=== PATIENT | male | born 1960 | race African-American/Black ===

== ENCOUNTER 2019-06-07 23:55 | Emergency (ER) | payer OTHER, SELFPAY ==
--- NOTE | ~2019-06-07 | XR_ITS ---
EXAMINATION: XR chest 2V DATE: 06/08/2019 00:38 INDICATION: Shortness of breath. Cough. TECHNIQUE: Frontal and lateral views of the chest were obtained. COMPARISON: None. FINDINGS: The chest demonstrates clear lungs without pneumonia, pleural effusion, or pneumothorax. Th ere is prominent extrapleural fat bilaterally. The heart size is normal. Median sternotomy wires and mediastinal surgical clips are seen, likely from prior coronary artery bypass grafting. IMPRESSION: 1. No acute cardiopulmonary disease. Reviewed, dictated and finalized at location A. O SURVEYOR
[2019-06-07 23:59] VITALS: BP 186/84; PULSE 96; RESP 24; TEMP 37.1; O2SAT 97
--- NOTE | 2019-06-08 00:08 | ECG_ITS ---
Measurements Intervals [place] Rate: 94 P: 62 PA: 172 QRS: 48 QRSD: 162 T: 52 QT: 404 QTc: 505 Interpretive Statements SINUS RHYTHM LEFT BUNDLE BRANCH BLOCK BASELINE WANDER- V6 ABNORMAL ECG Electronically Signed On 06-08-2019 6:48:20 MICA MINER by Coleman Escalante D.O.
[2019-06-08 00:36] LABS: Basophils Absolute Auto 0.1 K/mm3 (0.0-0.1); Basophils Percent Auto 0.8 % (0.2-1.2); Eosinophils Absolute Auto 0.3 K/mm3 (0-0.3); Eosinophils Percent Auto 3.4 % (0-4.4); Hematocrit 38.8 % (42.0-52.0); Hemoglobin 12.1 g/dL (14.0-18.0); Immature Granulocyte Absolute 0.02 K/mm3 (0.00-0.031); Immature Granulocyte Percent A 0.3 % (0-0.5); Lymphocytes Percent Auto 21.4 % (18.3-44.2); Mean Corpuscular HGB Conc 31.2 g/dl (32-36); Mean Corpuscular Volume 80.2 fl (80-100); Mean Platelet Volume 11.3 fl (7.4-10.4); Monocytes Absolute Auto 0.8 K/mm3 (0.1-0.6); Monocytes Percent Auto 10.1 % (2.6-8.5); Neutrophils Absolute Auto 5.1 K/mm3 (1.3-6.7); Platelet Count Result 157 k/mm3 (150-375); Red Blood Count 4.84 M/mm3 (4.6-6.20); Red Cell Distribution Width 15.3 % (11.5-14.5); White Blood Count 7.9 K/mm3 (4.5-10.0)
--- NOTE | 2019-06-08 00:47 | ED.URI ---
HPI - URI/Sore Throat General Chief Complaint: Shortness of Breath/Dyspnea Stated Complaint: CP Time Seen by Provider: 06/08/19 00:37 Source: patient and RN notes reviewed Mode of arrival: EMS Limitations: no limitations History of Present Illness HPI Narrative: Pt is a 58 y/o male who presents to the ED via EMS with c/o prouctive cough and midsternal chest pain starting 3-4 days ago. He notes that his pain radiates into his upper back, and reports that he only has chest pain when he is coughing. He denies jaw pain, shoulder pain, but reports his ribs feel tight when he coughs. He deneis feeling sweaty and no nausea. No syncope or feeling like he might pass out. Pt also reports mild SOB starting this evening, and reports mild sore throat. He currently denies any vomiting, abdominal pain, diarrhea, or back pain. MD elicited complaint: cough and other (Chest Pain) Onset (ago): day(s) (3-4) Associated symptoms: diaphoresis, sore throat and shortness of breath Related Data Allergies Allergy/AdvReac Type Severity Reaction Status Date / Time No Known Allergies Allergy Verified 06/08/19 00:07 Review of Systems Review of Systems: Narrative: CONSTITUTIONAL: Denies fever or chills. Reports sweats. ENT: Reports congestion, rhinorrhea, denies otalgia. Reports sore throat. CARDIOVASCULAR: Reports chest pain with coughing. Denies palpitations or edema. RESPIRATORY: Reports cough and dyspnea. GASTROINTESTINAL: Denies abdominal pain, nausea, vomiting, or diarrhea. MUSCULOSKELETAL: Denies joint pain, or myalgia. All systems reviewed & are unremarkable except as noted in HPI and below PMFSH Past Medical History Medical History Diabetes Surgical History Surgical History Surgical history unknown Social History Social History Smoking status: Unknown if ever smoked Exam Narrative: Exam Narrative: GENERAL: Well-appearing, well-nourished, and in no acute distress. HEAD: Normocephalic, atraumatic. EYES: PERRLA and EOMI. ENT: Nares clear, no rhinorrhea or epistaxis. Mucous membranes moist. Oropharynx clear without erythema or exudate. NECK: Supple. CHEST: No respiratory distress. Mild expiratory wheezing bilateral bases. Coarse breath sounds on rt lung base. No chest wall tenderness. HEART: Regular rate and rhythm. No murmur heard. Normal peripheral pulses. ABDOMEN: Soft, nontender, nondistended, normal active bowel sounds. EXTREMITIES: Normal range of motion. No edema. No calf tenderness. SKIN: Warm, dry, no rash. NEURO: No focal deficits. Alert and oriented. Course Course Emergency Course: Patient presents this facility for evaluation of productive cough. ABCs are intact and vital signs are notable for hypertension at the time of initial assessment. Patient is mildly tachypneic. No hypoxemia. No respiratory distress. Patient with EKG with left bundle branch block, reports he has had chest pain stable for 4 days. I doubt this is an acute finding. No prior visits to this ED as pt reports going to [facility] in the past. Reports more pain only with coughing. Chest x-ray is concerning for right lobe opacity, no leukocytosis. Gave patient a DuoNeb and steroids which did improve him symptoms. Given pain is mostly with coughing, reproducible chest wall tenderness, I feel in the presence of a normal troponin, and symptoms present over 4 days without relief, related to coughing, this is not likely to be ACS. No migratory pain. No ripping or tearing sensation to the back that would be suggestive of aortic pathology. Patient will be treated with antibiotics, steroid for bronchitis type symptoms. No previous records on this patient, he states he has history of chronic kidney disease. Advised follow-up with his primary care provider regarding his kidney function. NO recurrent chest pain or dyspnea
[2019-06-08 00:49] LABS: Blood Urea Nitrogen 24 mg/dL (9-20); Calcium 9.1 mg/dL (8.4-10.2); Carbon Dioxide 19 mmol/L (22-30); Chloride 105 mmol/L (98-107); Estimated Glomerular Filt Rate 51; Glucose 205 mg/dL (75-110); Sodium 143 mmol/L (137-145)
[2019-06-08] MEDS: IPRATROPIUM BR 0.02% INH SOLN 0.5 MG/2.5 ML VIAL INHALATION (01:19)
[2019-06-08] MEDS: ALBUTEROL SULFATE NEB 2.5 MG/0.5 ML INH 5 MG INHALATION (01:19)
[2019-06-08 01:22] VITALS: PULSE 90; RESP 22
[2019-06-08 01:25] LABS: INR 1.1; Prothrombin Time 13.9 Seconds (11.1-14.7)
[2019-06-08 01:26] LABS: Partial Thromboplastin Time 30.4 SECONDS (22.3-36.8)
[2019-06-08 01:27] VITALS: PULSE 94; RESP 24
[2019-06-08 01:30] LABS: Troponin I < 0.012 ng/mL (0.000-0.034)
[2019-06-08] MEDS: ACETAMINOPHEN 500 MG TABLET 1000 MG PO (01:34)
[2019-06-08] MEDS: methylPREDNISolone SOD SUCC 125 MG VIAL IV PUSH (01:34)
[2019-06-08] MEDS: SODIUM CHLORIDE 0.9% IV 500 ML 999 ML IV CONT (01:34)
[2019-06-08 02:25] VITALS: BP 155/77; PULSE 94; RESP 19; O2SAT 96
[2019-06-08 02:39] VITALS: BP 160/75; PULSE 90; RESP 20; O2SAT 97
== END 2019-06-08 02:42 | disposition home or self-care (01) ==
PROVIDERS: Emergency Provider Emergency Medicine
DX: J40 Bronchitis, not specified as acute or chronic (principal); E11.9 Type 2 diabetes mellitus without complications
CPT/HCPCS: 36415; 71046; 80048; 84484; 85025; 85610; 85730; 87804; 93005; 94640; 96374; 99284; A9270; J2930; J7040

== ENCOUNTER 2022-10-06 10:38 | Emergency (ER) | payer OTHER, SELFPAY ==
[2022-10-06 11:41] VITALS: BP 154/86; PULSE 97; RESP 18; TEMP 37.2; O2SAT 96
[2022-10-06 11:55] LABS: Appearance Urine Cloudy (Clear); Bacteria Urine 4+ /hpf; Bilirubin Urine Negative (Negative); Blood Urine Negative (Negative); Color Urine Yellow (Yellow); Glucose Urine UA 3+ mg/dL (Negative); Ketones Urine Negative (Negative); Leukocyte Esterase Ur 2+ LEU/UL (Negative); Nitrate Urine Negative (Negative); Non Pathogenic Casts 0-2; Protein Urine 1+ mg/dL (Negative); RBC Urine 0-2 /hpf (0-2); Squamous Epithelial Cell Urine None seen /hpf (Few); WBC Urine >100 /hpf; pH Urine 5.5 (5.0-9.0)
[2022-10-06 12:01] LABS: Add Urine Microscopic? YES
--- NOTE | 2022-10-06 12:24 | ED.MALEGU ---
HPI - Male Genitourinary General Chief complaint: Urogenital-Male Stated complaint: genitourinary Time Seen by Provider: 10/06/22 12:03 Source: patient and RN notes reviewed Mode of arrival: ambulatory Limitations: no limitations History of Present Illness HPI Narrative: This is a 61 year old male with history of hypertension, DM, asthma who presents for evaluation of dysuria for 3 weeks. Patient states that for 3 weeks he has been having increased urinary frequency, hesitancy, and intermittent dysuria. He states he feels like he also feels like he needs to have bowel movement after urinating. He reports constipation with out rectal bleeding. He denies fever, chills, nausea, vomiting, back pain, or abdominal pain. He states he took flomax 2 years ago after diagnosis of kidney stone but he does not take anything now . He has not follow up with a urologist in 2 years. He denies history of enlarged prostate. Related Data Allergies Allergy/AdvReac Type Severity Reaction Status Date / Time No Known Allergies Allergy Verified 06/08/19 00:07 Review of Systems Constitutional: Constitutional: Denies weakness Cardiovascular: Cardiovascular: Denies syncope, Denies rapid heart rate, Denies irregular heart rhythm, Denies leg edema and Denies dyspnea Respiratory: Respiratory: Denies chest congestion, Denies hemoptysis, Denies excessive phlegm production and Denies dyspnea Gastrointestinal: Gastrointestinal: Denies abdominal pain, Denies hematochezia, Denies diarrhea and Denies vomiting Genitourinary: Genitourinary: Denies hematuria, Denies genital lesions, Reports dysuria, Denies penile discharge, Denies testicular pain and Reports urinary frequency Musculoskeletal: Musculoskeletal: Denies joint swelling, Denies loss of height and Denies muscle weakness Neurologic: Denies syncope, Denies focal weakness and Denies weakness PMFSH Past Medical History Medical History (Updated 10/06/22 @ 12:31 by Zamzam Balderas MD) Asthma Diabetes Hypertension Surgical History Surgical History (Updated 10/06/22 @ 12:28 by Zamzam Balderas MD) H/O lithotripsy Surgical history unknown Social History Social History Smoking status: Unknown if ever smoked Exam Narrative: GENERAL: Well-appearing, well-nourished, and in no acute distress. HEAD: Normocephalic, atraumatic EYES: PERRLA and EOMI, conjunctiva clear without discharge THROAT:Mucous membranes moist, Oropharynx normal without erythema, exudate, peritonsillar swelling or fluctuance NECK: Supple, without lymphadenopathy or mass RESPIRATORY: No respiratory distress, Airway patent, Respirations non-labored, Clear to auscultation without rales, rhonchi or wheeze HEART: Regular rate and rhythm. No murmur heard. Normal peripheral pulses. ABDOMEN: Soft, nontender, nondistended, normal active bowel sounds. No masses. No rebound or guarding, No organomegaly. EXTREMITIES: No edema, normal strength with full range of motion. SKIN: Warm, dry, normal color without rash NEURO: Alert and oriented x3. CN 2-12 grossly intact. No focal deficits. PSYCH: Normal mood and affect. Course Reevaluation(s) Reevaluation #1: I discussed with patient that urinalysis shows UTI. He states he was able to urinate after nurse measured 300 on bladder scan. I discussed option of hawley catheter placement vs discharge home with antibiotics and flomax. I discussed with patient I think this medication with reduce inflammation in prostate and help him to urinate better. He wants to hold off on hawley catheter for now. I discussed he will need follow up with urologist. He appointment this week with new PCP. Date: 10/06/22 Time: 12:28 Vital Signs Vital signs: Vital Signs Temperature 98.9 F 10/06/22 11:41 Pulse Rate 97 10/06/22 11:41 Respiratory Rate 18 10/06/22 11:41 Blood Pressure 154/86 H 10/06/22 11:41 Pulse Oximetry 96 10/06/22 11:41 Ox
[2022-10-06 12:53] VITALS: BP 142/80; PULSE 88; RESP 16; O2SAT 98
== END 2022-10-06 12:54 | disposition home or self-care (01) ==
PROVIDERS: Preventive Medicine Aerospace Medicine; Emergency Provider General Practice
DX: N41.0 Acute prostatitis (principal); E11.9 Type 2 diabetes mellitus without complications; I10 Essential (primary) hypertension; J45.909 Unspecified asthma, uncomplicated
CPT/HCPCS: 81001; 87077; 87086; 87088; 87186; 99283

== ENCOUNTER 2023-03-16 12:01 | Emergency (ER) | payer OTHER, SELFPAY ==
--- NOTE | ~2023-03-16 | XR_ITS ---
XR foot RT min 3V 03/16/2023 14:03 Indication: Right foot pain and swelling Procedure: 4 views right foot Comparison: No prior studies for comparison. Findings: Lisfranc joint intact. No fracture or traumatic malalignment. There are degenerative calcan eal enthesophytes. No foreign bodies. Mild diffuse soft tissue swelling. Impression: 1: No acute fracture. Reviewed, dictated and finalized at location A. S AND LEASING AGENT Impression: 1: No acute fracture.
[2023-03-16 12:13] VITALS: BP 173/77; PULSE 77; RESP 16; TEMP 36.7; O2SAT 97
--- NOTE | 2023-03-16 13:58 | ED.EXTPRO ---
HPI - Extremity Problem General Chief complaint: Extremity Problem,Nontraumatic Stated complaint: R foot pain Time Seen by Provider: 03/16/23 13:32 Source: patient, RN notes reviewed and old records reviewed Mode of arrival: wheelchair Limitations: no limitations History of Present Illness HPI Narrative: This is a 62 year old male with history of DM, CHF who presents for evaluation for right foot pain. Patient developed right foot pain yesterday. He reports pain is located dorsal and lateral foot. He reports bilateral foot swelling that is chronic. He denies any injury. He has not taken any medication for pain. Related Data Home Medications Medication Instructions Recorded Confirmed allopurinol 300 mg tablet 300 mg PO DAILY 11/06/22 atorvastatin 80 mg tablet 80 mg PO DAILY 11/06/22 carvedilol 12.5 mg tablet 12.5 mg PO Q12H 11/06/22 famotidine 20 mg tablet 20 mg PO DAILY 11/06/22 liraglutide 0.6 mg/0.1 mL (18 mg/3 0.6 mg subcut DAILY 11/06/22 mL) subcutaneous pen injector (SureWaves 3-José Manuel) mometasone-formoterol HFA 200 2 puff inhalation BID 11/06/22 mcg-5 mcg/actuation aerosol inhaler (Dulera) montelukast 10 mg tablet 10 mg PO DAILY 11/06/22 omeprazole 10 mg capsule,delayed 10 mg PO DAILY 11/06/22 release spironolactone 25 mg tablet 25 mg PO DAILY 11/06/22 tiotropium bromide 2.5 2 puff inhalation DAILY 11/06/22 mcg/actuation mist for inhalation (Spiriva Respimat) valsartan 160 mg tablet 160 mg PO BID 11/06/22 Allergies Allergy/AdvReac Type Severity Reaction Status Date / Time No Known Allergies Allergy Verified 03/16/23 12:01 [facility] Past Medical History Medical History (Updated 03/16/23 @ 15:17 by Zamzam Balderas MD) Asthma Benign prostatic disease Congestive heart failure COPD (chronic obstructive pulmonary disease) Diabetes GERD (gastroesophageal reflux disease) Hyperlipidemia Hypertension Obstructive sleep apnea Surgical History Surgical History H/O lithotripsy History of coronary artery bypass graft Surgical history unknown Family History Family History (Updated 11/06/22 @ 14:42 by Meghan Block MA) Father Hypertension Heart disease Social History Social History Smoking status: Unknown if ever smoked Alcohol intake: never Substance use: never Substance use type: does not use Lack of Transportation: No Lack of Food: Never True Current Housing: I Have Housing Concerned About Future Housing: No Difficulty Paying Gas/Electric Bills: No Difficulty Paying for Meds: No Currently Unemployed: YES Education: High School Diploma/GED Living arrangements: with family Occupation/Education: unemployed Gender identity (if verbalized by the patient): Male Sexual Orientation (if Verbalized by the Patient): Straight or Heterosexual Spiritual care concerns: No Exam Const: General: no acute distress and alert Nutritional Appearance: obese Orientation/consciousness: patient oriented x3 HENMT: Head: normal to inspection Chest: Chest palpation & inspection: normal inspection of the chest Resp: Effort & Inspection: normal respiratory effort Neuro: General: patient oriented x3, moves all extremities and CN's II-XI intact bilaterally Extrem: General: edema (bilateral pedal edema) Other: chronic venous stasis left lower extremity posterior; no deformity or erythema to foot, no tenderness Psych: Mental Status: mental status grossly normal Affect: normal affect Attitude: cooperative Course Reevaluation(s) Reevaluation #1: I Discussed xray and labs with patient. He is complaining of itching to left lower extremity caused by his stasis dermatitis. I discussed compression of his lower extremities. Date: 03/16/23 Time: 15:15 Vital Signs Vital signs: Vital Signs Temperature 98.0 F 03/16/23 12:13 Pulse Ra
[2023-03-16] MEDS: ACETAMINOPHEN 500 MG TABLET 1000 MG PO (14:24)
[2023-03-16] MEDS: INDOMETHACIN 25 MG CAPSULE PO (14:25)
[2023-03-16 14:29] LABS: Basophils Percent Auto 0.4 % (0.2-1.2); Eosinophils Absolute Auto 0.2 K/mm3 (0-0.3); Eosinophils Percent Auto 3.5 % (0-4.4); Hematocrit 38.2 % (42.0-52.0); Immature Granulocyte Absolute 0.03 K/mm3 (0.00-0.031); Immature Granulocyte Percent A 0.4 % (0-0.5); Lymphocytes Absolute Auto 1.29 K/mm3 (0.9-3.2); Mean Corpuscular HGB Conc 31.4 g/dl (32-36); Mean Corpuscular Hemoglobin 26.1 pg (26-34); Mean Corpuscular Volume 83.2 fl (80-100); Monocytes Absolute Auto 0.6 K/mm3 (0.1-0.6); Monocytes Percent Auto 8.4 % (2.6-8.5); Neutrophils Absolute Auto 4.6 K/mm3 (1.3-6.7); Neutrophils Percent Auto 68.3 % (45.5-73.1); Platelet Count Result 147 k/mm3 (150-375); Red Blood Count 4.59 M/mm3 (4.6-6.20); Red Cell Distribution Width 15.6 % (11.5-14.5); White Blood Count 6.8 K/mm3 (4.5-10.0)
[2023-03-16 14:39] LABS: Anion Gap 10 mmol/L (8-16); Blood Urea Nitrogen 12 mg/dL (9-20); Calcium 8.7 mg/dL (8.4-10.2); Carbon Dioxide 21 mmol/L (22-30); Chloride 110 mmol/L (98-107); Estimated CRCL calculation 73 ml/min; Estimated Glomerular Filt Rate > 60; Glucose 194 mg/dL (65-110); Potassium 3.2 mmol/L (3.4-5.0); Sodium 141 mmol/L (137-145); Uric Acid 6.9 mg/dL (3.5-8.5)
== END 2023-03-16 15:30 | disposition home or self-care (01) ==
PROVIDERS: Emergency Provider General Practice
DX: M79.671 Pain in right foot (principal); I87.2 Venous insufficiency (chronic) (peripheral); E11.9 Type 2 diabetes mellitus without complications; I50.9 Heart failure, unspecified; I11.0 Hypertensive heart disease with heart failure; J44.9 Chronic obstructive pulmonary disease, unspecified; E78.5 Hyperlipidemia, unspecified; N40.0 Benign prostatic hyperplasia without lower urinary tract symptoms; K21.9 Gastro-esophageal reflux disease without esophagitis; G47.33 Obstructive sleep apnea (adult) (pediatric); Z95.1 Presence of aortocoronary bypass graft; Z79.85 Long-term (current) use of injectable non-insulin antidiabetic drugs; Z79.4 Long term (current) use of insulin
CPT/HCPCS: 36415; 73630; 80048; 84550; 85025; 99283; A9270

== ENCOUNTER 2023-05-31 14:36 | Emergency (ER) | payer OTHER, SELFPAY ==
--- NOTE | ~2023-05-31 | CT_ITS ---
EXAMINATION: CTA chest PE protocol DATE: 05/31/2023 22:49 INDICATION: dyspnea, elevated D-dimer TECHNIQUE: Computed tomography angiography (CTA) of the chest was performed with 100 mL Omnipaque-350 intravenous contrast timed to evaluate the pulmonary arteries. Coronal maximum intensity projection 3D-reconstructions were created by the technologist. The dose-length product (DLP) was 2194.68 mGy-cm . Automated exposure control and iterative reconstruction technique were employed. COMPARISON: X-ray chest, same date. FINDINGS: Lung parenchyma and airways: Mild septal thickening. Dependent atelectasis. Pleura: Small bilateral pleural fluid collections. Thoracic inlet, axillae and chest wall: Intact sternotomy wires. Bilateral symmetric gynecomastia Thoracic aorta: Mild arch calcification. Mediastinum: Normal. Heart and pericardium: Cardiomegaly. Coronary artery calcifications: Mild. Upper abdomen: Splenic cysts/hemangiomas. Bones: No acute osseous finding. Pulmonary arteries: Study quality: Borderline pulmonary arterial enhancement, even after repeated harris ging attempts. No pulmonary emboli detected. IMPRESSION: No CT evidence of acute pulmonary embolus in the remaining pulmonary arteries. Cardiomegaly with mild interstitial pulmonary edema. Small bilateral pleural effusions. Reviewed, dictated and finalized at location K. CUTTING MACHINE OPERATOR IMPRESSION: No CT evidence of acute pulmonary embolus in the remaining pulmonary arteries. Cardiomegaly with mild interstitial pulmonary edema. Small bilateral pleural ef fusions.
--- NOTE | ~2023-05-31 | XR_ITS ---
EXAMINATION: XR chest 2V Exam Date/Time: 05/31/2023 15:00 PARTS CATALOGER HISTORY: Cough, SOB FOR 2 MONTHS Comparison: 06/08/2019. RESULT: Lines, tubes, and devices: Intact sternotomy wires. Lungs and pleura: Streaky perihilar opacities. Septal thickening. Mild bilateral costophrenic angle blunting. Cardiomediastinal silhouette: Stable. Other: No acute osseous or upper abdominal finding. IMPRESSION: Mild pulmonary edema. Small bilateral pleural effusions. Reviewed, dictated and finalized at location K. S CATALOGER
[2023-05-31 14:57] VITALS: BP 195/90; PULSE 86; RESP 18; TEMP 37; O2SAT 95
--- NOTE | 2023-05-31 19:05 | ECG_ITS ---
Measurements Intervals [place] Rate: 76 P: 76 [place]: 161 QRS: 97 QRSD: 153 T: 18 QT: 445 QTc: 500 Interpretive Statements SINUS RHYTHM WITH OCCASIONAL SUPRAVENTRICULAR PREMATURE COMPLEXES LEFT BUNDLE BRANCH BLOCK ABNORMAL ECG COMPARED TO ECG 06/08/2019 00:00:42 INTRAVENTRICULAR CONDUCTION DELAY NOW PRESENT Electronically Signed On 05-31-2023 19:24:52 DISTRICT MANAGER POSTAL SERVICE by Dante Rust M.D.
--- NOTE | 2023-05-31 19:27 | ED_ITS ---
Pulse Oximetry 95 05/31/23 14:57 Oxygen Delivery Room Air 05/31/23 14:57 Temperature 98.9 F 05/31/23 19:51 Pulse Rate 83 05/31/23 20:05 Respiratory Rate 20 05/31/23 20:05 Blood Pressure 175/99 H 05/31/23 19:51 Pulse Oximetry 100 05/31/23 19:54 Oxygen Delivery Room Air 05/31/23 19:54 MDM - URI/Sore Throat MDM Narrative Medical decision making narrative: Patient presents with the above complaint. Initial vitals are remarkable for hypertension. Physical examination as noted above. Plan discussed: Laboratory analysis, EKG, chest x-ray, furosemide 40 mg IV push, DuoNeb breathing treatment, 120 mg IV push methyl prednisolone, azithromycin p.o. 500 mg. Patient was reassessed at the bedside. No changes in physical exam. Patient is in no acute distress. The patient has remained stable throughout the entire ED visit. Counseled patient regarding diagnostic results and potential diagnosis. Anticipatory guidance provided. Patient instructed to follow up with PCP within 2 days. Patient counseled on: false reassurance from an emergency department evaluation; no current evidence of a medical emergency; return immediately for any new, recurrent, worsening, concerning, or refractory symptoms. Patient prescribed azithromycin. Prescription sent to preferred pharmacy. Medications discussed with patient. Additional verbal and printed discharge instructions were given and discussed with the patient. Patient verbally acknowledges understanding of condition and discharge instructions. All questions were answered to the patient's satisfaction. Patient is in agreement with the plan of care. The patient is stable for discharge and was discharged without incident. Differential Diagnosis Differential diagnosis: Likely upper respiratory infection, viral infection, bronchitis, influenza and other (ACS, pneumonia, pulmonary embolism, asthma exacerbation, heart failure exacerbation.) Medical Records Attestation: I reviewed the patient's medical records. Lab Data Attestation: I reviewed the patient's lab results. Lab results narrative: CBC reveals a hemoglobin of 12.7 and otherwise grossly within normal limits. Coags are grossly within normal limits. D-dimer 0.84. VBG with a pH is 7.499 and a pCO2 of 28.2 and a bicarb of 21.4. Lactic acid is 1.0. Rapid COV ID/influenza/RSV PCR testing is negative. Procalcitonin 0.1. Comprehensive metabolic panel reveals a chloride of 110, glucose 172, otherwise grossly within normal limits. CRP is less than 0.5. Troponin is 0.040. Magnesium 2.0. Repeat troponin is down trending 0.038. 05/31/23 19:38 05/31/23 21:24 Labs: Lab Results 05/31/23 05/31/23 05/31/23 Range/Units 19:38 19:44 21:24 WBC 5.7 (4.5-10.0) K/mm3 RBC 5.01 (4.6-6.20) M/mm3 Hgb 12.7 L (14.0-18.0) g/dL Hct 41.2 L (42.0-52.0) % MCV 82.2 (80-100) fl MCH 25.3 L (26-34) pg MCHC 30.8 L (32-36) g/dl RDW 14.8 H (11.5-14.5) % Plt Count 164 (150-375) k/mm3 MPV 12.5 H (7.4-10.4) fl Immature Gran % (Auto) 0.5 (0-0.5) % Neut % (Auto) 63.0 (45.5-73.1) % Lymph % (Auto) 24.7 (18.3-44.2) % [place] % (Auto) 7.6 (2.6-8.5) % Eos % (Auto) 3.7 (0-4.4) % Baso
--- NOTE | 2023-05-31 19:27 | ED.URI ---
HPI - URI/Sore Throat General Chief Complaint: Upper Respiratory Infection Stated Complaint: uri/fever Time Seen by Provider: 05/31/23 19:05 Source: patient Limitations: no limitations History of Present Illness HPI Narrative: Patient is a 62-year-old male presents to the emergency department complaining of a cough and difficulty breathing for the past couple months and has not gotten markedly worse rather has not gone away prompting to come get further evaluation. Patient states that his cough is productive of green tinged sputum, has not seen anyone about this and is the taking Robitussin for it in addition to his breathing treatments for his asthma at home. Patient denies smoking. Patient admits to recent steroid use approximately 1 month ago. Patient is as breathing treatments seem to be helping a little bit of times. Patient admits to history of open heart surgery and has a history of heart failure for which he has been taking his diuretics as prescribed and seeing a heart doctor regularly and notes that his leg swelling is fairly stable and not worsening. Patient denies history of blood clots. Patient denies unilateral lower extremity swelling. Patient denies chest pain, fever, recent injuries, recent illness, sore throat, abdominal pain, nausea, vomiting, diarrhea, melena, hematochezia, numbness, weakness. Patient denies orthopnea. Related Data Home Medications Medication Instructions Recorded Confirmed allopurinol 300 mg tablet 300 mg PO DAILY 11/06/22 atorvastatin 80 mg tablet 80 mg PO DAILY 11/06/22 carvedilol 12.5 mg tablet 12.5 mg PO Q12H 11/06/22 famotidine 20 mg tablet 20 mg PO DAILY 11/06/22 liraglutide 0.6 mg/0.1 mL (18 mg/3 0.6 mg subcut DAILY 11/06/22 mL) subcutaneous pen injector (Victoza 3-José Manuel) mometasone-formoterol HFA 200 2 puff inhalation BID 11/06/22 mcg-5 mcg/actuation aerosol inhaler (Dulera) montelukast 10 mg tablet 10 mg PO DAILY 11/06/22 omeprazole 10 mg capsule,delayed 10 mg PO DAILY 11/06/22 release spironolactone 25 mg tablet 25 mg PO DAILY 11/06/22 tiotropium bromide 2.5 2 puff inhalation DAILY 11/06/22 mcg/actuation mist for inhalation (Spiriva Respimat) valsartan 160 mg tablet 160 mg PO BID 11/06/22 Allergies Allergy/AdvReac Type Severity Reaction Status Date / Time No Known Allergies Allergy Verified 05/31/23 15:00 Review of Systems Review of Systems: A 10 system review of systems was completed on the patient and is negative except for what is stated in the HPI. Nursing and ancillary documentation was reviewed. [facility] Past Medical History Medical History (Updated 05/31/23 @ 23:45 by Quincy Patel DO) Asthma Benign prostatic disease Congestive heart failure COPD (chronic obstructive pulmonary disease) Diabetes GERD (gastroesophageal reflux disease) Hyperlipidemia Hypertension Obstructive sleep apnea Surgical History Surgical History H/O lithotripsy History of coronary artery bypass graft Surgical history unknown Family History Family History (Updated 11/06/22 @ 14:42 by Meghan Block MA) Father Hypertension Heart disease Social History Social History Smoking status: Unknown if ever smoked Alcohol intake: never Substance use: never Substance use type: does not use Lack of Transportation: No Lack of Food: Never True Current Housing: I Have Housing Concerned About Future Housing: No Difficulty Paying Gas/Electric Bills: No Difficulty Paying for Meds: No Currently Unemployed: YES Education: High School Diploma/GED Living arrangements: with family Occupation/Education: unemployed Gender identity (if verbalized by the patient): Male Sexual Orientation (if Verbalized by the Patient): Straight or Heterosexual Spiritual care concerns: No Comments At time of signature, I have reviewe
[2023-05-31] MEDS: IPRATROPIUM 0.5 MG/ALBUTEROL SULFATE 2.5 MG AMPUL.NEB 3 ML INHALATION (19:41)
[2023-05-31 19:43] VITALS: PULSE 75; RESP 18
[2023-05-31] MEDS: FUROSEMIDE INJ 40 MG/4 ML VIAL IV PUSH (19:45)
[2023-05-31] MEDS: methylPREDNISolone SOD SUCC 40 MG VIAL 120 MG IV PUSH (19:46)
[2023-05-31] MEDS: AZITHROMYCIN 250 MG TABLET 500 MG PO (19:46)
[2023-05-31 19:51] VITALS: BP 175/99; PULSE 72; RESP 16; TEMP 37.2; O2SAT 100
[2023-05-31 19:54] VITALS: O2SAT 100
[2023-05-31 19:57] LABS: Basophils Percent Auto 0.5 % (0.2-1.2); Eosinophils Absolute Auto 0.2 K/mm3 (0-0.3); Eosinophils Percent Auto 3.7 % (0-4.4); Hematocrit 41.2 % (42.0-52.0); Hemoglobin 12.7 g/dL (14.0-18.0); Immature Granulocyte Absolute 0.03 K/mm3 (0.00-0.031); Immature Granulocyte Percent A 0.5 % (0-0.5); Lymphocytes Percent Auto 24.7 % (18.3-44.2); Mean Corpuscular HGB Conc 30.8 g/dl (32-36); Mean Corpuscular Hemoglobin 25.3 pg (26-34); Mean Corpuscular Volume 82.2 fl (80-100); Mean Platelet Volume 12.5 fl (7.4-10.4); Monocytes Absolute Auto 0.4 K/mm3 (0.1-0.6); Monocytes Percent Auto 7.6 % (2.6-8.5); Neutrophils Absolute Auto 3.6 K/mm3 (1.3-6.7); Platelet Count Result 164 k/mm3 (150-375); Red Blood Count 5.01 M/mm3 (4.6-6.20); Red Cell Distribution Width 14.8 % (11.5-14.5); White Blood Count 5.7 K/mm3 (4.5-10.0)
[2023-05-31 19:59] LABS: Fractional Inspired Oxygen 21 %; HCO3 VBG 21.4 mEq/l (24.0-30.0); PO2 VBG 77.9 mmHg (35.0-45.0)
[2023-05-31 20:00] LABS: pH VBG 7.499 (7.300-7.400)
[2023-05-31 20:01] LABS: Device ROOM AIR; PCO2 VBG 28.2 mmHg (42.0-48.0)
[2023-05-31 20:05] VITALS: PULSE 83; RESP 20
[2023-05-31 20:11] LABS: INR 1.1; Partial Thromboplastin Time 30.8 SECONDS (22.3-36.8); Prothrombin Time 14.4 Seconds (11.1-14.7)
[2023-05-31 20:23] LABS: D Dimer 0.84 ug/mL (<0.48)
[2023-05-31 20:31] LABS: Procalcitonin 0.1 ng/mL
[2023-05-31 20:33] LABS: Influenza A QL RT-PCR Negative (Negative); Influenza B QL RT-PCR Negative (Negative); RSV RNA, RT-PCR Negative (Negative); SARS-CoV-2 RNA PCR Negative (Negative)
[2023-05-31 21:57] LABS: Alanine Aminotransferase 23 U/L (6-50); Albumin Level 4.1 g/dL (3.5-5.1); Alkaline Phosphatase 87 U/L (38-126); Anion Gap 9 mmol/L (8-16); Aspartate Amino Transferase 22 U/L (17-59); Bilirubin,Total 0.7 mg/dL (0.2-1.3); Blood Urea Nitrogen 14 mg/dL (9-20); CRP < 0.5 mg/dL (<1.0); Calcium 9.4 mg/dL (8.4-10.2); Carbon Dioxide 23 mmol/L (22-30); Chloride 110 mmol/L (98-107); Estimated CRCL calculation 67 ml/min; Estimated Glomerular Filt Rate > 60; Glucose 172 mg/dL (65-110); Potassium 3.5 mmol/L (3.4-5.0); Sodium 142 mmol/L (137-145)
--- NOTE | 2023-05-31 22:08 | ECG_ITS ---
Measurements Intervals [place] Rate: 76 P: 71 [place]: 153 QRS: 89 QRSD: 165 T: -55 QT: 449 QTc: 506 Interpretive Statements SINUS RHYTHM WITH SINUS ARRHYTHMIA LEFT BUNDLE BRANCH BLOCK ABNORMAL ECG COMPARED TO ECG 05/31/2023 19:20:13 NO DIFFERENCE Electronically Signed On 06-01-2023 8:07:47 GATE SHEAR OPERATOR by Dante Rust M.D.
[2023-05-31 23:00] LABS: Troponin I 0.038 ng/mL (0.000-0.034)
[2023-06-01 00:20] VITALS: BP 185/85; PULSE 78; RESP 18; O2SAT 98
== END 2023-06-01 02:58 | disposition home or self-care (01) ==
PROVIDERS: Emergency Provider Student in an Organized Health Care Education/Training Program; PCP Family Medicine
DX: I50.9 Heart failure, unspecified (principal); R06.00 Dyspnea, unspecified; R05.9 Cough, unspecified; Z20.822 Contact with and (suspected) exposure to COVID-19; J44.9 Chronic obstructive pulmonary disease, unspecified; I11.0 Hypertensive heart disease with heart failure; E11.9 Type 2 diabetes mellitus without complications; E78.5 Hyperlipidemia, unspecified; N40.0 Benign prostatic hyperplasia without lower urinary tract symptoms; K21.9 Gastro-esophageal reflux disease without esophagitis; G47.33 Obstructive sleep apnea (adult) (pediatric); Z95.1 Presence of aortocoronary bypass graft; Z79.85 Long-term (current) use of injectable non-insulin antidiabetic drugs; Z79.4 Long term (current) use of insulin; I44.7 Left bundle-branch block, unspecified; I49.1 Atrial premature depolarization; I51.7 Cardiomegaly
CPT/HCPCS: 36415; 71046; 71275; 80053; 82803; 83605; 83735; 84145; 84484; 85025; 85380; 85610; 85730; 86140; 87637; 93005; 94640; 96374; 96375; 99284; A9270; J1940; J2920; Q9967

== ENCOUNTER 2024-04-12 15:24 | Inpatient (IN) | payer OTHER, MEDICAID, SELFPAY ==
[2024-04-12] VITALS (14 sets, daily range): BP systolic 149–171; BP diastolic 56–118; PULSE 76–91; RESP 16–26; TEMP 36.6–36.7; O2SAT 94–99; BMI 42.0
--- NOTE | ~2024-04-12 | US_ITS ---
Limited Abdominal Sonogram: Real-time sonographic imaging of the abdomen was performed. Clinical History: Splenic abnormality on CT COMPARISON: CT scan dated 04/12/2024 Findings: The liver appears echogenic, with no evidence of mass lesion or bile duct dilatation. Main portal vein demonstrates normal direction of flow. The gallbladder is well distended, and appears no rmal with no evidence of gallstone or wall thickening. The common bile duct measures 3 mm. The visua lized pancreas, aorta, and IVC are unremarkable. Spleen measures 15.3 x 10.5 x 12.2 cm in size. There is a hypoechoic solid splenic mass measuring 10. 4 x 9.4 x 9.9 cm, with possible small central cystic component. Impression: Diffuse fatty infiltration of liver. 10.4 x 9.4 x 9.9 cm predominantly echogenic, solid splenic mass. This could reflect large splenic hem angioma. Further evaluation with pre and postcontrast MRI should be considered. Reviewed, dictated and finalized at [facility]. ARCHITECT Impression: Diffuse fatty infiltration of liver. 10.4 x 9.4 x 9.9 cm predominantly echogenic, solid splenic mass. This could ref lect large splenic hemangioma. Further evaluation with pre and postcontrast MRI should be considered.
--- NOTE | ~2024-04-12 | CT_ITS ---
CTA chest PE protocol Ordering provider: Lenin Martinez MD History: 63 years Male with . sob, elevated ddimer . Comparison: May 31, 2023 Technique: CT angiogram chest was performed following timed intravenous injection of contrast. Thin s lice axial images and reformatted coronal images were obtained. Three dimensional reformatted images of the chest were also obtained using a [employer] workstation. . Automated exposure control and iterati ve reconstruction technique were employed. The dose-length product was 997.71 mGy-cm. 100 mL Omnipaqu e 350 was given IV. Findings: PULMONARY ARTERIES: No pulmonary embolus. VISUALIZED THORACIC INLET: Prominent left thyroid with possible nodule. Ultrasound evaluation advised . MEDIASTINUM: Aorta/coronary arteries: Mild atheromatous disease. Heart/other: The heart is not enlarged. Lymph nodes: No mediastinal or hilar adenopathy. Postoperative changes in the mediastinum. LUNGS: No pulmonary nodules or masses. No pneumothorax. Bilateral pleural effusion larger on the right side is seen with adjacent atelectasis versus pneumonia.. VISUALIZED UPPER ABDOMEN: Bulge in the spleen is seen which may indicate a mass with small hypodensit ies. Ultrasound evaluation advised. Otherwise, the visualized upper abdomen is normal. MUSCULOSKELETAL: Soft tissues: The superficial soft tissues are normal. Bones: Age appropriate degenerative changes of the spine. IMPRESSION: 1. No pulmonary embolism. 2. Bilateral moderate pleural effusion with adjacent atelectasis versus pneumonia. 3. Large bulge seen in the spleen unchanged from previous examination. Further evaluation advised to exclude a mass. Abscess or hematoma is less likely although cannot be excluded. Reviewed, dictated and finalized at location [facility]. [facility] [employer] IMPRESSION: 1. No pulmonary embolism. 2. Bilateral moderate pleural effusion with adjacent atelectasis versus pneumo adriana. 3. Large bulge seen in the spleen unchanged from previous examination. Further evaluation advised to exclude a mass. Abscess or hematoma is less likely altho ugh cannot be excluded.
--- NOTE | ~2024-04-12 | XR_ITS ---
EXAMINATION: XR chest 1V portable DATE: 04/12/2024 16:59 INDICATION: Shortness of breath. TECHNIQUE: A single frontal view of the chest was obtained. COMPARISON: Chest 2 views 05/31/2023, chest CT 05/31/2023 FINDINGS: There are small pleural effusions. There are mild bilateral perihilar airspace opacities, c onsistent with mild pulmonary edema. No pneumothorax. Cardiomegaly is noted. Median sternotomy wires are noted. IMPRESSION: 1. Mild pulmonary edema. 2. Small pleural effusions. 3. Cardiomegaly. Reviewed, dictated and finalized at location A. [facility] [employer]
--- NOTE | 2024-04-12 15:36 | ED_ITS ---
HPI - SOB/Dyspnea General Chief Complaint: Shortness of Breath/Dyspnea <Roxy Bloom PA-C - Last Filed: 04/12/24 16:23> Stated Complaint: shortmess of breath cough <Roxy Bloom PA-C - Last Filed: 04/12/24 16:23> Time Seen by Provider: 04/12/24 15:36 <PUMA Gomes Last Filed: 04/12/24 16:23> Focused HPI: Patient is a 63-year-old male, with past medical history of asthma, who presents the ED with report of shortness of breath. Reports he has been feeling increasingly short of breath over the past few weeks, progressively worsening to the point having trouble walking to/from the bathroom, speaking full sentences. Also reports having recent cough, congestion, intermittent swelling in BLE. Denies fevers. Denies CP. GENERAL: Well-appearing. morbidly obese with BMI of 40.9, and in no acute distress. HEAD: Normocephalic, atraumatic. CHEST: Decreased air movement throughout, occ exp wheezing. Some accessory muscle use, tachypneic HEART: Regular rate and rhythm.? MSK: 1+ pitting edema BLE NEURO: ?Alert and oriented x3. Patient screened in triage and initial orders placed.? ?Additional care and disposition to be based upon?diagnostic testing and treatment. 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 Denies any fever or chills. Patient states that he goes to [facility] for his care. Has not seen inclusion intern in the recent past. No previous history of CAD. Never had stress test Upon chart review patient was admitted in the hospital in May of this year with CHF <Lenin Martinez MD - Last Filed: 04/12/24 18:41> MD elicited complaint: shortness of breath and cough <Lenin Martinez MD - Last Filed: 04/12/24 18:41> Pertinent past history: asthma <Lenin Martinez MD - Last Filed: 04/12/24 18:41> Onset (ago): month(s) (3) <Lenin Martinez MD - Last Filed: 04/12/24 18:41> Timing: constant <Lenin Martinez MD - Last Filed: 04/12/24 18:41> Severity: moderate <Lenin Martinez MD - Last Filed: 04/12/24 18:41> Exacerbating factors: nothing <Lenin Martinez MD - Last Filed: 04/12/24 18:41> Relieving factors: nothing <Lenin Martinez MD - Last Filed: 04/12/24 18:41> Known history of: asthma <Leinn Martinez MD - Last Filed: 04/12/24 18:41> Associated symptoms: denies other symptoms <Lenin Martinez MD - Last Filed: 04/12/24 18:41> Treatment prior to arrival: none <Lenin Martinez MD - Last Filed: 04/12/24 18:41> Related Data Home Medications: Home Medications ?Medication ?Instructions ?Recorded ?Confirmed ?Last Taken ?Type allopurinol 300 mg tablet 300 mg PO DAILY 11/06/22 Unknown History atorvastatin 80 mg tablet 80 mg PO DAILY 11/06/22 Unknown History carvedilol 12.5 mg tablet 12.5 mg PO Q12H 11/06/22 Unknown History famotidine 20 mg tablet 20 mg PO DAILY 11/06/22 Unknown History liraglutide 0.6 mg/0.1 mL (18 mg/3 0.6 mg subcut DAILY 11/06/22 Unknown History mL) subcutaneous pen injector ([employer] 3-José Manuel) mometasone-formoterol HFA 200 2 puff inhalation BID 11/06/22 Unknown History mcg-5 mcg/actuation aerosol inhaler (Dulera) montelukast 10 mg tablet 10 mg PO DAILY 11/06/22 Unknown History omeprazole 10 mg capsule,delayed 10 mg PO DAILY 11/06/22 Unknown History release spironolactone 25 mg tablet 25 mg PO DAILY 11/06/22 Unknown History tiotropium bromide 2.5 2 puff inhalation DAILY 11/06/22 Unknown History mcg/actuation mist for inhalation (Spiriva Respimat) valsartan 160 mg tablet 160 mg PO BID 11/06/22 Unknown History <Roxy Bloom PA-C - Last Filed: 04/12/24 16:23> Allergies/Adverse Reactions: Allergies Allergy/AdvReac Type Severity Reaction Status Date / Time No Known Allergies Allergy Verified 04/12/24 16:36 <Roxy Bloom PA-C - Last Filed: 04/12/24 16:23> Review of Systems 2 Review of Systems: All systems reviewed & are unremarkable except as noted in HPI and below <Lenin Martinez MD - Last Filed: 04/12/24 18:41> Constitutional: Constitutional: Reports no additional constitutional complaints <Lenin Martinez MD - Last Filed: 04/12/24 18:41> Eyes: Eyes: Reports no additional eye complaints <Lenin Martinez MD - Last Filed: 04/12/24 18:41> ENT: Reports system reviewed and no additional complaints, except as documented <Lenin Martinez MD - Last Filed: 04/12/24 18:41> Cardiovascular: Cardiovascular: Reports no additional cardiovascular complaints <Lenin Martinez MD - Last Filed: 04/12/24 18:41> Respiratory: Respiratory: Reports as per HPI <Lenin Martinez MD - Last Filed: 04/12/24 18:41> Gastrointestinal: Gastrointestinal: Reports no additional gastrointestinal complaints <Lenin Martinez MD - Last Filed: 04/12/24 18:41> Musculoskeletal: Musculoskeletal: Reports no additional musculoskeletal complaints <Lenin Martinez MD - Last Filed: 04/12/24 18:41> Neurologic: Reports system reviewed and no additional complaints, except as documented <Lenin Martinez MD - Last Filed: 04/12/24 18:41> [facility] Past Medical History Medical History: Medical History Obstructive sleep apnea Benign prostatic disease GERD (gastroesophageal reflux disease) Congestive heart failure Hyperlipidemia COPD (chronic obstructive pulmonary disease) Asthma Hypertension Diabetes <Roxy Bloom PA-C - Last Filed: 04/12/24 16:23> Surgical History Surgical History: Surgical History History of coronary artery bypass graft H/O lithotripsy Surgical history unknown <Roxy Bloom PA-C - Last Filed: 04/12/24 16:23> Family History Family History: Family History Father Hypertension Heart disease <Roxy Bloom PA-C - Last Filed: 04/12/24 16:23> Social History Social History: Social History Smoking status: Unknown if ever smoked Alcohol intake: never Substance use: never Substance use type: does not use Lack of Transportation: No Lack of Food: Never True Current Housing: I Have Housing Concerned About Future Housing: No Difficulty Paying Gas/Electric Bills: No Difficulty Paying for Meds: No Currently Unemployed: YES Education: High School Diploma/GED Living arrangements: with family Occupation/Education: unemployed Gender identity (if verbalized by the patient): Male Sexual Orientation (if Verbalized by the Patient): Straight or Heterosexual Spiritual care concerns: No <Roxy Bloom PA-C - Last Filed: 04/12/24 16:23> Exam 2 Narrative: GENERAL: Well-appearing, morbidly obese, and in no acute distress. Coughing frequently HEAD: Normocephalic, atraumatic. EYES: PERRLA and EOMI.. NECK: Supple. CHEST: Mild wheeze . No respiratory distress. HEART: Regular rate and rhythm. No murmur heard. Normal peripheral pulses. ABDOMEN: Soft, nontender, nondistended, normal active bowel sounds. EXTREMITIES: Normal range of motion. has 2+ edema. SKIN: Warm, dry, no rash. NEURO: No focal deficits. Alert and oriented x3. PSYCH: Normal mood and affect. <Lenin Martinez MD - Last Filed: 04/12/24 18:41> Course Course Emergency Course: Patient upon arrival had a EKG had showed left bundle-branch block with minor ST elevation , did consult Cardiology Dr. Thakkar was here to see the patient he does not think this is STEMI. Patient did receive nebulizer treatment which helped the cough. IV Lasix was given. did inform the pt and his about his lab and chest xray finding agreed with admission. <Lenin Martinez MD - Last Filed: 04/12/24 18:41> Patient upon arrival had a EKG had showed left bundle-branch block with minor ST elevation , did consult Cardiology Dr. Thakkar was here to see the patient he does not think this is STEMI. Patient did receive nebulizer treatment which helped the cough. IV Lasix was given. did inform the pt and his about his lab and chest xray finding agreed with admission. RICHARD: patient signed out pending CTA. Negative for PE. patient admitted. < Jose Alberto Tijerina MD - Last Filed: 04/12/24 18:57> Vital Signs Vital signs: Vital Signs Temperature 97.8 F 04/12/24 15:29 Pulse Rate 88 04/12/24 15:29 Respiratory Rate 26 H 04/12/24 15:29 Blood Pressure 164/118 H 04/12/24 15:29 Pulse Oximetry 95 04/12/24 15:29 Oxygen Delivery Room Air 04/12/24 15:29 Temperature 97.8 F 04/12/24 15:29 Pulse Rate 87 04/12/24 18:51 Respiratory Rate 24 H 04/12/24 18:51 Blood Pressure 162/81 H 04/12/24 18:51 Pulse Oximetry 94 04/12/24 18:51 Oxygen Delivery Room Air 04/12/24 16:57 Fraction of Inspired Oxygen 21 04/12/24 16:57 <Roxy Bloom PA-C - Last Filed: 04/12/24 16:23> Vital Signs Temperature 97.8 F 04/12/24 15:29 Pulse Rate 88 04/12/24 15:29 Respiratory Rate 26 H 04/12/24 15:29 Blood Pressure 164/118 H 04/12/24 15:29 Pulse Oximetry 95 04/12/24 15:29 Oxygen Delivery Room Air 04/12/24 15:29 Temperature 97.8 F 04/12/24 15:29 Pulse Rate 87 04/12/24 18:51 Respiratory Rate 24 H 04/12/24 18:51 Blood Pressure 162/81 H 04/12/24 18:51 Pulse Oximetry 94 04/12/24 18:51 Oxygen Delivery Room Air 04/12/24 16:57 Fraction of Inspired Oxygen 21 04/12/24 16:57 <Lenin Martinez MD - Last Filed: 04/12/24 18:41> Vital Signs Temperature 97.8 F 04/12/24 15:29 Pulse Rate 88 04/12/24 15:29 Respiratory Rate 26 H 04/12/24 15:29 Blood Pressure 164/118 H 04/12/24 15:29 Pulse Oximetry 95 04/12/24 15:29 Oxygen Delivery Room Air 04/12/24 15:29 Temperature 97.8 F 04/12/24 15:29 Pulse Rate 87 04/12/24 18:51 Respiratory Rate 24 H 04/12/24 18:51 Blood Pressure 162/81 H 04/12/24 18:51 Pulse Oximetry 94 04/12/24 18:51 Oxygen Delivery Room Air 04/12/24 16:57 Fraction of Inspired Oxygen 21 04/12/24 16:57 <Jose Alberto Tijerina MD - Last Filed: 04/12/24 18:57> MDM - SOB/Dyspnea MDM Narrative Medical decision making narrative: MSE by CHILANGO in triage. <Roxy Bloom PA-C - Last Filed: 04/12/24 16:23> Differential Diagnosis Differential diagnosis: Likely acute exacerbation of chronic obstructive airways disease, congestive heart failure and asthma with exacerbation <Lenin Martinez MD - Last Filed: 04/12/24 18:41> Medical Records Attestation: I reviewed the patient's medical records. <Lenin Martinez MD - Last Filed: 04/12/24 18:41> Lab Data Attestation: I reviewed the patient's lab results. <Lenin Martinez MD - Last Filed: 04/12/24 18:41> Result diagrams: 04/12/24 15:36 04/12/24 15:36 <Roxy Bloom PA-C - Last Filed: 04/12/24 16:23> Labs: Lab Results 04/12/24 04/12/24 04/12/24 Range/Units 15:36 15:37 15:38 WBC 5.7 (4.5-10.0) K/mm3 RBC 5.02 (4.6-6.20) M/mm3 Hgb 13.1 L (14.0-18.0) g/dL Hct 41.1 L (42.0-52.0) % MCV 81.9 (80-100) fl MCH 26.1 (26-34) pg MCHC 31.9 L (32-36) g/dl RDW 15.8 H (11.5-14.5) % Plt Count 193 (150-375) k/mm3 MPV 11.8 H (7.4-10.4) fl Immature Gran % (Auto) 0.3 (0-0.5) % Neut % (Auto) 69.9 (45.5-73.1) % Lymph % (Auto) 17.8 L (18.3-44.2) % [place] % (Auto) 7.1 (2.6-8.5) % Eos % (Auto) 4.4 (0-4.4) % Baso % (Auto) 0.5 (0.2-1.2) % Lymph # (Auto) 1.02 (0.9-3.2) K/mm3 [place] # (Auto) 0.4 (0.1-0.6) K/mm3 Eos # (Auto) 0.3 (0-0.3) K/mm3 Baso # (Auto) 0.0 (0.0-0.1) K/mm3 Abs Immat Gran (auto) 0.02 (0.00-0.031) K/mm3 Absolute Neuts (auto) 4.0 (1.3-6.7) K/mm3 Absolute Nucleated RBC 0.000 (0.0-0.012) K/mm3 Nucleated RBC % 0.0 (0.0-0.2) % PT 13.9 (11.1-14.7) Seconds INR 1.0 APTT 28.3 (22.3-36.8) Seconds D-Dimer 1.31 H (<0.48) ug/mL Sodium 140 (137-145) mmol/L Potassium 3.4 (3.4-5.0) mmol/L Chloride 108 H (98-107) mmol/L Carbon Dioxide 26 (22-30) mmol/L Anion Gap 6 (4-12) mmol/L BUN 12 (9-20) mg/dL Creatinine 1.30 (0.7-1.3) mg/dL Estim Creat Clear Calc 67 ml/min Estimated GFR > 60 (59 - ) Glucose 163 H (65-110) mg/dL Calcium 8.6 (8.4-10.2) mg/dL Magnesium 1.7 (1.6-2.3) mg/dL Total Bilirubin 0.8 (0.2-1.3) mg/dL AST 25 (17-59) U/L ALT 24 (6-50) U/L Alkaline Phosphatase 96 (38-126) U/L Troponin I 0.049 H* (0.000-0.034) ng/mL NT-Pro-B Natriuret Pep 2660 H (19.9-100) pg/mL Total Protein 7.0 (6.3-8.2) g/dL Albumin 3.8 (3.5-5.1) g/dL Influenza A (RT-PCR) Negative (Negative) Influenza B (RT-PCR) Negative (Negative) RSV (RT-PCR) Negative (Negative) SARS-CoV-2 RNA (RT-PCR) Negative (Negative) 04/12/24 Range/Units 16:32 WBC (4.5-10.0) K/mm3 RBC (4.6-6.20) M/mm3 Hgb (14.0-18.0) g/dL Hct (42.0-52.0) % MCV (80-100) fl MCH (26-34) pg MCHC (32-36) g/dl RDW (11.5-14.5) % Plt Count (150-375) k/mm3 MPV (7.4-10.4) fl Immature Gran % (Auto) (0-0.5) % Neut % (Auto) (45.5-73.1) % Lymph % (Auto) (18.3-44.2) % [place] % (Auto) (2.6-8.5) % Eos % (Auto) (0-4.4) % Baso % (Auto) (0.2-1.2) % Lymph # (Auto) (0.9-3.2) K/mm3 [place] # (Auto) (0.1-0.6) K/mm3 Eos # (Auto) (0-0.3) K/mm3 Baso # (Auto) (0.0-0.1) K/mm3 Abs Immat Gran (auto) (0.00-0.031) K/mm3 Absolute Neuts (auto) (1.3-6.7) K/mm3 Absolute Nucleated RBC (0.0-0.012) K/mm3 Nucleated RBC % (0.0-0.2) % PT (11.1-14.7) Seconds INR APTT (22.3-36.8) Seconds D-Dimer (<0.48) ug/mL Sodium (137-145) mmol/L Potassium (3.4-5.0) mmol/L Chloride (98-107) mmol/L Carbon Dioxide (22-30) mmol/L Anion Gap (4-12) mmol/L BUN (9-20) mg/dL Creatinine (0.7-1.3) mg/dL Estim Creat Clear Calc ml/min Estimated GFR (59 - ) Glucose (65-110) mg/dL Calcium (8.4-10.2) mg/dL Magnesium (1.6-2.3) mg/dL Total Bilirubin (0.2-1.3) mg/dL AST (17-59) U/L ALT (6-50) U/L Alkaline Phosphatase (38-126) U/L Troponin I (0.000-0.034) ng/mL NT-Pro-B Natriuret Pep 2720 H (19.9-100) pg/mL Total Protein (6.3-8.2) g/dL Albumin (3.5-5.1) g/dL Influenza A (RT-PCR) (Negative) Influenza B (RT-PCR) (Negative) RSV (RT-PCR) (Negative) SARS-CoV-2 RNA (RT-PCR) (Negative) <Roxy Bloom PA-C - Last Filed: 04/12/24 16:23> Lab Results 04/12/24 04/12/24 04/12/24 Range/Units 15:36 15:37 15:38 WBC 5.7 (4.5-10.0) K/mm3 RBC 5.02 (4.6-6.20) M/mm3 Hgb 13.1 L (14.0-18.0) g/dL Hct 41.1 L (42.0-52.0) % MCV 81.9 (80-100) fl MCH 26.1 (26-34) pg MCHC 31.9 L (32-36) g/dl RDW 15.8 H (11.5-14.5) % Plt Count 193 (150-375) k/mm3 MPV 11.8 H (7.4-10.4) fl Immature Gran % (Auto) 0.3 (0-0.5) % Neut % (Auto) 69.9 (45.5-73.1) % Lymph % (Auto) 17.8 L (18.3-44.2) % [place] % (Auto) 7.1 (2.6-8.5) % Eos % (Auto) 4.4 (0-4.4) % Baso % (Auto) 0.5 (0.2-1.2) % Lymph # (Auto) 1.02 (0.9-3.2) K/mm3 [place] # (Auto) 0.4 (0.1-0.6) K/mm3 Eos # (Auto) 0.3 (0-0.3) K/mm3 Baso # (Auto) 0.0 (0.0-0.1) K/mm3 Abs Immat Gran (auto) 0.02 (0.00-0.031) K/mm3 Absolute Neuts (auto) 4.0 (1.3-6.7) K/mm3 Absolute Nucleated RBC 0.000 (0.0-0.012) K/mm3 Nucleated RBC % 0.0 (0.0-0.2) % PT 13.9 (11.1-14.7) Seconds INR 1.0 APTT 28.3 (22.3-36.8) Seconds D-Dimer 1.31 H (<0.48) ug/mL Sodium 140 (137-145) mmol/L Potassium 3.4 (3.4-5.0) mmol/L Chloride 108 H (98-107) mmol/L Carbon Dioxide 26 (22-30) mmol/L Anion Gap 6 (4-12) mmol/L BUN 12 (9-20) mg/dL Creatinine 1.30 (0.7-1.3) mg/dL Estim Creat Clear Calc 67 ml/min Estimated GFR > 60 (59 - ) Glucose 163 H (65-110) mg/dL Calcium 8.6 (8.4-10.2) mg/dL Magnesium 1.7 (1.6-2.3) mg/dL Total Bilirubin 0.8 (0.2-1.3) mg/dL AST 25 (17-59) U/L ALT 24 (6-50) U/L Alkaline Phosphatase 96 (38-126) U/L Troponin I 0.049 H* (0.000-0.034) ng/mL NT-Pro-B Natriuret Pep 2660 H (19.9-100) pg/mL Total Protein 7.0 (6.3-8.2) g/dL Albumin 3.8 (3.5-5.1) g/dL Influenza A (RT-PCR) Negative (Negative) Influenza B (RT-PCR) Negative (Negative) RSV (RT-PCR) Negative (Negative) SARS-CoV-2 RNA (RT-PCR) Negative (Negative) 04/12/24 Range/Units 16:32 WBC (4.5-10.0) K/mm3 RBC (4.6-6.20) M/mm3 Hgb (14.0-18.0) g/dL Hct (42.0-52.0) % MCV (80-100) fl MCH (26-34) pg MCHC (32-36) g/dl RDW (11.5-14.5) % Plt Count (150-375) k/mm3 MPV (7.4-10.4) fl Immature Gran % (Auto) (0-0.5) % Neut % (Auto) (45.5-73.1) % Lymph % (Auto) (18.3-44.2) % [place] % (Auto) (2.6-8.5) % Eos % (Auto) (0-4.4) % Baso % (Auto) (0.2-1.2) % Lymph # (Auto) (0.9-3.2) K/mm3 [place] # (Auto) (0.1-0.6) K/mm3 Eos # (Auto) (0-0.3) K/mm3 Baso # (Auto) (0.0-0.1) K/mm3 Abs Immat Gran (auto) (0.00-0.031) K/mm3 Absolute Neuts (auto) (1.3-6.7) K/mm3 Absolute Nucleated RBC (0.0-0.012) K/mm3 Nucleated RBC % (0.0-0.2) % PT (11.1-14.7) Seconds INR APTT (22.3-36.8) Seconds D-Dimer (<0.48) ug/mL Sodium (137-145) mmol/L Potassium (3.4-5.0) mmol/L Chloride (98-107) mmol/L Carbon Dioxide (22-30) mmol/L Anion Gap (4-12) mmol/L BUN (9-20) mg/dL Creatinine (0.7-1.3) mg/dL Estim Creat Clear Calc ml/min Estimated GFR (59 - ) Glucose (65-110) mg/dL Calcium (8.4-10.2) mg/dL Magnesium (1.6-2.3) mg/dL Total Bilirubin (0.2-1.3) mg/dL AST (17-59) U/L ALT (6-50) U/L Alkaline Phosphatase (38-126) U/L Troponin I (0.000-0.034) ng/mL NT-Pro-B Natriuret Pep 2720 H (19.9-100) pg/mL Total Protein (6.3-8.2) g/dL Albumin (3.5-5.1) g/dL Influenza A (RT-PCR) (Negative) Influenza B (RT-PCR) (Negative) RSV (RT-PCR) (Negative) SARS-CoV-2 RNA (RT-PCR) (Negative) <Lenin Martinez MD - Last Filed: 04/12/24 18:41> Lab Results 04/12/24 04/12/24 04/12/24 Range/Units 15:36 15:37 15:38 WBC 5.7 (4.5-10.0) K/mm3 RBC 5.02 (4.6-6.20) M/mm3 Hgb 13.1 L (14.0-18.0) g/dL Hct 41.1 L (42.0-52.0) % MCV 81.9 (80-100) fl MCH 26.1 (26-34) pg MCHC 31.9 L (32-36) g/dl RDW 15.8 H (11.5-14.5) % Plt Count 193 (150-375) k/mm3 MPV 11.8 H (7.4-10.4) fl Immature Gran % (Auto) 0.3 (0-0.5) % Neut % (Auto) 69.9 (45.5-73.1) % Lymph % (Auto) 17.8 L (18.3-44.2) % [place] % (Auto) 7.1 (2.6-8.5) % Eos % (Auto) 4.4 (0-4.4) % Baso % (Auto) 0.5 (0.2-1.2) % Lymph # (Auto) 1.02 (0.9-3.2) K/mm3 [place] # (Auto) 0.4 (0.1-0.6) K/mm3 Eos # (Auto) 0.3 (0-0.3) K/mm3 Baso # (Auto) 0.0 (0.0-0.1) K/mm3 Abs Immat Gran (auto) 0.02 (0.00-0.031) K/mm3 Absolute Neuts (auto) 4.0 (1.3-6.7) K/mm3 Absolute Nucleated RBC 0.000 (0.0-0.012) K/mm3 Nucleated RBC % 0.0 (0.0-0.2) % PT 13.9 (11.1-14.7) Seconds INR 1.0 APTT 28.3 (22.3-36.8) Seconds D-Dimer 1.31 H (<0.48) ug/mL Sodium 140 (137-145) mmol/L Potassium 3.4 (3.4-5.0) mmol/L Chloride 108 H (98-107) mmol/L Carbon Dioxide 26 (22-30) mmol/L Anion Gap 6 (4-12) mmol/L BUN 12 (9-20) mg/dL Creatinine 1.30 (0.7-1.3) mg/dL Estim Creat Clear Calc 67 ml/min Estimated GFR > 60 (59 - ) Glucose 163 H (65-110) mg/dL Calcium 8.6 (8.4-10.2) mg/dL Magnesium 1.7 (1.6-2.3) mg/dL Total Bilirubin 0.8 (0.2-1.3) mg/dL AST 25 (17-59) U/L ALT 24 (6-50) U/L Alkaline Phosphatase 96 (38-126) U/L Troponin I 0.049 H* (0.000-0.034) ng/mL NT-Pro-B Natriuret Pep 2660 H (19.9-100) pg/mL Total Protein 7.0 (6.3-8.2) g/dL Albumin 3.8 (3.5-5.1) g/dL Influenza A (RT-PCR) Negative (Negative) Influenza B (RT-PCR) Negative (Negative) RSV (RT-PCR) Negative (Negative) SARS-CoV-2 RNA (RT-PCR) Negative (Negative) 04/12/24 Range/Units 16:32 WBC (4.5-10.0) K/mm3 RBC (4.6-6.20) M/mm3 Hgb (14.0-18.0) g/dL Hct (42.0-52.0) % MCV (80-100) fl MCH (26-34) pg MCHC (32-36) g/dl RDW (11.5-14.5) % Plt Count (150-375) k/mm3 MPV (7.4-10.4) fl Immature Gran % (Auto) (0-0.5) % Neut % (Auto) (45.5-73.1) % Lymph % (Auto) (18.3-44.2) % [place] % (Auto) (2.6-8.5) % Eos % (Auto) (0-4.4) % Baso % (Auto) (0.2-1.2) % Lymph # (Auto) (0.9-3.2) K/mm3 [place] # (Auto) (0.1-0.6) K/mm3 Eos # (Auto) (0-0.3) K/mm3 Baso # (Auto) (0.0-0.1) K/mm3 Abs Immat Gran (auto) (0.00-0.031) K/mm3 Absolute Neuts (auto) (1.3-6.7) K/mm3 Absolute Nucleated RBC (0.0-0.012) K/mm3 Nucleated RBC % (0.0-0.2) % PT (11.1-14.7) Seconds INR APTT (22.3-36.8) Seconds D-Dimer (<0.48) ug/mL Sodium (137-145) mmol/L Potassium (3.4-5.0) mmol/L Chloride (98-107) mmol/L Carbon Dioxide (22-30) mmol/L Anion Gap (4-12) mmol/L BUN (9-20) mg/dL Creatinine (0.7-1.3) mg/dL Estim Creat Clear Calc ml/min Estimated GFR (59 - ) Glucose (65-110) mg/dL Calcium (8.4-10.2) mg/dL Magnesium (1.6-2.3) mg/dL Total Bilirubin (0.2-1.3) mg/dL AST (17-59) U/L ALT (6-50) U/L Alkaline Phosphatase (38-126) U/L Troponin I (0.000-0.034) ng/mL NT-Pro-B Natriuret Pep 2720 H (19.9-100) pg/mL Total Protein (6.3-8.2) g/dL Albumin (3.5-5.1) g/dL Influenza A (RT-PCR) (Negative) Influenza B (RT-PCR) (Negative) RSV (RT-PCR) (Negative) SARS-CoV-2 RNA (RT-PCR) (Negative) <Jose Alberto Tijerina MD - Last Filed: 04/12/24 18:57> Discharge Plan Discharge Clinical Impression: Acute exacerbation of chronic bronchitis Congestive heart failure Qualifiers: Heart failure type: unspecified Heart failure chronicity: acute on chronic Q ualified Code(s): I50.9 - Heart failure, unspecified <Roxy Bloom PA-C - Last Filed: 04/12/24 16:23> Patient Disposition: Still a Patient <PUMA Gomes Last Filed: 04/12/24 16:23> Condition: Stable <Roxy Bloom PA-C - Last Filed: 04/12/24 16:23> Patient Language: Ukrainian <Roxy Bloom PA-C - Last Filed: 04/12/24 16:23> Prescriptions: No Action Dulera 200-5 mcg/actuation HFA aerosol inhaler 2 puff inhalation BID Spiriva Respimat 2.5 mcg/actuation mist 2 puff inhalation DAILY omeprazole 10 mg capsule,delayed release(DR/EC) 10 mg PO DAILY carvedilol 12.5 mg tablet 12.5 mg PO Q12H Rx Instructions: must administer with a meal/food spironolactone 25 mg tablet 25 mg PO DAILY valsartan 160 mg tablet 160 mg PO BID atorvastatin 80 mg tablet 80 mg PO DAILY Patient Comments: 1/2 tablet daily Victoza 3-José Manuel 0.6 mg/0.1 mL (18 mg/3 mL) pen injector 0.6 mg subcut DAILY famotidine 20 mg tablet 20 mg PO DAILY montelukast 10 mg tablet 10 mg PO DAILY allopurinol 300 mg tablet 300 mg PO DAILY insulin aspart U-100 [Novolog FlexPen U-100 Insulin] 100 unit/mL (3 mL) insulin pen 16 unit subcut TID Qty: 15 0RF insulin glargine 100 unit/mL (3 mL) insulin pen 50 unit subcut DAILY Qty: 15 0RF torsemide 20 mg tablet 20 mg PO .twice daily Qty: 60 0RF albuterol sulfate 2.5 mg /3 mL (0.083 %) solution for nebulization 2.5 mg inhalation Q6H Qty: 90 0RF tamsulosin [Flomax] 0.4 mg capsule 0.4 mg PO HS Qty: 30 0RF indomethacin 50 mg capsule 50 mg PO TID PRN (Reason: pain) Qty: 14 0RF Rx Instructions: administer with food or milk hydrocortisone 2.5 % cream 1 applic topical TID PRN (Reason: itching) Qty: 30 0RF azithromycin 250 mg tablet 250 mg PO DAILY 4 Days Qty: 4 0RF Rx Instructions: start on day 2 of therapy albuterol sulfate 90 mcg/actuation aero powdr breath act w/sensor 1 inh INHALATION Q4-6H PRN (Reason: shortness of breath or wheezing) Qty: 1 0RF <Roxy Bloom PA-C - Last Filed: 04/12/24 16:23> Follow-up/Referrals: Johny,Karri Wheeler MD [Primary Care Provider] - <Roxy Bloom PA-C - Last Filed: 04/12/24 16:23> Time of Disposition: 18:41 <Roxy Bloom PA-C - Last Filed: 04/12/24 16:23> 18:41 <Lenin Martinez MD - Last Filed: 04/12/24 18:41> 18:41 <Jose Alberto Tijerina MD - Last Filed: 04/12/24 18:57>
--- NOTE | 2024-04-12 15:36 | ECG_ITS ---
Test Date: 2024-04-12 16:07:11 Measurements Intervals [place] Rate: 84 P: 43 CA: 154 QRS: 89 QRSD: 157 T: 240 QT: 444 QTc: 526 Interpretive Statements SINUS RHYTHM INTRAVENTRICULAR CONDUCTION DELAY [130+ ms QRS DURATION] No previous ECG available for comparison Electronically Signed On 04-12-2024 17:56:34 [employer] TECHNICIAN by Terrie Eisenberg M.D.
[2024-04-12] MEDS: methylPREDNISolone SOD SUCC 125 MG VIAL IV PUSH (16:14)
[2024-04-12 16:30] LABS: Basophils Percent Auto 0.5 % (0.2-1.2); Eosinophils Absolute Auto 0.3 K/mm3 (0-0.3); Eosinophils Percent Auto 4.4 % (0-4.4); Hematocrit 41.1 % (42.0-52.0); Hemoglobin 13.1 g/dL (14.0-18.0); Immature Granulocyte Absolute 0.02 K/mm3 (0.00-0.031); Immature Granulocyte Percent A 0.3 % (0-0.5); Lymphocytes Absolute Auto 1.02 K/mm3 (0.9-3.2); Lymphocytes Percent Auto 17.8 % (18.3-44.2); Mean Corpuscular HGB Conc 31.9 g/dl (32-36); Mean Corpuscular Hemoglobin 26.1 pg (26-34); Mean Corpuscular Volume 81.9 fl (80-100); Mean Platelet Volume 11.8 fl (7.4-10.4); Monocytes Absolute Auto 0.4 K/mm3 (0.1-0.6); Monocytes Percent Auto 7.1 % (2.6-8.5); Neutrophils Percent Auto 69.9 % (45.5-73.1); Platelet Count Result 193 k/mm3 (150-375); Red Blood Count 5.02 M/mm3 (4.6-6.20); Red Cell Distribution Width 15.8 % (11.5-14.5); White Blood Count 5.7 K/mm3 (4.5-10.0)
[2024-04-12 16:44] LABS: Prothrombin Time 13.9 Seconds (11.1-14.7)
[2024-04-12 16:45] LABS: Partial Thromboplastin Time 28.3 Seconds (22.3-36.8)
[2024-04-12 16:56] LABS: Troponin I 0.049 ng/mL (0.000-0.034)
[2024-04-12 16:57] LABS: NT Pro B Type Natriuretic Pept 2720 pg/mL (19.9-100)
[2024-04-12] MEDS: IPRATROPIUM 0.5 MG/ALBUTEROL SULFATE 2.5 MG AMPUL.NEB 3 ML INHALATION ×2 (16:57→21:05)
[2024-04-12] MEDS: FUROSEMIDE INJ 40 MG/4 ML VIAL IV PUSH ×2 (17:02→21:54)
[2024-04-12 17:10] LABS: Influenza A QL RT-PCR Negative (Negative); Influenza B QL RT-PCR Negative (Negative); RSV RNA, RT-PCR Negative (Negative); SARS-CoV-2 RNA PCR Negative (Negative)
[2024-04-12 17:16] LABS: D Dimer 1.31 ug/mL (<0.48)
[2024-04-12 17:58] LABS: Alanine Aminotransferase 24 U/L (6-50); Albumin Level 3.8 g/dL (3.5-5.1); Alkaline Phosphatase 96 U/L (38-126); Anion Gap 6 mmol/L (4-12); Aspartate Amino Transferase 25 U/L (17-59); Bilirubin,Total 0.8 mg/dL (0.2-1.3); Blood Urea Nitrogen 12 mg/dL (9-20); Calcium 8.6 mg/dL (8.4-10.2); Carbon Dioxide 26 mmol/L (22-30); Chloride 108 mmol/L (98-107); Estimated CRCL calculation 67 ml/min; Estimated Glomerular Filt Rate > 60; Glucose 163 mg/dL (65-110); Magnesium 1.7 mg/dL (1.6-2.3); Potassium 3.4 mmol/L (3.4-5.0); Sodium 140 mmol/L (137-145)
[2024-04-12 18:06] LABS: NT Pro B Type Natriuretic Pept 2660 pg/mL (19.9-100)
--- NOTE | 2024-04-12 18:50 | ECG_ITS ---
Test Date: 2024-04-12 18:58:18 Measurements Intervals [place] Rate: 83 P: 50 RI: 148 QRS: 70 QRSD: 166 T: 171 QT: 461 QTc: 542 Interpretive Statements SINUS RHYTHM LEFT BUNDLE BRANCH BLOCK Compared to ECG 04/12/2024 16:07:11 No significant changes Electronically Signed On 04-13-2024 22:55:17 [employer] TEACHER by Terrie Eisenberg M.D.
[2024-04-12 19:08] LABS: Glucose Point of Care 182 mg/dl (65-105)
--- NOTE | 2024-04-12 19:17 | PC.NURSE ---
Report given to Manny VELASCO, all questions answered
--- NOTE | 2024-04-12 19:30 | P.HP_ITS ---
H&P: HPI History of Present Illness Date/Time: 04/12/24 19:30 Chief Complaint: Shortness of breath. Narrative: This is a 63-year-old male with asthma, coronary artery disease hypertension, hyperlipidemia, insulin dependent diabetes, and benign prostatic hyperplasia who presented to the emergency department via private vehicle with complaints of shortness of breath. The patient provides the following history. He has felt more short of breath with exertion over the last several months however has not yet sought treatment as he has been caring for his at home. It is now to the point where he is short of breath at rest and nebulizers and rescue inhalers are not providing him with longstanding benefit. He also endorses lower extremity edema. He denies fever, chills, sweats, productive cough, chest pain, pleuritic pain, orthopnea, paroxysmal nocturnal dyspnea, nausea, vomiting, and diarrhea. Of note he is currently on azithromycin for a dental infection. In the ED: In triage he appeared tachypneic with an SpO2 of 95% on air. He was afebrile with stable blood pressures. Labs were significant for a WBC count of 5.7, hemoglobin 13.1, D-dimer 1.31, glucose 163, proBNP 2720, troponin 0.049. Chest CTA showed moderate bilateral pleural effusion with adjacent atelectasis versus pneumonia and was negative for pulmonary embolism. A ?large bulge? was seen in the spleen which may indicate a mass with small hypodensities though it appeared stable compared to prior imaging. He received a DuoNeb, methylprednisolone 125 mg IV, and furosemide 40 mg IV and he is being admitted in this setting for further treatment and evaluation. Review of Systems Review of Systems: 12 systems were reviewed and are negativ e except for as per HPI. [facility] Past Medical History Medical History (Updated 04/13/24 @ 05:46 by Leah Cutler PA-C) History of repair of congenital anomaly of heart Type 2 diabetes mellitus Coronary artery disease Gastroesophageal reflux disease Obstructive sleep apnea Benign prostatic disease Congestive heart failure Hyperlipidemia Asthma Hypertension Surgical History Surgical History (Updated 04/13/24 @ 05:46 by Leah Cutler PA-C) History of lithotripsy Family History Family History Father Hypertension Heart disease Social History Social History (Updated 04/12/24 @ 19:33 by Leah Cutler PA-C) Social History: Surrogate medical decision maker: Charlotte Sharifr, spouse. Code status: Full code. Smoking status: Never smoker Alcohol intake: never Substance use: never Substance use type: does not use Do You Feel Safe in your Home?: Yes Lack of Transportation: No Lack of Food: Never True Current Housing: I Do Not Have Housing Concerned About Future Housing: No Difficulty Paying Gas/Electric Bills: No Difficulty Paying for Meds: No Currently Unemployed: No Education: High School Diploma/GED Difficulty w/ Childcare or Family Care: No Living arrangements: with family Occupation/Education: unemployed Spiritual care concerns: No Meds Home Medications and Allergies Home Medications ?Medication ?Instructions ?Recorded ?Confirmed ?Type albuterol sulfate 90 mcg/actuation 1 inh inhalation Q4-6H PRN 06/08/19 04/12/24 Rx breath activated powder shortness of breath or wheezing #1 inhaler,sensor ea tamsulosin 0.4 mg capsule (Flomax) 0.4 mg PO HS #30 caps 10/06/22 04/12/24 Rx albuterol sulfate 2.5 mg/3 mL 2.5 mg (3 mL) inhalation Q6H #90 mL 11/06/22 04/12/24 Rx (0.083 %) solution for nebulization allopurinol 300 mg tablet 300 mg PO DAILY 11/06/22 04/12/24 History atorvastatin 80 mg tablet 80 mg PO DAILY 11/06/22 04/12/24 History carvedilol 12.5 mg tablet 12.5 mg PO Q12H 11/06/22 04/12/24 History famotidine 20 mg tablet 20 mg PO DAILY 11/06/22 04/12/24 History insulin aspart U-100 100 unit/mL 16 unit (0.16 mL) subcut TID #15 mL 11/06/22 04/12/24 Rx (3 mL) subcutaneous pen (Novolog FlexPen U-100 Insulin aspart) insulin glargine 100 unit/mL (3 50 unit (0.5 mL) subcut DAILY #15 11/06/22 04/12/24 Rx mL) subcutaneous pen mL liraglutide 0.6 mg/0.1 mL (18 mg/3 0.6 mg subcut DAILY 11/06/22 04/12/24 History mL) subcutaneous pen injector (Victoza 3-José Manuel) mometasone-formoterol HFA 200 2 puff inhalation BID 11/06/22 04/12/24 History mcg-5 mcg/actuation aerosol inhaler (Dulera) montelukast 10 mg tablet 10 mg PO DAILY 11/06/22 04/12/24 History omeprazole 10 mg capsule,delayed 10 mg PO DAILY 11/06/22 04/12/24 History release spironolactone 25 mg tablet 25 mg PO DAILY 11/06/22 04/12/24 History tiotropium bromide 2.5 2 puff inhalation DAILY 11/06/22 04/12/24 History mcg/actuation mist for inhalation (Spiriva Respimat) torsemide 20 mg tablet 20 mg PO .twice daily #60 tabs 11/06/22 04/12/24 Rx valsartan 160 mg tablet 160 mg PO BID 11/06/22 04/12/24 History hydrocortisone 2.5 % topical cream 1 applic topical TID PRN itching 03/16/23 04/12/24 Rx #30 grams azithromycin 250 mg tablet 250 mg PO DAILY 4 days #4 tabs 05/31/23 04/12/24 Rx Allergies Allergy/AdvReac Type Severity Reaction Status Date / Time No Known Allergies Allergy Verified 04/12/24 16:36 Vital Signs Vital Signs - 24 hr 04/12/24 15:29 04/12/24 16:28 04/12/24 16:28 Temperature 97.8 F Pulse Rate 88 86 Respiratory Rate 26 H Blood Pressure 164/118 H Pulse Oximetry 95 95 Oxygen Delivery Room Air Room Air Fraction of Inspired Oxygen 04/12/24 16:28 04/12/24 16:57 04/12/24 16:57 Temperature Pulse Rate 83 77 Respiratory Rate 23 H 24 H Blood Pressure 171/87 H Pulse Oximetry 95 97 Oxygen Delivery Room Air Fraction of Inspired Oxygen 21 04/12/24 17:03 04/12/24 17:15 04/12/24 18:00 Temperature Pulse Rate 85 76 77 Respiratory Rate 22 H 23 H 24 H Blood Pressure 151/82 H 150/79 H Pulse Oximetry 95 94 Oxygen Delivery Fraction of Inspired Oxygen 04/12/24 18:51 04/12/24 19:03 04/12/24 19:04 Temperature Pulse Rate 87 85 Respiratory Rate 24 H 24 H Blood Pressure 162/81 H 164/84 H Pulse Oximetry 94 97 99 Oxygen Delivery Room Air Fraction of Inspired Oxygen Exam Narrative: General: Well-developed, nontoxic-appearing male in the semi-Alexandre position in bed in no distress. Weight: 124.1 kg. BMI: 41.6. HEENT: PERRL, EOMI. Sclera anicteric. Oral mucosa moist. Crowded oropharynx. Neck: Supple. Exam limited due to neck circumference. Respiratory: Respirations are nonlabored and he is speaking in full sentences. Lung sounds are diminished at the bases with scattered crackles. Occasional expiratory wheezes. Cardiovascular: Regular rate and rhythm with S1-S2. Gastrointestinal: Abdomen is soft, obese, nontender, and nondistended with positive bowel sounds. Skin: Warm and dry. No rash or lesions on limited exam. Extremities: No cyanosis or clubbing. Bilateral lower extremity pitting edema. No palpable knots or cords. Neurological: Alert. Cranial nerves 2-12 are grossly intact. No gross focal deficits to casual conversation. Psychiatric: Pleasant and cooperative with normal mood and affect. Judgment and insight intact. H&P: Results Labs Labs: Short CBC 04/12/24 Range/Units 15:36 WBC 5.7 (4.5-10.0) K/mm3 Hgb 13.1 L (14.0-18.0) g/dL Hct 41.1 L (42.0-52.0) % Plt Count 193 (150-375) k/mm3 BMP 04/12/24 15:36 Sodium 140 Potassium 3.4 Chloride 108 H Carbon Dioxide 26 BUN 12 Creatinine 1.30 Glucose 163 H Calcium 8.6 Cardiac Enzymes 04/12/24 Range/Units 15:37 Troponin I 0.049 H* (0.000-0.034) ng/mL Liver Function 04/12/24 Range/Units 15:36 Total Bilirubin 0.8 (0.2-1.3) mg/dL AST 25 (17-59) U/L ALT 24 (6-50) U/L Alkaline Phosphatase 96 (38-126) U/L Albumin 3.8 (3.5-5.1) g/dL Impressions Chest X-Ray 04/12/24 16:59 IMPRESSION: 1. Mild pulmonary edema. 2. Small pleural effusions. 3. Cardiomegaly. Chest CTA 04/12/24 18:40 IMPRESSION: 1. No pulmonary embolism. 2. Bilateral moderate pleural effusion with adjacent atelectasis versus pneumonia. 3. Large bulge seen in the spleen unchanged from previous examination. Further evaluation advised to exclude a mass. Abscess or hematoma is less likely although cannot be excluded. Assessment and Plan Assessment and plan (1) CHF exacerbation: Code(s): I50.9 - Heart failure, unspecified Status: Acute (2) Asthma: Code(s): J45.909 - Unspecified asthma, uncomplicated Status: Acute (3) Coronary artery disease: Code(s): I25.10 - Atherosclerotic heart disease of [place] coronary artery without angina pectoris Status: Acute (4) Hypertension: Code(s): I10 - Essential (primary) hypertension Status: Acute (5) Splenic cyst: Code(s): D73.4 - Cyst of spleen Status: Acute (6) Type 2 diabetes mellitus: Code(s): E11.9 - Type 2 diabetes mellitus without complications Status: Acute Plan The patient presented to the emergency department for evaluation of shortness of breath as detailed in HPI. Labs, imaging, EKG, and all reports were personally reviewed. Symptoms have been ongoing for couple of months but worse most recently. CT scan shows bilateral pleural effusions which are likely the cause of a shortness of breath in addition to asthma. He will be diuresed with close monitoring of volume status, renal function, and electrolytes. I am not certain diuresis will completely take care of the problem and he may need thoracentesis depending on his course. He is wheezing as well and we will continue with scheduled bronchodilators and steroids as well. No indication for antibiotics at this time. Troponin is mildly elevated and will be trended. He does have a history of coronary artery disease but is not complaining of any chest pain whatsoever. Monitor on telemetry. Echocardiogram ordered. Initiate sliding scale insulin, Accu-Cheks, and hypoglycemic protocol. Check hemoglobin A1c. Ultrasound ordered to evaluate ?large bulge? seen in the spleen, previously thought to be related to cysts. His home medications will be reviewed and resumed as appropriate. Findings and treatment plan were discussed with the patient. Questions were solicited and answered to satisfaction. The patient's medical management will be taken over by the hospitalist team in a.m. Quality VTE Prophylaxis VTE prophylaxis: pharmacologic ordered Hospitalist MIPS Advance Care Plan I have confirmed that the patient's Advanced Care Plan is present, code status is documented, or surrogate decision maker is listed in patient medical record.: Yes Medication Reconciliation I have utilized all available resources to obtain, update and review the patients current medications (includes all prescriptions, OTC, herbals, cannabis, and nutritional supplements).: Yes
[2024-04-12 19:45] LABS: Troponin I 0.044 ng/mL (0.000-0.034)
[2024-04-12] MEDS: IPRATROPIUM BR 0.02% INH SOLN 0.5 MG/2.5 ML VIAL INHALATION (21:06)
[2024-04-12] MEDS: INSULIN ASPART (*BKC) 100 UNITS/ML SUB-Q (21:57)
[2024-04-12 21:58] LABS: Glucose Point of Care 223 mg/dl (65-105)
--- NOTE | 2024-04-12 22:33 | ADMGEN ---
This patient, Desmond Mcclelland, was admitted to 2 Medical Room 240-01. Patient/family oriented to hospital policies and general routines including ID bracelet, bed and alarms, visiting hours, pain management, procedures, bathroom and other care routines, personal items, smoking policy, room service/diet, and visiting hours. Information on how to activate the Rapid Response Team has been discussed. Patient/Family are encouraged to report perceived risks to care and to ask questions if they do not understand what they are told or what they should do.
[2024-04-12 22:44] LABS: Glucose Point of Care 246 mg/dl (65-105)
[2024-04-13] VITALS (23 sets, daily range): BP systolic 142–165; BP diastolic 62–98; PULSE 77–99; RESP 18–25; TEMP 36.4–36.7; O2SAT 92–98
[2024-04-13 00:40] LABS: Glucose Point of Care 306 mg/dl (65-105)
[2024-04-13 01:08] LABS: Hemoglobin A1C 7.6 % (<5.7)
[2024-04-13] MEDS: IPRATROPIUM 0.5 MG/ALBUTEROL SULFATE 2.5 MG AMPUL.NEB 3 ML INHALATION ×2 (01:30→07:39)
[2024-04-13] MEDS: IPRATROPIUM BR 0.02% INH SOLN 0.5 MG/2.5 ML VIAL INHALATION ×3 (01:31→21:51)
[2024-04-13 04:40] LABS: Glucose Point of Care 311 mg/dl (65-105)
[2024-04-13 04:40] LABS: Glucose Point of Care 339 mg/dl (65-105)
[2024-04-13 06:26] LABS: Hematocrit 41.2 % (42.0-52.0); Mean Corpuscular HGB Conc 31.6 g/dl (32-36); Mean Corpuscular Hemoglobin 25.7 pg (26-34); Mean Corpuscular Volume 81.6 fl (80-100); Mean Platelet Volume 12.3 fl (7.4-10.4); Platelet Count Result 196 k/mm3 (150-375); Red Blood Count 5.05 M/mm3 (4.6-6.20); Red Cell Distribution Width 15.6 % (11.5-14.5); White Blood Count 7.4 K/mm3 (4.5-10.0)
[2024-04-13 06:39] LABS: Anion Gap 8 mmol/L (4-12); Blood Urea Nitrogen 17 mg/dL (9-20); Calcium 8.7 mg/dL (8.4-10.2); Carbon Dioxide 26 mmol/L (22-30); Chloride 102 mmol/L (98-107); Estimated CRCL calculation 68 ml/min; Estimated Glomerular Filt Rate > 60; Glucose 273 mg/dL (65-110); Magnesium 1.7 mg/dL (1.6-2.3); Potassium 3.3 mmol/L (3.4-5.0); Sodium 136 mmol/L (137-145)
[2024-04-13 07:09] LABS: Thyroid Stimulating Hormone Reflex 0.708 uIU/mL (0.465-4.68)
[2024-04-13] MEDS: FLUTICASONE/SALMETEROL 230-21 MCG INHALER 1 PUFF 2 PUFF INHALATION ×2 (07:45→21:52)
--- NOTE | 2024-04-13 07:51 | P.PNIM_ITS ---
Progress Note: A&P Assessment and Plan (1) CHF exacerbation: Code(s): I50.9 - Heart failure, unspecified Status: Acute (2) Asthma: Code(s): J45.909 - Unspecified asthma, uncomplicated Status: Acute (3) Coronary artery disease: Code(s): I25.10 - Atherosclerotic heart disease of [place] coronary artery without angina pectoris Status: Acute (4) Hypertension: Code(s): I10 - Essential (primary) hypertension Status: Acute (5) Splenic cyst: Code(s): D73.4 - Cyst of spleen Status: Acute (6) Type 2 diabetes mellitus: Code(s): E11.9 - Type 2 diabetes mellitus without complications Status: Acute Plan The patient presented to the emergency department for evaluation of shortness of breath and wheezing Labs, imaging, EKG, and all reports were reviewed. Symptoms have been ongoing for couple of months but worse most recently. CT scan shows bilateral pleural effusions which are likely the cause of a shortness of breath in addition to asthma. - He will be diuresed with close monitoring of volume status, renal function, and electrolytes. He may need thoracentesis depending on his course. he has scheduled bronchodilators and steroids as well. No indication for antibiotics at this time. Troponin is mildly elevated and will be trended. He does have a history of coronary artery disease but is not complaining of any chest pain. Monitor on telemetry. Echocardiogram ordered. Initiate sliding scale insulin, Accu-Cheks, and hypoglycemic protocol. Check hemoglobin A1c. Ultrasound ordered to evaluate ?large bulge? seen in the spleen, previously thought to be related to cysts. Time Spent With Patient Time with patient: Greater than 35 minutes Subjective Date/time seen: 04/13/24 07:51 Interval history: This is a 63-year-old male with asthma, coronary artery disease hypertension, hyperlipidemia, insulin dependent diabetes, and benign prostatic hyperplasia who presented to the emergency department via private vehicle with complaints of shortness of breath. The patient provides the following history. He has felt mor e short of breath with exertion over the last several months however has not yet sought treatment as he has been caring for his at home. It is now to the point where he is short of breath at rest and nebulizers and rescue inhalers are not providing him with longstanding benefit. He also endorses lower extremity edema. He denies fever, chills, sweats, productive cough, chest pain, pleuritic pain, orthopnea, paroxysmal nocturnal dyspnea, nausea, vomiting, and diarrhea. Of note he is currently on azithromycin for a dental infection. In the ED: In triage he appeared tachypneic with an SpO2 of 95% on air. He was afebrile with stable blood pressures. Labs were significant for a WBC count of 5.7, hemoglobin 13.1, D-dimer 1.31, glucose 163, proBNP 2720, troponin 0.049. Chest CTA showed moderate bilateral pleural effusion with adjacent atelectasis versus pneumonia and was negative for pulmonary embolism. A ?large bulge? was seen in the spleen which may indicate a mass with small hypodensities though it appeared stable compared to prior imaging. He received a DuoNeb, methylprednisolone 125 mg IV, and furosemide 40 mg IV and he is being admitted in this setting for further treatment and evaluation. Pt is seen and examined this am. he is on prednisone , duonebs, card consulted. Review of Systems Review of Systems: 12 systems were reviewed and are negativ e except for as per HPI. Exam Narrative: General: Well-developed, nontoxic-appearing male in the semi-Alexandre position in bed in no distress. Weight: 124.1 kg. BMI: 41.6. HEENT: PERRL, EOMI. Sclera anicteric. Oral mucosa moist. Crowded oropharynx. Neck: Supple. Exam limited due to neck circumference. Respiratory: Respirations are nonlabored and he is speaking in full sentences. Lung sounds are diminished at the bases with scattered crackles. Occasional expiratory wheezes. Cardiovascular: Regular rate and rhythm with S1-S2. Gastrointestinal: Abdomen is soft, obese, nontender, and nondistended with positive bowel sounds. Skin: Warm and dry. No rash or lesions on limited exam. Extremities: No cyanosis or clubbing. Bilateral lower extremity pitting edema. No palpable knots or cords. Neurological: Alert. Cranial nerves 2-12 are grossly intact. No gross focal deficits to casual conversation. Psychiatric: Pleasant and cooperative with normal mood and affect. Judgment and insight intact. Objective Data Vital Signs Vital Signs: Vital Signs - 24 hr 04/12/24 15:29 04/12/24 16:28 04/12/24 16:28 Temperature 97.8 F Pulse Rate 88 86 Respiratory Rate 26 H Blood Pressure 164/118 H Pulse Oximetry 95 95 Oxygen Delivery Room Air Room Air Fraction of Inspired Oxygen 04/12/24 16:28 04/12/24 16:57 04/12/24 16:57 Temperature Pulse Rate 83 77 Respiratory Rate 23 H 24 H Blood Pressure 171/87 H Pulse Oximetry 95 97 Oxygen Delivery Room Air Fraction of Inspired Oxygen 21 04/12/24 17:03 04/12/24 17:15 04/12/24 18:00 Temperature Pulse Rate 85 76 77 Respiratory Rate 22 H 23 H 24 H Blood Pressure 151/82 H 150/79 H Pulse Oximetry 95 94 Oxygen Delivery Fraction of Inspired Oxygen 04/12/24 18:51 04/12/24 19:03 04/12/24 19:04 Temperature Pulse Rate 87 85 Respiratory Rate 24 H 24 H Blood Pressure 162/81 H 164/84 H Pulse Oximetry 94 97 99 Oxygen Delivery Room Air Fraction of Inspired Oxygen 04/12/24 20:00 04/12/24 21:09 04/12/24 21:18 Temperature 98 F Pulse Rate 91 84 80 Respiratory Rate 20 24 H 22 H Blood Pressure 149/56 H Pulse Oximetry 96 Oxygen Delivery Fraction of Inspired Oxygen 04/12/24 22:00 04/12/24 22:08 04/12/24 23:32 Temperature 98.0 F Pulse Rate 91 84 Respiratory Rate 20 16 Blood Pressure 149/56 H 170/86 H Pulse Oximetry 96 98 Oxygen Delivery Room Air Fraction of Inspired Oxygen 04/13/24 00:00 04/13/24 00:00 04/13/24 01:32 Temperature 97.7 F Pulse Rate 97 96 80 Respiratory Rate 20 20 Blood Pressure 160/80 H Pulse Oximetry 94 Oxygen Delivery Fraction of Inspired Oxygen 04/13/24 01:42 04/13/24 02:01 04/13/24 03:27 Temperature 97.7 F Pulse Rate 84 90 84 Respiratory Rate 20 25 H 20 Blood Pressure 165/62 H Pulse Oximetry 93 92 Oxygen Delivery Autopap Fraction of Inspired Oxygen 04/13/24 03:31 04/13/24 04:00 04/13/24 07:40 Temperature 97.7 F Pulse Rate 84 87 Respiratory Rate 20 Blood Pressure 165/62 H Pulse Oximetry 92 95 Oxygen Delivery Room Air Fraction of Inspired Oxygen 04/13/24 07:40 Temperature Pulse Rate 85 Respiratory Rate 20 Blood Pressure Pulse Oximetry Oxygen Delivery Fraction of Inspired Oxygen Intake/Output Intake/Output: Intake & Output 04/10/24 04/11/24 04/12/24 04/13/24 23:59 23:59 23:59 23:59 Intake Total 980 Output Total 480 Balance -480 980 Meds/Results Medications: Active Medications Generic Name Dose Route Start Last Admin Trade Name Freq PRN Reason Stop Dose Admin Acetaminophen 650 mg 04/12/24 18:42 Acetaminophen 325 Mg Tablet PO Q4H PRN Mild Pain (1-3) or Fever Albuterol 1 puff 04/13/24 00:16 Albuterol Sulfate (*Sp) Aerosol 1 Puff INHALATION Q4-6H PRN shortness of breath or wheezin Albuterol/Ipratropium 3 ml 04/12/24 20:00 04/13/24 07:39 Ipratropium 0.5 Mg/Albuterol Sulfate 2.5 Mg Ampul.Neb 3 Ml INHALATION 3 ml Q6HRT ARIAN Administration Allopurinol 300 mg 04/13/24 09:00 Allopurinol 300 Mg Tablet PO DAILY [facility] Atorvastatin Calcium 80 mg 04/13/24 09:00 Atorvastatin 40 Mg Tablet PO DAILY [facility] Azithromycin 250 mg 04/13/24 09:00 Azithromycin 250 Mg Tablet PO DAILY [facility] Carvedilol 12.5 mg 04/13/24 09:00 Carvedilol 12.5 Mg Tablet PO Q12HR [facility] Dextrose 12.5 gm 04/12/24 18:42 Dextrose 50% 25 Gm/50 Ml Syringe IV PUSH PRN PRN Hypoglycemia Protocol Dextrose 12.5 gm 04/12/24 20:42 Dextrose 50% 25 Gm/50 Ml Syringe IV PUSH PRN PRN Hypoglycemia Protocol Enoxaparin Sodium 40 mg 04/13/24 09:00 Enoxaparin 40 Mg/0.4 Ml Syringe SUB-Q DAILY [facility] Famotidine 20 mg 04/13/24 09:00 Famotidine 20 Mg Tablet PO DAILY [facility] Furosemide 40 mg 04/12/24 21:00 04/12/24 21:54 Furosemide Inj 40 Mg/4 Ml Vial IV PUSH 40 mg Q12HR ARIAN Administration Glucagon 1 mg 04/12/24 18:42 Glucagon For Inj 1 Mg Vial IM PRN PRN Hypoglycemia Protocol Glucagon 1 mg 04/12/24 20:42 Glucagon For Inj 1 Mg Vial IM PRN PRN Hypoglycemia Protocol Glucose 15 gm 04/12/24 18:42 Glucose Oral Gel 15 Gm Of Glucse In 37.5 Gm Tube PO PRN PRN Hypoglycemia Protocol Glucose 15 gm 04/12/24 20:42 Glucose Oral Gel 15 Gm Of Glucse In 37.5 Gm Tube PO PRN PRN Hypoglycemia Protocol Hydrocortisone 1 applic 04/12/24 23:28 Hydrocortisone 2.5% Cream 30 Gm Tube TOPICAL TID PRN itching Dextrose 1,000 mls @ 100 mls/hr 04/12/24 20:42 Dextrose 5% 1,000 Ml IVPB PRN PRN Hypoglycemia Protocol Insulin Aspart 3 - 6 units 04/13/24 08:00 Insulin Aspart (*Bkc) 100 Units/Ml SUB-Q TIDWM ARIAN Protocol Insulin Aspart 1 - 3 units 04/12/24 21:00 04/12/24 21:57 Insulin Aspart (*Bkc) 100 Units/Ml SUB-Q 1 units HS ARIAN Administration Protocol Insulin Aspart 16 units 04/13/24 09:00 Insulin Aspart (*Bkc) 100 Units/Ml SUB-Q TID [facility]AN Insulin Glargine 40 units 04/13/24 09:00 Insulin Glargine (*Bkc) 100 Units/Ml SUB-Q DAILY [facility] Ipratropium [place] 0.5 mg 04/12/24 20:00 04/13/24 07:42 Ipratropium Br 0.02% Inh Soln 0.5 Mg/2.5 Ml Vial INHALATION Not Given Q6HRT ARIAN Miscellaneous Information 0 each 04/13/24 00:01 Azithromycin Please Clarify Pt Still Taking External Med Record Show Filled ?? XX 05/13/24 00:00 CLARIFY ARIAN Montelukast Sodium 10 mg 04/13/24 09:00 Montelukast Sodium 10 Mg Tablet PO DAILY [facility] Ondansetron HCl 4 mg 04/12/24 18:42 Ondansetron Inj 4 Mg/2 Ml Vial IV PUSH Q4H PRN Nausea Pantoprazole Sodium 20 mg 04/13/24 09:00 Pantoprazole Sod Sesquihydrate 20 Mg Tab PO DAILY [facility] Perflutren Lipid Microsphere 0 ml 04/12/24 20:41 Perflutren Lipid Microspheres 1.5 Ml Vial Diluted To 10 Ml Total Volume IV PUSH 04/15/24 20:41 ONCE PRN adequate visualization Protocol Prednisone 40 mg 04/13/24 08:00 Prednisone 20 Mg Tablet PO 04/17/24 07:59 DAILY@0800 [facility] Fluticasone/Salmeterol 2 puff 04/13/24 08:00 04/13/24 07:45 Fluticasone/Salmeterol 230-21 Mcg Inhaler 1 Puff INHALATION 2 puff Q12HRT [facility] Administration Spironolactone 25 mg 04/13/24 09:00 Spironolactone 25 Mg Tablet PO DAILY [facility] Tamsulosin HCl 0.4 mg 04/13/24 21:00 Tamsulosin Hcl 0.4 Mg Capsule PO HS [facility] Valsartan 160 mg 04/13/24 09:00 Valsartan 160 Mg Tablet PO BID [facility] Radiology Results: ITS Impressions Chest X-Ray 04/12/24 16:59 IMPRESSION: 1. Mild pulmonary edema. 2. Small pleural effusions. 3. Cardiomegaly. Chest CTA 04/12/24 18:40 IMPRESSION: 1. No pulmonary embolism. 2. Bilateral moderate pleural effusion with adjacent atelectasis versus pne umonia. 3. Large bulge seen in the spleen unchanged from previous examination. Further evaluation advised to exclude a mass. Abscess or hematoma is less likely although cannot be excluded. Labs Labs: Laboratory Results - last 24 hr 04/12/24 04/12/24 04/12/24 15:36 15:37 15:38 WBC 5.7 RBC 5.02 Hgb 13.1 L Hct 41.1 L MCV 81.9 MCH 26.1 MCHC 31.9 L RDW 15.8 H Plt Count 193 MPV 11.8 H Immature Gran % (Auto) 0.3 Neut % (Auto) 69.9 Lymph % (Auto) 17.8 L [place] % (Auto) 7.1 Eos % (Auto) 4.4 Baso % (Auto) 0.5 Lymph # (Auto) 1.02 [place] # (Auto) 0.4 Eos # (Auto) 0.3 Baso # (Auto) 0.0 Abs Immat Gran (auto) 0.02 Absolute Neuts (auto) 4.0 Absolute Nucleated RBC 0.000 Nucleated RBC % 0.0 PT 13.9 INR 1.0 APTT 28.3 D-Dimer 1.31 H Sodium 140 Potassium 3.4 Chloride 108 H Carbon Dioxide 26 Anion Gap 6 BUN 12 Creatinine 1.30 Estim Creat Clear Calc 67 Estimated GFR > 60 Glucose 163 H POC Capillary Glucose Hemoglobin A1c 7.6 H Calcium 8.6 Magnesium 1.7 Total Bilirubin 0.8 AST 25 ALT 24 Alkaline Phosphatase 96 Troponin I 0.049 H* NT-Pro-B Natriuret Pep 2660 H Total Protein 7.0 Albumin 3.8 TSH (Reflex) Influenza A (RT-PCR) Negative Influenza B (RT-PCR) Negative RSV (RT-PCR) Negative SARS-CoV-2 RNA (RT-PCR) Negative 04/12/24 04/12/24 04/12/24 16:32 19:02 21:56 WBC RBC Hgb Hct MCV MCH MCHC RDW Plt Count MPV Immature Gran % (Auto) Neut % (Auto) Lymph % (Auto) [place] % (Auto) Eos % (Auto) Baso % (Auto) Lymph # (Auto) [place] # (Auto) Eos # (Auto) Baso # (Auto) Abs Immat Gran (auto) Absolute Neuts (auto) Absolute Nucleated RBC Nucleated RBC % PT INR APTT D-Dimer Sodium Potassium Chloride Carbon Dioxide Anion Gap BUN Creatinine Estim Creat Clear Calc Estimated GFR Glucose POC Capillary Glucose 182 H 223 H Hemoglobin A1c Calcium Magnesium Total Bilirubin AST ALT Alkaline Phosphatase Troponin I 0.044 H* NT-Pro-B Natriuret Pep 2720 H Total Protein Albumin TSH (Reflex) Influenza A (RT-PCR) Influenza B (RT-PCR) RSV (RT-PCR) SARS-CoV-2 RNA (RT-PCR) 04/12/24 04/13/24 04/13/24 22:36 00:08 03:34 WBC RBC Hgb Hct MCV MCH MCHC RDW Plt Count MPV Immature Gran % (Auto) Neut % (Auto) Lymph % (Auto) [place] % (Auto) Eos % (Auto) Baso % (Auto) Lymph # (Auto) [place] # (Auto) Eos # (Auto) Baso # (Auto) Abs Immat Gran (auto) Absolute Neuts (auto) Absolute Nucleated RBC Nucleated RBC % PT INR APTT D-Dimer Sodium Potassium Chloride Carbon Dioxide Anion Gap BUN Creatinine Estim Creat Clear Calc Estimated GFR Glucose POC Capillary Glucose 246 H 306 H 311 H Hemoglobin A1c Calcium Magnesium Total Bilirubin AST ALT Alkaline Phosphatase Troponin I NT-Pro-B Natriuret Pep Total Protein Albumin TSH (Reflex) Influenza A (RT-PCR) Influenza B (RT-PCR) RSV (RT-PCR) SARS-CoV-2 RNA (RT-PCR) 04/13/24 04/13/24 03:35 05:54 WBC 7.4 RBC 5.05 Hgb 13.0 L Hct 41.2 L MCV 81.6 MCH 25.7 L MCHC 31.6 L RDW 15.6 H Plt Count 196 MPV 12.3 H Immature Gran % (Auto) Neut % (Auto) Lymph % (Auto) [place] % (Auto) Eos % (Auto) Baso % (Auto) Lymph # (Auto) [place] # (Auto) Eos # (Auto) Baso # (Auto) Abs Immat Gran (auto) Absolute Neuts (auto) Absolute Nucleated RBC Nucleated RBC % PT INR APTT D-Dimer Sodium 136 L Potassium 3.3 L Chloride 102 Carbon Dioxide 26 Anion Gap 8 BUN 17 Creatinine 1.30 Estim Creat Clear Calc 68 Estimated GFR > 60 Glucose 273 H POC Capillary Glucose 339 H Hemoglobin A1c Calcium 8.7 Magnesium 1.7 Total Bilirubin AST ALT Alkaline Phosphatase Troponin I NT-Pro-B Natriuret Pep Total Protein Albumin TSH (Reflex) 0.708 Influenza A (RT-PCR) Influenza B (RT-PCR) RSV (RT-PCR) SARS-CoV-2 RNA (RT-PCR) Quality VTE Prophylaxis VTE prophylaxis: pharmacologic ordered
[2024-04-13 08:36] LABS: Glucose Point of Care 244 mg/dl (65-105)
[2024-04-13] MEDS: PANTOPRAZOLE SOD SESQUIHYDRATE 20 MG TAB PO (08:43)
[2024-04-13] MEDS: predniSONE 20 MG TABLET 40 MG PO (08:43)
[2024-04-13] MEDS: allopurinoL 300 MG TABLET PO (08:43)
[2024-04-13] MEDS: ATORVASTATIN 40 MG TABLET 80 MG PO (08:43)
[2024-04-13] MEDS: VALSARTAN 160 MG TABLET PO ×2 (08:43→17:10)
[2024-04-13] MEDS: MONTELUKAST SODIUM 10 MG TABLET PO (08:43)
[2024-04-13] MEDS: FAMOTIDINE 20 MG TABLET PO (08:44)
[2024-04-13] MEDS: carvediloL 12.5 MG TABLET PO ×2 (08:44→20:07)
[2024-04-13] MEDS: SPIRONOLACTONE 25 MG TABLET PO (08:45)
[2024-04-13] MEDS: INSULIN GLARGINE (*BKC) 100 UNITS/ML 40 UNITS SUB-Q (08:46)
[2024-04-13] MEDS: INSULIN ASPART (*BKC) 100 UNITS/ML 16 UNITS SUB-Q ×3 (08:47→17:09)
[2024-04-13] MEDS: INSULIN ASPART (*BKC) 100 UNITS/ML SUB-Q (08:47)
[2024-04-13] MEDS: ENOXAPARIN 40 MG/0.4 ML SYRINGE SUB-Q (08:49)
[2024-04-13] MEDS: POTASSIUM CHLORIDE 20 MEQ PACKET (FOR LIQUID) 40 MEQ PO (08:59)
[2024-04-13] MEDS: FUROSEMIDE INJ 40 MG/4 ML VIAL IV PUSH ×3 (09:00→20:07)
[2024-04-13] MEDS: metOLazone 5 MG TABLET PO (11:30)
[2024-04-13] MEDS: AZITHROMYCIN 250 MG TABLET PO (11:31)
[2024-04-13 12:32] LABS: Glucose Point of Care 186 mg/dl (65-105)
--- NOTE | 2024-04-13 12:51 | PM.CNCAR ---
History of Present Illness History of Present Illness Consult date/time: 04/13/24 12:51 Reason For Visit: chf Narrative: in error Review of Systems Review of Systems: 12 systems were reviewed and are negative except for as per HPI. [facility] Past Medical History Medical History (Updated 04/13/24 @ 05:46 by Leah Cutler PA-C) History of repair of congenital anomaly of heart Type 2 diabetes mellitus Coronary artery disease Gastroesophageal reflux disease Obstructive sleep apnea Benign prostatic disease Congestive heart failure Hyperlipidemia Asthma Hypertension Surgical History Surgical History (Updated 04/13/24 @ 05:46 by Leah Cutler PA-C) History of lithotripsy Family History Family History Father Hypertension Heart disease Social History Social History (Updated 04/12/24 @ 19:33 by Leah Cutler PA-C) Social History: Surrogate medical decision maker: Charlotte Mcclelland, spouse. Code status: Full code. Smoking status: Never smoker Alcohol intake: never Substance use: never Substance use type: does not use Do You Feel Safe in your Home?: Yes Lack of Transportation: No Lack of Food: Never True Current Housing: I Do Not Have Housing Concerned About Future Housing: No Difficulty Paying Gas/Electric Bills: No Difficulty Paying for Meds: No Currently Unemployed: No Education: High School Diploma/GED Difficulty w/ Childcare or Family Care: No Living arrangements: with family Occupation/Education: unemployed Spiritual care concerns: No Meds Home Medications and Allergies Home Medications ?Medication ?Instructions ?Recorded ?Confirmed ?Type albuterol sulfate 90 mcg/actuation 1 inh inhalation Q4-6H PRN 06/08/19 04/12/24 Rx breath activated powder shortness of breath or wheezing #1 inhaler,sensor ea tamsulosin 0.4 mg capsule (Flomax) 0.4 mg PO HS #30 caps 10/06/22 04/12/24 Rx albuterol sulfate 2.5 mg/3 mL 2.5 mg (3 mL) inhalation Q6H #90 mL 11/06/22 04/12/24 Rx (0.083 %) solution for nebulization allopurinol 300 mg tablet 300 mg PO DAILY 11/06/22 04/12/24 History atorvastatin 80 mg tablet 80 mg PO DAILY 11/06/22 04/12/24 History carvedilol 12.5 mg tablet 12.5 mg PO Q12H 11/06/22 04/12/24 History famotidine 20 mg tablet 20 mg PO DAILY 11/06/22 04/12/24 History insulin aspart U-100 100 unit/mL 16 unit (0.16 mL) subcut TID #15 mL 11/06/22 04/12/24 Rx (3 mL) subcutaneous pen (Novolog FlexPen U-100 Insulin aspart) insulin glargine 100 unit/mL (3 50 unit (0.5 mL) subcut DAILY #15 11/06/22 04/12/24 Rx mL) subcutaneous pen mL liraglutide 0.6 mg/0.1 mL (18 mg/3 0.6 mg subcut DAILY 11/06/22 04/12/24 History mL) subcutaneous pen injector ([employer] 3-José Manuel) mometasone-formoterol HFA 200 2 puff inhalation BID 11/06/22 04/12/24 History mcg-5 mcg/actuation aerosol inhaler (Dulera) montelukast 10 mg tablet 10 mg PO DAILY 11/06/22 04/12/24 History omeprazole 10 mg capsule,delayed 10 mg PO DAILY 11/06/22 04/12/24 History release spironolactone 25 mg tablet 25 mg PO DAILY 11/06/22 04/12/24 History tiotropium bromide 2.5 2 puff inhalation DAILY 11/06/22 04/12/24 History mcg/actuation mist for inhalation (Spiriva Respimat) torsemide 20 mg tablet 20 mg PO .twice daily #60 tabs 11/06/22 04/12/24 Rx valsartan 160 mg tablet 160 mg PO BID 11/06/22 04/12/24 History hydrocortisone 2.5 % topical cream 1 applic topical TID PRN itching 03/16/23 04/12/24 Rx #30 grams azithromycin 250 mg tablet 250 mg PO DAILY 4 days #4 tabs 05/31/23 04/12/24 Rx Allergies Allergy/AdvReac Type Severity Reaction Status Date / Time No Known Allergies Allergy Verified 04/12/24 16:36 Vital Signs Vital Signs - 24 hr 04/12/24 15:29 04/12/24 16:28 04/12/24 16:28 Temperature 36.6 C Pulse Rate 88 86 Respiratory Rate 26 H Blood Pressure 164/118 H Pulse Oximetry 95 95 Oxygen Delivery Room Air Room Air Fraction of Inspired Oxygen 04/12/24 16:28 04/12/24 16:57 04/12/24 16:57 Temperature Pulse Rate 83 77 Respiratory Rate 23 H 24 H Blood Pressure 171/87 H Pulse Oximetry 95 97 Oxygen Delivery Room Air Fraction of Inspired Oxygen 21 04/12/24 17:03 04/12/24 17:15 04/12/24 18:00 Temperature Pulse Rate 85 76 77 Respiratory Rate 22 H 23 H 24 H Blood Pressure 151/82 H 150/79 H Pulse Oximetry 95 94 Oxygen Delivery Fraction of Inspired Oxygen 04/12/24 18:51 04/12/24 19:03 04/12/24 19:04 Temperature Pulse Rate 87 85 Respiratory Rate 24 H 24 H Blood Pressure 162/81 H 164/84 H Pulse Oximetry 94 97 99 Oxygen Delivery Room Air Fraction of Inspired Oxygen 04/12/24 20:00 04/12/24 21:09 04/12/24 21:18 Temperature 36.6 C Pulse Rate 91 84 80 Respiratory Rate 20 24 H 22 H Blood Pressure 149/56 H Pulse Oximetry 96 Oxygen Delivery Fraction of Inspired Oxygen 04/12/24 22:00 04/12/24 22:08 04/12/24 23:32 Temperature 36.7 C Pulse Rate 91 84 Respiratory Rate 20 16 Blood Pressure 149/56 H 170/86 H Pulse Oximetry 96 98 Oxygen Delivery Room Air Fraction of Inspired Oxygen 04/13/24 00:00 04/13/24 00:00 04/13/24 01:32 Temperature 36.5 C Pulse Rate 97 96 80 Respiratory Rate 20 20 Blood Pressure 160/80 H Pulse Oximetry 94 Oxygen Delivery Fraction of Inspired Oxygen 04/13/24 01:42 04/13/24 02:01 04/13/24 03:27 Temperature 36.5 C Pulse Rate 84 90 84 Respiratory Rate 20 25 H 20 Blood Pressure 165/62 H Pulse Oximetry 93 92 Oxygen Delivery Autopap Fraction of Inspired Oxygen 04/13/24 03:31 04/13/24 04:00 04/13/24 07:40 Temperature 36.5 C Pulse Rate 84 87 Respiratory Rate 20 Blood Pressure 165/62 H Pulse Oximetry 92 95 Oxygen Delivery Room Air Fraction of Inspired Oxygen 04/13/24 07:40 04/13/24 07:46 04/13/24 08:00 Temperature Pulse Rate 85 85 88 Respiratory Rate 20 20 Blood Pressure Pulse Oximetry Oxygen Delivery Fraction of Inspired Oxygen 04/13/24 09:46 04/13/24 12:00 Temperature 36.7 C Pulse Rate 87 83 Respiratory Rate 18 Blood Pressure 152/67 H Pulse Oximetry 98 Oxygen Delivery Fraction of Inspired Oxygen Results Labs and Meds 04/14/24 09:29 04/14/24 09:29 Lab results: Cardiac Enzymes 04/12/24 04/12/24 04/12/24 Range/Units 15:36 15:37 19:02 AST 25 (17-59) U/L Troponin I 0.049 H* 0.044 H* (0.000-0.034) ng/mL Coagulation 04/12/24 Range/Units 15:36 PT 13.9 (11.1-14.7) Seconds APTT 28.3 (22.3-36.8) Seconds CBC 04/12/24 04/13/24 Range/Units 15:36 05:54 WBC 5.7 7.4 (4.5-10.0) K/mm3 RBC 5.02 5.05 (4.6-6.20) M/mm3 Hgb 13.1 L 13.0 L (14.0-18.0) g/dL Hct 41.1 L 41.2 L (42.0-52.0) % Plt Count 193 196 (150-375) k/mm3 Lymph # (Auto) 1.02 (0.9-3.2) K/mm3 [place] # (Auto) 0.4 (0.1-0.6) K/mm3 Eos # (Auto) 0.3 (0-0.3) K/mm3 Baso # (Auto) 0.0 (0.0-0.1) K/mm3 Comprehensive Metabolic Panel 04/12/24 04/13/24 Range/Units 15:36 05:54 Sodium 140 136 L (137-145) mmol/L Potassium 3.4 3.3 L (3.4-5.0) mmol/L Chloride 108 H 102 (98-107) mmol/L Carbon Dioxide 26 26 (22-30) mmol/L BUN 12 17 (9-20) mg/dL Creatinine 1.30 1.30 (0.7-1.3) mg/dL Glucose 163 H 273 H (65-110) mg/dL Calcium 8.6 8.7 (8.4-10.2) mg/dL AST 25 (17-59) U/L ALT 24 (6-50) U/L Alkaline Phosphatase 96 (38-126) U/L Total Protein 7.0 (6.3-8.2) g/dL Albumin 3.8 (3.5-5.1) g/dL Intake and Output 04/12/24 04/13/24 04/13/24 23:59 07:59 15:59 Intake Total 980 940 Output Total 480 250 Balance -480 980 690 Intake: Oral 980 940 Output: Urine 480 250 Other: # Unmeasured Voids 4 # Incontinent Voids 4 Patient Weight 04/13/24 23:59 Weight 124.1 kg
[2024-04-13] MEDS: ASPIRIN 81 MG ENTERIC TABLET PO (13:44)
[2024-04-13 17:05] LABS: Glucose Point of Care 196 mg/dl (65-105)
[2024-04-13] MEDS: TAMSULOSIN HCL 0.4 MG CAPSULE PO (20:07)
--- NOTE | 2024-04-13 20:41 | ECHO_ITS ---
Patient Info Name: Desmond Mcclelland Age: 63 years : 1960 Gender: Male Ht: 68 in Wt: 273 lbs BSA: 2.50 m2 HR: 84 bpm BP: 165 / 62 mmHg Technical Quality: Good Exam Date: 04/13/2024 2:51 PM Exam Location: Echo Lab Patient Status: Inpatient Admit Date: 04/13/2024 Staff Ordering Physician: Leah Cutler PA-C [employer] Artist: Candelaria Calero RDCS Attending Provider: Maximo Nieves MD Referring Physician: Omayra STAFFORD; Exam Type: CA echo doppler color flow Study Info Complete two-dimensional, color flow and Doppler transthoracic echocardiogram is performed. Summary 1. Complete two-dimensional, color flow and Doppler transthoracic echocardiogram is performed. 2. Left ventricular chamber dimension is enlarged. 3. Left ventricular systolic function is severely reduced, estimated at 25-30%. 4. There is no increased left ventricular wall thickness. 5. Left ventricular wall motion shows global hypokinesis. 6. The left ventricular diastolic function is grade III diastolic dysfunction. 7. Right ventricular chamber dimension is enlarged. 8. Right ventricular systolic function is reduced. 9. Left atrial chamber dimension is enlarged. 10. There is no aortic valve stenosis. 11. Dilated inferior vena cava with <50% collapse upon inspiration consistent with elevated right atrial pressure, 15 mmHg. 12. There is mild tricuspid valve regurgitation. 13. Mild pulmonary hypertension, estimated pulmonary arterial systolic pressure is 65 mmHg. Left Ventricle Left ventricular chamber dimension is enlarged. Left ventricular systolic function is severely reduced, estimated at 25-30%. There is no increased left ventricular wall thickness. Left ventricular wall motion shows global hypokinesis. The left ventricular diastolic function is grade III diastolic dysfunction. Right Ventricle Right ventricular chamber dimension is enlarged. Right ventricular systolic function is reduced. Left Atria Left atrial chamber dimension is enlarged. Right Atria Right atrial chamber dimension is enlarged. Aortic Valve The aortic valve is trileaflet. There is mild aortic valve sclerosis. There is no aortic valve stenosis. There is no aortic valve regurgitation. Pulmonic Valve The pulmonic valve is normal. There is mild pulmonic regurgitation. Mitral Valve The mitral valve has normal leaflets. There is no mitral valve stenosis. There is trace mitral valve regurgitation. Tricuspid Valve The tricuspid valve leaflets are normal. There is mild tricuspid valve regurgitation. Mild pulmonary hypertension, estimated pulmonary arterial systolic pressure is 65 mmHg. Pericardium/Pleural The pericardium appears epicardial fat pad. There is no pericardial effusion. Inferior Vena Cava Dilated inferior vena cava with <50% collapse upon inspiration consistent with elevated right atrial pressure, 15 mmHg. Aorta The aortic root size at the sinus of Valsalva is normal. The prox ascending aorta size is normal. Left Ventricular Outflow Tract Name Value Normal LVOT 2D LVOT Diameter 1.9 cm LVOT Doppler LVOT Peak Gradient 3 mmHg LVOT Mean Gradient 2 mmHg LVOT VTI 14 cm LVOT VTI/AV VTI Ratio 0.8 LVOT Stroke Volume 42 ml LVOT CO 3.6 l/min LVOT CI 1.5 l/min/m2 Pulmonic Valve Name Value Normal PV Doppler PV Peak Gradient 3 mmHg PV Regurgitation Doppler [place] Peak End Diastolic Velocity 138 cm/s Mitral Valve Name Value Normal MV Doppler MV Peak Gradient 4 mmHg MV Mean Gradient 1 mmHg MV Decel [place] 1,272 cm/s2 MV PHT 28 ms MV Area (PHT) 7.8 cm2 4.0-5.0 MV Area (Cont Eq VTI) 2.8 cm2 MV Diastolic Function MV E Peak Velocity 123 cm/s MV A Peak Velocity 31 cm/s MV E/A 3.9 MV Decel Time 97 ms MV Annular TDI MV E/e' (Septal) 24.1 <=8.0 MV E/e' (Lateral) 14.8 <=8.0 MV E/e' (Average) 19.4 Tricuspid Valve Name Value Normal TV Regurgitation Doppler TR Peak Velocity 353 cm/s TR Peak Gradient 50 mmHg Estimated PAP/RSVP RA Pressure 15 mmHg <=5 PA Systolic Pressure 65 mmHg <36 RV Systolic Pressure 65 mmHg <36 Aortic Valve Name Value Normal AV Doppler AV Peak Velocity 105 cm/s AV Peak Gradient 4 mmHg AV Mean Gradient 2 mmHg AV VTI 18 cm AV Area (Cont Eq VTI) 2.4 cm2 >=3.0 AV Area (Cont Eq Benitez) 2.6 cm2 AV Regurgitation 2D LVOT Area 3.0 cm2 Ventricles Name Value Normal LV Dimensions 2D/MM IVS Diastolic Thickness (2D) 0.9 cm 0.6-1.0 LVID Diastole (2D) 6.4 cm 4.2-5.8 LVIW Diastolic Thickness (2D) 1.0 cm 0.6-1.0 LVID Systole (2D) 5.7 cm 2.5-4.0 LVOT Diameter 1.9 cm LV Mass (2D Cubed) 257.73 g 88.00-224.00 LV Mass Index (2D Cubed) 103 g/m2 49-115 Relative Wall Thickness (2D) 0.31 LV Fractional Shortening/Ejection Fraction 2D/MM LV Fractional Shortening (2D) 12 % 25-43 LV EF (2D Teicholz) 26 % 52-72 LV Diastolic Volume (4C MOD) 191 ml LV EF (4C MOD) 13 % LV Diastolic Length (4C) 9.9 cm LV Systolic Length (4C) 9.1 cm LV Stroke Volume (4C MOD) 24 ml Atria Name Value Normal LA Dimensions LA Volume (4C A-L) 97 ml RA Dimensions RA Area (4C) 20.0 cm2 <=18.0 Report Signatures
[2024-04-13 21:54] LABS: Troponin I 0.049 ng/mL (0.000-0.034)
[2024-04-14] VITALS (24 sets, daily range): BP systolic 110–144; BP diastolic 58–90; PULSE 66–85; RESP 18–22; TEMP 36–36.9; O2SAT 93–100
[2024-04-14] MEDS: IPRATROPIUM BR 0.02% INH SOLN 0.5 MG/2.5 ML VIAL INHALATION ×4 (02:08→21:06)
[2024-04-14 02:53] LABS: Glucose Point of Care 190 mg/dl (65-105)
[2024-04-14] MEDS: FLUTICASONE/SALMETEROL 230-21 MCG INHALER 1 PUFF 2 PUFF INHALATION ×2 (07:32→21:06)
[2024-04-14 07:37] LABS: Glucose Point of Care 112 mg/dl (65-105)
--- NOTE | 2024-04-14 08:28 | PM.IMPN ---
Progress Note: A&P Assessment and Plan (1) CHF exacerbation: Code(s): I50.9 - Heart failure, unspecified Status: Acute Assessment and Plan: The patient presented to the emergency department for evaluation of shortness of breath and wheezing Labs, imaging, EKG, and all reports were reviewed. Symptoms have been ongoing for couple of months but worse most recently. CT scan shows bilateral pleural effusions which are likely the cause of a shortness of breath in addition to asthma. cardiology consulted, notes reviewed: He has a history of open heart surgery, details of which are not known. he denies any CABG done during that time - It is my clinical impression that he has decompensated HF and the troponin elevation is secondary to type 2 NE - No need for heparin infusion - Echo to assess LV systolic function and wall motion - Will continue to diureses him; one dose of 5 mg Metolazone today, continue IV diuresis - Monitor and optimize anti-hypertensives - Start ASA 81; continue statin, and BB Troponin is mildly elevated and will be trended. He does have a history of coronary artery disease but is not complaining of any chest pain. Monitor on telemetry. Echocardiogram ordered. - will decrease lasix to daily from BID as kidney function worsen (2) Asthma: Code(s): J45.909 - Unspecified asthma, uncomplicated Status: Acute Assessment and Plan: He may need thoracentesis depending on his course. he has scheduled bronchodilators and steroids as well. No indication for antibiotics at this time. continue to monitor resp status (3) Coronary artery disease: Code(s): I25.10 - Atherosclerotic heart disease of tejon coronary artery without angina pectoris Status: Acute (4) Hypertension: Code(s): I10 - Essential (primary) hypertension Status: Acute (5) Splenic cyst: Code(s): D73.4 - Cyst of spleen Status: Acute Assessment and Plan: Ultrasound ordered to evaluate ?large bulge? seen in the spleen, previously thought to be related to cysts. ultrasound: Diffuse fatty infiltration of liver. 10.4 x 9.4 x 9.9 cm predominantly echogenic, solid splenic mass. This could reflect large splenic hemangioma. Further evaluation with pre and postcontrast MRI should be considered. (6) Type 2 diabetes mellitus: Code(s): E11.9 - Type 2 diabetes mellitus without complications Status: Acute Assessment and Plan: Initiate sliding scale insulin, Accu-Cheks, and hypoglycemic protocol. Time Spent With Patient Time with patient: Greater than 35 minutes Subjective Date/time seen: 04/14/24 08:28 Interval history: This is a 63-year-old male with asthma, coronary artery disease hypertension, hyperlipidemia, insulin dependent diabetes, and benign prostatic hyperplasia who presented to the emergency department via private vehicle with complaints of shortness of breath. The patient provides the following history. He has felt more short of breath with exertion over the last several months however has not yet sought treatment as he has been caring for his at home. It is now to the point where he is short of breath at rest and nebulizers and rescue inhalers are not providing him with longstanding benefit. He also endorses lower extremity edema. He denies fever, chills, sweats, productive cough, chest pain, pleuritic pain, orthopnea, paroxysmal nocturnal dyspnea, nausea, vomiting, and diarrhea. Of note he is currently on azithromycin for a dental infection. In the ED: In triage he appeared tachypneic with an SpO2 of 95% on air. He was afebrile with stable blood pressures. Labs were significant for a WBC count of 5.7, hemoglobin 13.1, D-dimer 1.31, glucose 163, proBNP 2720, troponin 0.049. Chest CTA showed moderate bilateral pleural effusion with adjacent atelectasis versus pneumonia and was negative for pulmonary embolism. A ?large bulge? was seen in the spleen which may indicate a mass with small hypodensities though it appeared stable compared to prior imaging. He received a DuoNeb, methylprednisolone 125 mg IV, and furosemide 40 mg IV and he is being admitted in this setting for further treatment and evaluation. 04/14- Pt is seen and examined. vs reviewed. Trop still elevated. no chest pain. cardiology saw him yesterday. K low- will order replacement Review of Systems Review of Systems: 12 systems were reviewed and are negative except for as per HPI. Exam Narrative: General: Well-developed, nontoxic-appearing male in the semi-Alexandre position in bed in no distress. Weight: 124.1 kg. BMI: 41.6. HEENT: PERRL, EOMI. Sclera anicteric. Oral mucosa moist. Crowded oropharynx. Neck: Supple. Exam limited due to neck circumference. Respiratory: Respirations are nonlabored and he is speaking in full sentences. Lung sounds are diminished at the bases with scattered crackles. Occasional expiratory wheezes. Cardiovascular: Regular rate and rhythm with S1-S2. Gastrointestinal: Abdomen is soft, obese, nontender, and nondistended with positive bowel sounds. Skin: Warm and dry. No rash or lesions on limited exam. Extremities: No cyanosis or clubbing. Bilateral lower extremity pitting edema. No palpable knots or cords. Neurological: Alert. Cranial nerves 2-12 are grossly intact. No gross focal deficits to casual conversation. Psychiatric: Pleasant and cooperative with normal mood and affect. Judgment and insight intact. Objective Data Vital Signs Vital Signs: Vital Signs - 24 hr 04/13/24 09:46 04/13/24 12:00 04/13/24 14:30 Temperature 98.1 F Pulse Rate 87 83 77 Respiratory Rate 18 20 Blood Pressure 152/67 H Pulse Oximetry 98 95 Oxygen Delivery Room Air Fraction of Inspired Oxygen 04/13/24 14:30 04/13/24 14:40 04/13/24 15:45 Temperature 97.6 F Pulse Rate 77 86 87 Respiratory Rate 20 20 18 Blood Pressure 144/85 H Pulse Oximetry 98 Oxygen Delivery Fraction of Inspired Oxygen 04/13/24 16:00 04/13/24 20:00 04/13/24 20:00 Temperature 97.7 F Pulse Rate 80 79 Respiratory Rate 20 Blood Pressure 142/98 H Pulse Oximetry 95 Oxygen Delivery Room Air Fraction of Inspired Oxygen 04/13/24 20:00 04/13/24 20:07 04/13/24 21:23 Temperature 97.7 F Pulse Rate 99 85 79 Respiratory Rate 20 Blood Pressure 142/98 H Pulse Oximetry 95 Oxygen Delivery Fraction of Inspired Oxygen 04/13/24 21:40 04/13/24 21:50 04/13/24 22:01 Temperature Pulse Rate 85 86 Respiratory Rate 20 20 Blood Pressure Pulse Oximetry 95 Oxygen Delivery Fraction of Inspired Oxygen 04/13/24 22:22 04/14/24 00:00 04/14/24 00:00 Temperature 97.7 F Pulse Rate 77 74 74 Respiratory Rate 22 H 20 Blood Pressure 137/84 Pulse Oximetry 96 100 Oxygen Delivery Autopap Fraction of Inspired Oxygen 04/14/24 02:09 04/14/24 02:21 04/14/24 03:23 Temperature 97.7 F Pulse Rate 75 70 79 Respiratory Rate 20 20 20 Blood Pressure 140/90 Pulse Oximetry 93 Oxygen Delivery Fraction of Inspired Oxygen 04/14/24 03:26 04/14/24 04:00 04/14/24 07:30 Temperature 97.7 F Pulse Rate 79 76 Respiratory Rate 20 Blood Pressure 140/90 Pulse Oximetry 93 94 Oxygen Delivery Room Air Fraction of Inspired Oxygen 21 04/14/24 07:30 04/14/24 07:41 Temperature Pulse Rate 83 85 Respiratory Rate 20 20 Blood Pressure Pulse Oximetry Oxygen Delivery Fraction of Inspired Oxygen Intake/Output Intake/Output: Intake & Output 04/11/24 04/12/24 04/13/24 04/14/24 23:59 23:59 23:59 23:59 Intake Total 3050 390 Output Total 480 1325 400 Balance -480 1725 -10 Meds/Results Medications: Active Medications Generic Name Dose Route Start Last Admin Trade Name Freq PRN Reason Stop Dose Admin Acetaminophen 650 mg 04/12/24 18:42 Acetaminophen 325 Mg Tablet PO Q4H PRN Mild Pain (1-3) or Fever Albuterol 1 puff 04/13/24 00:16 Albuterol Sulfate (*Sp) Aerosol 1 Puff INHALATION Q4-6H PRN shortness of breath or wheezin Albuterol/Ipratropium 3 ml 04/13/24 12:39 Ipratropium 0.5 Mg/Albuterol Sulfate 2.5 Mg Ampul.Neb 3 Ml NEBULIZE Q6HRT PRN Shortness Of Breath Or Wheezing Allopurinol 300 mg 04/13/24 09:00 04/13/24 08:43 Allopurinol 300 Mg Tablet PO 300 mg DAILY ARIAN Administration Aspirin 81 mg 04/13/24 13:25 04/13/24 13:44 Aspirin 81 Mg Enteric Tablet PO 81 mg QAM ARIAN Administration Atorvastatin Calcium 80 mg 04/13/24 09:00 04/13/24 08:43 Atorvastatin 40 Mg Tablet PO 80 mg DAILY ARIAN Administration Azithromycin 250 mg 04/13/24 09:00 04/13/24 11:31 Azithromycin 250 Mg Tablet PO 04/15/24 09:01 250 mg DAILY ARIAN Administration Carvedilol 12.5 mg 04/13/24 09:00 04/13/24 20:07 Carvedilol 12.5 Mg Tablet PO 12.5 mg Q12HR ARIAN Administration Dextrose 12.5 gm 04/12/24 18:42 Dextrose 50% 25 Gm/50 Ml Syringe IV PUSH PRN PRN Hypoglycemia Protocol Dextrose 12.5 gm 04/12/24 20:42 Dextrose 50% 25 Gm/50 Ml Syringe IV PUSH PRN PRN Hypoglycemia Protocol Enoxaparin Sodium 40 mg 04/13/24 09:00 04/13/24 08:49 Enoxaparin 40 Mg/0.4 Ml Syringe SUB-Q 40 mg DAILY ARIAN Administration Famotidine 20 mg 04/13/24 09:00 04/13/24 08:44 Famotidine 20 Mg Tablet PO 20 mg DAILY ARIAN Administration Furosemide 40 mg 04/12/24 21:00 04/13/24 20:07 Furosemide Inj 40 Mg/4 Ml Vial IV PUSH 40 mg Q12HR ARIAN Administration Glucagon 1 mg 04/12/24 18:42 Glucagon For Inj 1 Mg Vial IM PRN PRN Hypoglycemia Protocol Glucagon 1 mg 04/12/24 20:42 Glucagon For Inj 1 Mg Vial IM PRN PRN Hypoglycemia Protocol Glucose 15 gm 04/12/24 18:42 Glucose Oral Gel 15 Gm Of Glucse In 37.5 Gm Tube PO PRN PRN Hypoglycemia Protocol Glucose 15 gm 04/12/24 20:42 Glucose Oral Gel 15 Gm Of Glucse In 37.5 Gm Tube PO PRN PRN Hypoglycemia Protocol Hydrocortisone 1 applic 04/12/24 23:28 Hydrocortisone 2.5% Cream 30 Gm Tube TOPICAL TID PRN itching Dextrose 1,000 mls @ 100 mls/hr 04/12/24 20:42 Dextrose 5% 1,000 Ml IVPB PRN PRN Hypoglycemia Protocol Insulin Aspart 3 - 6 units 04/13/24 08:00 04/14/24 08:04 Insulin Aspart (*Bkc) 100 Units/Ml SUB-Q Not Given [facility] Protocol Insulin Aspart 1 - 3 units 04/12/24 21:00 04/13/24 22:39 Insulin Aspart (*Bkc) 100 Units/Ml SUB-Q Not Given HS ARIAN Protocol Insulin Aspart 16 units 04/13/24 09:00 04/14/24 08:07 Insulin Aspart (*Bkc) 100 Units/Ml SUB-Q Not Given TID ARIAN Insulin Glargine 40 units 04/13/24 09:00 04/13/24 08:46 Insulin Glargine (*Bkc) 100 Units/Ml SUB-Q 40 units DAILY ARIAN Administration Ipratropium [place] 0.5 mg 04/12/24 20:00 04/14/24 07:30 Ipratropium Br 0.02% Inh Soln 0.5 Mg/2.5 Ml Vial INHALATION 0.5 mg Q6HRT ARIAN Administration Montelukast Sodium 10 mg 04/13/24 09:00 04/13/24 08:43 Montelukast Sodium 10 Mg Tablet PO 10 mg DAILY ARIAN Administration Ondansetron HCl 4 mg 04/12/24 18:42 Ondansetron Inj 4 Mg/2 Ml Vial IV PUSH Q4H PRN Nausea Pantoprazole Sodium 20 mg 04/13/24 09:00 04/13/24 08:43 Pantoprazole Sod Sesquihydrate 20 Mg Tab PO 20 mg DAILY ARIAN Administration Perflutren Lipid Microsphere 0 ml 04/12/24 20:41 Perflutren Lipid Microspheres 1.5 Ml Vial Diluted To 10 Ml Total Volume IV PUSH 04/15/24 20:41 ONCE PRN adequate visualization Protocol Polyethylene Glycol 17 gm 04/13/24 13:38 Polyethylene Glycol 3350 17 Gm Powd.Pack PO QAM PRN Constipation Potassium Chloride 40 meq 04/13/24 09:00 04/13/24 08:59 Potassium Chloride 20 Meq Packet (For Liquid) PO 04/16/24 09:00 40 meq DAILY ARIAN Administration Prednisone 40 mg 04/13/24 08:00 04/13/24 08:43 Prednisone 20 Mg Tablet PO 04/17/24 07:59 40 mg DAILY@0800 ARIAN Administration Fluticasone/Salmeterol 2 puff 04/13/24 08:00 04/14/24 07:32 Fluticasone/Salmeterol 230-21 Mcg Inhaler 1 Puff INHALATION 2 puff Q12HRT ARIAN Administration Spironolactone 25 mg 04/13/24 09:00 04/13/24 08:45 Spironolactone 25 Mg Tablet PO 25 mg DAILY ARIAN Administration Tamsulosin HCl 0.4 mg 04/13/24 21:00 04/13/24 20:07 Tamsulosin Hcl 0.4 Mg Capsule PO 0.4 mg HS ARIAN Administration Valsartan 160 mg 04/13/24 09:00 04/13/24 17:10 Valsartan 160 Mg Tablet PO 160 mg BID ARIAN Administration Radiology Results: ITS Impressions Chest X-Ray 04/12/24 16:59 IMPRESSION: 1. Mild pulmonary edema. 2. Small pleural effusions. 3. Cardiomegaly. Chest CTA 04/12/24 18:40 IMPRESSION: 1. No pulmonary embolism. 2. Bilateral moderate pleural effusion with adjacent atelectasis versus pneumonia. 3. Large bulge seen in the spleen unchanged from previous examination. Further evaluation advised to exclude a mass. Abscess or hematoma is less likely although cannot be excluded. Abdomen Ultrasound 04/13/24 08:08 Impression: Diffuse fatty infiltration of liver. 10.4 x 9.4 x 9.9 cm predominantly echogenic, solid splenic mass. This could reflect large splenic hemangioma. Further evaluation with pre and postcontrast MRI should be considered. Labs Labs: Laboratory Results - last 24 hr 04/13/24 04/13/24 04/13/24 08:33 12:29 17:00 POC Capillary Glucose 244 H 186 H 196 H Troponin I 04/13/24 04/13/24 04/14/24 21:19 21:23 07:35 POC Capillary Glucose 190 H 112 H Troponin I 0.049 H* Quality VTE Prophylaxis VTE prophylaxis: pharmacologic ordered
[2024-04-14] MEDS: allopurinoL 300 MG TABLET PO (08:55)
[2024-04-14] MEDS: ASPIRIN 81 MG ENTERIC TABLET PO (08:55)
[2024-04-14] MEDS: ATORVASTATIN 40 MG TABLET 80 MG PO (08:56)
[2024-04-14] MEDS: AZITHROMYCIN 250 MG TABLET PO (08:56)
[2024-04-14] MEDS: carvediloL 12.5 MG TABLET PO ×2 (08:57→10:02)
[2024-04-14] MEDS: FAMOTIDINE 20 MG TABLET PO (08:57)
[2024-04-14] MEDS: MONTELUKAST SODIUM 10 MG TABLET PO (08:58)
[2024-04-14] MEDS: PANTOPRAZOLE SOD SESQUIHYDRATE 20 MG TAB PO (08:58)
[2024-04-14] MEDS: predniSONE 20 MG TABLET 40 MG PO (08:59)
[2024-04-14] MEDS: SPIRONOLACTONE 25 MG TABLET PO (08:59)
[2024-04-14] MEDS: VALSARTAN 160 MG TABLET PO ×2 (08:59→17:10)
[2024-04-14] MEDS: POTASSIUM CHLORIDE 20 MEQ PACKET (FOR LIQUID) 40 MEQ PO (09:00)
[2024-04-14] MEDS: ENOXAPARIN 40 MG/0.4 ML SYRINGE SUB-Q (09:00)
[2024-04-14] MEDS: FUROSEMIDE INJ 40 MG/4 ML VIAL IV PUSH (09:00)
[2024-04-14] MEDS: INSULIN GLARGINE (*BKC) 100 UNITS/ML 40 UNITS SUB-Q (09:01)
[2024-04-14 09:56] LABS: Hemoglobin 12.9 g/dL (14.0-18.0); Mean Corpuscular HGB Conc 32.3 g/dl (32-36); Mean Corpuscular Volume 80.6 fl (80-100); Mean Platelet Volume 11.6 fl (7.4-10.4); Platelet Count Result 180 k/mm3 (150-375); Red Blood Count 4.96 M/mm3 (4.6-6.20); Red Cell Distribution Width 15.8 % (11.5-14.5); White Blood Count 8.2 K/mm3 (4.5-10.0)
[2024-04-14 10:17] LABS: Anion Gap 4 mmol/L (4-12); Blood Urea Nitrogen 24 mg/dL (9-20); Carbon Dioxide 30 mmol/L (22-30); Chloride 102 mmol/L (98-107); Potassium 3.1 mmol/L (3.4-5.0); Sodium 136 mmol/L (137-145)
[2024-04-14 10:18] LABS: Calcium 9.3 mg/dL (8.4-10.2); Estimated CRCL calculation 57 ml/min; Estimated Glomerular Filt Rate 53; Glucose 148 mg/dL (65-110)
[2024-04-14] MEDS: KCL 20 MEQ/SW 100 ML 100 ML 50 MEQ IVPB (11:22)
[2024-04-14 11:43] LABS: Glucose Point of Care 185 mg/dl (65-105)
[2024-04-14] MEDS: INSULIN ASPART (*BKC) 100 UNITS/ML 16 UNITS SUB-Q ×2 (12:55→17:11)
[2024-04-14] MEDS: POTASSIUM CHLORIDE 20 MEQ ER TABLET 40 MEQ PO (12:55)
--- NOTE | 2024-04-14 14:54 | PM.PNCARD ---
Progress Note: A&P Assessment and Plan (1) CHF exacerbation: Code(s): I50.9 - Heart failure, unspecified Status: Acute Assessment and Plan: 1. Acute on chronic CHF NYHA II-III, stage C EF 25-30% Etiology not known 2. History of open heart surgery 3. Type 2 IA 4. Hypertension 5. Hyperlipidemia -his received metolazone yesterday had a good urine output, however his intake is high. Total input should be around 0017-0951 mL -continue IV diuresis -continue aspirin, statin -up titrate his beta-bee -continue spironolactone and valsartan -will need cardiac catheterization to assess his coronary anatomy (2) Asthma: Code(s): J45.909 - Unspecified asthma, uncomplicated Status: Acute Assessment and Plan: He may need thoracentesis depending on his course. he has scheduled bronchodilators and steroids as well. No indication for antibiotics at this time. continue to monitor resp status (3) Coronary artery disease: Code(s): I25.10 - Atherosclerotic heart disease of [place] coronary artery without angina pectoris Status: Acute (4) Hypertension: Code(s): I10 - Essential (primary) hypertension Status: Acute (5) Splenic cyst: Code(s): D73.4 - Cyst of spleen Status: Acute Assessment and Plan: Ultrasound ordered to evaluate ?large bulge? seen in the spleen, previously thought to be related to cysts. ultrasound: Diffuse fatty infiltration of liver. 10.4 x 9.4 x 9.9 cm predominantly echogenic, solid splenic mass. This could reflect large splenic hemangioma. Further evaluation with pre and postcontrast MRI should be considered. (6) Type 2 diabetes mellitus: Code(s): E11.9 - Type 2 diabetes mellitus without complications Status: Acute Assessment and Plan: Initiate sliding scale insulin, Accu-Cheks, and hypoglycemic protocol. Subjective Date/time seen: 04/14/24 14:54 Interval history: This is a 63-year-old male with asthma, coronary artery disease hypertension, hyperlipidemia, insulin dependent diabetes, and benign prostatic hyperplasia who presented to the emergency department via private vehicle with complaints of worsening dyspnea. He came in today on the insistence of his . Denies any chest pain. Does endorse lower extremity swelling. Denies any orthopnea, PND Had an open heart surgery in 2000 no bypass grafting done at that time. ED called STEMI based on his EKG review of his EKG it was suggestive of a left bundle branch block. Troponin has been flat He has been diuresing well TTE done shows EF 25-30%, PASP 65 mm Hg Review of Systems Review of Systems: 12 systems were reviewed and are negative except for as per HPI. All systems reviewed & are unremarkable except as noted in HPI and below Constitutional: Constitutional: Reports no additional constitutional complaints Eyes: Eyes: Reports no additional eye complaints ENT: Reports system reviewed and no additional complaints, except as documented Cardiovascular: Cardiovascular: Reports no additional cardiovascular complaints Respiratory: Respiratory: Reports as per HPI Gastrointestinal: Gastrointestinal: Reports no additional gastrointestinal complaints Musculoskeletal: Musculoskeletal: Reports no additional musculoskeletal complaints Neurologic: Reports system reviewed and no additional complaints, except as documented Exam Narrative: General: Well-developed, nontoxic-appearing male in the semi-Alexandre position in bed in no distress. Weight: 124.1 kg. BMI: 41.6. HEENT: PERRL, EOMI. Sclera anicteric. Oral mucosa moist. Crowded oropharynx. Neck: Supple. Exam limited due to neck circumference. Respiratory: Respirations are nonlabored and he is speaking in full sentences. Lung sounds are diminished at the bases with scattered crackles. Occasional expiratory wheezes. Cardiovascular: Regular rate and rhythm with S1-S2. Gastrointestinal: Abdomen is soft, obese, nontender, and nondistended with positive bowel sounds. Skin: Warm and dry. No rash or lesions on limited exam. Extremities: No cyanosis or clubbing. Bilateral lower extremity pitting edema. No palpable knots or cords. Neurological: Alert. Cranial nerves 2-12 are grossly intact. No gross focal deficits to casual conversation. Psychiatric: Pleasant and cooperative with normal mood and affect. Judgment and insight intact. Objective Data Vital Signs Vital Signs: Vital Signs - 24 hr 04/13/24 15:45 04/13/24 16:00 04/13/24 20:00 Temperature 36.4 C Pulse Rate 87 80 Respiratory Rate 18 Blood Pressure 144/85 H Pulse Oximetry 98 Oxygen Delivery Room Air Fraction of Inspired Oxygen 04/13/24 20:00 04/13/24 20:00 04/13/24 20:07 Temperature 36.5 C Pulse Rate 79 99 85 Respiratory Rate 20 Blood Pressure 142/98 H Pulse Oximetry 95 Oxygen Delivery Fraction of Inspired Oxygen 04/13/24 21:23 04/13/24 21:40 04/13/24 21:50 Temperature 36.5 C Pulse Rate 79 85 86 Respiratory Rate 20 20 20 Blood Pressure 142/98 H Pulse Oximetry 95 Oxygen Delivery Fraction of Inspired Oxygen 04/13/24 22:01 04/13/24 22:22 04/14/24 00:00 Temperature 36.5 C Pulse Rate 77 74 Respiratory Rate 22 H 20 Blood Pressure 137/84 Pulse Oximetry 95 96 100 Oxygen Delivery Autopap Fraction of Inspired Oxygen 04/14/24 00:00 04/14/24 02:09 04/14/24 02:21 Temperature Pulse Rate 74 75 70 Respiratory Rate 20 20 Blood Pressure Pulse Oximetry Oxygen Delivery Fraction of Inspired Oxygen 04/14/24 03:23 04/14/24 03:26 04/14/24 04:00 Temperature 36.5 C 36.5 C Pulse Rate 79 79 76 Respiratory Rate 20 20 Blood Pressure 140/90 140/90 Pulse Oximetry 93 93 Oxygen Delivery Fraction of Inspired Oxygen 04/14/24 07:30 04/14/24 07:30 04/14/24 07:41 Temperature Pulse Rate 83 85 Respiratory Rate 20 20 Blood Pressure Pulse Oximetry 94 Oxygen Delivery Room Air Fraction of Inspired Oxygen 21 04/14/24 08:00 04/14/24 08:00 04/14/24 08:57 Temperature 36.2 C L Pulse Rate 84 83 Respiratory Rate 18 Blood Pressure 144/61 H Pulse Oximetry 97 Oxygen Delivery Room Air Fraction of Inspired Oxygen 04/14/24 10:02 04/14/24 12:00 04/14/24 13:28 Temperature 36.0 C L Pulse Rate 83 71 73 Respiratory Rate 18 18 Blood Pressure 110/58 L Pulse Oximetry 98 94 Oxygen Delivery Autopap Fraction of Inspired Oxygen 04/14/24 13:28 04/14/24 13:28 04/14/24 13:40 Temperature Pulse Rate 73 76 Respiratory Rate 18 18 Blood Pressure Pulse Oximetry 94 Oxygen Delivery CPAP Fraction of Inspired Oxygen 21 Intake/Output Intake/Output: Intake & Output 04/11/24 04/12/24 04/13/24 04/14/24 23:59 23:59 23:59 23:59 Intake Total 3050 870 Output Total 480 1325 1200 Balance -480 1725 -330 Meds/Results Medications: Active Medications Generic Name Dose Route Start Last Admin Trade Name Freq PRN Reason Stop Dose Admin Acetaminophen 650 mg 04/12/24 18:42 Acetaminophen 325 Mg Tablet PO Q4H PRN Mild Pain (1-3) or Fever Albuterol 1 puff 04/13/24 00:16 Albuterol Sulfate (*Sp) Aerosol 1 Puff INHALATION Q4-6H PRN shortness of breath or wheezin Albuterol/Ipratropium 3 ml 04/13/24 12:39 Ipratropium 0.5 Mg/Albuterol Sulfate 2.5 Mg Ampul.Neb 3 Ml NEBULIZE Q6HRT PRN Shortness Of Breath Or Wheezing Allopurinol 300 mg 04/13/24 09:00 04/14/24 08:55 Allopurinol 300 Mg Tablet PO 300 mg DAILY ARIAN Administration Aspirin 81 mg 04/13/24 13:25 04/14/24 08:55 Aspirin 81 Mg Enteric Tablet PO 81 mg QAM ARIAN Administration Atorvastatin Calcium 80 mg 04/13/24 09:00 04/14/24 08:56 Atorvastatin 40 Mg Tablet PO 80 mg DAILY ARIAN Administration Azithromycin 250 mg 04/13/24 09:00 04/14/24 08:56 Azithromycin 250 Mg Tablet PO 04/15/24 09:01 250 mg DAILY ARIAN Administration Carvedilol 25 mg 04/14/24 21:00 Carvedilol 25 Mg Tablet PO Q12HR ARIAN Dextrose 12.5 gm 04/12/24 18:42 Dextrose 50% 25 Gm/50 Ml Syringe IV PUSH PRN PRN Hypoglycemia Protocol Dextrose 12.5 gm 04/12/24 20:42 Dextrose 50% 25 Gm/50 Ml Syringe IV PUSH PRN PRN Hypoglycemia Protocol Enoxaparin Sodium 40 mg 04/13/24 09:00 04/14/24 09:00 Enoxaparin 40 Mg/0.4 Ml Syringe SUB-Q 40 mg DAILY ARIAN Administration Famotidine 20 mg 04/13/24 09:00 04/14/24 08:57 Famotidine 20 Mg Tablet PO 20 mg DAILY ARIAN Administration Furosemide 40 mg 04/15/24 09:00 Furosemide Inj 40 Mg/4 Ml Vial IV PUSH DAILY ARIAN Glucagon 1 mg 04/12/24 18:42 Glucagon For Inj 1 Mg Vial IM PRN PRN Hypoglycemia Protocol Glucagon 1 mg 04/12/24 20:42 Glucagon For Inj 1 Mg Vial IM PRN PRN Hypoglycemia Protocol Glucose 15 gm 04/12/24 18:42 Glucose Oral Gel 15 Gm Of Glucse In 37.5 Gm Tube PO PRN PRN Hypoglycemia Protocol Glucose 15 gm 04/12/24 20:42 Glucose Oral Gel 15 Gm Of Glucse In 37.5 Gm Tube PO PRN PRN Hypoglycemia Protocol Hydrocortisone 1 applic 04/12/24 23:28 Hydrocortisone 2.5% Cream 30 Gm Tube TOPICAL TID PRN itching Dextrose 1,000 mls @ 100 mls/hr 04/12/24 20:42 Dextrose 5% 1,000 Ml IVPB PRN PRN Hypoglycemia Protocol Insulin Aspart 3 - 6 units 04/13/24 08:00 04/14/24 12:54 Insulin Aspart (*Bkc) 100 Units/Ml SUB-Q Not Given TIDWM ARIAN Protocol Insulin Aspart 1 - 3 units 04/12/24 21:00 04/13/24 22:39 Insulin Aspart (*Bkc) 100 Units/Ml SUB-Q Not Given HS ARIAN Protocol Insulin Aspart 16 units 04/13/24 09:00 04/14/24 12:55 Insulin Aspart (*Bkc) 100 Units/Ml SUB-Q 16 units TID ARIAN Administration Insulin Glargine 40 units 04/13/24 09:00 04/14/24 09:01 Insulin Glargine (*Bkc) 100 Units/Ml SUB-Q 40 units DAILY ARIAN Administration Ipratropium [place] 0.5 mg 04/12/24 20:00 04/14/24 13:28 Ipratropium Br 0.02% Inh Soln 0.5 Mg/2.5 Ml Vial INHALATION 0.5 mg Q6HRT ARIAN Administration Montelukast Sodium 10 mg 04/13/24 09:00 04/14/24 08:58 Montelukast Sodium 10 Mg Tablet PO 10 mg DAILY ARIAN Administration Ondansetron HCl 4 mg 04/12/24 18:42 Ondansetron Inj 4 Mg/2 Ml Vial IV PUSH Q4H PRN Nausea Pantoprazole Sodium 20 mg 04/13/24 09:00 04/14/24 08:58 Pantoprazole Sod Sesquihydrate 20 Mg Tab PO 20 mg DAILY ARIAN Administration Perflutren Lipid Microsphere 0 ml 04/12/24 20:41 Perflutren Lipid Microspheres 1.5 Ml Vial Diluted To 10 Ml Total Volume IV PUSH 04/15/24 20:41 ONCE PRN adequate visualization Protocol Polyethylene Glycol 17 gm 04/13/24 13:38 Polyethylene Glycol 3350 17 Gm Powd.Pack PO QAM PRN Constipation Potassium Chloride 40 meq 04/13/24 09:00 04/14/24 09:00 Potassium Chloride 20 Meq Packet (For Liquid) PO 04/16/24 09:00 40 meq DAILY ARIAN Administration Prednisone 40 mg 04/13/24 08:00 04/14/24 08:59 Prednisone 20 Mg Tablet PO 04/17/24 07:59 40 mg DAILY@0800 ARIAN Administration Fluticasone/Salmeterol 2 puff 04/13/24 08:00 04/14/24 07:32 Fluticasone/Salmeterol 230-21 Mcg Inhaler 1 Puff INHALATION 2 puff Q12HRT ARIAN Administration Spironolactone 25 mg 04/13/24 09:00 04/14/24 08:59 Spironolactone 25 Mg Tablet PO 25 mg DAILY ARIAN Administration Tamsulosin HCl 0.4 mg 04/13/24 21:00 04/13/24 20:07 Tamsulosin Hcl 0.4 Mg Capsule PO 0.4 mg HS ARIAN Administration Valsartan 160 mg 04/13/24 09:00 04/14/24 08:59 Valsartan 160 Mg Tablet PO 160 mg BID ARIAN Administration Radiology Results: ITS Impressions Chest X-Ray 04/12/24 16:59 IMPRESSION: 1. Mild pulmonary edema. 2. Small pleural effusions. 3. Cardiomegaly. Chest CTA 04/12/24 18:40 IMPRESSION: 1. No pulmonary embolism. 2. Bilateral moderate pleural effusion with adjacent atelectasis versus pneumonia. 3. Large bulge seen in the spleen unchanged from previous examination. Further evaluation advised to exclude a mass. Abscess or hematoma is less likely although cannot be excluded. Abdomen Ultrasound 04/13/24 08:08 Impression: Diffuse fatty infiltration of liver. 10.4 x 9.4 x 9.9 cm predominantly echogenic, solid splenic mass. This could reflect large splenic hemangioma. Further evaluation with pre and postcontrast MRI should be considered. Labs Labs: Laboratory Results - last 24 hr 04/13/24 04/13/24 04/13/24 17:00 21:19 21:23 WBC RBC Hgb Hct MCV MCH MCHC RDW Plt Count MPV Sodium Potassium Chloride Carbon Dioxide Anion Gap BUN Creatinine Estim Creat Clear Calc Estimated GFR Glucose POC Capillary Glucose 196 H 190 H Calcium Troponin I 0.049 H* 04/14/24 04/14/24 04/14/24 07:35 09:29 11:26 WBC 8.2 RBC 4.96 Hgb 12.9 L Hct 40.0 L MCV 80.6 MCH 26.0 MCHC 32.3 RDW 15.8 H Plt Count 180 MPV 11.6 H Sodium 136 L Potassium 3.1 L Chloride 102 Carbon Dioxide 30 Anion Gap 4 BUN 24 H Creatinine 1.60 H Estim Creat Clear Calc 57 Estimated GFR 53 L Glucose 148 H POC Capillary Glucose 112 H 185 H Calcium 9.3 Troponin I
[2024-04-14 16:31] LABS: Glucose Point of Care 254 mg/dl (65-105)
[2024-04-14] MEDS: INSULIN ASPART (*BKC) 100 UNITS/ML SUB-Q (17:11)
[2024-04-14] MEDS: carvediloL 25 MG TABLET PO (20:24)
[2024-04-14] MEDS: TAMSULOSIN HCL 0.4 MG CAPSULE PO (20:25)
[2024-04-14 20:32] LABS: Glucose Point of Care 196 mg/dl (65-105)
[2024-04-15] VITALS (33 sets, daily range): BP systolic 116–160; BP diastolic 52–104; PULSE 52–80; RESP 15–20; TEMP 35.9–36.8; O2SAT 94–99
[2024-04-15] MEDS: IPRATROPIUM BR 0.02% INH SOLN 0.5 MG/2.5 ML VIAL INHALATION ×2 (02:46→22:31)
[2024-04-15 05:23] LABS: Hematocrit 38.9 % (42.0-52.0); Hemoglobin 12.4 g/dL (14.0-18.0); Mean Corpuscular HGB Conc 31.9 g/dl (32-36); Mean Corpuscular Hemoglobin 25.9 pg (26-34); Mean Corpuscular Volume 81.2 fl (80-100); Mean Platelet Volume 12.2 fl (7.4-10.4); Platelet Count Result 197 k/mm3 (150-375); Red Blood Count 4.79 M/mm3 (4.6-6.20); Red Cell Distribution Width 15.5 % (11.5-14.5); White Blood Count 10.1 K/mm3 (4.5-10.0)
[2024-04-15 05:26] LABS: Anion Gap 3 mmol/L (4-12); Blood Urea Nitrogen 28 mg/dL (9-20); Calcium 9.4 mg/dL (8.4-10.2); Carbon Dioxide 29 mmol/L (22-30); Chloride 104 mmol/L (98-107); Estimated CRCL calculation 56 ml/min; Estimated Glomerular Filt Rate 53; Glucose 91 mg/dL (65-110); Potassium 3.8 mmol/L (3.4-5.0); Sodium 136 mmol/L (137-145)
[2024-04-15 08:01] LABS: Glucose Point of Care 103 mg/dl (65-105)
--- NOTE | 2024-04-15 08:34 | PM.IMPN ---
Progress Note: A&P Assessment and Plan (1) CHF exacerbation: Code(s): I50.9 - Heart failure, unspecified Status: Acute Assessment and Plan: The patient presented to the emergency department for evaluation of shortness of breath and wheezing Labs, imaging, EKG, and all reports were reviewed. Symptoms have been ongoing for couple of months but worse most recently. CT scan shows bilateral pleural effusions which are likely the cause of a shortness of breath in addition to asthma. cardiology consulted, notes reviewed: He has a history of open heart surgery, details of which are not known. he denies any CABG done during that time - It is my clinical impression that he has decompensated HF and the troponin elevation is secondary to type 2 MA - No need for heparin infusion - Echo to assess LV systolic function and wall motion - Will continue to diureses him; one dose of 5 mg Metolazone today, continue IV diuresis - Monitor and optimize anti-hypertensives - Start ASA 81; continue statin, and BB Troponin is mildly elevated and will be trended. He does have a history of coronary artery disease but is not complaining of any chest pain. Monitor on telemetry. Echocardiogram ordered. - will decrease lasix to daily from BID as kidney function worsen 1/2- cardiology following. TTE done shows EF 25-30%, PASP 65 mm Hg. he is agreeable for [facility] today (2) Asthma: Code(s): J45.909 - Unspecified asthma, uncomplicated Status: Acute Assessment and Plan: He may need thoracentesis depending on his course. he has scheduled bronchodilators and steroids as well. No indication for antibiotics at this time. continue to monitor resp status (3) Coronary artery disease: Code(s): I25.10 - Atherosclerotic heart disease of [place] coronary artery without angina pectoris Status: Acute (4) Hypertension: Code(s): I10 - Essential (primary) hypertension Status: Acute (5) Splenic cyst: Code(s): D73.4 - Cyst of spleen Status: Acute Assessment and Plan: Ultrasound ordered to evaluate ?large bulge? seen in the spleen, previously thought to be related to cysts. ultrasound: Diffuse fatty infiltration of liver. 10.4 x 9.4 x 9.9 cm predominantly echogenic, solid splenic mass. This could reflect large splenic hemangioma. Further evaluation with pre and postcontrast MRI should be considered. (6) Type 2 diabetes mellitus: Code(s): E11.9 - Type 2 diabetes mellitus without complications Status: Acute Assessment and Plan: Initiate sliding scale insulin, Accu-Cheks, and hypoglycemic protocol. Time Spent With Patient Time with patient: 25 - 35 minutes Subjective Date/time seen: 04/15/24 08:34 Interval history: This is a 63-year-old male with asthma, coronary artery disease hypertension, hyperlipidemia, insulin dependent diabetes, and benign prostatic hyperplasia who presented to the emergency department via private vehicle with complaints of worsening dyspnea. Had an open heart surgery in 2000 no bypass grafting done at that time. ED called STEMI based on his EKG review of his EKG it was suggestive of a left bundle branch block. Troponin has been flat He has been diuresing well TTE done shows EF 25-30%, PASP 65 mm Hg. He was reluctant at first but now agreeable for left hear cath procedure. Had been NPO since midnight. Review of Systems Review of Systems: 12 systems were reviewed and are negative except for as per HPI. Exam Narrative: General: Well-developed, nontoxic-appearing male in the semi-Alexandre position in bed in no distress. Weight: 124.1 kg. BMI: 41.6. HEENT: PERRL, EOMI. Sclera anicteric. Oral mucosa moist. Crowded oropharynx. Neck: Supple. Exam limited due to neck circumference. Respiratory: Respirations are nonlabored and he is speaking in full sentences. Lung sounds are diminished at the bases with scattered crackles. Occasional expiratory wheezes. Cardiovascular: Regular rate and rhythm with S1-S2. Gastrointestinal: Abdomen is soft, obese, nontender, and nondistended with positive bowel sounds. Skin: Warm and dry. No rash or lesions on limited exam. Extremities: No cyanosis or clubbing. Bilateral lower extremity pitting edema. No palpable knots or cords. Neurological: Alert. Cranial nerves 2-12 are grossly intact. No gross focal deficits to casual conversation. Psychiatric: Pleasant and cooperative with normal mood and affect. Judgment and insight intact. Objective Data Vital Signs Vital Signs: Vital Signs - 24 hr 04/14/24 08:57 04/14/24 10:02 04/14/24 12:00 Temperature 96.8 F L Pulse Rate 83 83 71 Respiratory Rate 18 Blood Pressure 110/58 L Pulse Oximetry 98 Oxygen Delivery Fraction of Inspired Oxygen 04/14/24 12:00 04/14/24 13:28 04/14/24 13:28 Temperature Pulse Rate 75 73 Respiratory Rate 18 Blood Pressure Pulse Oximetry 94 94 Oxygen Delivery Autopap CPAP Fraction of Inspired Oxygen 21 04/14/24 13:28 04/14/24 13:40 04/14/24 14:00 Temperature 97.0 F L Pulse Rate 73 76 70 Respiratory Rate 18 18 18 Blood Pressure 140/83 Pulse Oximetry 99 Oxygen Delivery Fraction of Inspired Oxygen 04/14/24 16:00 04/14/24 16:00 04/14/24 19:31 Temperature 97.0 F L 97.7 F Pulse Rate 70 71 68 Respiratory Rate 18 22 H Blood Pressure 140/83 140/79 Pulse Oximetry 99 96 Oxygen Delivery Fraction of Inspired Oxygen 04/14/24 19:45 04/14/24 20:00 04/14/24 20:00 Temperature 97.7 F Pulse Rate 68 71 Respiratory Rate 22 H Blood Pressure 140/79 Pulse Oximetry 96 Oxygen Delivery Room Air Fraction of Inspired Oxygen 04/14/24 20:24 04/14/24 21:10 04/14/24 21:19 Temperature Pulse Rate 71 79 82 Respiratory Rate 18 18 Blood Pressure Pulse Oximetry Oxygen Delivery Fraction of Inspired Oxygen 04/14/24 23:38 04/14/24 23:40 04/15/24 00:00 Temperature 98.4 F Pulse Rate 66 80 80 Respiratory Rate 20 19 Blood Pressure 131/76 Pulse Oximetry 95 94 Oxygen Delivery Autopap Fraction of Inspired Oxygen 04/15/24 02:46 04/15/24 02:46 04/15/24 02:53 Temperature Pulse Rate 74 75 76 Respiratory Rate 15 17 17 Blood Pressure Pulse Oximetry 95 Oxygen Delivery Autopap Fraction of Inspired Oxygen 04/15/24 03:35 04/15/24 03:38 04/15/24 04:00 Temperature 97.8 F 97.8 F Pulse Rate 73 73 64 Respiratory Rate 20 20 Blood Pressure 137/80 137/80 Pulse Oximetry 97 97 Oxygen Delivery Fraction of Inspired Oxygen 04/15/24 08:00 Temperature 96.6 F L Pulse Rate 52 L Respiratory Rate 16 Blood Pressure 160/80 H Pulse Oximetry 96 Oxygen Delivery Fraction of Inspired Oxygen Intake/Output Intake/Output: Intake & Output 04/12/24 04/13/24 04/14/2402/25 23:59 23:59 23:59 23:59 Intake Total 3050 1510 0 Output Total 480 1325 1600 Balance -480 1725 -90 0 Meds/Results Medications: Active Medications Generic Name Dose Route Start Last Admin Trade Name Freq PRN Reason Stop Dose Admin Acetaminophen 650 mg 04/12/24 18:42 Acetaminophen 325 Mg Tablet PO Q4H PRN Mild Pain (1-3) or Fever Albuterol 1 puff 04/13/24 00:16 Albuterol Sulfate (*Sp) Aerosol 1 Puff INHALATION Q4-6H PRN shortness of breath or wheezin Albuterol/Ipratropium 3 ml 04/13/24 12:39 Ipratropium 0.5 Mg/Albuterol Sulfate 2.5 Mg Ampul.Neb 3 Ml NEBULIZE Q6HRT PRN Shortness Of Breath Or Wheezing Allopurinol 300 mg 04/13/24 09:00 04/14/24 08:55 Allopurinol 300 Mg Tablet PO 300 mg DAILY ARIAN Administration Aspirin 81 mg 04/13/24 13:25 04/14/24 08:55 Aspirin 81 Mg Enteric Tablet PO 81 mg QAM ARIAN Administration Atorvastatin Calcium 80 mg 04/13/24 09:00 04/14/24 08:56 Atorvastatin 40 Mg Tablet PO 80 mg DAILY ARIAN Administration Azithromycin 250 mg 04/13/24 09:00 04/14/24 08:56 Azithromycin 250 Mg Tablet PO 04/15/24 09:01 250 mg DAILY ARIAN Administration Carvedilol 25 mg 04/14/24 21:00 04/14/24 20:24 Carvedilol 25 Mg Tablet PO 25 mg Q12HR ARIAN Administration Dextrose 12.5 gm 04/12/24 18:42 Dextrose 50% 25 Gm/50 Ml Syringe IV PUSH PRN PRN Hypoglycemia Protocol Dextrose 12.5 gm 04/12/24 20:42 Dextrose 50% 25 Gm/50 Ml Syringe IV PUSH PRN PRN Hypoglycemia Protocol Enoxaparin Sodium 40 mg 04/13/24 09:00 04/14/24 09:00 Enoxaparin 40 Mg/0.4 Ml Syringe SUB-Q 40 mg DAILY ARIAN Administration Famotidine 20 mg 04/13/24 09:00 04/14/24 08:57 Famotidine 20 Mg Tablet PO 20 mg DAILY ARIAN Administration Furosemide 40 mg 04/15/24 09:00 Furosemide Inj 40 Mg/4 Ml Vial IV PUSH DAILY ARIAN Glucagon 1 mg 04/12/24 18:42 Glucagon For Inj 1 Mg Vial IM PRN PRN Hypoglycemia Protocol Glucagon 1 mg 04/12/24 20:42 Glucagon For Inj 1 Mg Vial IM PRN PRN Hypoglycemia Protocol Glucose 15 gm 04/12/24 18:42 Glucose Oral Gel 15 Gm Of Glucse In 37.5 Gm Tube PO PRN PRN Hypoglycemia Protocol Glucose 15 gm 04/12/24 20:42 Glucose Oral Gel 15 Gm Of Glucse In 37.5 Gm Tube PO PRN PRN Hypoglycemia Protocol Hydrocortisone 1 applic 04/12/24 23:28 Hydrocortisone 2.5% Cream 30 Gm Tube TOPICAL TID PRN itching Dextrose 1,000 mls @ 100 mls/hr 04/12/24 20:42 Dextrose 5% 1,000 Ml IVPB PRN PRN Hypoglycemia Protocol Insulin Aspart 3 - 6 units 04/13/24 08:00 04/15/24 08:33 Insulin Aspart (*Bkc) 100 Units/Ml SUB-Q Not Given TIDWM [facility] Protocol Insulin Aspart 1 - 3 units 04/12/24 21:00 04/14/24 20:25 Insulin Aspart (*Bkc) 100 Units/Ml SUB-Q Not Given HS [facility] Protocol Insulin Aspart 16 units 04/13/24 09:00 04/15/24 08:34 Insulin Aspart (*Bkc) 100 Units/Ml SUB-Q Not Given TID ARIAN Insulin Glargine 40 units 04/13/24 09:00 04/14/24 09:01 Insulin Glargine (*Bkc) 100 Units/Ml SUB-Q 40 units DAILY [facility] Administration Ipratropium [place] 0.5 mg 04/12/24 20:00 04/15/24 02:46 Ipratropium Br 0.02% Inh Soln 0.5 Mg/2.5 Ml Vial INHALATION 0.5 mg Q6HRT ARIAN Administration Montelukast Sodium 10 mg 04/13/24 09:00 04/14/24 08:58 Montelukast Sodium 10 Mg Tablet PO 10 mg DAILY ARIAN Administration Ondansetron HCl 4 mg 04/12/24 18:42 Ondansetron Inj 4 Mg/2 Ml Vial IV PUSH Q4H PRN Nausea Pantoprazole Sodium 20 mg 04/13/24 09:00 04/14/24 08:58 Pantoprazole Sod Sesquihydrate 20 Mg Tab PO 20 mg DAILY ARIAN Administration Perflutren Lipid Microsphere 0 ml 04/12/24 20:41 Perflutren Lipid Microspheres 1.5 Ml Vial Diluted To 10 Ml Total Volume IV PUSH 04/15/24 20:41 ONCE PRN adequate visualization Protocol Polyethylene Glycol 17 gm 04/13/24 13:38 Polyethylene Glycol 3350 17 Gm Powd.Pack PO QAM PRN Constipation Potassium Chloride 40 meq 04/13/24 09:00 04/14/24 09:00 Potassium Chloride 20 Meq Packet (For Liquid) PO 04/16/24 09:00 40 meq DAILY ARIAN Administration Prednisone 40 mg 04/13/24 08:00 04/14/24 08:59 Prednisone 20 Mg Tablet PO 04/17/24 07:59 40 mg DAILY@0800 ARIAN Administration Fluticasone/Salmeterol 2 puff 04/13/24 08:00 04/14/24 21:06 Fluticasone/Salmeterol 230-21 Mcg Inhaler 1 Puff INHALATION 2 puff Q12HRT ARIAN Administration Spironolactone 25 mg 04/13/24 09:00 04/14/24 08:59 Spironolactone 25 Mg Tablet PO 25 mg DAILY ARIAN Administration Tamsulosin HCl 0.4 mg 04/13/24 21:00 04/14/24 20:25 Tamsulosin Hcl 0.4 Mg Capsule PO 0.4 mg HS ARIAN Administration Valsartan 160 mg 04/13/24 09:00 04/14/24 17:10 Valsartan 160 Mg Tablet PO 160 mg BID ARIAN Administration Radiology Results: ITS Impressions Chest X-Ray 04/12/24 16:59 IMPRESSION: 1. Mild pulmonary edema. 2. Small pleural effusions. 3. Cardiomegaly. Chest CTA 04/12/24 18:40 IMPRESSION: 1. No pulmonary embolism. 2. Bilateral moderate pleural effusion with adjacent atelectasis versus pneumonia. 3. Large bulge seen in the spleen unchanged from previous examination. Further evaluation advised to exclude a mass. Abscess or hematoma is less likely although cannot be excluded. Abdomen Ultrasound 04/13/24 08:08 Impression: Diffuse fatty infiltration of liver. 10.4 x 9.4 x 9.9 cm predominantly echogenic, solid splenic mass. This could reflect large splenic hemangioma. Further evaluation with pre and postcontrast MRI should be considered. Labs Labs: Laboratory Results - last 24 hr 04/14/24 04/14/24 04/14/24 09:29 11:26 16:29 WBC 8.2 RBC 4.96 Hgb 12.9 L Hct 40.0 L MCV 80.6 MCH 26.0 MCHC 32.3 RDW 15.8 H Plt Count 180 MPV 11.6 H Sodium 136 L Potassium 3.1 L Chloride 102 Carbon Dioxide 30 Anion Gap 4 BUN 24 H Creatinine 1.60 H Estim Creat Clear Calc 57 Estimated GFR 53 L Glucose 148 H POC Capillary Glucose 185 H 254 H Calcium 9.3 04/14/24 04/15/24 04/15/24 19:40 05:02 07:57 WBC 10.1 H RBC 4.79 Hgb 12.4 L Hct 38.9 L MCV 81.2 MCH 25.9 L MCHC 31.9 L RDW 15.5 H Plt Count 197 MPV 12.2 H Sodium 136 L Potassium 3.8 Chloride 104 Carbon Dioxide 29 Anion Gap 3 L BUN 28 H Creatinine 1.60 H Estim Creat Clear Calc 56 Estimated GFR 53 L Glucose 91 POC Capillary Glucose 196 H 103 Calcium 9.4 Quality VTE Prophylaxis VTE prophylaxis: pharmacologic ordered
[2024-04-15] MEDS: predniSONE 20 MG TABLET 40 MG PO (09:09)
[2024-04-15] MEDS: allopurinoL 300 MG TABLET PO (09:10)
[2024-04-15] MEDS: ATORVASTATIN 40 MG TABLET 80 MG PO (09:11)
[2024-04-15] MEDS: carvediloL 25 MG TABLET PO ×2 (09:11→20:36)
[2024-04-15] MEDS: AZITHROMYCIN 250 MG TABLET PO (09:11)
[2024-04-15] MEDS: FAMOTIDINE 20 MG TABLET PO (09:12)
[2024-04-15] MEDS: PANTOPRAZOLE SOD SESQUIHYDRATE 20 MG TAB PO (09:12)
[2024-04-15] MEDS: MONTELUKAST SODIUM 10 MG TABLET PO (09:12)
[2024-04-15] MEDS: VALSARTAN 160 MG TABLET PO ×2 (09:13→17:08)
[2024-04-15 11:42] LABS: Glucose Point of Care 104 mg/dl (65-105)
--- NOTE | 2024-04-15 12:08 | P.SEDATION_ITS ---
Moderate Sedation Note-Pt Data Patient Data Diagnosis: Cardiomyopathy Acute systolic heart failure Hypertension Procedure to be performed/Plan: Left heart catheterization Coronary angiography Allergies Allergy/AdvReac Type Severity Reaction Status Date / Time No Known Allergies Allergy Verified 04/12/24 16:36 Home Medications ?Medication ?Instructions ?Recorded ?Confirmed ?Type albuterol sulfate 90 mcg/actuation 1 inh inhalation Q4-6H PRN 06/08/19 04/12/24 Rx breath activated powder shortness of breath or wheezing #1 inhaler,sensor ea tamsulosin 0.4 mg capsule (Flomax) 0.4 mg PO HS #30 caps 10/06/22 04/12/24 Rx albuterol sulfate 2.5 mg/3 mL 2.5 mg (3 mL) inhalation Q6H #90 mL 11/06/22 04/12/24 Rx (0.083 %) solution for nebulization allopurinol 300 mg tablet 300 mg PO DAILY 11/06/22 04/12/24 History atorvastatin 80 mg tablet 80 mg PO DAILY 11/06/22 04/12/24 History carvedilol 12.5 mg tablet 12.5 mg PO Q12H 11/06/22 04/12/24 History famotidine 20 mg tablet 20 mg PO DAILY 11/06/22 04/12/24 History insulin aspart U-100 100 unit/mL 16 unit (0.16 mL) subcut TID #15 mL 11/06/22 04/12/24 Rx (3 mL) subcutaneous pen (Novolog FlexPen U-100 Insulin aspart) insulin glargine 100 unit/mL (3 50 unit (0.5 mL) subcut DAILY #15 11/06/22 04/12/24 Rx mL) subcutaneous pen mL liraglutide 0.6 mg/0.1 mL (18 mg/3 0.6 mg subcut DAILY 11/06/22 04/12/24 History mL) subcutaneous pen injector (Victoza 3-José Manuel) mometasone-formoterol HFA 200 2 puff inhalation BID 11/06/22 04/12/24 History mcg-5 mcg/actuation aerosol inhaler (Dulera) montelukast 10 mg tablet 10 mg PO DAILY 11/06/22 04/12/24 History omeprazole 10 mg capsule,delayed 10 mg PO DAILY 11/06/22 04/12/24 History release spironolactone 25 mg tablet 25 mg PO DAILY 11/06/22 04/12/24 History tiotropium bromide 2.5 2 puff inhalation DAILY 11/06/22 04/12/24 History mcg/actuation mist for inhalation (Spiriva Respimat) torsemide 20 mg tablet 20 mg PO .twice daily #60 tabs 11/06/22 04/12/24 Rx valsartan 160 mg tablet 160 mg PO BID 11/06/22 04/12/24 History hydrocortisone 2.5 % topical cream 1 applic topical TID PRN itching 03/16/23 04/12/24 Rx #30 grams azithromycin 250 mg tablet 250 mg PO DAILY 4 days #4 tabs 05/31/23 04/12/24 Rx Current Medications: Active Medications Acetaminophen (Acetaminophen 325 Mg Tablet) 650 mg PO Q4H PRN PRN Reason: Mild Pain (1-3) or Fever Albuterol (Albuterol Sulfate (*Sp) Aerosol 1 Puff) 1 puff INHALATION Q4-6H PRN PRN Reason: shortness of breath or wheezin Albuterol/Ipratropium (Ipratropium 0.5 Mg/Albuterol Sulfate 2.5 Mg Ampul.Neb 3 Ml) 3 ml NEBULIZE Q6HRT PRN PRN Reason: Shortness Of Breath Or Wheezing Allopurinol (Allopurinol 300 Mg Tablet) 300 mg PO DAILY [facility] Last Admin: 04/15/24 09:10 Dose: 300 mg Aspirin (Aspirin 81 Mg Enteric Tablet) 81 mg PO QAM [facility] Last Admin: 04/14/24 08:55 Dose: 81 mg Atorvastatin Calcium (Atorvastatin 40 Mg Tablet) 80 mg PO DAILY [facility] Last Admin: 04/15/24 09:11 Dose: 80 mg Carvedilol (Carvedilol 25 Mg Tablet) 25 mg PO Q12HR [facility] Last Admin: 04/15/24 09:11 Dose: 25 mg Dextrose (Dextrose 50% 25 Gm/50 Ml Syringe) 12.5 gm IV PUSH PRN PRN; Protocol PRN Reason: Hypoglycemia Dextrose (Dextrose 50% 25 Gm/50 Ml Syringe) 12.5 gm IV PUSH PRN PRN; Protocol PRN Reason: Hypoglycemia Enoxaparin Sodium (Enoxaparin 40 Mg/0.4 Ml Syringe) 40 mg SUB-Q DAILY [facility] Last Admin: 04/14/24 09:00 Dose: 40 mg Famotidine (Famotidine 20 Mg Tablet) 20 mg PO DAILY [facility] Last Admin: 04/15/24 09:12 Dose: 20 mg Furosemide (Furosemide Inj 40 Mg/4 Ml Vial) 40 mg IV PUSH DAILY [facility] Glucagon (Glucagon For Inj 1 Mg Vial) 1 mg IM PRN PRN; Protocol PRN Reason: Hypoglycemia Glucagon (Glucagon For Inj 1 Mg Vial) 1 mg IM PRN PRN; Protocol PRN Reason: Hypoglycemia Glucose (Glucose Oral Gel 15 Gm Of Glucse In 37.5 Gm Tube) 15 gm PO PRN PRN; Protocol PRN Reason: Hypoglycemia Glucose (Glucose Oral Gel 15 Gm Of Glucse In 37.5 Gm Tube) 15 gm PO PRN PRN; Protocol PRN Reason: Hypoglycemia Hydrocortisone (Hydrocortisone 2.5% Cream 30 Gm Tube) 1 applic TOPICAL TID PRN PRN Reason: itching Dextrose (Dextrose 5% 1,000 Ml) 1,000 mls @ 100 mls/hr IVPB PRN PRN; Protocol PRN Reason: Hypoglycemia Insulin Aspart (Insulin Aspart (*Bkc) 100 Units/Ml) 3 - 6 units SUB-Q TIDWM [facility]; Protocol Last Admin: 04/15/24 08:33 Dose: Not Given Insulin Aspart (Insulin Aspart (*Bkc) 100 Units/Ml) 1 - 3 units SUB-Q HS [facility]; Protocol Last Admin: 04/14/24 20:25 Dose: Not Given Insulin Aspart (Insulin Aspart (*Bkc) 100 Units/Ml) 16 units SUB-Q TID [facility] Last Admin: 04/15/24 08:34 Dose: Not Given Insulin Glargine (Insulin Glargine (*Bkc) 100 Units/Ml) 40 units SUB-Q DAILY [facility] Last Admin: 04/14/24 09:01 Dose: 40 units Ipratropium [place] (Ipratropium Br 0.02% Inh Soln 0.5 Mg/2.5 Ml Vial) 0.5 mg INHALATION Q6HRT [facility] Last Admin: 04/15/24 02:46 Dose: 0.5 mg Montelukast Sodium (Montelukast Sodium 10 Mg Tablet) 10 mg PO DAILY [facility] Last Admin: 04/15/24 09:12 Dose: 10 mg Ondansetron HCl (Ondansetron Inj 4 Mg/2 Ml Vial) 4 mg IV PUSH Q4H PRN PRN Reason: Nausea Pantoprazole Sodium (Pantoprazole Sod Sesquihydrate 20 Mg Tab) 20 mg PO DAILY [facility] Last Admin: 04/15/24 09:12 Dose: 20 mg Perflutren Lipid Microsphere (Perflutren Lipid Microspheres 1.5 Ml Vial Diluted To 10 Ml Total Volume) 0 ml IV PUSH ONCE PRN; Protocol PRN Reason: adequate visualization Stop: 04/15/24 20:41 Polyethylene Glycol (Polyethylene Glycol 3350 17 Gm Powd.Pack) 17 gm PO QAM PRN PRN Reason: Constipation Potassium Chloride (Potassium Chloride 20 Meq Packet (For Liquid)) 40 meq PO DAILY [facility] Stop: 04/16/24 09:00 Last Admin: 04/15/24 09:04 Dose: Not Given Prednisone (Prednisone 20 Mg Tablet) 40 mg PO DAILY@0800 [facility] Stop: 04/17/24 07:59 Last Admin: 04/15/24 09:09 Dose: 40 mg Fluticasone/Salmeterol (Fluticasone/Salmeterol 230-21 Mcg Inhaler 1 Puff) 2 puff INHALATION Q12HRT [facility] Last Admin: 04/14/24 21:06 Dose: 2 puff Spironolactone (Spironolactone 25 Mg Tablet) 25 mg PO DAILY [facility] Last Admin: 04/14/24 08:59 Dose: 25 mg Tamsulosin HCl (Tamsulosin Hcl 0.4 Mg Capsule) 0.4 mg PO HS [facility] Last Admin: 04/14/24 20:25 Dose: 0.4 mg Valsartan (Valsartan 160 Mg Tablet) 160 mg PO BID [facility] Last Admin: 04/15/24 09:13 Dose: 160 mg Sedation/Anesthesia: No previous sedation/anesthesia problems (including family history). [facility] Past Medical History Medical History (Updated 04/13/24 @ 05:46 by Leah Cutler PA-C) History of repair of congenital anomaly of heart Type 2 diabetes mellitus Coronary artery disease Gastroesophageal reflux disease Obstructive sleep apnea Benign prostatic disease Congestive heart failure Hyperlipidemia Asthma Hypertension Surgical History Surgical History (Updated 04/13/24 @ 05:46 by Leah Cutler PA-C) History of lithotripsy Family History Family History Father Hypertension Heart disease Social History Social History (Updated 04/12/24 @ 19:33 by Leah Cutler PA-C) Social History: Surrogate medical decision maker: Charlotte Mcclelland, spouse. Code status: Full code. Smoking status: Never smoker Alcohol intake: never Substance use: never Substance use type: does not use Do You Feel Safe in your Home?: Yes Lack of Transportation: No Lack of Food: Never True Current Housing: I Do Not Have Housing Concerned About Future Housing: No Difficulty Paying Gas/Electric Bills: No Difficulty Paying for Meds: No Currently Unemployed: No Education: High School Diploma/GED Difficulty w/ Childcare or Family Care: No Living arrangements: with family Occupation/Education: unemployed Spiritual care concerns: No Mod Sed Physical Exam Physical Exam Pre Procedural Exam: Normal: Appearance, Eyes, Ears, Nose, Neck, Throat, Airway, Lungs, Heart Size, Heart Rate, Heart Rhythm, Neuro Exam, Abdomen, Liver, Kidneys, Spleen, Breasts, Genitalia and Skin and Variation: Extremities (Edema) Hours since solid foods: 12 Hours since liquid intake: 12 Mallampati Classification: class II Internal Medicine - PN: Obj Da Vital Signs Vital Signs: Vital Signs - 24 hr 04/14/24 13:28 04/14/24 13:28 04/14/24 13:28 Temperature Pulse Rate 73 73 Respiratory Rate 18 18 Blood Pressure Pulse Oximetry 94 94 Oxygen Delivery Autopap CPAP Fraction of Inspired Oxygen 04/14/24 13:40 04/14/24 14:00 04/14/24 16:00 Temperature 36.1 C L 36.1 C L Pulse Rate 76 70 70 Respiratory Rate 18 18 18 Blood Pressure 140/83 140/83 Pulse Oximetry 99 99 Oxygen Delivery Fraction of Inspired Oxygen 04/14/24 16:00 04/14/24 19:31 04/14/24 19:45 Temperature 36.5 C 36.5 C Pulse Rate 71 68 68 Respiratory Rate 22 H 22 H Blood Pressure 140/79 140/79 Pulse Oximetry 96 96 Oxygen Delivery Fraction of Inspired Oxygen 04/14/24 20:00 04/14/24 20:00 04/14/24 20:24 Temperature Pulse Rate 71 71 Respiratory Rate Blood Pressure Pulse Oximetry Oxygen Delivery Room Air Fraction of Inspired Oxygen 04/14/24 21:10 04/14/24 21:19 04/14/24 23:38 Temperature 36.9 C Pulse Rate 79 82 66 Respiratory Rate 18 18 20 Blood Pressure 131/76 Pulse Oximetry 95 Oxygen Delivery Fraction of Inspired Oxygen 04/14/24 23:40 04/15/24 00:00 04/15/24 02:46 Temperature Pulse Rate 80 80 74 Respiratory Rate 19 15 Blood Pressure Pulse Oximetry 94 95 Oxygen Delivery Autopap Autopap Fraction of Inspired Oxygen 04/15/24 02:46 04/15/24 02:53 04/15/24 03:35 Temperature 36.6 C Pulse Rate 75 76 73 Respiratory Rate 17 17 20 Blood Pressure 137/80 Pulse Oximetry 97 Oxygen Delivery Fraction of Inspired Oxygen 04/15/24 03:38 04/15/24 04:00 04/15/24 08:00 Temperature 36.6 C 35.9 C L Pulse Rate 73 64 52 L Respiratory Rate 20 16 Blood Pressure 137/80 160/80 H Pulse Oximetry 97 96 Oxygen Delivery Fraction of Inspired Oxygen 04/15/24 09:11 04/15/24 11:41 Temperature 36.4 C Pulse Rate 69 67 Respiratory Rate 16 Blood Pressure 150/75 H Pulse Oximetry 95 Oxygen Delivery Fraction of Inspired Oxygen Intake/Output Intake/Output: Intake & Output 04/12/24 04/13/24 04/14/24 04/15/24 23:59 23:59 23:59 23:59 Intake Total 3050 1510 0 Output Total 480 1325 1600 Balance -480 1725 -90 0 Meds/Results Medications: Active Medications Generic Name Dose Route Start Last Admin Trade Name Freq PRN Reason Stop Dose Admin Acetaminophen 650 mg 04/12/24 18:42 Acetaminophen 325 Mg Tablet PO Q4H PRN Mild Pain (1-3) or Fever Albuterol 1 puff 04/13/24 00:16 Albuterol Sulfate (*Sp) Aerosol 1 Puff INHALATION Q4-6H PRN shortness of breath or wheezin Albuterol/Ipratropium 3 ml 04/13/24 12:39 Ipratropium 0.5 Mg/Albuterol Sulfate 2.5 Mg Ampul.Neb 3 Ml NEBULIZE Q6HRT PRN Shortness Of Breath Or Wheezing Allopurinol 300 mg 04/13/24 09:00 04/15/24 09:10 Allopurinol 300 Mg Tablet PO 300 mg DAILY [facility] Administration Aspirin 81 mg 04/13/24 13:25 04/14/24 08:55 Aspirin 81 Mg Enteric Tablet PO 81 mg QAM [facility] Administration Atorvastatin Calcium 80 mg 04/13/24 09:00 04/15/24 09:11 Atorvastatin 40 Mg Tablet PO 80 mg DAILY [facility] Administration Carvedilol 25 mg 04/14/24 21:00 04/15/24 09:11 Carvedilol 25 Mg Tablet PO 25 mg Q12HR [facility] Administration Dextrose 12.5 gm 04/12/24 18:42 Dextrose 50% 25 Gm/50 Ml Syringe IV PUSH PRN PRN Hypoglycemia Protocol Dextrose 12.5 gm 04/12/24 20:42 Dextrose 50% 25 Gm/50 Ml Syringe IV PUSH PRN PRN Hypoglycemia Protocol Enoxaparin Sodium 40 mg 04/13/24 09:00 04/14/24 09:00 Enoxaparin 40 Mg/0.4 Ml Syringe SUB-Q 40 mg DAILY [facility] Administration Famotidine 20 mg 04/13/24 09:00 04/15/24 09:12 Famotidine 20 Mg Tablet PO 20 mg DAILY [facility] Administration Furosemide 40 mg 04/15/24 09:00 Furosemide Inj 40 Mg/4 Ml Vial IV PUSH DAILY [facility] Glucagon 1 mg 04/12/24 18:42 Glucagon For Inj 1 Mg Vial IM PRN PRN Hypoglycemia Protocol Glucagon 1 mg 04/12/24 20:42 Glucagon For Inj 1 Mg Vial IM PRN PRN Hypoglycemia Protocol Glucose 15 gm 04/12/24 18:42 Glucose Oral Gel 15 Gm Of Glucse In 37.5 Gm Tube PO PRN PRN Hypoglycemia Protocol Glucose 15 gm 04/12/24 20:42 Glucose Oral Gel 15 Gm Of Glucse In 37.5 Gm Tube PO PRN PRN Hypoglycemia Protocol Hydrocortisone 1 applic 04/12/24 23:28 Hydrocortisone 2.5% Cream 30 Gm Tube TOPICAL TID PRN itching Dextrose 1,000 mls @ 100 mls/hr 04/12/24 20:42 Dextrose 5% 1,000 Ml IVPB PRN PRN Hypoglycemia Protocol Insulin Aspart 3 - 6 units 04/13/24 08:00 04/15/24 08:33 Insulin Aspart (*Bkc) 100 Units/Ml SUB-Q Not Given TIDWM [facility] Protocol Insulin Aspart 1 - 3 units 04/12/24 21:00 04/14/24 20:25 Insulin Aspart (*Bkc) 100 Units/Ml SUB-Q Not Given HS [facility] Protocol Insulin Aspart 16 units 04/13/24 09:00 04/15/24 08:34 Insulin Aspart (*Bkc) 100 Units/Ml SUB-Q Not Given TID [facility] Insulin Glargine 40 units 04/13/24 09:00 04/14/24 09:01 Insulin Glargine (*Bkc) 100 Units/Ml SUB-Q 40 units DAILY [facility] Administration Ipratropium [place] 0.5 mg 04/12/24 20:00 04/15/24 02:46 Ipratropium Br 0.02% Inh Soln 0.5 Mg/2.5 Ml Vial INHALATION 0.5 mg Q6HRT [facility] Administration Montelukast Sodium 10 mg 04/13/24 09:00 04/15/24 09:12 Montelukast Sodium 10 Mg Tablet PO 10 mg DAILY [facility] Administration Ondansetron HCl 4 mg 04/12/24 18:42 Ondansetron Inj 4 Mg/2 Ml Vial IV PUSH Q4H PRN Nausea Pantoprazole Sodium 20 mg 04/13/24 09:00 04/15/24 09:12 Pantoprazole Sod Sesquihydrate 20 Mg Tab PO 20 mg DAILY [facility] Administration Perflutren Lipid Microsphere 0 ml 04/12/24 20:41 Perflutren Lipid Microspheres 1.5 Ml Vial Diluted To 10 Ml Total Volume IV PUSH 04/15/24 20:41 ONCE PRN adequate visualization Protocol Polyethylene Glycol 17 gm 04/13/24 13:38 Polyethylene Glycol 3350 17 Gm Powd.Pack PO QAM PRN Constipation Potassium Chloride 40 meq 04/13/24 09:00 04/15/24 09:04 Potassium Chloride 20 Meq Packet (For Liquid) PO 04/16/24 09:00 Not Given DAILY [facility] Prednisone 40 mg 04/13/24 08:00 04/15/24 09:09 Prednisone 20 Mg Tablet PO 04/17/24 07:59 40 mg DAILY@0800 [facility] Administration Fluticasone/Salmeterol 2 puff 04/13/24 08:00 04/14/24 21:06 Fluticasone/Salmeterol 230-21 Mcg Inhaler 1 Puff INHALATION 2 puff Q12HRT [facility] Administration Spironolactone 25 mg 04/13/24 09:00 04/14/24 08:59 Spironolactone 25 Mg Tablet PO 25 mg DAILY [facility] Administration Tamsulosin HCl 0.4 mg 04/13/24 21:00 04/14/24 20:25 Tamsulosin Hcl 0.4 Mg Capsule PO 0.4 mg HS [facility] Administration Valsartan 160 mg 04/13/24 09:00 04/15/24 09:13 Valsartan 160 Mg Tablet PO 160 mg BID [facility] Administration Radiology Results: ITS Impressions Chest X-Ray 04/12/24 16:59 IMPRESSION: 1. Mild pulmonary edema. 2. Small pleural effusions. 3. Cardiomegaly. Chest CTA 04/12/24 18:40 IMPRESSION: 1. No pulmonary embolism. 2. Bilateral moderate pleural effusion with adjacent atelectasis versus pneumonia. 3. Large bulge seen in the spleen unchanged from previous examination. Further evaluation advised to exclude a mass. Abscess or hematoma is less likely although cannot be excluded. Abdomen Ultrasound 04/13/24 08:08 Impression: Diffuse fatty infiltration of liver. 10.4 x 9.4 x 9.9 cm predominantly echogenic, solid splenic mass. This could reflect large splenic hemangioma. Further evaluation with pre and postcontrast MRI should be considered. Labs 04/15/24 05:02 04/15/24 05:02 Labs: Laboratory Results - last 24 hr 04/14/24 04/14/24 04/15/24 16:29 19:40 05:02 WBC 10.1 H RBC 4.79 Hgb 12.4 L Hct 38.9 L MCV 81.2 MCH 25.9 L MCHC 31.9 L RDW 15.5 H Plt Count 197 MPV 12.2 H Sodium 136 L Potassium 3.8 Chloride 104 Carbon Dioxide 29 Anion Gap 3 L BUN 28 H Creatinine 1.60 H Estim Creat Clear Calc 56 Estimated GFR 53 L Glucose 91 POC Capillary Glucose 254 H 196 H Calcium 9.4 04/15/24 04/15/24 07:57 11:24 WBC RBC Hgb Hct MCV MCH MCHC RDW Plt Count MPV Sodium Potassium Chloride Carbon Dioxide Anion Gap BUN Creatinine Estim Creat Clear Calc Estimated GFR Glucose POC Capillary Glucose 103 104 Calcium ASA Classification/Sedation ASA Classification/Sedation ASA Class: III Emergent: No Risks: Risks, benefits and alternatives explained and patient/family accepted plan for sedation. Patient re-evaluated immediately prior to sedation.
--- NOTE | 2024-04-15 12:36 | P.PCNCC_ITS ---
Cardiac Cath Procedure Note Date of procedure:: 04/15/24 Performing physician:: Ely Thakkar MD Indication:: Acute systolic heart failure Type 2 [place] Cardiomyopathy Procedure Procedure performed:: Left heart catheterization Coronary angiography Sedation/Medication given:: Versed 1 mg Fentanyl 25 mcg Access site:: Right radial artery Estimated blood loss:: 5 cc Procedure note:: After discussing the risks, benefits and alternatives and informed consent was taken and signed. 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 Radial access was accessed and the 5-6 [place] sheath was placed. The left coronary ostium was engaged with a JL4 catheter and right coronary artery was accessed using a JR4 catheter.. Multiple images were taken in different projections. LVEDP was measured, no no left ventriculogram was performed because he had a recent echo Moderate sedation was done under my supervision An independent trained personal was monitoring him throughout the procedure Sedation start time 12 15 Sedation end time 1235 Findings:: 1. Left heart catheterization LVEDP: 40-42 mm Hg No significant LV-AO gradient on pullback 2. Coronary angiography: Left dominant system with a ramus Left main artery: Large caliber left main divides into left anterior descending, ramus and circumflex branches. No angiographic evidence of atherosclerotic disease Left anterior descending artery: Large caliber transapical vessel which gives rise to 2 moderate caliber diagonal branches. No angiographic evidence of atherosclerotic disease. Left circumflex artery: Large caliber dominant vessel gives rise to small caliber 2 marginal branches and left PDA. No angiographic evidence of atherosclerotic disease. Ramus intermedius artery: Large caliber branching vessel. No angiographic evidence of atherosclerotic Disease. Right coronary artery: Large caliber nondominant vessel with no angiographic evidence of atherosclerotic disease Conclusion:: 1. Normal coronaries 2. Nonischemic cardiomyopathy 3. Elevated LVEDP Assessment and Plan Assessment and plan (1) Congestive heart failure: Qualifiers: Heart failure chronicity: acute on chronic Heart failure type: unspecified Qualified Code(s): I50.9 - Heart failure, unspecified Code(s): I50.9 - Heart failure, unspecified Status: Acute (2) NICM (nonischemic cardiomyopathy): Code(s): I42.8 - Other cardiomyopathies Status: Acute Plan -increase Lasix to 80 mg twice daily -will give 5 mg dose of metolazonen once today -strict input-output -restrict oral fluid from 5528-6275 mL only
[2024-04-15] MEDS: POTASSIUM CHLORIDE 20 MEQ PACKET (FOR LIQUID) 40 MEQ PO (13:58)
[2024-04-15] MEDS: metOLazone 5 MG TABLET PO (13:58)
[2024-04-15 17:06] LABS: Glucose Point of Care 268 mg/dl (65-105)
[2024-04-15] MEDS: SPIRONOLACTONE 25 MG TABLET PO (17:08)
[2024-04-15] MEDS: ASPIRIN 81 MG ENTERIC TABLET PO (17:08)
[2024-04-15] MEDS: FUROSEMIDE INJ 100 MG/10 ML VIAL 80 MG IV PUSH (17:08)
[2024-04-15] MEDS: INSULIN ASPART (*BKC) 100 UNITS/ML SUB-Q ×2 (17:09→20:37)
[2024-04-15] MEDS: INSULIN ASPART (*BKC) 100 UNITS/ML 16 UNITS SUB-Q (17:09)
[2024-04-15] MEDS: TAMSULOSIN HCL 0.4 MG CAPSULE PO (20:37)
[2024-04-15 20:42] LABS: Glucose Point of Care 336 mg/dl (65-105)
[2024-04-15] MEDS: FLUTICASONE/SALMETEROL 230-21 MCG INHALER 1 PUFF 2 PUFF INHALATION (22:31)
[2024-04-16] VITALS (19 sets, daily range): BP systolic 118–137; BP diastolic 69–78; PULSE 62–657; RESP 12–18; TEMP 36.3–36.8; O2SAT 95–100
[2024-04-16] MEDS: IPRATROPIUM BR 0.02% INH SOLN 0.5 MG/2.5 ML VIAL INHALATION ×5 (04:21→21:18)
[2024-04-16] MEDS: FLUTICASONE/SALMETEROL 230-21 MCG INHALER 1 PUFF 2 PUFF INHALATION ×2 (07:20→21:19)
--- NOTE | 2024-04-16 07:36 | P.PNIM_ITS ---
Progress Note: A&P Assessment and Plan (1) CHF exacerbation: Code(s): I50.9 - Heart failure, unspecified Status: Acute Assessment and Plan: The patient presented to the emergency department for evaluation of shortness of breath and wheezing Labs, imaging, EKG, and all reports were reviewed. Symptoms have been ongoing for couple of months but worse most recently. CT scan shows bilateral pleural effusions which are likely the cause of a shortness of breath in addition to asthma. cardiology consulted, notes reviewed: He has a history of open heart surgery, details of which are not known. he denies any CABG done during that time - It is my clinical impression that he has decompensated HF and the troponin elevation is secondary to type 2 [place] - No need for heparin infusion - Echo to assess LV systolic function and wall motion - Will continue to diureses him; one dose of 5 mg Metolazone today, continue IV diuresis - Monitor and optimize anti-hypertensives - Start ASA 81; continue statin, and BB Troponin is mildly elevated and will be trended. He does have a history of coronary artery disease but is not complaining of any chest pain. Monitor on telemetry. Echocardiogram ordered. - will decrease lasix to daily from BID as kidney function worsen 1/2- cardiology following. TTE done shows EF 25-30%, PASP 65 mm Hg. he is agreeable for [facility] today / card.cath compelted: elevated LVEDP, normal arteries, nonischemic cardiomopathy. plan per card: Lasix to 80 mg twice daily -5 mg dose of metolazonen once today -strict input-output -restrict oral fluid from 9038-4775 mL only (2) Asthma: Code(s): J45.909 - Unspecified asthma, uncomplicated Status: Acute Assessment and Plan: He may need thoracentesis depending on his course. he has scheduled bronchodilators and steroids as well. No indication for antibi otics at this time. continue to monitor resp status (3) Coronary artery disease: Code(s): I25.10 - Atherosclerotic heart disease of [place] coronary artery without angina pectoris Status: Acute Assessment and Plan: see above#1 (4) Hypertension: Code(s): I10 - Essential (primary) hypertension Status: Acute (5) Splenic cyst: Code(s): D73.4 - Cyst of spleen Status: Acute Assessment and Plan: Ultrasound ordered to evaluate ?large bulge? seen in the spleen, previously thought to be related to cysts. ultrasound: Diffuse fatty infiltration of liver. 10.4 x 9.4 x 9.9 cm predominantly echogenic, solid splenic mass. This could reflect large splenic hemangioma. Further evaluation with pre and postcontrast MRI should be considered. (6) Type 2 diabetes mellitus: Code(s): E11.9 - Type 2 diabetes mellitus without complications Status: Acute Assessment and Plan: Initiate sliding scale insulin, Accu-Cheks, and hypoglycemic protocol. Time Spent With Patient Time with patient: Greater than 35 minutes Subjective Date/time seen: 04/16/24 07:36 Interval history: This is a 63-year-old male with asthma, coronary artery disease hypertension, hyperlipidemia, insulin dependent diabetes, and benign prostatic hyperplasia who presented to the emergency department via private vehicle with complaints of worsening dyspnea. Had an open heart surgery in 2000 no bypass grafting done at that time. ED called STEMI based on his EKG review of his EKG it was suggestive of a left bundle branch block. Troponin has been flat He has been diuresing well TTE done shows EF 25-30%, PASP 65 mm Hg. He was reluctant at first but now agreeable for left hear cath procedure- done / cardiology increased diuretic to 80 mg bid, fluid restriction 1651-4854 ml a day. doing well today. no chest pain,no sob Review of Systems Review of Systems: 12 systems were reviewed and are negativ e except for as per HPI. Exam Narrative: General: Well-developed, nontoxic-appearing male in the semi-Alexandre position in bed in no distress. Weight: 124.1 kg. BMI: 41.6. HEENT: PERRL, EOMI. Sclera anicteric. Oral mucosa moist. Crowded oropharynx. Neck: Supple. Exam limited due to neck circumference. Respiratory: Respirations are nonlabored and he is speaking in full sentences. Lung sounds are diminished at the bases with scattered crackles. Occasional expiratory wheezes. Cardiovascular: Regular rate and rhythm with S1-S2. Gastrointestinal: Abdomen is soft, obese, nontender, and nondistended with positive bowel sounds. Skin: Warm and dry. No rash or lesions on limited exam. Extremities: No cyanosis or clubbing. Bilateral lower extremity pitting edema. No palpable knots or cords. Neurological: Alert. Cranial nerves 2-12 are grossly intact. No gross focal deficits to casual conversation. Psychiatric: Pleasant and cooperative with normal mood and affect. Judgment and insight intact. Objective Data Vital Signs Vital Signs: Vital Signs - 24 hr 04/15/24 08:00 04/15/24 08:00 04/15/24 08:50 Temperature 96.6 F L Pulse Rate 52 L 66 Respiratory Rate 16 Blood Pressure 160/80 H Pulse Oximetry 96 Oxygen Delivery Room Air Fraction of Inspired Oxygen 04/15/24 09:11 04/15/24 11:41 04/15/24 12:35 Temperature 97.6 F Pulse Rate 69 67 Respiratory Rate 16 Blood Pressure 150/75 H Pulse Oximetry 95 94 Oxygen Delivery Room Air Fraction of Inspired Oxygen 04/15/24 12:45 04/15/24 13:00 04/15/24 13:15 Temperature 96.7 F L Pulse Rate 73 68 62 Respiratory Rate 16 18 18 Blood Pressure 135/93 H 137/82 126/78 Pulse Oximetry 95 94 95 Oxygen Delivery Room Air Room Air Room Air Fraction of Inspired Oxygen 04/15/24 13:30 04/15/24 13:45 04/15/24 14:00 Temperature Pulse Rate 65 68 70 Respiratory Rate 18 18 20 Blood Pressure 127/104 H 119/82 152/95 H Pulse Oximetry 95 96 94 Oxygen Delivery Room Air Room Air Room Air Fraction of Inspired Oxygen 04/15/24 14:15 04/15/24 14:30 04/15/24 14:45 Temperature Pulse Rate 71 72 67 Respiratory Rate 16 16 16 Blood Pressure 133/88 130/77 125/67 Pulse Oximetry 99 95 96 Oxygen Delivery Room Air Room Air Room Air Fraction of Inspired Oxygen 04/15/24 15:00 04/15/24 15:15 04/15/24 15:30 Temperature Pulse Rate 71 71 67 Respiratory Rate 18 20 18 Blood Pressure 116/52 L 128/61 124/79 Pulse Oximetry 95 95 96 Oxygen Delivery Room Air Room Air Room Air Fraction of Inspired Oxygen 04/15/24 15:45 04/15/24 16:00 04/15/24 16:42 Temperature 97.6 F 96.9 F L Pulse Rate 66 71 78 Respiratory Rate 18 18 18 Blood Pressure 131/87 125/91 H 152/84 H Pulse Oximetry 96 97 98 Oxygen Delivery Room Air Room Air Fraction of Inspired Oxygen 04/15/24 18:00 04/15/24 19:00 04/15/24 20:00 Temperature 97.2 F L 97.4 F L Pulse Rate 74 68 62 Respiratory Rate 16 18 Blood Pressure 144/76 H 147/71 H Pulse Oximetry 97 98 Oxygen Delivery Fraction of Inspired Oxygen 04/15/24 20:00 04/15/24 20:36 04/15/24 22:35 Temperature Pulse Rate 68 Respiratory Rate Blood Pressure Pulse Oximetry 96 Oxygen Delivery Room Air Room Air Fraction of Inspired Oxygen 04/15/24 22:35 04/15/24 22:45 04/15/24 23:40 Temperature Pulse Rate 70 72 71 Respiratory Rate 20 20 17 Blood Pressure Pulse Oximetry 95 Oxygen Delivery Autopap Fraction of Inspired Oxygen 04/15/24 23:43 04/16/24 00:00 04/16/24 03:37 Temperature 98.3 F 98.3 F Pulse Rate 59 L 71 70 Respiratory Rate 18 18 Blood Pressure 132/76 118/74 Pulse Oximetry 97 98 Oxygen Delivery Fraction of Inspired Oxygen 04/16/24 04:00 04/16/24 04:25 04/16/24 04:25 Temperature Pulse Rate 65 68 68 Respiratory Rate 12 12 Blood Pressure Pulse Oximetry 95 Oxygen Delivery Autopap Fraction of Inspired Oxygen Intake/Output Intake/Output: Intake & Output 04/13/24 04/14/24 04/15/24 04/16/24 23:59 23:59 23:59 23:59 Intake Total 3050 1510 1550 Output Total 1325 1600 1425 200 Balance 1725 -90 125 -200 Meds/Results Medications: Active Medications Generic Name Dose Route Start Last Admin Trade Name Freq PRN Reason Stop Dose Admin Acetaminophen 650 mg 04/12/24 18:42 Acetaminophen 325 Mg Tablet PO Q4H PRN Mild Pain (1-3) or Fever Albuterol 1 puff 04/13/24 00:16 Albuterol Sulfate (*Sp) Aerosol 1 Puff INHALATION Q4-6H PRN shortness of breath or wheezin Albuterol/Ipratropium 3 ml 04/13/24 12:39 Ipratropium 0.5 Mg/Albuterol Sulfate 2.5 Mg Ampul.Neb 3 Ml NEBULIZE Q6HRT PRN Shortness Of Breath Or Wheezing Allopurinol 300 mg 04/13/24 09:00 04/15/24 09:10 Allopurinol 300 Mg Tablet PO 300 mg DAILY RAIAN Administration Aspirin 81 mg 04/13/24 13:25 04/15/24 17:08 Aspirin 81 Mg Enteric Tablet PO 81 mg QAM ARIAN Administration Atorvastatin Calcium 80 mg 04/13/24 09:00 04/15/24 09:11 Atorvastatin 40 Mg Tablet PO 80 mg DAILY ARIAN Administration Carvedilol 25 mg 04/14/24 21:00 04/15/24 20:36 Carvedilol 25 Mg Tablet PO 25 mg Q12HR ARIAN Administration Dextrose 12.5 gm 04/12/24 18:42 Dextrose 50% 25 Gm/50 Ml Syringe IV PUSH PRN PRN Hypoglycemia Protocol Dextrose 12.5 gm 04/12/24 20:42 Dextrose 50% 25 Gm/50 Ml Syringe IV PUSH PRN PRN Hypoglycemia Protocol Enoxaparin Sodium 40 mg 04/13/24 09:00 04/15/24 16:02 Enoxaparin 40 Mg/0.4 Ml Syringe SUB-Q Not Given DAILY ARIAN Famotidine 20 mg 04/13/24 09:00 04/15/24 09:12 Famotidine 20 Mg Tablet PO 20 mg DAILY ARIAN Administration Furosemide 80 mg 04/15/24 17:00 04/15/24 17:08 Furosemide Inj 100 Mg/10 Ml Vial IV PUSH 80 mg BID ARIAN Administration Glucagon 1 mg 04/12/24 18:42 Glucagon For Inj 1 Mg Vial IM PRN PRN Hypoglycemia Protocol Glucagon 1 mg 04/12/24 20:42 Glucagon For Inj 1 Mg Vial IM PRN PRN Hypoglycemia Protocol Glucose 15 gm 04/12/24 18:42 Glucose Oral Gel 15 Gm Of Glucse In 37.5 Gm Tube PO PRN PRN Hypoglycemia Protocol Glucose 15 gm 04/12/24 20:42 Glucose Oral Gel 15 Gm Of Glucse In 37.5 Gm Tube PO PRN PRN Hypoglycemia Protocol Hydrocortisone 1 applic 04/12/24 23:28 Hydrocortisone 2.5% Cream 30 Gm Tube TOPICAL TID PRN itching Dextrose 1,000 mls @ 100 mls/hr 04/12/24 20:42 Dextrose 5% 1,000 Ml IVPB PRN PRN Hypoglycemia Protocol Insulin Aspart 3 - 6 units 04/13/24 08:00 04/15/24 17:09 Insulin Aspart (*Bkc) 100 Units/Ml SUB-Q 4 units TIDWM ARIAN Administration Protocol Insulin Aspart 1 - 3 units 04/12/24 21:00 04/15/24 20:37 Insulin Aspart (*Bkc) 100 Units/Ml SUB-Q 2 units HS ARIAN Administration Protocol Insulin Aspart 16 units 04/13/24 09:00 04/15/24 17:09 Insulin Aspart (*Bkc) 100 Units/Ml SUB-Q 16 units TID ARIAN Administration Insulin Glargine 40 units 04/13/24 09:00 04/15/24 16:15 Insulin Glargine (*Bkc) 100 Units/Ml SUB-Q Not Given DAILY ARIAN Ipratropium [place] 0.5 mg 04/12/24 20:00 04/16/24 07:20 Ipratropium Br 0.02% Inh Soln 0.5 Mg/2.5 Ml Vial INHALATION 0.5 mg Q6HRT ARIAN Administration Montelukast Sodium 10 mg 04/13/24 09:00 04/15/24 09:12 Montelukast Sodium 10 Mg Tablet PO 10 mg DAILY ARIAN Administration Ondansetron HCl 4 mg 04/12/24 18:42 Ondansetron Inj 4 Mg/2 Ml Vial IV PUSH Q4H PRN Nausea Pantoprazole Sodium 20 mg 04/13/24 09:00 04/15/24 09:12 Pantoprazole Sod Sesquihydrate 20 Mg Tab PO 20 mg DAILY ARIAN Administration Polyethylene Glycol 17 gm 04/13/24 13:38 Polyethylene Glycol 3350 17 Gm Powd.Pack PO QAM PRN Constipation Potassium Chloride 40 meq 04/13/24 09:00 04/15/24 09:04 Potassium Chloride 20 Meq Packet (For Liquid) PO 04/16/24 09:00 Not Given DAILY ARIAN Prednisone 40 mg 04/13/24 08:00 04/15/24 09:09 Prednisone 20 Mg Tablet PO 04/17/24 07:59 40 mg DAILY@0800 ARIAN Administration Fluticasone/Salmeterol 2 puff 04/13/24 08:00 04/16/24 07:20 Fluticasone/Salmeterol 230-21 Mcg Inhaler 1 Puff INHALATION 2 puff Q12HRT ARIAN Administration Spironolactone 25 mg 04/13/24 09:00 04/15/24 17:08 Spironolactone 25 Mg Tablet PO 25 mg DAILY ARIAN Administration Tamsulosin HCl 0.4 mg 04/13/24 21:00 04/15/24 20:37 Tamsulosin Hcl 0.4 Mg Capsule PO 0.4 mg HS ARIAN Administration Valsartan 160 mg 04/13/24 09:00 04/15/24 17:08 Valsartan 160 Mg Tablet PO 160 mg BID ARIAN Administration Radiology Results: ITS Impressions Chest X-Ray 04/12/24 16:59 IMPRESSION: 1. Mild pulmonary edema. 2. Small pleural effusions. 3. Cardiomegaly. Chest CTA 04/12/24 18:40 IMPRESSION: 1. No pulmonary embolism. 2. Bilateral moderate pleural effusion with adjacent atelectasis versus pneumonia. 3. Large bulge seen in the spleen unchanged from previous examination. Further evaluation advised to exclude a mass. Abscess or hematoma is less likely although cannot be excluded. Abdomen Ultrasound 04/13/24 08:08 Impression: Diffuse fatty infiltration of liver. 10.4 x 9.4 x 9.9 cm predominantly echogenic, solid splenic mass. This could reflect large splenic hemangioma. Further evaluation with pre and postcontrast MRI should be considered. Labs Labs: Laboratory Results - last 24 hr 04/15/24 04/15/24 04/15/24 07:57 11:24 16:59 POC Capillary Glucose 103 104 268 H 04/15/24 19:34 POC Capillary Glucose 336 H Quality VTE Prophylaxis VTE prophylaxis: pharmacologic ordered
[2024-04-16 07:57] LABS: Glucose Point of Care 139 mg/dl (65-105)
[2024-04-16 08:48] LABS: Hematocrit 39.3 % (42.0-52.0); Hemoglobin 12.8 g/dL (14.0-18.0); Mean Corpuscular HGB Conc 32.6 g/dl (32-36); Mean Corpuscular Hemoglobin 26.1 pg (26-34); Mean Corpuscular Volume 80.2 fl (80-100); Mean Platelet Volume 11.5 fl (7.4-10.4); Platelet Count Result 183 k/mm3 (150-375); Red Cell Distribution Width 15.5 % (11.5-14.5); White Blood Count 8.1 K/mm3 (4.5-10.0)
[2024-04-16] MEDS: ATORVASTATIN 40 MG TABLET 80 MG PO (08:52)
[2024-04-16] MEDS: predniSONE 20 MG TABLET 40 MG PO (08:52)
[2024-04-16] MEDS: FAMOTIDINE 20 MG TABLET PO (08:52)
[2024-04-16] MEDS: ASPIRIN 81 MG ENTERIC TABLET PO (08:52)
[2024-04-16] MEDS: allopurinoL 300 MG TABLET PO (08:52)
[2024-04-16] MEDS: PANTOPRAZOLE SOD SESQUIHYDRATE 20 MG TAB PO (08:53)
[2024-04-16] MEDS: VALSARTAN 160 MG TABLET PO ×2 (08:53→18:08)
[2024-04-16] MEDS: SPIRONOLACTONE 25 MG TABLET PO (08:53)
[2024-04-16] MEDS: MONTELUKAST SODIUM 10 MG TABLET PO (08:53)
[2024-04-16] MEDS: carvediloL 25 MG TABLET PO ×2 (08:53→21:46)
[2024-04-16] MEDS: INSULIN GLARGINE (*BKC) 100 UNITS/ML 40 UNITS SUB-Q (08:54)
[2024-04-16] MEDS: FUROSEMIDE INJ 100 MG/10 ML VIAL 80 MG IV PUSH ×2 (08:54→18:07)
[2024-04-16] MEDS: ENOXAPARIN 40 MG/0.4 ML SYRINGE SUB-Q (08:54)
[2024-04-16] MEDS: INSULIN ASPART (*BKC) 100 UNITS/ML 16 UNITS SUB-Q ×3 (08:55→18:08)
[2024-04-16] MEDS: POTASSIUM CHLORIDE 20 MEQ PACKET (FOR LIQUID) 40 MEQ PO (08:55)
[2024-04-16 09:29] LABS: Anion Gap 4 mmol/L (4-12); Blood Urea Nitrogen 32 mg/dL (9-20); Calcium 9.2 mg/dL (8.4-10.2); Carbon Dioxide 29 mmol/L (22-30); Chloride 102 mmol/L (98-107); Estimated CRCL calculation 56 ml/min; Estimated Glomerular Filt Rate 53; Glucose 134 mg/dL (65-110); Potassium 3.7 mmol/L (3.4-5.0); Sodium 135 mmol/L (137-145)
[2024-04-16 11:42] LABS: Glucose Point of Care 185 mg/dl (65-105)
[2024-04-16] MEDS: polyethylene glycoL 3350 17 GM POWD.PACK PO (13:14)
--- NOTE | 2024-04-16 17:04 | PM.PNCARD ---
Progress Note: A&P Assessment and Plan (1) Congestive heart failure: Qualifiers: Heart failure chronicity: acute on chronic Heart failure type: unspecified Qualified Code(s): I50.9 - Heart failure, unspecified Code(s): I50.9 - Heart failure, unspecified Status: Acute (2) NICM (nonischemic cardiomyopathy): Code(s): I42.8 - Other cardiomyopathies Status: Acute Plan Acute on chronic CHF NYHA II-III, stage C EF 25-30% Nonischemic cardiomyopathy 2. History of open heart surgery 3. Type 2 [place] 4. Hypertension 5. Hyperlipidemia -continue IV diuresis, 1 more dose of metolazone today -restrict total fluid from 2062-4394 mL only -continue aspirin, statin -continue beta-bee, ARB, spironolactone at current doses Subjective Date/time seen: 04/16/24 17:04 Interval history: Feels much better in terms of bleeding no more cough or dyspnea Left heart catheterization showed nonischemic cardiomyopathy with elevated LVEDP Good urine output Renal function stable Review of Systems Review of Systems: 12 systems were reviewed and are negative except for as per HPI. All systems reviewed & are unremarkable except as noted in HPI and below Constitutional: Constitutional: Reports no additional constitutional complaints Eyes: Eyes: Reports no additional eye complaints ENT: Reports system reviewed and no additional complaints, except as documented Cardiovascular: Cardiovascular: Reports no additional cardiovascular complaints Respiratory: Respiratory: Reports as per HPI Gastrointestinal: Gastrointestinal: Reports no additional gastrointestinal complaints Musculoskeletal: Musculoskeletal: Reports no additional musculoskeletal complaints Neurologic: Reports system reviewed and no additional complaints, except as documented Exam Narrative: General: Well-developed, nontoxic-appearing male in the semi-Alexandre position in bed in no distress. Weight: 124.1 kg. BMI: 41.6. HEENT: PERRL, EOMI. Sclera anicteric. Oral mucosa moist. Crowded oropharynx. Neck: Supple. Exam limited due to neck circumference. Respiratory: Respirations are nonlabored and he is speaking in full sentences. Lung sounds are diminished at the bases with scattered crackles. Occasional expiratory wheezes. Cardiovascular: Regular rate and rhythm with S1-S2. Gastrointestinal: Abdomen is soft, obese, nontender, and nondistended with positive bowel sounds. Skin: Warm and dry. No rash or lesions on limited exam. Extremities: No cyanosis or clubbing. Bilateral lower extremity pitting edema. No palpable knots or cords. Neurological: Alert. Cranial nerves 2-12 are grossly intact. No gross focal deficits to casual conversation. Psychiatric: Pleasant and cooperative with normal mood and affect. Judgment and insight intact. Objective Data Vital Signs Vital Signs: Vital Signs - 24 hr 04/15/24 18:00 04/15/24 19:00 04/15/24 20:00 Temperature 36.2 C L 36.3 C L Pulse Rate 74 68 62 Respiratory Rate 16 18 Blood Pressure 144/76 H 147/71 H Pulse Oximetry 97 98 Oxygen Delivery 04/15/24 20:00 04/15/24 20:36 04/15/24 22:35 Temperature Pulse Rate 68 Respiratory Rate Blood Pressure Pulse Oximetry 96 Oxygen Delivery Room Air Room Air 04/15/24 22:35 04/15/24 22:45 04/15/24 23:40 Temperature Pulse Rate 70 72 71 Respiratory Rate 20 20 17 Blood Pressure Pulse Oximetry 95 Oxygen Delivery Autopap 04/15/24 23:43 04/16/24 00:00 04/16/24 03:37 Temperature 36.8 C 36.8 C Pulse Rate 59 L 71 70 Respiratory Rate 18 18 Blood Pressure 132/76 118/74 Pulse Oximetry 97 98 Oxygen Delivery 04/16/24 04:00 04/16/24 04:25 04/16/24 04:25 Temperature Pulse Rate 65 68 68 Respiratory Rate 12 12 Blood Pressure Pulse Oximetry 95 Oxygen Delivery Autopap 04/16/24 07:20 04/16/24 07:20 04/16/24 07:30 Temperature Pulse Rate 70 70 71 Respiratory Rate 18 18 18 Blood Pressure Pulse Oximetry 97 Oxygen Delivery Room Air 04/16/24 07:56 04/16/24 08:00 04/16/24 08:53 Temperature 36.3 C L Pulse Rate 68 70 70 Respiratory Rate 18 Blood Pressure 131/78 Pulse Oximetry 100 Oxygen Delivery 04/16/24 09:00 04/16/24 12:00 04/16/24 12:15 Temperature 36.3 C L Pulse Rate 64 63 Respiratory Rate 18 Blood Pressure 123/73 Pulse Oximetry 99 Oxygen Delivery Room Air 04/16/24 13:22 04/16/24 13:32 Temperature Pulse Rate 66 65 Respiratory Rate 18 18 Blood Pressure Pulse Oximetry Oxygen Delivery Intake/Output Intake/Output: Intake & Output 12/31/24 01/01/25 01/02/25 01/03/25 23:59 23:59 23:59 23:59 Intake Total 3050 1510 1550 480 Output Total 1325 1600 1425 2400 Balance 1725 -90 125 -1920 Meds/Results Medications: Active Medications Generic Name Dose Route Start Last Admin Trade Name Freq PRN Reason Stop Dose Admin Acetaminophen 650 mg 04/12/24 18:42 Acetaminophen 325 Mg Tablet PO Q4H PRN Mild Pain (1-3) or Fever Albuterol 1 puff 04/13/24 00:16 Albuterol Sulfate (*Sp) Aerosol 1 Puff INHALATION Q4-6H PRN shortness of breath or wheezin Albuterol/Ipratropium 3 ml 04/13/24 12:39 Ipratropium 0.5 Mg/Albuterol Sulfate 2.5 Mg Ampul.Neb 3 Ml NEBULIZE Q6HRT PRN Shortness Of Breath Or Wheezing Allopurinol 300 mg 04/13/24 09:00 04/16/24 08:52 Allopurinol 300 Mg Tablet PO 300 mg DAILY ARIAN Administration Aspirin 81 mg 04/13/24 13:25 04/16/24 08:52 Aspirin 81 Mg Enteric Tablet PO 81 mg QAM ARIAN Administration Atorvastatin Calcium 80 mg 04/13/24 09:00 04/16/24 08:52 Atorvastatin 40 Mg Tablet PO 80 mg DAILY ARIAN Administration Carvedilol 25 mg 04/14/24 21:00 04/16/24 08:53 Carvedilol 25 Mg Tablet PO 25 mg Q12HR ARIAN Administration Dextrose 12.5 gm 04/12/24 20:42 Dextrose 50% 25 Gm/50 Ml Syringe IV PUSH PRN PRN Hypoglycemia Protocol Enoxaparin Sodium 40 mg 04/13/24 09:00 04/16/24 08:54 Enoxaparin 40 Mg/0.4 Ml Syringe SUB-Q 40 mg DAILY ARIAN Administration Famotidine 20 mg 04/13/24 09:00 04/16/24 08:52 Famotidine 20 Mg Tablet PO 20 mg DAILY ARIAN Administration Furosemide 80 mg 04/15/24 17:00 04/16/24 08:54 Furosemide Inj 100 Mg/10 Ml Vial IV PUSH 80 mg BID ARIAN Administration Glucagon 1 mg 04/12/24 18:42 Glucagon For Inj 1 Mg Vial IM PRN PRN Hypoglycemia Protocol Glucose 15 gm 04/12/24 18:42 Glucose Oral Gel 15 Gm Of Glucse In 37.5 Gm Tube PO PRN PRN Hypoglycemia Protocol Hydrocortisone 1 applic 04/12/24 23:28 Hydrocortisone 2.5% Cream 30 Gm Tube TOPICAL TID PRN itching Dextrose 1,000 mls @ 100 mls/hr 04/12/24 20:42 Dextrose 5% 1,000 Ml IVPB PRN PRN Hypoglycemia Protocol Insulin Aspart 3 - 6 units 04/13/24 08:00 04/16/24 13:11 Insulin Aspart (*Bkc) 100 Units/Ml SUB-Q Not Given TIDWM ARIAN Protocol Insulin Aspart 1 - 3 units 04/12/24 21:00 04/15/24 20:37 Insulin Aspart (*Bkc) 100 Units/Ml SUB-Q 2 units HS ARIAN Administration Protocol Insulin Aspart 16 units 04/13/24 09:00 04/16/24 13:12 Insulin Aspart (*Bkc) 100 Units/Ml SUB-Q 16 units TID ARIAN Administration Insulin Glargine 40 units 04/13/24 09:00 04/16/24 08:54 Insulin Glargine (*Bkc) 100 Units/Ml SUB-Q 40 units DAILY ARIAN Administration Ipratropium [place] 0.5 mg 04/12/24 20:00 04/16/24 13:40 Ipratropium Br 0.02% Inh Soln 0.5 Mg/2.5 Ml Vial INHALATION 0.5 mg Q6HRT ARIAN Administration Montelukast Sodium 10 mg 04/13/24 09:00 04/16/24 08:53 Montelukast Sodium 10 Mg Tablet PO 10 mg DAILY ARIAN Administration Ondansetron HCl 4 mg 04/12/24 18:42 Ondansetron Inj 4 Mg/2 Ml Vial IV PUSH Q4H PRN Nausea Pantoprazole Sodium 20 mg 04/13/24 09:00 04/16/24 08:53 Pantoprazole Sod Sesquihydrate 20 Mg Tab PO 20 mg DAILY ARIAN Administration Polyethylene Glycol 17 gm 04/16/24 11:20 04/16/24 13:14 Polyethylene Glycol 3350 17 Gm Powd.Pack PO 17 gm QAM PRN Administration Constipation Prednisone 40 mg 04/13/24 08:00 04/16/24 08:52 Prednisone 20 Mg Tablet PO 04/17/24 07:59 40 mg DAILY@0800 ARIAN Administration Fluticasone/Salmeterol 2 puff 04/13/24 08:00 04/16/24 07:20 Fluticasone/Salmeterol 230-21 Mcg Inhaler 1 Puff INHALATION 2 puff Q12HRT ARIAN Administration Spironolactone 25 mg 04/13/24 09:00 04/16/24 08:53 Spironolactone 25 Mg Tablet PO 25 mg DAILY ARIAN Administration Tamsulosin HCl 0.4 mg 04/13/24 21:00 04/15/24 20:37 Tamsulosin Hcl 0.4 Mg Capsule PO 0.4 mg HS ARIAN Administration Valsartan 160 mg 04/13/24 09:00 04/16/24 08:53 Valsartan 160 Mg Tablet PO 160 mg BID ARIAN Administration Radiology Results: ITS Impressions Chest X-Ray 04/12/24 16:59 IMPRESSION: 1. Mild pulmonary edema. 2. Small pleural effusions. 3. Cardiomegaly. Chest CTA 04/12/24 18:40 IMPRESSION: 1. No pulmonary embolism. 2. Bilateral moderate pleural effusion with adjacent atelectasis versus pneumonia. 3. Large bulge seen in the spleen unchanged from previous examination. Further evaluation advised to exclude a mass. Abscess or hematoma is less likely although cannot be excluded. Abdomen Ultrasound 04/13/24 08:08 Impression: Diffuse fatty infiltration of liver. 10.4 x 9.4 x 9.9 cm predominantly echogenic, solid splenic mass. This could reflect large splenic hemangioma. Further evaluation with pre and postcontrast MRI should be considered. Labs Labs: Laboratory Results - last 24 hr 04/15/24 04/15/24 04/16/24 16:59 19:34 07:36 WBC RBC Hgb Hct MCV MCH MCHC RDW Plt Count MPV % Immature Plt Fraction Sodium Potassium Chloride Carbon Dioxide Anion Gap BUN Creatinine Estim Creat Clear Calc Estimated GFR Glucose POC Capillary Glucose 268 H 336 H 139 H Calcium 04/16/24 04/16/24 04/16/24 08:26 08:30 11:38 WBC 8.1 Cancelled RBC 4.90 Cancelled Hgb 12.8 L Cancelled Hct 39.3 L Cancelled MCV 80.2 Cancelled MCH 26.1 Cancelled MCHC 32.6 Cancelled RDW 15.5 H Cancelled Plt Count 183 Cancelled MPV 11.5 H Cancelled % Immature Plt Fraction Cancelled Sodium 135 L Cancelled Potassium 3.7 Cancelled Chloride 102 Cancelled Carbon Dioxide 29 Cancelled Anion Gap 4 Cancelled BUN 32 H Cancelled Creatinine 1.60 H Cancelled Estim Creat Clear Calc 56 Cancelled Estimated GFR 53 L Cancelled Glucose 134 H Cancelled POC Capillary Glucose 185 H Calcium 9.2 Cancelled
[2024-04-16 17:30] LABS: Glucose Point of Care 152 mg/dl (65-105)
[2024-04-16] MEDS: metOLazone 5 MG TABLET PO (18:07)
[2024-04-16 21:06] LABS: Glucose Point of Care 215 mg/dl (65-105)
[2024-04-16] MEDS: INSULIN ASPART (*BKC) 100 UNITS/ML SUB-Q (21:45)
[2024-04-16] MEDS: TAMSULOSIN HCL 0.4 MG CAPSULE PO (21:46)
[2024-04-17] VITALS (17 sets, daily range): BP systolic 120–150; BP diastolic 53–89; PULSE 58–99; RESP 16–18; TEMP 36.4–37.1; O2SAT 95–100
[2024-04-17] MEDS: IPRATROPIUM BR 0.02% INH SOLN 0.5 MG/2.5 ML VIAL INHALATION ×3 (02:42→20:43)
[2024-04-17] MEDS: WATER FOR IRRIGATION, STERILE 1,000 ML BOTTLE 1000 ML (05:34)
[2024-04-17 06:07] LABS: Hematocrit 40.8 % (42.0-52.0); Hemoglobin 12.8 g/dL (14.0-18.0); Mean Corpuscular HGB Conc 31.4 g/dl (32-36); Mean Corpuscular Hemoglobin 25.6 pg (26-34); Mean Corpuscular Volume 81.6 fl (80-100); Mean Platelet Volume 12.1 fl (7.4-10.4); Platelet Count Result 183 k/mm3 (150-375); Red Cell Distribution Width 15.4 % (11.5-14.5); White Blood Count 8.6 K/mm3 (4.5-10.0)
[2024-04-17 06:15] LABS: Potassium 3.6 mmol/L (3.4-5.0)
[2024-04-17 06:19] LABS: Anion Gap 6 mmol/L (4-12); Blood Urea Nitrogen 40 mg/dL (9-20); Calcium 9.3 mg/dL (8.4-10.2); Carbon Dioxide 28 mmol/L (22-30); Chloride 100 mmol/L (98-107); Estimated CRCL calculation 53 ml/min; Estimated Glomerular Filt Rate 50; Glucose 107 mg/dL (65-110); Potassium 3.6 mmol/L (3.4-5.0); Sodium 134 mmol/L (137-145)
[2024-04-17 06:44] LABS: Glucose Point of Care 118 mg/dl (65-105)
[2024-04-17] MEDS: FLUTICASONE/SALMETEROL 230-21 MCG INHALER 1 PUFF 2 PUFF INHALATION ×2 (07:51→20:43)
[2024-04-17 08:40] LABS: Glucose Point of Care 107 mg/dl (65-105)
[2024-04-17] MEDS: allopurinoL 300 MG TABLET PO (10:24)
[2024-04-17] MEDS: ASPIRIN 81 MG ENTERIC TABLET PO (10:24)
[2024-04-17] MEDS: carvediloL 25 MG TABLET PO ×2 (10:24→21:56)
[2024-04-17] MEDS: ATORVASTATIN 40 MG TABLET 80 MG PO (10:24)
[2024-04-17] MEDS: FAMOTIDINE 20 MG TABLET PO (10:25)
[2024-04-17] MEDS: PANTOPRAZOLE SOD SESQUIHYDRATE 20 MG TAB PO (10:25)
[2024-04-17] MEDS: VALSARTAN 160 MG TABLET PO ×2 (10:25→17:41)
[2024-04-17] MEDS: SPIRONOLACTONE 25 MG TABLET PO (10:25)
[2024-04-17] MEDS: MONTELUKAST SODIUM 10 MG TABLET PO (10:25)
[2024-04-17] MEDS: ENOXAPARIN 40 MG/0.4 ML SYRINGE SUB-Q (10:29)
[2024-04-17 12:39] LABS: Glucose Point of Care 255 mg/dl (65-105)
[2024-04-17] MEDS: INSULIN ASPART (*BKC) 100 UNITS/ML 16 UNITS SUB-Q ×2 (13:11→17:41)
[2024-04-17] MEDS: INSULIN ASPART (*BKC) 100 UNITS/ML SUB-Q ×2 (13:11→17:41)
--- NOTE | 2024-04-17 14:52 | P.PNIM_ITS ---
Progress Note: A&P Assessment and Plan (1) CHF exacerbation: Code(s): I50.9 - Heart failure, unspecified Status: Acute Assessment and Plan: The patient presented to the emergency department for evaluation of shortness of breath and wheezing Labs, imaging, EKG, and all reports were reviewed. Symptoms have been ongoing for couple of months but worse most recently. CT scan shows bilateral pleural effusions which are likely the cause of a shortness of breath in addition to asthma. cardiology consulted, notes reviewed: He has a history of open heart surgery, details of which are not known. he denies any CABG done during that time - It is my clinical impression that he has decompensated HF and the troponin elevation is secondary to type 2 CT - No need for heparin infusion - Echo to assess LV systolic function and wall motion - Will continue to diureses him; one dose of 5 mg Metolazone today, continue IV diuresis - Monitor and optimize anti-hypertensives - Start ASA 81; continue statin, and BB Troponin is mildly elevated and will be trended. He does have a history of coronary artery disease but is not complaining of any chest pain. Monitor on telemetry. Echocardiogram ordered. - will decrease lasix to daily from BID as kidney function worsen 1/2- cardiology following. TTE done shows EF 25-30%, PASP 65 mm Hg. he is agreeable for [facility] today / card.cath compelted: elevated LVEDP, normal arteries, nonischemic cardiomopathy. plan per card: Lasix to 80 mg twice daily -5 mg dose of metolazonen once today -strict input-output -restrict oral fluid from 3529-2262 mL only 1/4 diuresed very well. restricted intake. awaiting for cards today to see pt fir further diuretic recommendations. (2) Asthma: Code(s): J45.909 - Unspecified asthma, uncomplicated Status: Acute Assessment and Plan: He may need thoracentesis depending on his course. he has scheduled bronchodilators and steroids as well. No indication for antibiotics at this time. continue to monitor resp status (3) Coronary artery disease: Code(s): I25.10 - Atherosclerotic heart disease of [place] coronary artery without angina pectoris Status: Acute Assessment and Plan: see above#1 (4) Hypertension: Code(s): I10 - Essential (primary) hypertension Status: Acute (5) Splenic cyst: Code(s): D73.4 - Cyst of spleen Status: Acute Assessment and Plan: Ultrasound ordered to evaluate ?large bulge? seen in the spleen, previously thought to be related to cysts. ultrasound: Diffuse fatty infiltration of liver. 10.4 x 9.4 x 9.9 cm predominantly echogenic, solid splenic mass. This could reflect large splenic hemangioma. Further evaluation with pre and postcontrast MRI should be considered. (6) Type 2 diabetes mellitus: Code(s): E11.9 - Type 2 diabetes mellitus without complications Status: Acute Assessment and Plan: Initiate sliding scale insulin, Accu-Cheks, and hypoglycemic protocol. Time Spent With Patient Time with patient: 25 - 35 minutes Subjective Date/time seen: 04/17/24 14:52 Interval history: pt is seen and examined. feeling fine- not much appetite as does not like Good urine output Renal function slightly worsen. Review of Systems Review of Systems: 12 systems were reviewed and are negativ e except for as per HPI. Exam Narrative: General: Well-developed, nontoxic-appearing male in the semi-Alexandre position in bed in no distress. Weight: 124.1 kg. BMI: 41.6. HEENT: PERRL, EOMI. Sclera anicteric. Oral mucosa moist. Crowded oropharynx. Neck: Supple. Exam limited due to neck circumference. Respiratory: Respirations are nonlabored and he is speaking in full sentences. Lung sounds are diminished at the bases with scattered crackles. Occasional expiratory wheezes. Cardiovascular: Regular rate and rhythm with S1-S2. Gastrointestinal: Abdomen is soft, obese, nontender, and nondistended with positive bowel sounds. Skin: Warm and dry. No rash or lesions on limited exam. Extremities: No cyanosis or clubbing. Bilateral lower extremity pitting edema. No palpable knots or cords. Neurological: Alert. Cranial nerves 2-12 are grossly intact. No gross focal deficits to casual conversation. Psychiatric: Pleasant and cooperative with normal mood and affect. Judgment and insight intact. Objective Data Vital Signs Vital Signs: Vital Signs - 24 hr 04/16/24 16:00 04/16/24 16:00 04/16/24 20:00 Temperature 97.4 F L 98.2 F Pulse Rate 65 657 H 63 Respiratory Rate 18 18 Blood Pressure 121/69 137/76 Pulse Oximetry 100 96 Oxygen Delivery Fraction of Inspired Oxygen 04/16/24 20:00 04/16/24 20:00 04/16/24 21:20 Temperature Pulse Rate 70 Respiratory Rate Blood Pressure Pulse Oximetry 95 Oxygen Delivery Room Air Room Air Fraction of Inspired Oxygen 04/16/24 21:20 04/16/24 21:25 04/16/24 21:46 Temperature Pulse Rate 62 68 70 Respiratory Rate 18 18 Blood Pressure Pulse Oximetry Oxygen Delivery Fraction of Inspired Oxygen 04/16/24 23:45 04/17/24 00:00 04/17/24 00:00 Temperature 98.8 F Pulse Rate 63 86 67 Respiratory Rate 14 18 Blood Pressure 127/56 L Pulse Oximetry 98 Oxygen Delivery Autopap Fraction of Inspired Oxygen 04/17/24 02:42 04/17/24 02:53 04/17/24 04:00 Temperature 98.2 F Pulse Rate 62 60 79 Respiratory Rate 18 Blood Pressure 150/75 H Pulse Oximetry 95 Oxygen Delivery Fraction of Inspired Oxygen 04/17/24 04:00 04/17/24 06:21 04/17/24 07:49 Temperature 97.5 F L Pulse Rate 64 71 Respiratory Rate 18 Blood Pressure 129/53 L Pulse Oximetry 96 95 Oxygen Delivery Room Air Fraction of Inspired Oxygen 21 04/17/24 07:49 04/17/24 08:00 04/17/24 08:00 Temperature 97.8 F Pulse Rate 68 99 67 Respiratory Rate 18 16 18 Blood Pressure 148/82 H Pulse Oximetry 97 Oxygen Delivery Fraction of Inspired Oxygen 04/17/24 08:00 04/17/24 10:24 04/17/24 10:30 Temperature Pulse Rate 66 74 Respiratory Rate Blood Pressure Pulse Oximetry Oxygen Delivery Room Air Fraction of Inspired Oxygen 04/17/24 12:00 Temperature Pulse Rate 75 Respiratory Rate Blood Pressure Pulse Oximetry Oxygen Delivery Fraction of Inspired Oxygen Intake/Output Intake/Output: Intake & Output 04/14/24 04/15/24 04/16/24 04/17/24 23:59 23:59 23:59 23:59 Intake Total 1510 1550 720 0 Output Total 1600 1425 3800 1790 Balance -90 706 -0133 -1049 Meds/Results Medications: Active Medications Generic Name Dose Route Start Last Admin Trade Name Freq PRN Reason Stop Dose Admin Acetaminophen 650 mg 04/12/24 18:42 Acetaminophen 325 Mg Tablet PO Q4H PRN Mild Pain (1-3) or Fever Albuterol 1 puff 04/13/24 00:16 Albuterol Sulfate (*Sp) Aerosol 1 Puff INHALATION Q4-6H PRN shortness of breath or wheezin Albuterol/Ipratropium 3 ml 04/13/24 12:39 Ipratropium 0.5 Mg/Albuterol Sulfate 2.5 Mg Ampul.Neb 3 Ml NEBULIZE Q6HRT PRN Shortness Of Breath Or Wheezing Allopurinol 300 mg 04/13/24 09:00 04/17/24 10:24 Allopurinol 300 Mg Tablet PO 300 mg DAILY ARIAN Administration Aspirin 81 mg 04/13/24 13:25 04/17/24 10:24 Aspirin 81 Mg Enteric Tablet PO 81 mg QAM ARIAN Administration Atorvastatin Calcium 80 mg 04/13/24 09:00 04/17/24 10:24 Atorvastatin 40 Mg Tablet PO 80 mg DAILY ARIAN Administration Carvedilol 25 mg 04/14/24 21:00 04/17/24 10:24 Carvedilol 25 Mg Tablet PO 25 mg Q12HR ARIAN Administration Dextrose 12.5 gm 04/12/24 20:42 Dextrose 50% 25 Gm/50 Ml Syringe IV PUSH PRN PRN Hypoglycemia Protocol Enoxaparin Sodium 40 mg 04/13/24 09:00 04/17/24 10:29 Enoxaparin 40 Mg/0.4 Ml Syringe SUB-Q 40 mg DAILY ARIAN Administration Famotidine 20 mg 04/13/24 09:00 04/17/24 10:25 Famotidine 20 Mg Tablet PO 20 mg DAILY ARIAN Administration Furosemide 20 mg/ Furosemide 60 mg 04/17/24 17:00 40 mg PO BID ARIAN Glucagon 1 mg 04/12/24 18:42 Glucagon For Inj 1 Mg Vial IM PRN PRN Hypoglycemia Protocol Glucose 15 gm 04/12/24 18:42 Glucose Oral Gel 15 Gm Of Glucse In 37.5 Gm Tube PO PRN PRN Hypoglycemia Protocol Hydrocortisone 1 applic 04/12/24 23:28 Hydrocortisone 2.5% Cream 30 Gm Tube TOPICAL TID PRN itching Dextrose 1,000 mls @ 100 mls/hr 04/12/24 20:42 Dextrose 5% 1,000 Ml IVPB PRN PRN Hypoglycemia Protocol Insulin Aspart 3 - 6 units 04/13/24 08:00 04/17/24 13:11 Insulin Aspart (*Bkc) 100 Units/Ml SUB-Q 4 units TIDWM ARIAN Administration Protocol Insulin Aspart 1 - 3 units 04/12/24 21:00 04/16/24 21:45 Insulin Aspart (*Bkc) 100 Units/Ml SUB-Q 1 units HS ARIAN Administration Protocol Insulin Aspart 16 units 04/17/24 12:00 04/17/24 13:11 Insulin Aspart (*Bkc) 100 Units/Ml SUB-Q 16 units TIDWM ARIAN Administration Insulin Glargine 10 units 04/18/24 09:00 Insulin Glargine (*Bkc) 100 Units/Ml SUB-Q DAILY ARIAN Ipratropium [place] 0.5 mg 04/12/24 20:00 04/17/24 14:10 Ipratropium Br 0.02% Inh Soln 0.5 Mg/2.5 Ml Vial INHALATION Not Given Q6HRT ARIAN Montelukast Sodium 10 mg 04/13/24 09:00 04/17/24 10:25 Montelukast Sodium 10 Mg Tablet PO 10 mg DAILY [facility] Administration Ondansetron HCl 4 mg 04/12/24 18:42 Ondansetron Inj 4 Mg/2 Ml Vial IV PUSH Q4H PRN Nausea Pantoprazole Sodium 20 mg 04/13/24 09:00 04/17/24 10:25 Pantoprazole Sod Sesquihydrate 20 Mg Tab PO 20 mg DAILY ARIAN Administration Polyethylene Glycol 17 gm 04/16/24 11:20 04/16/24 13:14 Polyethylene Glycol 3350 17 Gm Powd.Pack PO 17 gm QAM PRN Administration Constipation Fluticasone/Salmeterol 2 puff 04/13/24 08:00 04/17/24 07:51 Fluticasone/Salmeterol 230-21 Mcg Inhaler 1 Puff INHALATION 2 puff Q12HRT [facility] Administration Spironolactone 25 mg 04/13/24 09:00 04/17/24 10:25 Spironolactone 25 Mg Tablet PO 25 mg DAILY ARIAN Administration Tamsulosin HCl 0.4 mg 04/13/24 21:00 04/16/24 21:46 Tamsulosin Hcl 0.4 Mg Capsule PO 0.4 mg HS [facility] Administration Valsartan 160 mg 04/13/24 09:00 04/17/24 10:25 Valsartan 160 Mg Tablet PO 160 mg BID ARIAN Administration Radiology Results: ITS Impressions Chest X-Ray 04/12/24 16:59 IMPRESSION: 1. Mild pulmonary edema. 2. Small pleural effusions. 3. Cardiomegaly. Chest CTA 04/12/24 18:40 IMPRESSION: 1. No pulmonary embolism. 2. Bilateral moderate pleural effusion with adjacent atelectasis versus pneumonia. 3. Large bulge seen in the spleen unchanged from previous examination. Further evaluation advised to exclude a mass. Abscess or hematoma is less likely although cannot be excluded. Abdomen Ultrasound 04/13/24 08:08 Impression: Diffuse fatty infiltration of liver. 10.4 x 9.4 x 9.9 cm predominantly echogenic, solid splenic mass. This could reflect large splenic hemangioma. Further evaluation with pre and postcontrast MRI should be considered. Labs Labs: Laboratory Results - last 24 hr 04/16/24 04/16/24 04/17/24 17:24 20:13 05:23 WBC 8.6 RBC 5.00 Hgb 12.8 L Hct 40.8 L MCV 81.6 MCH 25.6 L MCHC 31.4 L RDW 15.4 H Plt Count 183 MPV 12.1 H Sodium 134 L Potassium 3.6 Chloride Carbon Dioxide Anion Gap BUN Creatinine Estim Creat Clear Calc Estimated GFR Glucose POC Capillary Glucose 152 H 215 H Calcium 04/17/24 04/17/24 04/17/24 05:23 06:34 08:05 WBC RBC Hgb Hct MCV MCH MCHC RDW Plt Count MPV Sodium Potassium 3.6 Chloride 100 Carbon Dioxide 28 Anion Gap 6 BUN 40 H Creatinine 1.70 H Estim Creat Clear Calc 53 Estimated GFR 50 L Glucose 107 POC Capillary Glucose 118 H 107 H Calcium 9.3 04/17/24 12:18 WBC RBC Hgb Hct MCV MCH MCHC RDW Plt Count MPV Sodium Potassium Chloride Carbon Dioxide Anion Gap BUN Creatinine Estim Creat Clear Calc Estimated GFR Glucose POC Capillary Glucose 255 H Calcium Quality VTE Prophylaxis VTE prophylaxis: pharmacologic ordered
[2024-04-17 17:20] LABS: Glucose Point of Care 205 mg/dl (65-105)
--- NOTE | 2024-04-17 17:39 | PM.PNCARD ---
Progress Note: A&P Assessment and Plan (1) Congestive heart failure: Qualifiers: Heart failure chronicity: acute on chronic Heart failure type: unspecified Qualified Code(s): I50.9 - Heart failure, unspecified Code(s): I50.9 - Heart failure, unspecified Status: Acute (2) NICM (nonischemic cardiomyopathy): Code(s): I42.8 - Other cardiomyopathies Status: Acute Plan Acute on chronic CHF NYHA II-III, stage C EF 25-30% Nonischemic cardiomyopathy 2. History of open heart surgery 3. Type 2 PA 4. Hypertension 5. Hyperlipidemia -continue IV diuresis, 1 more dose of metolazone today -restrict total fluid from 3864-2034 mL only -continue aspirin, statin -continue beta-bee, ARB, spironolactone at current doses Subjective Date/time seen: 04/17/24 17:39 Interval history: pt is seen and examined. feeling fine- not much appetite as does not like Good urine output Renal function slightly worsen. Review of Systems Review of Systems: 12 systems were reviewed and are negative except for as per HPI. All systems reviewed & are unremarkable except as noted in HPI and below Constitutional: Constitutional: Reports no additional constitutional complaints Eyes: Eyes: Reports no additional eye complaints ENT: Reports system reviewed and no additional complaints, except as documented Cardiovascular: Cardiovascular: Reports no additional cardiovascular complaints Respiratory: Respiratory: Reports as per HPI Gastrointestinal: Gastrointestinal: Reports no additional gastrointestinal complaints Musculoskeletal: Musculoskeletal: Reports no additional musculoskeletal complaints Neurologic: Reports system reviewed and no additional complaints, except as documented Exam Narrative: General: Well-developed, nontoxic-appearing male in the semi-Alexandre position in bed in no distress. Weight: 124.1 kg. BMI: 41.6. HEENT: PERRL, EOMI. Sclera anicteric. Oral mucosa moist. Crowded oropharynx. Neck: Supple. Exam limited due to neck circumference. Respiratory: Respirations are nonlabored and he is speaking in full sentences. Lung sounds are diminished at the bases with scattered crackles. Occasional expiratory wheezes. Cardiovascular: Regular rate and rhythm with S1-S2. Gastrointestinal: Abdomen is soft, obese, nontender, and nondistended with positive bowel sounds. Skin: Warm and dry. No rash or lesions on limited exam. Extremities: No cyanosis or clubbing. Bilateral lower extremity pitting edema. No palpable knots or cords. Neurological: Alert. Cranial nerves 2-12 are grossly intact. No gross focal deficits to casual conversation. Psychiatric: Pleasant and cooperative with normal mood and affect. Judgment and insight intact. Objective Data Vital Signs Vital Signs: Vital Signs - 24 hr 04/16/24 20:00 04/16/24 20:00 04/16/24 20:00 Temperature 36.8 C Pulse Rate 63 70 Respiratory Rate 18 Blood Pressure 137/76 Pulse Oximetry 96 Oxygen Delivery Room Air Fraction of Inspired Oxygen 04/16/24 21:20 04/16/24 21:20 04/16/24 21:25 Temperature Pulse Rate 62 68 Respiratory Rate 18 18 Blood Pressure Pulse Oximetry 95 Oxygen Delivery Room Air Fraction of Inspired Oxygen 04/16/24 21:46 04/16/24 23:45 04/17/24 00:00 Temperature 37.1 C Pulse Rate 70 63 86 Respiratory Rate 14 18 Blood Pressure 127/56 L Pulse Oximetry 98 Oxygen Delivery Autopap Fraction of Inspired Oxygen 04/17/24 00:00 04/17/24 02:42 04/17/24 02:53 Temperature Pulse Rate 67 62 60 Respiratory Rate Blood Pressure Pulse Oximetry Oxygen Delivery Fraction of Inspired Oxygen 04/17/24 04:00 04/17/24 04:00 04/17/24 06:21 Temperature 36.8 C 36.4 C L Pulse Rate 79 64 71 Respiratory Rate 18 18 Blood Pressure 150/75 H 129/53 L Pulse Oximetry 95 96 Oxygen Delivery Fraction of Inspired Oxygen 04/17/24 07:49 04/17/24 07:49 04/17/24 08:00 Temperature 36.6 C Pulse Rate 68 99 Respiratory Rate 18 16 Blood Pressure 148/82 H Pulse Oximetry 95 97 Oxygen Delivery Room Air Fraction of Inspired Oxygen 21 04/17/24 08:00 04/17/24 08:00 04/17/24 10:24 Temperature Pulse Rate 67 66 74 Respiratory Rate 18 Blood Pressure Pulse Oximetry Oxygen Delivery Fraction of Inspired Oxygen 04/17/24 10:30 04/17/24 12:00 04/17/24 12:00 Temperature 36.5 C Pulse Rate 75 69 Respiratory Rate 16 Blood Pressure 135/89 Pulse Oximetry 97 Oxygen Delivery Room Air Fraction of Inspired Oxygen 04/17/24 16:00 04/17/24 17:39 Temperature 36.4 C L Pulse Rate 65 66 Respiratory Rate 17 Blood Pressure 149/83 H Pulse Oximetry 98 Oxygen Delivery Fraction of Inspired Oxygen Intake/Output Intake/Output: Intake & Output 04/14/24 04/15/24 04/16/24 04/17/24 23:59 23:59 23:59 23:59 Intake Total 1510 1550 720 240 Output Total 1600 1425 3800 1790 Balance -90 844 -6898 -0947 Meds/Results Medications: Active Medications Generic Name Dose Route Start Last Admin Trade Name Freq PRN Reason Stop Dose Admin Acetaminophen 650 mg 04/12/24 18:42 Acetaminophen 325 Mg Tablet PO Q4H PRN Mild Pain (1-3) or Fever Albuterol 1 puff 04/13/24 00:16 Albuterol Sulfate (*Sp) Aerosol 1 Puff INHALATION Q4-6H PRN shortness of breath or wheezin Albuterol/Ipratropium 3 ml 04/13/24 12:39 Ipratropium 0.5 Mg/Albuterol Sulfate 2.5 Mg Ampul.Neb 3 Ml NEBULIZE Q6HRT PRN Shortness Of Breath Or Wheezing Allopurinol 300 mg 04/13/24 09:00 04/17/24 10:24 Allopurinol 300 Mg Tablet PO 300 mg DAILY ARIAN Administration Aspirin 81 mg 04/13/24 13:25 04/17/24 10:24 Aspirin 81 Mg Enteric Tablet PO 81 mg QAM ARIAN Administration Atorvastatin Calcium 80 mg 04/13/24 09:00 04/17/24 10:24 Atorvastatin 40 Mg Tablet PO 80 mg DAILY ARIAN Administration Carvedilol 25 mg 04/14/24 21:00 04/17/24 10:24 Carvedilol 25 Mg Tablet PO 25 mg Q12HR ARIAN Administration Dextrose 12.5 gm 04/12/24 20:42 Dextrose 50% 25 Gm/50 Ml Syringe IV PUSH PRN PRN Hypoglycemia Protocol Enoxaparin Sodium 40 mg 04/13/24 09:00 04/17/24 10:29 Enoxaparin 40 Mg/0.4 Ml Syringe SUB-Q 40 mg DAILY ARIAN Administration Famotidine 20 mg 04/13/24 09:00 04/17/24 10:25 Famotidine 20 Mg Tablet PO 20 mg DAILY ARIAN Administration Furosemide 20 mg/ Furosemide 60 mg 04/17/24 17:00 40 mg PO BID ARIAN Glucagon 1 mg 04/12/24 18:42 Glucagon For Inj 1 Mg Vial IM PRN PRN Hypoglycemia Protocol Glucose 15 gm 04/12/24 18:42 Glucose Oral Gel 15 Gm Of Glucse In 37.5 Gm Tube PO PRN PRN Hypoglycemia Protocol Hydrocortisone 1 applic 04/12/24 23:28 Hydrocortisone 2.5% Cream 30 Gm Tube TOPICAL TID PRN itching Dextrose 1,000 mls @ 100 mls/hr 04/12/24 20:42 Dextrose 5% 1,000 Ml IVPB PRN PRN Hypoglycemia Protocol Insulin Aspart 3 - 6 units 04/13/24 08:00 04/17/24 13:11 Insulin Aspart (*Bkc) 100 Units/Ml SUB-Q 4 units TIDWM ARIAN Administration Protocol Insulin Aspart 1 - 3 units 04/12/24 21:00 04/16/24 21:45 Insulin Aspart (*Bkc) 100 Units/Ml SUB-Q 1 units HS ARIAN Administration Protocol Insulin Aspart 16 units 04/17/24 12:00 04/17/24 13:11 Insulin Aspart (*Bkc) 100 Units/Ml SUB-Q 16 units TIDWM ARIAN Administration Insulin Glargine 10 units 04/18/24 09:00 Insulin Glargine (*Bkc) 100 Units/Ml SUB-Q DAILY ARIAN Ipratropium [place] 0.5 mg 04/12/24 20:00 04/17/24 14:10 Ipratropium Br 0.02% Inh Soln 0.5 Mg/2.5 Ml Vial INHALATION Not Given Q6HRT ARIAN Montelukast Sodium 10 mg 04/13/24 09:00 04/17/24 10:25 Montelukast Sodium 10 Mg Tablet PO 10 mg DAILY ARIAN Administration Ondansetron HCl 4 mg 04/12/24 18:42 Ondansetron Inj 4 Mg/2 Ml Vial IV PUSH Q4H PRN Nausea Pantoprazole Sodium 20 mg 04/13/24 09:00 04/17/24 10:25 Pantoprazole Sod Sesquihydrate 20 Mg Tab PO 20 mg DAILY ARIAN Administration Polyethylene Glycol 17 gm 04/16/24 11:20 04/16/24 13:14 Polyethylene Glycol 3350 17 Gm Powd.Pack PO 17 gm QAM PRN Administration Constipation Fluticasone/Salmeterol 2 puff 04/13/24 08:00 04/17/24 07:51 Fluticasone/Salmeterol 230-21 Mcg Inhaler 1 Puff INHALATION 2 puff Q12HRT ARIAN Administration Spironolactone 25 mg 04/13/24 09:00 04/17/24 10:25 Spironolactone 25 Mg Tablet PO 25 mg DAILY ARIAN Administration Tamsulosin HCl 0.4 mg 04/13/24 21:00 04/16/24 21:46 Tamsulosin Hcl 0.4 Mg Capsule PO 0.4 mg HS ARIAN Administration Valsartan 160 mg 04/13/24 09:00 04/17/24 10:25 Valsartan 160 Mg Tablet PO 160 mg BID ARIAN Administration Radiology Results: ITS Impressions Chest X-Ray 04/12/24 16:59 IMPRESSION: 1. Mild pulmonary edema. 2. Small pleural effusions. 3. Cardiomegaly. Chest CTA 04/12/24 18:40 IMPRESSION: 1. No pulmonary embolism. 2. Bilateral moderate pleural effusion with adjacent atelectasis versus pneumonia. 3. Large bulge seen in the spleen unchanged from previous examination. Further evaluation advised to exclude a mass. Abscess or hematoma is less likely although cannot be excluded. Abdomen Ultrasound 04/13/24 08:08 Impression: Diffuse fatty infiltration of liver. 10.4 x 9.4 x 9.9 cm predominantly echogenic, solid splenic mass. This could reflect large splenic hemangioma. Further evaluation with pre and postcontrast MRI should be considered. Labs Labs: Laboratory Results - last 24 hr 04/16/24 04/17/24 04/17/24 20:13 05:23 05:23 WBC 8.6 RBC 5.00 Hgb 12.8 L Hct 40.8 L MCV 81.6 MCH 25.6 L MCHC 31.4 L RDW 15.4 H Plt Count 183 MPV 12.1 H Sodium 134 L Potassium 3.6 3.6 Chloride 100 Carbon Dioxide 28 Anion Gap 6 BUN 40 H Creatinine 1.70 H Estim Creat Clear Calc 53 Estimated GFR 50 L Glucose 107 POC Capillary Glucose 215 H Calcium 9.3 04/17/24 04/17/24 04/17/24 06:34 08:05 12:18 WBC RBC Hgb Hct MCV MCH MCHC RDW Plt Count MPV Sodium Potassium Chloride Carbon Dioxide Anion Gap BUN Creatinine Estim Creat Clear Calc Estimated GFR Glucose POC Capillary Glucose 118 H 107 H 255 H Calcium 04/17/24 16:57 WBC RBC Hgb Hct MCV MCH MCHC RDW Plt Count MPV Sodium Potassium Chloride Carbon Dioxide Anion Gap BUN Creatinine Estim Creat Clear Calc Estimated GFR Glucose POC Capillary Glucose 205 H Calcium
[2024-04-17] MEDS: FUROSEMIDE TABLET 20 MG, FUROSEMIDE TABLET 40 MG 60 MG PO (17:40)
[2024-04-17] MEDS: TAMSULOSIN HCL 0.4 MG CAPSULE PO (21:58)
[2024-04-17 22:10] LABS: Glucose Point of Care 90 mg/dl (65-105)
[2024-04-18] VITALS (13 sets, daily range): BP systolic 107–148; BP diastolic 44–94; PULSE 52–96; RESP 14–18; TEMP 36.3–36.7; O2SAT 94–98
[2024-04-18 06:31] LABS: Hematocrit 45.4 % (42.0-52.0); Hemoglobin 14.5 g/dL (14.0-18.0); Mean Corpuscular HGB Conc 31.9 g/dl (32-36); Mean Corpuscular Volume 81.4 fl (80-100); Platelet Count Result 208 k/mm3 (150-375); Red Blood Count 5.58 M/mm3 (4.6-6.20); Red Cell Distribution Width 15.5 % (11.5-14.5); White Blood Count 6.9 K/mm3 (4.5-10.0)
[2024-04-18 06:44] LABS: Anion Gap 4 mmol/L (4-12); Blood Urea Nitrogen 45 mg/dL (9-20); Calcium 9.2 mg/dL (8.4-10.2); Carbon Dioxide 32 mmol/L (22-30); Chloride 100 mmol/L (98-107); Estimated CRCL calculation 47 ml/min; Estimated Glomerular Filt Rate 44; Glucose 117 mg/dL (65-110); Sodium 136 mmol/L (137-145)
[2024-04-18] MEDS: IPRATROPIUM BR 0.02% INH SOLN 0.5 MG/2.5 ML VIAL INHALATION ×3 (07:49→19:55)
[2024-04-18] MEDS: FLUTICASONE/SALMETEROL 230-21 MCG INHALER 1 PUFF 2 PUFF INHALATION ×2 (07:49→19:55)
[2024-04-18 08:04] LABS: Glucose Point of Care 129 mg/dl (65-105)
--- NOTE | 2024-04-18 08:46 | PM.IMPN ---
Progress Note: A&P Assessment and Plan (1) CHF exacerbation: Code(s): I50.9 - Heart failure, unspecified Status: Acute Assessment and Plan: The patient presented to the emergency department for evaluation of shortness of breath and wheezing Labs, imaging, EKG, and all reports were reviewed. Symptoms have been ongoing for couple of months but worse most recently. CT scan shows bilateral pleural effusions which are likely the cause of a shortness of breath in addition to asthma. cardiology consulted, notes reviewed: He has a history of open heart surgery, details of which are not known. he denies any CABG done during that time - It is my clinical impression that he has decompensated HF and the troponin elevation is secondary to type 2 CO - No need for heparin infusion - Echo to assess LV systolic function and wall motion - Will continue to diureses him; one dose of 5 mg Metolazone today, continue IV diuresis - Monitor and optimize anti-hypertensives - Start ASA 81; continue statin, and BB Troponin is mildly elevated and will be trended. He does have a history of coronary artery disease but is not complaining of any chest pain. Monitor on telemetry. Echocardiogram ordered. - will decrease lasix to daily from BID as kidney function worsen 1/2- cardiology following. TTE done shows EF 25-30%, PASP 65 mm Hg. he is agreeable for [facility] today 04/16 card.cath compelted: elevated LVEDP, normal arteries, nonischemic cardiomopathy. plan per card: Lasix to 80 mg twice daily -5 mg dose of metolazonen once today -strict input-output -restrict oral fluid from 9645-7583 mL only 1/ diuresed very well. restricted intake. awaiting for cards today to see pt fir further diuretic recommendations. 04/18 furosemide decreased to 60 mg PO bid yesterday pm per card. (2) Asthma: Code(s): J45.909 - Unspecified asthma, uncomplicated Status: Acute Assessment and Plan: He may need thoracentesis depending on his course. he has scheduled bronchodilators and steroids as well. No indication for antibiotics at this time. continue to monitor resp status (3) Coronary artery disease: Code(s): I25.10 - Atherosclerotic heart disease of [place] coronary artery without angina pectoris Status: Acute Assessment and Plan: see above#1 (4) Hypertension: Code(s): I10 - Essential (primary) hypertension Status: Acute (5) Splenic cyst: Code(s): D73.4 - Cyst of spleen Status: Acute Assessment and Plan: Ultrasound ordered to evaluate ?large bulge? seen in the spleen, previously thought to be related to cysts. ultrasound: Diffuse fatty infiltration of liver. 10.4 x 9.4 x 9.9 cm predominantly echogenic, solid splenic mass. This could reflect large splenic hemangioma. Further evaluation with pre and postcontrast MRI should be considered. (6) Type 2 diabetes mellitus: Code(s): E11.9 - Type 2 diabetes mellitus without complications Status: Acute Assessment and Plan: Initiate sliding scale insulin, Accu-Cheks, and hypoglycemic protocol. Time Spent With Patient Time with patient: Greater than 35 minutes Subjective Date/time seen: 04/18/24 08:46 Interval history: pt is seen and examined. feeling fine- not much appetite as does not like. diet is changed. Good urine output Renal function slightly worsen- lasix dose decreased per cardiology to 60 mg bid yesterday. Review of Systems Review of Systems: 12 systems were reviewed and are negative except for as per HPI. Exam Narrative: General: Well-developed, nontoxic-appearing male in the semi-Alexandre position in bed in no distress. Weight: 124.1 kg. BMI: 41.6. HEENT: PERRL, EOMI. Sclera anicteric. Oral mucosa moist. Crowded oropharynx. Neck: Supple. Exam limited due to neck circumference. Respiratory: Respirations are nonlabored and he is speaking in full sentences. Lung sounds are diminished at the bases with scattered crackles. Occasional expiratory wheezes. Cardiovascular: Regular rate and rhythm with S1-S2. Gastrointestinal: Abdomen is soft, obese, nontender, and nondistended with positive bowel sounds. Skin: Warm and dry. No rash or lesions on limited exam. Extremities: No cyanosis or clubbing. Bilateral lower extremity pitting edema. No palpable knots or cords. Neurological: Alert. Cranial nerves 2-12 are grossly intact. No gross focal deficits to casual conversation. Psychiatric: Pleasant and cooperative with normal mood and affect. Judgment and insight intact. Objective Data Vital Signs Vital Signs: Vital Signs - 24 hr 04/17/24 10:24 04/17/24 10:30 04/17/24 12:00 Temperature Pulse Rate 74 75 Respiratory Rate Blood Pressure Pulse Oximetry Oxygen Delivery Room Air Fraction of Inspired Oxygen 04/17/24 12:00 04/17/24 16:00 04/17/24 17:39 Temperature 97.7 F 97.5 F L Pulse Rate 69 65 66 Respiratory Rate 16 17 Blood Pressure 135/89 149/83 H Pulse Oximetry 97 98 Oxygen Delivery Fraction of Inspired Oxygen 04/17/24 20:00 04/17/24 20:43 04/17/24 20:46 Temperature 98.3 F Pulse Rate 58 L 65 Respiratory Rate 18 18 Blood Pressure 120/62 Pulse Oximetry 100 95 Oxygen Delivery Room Air Fraction of Inspired Oxygen 21 04/17/24 20:51 04/17/24 21:50 04/17/24 21:50 Temperature Pulse Rate 63 60 Respiratory Rate 18 Blood Pressure Pulse Oximetry Oxygen Delivery Room Air Fraction of Inspired Oxygen 04/17/24 21:56 04/18/24 00:00 04/18/24 00:00 Temperature 98.1 F Pulse Rate 64 56 L 96 Respiratory Rate 18 Blood Pressure 107/44 L Pulse Oximetry 95 Oxygen Delivery Fraction of Inspired Oxygen 04/18/24 04:00 04/18/24 04:00 04/18/24 07:49 Temperature 98.1 F Pulse Rate 66 60 Respiratory Rate 18 Blood Pressure 136/90 Pulse Oximetry 98 95 Oxygen Delivery Room Air Fraction of Inspired Oxygen 04/18/24 07:49 04/18/24 08:00 04/18/24 08:00 Temperature 97.3 F L Pulse Rate 63 61 67 Respiratory Rate 18 18 14 Blood Pressure 132/94 H Pulse Oximetry 97 Oxygen Delivery Fraction of Inspired Oxygen Intake/Output Intake/Output: Intake & Output 04/15/24 04/16/24 04/17/24 04/18/24 23:59 23:59 23:59 23:59 Intake Total 1550 135 916 4052 Output Total 1425 3800 2090 1950 Balance 772 -7515 -5361 -082 Meds/Results Medications: Active Medications Generic Name Dose Route Start Last Admin Trade Name Freq PRN Reason Stop Dose Admin Acetaminophen 650 mg 04/12/24 18:42 Acetaminophen 325 Mg Tablet PO Q4H PRN Mild Pain (1-3) or Fever Albuterol 1 puff 04/13/24 00:16 Albuterol Sulfate (*Sp) Aerosol 1 Puff INHALATION Q4-6H PRN shortness of breath or wheezin Albuterol/Ipratropium 3 ml 04/13/24 12:39 Ipratropium 0.5 Mg/Albuterol Sulfate 2.5 Mg Ampul.Neb 3 Ml NEBULIZE Q6HRT PRN Shortness Of Breath Or Wheezing Allopurinol 300 mg 04/13/24 09:00 04/17/24 10:24 Allopurinol 300 Mg Tablet PO 300 mg DAILY ARIAN Administration Aspirin 81 mg 04/13/24 13:25 04/17/24 10:24 Aspirin 81 Mg Enteric Tablet PO 81 mg QAM ARIAN Administration Atorvastatin Calcium 80 mg 04/13/24 09:00 04/17/24 10:24 Atorvastatin 40 Mg Tablet PO 80 mg DAILY ARIAN Administration Benzocaine 1 applic 04/18/24 05:30 Benzocaine 20% Dental Gel 9 Gm Tube BY MOUTH QID PRN Oral Pain Carvedilol 25 mg 04/14/24 21:00 04/17/24 21:56 Carvedilol 25 Mg Tablet PO 25 mg Q12HR ARIAN Administration Dextrose 12.5 gm 04/12/24 20:42 Dextrose 50% 25 Gm/50 Ml Syringe IV PUSH PRN PRN Hypoglycemia Protocol Enoxaparin Sodium 40 mg 04/13/24 09:00 04/17/24 10:29 Enoxaparin 40 Mg/0.4 Ml Syringe SUB-Q 40 mg DAILY ARIAN Administration Famotidine 20 mg 04/13/24 09:00 04/17/24 10:25 Famotidine 20 Mg Tablet PO 20 mg DAILY ARIAN Administration Furosemide 20 mg/ Furosemide 60 mg 04/17/24 17:00 04/17/24 17:40 40 mg PO 60 mg BID ARIAN Administration Glucagon 1 mg 04/12/24 18:42 Glucagon For Inj 1 Mg Vial IM PRN PRN Hypoglycemia Protocol Glucose 15 gm 04/12/24 18:42 Glucose Oral Gel 15 Gm Of Glucse In 37.5 Gm Tube PO PRN PRN Hypoglycemia Protocol Hydrocortisone 1 applic 04/12/24 23:28 Hydrocortisone 2.5% Cream 30 Gm Tube TOPICAL TID PRN itching Dextrose 1,000 mls @ 100 mls/hr 04/12/24 20:42 Dextrose 5% 1,000 Ml IVPB PRN PRN Hypoglycemia Protocol Insulin Aspart 3 - 6 units 04/13/24 08:00 04/17/24 17:41 Insulin Aspart (*Bkc) 100 Units/Ml SUB-Q 3 units TIDWM ARIAN Administration Protocol Insulin Aspart 1 - 3 units 04/12/24 21:00 04/17/24 21:57 Insulin Aspart (*Bkc) 100 Units/Ml SUB-Q Not Given HS [facility] Protocol Insulin Aspart 16 units 04/17/24 12:00 04/17/24 17:41 Insulin Aspart (*Bkc) 100 Units/Ml SUB-Q 16 units TIDWM ARIAN Administration Insulin Glargine 10 units 04/18/24 09:00 Insulin Glargine (*Bkc) 100 Units/Ml SUB-Q DAILY ARIAN Ipratropium [place] 0.5 mg 04/12/24 20:00 04/18/24 07:49 Ipratropium Br 0.02% Inh Soln 0.5 Mg/2.5 Ml Vial INHALATION 0.5 mg Q6HRT ARIAN Administration Montelukast Sodium 10 mg 04/13/24 09:00 04/17/24 10:25 Montelukast Sodium 10 Mg Tablet PO 10 mg DAILY [facility] Administration Ondansetron HCl 4 mg 04/12/24 18:42 Ondansetron Inj 4 Mg/2 Ml Vial IV PUSH Q4H PRN Nausea Pantoprazole Sodium 20 mg 04/13/24 09:00 04/17/24 10:25 Pantoprazole Sod Sesquihydrate 20 Mg Tab PO 20 mg DAILY ARIAN Administration Polyethylene Glycol 17 gm 04/16/24 11:20 04/16/24 13:14 Polyethylene Glycol 3350 17 Gm Powd.Pack PO 17 gm QAM PRN Administration Constipation Fluticasone/Salmeterol 2 puff 04/13/24 08:00 04/18/24 07:49 Fluticasone/Salmeterol 230-21 Mcg Inhaler 1 Puff INHALATION 2 puff Q12HRT ARIAN Administration Spironolactone 25 mg 04/13/24 09:00 04/17/24 10:25 Spironolactone 25 Mg Tablet PO 25 mg DAILY ARIAN Administration Tamsulosin HCl 0.4 mg 04/13/24 21:00 04/17/24 21:58 Tamsulosin Hcl 0.4 Mg Capsule PO 0.4 mg HS ARIAN Administration Valsartan 160 mg 04/13/24 09:00 04/17/24 17:41 Valsartan 160 Mg Tablet PO 160 mg BID ARIAN Administration Radiology Results: ITS Impressions Chest X-Ray 04/12/24 16:59 IMPRESSION: 1. Mild pulmonary edema. 2. Small pleural effusions. 3. Cardiomegaly. Chest CTA 04/12/24 18:40 IMPRESSION: 1. No pulmonary embolism. 2. Bilateral moderate pleural effusion with adjacent atelectasis versus pneumonia. 3. Large bulge seen in the spleen unchanged from previous examination. Further evaluation advised to exclude a mass. Abscess or hematoma is less likely although cannot be excluded. Abdomen Ultrasound 04/13/24 08:08 Impression: Diffuse fatty infiltration of liver. 10.4 x 9.4 x 9.9 cm predominantly echogenic, solid splenic mass. This could reflect large splenic hemangioma. Further evaluation with pre and postcontrast MRI should be considered. Labs Labs: Laboratory Results - last 24 hr 04/17/24 04/17/24 04/17/24 12:18 16:57 21:55 WBC RBC Hgb Hct MCV MCH MCHC RDW Plt Count MPV Sodium Potassium Chloride Carbon Dioxide Anion Gap BUN Creatinine Estim Creat Clear Calc Estimated GFR Glucose POC Capillary Glucose 255 H 205 H 90 Calcium 04/18/24 04/18/24 05:24 07:59 WBC 6.9 RBC 5.58 Hgb 14.5 Hct 45.4 MCV 81.4 MCH 26.0 MCHC 31.9 L RDW 15.5 H Plt Count 208 MPV 12.0 H Sodium 136 L Potassium 4.0 Chloride 100 Carbon Dioxide 32 H Anion Gap 4 BUN 45 H Creatinine 1.90 H Estim Creat Clear Calc 47 Estimated GFR 44 L Glucose 117 H POC Capillary Glucose 129 H Calcium 9.2 Quality VTE Prophylaxis VTE prophylaxis: pharmacologic ordered
[2024-04-18] MEDS: MONTELUKAST SODIUM 10 MG TABLET PO (08:53)
[2024-04-18] MEDS: ATORVASTATIN 40 MG TABLET 80 MG PO (08:53)
[2024-04-18] MEDS: PANTOPRAZOLE SOD SESQUIHYDRATE 20 MG TAB PO (08:53)
[2024-04-18] MEDS: SPIRONOLACTONE 25 MG TABLET PO (08:53)
[2024-04-18] MEDS: carvediloL 25 MG TABLET PO ×2 (08:53→20:06)
[2024-04-18] MEDS: FAMOTIDINE 20 MG TABLET PO (08:53)
[2024-04-18] MEDS: FUROSEMIDE TABLET 20 MG, FUROSEMIDE TABLET 40 MG 60 MG PO (08:53)
[2024-04-18] MEDS: ASPIRIN 81 MG ENTERIC TABLET PO (08:53)
[2024-04-18] MEDS: VALSARTAN 160 MG TABLET PO ×2 (08:54→18:05)
[2024-04-18] MEDS: INSULIN GLARGINE (*BKC) 100 UNITS/ML 10 UNITS SUB-Q (08:54)
[2024-04-18] MEDS: allopurinoL 300 MG TABLET PO (08:54)
[2024-04-18] MEDS: ENOXAPARIN 40 MG/0.4 ML SYRINGE SUB-Q (08:56)
[2024-04-18 13:01] LABS: Glucose Point of Care 216 mg/dl (65-105)
[2024-04-18] MEDS: INSULIN ASPART (*BKC) 100 UNITS/ML 16 UNITS SUB-Q ×2 (13:07→18:05)
[2024-04-18] MEDS: INSULIN ASPART (*BKC) 100 UNITS/ML SUB-Q ×3 (13:08→20:07)
--- NOTE | 2024-04-18 15:20 | PC.NURSE ---
Left message with Risa Morris that I have tried to call battery test engineer to see if patient can D/C from their standpoint. Left message with Dr. Thakkar, never received call back.
[2024-04-18 17:20] LABS: Glucose Point of Care 236 mg/dl (65-105)
--- NOTE | 2024-04-18 19:29 | P.PNCA_ITS ---
Progress Note: A&P Assessment and Plan (1) Congestive heart failure: Qualifiers: Heart failure chronicity: acute on chronic Heart failure type: unspecified Qualified Code(s): I50.9 - Heart failure, unspecified Code(s): I50.9 - Heart failure, unspecified Status: Acute (2) NICM (nonischemic cardiomyopathy): Code(s): I42.8 - Other cardiomyopathies Status: Acute Plan Acute on chronic CHF NYHA II-III, stage C EF 25-30% Nonischemic cardiomyopathy 2. History of open heart surgery 3. Type 2 [place] 4. Hypertension 5. Hyperlipidemia -will hold dialysis today, May Start tomorrow at 40 mg once a day if renal function improving -restrict total fluid from 7737-4133 mL only -continue aspirin, statin -continue beta-bee, ARB, spironolactone at current doses Subjective Date/time seen: 04/18/24 19:29 Interval history: pt is seen and examined. Feeling fine, no more dyspnea or cough on lying down -1.1 L/24 hours -5.4 L since admission Renal function slightly worsened Review of Systems Review of Systems: 12 systems were reviewed and are negativ e except for as per HPI. Exam Narrative: General: Well-developed, nontoxic-appearing male in the semi-Alexandre position in bed in no distress. Weight: 124.1 kg. BMI: 41.6. HEENT: PERRL, EOMI. Sclera anicteric. Oral mucosa moist. Crowded oropharynx. Neck: Supple. Exam limited due to neck circumference. Respiratory: Respirations are nonlabored and he is speaking in full sentences. Lung sounds are diminished at the bases with scattered crackles. Occasional expiratory wheezes. Cardiovascular: Regular rate and rhythm with S1-S2. Gastrointestinal: Abdomen is soft, obese, nontender, and nondistended with positive bowel sounds. Skin: Warm and dry. No rash or lesions on limited exam. Extremities: No cyanosis or clubbing. Bilateral lower extremity pitting edema. No palpable knots or cords. Neurological: Alert. Cranial nerves 2-12 are grossly intact. No gross focal deficits to casual conversation. Psychiatric: Pleasant and cooperative with normal mood and affect. Judgment and insight intact. Objective Data Vital Signs Vital Signs: Vital Signs - 24 hr 04/17/24 20:00 04/17/24 20:43 04/17/24 20:46 Temperature 36.8 C Pulse Rate 58 L 65 Respiratory Rate 18 18 Blood Pressure 120/62 Pulse Oximetry 100 95 Oxygen Delivery Room Air Fraction of Inspired Oxygen 21 04/17/24 20:51 04/17/24 21:50 04/17/24 21:50 Temperature Pulse Rate 63 60 Respiratory Rate 18 Blood Pressure Pulse Oximetry Oxygen Delivery Room Air Fraction of Inspired Oxygen 04/17/24 21:56 04/18/24 00:00 04/18/24 00:00 Temperature 36.7 C Pulse Rate 64 56 L 96 Respiratory Rate 18 Blood Pressure 107/44 L Pulse Oximetry 95 Oxygen Delivery Fraction of Inspired Oxygen 04/18/24 04:00 04/18/24 04:00 04/18/24 07:49 Temperature 36.7 C Pulse Rate 66 60 Respiratory Rate 18 Blood Pressure 136/90 Pulse Oximetry 98 95 Oxygen Delivery Room Air Fraction of Inspired Oxygen 04/18/24 07:49 04/18/24 08:00 04/18/24 08:00 Temperature 36.3 C L Pulse Rate 63 61 67 Respiratory Rate 18 18 14 Blood Pressure 132/94 H Pulse Oximetry 97 Oxygen Delivery Fraction of Inspired Oxygen 04/18/24 08:00 04/18/24 08:53 04/18/24 09:00 Temperature Pulse Rate 61 80 Respiratory Rate Blood Pressure Pulse Oximetry Oxygen Delivery Room Air Fraction of Inspired Oxygen 04/18/24 12:00 04/18/24 12:00 04/18/24 15:43 Temperature 36.6 C Pulse Rate 60 62 64 Respiratory Rate 18 18 Blood Pressure 126/76 Pulse Oximetry 97 Oxygen Delivery Fraction of Inspired Oxygen 04/18/24 15:57 04/18/24 16:00 Temperature Pulse Rate 60 62 Respiratory Rate 18 Blood Pressure Pulse Oximetry Oxygen Delivery Fraction of Inspired Oxygen Intake/Output Intake/Output: Intake & Output 04/15/24 04/16/24 04/17/24 04/18/24 23:59 23:59 23:59 23:59 Intake Total 1550 076 863 4965 Output Total 1425 3800 2090 3350 Balance 026 -6279 -1616 -7473 Meds/Results Medications: Active Medications Generic Name Dose Route Start Last Admin Trade Name Freq PRN Reason Stop Dose Admin Acetaminophen 650 mg 04/12/24 18:42 Acetaminophen 325 Mg Tablet PO Q4H PRN Mild Pain (1-3) or Fever Albuterol 1 puff 04/13/24 00:16 Albuterol Sulfate (*Sp) Aerosol 1 Puff INHALATION Q4-6H PRN shortness of breath or wheezin Albuterol/Ipratropium 3 ml 04/13/24 12:39 Ipratropium 0.5 Mg/Albuterol Sulfate 2.5 Mg Ampul.Neb 3 Ml NEBULIZE Q6HRT PRN Shortness Of Breath Or Wheezing Allopurinol 300 mg 04/13/24 09:00 04/18/24 08:54 Allopurinol 300 Mg Tablet PO 300 mg DAILY ARIAN Administration Aspirin 81 mg 04/13/24 13:25 04/18/24 08:53 Aspirin 81 Mg Enteric Tablet PO 81 mg QAM ARIAN Administration Atorvastatin Calcium 80 mg 04/13/24 09:00 04/18/24 08:53 Atorvastatin 40 Mg Tablet PO 80 mg DAILY ARIAN Administration Benzocaine 1 applic 04/18/24 05:30 Benzocaine 20% Dental Gel 9 Gm Tube BY MOUTH QID PRN Oral Pain Carvedilol 25 mg 04/14/24 21:00 04/18/24 08:53 Carvedilol 25 Mg Tablet PO 25 mg Q12HR ARIAN Administration Dextrose 12.5 gm 04/12/24 20:42 Dextrose 50% 25 Gm/50 Ml Syringe IV PUSH PRN PRN Hypoglycemia Protocol Enoxaparin Sodium 40 mg 04/13/24 09:00 04/18/24 08:56 Enoxaparin 40 Mg/0.4 Ml Syringe SUB-Q 40 mg DAILY ARIAN Administration Famotidine 20 mg 04/13/24 09:00 04/18/24 08:53 Famotidine 20 Mg Tablet PO 20 mg DAILY ARIAN Administration Glucagon 1 mg 04/12/24 18:42 Glucagon For Inj 1 Mg Vial IM PRN PRN Hypoglycemia Protocol Glucose 15 gm 04/12/24 18:42 Glucose Oral Gel 15 Gm Of Glucse In 37.5 Gm Tube PO PRN PRN Hypoglycemia Protocol Hydrocortisone 1 applic 04/12/24 23:28 Hydrocortisone 2.5% Cream 30 Gm Tube TOPICAL TID PRN itching Dextrose 1,000 mls @ 100 mls/hr 04/12/24 20:42 Dextrose 5% 1,000 Ml IVPB PRN PRN Hypoglycemia Protocol Insulin Aspart 3 - 6 units 04/13/24 08:00 04/18/24 18:06 Insulin Aspart (*Bkc) 100 Units/Ml SUB-Q 3 units TIDWM ARIAN Administration Protocol Insulin Aspart 1 - 3 units 04/12/24 21:00 04/17/24 21:57 Insulin Aspart (*Bkc) 100 Units/Ml SUB-Q Not Given HS [facility] Protocol Insulin Aspart 16 units 04/17/24 12:00 04/18/24 18:05 Insulin Aspart (*Bkc) 100 Units/Ml SUB-Q 16 units TIDWM ARIAN Administration Insulin Glargine 10 units 04/18/24 09:00 04/18/24 08:54 Insulin Glargine (*Bkc) 100 Units/Ml SUB-Q 10 units DAILY ARIAN Administration Ipratropium [place] 0.5 mg 04/12/24 20:00 04/18/24 15:43 Ipratropium Br 0.02% Inh Soln 0.5 Mg/2.5 Ml Vial INHALATION 0.5 mg Q6HRT ARIAN Administration Montelukast Sodium 10 mg 04/13/24 09:00 04/18/24 08:53 Montelukast Sodium 10 Mg Tablet PO 10 mg DAILY ARIAN Administration Ondansetron HCl 4 mg 04/12/24 18:42 Ondansetron Inj 4 Mg/2 Ml Vial IV PUSH Q4H PRN Nausea Pantoprazole Sodium 20 mg 04/13/24 09:00 04/18/24 08:53 Pantoprazole Sod Sesquihydrate 20 Mg Tab PO 20 mg DAILY ARIAN Administration Polyethylene Glycol 17 gm 04/16/24 11:20 04/16/24 13:14 Polyethylene Glycol 3350 17 Gm Powd.Pack PO 17 gm QAM PRN Administration Constipation Fluticasone/Salmeterol 2 puff 04/13/24 08:00 04/18/24 07:49 Fluticasone/Salmeterol 230-21 Mcg Inhaler 1 Puff INHALATION 2 puff Q12HRT ARIAN Administration Spironolactone 25 mg 04/13/24 09:00 04/18/24 08:53 Spironolactone 25 Mg Tablet PO 25 mg DAILY ARIAN Administration Tamsulosin HCl 0.4 mg 04/13/24 21:00 04/17/24 21:58 Tamsulosin Hcl 0.4 Mg Capsule PO 0.4 mg HS ARIAN Administration Valsartan 160 mg 04/13/24 09:00 04/18/24 18:05 Valsartan 160 Mg Tablet PO 160 mg BID ARIAN Administration Radiology Results: ITS Impressions Chest X-Ray 04/12/24 16:59 IMPRESSION: 1. Mild pulmonary edema. 2. Small pleural effusions. 3. Cardiomegaly. Chest CTA 04/12/24 18:40 IMPRESSION: 1. No pulmonary embolism. 2. Bilateral moderate pleural effusion with adjacent atelectasis versus pneumonia. 3. Large bulge seen in the spleen unchanged from previous examination. Further evaluation advised to exclude a mass. Abscess or hematoma is less likely although cannot be excluded. Abdomen Ultrasound 04/13/24 08:08 Impression: Diffuse fatty infiltration of liver. 10.4 x 9.4 x 9.9 cm predominantly echogenic, solid splenic mass. This could reflect large splenic hemangioma. Further evaluation with pre and postcontrast MRI should be considered. Labs Labs: Laboratory Results - last 24 hr 04/17/24 04/18/24 04/18/24 21:55 05:24 07:59 WBC 6.9 RBC 5.58 Hgb 14.5 Hct 45.4 MCV 81.4 MCH 26.0 MCHC 31.9 L RDW 15.5 H Plt Count 208 MPV 12.0 H Sodium 136 L Potassium 4.0 Chloride 100 Carbon Dioxide 32 H Anion Gap 4 BUN 45 H Creatinine 1.90 H Estim Creat Clear Calc 47 Estimated GFR 44 L Glucose 117 H POC Capillary Glucose 90 129 H Calcium 9.2 04/18/24 04/18/24 12:45 17:11 WBC RBC Hgb Hct MCV MCH MCHC RDW Plt Count MPV Sodium Potassium Chloride Carbon Dioxide Anion Gap BUN Creatinine Estim Creat Clear Calc Estimated GFR Glucose POC Capillary Glucose 216 H 236 H Calcium
[2024-04-18] MEDS: TAMSULOSIN HCL 0.4 MG CAPSULE PO (20:06)
[2024-04-18 21:54] LABS: Glucose Point of Care 245 mg/dl (65-105)
[2024-04-19] VITALS (8 sets, daily range): BP systolic 115–133; BP diastolic 54–78; PULSE 56–68; RESP 14–18; TEMP 36.3–36.7; O2SAT 97–100
[2024-04-19] MEDS: IPRATROPIUM BR 0.02% INH SOLN 0.5 MG/2.5 ML VIAL INHALATION (01:58)
[2024-04-19 05:43] LABS: Hematocrit 42.3 % (42.0-52.0); Hemoglobin 13.3 g/dL (14.0-18.0); Immature Platelet Fraction Pct 5.9 % (0.9-11.2); Mean Corpuscular HGB Conc 31.4 g/dl (32-36); Mean Corpuscular Hemoglobin 26.7 pg (26-34); Mean Corpuscular Volume 84.8 fl (80-100); Platelet Count Result 153 k/mm3 (150-375); Red Blood Count 4.99 M/mm3 (4.6-6.20); Red Cell Distribution Width 16.4 % (11.5-14.5); White Blood Count 4.9 K/mm3 (4.5-10.0)
[2024-04-19 06:03] LABS: Anion Gap 4 mmol/L (4-12); Blood Urea Nitrogen 49 mg/dL (9-20); Calcium 8.8 mg/dL (8.4-10.2); Carbon Dioxide 28 mmol/L (22-30); Chloride 102 mmol/L (98-107); Estimated CRCL calculation 49 ml/min; Estimated Glomerular Filt Rate 47; Glucose 152 mg/dL (65-110); Potassium 4.2 mmol/L (3.4-5.0); Sodium 134 mmol/L (137-145)
[2024-04-19] MEDS: FLUTICASONE/SALMETEROL 230-21 MCG INHALER 1 PUFF 2 PUFF INHALATION (07:44)
[2024-04-19 08:30] LABS: Glucose Point of Care 144 mg/dl (65-105)
--- NOTE | 2024-04-19 09:17 | P.PNCA_ITS ---
Progress Note: A&P Assessment and Plan (1) Congestive heart failure: Qualifiers: Heart failure chronicity: acute on chronic Heart failure type: unspecified Qualified Code(s): I50.9 - Heart failure, unspecified Code(s): I50.9 - Heart failure, unspecified Status: Acute (2) NICM (nonischemic cardiomyopathy): Code(s): I42.8 - Other cardiomyopathies Status: Acute Plan Acute on chronic CHF NYHA II-III, stage C EF 25-30% Nonischemic cardiomyopathy 2. History of open heart surgery 3. Type 2 ID 4. Hypertension 5. Hyperlipidemia -creatinine today 1.8 from 1.9 yesterday. Will resume furosemide at low dose, 40 mg oral daily -can liberalize fluid restriction to 1800 mL -continue aspirin, statin -continue beta-bee, ARB, spironolactone at current doses -will add Jardiance for his cardiomyopathy -he will need BMP drawn 1 week after hospital discharge -will arrange for close follow-up in our office -cardiology will sign off. Please call with questions. Subjective Date/time seen: 04/19/24 09:17 Interval history: pt is seen and examined. Feeling fine, no more dyspnea or cough on lying down -1.1 L/24 hours -5.4 L since admission Renal function slightly worsened Date of service 04/19/2024: Feels well this morning, does not have any complaints. He denies any swelling, shortness of breath, chest pain, palpitations, orthopnea. Review of Systems Review of Systems: 12 systems were reviewed and are negativ e except for as per HPI. Exam Narrative: General: Well-developed, nontoxic-appearing male HEENT: PERRL, EOMI. Sclera anicteric. Oral mucosa moist. Neck: Supple. Exam limited due to neck circumference. Respiratory: Respirations are nonlabored and he is speaking in full sentences. Lung sounds are diminished at the bases Occasional no rales, wheezes Cardiovascular: Regular rate and rhythm with S1-S2. Gastrointestinal: Abdomen is soft, obese, nontender, and nondistended with positive bowel sounds. Skin: Warm and dry. No rash or lesions on limited exam. Extremities: No cyanosis or clubbing. Trace bilateral lower extremity edema. Neurological: Alert. Cranial nerves 2-12 are grossly intact. No gross focal deficits to casual conversation. Psychiatric: Pleasant and cooperative with normal mood and affect. Judgment and insight intact. Objective Data Vital Signs Vital Signs: Vital Signs - 24 hr 04/18/24 12:00 04/18/24 12:00 04/18/24 15:43 Temperature 36.6 C Pulse Rate 60 62 64 Respiratory Rate 18 18 Blood Pressure 126/76 Pulse Oximetry 97 Oxygen Delivery 04/18/24 15:57 04/18/24 16:00 04/18/24 16:00 Temperature 36.3 C L Pulse Rate 60 62 61 Respiratory Rate 18 18 Blood Pressure 130/68 Pulse Oximetry 94 Oxygen Delivery 04/18/24 19:56 04/18/24 19:56 04/18/24 20:00 Temperature Pulse Rate 71 71 Respiratory Rate 15 15 Blood Pressure Pulse Oximetry 97 Oxygen Delivery BiPAP Room Air 04/18/24 20:00 04/18/24 20:00 04/18/24 20:02 Temperature 36.6 C Pulse Rate 71 52 L 65 Respiratory Rate 16 15 Blood Pressure 148/84 H Pulse Oximetry 98 Oxygen Delivery 04/18/24 20:06 04/19/24 00:00 04/19/24 00:00 Temperature 36.4 C Pulse Rate 70 68 64 Respiratory Rate 18 Blood Pressure 133/78 Pulse Oximetry 98 Oxygen Delivery 04/19/24 01:58 04/19/24 02:05 04/19/24 04:00 Temperature Pulse Rate 59 L 63 67 Respiratory Rate 18 18 Blood Pressure Pulse Oximetry Oxygen Delivery 04/19/24 04:00 04/19/24 08:00 04/19/24 08:00 Temperature 36.7 C 36.3 C L Pulse Rate 67 59 L Respiratory Rate 18 14 Blood Pressure 120/55 L 115/54 L Pulse Oximetry 97 97 100 Oxygen Delivery Room Air 04/19/24 08:00 Temperature Pulse Rate 59 L Respiratory Rate Blood Pressure Pulse Oximetry Oxygen Delivery Intake/Output Intake/Output: Intake & Output 04/16/24 04/17/24 04/18/24 04/19/24 23:59 23:59 23:59 23:59 Intake Total 385 700 3889 500 Output Total 3800 2090 3350 950 Balance -3080 -1610 -1480 -450 Meds/Results Medications: Active Medications Generic Name Dose Route Start Last Admin Trade Name Freq PRN Reason Stop Dose Admin Acetaminophen 650 mg 04/12/24 18:42 Acetaminophen 325 Mg Tablet PO Q4H PRN Mild Pain (1-3) or Fever Albuterol 1 puff 04/13/24 00:16 Albuterol Sulfate (*Sp) Aerosol 1 Puff INHALATION Q4-6H PRN shortness of breath or wheezin Albuterol/Ipratropium 3 ml 04/13/24 12:39 Ipratropium 0.5 Mg/Albuterol Sulfate 2.5 Mg Ampul.Neb 3 Ml NEBULIZE Q6HRT PRN Shortness Of Breath Or Wheezing Allopurinol 300 mg 04/13/24 09:00 04/18/24 08:54 Allopurinol 300 Mg Tablet PO 300 mg DAILY ARIAN Administration Aspirin 81 mg 04/13/24 13:25 04/18/24 08:53 Aspirin 81 Mg Enteric Tablet PO 81 mg QAM ARIAN Administration Atorvastatin Calcium 80 mg 04/13/24 09:00 04/18/24 08:53 Atorvastatin 40 Mg Tablet PO 80 mg DAILY ARIAN Administration Benzocaine 1 applic 04/18/24 05:30 Benzocaine 20% Dental Gel 9 Gm Tube BY MOUTH QID PRN Oral Pain Carvedilol 25 mg 04/14/24 21:00 04/18/24 20:06 Carvedilol 25 Mg Tablet PO 25 mg Q12HR ARIAN Administration Dextrose 12.5 gm 04/12/24 20:42 Dextrose 50% 25 Gm/50 Ml Syringe IV PUSH PRN PRN Hypoglycemia Protocol Enoxaparin Sodium 40 mg 04/13/24 09:00 04/18/24 08:56 Enoxaparin 40 Mg/0.4 Ml Syringe SUB-Q 40 mg DAILY ARIAN Administration Famotidine 20 mg 04/13/24 09:00 04/18/24 08:53 Famotidine 20 Mg Tablet PO 20 mg DAILY ARIAN Administration Glucagon 1 mg 04/12/24 18:42 Glucagon For Inj 1 Mg Vial IM PRN PRN Hypoglycemia Protocol Glucose 15 gm 04/12/24 18:42 Glucose Oral Gel 15 Gm Of Glucse In 37.5 Gm Tube PO PRN PRN Hypoglycemia Protocol Hydrocortisone 1 applic 04/12/24 23:28 Hydrocortisone 2.5% Cream 30 Gm Tube TOPICAL TID PRN itching Dextrose 1,000 mls @ 100 mls/hr 04/12/24 20:42 Dextrose 5% 1,000 Ml IVPB PRN PRN Hypoglycemia Protocol Insulin Aspart 3 - 6 units 04/13/24 08:00 04/19/24 08:38 Insulin Aspart (*Bkc) 100 Units/Ml SUB-Q Not Given TIDWM ARIAN Protocol Insulin Aspart 1 - 3 units 04/12/24 21:00 04/18/24 20:07 Insulin Aspart (*Bkc) 100 Units/Ml SUB-Q 1 units HS ARIAN Administration Protocol Insulin Aspart 16 units 04/17/24 12:00 04/18/24 18:05 Insulin Aspart (*Bkc) 100 Units/Ml SUB-Q 16 units TIDWM ARIAN Administration Insulin Glargine 10 units 04/18/24 09:00 04/18/24 08:54 Insulin Glargine (*Bkc) 100 Units/Ml SUB-Q 10 units DAILY ARIAN Administration Ipratropium [place] 0.5 mg 04/12/24 20:00 04/19/24 07:46 Ipratropium Br 0.02% Inh Soln 0.5 Mg/2.5 Ml Vial INHALATION Not Given Q6HRT ARIAN Montelukast Sodium 10 mg 04/13/24 09:00 04/18/24 08:53 Montelukast Sodium 10 Mg Tablet PO 10 mg DAILY ARIAN Administration Ondansetron HCl 4 mg 04/12/24 18:42 Ondansetron Inj 4 Mg/2 Ml Vial IV PUSH Q4H PRN Nausea Pantoprazole Sodium 20 mg 04/13/24 09:00 04/18/24 08:53 Pantoprazole Sod Sesquihydrate 20 Mg Tab PO 20 mg DAILY ARIAN Administration Polyethylene Glycol 17 gm 04/16/24 11:20 04/16/24 13:14 Polyethylene Glycol 3350 17 Gm Powd.Pack PO 17 gm QAM PRN Administration Constipation Fluticasone/Salmeterol 2 puff 04/13/24 08:00 04/19/24 07:44 Fluticasone/Salmeterol 230-21 Mcg Inhaler 1 Puff INHALATION 2 puff Q12HRT ARIAN Administration Spironolactone 25 mg 04/13/24 09:00 04/18/24 08:53 Spironolactone 25 Mg Tablet PO 25 mg DAILY ARIAN Administration Tamsulosin HCl 0.4 mg 04/13/24 21:00 04/18/24 20:06 Tamsulosin Hcl 0.4 Mg Capsule PO 0.4 mg HS ARIAN Administration Valsartan 160 mg 04/13/24 09:00 04/18/24 18:05 Valsartan 160 Mg Tablet PO 160 mg BID ARIAN Administration Radiology Results: ITS Impressions Chest X-Ray 04/12/24 16:59 IMPRESSION: 1. Mild pulmonary edema. 2. Small pleural effusions. 3. Cardiomegaly. Chest CTA 04/12/24 18:40 IMPRESSION: 1. No pulmonary embolism. 2. Bilateral moderate pleural effusion with adjacent atelectasis versus pneumo adriana. 3. Large bulge seen in the spleen unchanged from previous examination. Further evaluation advised to exclude a mass. Abscess or hematoma is less likely although cannot be excluded. Abdomen Ultrasound 04/13/24 08:08 Impression: Diffuse fatty infiltration of liver. 10.4 x 9.4 x 9.9 cm predominantly echogenic, solid splenic mass. This could reflect large splenic hemangioma. Further evaluation with pre and postcontrast MRI should be considered. Labs Labs: Laboratory Results - last 24 hr 04/18/24 04/18/24 04/18/24 12:45 17:11 19:43 WBC RBC Hgb Hct MCV MCH MCHC RDW Plt Count MPV % Immature Plt Fraction Sodium Potassium Chloride Carbon Dioxide Anion Gap BUN Creatinine Estim Creat Clear Calc Estimated GFR Glucose POC Capillary Glucose 216 H 236 H 245 H Calcium 04/19/24 04/19/24 05:04 07:59 WBC 4.9 RBC 4.99 Hgb 13.3 L Hct 42.3 MCV 84.8 MCH 26.7 MCHC 31.4 L RDW 16.4 H Plt Count 153 MPV TNP % Immature Plt Fraction 5.9 Sodium 134 L Potassium 4.2 Chloride 102 Carbon Dioxide 28 Anion Gap 4 BUN 49 H Creatinine 1.80 H Estim Creat Clear Calc 49 Estimated GFR 47 L Glucose 152 H POC Capillary Glucose 144 H Calcium 8.8 Quality VTE Prophylaxis VTE prophylaxis: pharmacologic ordered
[2024-04-19] MEDS: allopurinoL 300 MG TABLET PO (09:19)
[2024-04-19] MEDS: ASPIRIN 81 MG ENTERIC TABLET PO (09:19)
[2024-04-19] MEDS: ATORVASTATIN 40 MG TABLET 80 MG PO (09:19)
[2024-04-19] MEDS: SPIRONOLACTONE 25 MG TABLET PO (09:20)
[2024-04-19] MEDS: PANTOPRAZOLE SOD SESQUIHYDRATE 20 MG TAB PO (09:20)
[2024-04-19] MEDS: carvediloL 25 MG TABLET PO (09:20)
[2024-04-19] MEDS: ENOXAPARIN 40 MG/0.4 ML SYRINGE SUB-Q (09:20)
[2024-04-19] MEDS: MONTELUKAST SODIUM 10 MG TABLET PO (09:20)
[2024-04-19] MEDS: VALSARTAN 160 MG TABLET PO (09:20)
[2024-04-19] MEDS: FAMOTIDINE 20 MG TABLET PO (09:20)
[2024-04-19] MEDS: INSULIN ASPART (*BKC) 100 UNITS/ML 16 UNITS SUB-Q ×2 (09:25→14:02)
[2024-04-19] MEDS: INSULIN GLARGINE (*BKC) 100 UNITS/ML 10 UNITS SUB-Q (09:29)
--- NOTE | 2024-04-19 11:10 | PM.DS ---
DS: Admitting Diagnosis Discharge Date 04/19 Admitting Diagnosis sob DS: Discharge Diagnosis Discharge Diagnosis (1) CHF exacerbation: Code(s): I50.9 - Heart failure, unspecified Status: Acute (2) Asthma: Code(s): J45.909 - Unspecified asthma, uncomplicated Status: Acute (3) Coronary artery disease: Code(s): I25.10 - Atherosclerotic heart disease of [place] coronary artery without angina pectoris Status: Acute (4) Hypertension: Code(s): I10 - Essential (primary) hypertension Status: Acute (5) Splenic cyst: Code(s): D73.4 - Cyst of spleen Status: Acute (6) Type 2 diabetes mellitus: Code(s): E11.9 - Type 2 diabetes mellitus without complications Status: Acute DS: Summary Hospital Course Hospital Course: This is a 63-year-old male with asthma, coronary artery disease hypertension, hyperlipidemia, insulin dependent diabetes, and benign prostatic hyperplasia who presented to the emergency department via private vehicle with complaints of shortness of breath. The patient provides the following history. He has felt more short of breath with exertion over the last several months however has not yet sought treatment as he has been caring for his at home. It is now to the point where he is short of breath at rest and nebulizers and rescue inhalers are not providing him with longstanding benefit. He also endorses lower extremity edema. He denies fever, chills, sweats, productive cough, chest pain, pleuritic pain, orthopnea, paroxysmal nocturnal dyspnea, nausea, vomiting, and diarrhea. Of note he is currently on azithromycin for a dental infection. 04/15- Left heart catheterization showed nonischemic cardiomyopathy with elevated LVEDP Following problems were addressed: Acute on chronic CHF NYHA II-III, stage C EF 25-30% Nonischemic cardiomyopathy History of open heart surgery Type 2 [facility] Hypertension Hyperlipidemia 04/19: -creatinine today 1.8 from 1.9 yesterday-trending down after aggressive diuresis. Will resume furosemide at low dose, 40 mg oral daily -fluid restriction to 1800 mL- discussed with pt to follow at home -continue aspirin, statin -continue beta-jean carlos, ARB, spironolactone at current doses -will add Jardiance for his cardiomyopathy -repeat BMP drawn 1 week after hospital discharge- ordered -close f/u with cardiology # cyst of the spleen ltrasound ordered to evaluate ?large bulge? seen in the spleen, previously thought to be related to cysts. ultrasound: Diffuse fatty infiltration of liver. 10.4 x 9.4 x 9.9 cm predominantly echogenic, solid splenic mass. This could reflect large splenic hemangioma. Further evaluation with pre and postcontrast MRI should be considered. Pt needs an oupt follow up with his PCP to evaluate this further-discussed with pt Status at Discharge Functional status at discharge: independent ambulation Overall status at discharge: patient is progressing back to baseline Time Spent with Patient Time attestation: Total time spent providing and/or coordinating discharge services: Exam Narrative: General: Well-developed, nontoxic-appearing male. Weight: 121.15 kg. BMI: 40.7 HEENT: PERRL, EOMI. Sclera anicteric. Oral mucosa moist. Crowded oropharynx. Neck: Supple. Exam limited due to neck circumference. Respiratory: Respirations are nonlabored and he is speaking in full sentences. Lung sounds are diminished at the bases with scattered crackles. Occasional expiratory wheezes. Cardiovascular: Regular rate and rhythm with S1-S2. Gastrointestinal: Abdomen is soft, obese, nontender, and nondistended with positive bowel sounds. Skin: Warm and dry. No rash or lesions on limited exam. Extremities: No cyanosis or clubbing. Bilateral lower extremity pitting edema. No palpable knots or cords. Neurological: Alert. Cranial nerves 2-12 are grossly intact. No gross focal deficits to casual conversation. Psychiatric: Pleasant and cooperative with normal mood and affect. Judgment and insight intact. DS: Data Data Completed and Pending Labs on day of discharge: Labs from last 24 hours 04/19/24 04/19/24 04/18/24 07:59 05:04 19:43 WBC 4.9 RBC 4.99 Hgb 13.3 L Hct 42.3 MCV 84.8 MCH 26.7 MCHC 31.4 L RDW 16.4 H Plt Count 153 MPV TNP % Immature Plt Fraction 5.9 Sodium 134 L Potassium 4.2 Chloride 102 Carbon Dioxide 28 Anion Gap 4 BUN 49 H Creatinine 1.80 H Estim Creat Clear Calc 49 Estimated GFR 47 L Glucose 152 H POC Capillary Glucose 144 H 245 H Calcium 8.8 04/18/24 04/18/24 17:11 12:45 WBC RBC Hgb Hct MCV MCH MCHC RDW Plt Count MPV % Immature Plt Fraction Sodium Potassium Chloride Carbon Dioxide Anion Gap BUN Creatinine Estim Creat Clear Calc Estimated GFR Glucose POC Capillary Glucose 236 H 216 H Calcium Discharge Plan Discharge Attending physician on discharge: Rocky Lr Consulting providers: Ely Thakkar Discharging Clinician: Risa Morris Patient Disposition: Home, Self-Care Activity: may shower Diet: as tolerated and heart healthy Discharge Instructions: You were admitted for shortness of breath. WE were giving you IV medication to try to get extra water off of you. You were seen per cardiology. ON 04/15, you had Left heart catheterization which showed nonischemic cardiomyopathy. With all the IV diuretics, your kidenys numbers got a little worse but now slowly improving. However, you would need to f/u with pcp/cardiology and have your kidney function lab repeated in 1 week- the order will be given to you to get it done. Please, resume furosemide (lasix) at low dose, 40 mg oral daily -fluid restriction to 1800 ml a day -continue aspirin, statin -continue coreg 25 mh twice a day, valsartan 160 mg twice a day, spironolactone 25 mg daily at current doses -take Jardiance 10 mg in am -repeat BMP drawn 1 week after hospital discharge- ordered -close f/u with cardiology # cyst of the spleen ltrasound ordered to evaluate ?large bulge? seen in the spleen, previously thought to be related to cysts. ultrasound: Diffuse fatty infiltration of liver. 10.4 x 9.4 x 9.9 cm predominantly echogenic, solid splenic mass. This could reflect large splenic hemangioma. Further evaluation with pre and postcontrast MRI should be considered. You need an oupt follow up with his PCP to evaluate this further. Patient Instructions: Antibiotic Form, Moderate Sedation (DC), After Radial Heart Catheterization (GEN) Patient Language: [place] Stand Alone Forms: General Discharge Information Follow-up/Referrals: Christiano Huddleston MD [Physician] - 2 Weeks Johny,Karri Wheeler MD [Primary Care Provider] - 1 Week Discharge Medications: New carvedilol [Coreg] 25 mg Tablet 25 mg PO Q12HR Qty: 60 0RF furosemide 40 mg Tablet 40 mg PO DAILY Qty: 90 0RF Jardiance 10 mg Tablet 10 mg BYMOUTH DAILY Qty: 90 0RF Continued Dulera 200-5 mcg/actuation HFA aerosol inhaler 2 puff inhalation BID Spiriva Respimat 2.5 mcg/actuation mist 2 puff inhalation DAILY omeprazole 10 mg capsule,delayed release(DR/EC) 10 mg PO DAILY spironolactone 25 mg tablet 25 mg PO DAILY valsartan 160 mg tablet 160 mg PO BID atorvastatin 80 mg tablet 80 mg PO DAILY Patient Comments: 1/2 tablet daily Victoza 3-José Manuel 0.6 mg/0.1 mL (18 mg/3 mL) pen injector 0.6 mg subcut DAILY famotidine 20 mg tablet 20 mg PO DAILY montelukast 10 mg tablet 10 mg PO DAILY allopurinol 300 mg tablet 300 mg PO DAILY insulin aspart U-100 [Novolog FlexPen U-100 Insulin] 100 unit/mL (3 mL) insulin pen 16 unit subcut TID Qty: 15 0RF insulin glargine 100 unit/mL (3 mL) insulin pen 50 unit subcut DAILY Qty: 15 0RF albuterol sulfate 2.5 mg /3 mL (0.083 %) solution for nebulization 2.5 mg inhalation Q6H Qty: 90 0RF tamsulosin [Flomax] 0.4 mg capsule 0.4 mg PO HS Qty: 30 0RF hydrocortisone 2.5 % cream 1 applic topical TID PRN (Reason: itching) Qty: 30 0RF albuterol sulfate 90 mcg/actuation aero powdr breath act w/sensor 1 inh INHALATION Q4-6H PRN (Reason: shortness of breath or wheezing) Qty: 1 0RF Discontinued carvedilol 12.5 mg tablet 12.5 mg PO Q12H Rx Instructions: must administer with a meal/food torsemide 20 mg tablet 20 mg PO .twice daily Qty: 60 0RF azithromycin 250 mg tablet 250 mg PO DAILY 4 Days Qty: 4 0RF Rx Instructions: start on day 2 of therapy Other Ambulatory Orders: Basic Metabolic Panel (Routine) Timeframe: 1 Week Location: Determined by Patient Ordered By: Risa Morris Date of admission: 04/15/24 09:13 Primary Care Provider: Johny,Karri Wheeler Admitting Provider: Maximo Nieves Attending physician on admission: Nnanna,Onyema Condition: Stable Quality VTE Prophylaxis VTE prophylaxis: pharmacologic ordered Hospitalist MIPS Heart Failure (Exclusion) Patient has history of Heart Transplant or Left Ventricular Assistive Device?: No IF YES, STOP HERE Heart Failure (Qualifier) Patient has current or prior documentation of LVEF less than or equal to 40%, or mod/servere depressed LVSF?: Yes IF NO, STOP HERE If Yes, Heart Failure (Qualifier) Patient was prescribed or already taking an Angiotensin-Converting Enzyme (ANTONIO) Inhibitor, or Antiotensin Receptor Jean Carlos (ARB): Yes Patient was prescribed or already taking bisoprolol, carvedilol, or sustained release metoprolol succinate: Yes
[2024-04-19] MEDS: EMPAGLIFLOZIN 10 MG TABLET BY MOUTH (11:59)
[2024-04-19 12:00] LABS: Glucose Point of Care 189 mg/dl (65-105)
--- OUTSIDE RECORDS SUMMARY | 2024-04-20 04:53 | XMS_ITS | Data Portability ---
Author Organization [facility] [employer], Main Office Address [address] [place] [address] Assessment No assessment recorded. Plan of Treatment Reminders Order Date Submit Date Provider Last Modified By Organization Details Last Modified Time Details Appointments None recorded. Lab urinalysis , dipstick [address] [facility] [place], [address] [place] [address], [address], [address], 3 15:23:16 urinalysis , dipstick [address] [facility] [place], [address] [place] [address], [address], [address], 3 14:52:44 PSA, total, serum or plasma [email or web address] [place] [address] ([facility]), [address] [place] [address], [address], 3 10:44:34 Referral None recorded. Procedures None recorded. Surgeries None recorded. Imaging None recorded. Medication Orders Flomax 0.4 mg capsule 2022 023 [facility], [address] [place], [address], 3 15:23:23 Patient TargetsNo targets recorded. Patient InstructionsNo instructions recorded. Reason for Referral None Reported. Results Created Date Observation Date Name Description Value Unit Range Abnormal Flag Note LastModifiedBy Organization Detail LastModifiedTime 10/23/1910/22/2022 urina lysis , dipst ick Leukocytes (reference range: negative herbert/??l) Negati ve Not Available [address], [address], 10/22/2022 14:54:40 10/23/19 23 10/22/2022 urina lysis , dipst ick Nitrite (reference rage: negative mg/dl) negati ve Not Available [address] [address], [place], [address], 10/22/2022 14:54:40 10/23/19 23 10/22/2022 urina lysis , dipst ick Urobilinogen (reference range: 0.2-1 mg/dl) 0.2 Not Available [address], [address], 10/22/2022 14:54:40 10/23/19 23 10/22/2022 urina lysis , dipst ick Protein (reference range: negative mg/dl) Negati ve Not Available [address], [address], 10/22/2022 14:54:40 10/23/19 23 10/22/2022 urina lysis , dipst ick pH (reference range: 5-7) 6.0 Not Available [address], [address], 10/22/2022 14:54:40 10/23/19 23 10/22/2022 urina lysis , dipst ick Blood (reference range: negative Rinku/??l) Negati ve Not Available [address], [address], 10/22/2022 14:54:40 10/23/19 23 10/22/2022 urina lysis , dipst ick Specific [place] (reference range: 1.005-1.030) 1.015 Not Available [address], [address], 10/22/2022 14:54:40 10/23/19 23 10/22/2022 urina lysis , dipst ick Ketone (reference range: negative mg/dl) Negati ve Not Available [address], [address], 10/22/2022 14:54:40 10/23/19 23 10/22/2022 urina lysis , dipst ick Bilirubin (reference range: negative mg/dl) Negati ve Not Available [address], [address], 10/22/2022 14:54:40 10/23/19 23 10/22/2022 urina lysis , dipst ick Glucose (reference range: negative mg/dl) 1000 Not Available [address], [address], 10/22/2022 14:54:40 10/23/19 23 10/22/2022 urina lysis , dipst ick Appearance Clear Not Available [address], [address], 10/22/2022 14:54:40 10/23/19 23 10/22/2022 urina lysis , dipst ick Color Yellow Not Available [address], [address], 10/22/2022 14:54:40 11/20/1911/19/2022 urina lysis , dipst ick Leukocytes (reference range: negative herbert/??l) Negati ve Not Available [address] [address], [place], [address], 11/19/2022 13:57:00 11/20/19 23 11/19/2022 urina lysis , dipst ick Nitrite (reference rage: negative mg/dl) negati ve Not Available [address], [address], 11/19/2022 13:57:00 11/20/19 23 11/19/2022 urina lysis , dipst ick Urobilinogen (reference range: 0.2-1 mg/dl) 0.2 Not Available [address], [address], 11/19/2022 13:57:00 11/20/19 23 11/19/2022 urina lysis , dipst ick Protein (reference range: negative mg/dl) Small Not Available [address], [address], 11/19/2022 13:57:00 11/20/19 23 11/19/2022 urina lysis , dipst ick pH (reference range: 5-7) 6.0 Not Available [address], [address], 11/19/2022 13:57:00 11/20/19 23 11/19/2022 urina lysis , dipst ick Blood (reference range: negative Rinku/??l) Negati ve Not Available [address], [address], 11/19/2022 13:57:00 11/20/19 23 11/19/2022 urina lysis , dipst ick Specific [place] (reference range: 1.005-1.030) 1.010 Not Available [address], [address], 11/19/2022 13:57:00 11/20/19 23 11/19/2022 urina lysis , dipst ick Ketone (reference range: negative mg/dl) Negati ve Not Available [address], [address], 11/19/2022 13:57:00 11/20/19 23 11/19/2022 urina lysis , dipst ick Bilirubin (reference range: negative mg/dl) Negati ve Not Available [address], [address], 11/19/2022 13:57:00 11/20/19 23 11/19/2022 urina lysis , dipst ick Glucose (reference range: negative mg/dl) Negati ve Not Available [address], [address], 11/19/2022 13:57:00 11/20/19 23 11/19/2022 urina lysis , dipst ick Appearance Clear Not Available [address], [address], 11/19/2022 13:57:00 11/20/19 23 11/19/2022 urina lysis , dipst ick Color Yellow Not Available [facility] [place] [address] [facility], [address], [place], [address], 11/19/2022 13:57:00 11/20/19 23 11/19/2022 XR, kidne y + urete r + bladd er No observ ation record ed. [email or web address] [facility] [address] [facility] [place], [address], 11/19/2022 14:48:31 Result Notes None recorded. Problems Name Problem SNOMED Code Status Onset Date Resolution Date Notes Provider Name and Address Organization Details Recorded Time Acute urinary tract infection 375834826 Active 2022 Tolu Mendoza MD [address], [facility] [address], [place], [address], [employer] [facility] [employer] 3 15:21:53 Lower urinary tract symptoms due to benign prostatic hypertrophy 0086642219852 1 Active 2022 Tolu Mendoza MD [address] [facility], [facility] [address], [place], [address], [employer] 3 15:22:13 Kidney stone 08263216 Active 2022 Tolu Mendoza MD [address], [facility] [address], [place], [address], [employer] [facility] [employer] 3 15:22:54 Benign prostatic hyperplasia 789804740 Active 2022 Jeana Dunbar null, [employer] [facility] [employer] 3 14:51:49 Benign prostatic hyperplasia 338800852 Active 2022 Tolu Mendoza MD [address] [facility], [address], [address], [employer] [facility] [employer] 3 14:52:23 Problem Notes None recorded. Procedures Surgical History Date Name Laterality Status Provider Name and Address Organization Details Recorded Time extracorporeal shockwave lithotripsy completed STEPAN Bob [employer] [facility] [employer] 10/22/2022 14:55:40 Imaging Results Imaging Date Name Status LastModified by Organiz ation Details LastModified Time 11/19/2022 XR, kidney + ureter + bladder completed [email or web address] [facility] [address] [place], [address], 11/19/2022 14:48:31 Procedure Notes None recorded. Medical Equipment None Reported. Allergies No known drug allergies Medications Name Sig Start Date Stop Date Status Note LastModified by Organization Details LastModified Time amoxicillin 500 mg capsule TAKE 1 CAPSULE BY MOUTH THREE TIMES DAILY FOR 10 DAYS 10/22 completed Not Available Not Available Not Available ibuprofen 800 mg tablet TAKE 1 TABLET BY MOUTH TWICE DAILY FOR 10 DAYS 10/22 completed Not Available Not Available Not Available ciprofloxac in 500 mg tablet TAKE 1 TABLET BY MOUTH EVERY 12 HOURS FOR 4 WEEKS 10/22 completed Not Available Not Available Not Available ketorolac 0.5 % eye drops INSTILL 1 DROP THREE TIMES DAILY STARTING 2 DAYS BEFORE SURGERY, CONTINUE FOR 2 WEEKS AFTER active Not Available Not Available No t Available prednisolon e acetate 1 % eye drops,suspe nsion INSTILL 1 DROP THREE TIMES DAILY STARTING AFTER SURGERY, CONTINUE FOR 3 WEEKS active Not Available Not Available No t Available tamsulosin 0.4 mg capsule Take 1 capsule by mouth once daily active Not Available Not Available No t Available ciprofloxac in 0.3 % eye drops INSTILL 1 DROP THREE TIMES DAILY INTO SURGICAL EYE BEGINNING 2 DAYS PRIOR TO SURGERY, CONTINUIN G FOR 1 WEEK AFTER active Not Available Not Available No t Available Vitals Date Recorded Body height Provider Name an d Address Organization Details Last Updated DateTime 10/22/2022 172.72 cm STEPAN Bob [facility] [employer] 10/22/2022 14:51:22 Date Recorded Heart rate Body temperature Body mass index (BMI) Body weight Oxygen saturation Oxygen saturation in Arterial blood by Pulse oximetry Systolic blood pressure Diastolic blood pressure Provider Name and Address Organization Details Last Updated DateTime 3 83 /min 98.8 [degF] 39.8 kg/m2 842451. 2 g 96 % 96 % 148 mm[Hg] 75 mm[Hg] Tatyana Eli MA [facility] [employer] 3 15:03:12 Date Recorded Body height Provider Name an d Address Organization Details Last Updated DateTime 11/19/2022 172.72 cm STEPAN Bob [place] - [facility] [employer] 11/19/2022 13:56:02 Date Recorded Heart rate Body temperature Body mass index (BMI) Body weight Oxygen saturation Oxygen saturation in Arterial blood by Pulse oximetry Systolic blood pressure Diastolic blood pressure Provider Name and Address Organization Details Last Updated DateTime 3 84 /min 98.6 [degF] 40.6 kg/m2 823656. 16 g 97 % 97 % 158 mm[Hg] 85 mm[Hg] Tatyana Eli [place] - [employer] 3 14:44:14 Social History Question Answer Notes LastModified by Organizat ion Details LastModified Time What Was The Date Of Your Most Recent Tobacco Screening? 11/19/2022 [email or web address] Information not available 11/19/2022 Sex: Unknown Functional Status None recorded. Mental Status None recorded. Family History Nothing Reported. Medical History Condition Response DIABETES, TYPE Y ASTHMA Y HYPERTENSION Y Past Encounters Encounter ID Performer Location Encounter Start Date Encounter Closed Date Diagnosis/Indication Diagnosis SNOMED-CT Code Diagnosis ICD10 Code Diagnosis Note [id number] Tolu Mendoza MD [facility] [address], [address] [address] 10/22/2022 14:19:41 10/22/2022 15:19:21 Acute urinary tract infection 302019908 N39.0 Doing fine, suggested he could stop his cipro. Lower urin maliha tract symptoms due to benign prostatic hypertrophy 8364342044 9101 N40.1 Better with treating uti, suggested he avoid constipati on and continue flomax. Kidney stone 50208076 N2 0.0 No symptoms, check kub [id number] Tolu Mendoza MD [facility] [address], [address] [address] 11/19/2022 13:40:15 11/19/2022 14:53:43 Kidney stone 17422160 N20.0 No symptoms, kub negative for stones. Benign pro static hyperplasia 790488347 N40.0 Doing fine on flomax, check psa prior to next appt. Health Concerns Section Related Observation LastModified by Organization Detai ls LastModified Time None Recorded Concern Status LastModified by Organization Details LastModified Time None Recorded Advance Directives Directive None Recorded Payers Encounter Date Sequence Insurance Name Policy Number Policy Nichols Covered Member ID Nichols Member ID Guarantor Name 10/22/2022 1 [facility] ON OR AFTER 10/12/20 (MEDICAID REPLACEMENT - HMO) Desmond Mcclelland [id number] Desmond Mcclelland 11/19/2022 1 [facility] ON OR AFTER 10/12/20 (MEDICAID REPLACEMENT - HMO) Desmond Mcclelland [id number] Desmond Mcclelland Notes Date Note Type Note Provider Name and Address Organization Details Recorded Time 10/22/2022 text/html BPH (benign prostatic hyperplasia)Report ed bypatient.Notes:Pt was in ER 10/06 with constipation and dysuria , voiding small amounts, found to have uti , enterobacter. He was sent home on cipro and flomax. He had to disempact himself. He is voiding fine now, good stream, nocturia x4 , no dysuria or hematuria. He has hx of stones removed 5 yr ago. No prior utis. He has some irritation of penis. Tolu Mendoza MD [address], [facility] [address], [place], [address], [employer] 10/22/2022 15:23:40 11/19/2022 text/html BPH (benign prostatic hyperplasia)Report ed bypatient.Notes:Pt was in ER 10/06 with constipation and dysuria , voiding small amounts, found to have uti , enterobacter. He was sent home on cipro and flomax. He had to disempact himself. He is voiding fine now, good stream, nocturia x4 , no dysuria or hematuria. He has hx of stones removed 5 yr ago. No prior utis. He has some irritation of penis.11/19/22Pt is doing fine with flomax, no more straining, gets up twice at night, no dysuria or hematuria. Stream is fine. Tolu Mendoza MD [address], [address], [place], [address], [employer] 11/19/2022 14:52:47
--- OUTSIDE RECORDS SUMMARY | 2024-04-20 04:54 | XMS_ITS ---
Author Name [facility] [place] [facility] [place] [facility] [place] [facility] [place] Address [address] [place] [address] Care Team Providers Care Undertaker Helper Name Role Phone SHAMA LILLY Primary Care Provider Unavailabl e Insurance Providers: All historical and current Section Date Range: From patient's date of to the date document was created. This section includes the names of all active insurance providers for the patient. Insurance Provider Type of Coverage Plan Name Start of Policy Coverage End of Policy Coverage Group Number Member ID Insurance Provider's Telephone Number Policy Nichols's Name Patient's Relationship to Policy Nichols [facility] Oct 29, 2012 Dec 27, 2026 [facility] [id number] [phone] ALEC MCCLELLAND PATIENT [facility] Oct 29, 2012 Dec 27, 2026 [facility] [id number] ALEC MCCLELLAND PATIENT Selected Encounter This section includes the information on record at [place] for the Encounter. Date/Time Encounter Type Encounter Description Reason Provider Source Apr 24, 2023 10:00 AM [facility] ASSMT/REASSESSME NT TELEPHONE/ANCILLA RY ICD-10-CM Z63.6 Dependent relative needing care at home SHARMIN JAMES Encounter Template Text not used by [place] Assessments - Encounter Diagnoses This section includes the primary and secondary diagnoses documented for the Encounter. Date/Time Primary/Secondary Diagnosis Diagnosis Name Provider Source Apr 24, 2023 10:00 AM PRIMARY Dependent relative needing care at home ARABELLA DASILVA [facility] Plan of Treatment: Future Appointments (+ 6 months) and Future Tests (+/- 45 days) The Plan of Treatment section includes future care activities for the patient from all [place] treatmentfacilities. This section includes future appointments and future orders which are active, pending or scheduled. Future Appointments This section includes appointments that were scheduled to occur 6 months from the date of the Encounter, up to a maximum of 20 appointments. The data comes from all [place] treatment facilities. Appointment Date/Time Appointment Type Appointme nt Facility Name May 15, 2023 10:30 AM AMBULATORY - MEDICINE [facility] Jun 25, 2023 09:30 AM AMBULATORY MEDICINE [facility] Jul 08, 2023 01:30 PM [facility]INE [facility] Jul 30, 2023 10:30 AM AMBULATORY - MEDICINE [facility] Sep 29, 2023 02:00 PM AMBULATORY - MEDICINE [facility] Lab Results: +/- 30 days of the encounter This section includes the Chemistry and Hematology Lab Results on record with [place] for the patient. Radiology Reports and Pathology Reports are provided separately, in subsequent sections. Lab Results This section contains the Chemistry/Hematology Results that were resulted 30 days before or 30 daysafter the date of the Encounter. Date/Time Source Result Type Result - Unit Interpretation Reference Range Comment Apr 01, 2023 11:52 AM [facility] BRAIN NATRIURETIC PEPTIDE Specimen Type: PLASMA No comment entered. Ordering Provider: DREW WALL Report Released Date/Time: Apr 01, 2023 10:56 AM Reporting Lab: [facility] [address] [id number] Performing Lab: [facility] [address] [facility] [id number] BRAIN NATRIURETIC PEPTIDE 340.4 pg/mL H 0-100 Apr 01, 2023 11:52 AM [facility] BASIC METABOLIC PANEL Specimen Type: PLASMA Comment: No hemolysis noted. Ordering Provider: DREW WALL Report Released Date/Time: Apr 01, 2023 10:56 AM Reporting Lab: [facility] [address] [facility] [address] Performing Lab: [facility] [address] [id number] CREATININE 1.37 mg/dL H 0.7-1.3 UREA NITROGEN 14.2 mg/dL 9.0-25.0 GLUCOSE 206 mg/dL H 72-99 SODIUM 141 meq/L 136-145 POTASSIUM 3.4 meq/L L 3.5-5 CHLORIDE 106 meq/L 98-107 CARBON DIOXIDE 25 meq/L 22-31 CALCIUM 8.7 mg/dL 8.4-10.4 EGFR (CKD-EPI 2020) 58.7 >60 Social History: Smoking Status (Most current) and Tobacco Use (All prior to encounter date) This section includes the most current, and the historical, smoking and tobacco- related health factors from the [place] facility where the Encounter took place. Current Smoking Status This section includes the most current smoking, or tobacco-related health factor, from the [place] facility where the Encounter took place. Date/Time Current Smoking Status Comment Arnulfo chacko Jan 06, 2023 02:41 PM VA-TOBACCO NEVER USED [facility] Tobacco Use History This section includes a history of the smoking, or tobacco-related health factors, that were collected on or before the date of the Encounter. The data comes from the [place] facility where the Encounter took place. Date/Time Smoking Status/Tobacco Use Comment F acility Jul 06, 2019 01:16 AM ORYX ADMIT TOBACCO SCREEN NO [facility] Feb 16, 2019 10:39 PM ORYX ADMIT TOBACCO SCREEN NO [facility] Nov 20, 2015 11:29 AM CURRENT TOBACCO USER [facility] Nov 20, 2015 11:29 AM TOBACCO MEDS OFFER ED BUT DECLINED [facility] Dec 26, 2014 09:53 AM CURRENT TOBACCO USER [facility] Dec 26, 2014 09:53 AM TOBACCO MEDS OFFER ED BUT DECLINED [facility] Advance Directives: All historical and current Section Date Range: From patient's date of to the date document was created. This section includes ALL of a patient's completed or amended [place] Advance and Rescinded Directives. The entries below indicate that a directive exists for the patient, but an actual copy is not included with this document. The data comes from all [place] facilities. Date Advance Directives Provider Source Jul 06, 2019 ADVANCE DIRECTIVE DISCUSSION LIBIAJJ VENTURA [facility] Encounter Notes: All associated encounter notes This section contains the clinical notes associated to the Encounter. Date/Time Encounter Note(s) Provider Source Apr 24, 2023 09:00 AM CAREGIVER CERTIFIC ATE: LOCAL TITLE: [facility] CAREGIVER ASSESSMENT STANDARD TITLE: CAREGIVER CERTIFICATE DATE OF NOTE: APR 24, 2023@09:00 ENTRY DATE: APR 24, 2023@09:05:49 AUTHOR: ARABELLA DASILVA COSIGNER: SHARMIN JAMES URGENCY: STATUS: COMPLETED Program of Comprehensive Assistance for Family Caregivers Caregiver Assessment As part of the Program of Comprehensive Assistance for Family Caregivers, Family Caregiver/applicant(s) complete an assessment during the application and/or reassessment process. The caregiver assessment is conducted to obtain information at it relates to the needs of the caregiver. Caregiver Support Program (CSP) staff provide information on available resources and answer questions related to the program. Date of Assessment: Apr Identify the caregiver using Full Name and one of the other hernandez identifiers Full Name: JAHAIRA MCCLELLAND Brad SSN: [id number] Date of : Dec Address: [address] [place] [address] The caregiver assessment is being conducted as part of the: Application Process The patient was contacted using the telephone. Type of Family Caregiver/applicant: Primary Family Caregiver/applicant being cared for: Charlotte Mcclelland CAREGIVER INFORMATION Caregiver/applicant is at least 18 years of age or older: Yes Caregiver/applicant is a family member of the or caregiver lives maritime pilot with the or will agree to do so if designated as a Family Caregiver: Yes Relationship to : Spouse Caregiver's Insurance Status: Medicaid CAREGIVER RESPONSIBILITIES Employment - Not applicable Comment: Providing care for [place] School: Not Applicable Caregiver for Others: Not Applicable Volunteer Work: No CAREGIVER HISTORY Caregiver denies past caregiving experience. Caregiver denies receiving/attending caregiving training/education. 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 Length of time caregiver reports caring for the [place]: Longer than 5 years Comment: 6 years ago when lost her vision. Provisions in place to assist the at home: None Caregiver's report of how a typical day is spent: CG reports waking up, checking blood pressure, and takes his medications. He let's wake up on her own. Then he helps her brush her teeth, helps her get dressed, makes her breakfast and feeds her. After that, they watch TV, talk about past experiences, or listen to radio. [place] will ask if she needs something from the store. If no, they will stay home, eat meals, watch TV, and then go to bed. Ways in which caregiver role affects the caregiver's everyday life: CG denies any impacts on his everyday life. Caregiver's description of their social support system: CG reports talking with as his social support system. Caregiver reports use of the following self-care strategies: CG reports cutting the grass during the summer or working on his car as ways he self-cares. Caregiver reports he/she does not receive regular assistance in providing care to the . The Caregiver denies use or receipt of any supportive services or programs. Caregiver reports needing the following additional knowledge and/or support: CG denies needing any additional knowledge/support. CAREGIVER ASSESSMENT The Caregiver has not experienced any recent changes in his/her physical or mental health. The Caregiver does not have any concerns about his/her physical or emotional health. The Caregiver reports no current or past physical or mental health conditions that would adversely affect his/her ability to provide personal care services. Clinical observations: CG was alert and oriented x3 with calm mood and congruent affect. Logical, coherent thought processes with no unusual thought content. CG does not present at imminent risk of harm to self or others at this time. CG denies SI/HI when asked directly. PHQ-2 A PHQ-2 screen was performed. The score was 0 which is a negative screen for depression. Over the past two weeks, how often have you been bothered by the following problems? 1. Little interest or pleasure in doing things Not at all 2. Feeling down, depressed, or hopeless Not at all Zarit Choudrant Interview Zarit Choudrant Interview (Caregiver burden scale), copyright 1990 by Phi Daly and Kristen Daly, with permission to use. ZBI Screening score (range 0-16): Score is 0, which reflects low caregiver burden (scores of less than 8). 1. Do you feel that because of the time you spend with your relative that you do not have enough time for yourself? Never 2. Do you feel stressed between caring for your relative and trying to meet other responsibilities (work/family)? Never 3. Do you feel strained when you are around your relative? Never 4. Do you feel uncertain about what to do about your relative? Never The Caregiver reports that there are no current or past concerns regarding IPV domestic violence or safety. The caregiver reports currently feeling safe in their home. The Caregiver does not report any current legal concerns. The following legal services are needed: None The Caregiver does not report any current personal financial planning concerns. The following financial services are needed: None Caregiver strengths and coping skills: CG reports taking care of and wants to be around for their grandkids. Caregiver challenges and stressors: CG denies any current challenges and stressors. Interventions/Plan (referrals, resources, education, etc.): TBBS and [place] Alert Summary: CG was actively engaged in Caregiver Assessment. He denied any medical or mental health conditions that would negatively impact his ability to provide care to . CG reported having no areas of his life impacted by caregiving. CG readily identified his self-care strategies and his /[place] as his support. His ZBI screen indicated low caregiver burden at this time. Time spent in session: 38 minutes /darwin/ ARABELLA DASILVA Kitchen And Bath Designer Signed: 04/24/2023 11:39 /es/ Sharmin ORTIZ LCSW Kitchen And Bath Designer, NHUNG/DEBBIE Cosigned: 04/29/2023 09:50 ARABELLA DASILVA [facility]
--- OUTSIDE RECORDS SUMMARY | 2024-04-20 04:54 | XMS_ITS | Continuity of Care Document ---
Author Name [facility] Organization [facility] Care Team Providers Care Hotel Security Officer Name Role Phone [facility] Unavailable Unavailable Problems Combined list of problems from Department of Defense and Veterans Affairs facilities. It does not include entries that were removed or entered in error. Problem Status Onset Date Problem Type Date of Resolution Comments Source Asthma Active Condition Jan 16 Entered By: TABITHA ROD Comment: 01/13/20 pulmonary function testing: mild restrictive abnormality [facility] Benign essential hypertension Active Condition [facility] CHF - Congestive Heart Failure ([facility] [id number]) Active Condition [facility] Chronic kidney disease stage 3A Active Condition Dec 23 Entered By: TABITHA ROD Comment: 12/24/19 bilateral renal ultrasound [facility] Chronic obstructive lung disease Active Condition [facility] Gastroesophageal reflux disease Active Condition [facility] Gout Active Condition [facility] Headache Active Condition [facility] Hyperlipidemia Active Condition [facility] Obesity ([facility] [id number]) Active Condition [facility] Obstructive Sleep Apnea Syndrome ([facility] [id number]) Active Condition Feb 01, 2020 Entered By: TABITHA ROD Comment: 11/08/19 split night sleep study: severe obstuctive sleep apnea, cpap 13 cm h2o with heated humidifier and mask [facility] Polyp of colon Active Condition [facility] Type 2 diabetes mellitus Active Condition [facility] Vitamin D Deficiency ([facility] [id number]) Active Condition [facility] Asthma Inactive Condition 12/23/2023 [facility] Chronic prostatitis Inactive Condition 07/09/2023 [facility] Cough ([facility] [id number]) Inactive Condition 07/09/[address] [facility] Hemangioma of spleen Inactive Condition 07/09/[address] [facility] Kidney Stone ([facility] [id number]) Inactive Condition 07/09/2023 May 20, 2019 Entered By: TABITHA ROD Comment: 04/27/19 calcium oxalate stone analysis [facility] OA - Osteoarthritis ([facility] [id number]) Inactive Condition 07/09/2023 Sep 28, 2020 Entered By: TABITHA ROD Comment: 09/28/20 lumbar spinal radiograph: lumbar spinal osteoarthritis with no acute fracture [facility] Past history of procedure Inactive Condition 07/09/2023 May 20, 2019 Entered By: TABITHA ROD Comment: 02/16/19 cystoscopy, bilateral ureteral stent placement, transurethral unroofing of prostatic abscessFeb 2019 Entered By: TABITHA ROD Comment: 04/27/19 cystoscopy, left ureteroscopy, laser lithotripsy, and stent exchangeFeb 2019 Entered By: TABITHA ROD Comment: 02/18/19 splenic hemangioma biopsyFeb 2019 Entered By: TABITHA ROD Comment: 2000 cardiac surgery (congenital heart defect; hole closure)May 20, 2019 Entered By: TABITHA ROD Comment: 1991 right femur fracture open reduction internal fixationDec 24, 2019 Entered By: TABITHA ROD Comment: 12/21/19 cystoscopy, right ureteroscopy, laser lithotripsy, stent exchange [facility] Prostatic abscess Inactive Condition 07/09/2023 [facility] Tobacco dependence, continuous Inactive Condition 11/12/2019 [facility] Diagnosis: ICD-10-CM Z76.0 Encounter for issue of repeat prescription Active Diagnosis [facility] Diagnosis: ICD-10-CM Z12.2 Encntr screen for malignant neoplasm of respiratory organs Active Diagnosis [facility] Diagnosis: ICD-10-CM J44.9 Chronic obstructive pulmonary disease, unspecified Active Diagnosis [facility] Diagnosis: ICD-10-CM I50.9 Heart failure, unspecified Active Diagnosis [facility] Diagnosis: ICD-10-CM N18.31 Chronic kidney disease, stage 3a Active Diagnosis [facility] Diagnosis: ICD-10-CM J45.998 Other asthma Active Diagnosis [facility] Diagnosis: ICD-10-CM J45.909 Unspecified asthma, uncomplicated Active Diagnosis [facility] Diagnosis: ICD-10-CM J45.41 Moderate persistent asthma with (acute) exacerbation Active Diagnosis [facility] Diagnosis: ICD-10-CM E78.5 Hyperlipidemia, unspecified Active Diagnosis [facility] Diagnosis: ICD-10-CM Z63.6 Dependent relative needing care at home Active Diagnosis [facility] Diagnosis: ICD-10-CM R05.1 Acute cough Active Diagnosis [facility] Diagnosis: ICD-10-CM I10 Essential (primary) hypertension Active Diagnosis [facility] Diagnosis: ICD-10-CM N18.9 Chronic kidney disease, unspecified Active Diagnosis [facility] Diagnosis: ICD-10-CM E11.9 Type 2 diabetes mellitus without complications Active Diagnosis [facility] Diagnosis: ICD-10-CM N18.32 Chronic kidney disease, stage 3b Active Diagnosis [facility] Diagnosis: ICD-10-CM Z00.00 Encntr for general adult medical exam w/o abnormal findings Active Diagnosis [facility] Medications Combined list of outpatient medications from Department of Defense and [facility] Affairs facilities.Medications provided include 1) outpatient medications from the last 15 months, and 2) patient-reported medications. Medication Details Route Status Patient Instructions Prescription Expires Prescription Number Last Dispense Date Ordering Provider Order Date Order Qty Source ALBUTEROL SO4 0.083% INHL,3ML INHALE 1 VIAL (2.5MG/3 ML) BY NEBULIZA TION EVERY 6 HOURS DIRECTED NEEDED FOR EXERCISE -INDUCED BRONCHOS PASM NEBULI ZATION ACTIVE 10/01/2024 [id number] 4 BIANCA RIVERA 2023 120 [facility] ALBUTEROL SO4 0.083% INHL,3ML INHALE 1 VIAL (2.5MG/3 ML) BY NEBULIZA TION EVERY 6 HOURS DIRECTED NEEDED FOR EXERCISE -INDUCED BRONCHOS PASM NEBULI ZATION DISCONT INUED 09/29/2024 [id number] 4 [facility] 2023 120 [facility] ALBUTEROL SO4 0.083% INHL,3ML INHALE 1 VIAL (2.5MG/3 ML) BY NEBULIZA TION EVERY 6 HOURS DIRECTED NEEDED FOR EXERCISE -INDUCED BRONCHOS PASM NEBULI ZATION 07/31/2023 [id number] 4 [facility] 2022 120 [facility] ALBUTEROL SO4 90MCG/ACTUA T (CFC-F) INHL,ORAL,8 .5GM INHALE 2 PUFFS ORAL INHALATI ON FOUR TIMES A DAY NEEDED FOR EXERCISE -INDUCED BRONCHOS PASM SHAKE WELL. RINSE MOUTHPIE CE FREQUENT LY TO PREVENT CLOGGING . RESPIR ATORY (INHAL ATION) ACTIVE 09/29/2024 [id number] 4 [facility] 2023 1 [facility] ALBUTEROL SO4 90MCG/ACTUA T (CFC-F) INHL,ORAL,8 .5GM INHALE 2 PUFFS BY ORAL INHALATI ON FOUR TIMES A DAY NEEDED SHAKE WELL. RINSE MOUTHPIE CE FREQUENT LY TO PREVENT CLOGGING . RESPIR ATORY (INHAL ATION) 08/28/2023 [id number] 4 [facility] 2022 1 [facility] ALLOPURINOL 300MG TAB TAKE ONE TABLET BY MOUTH ONCE A DAY TAKE WITH PLENTY OF WATER. ORAL ACTIVE 07/09/2024 [id number] 4 CHARITO LILLY LBVijay R [address] [facility] ALLOPURINOL 300MG TAB TAKE ONE TABLET BY MOUTH ONCE A DAY FOR GOUT TAKE WITH PLENTY OF WATER. ORAL 06/19/2023 [id number] 3 ME CODEY TTISA 20[address] [facility] ASPIRIN 81MG TAB,CHEWABL E CHEW AND SWALLOW ONE TABLET BY MOUTH ONCE A DAY ORAL ACTIVE aMry Carmen CAMPOS [address] [facility] ATORVASTATI N CA 80MG TAB TAKE ONE-HALF TABLET BY MOUTH EVERY EVENING FOR CHOLESTE ROL. REPORT ANY UNEXPLAI RENETTA MUSCLE PAIN/WEA KNESS TO PROVIDER . ORAL ACTIVE 01/30/2025 [id number] 4 Azeem HOLLIS [address] [facility] ATORVASTATI N CA 80MG TAB TAKE ONE-HALF TABLET BY MOUTH EVERY EVENING FOR CHOLESTE ROL. REPORT ANY UNEXPLAI RENETTA MUSCLE PAIN/WEA KNESS TO PROVIDER . ORAL DISCONT INUED 01/14/2024 [id number] 4 KRUPA HILLMAN 2022 45 [facility] CARVEDILOL 12.5MG TAB TAKE ONE-HALF TABLET BY MOUTH TWICE A DAY TAKE WITH FOOD. ORAL 04/01/2024 [id number] 4 Bowen WALL 2022 90 [facility] CICLESONIDE 160MCG/SPRA Y INHL,ORAL,6 .1GM INHALE 1 PUFF ORAL INHALATI ON TWICE A DAY RESPIR ATORY (INHAL ATION) ACTIVE 03/10/2025 [id number] 4 BIANCA RIVERA 2023 1 [facility] CICLESONIDE 160MCG/SPRA Y INHL,ORAL,6 .1GM INHALE 1 PUFF ORAL INHALATI ON TWICE A DAY FOR ASTHMA RESPIR ATORY (INHAL ATION) DISCONT INUED (EDIT) 06/25/2024 [id number] 4 BIANCA RIVERA 2023 1 [facility] EMPAGLIFLOZ IN 25MG TAB TAKE ONE-HALF TABLET BY MOUTH ONCE A DAY ORAL 04/01/2024 [id number] 4 Bowen WALL 2022 30 [facility] FORMOTEROL FUM DIHYD 5MCG/MOMETA SONE FUR 200MCG INHL,ORAL,1 3GM INHALE 2 INHALATI ONS BY ORAL INHALATI ON TWICE A DAY DIRECTED FOR BREATHIN G. RINSE MOUTH AND SPIT AFTER USE. DO NOT EXCEED 4 INHALATI ONS PER 24 HOURS. RESPIR ATORY (INHAL ATION) DISCONT INUED BY PROVIDE R 03/11/2024 [id number] 3 BIANCA RIVERA 2022 1 [facility] HYDRALAZINE HCL 100MG TAB TAKE ONE TABLET BY MOUTH THREE TIMES A DAY FOR BLOOD PRESSURE ORAL 02/11/2024 [id number] 4 Bowen WALLALEC S 2022 270 [facility] INSULIN,ASP ART,HUMAN (EQV-NOVOLO G) 100 UNIT/ML,FLE XPEN,3ML INJECT 18 UNITS UNDER THE SKIN BEFORE BREAKFAS T AND INJECT 18 UNITS BEFORE LUNCH AND INJECT 18 UNITS BEFORE SUPPER FOR BLOOD SUGAR CONTROL. ADMINIST ER 10 MINUTES BEFORE FOOD DIRECTED . REFRIGER ATE UN-OPENE D PENS. DISCARD CARTRIDG E 28 DAYS AFTER OPENING. SUBCUT ANEOUS ACTIVE 12/23/2024 [id number] 4 CHARITO LILLY R 20[address] [facility] INSULIN,ASP ART,HUMAN (EQV-NOVOLO G) 100 UNIT/ML,FLE XPEN,3ML INJECT 16 UNITS UNDER THE SKIN BEFORE BREAKFAS T AND INJECT 16 UNITS BEFORE LUNCH AND INJECT 16 UNITS BEFORE SUPPER FOR BLOOD SUGAR CONTROL. ADMINIST ER 10 MINUTES BEFORE FOOD DIRECTED . REFRIGER ATE UN-OPENE D PENS. DISCARD CARTRIDG E 28 DAYS AFTER OPENING. SUBCUT ANEOUS DISCONT INUED (EDIT) 07/03/2024 [id number] 4 CHARITO LILLY R 20[address] [facility] INSULIN,ASP ART,HUMAN (EQV-NOVOLO G) 100 UNIT/ML,FLE XPEN,3ML INJECT 16 UNITS UNDER THE SKIN BEFORE BREAKFAS T AND INJECT 16 UNITS BEFORE LUNCH AND INJECT 16 UNITS BEFORE SUPPER FOR BLOOD SUGAR CONTROL. ADMINIST ER 10 MINUTES BEFORE FOOD DIRECTED . REFRIGER ATE UN-OPENE D PENS. DISCARD CARTRIDG E 28 DAYS AFTER OPENING. SUBCUT ANEOUS DISCONT INUED 01/14/2024 [id number] 3 CODEY TTISA [address] [facility] INSULIN,GLA RGINE,HUMAN 100 UNIT/ML INJ,SOLOSTA R,3ML INJECT 50 UNITS UNDER THE SKIN ONCE A DAY FOR BLOOD SUGAR CONTROL. ADMINIST ER AT SAME TIME EACH DAY DIRECTED . DISCARD ANY OPEN CARTRIDG E AFTER 28 DAYS. SUBCUT ANEOUS 04/11/2024 [id number] 4 CHARITO LILLY LBVijay R 2023 5 [facility] INSULIN,GLA RGINE-YFGN 100UNIT/ML INJ PEN,3ML INJECT 50 UNITS UNDER THE SKIN ONCE A DAY FOR BLOOD SUGAR CONTROL. ADMINIST ER AT SAME TIME EACH DAY DIRECTED . DISCARD ANY OPEN CARTRIDG E AFTER 28 DAYS. SUBCUT ANEOUS ACTIVE 06/19/2024 [id number] 4 ME CODEY TTISA 2023 15 [facility] INSULIN,GLA RGINE-YFGN 100UNIT/ML INJ PEN,3ML INJECT 50 UNITS UNDER THE SKIN ONCE A DAY FOR BLOOD SUGAR CONTROL. ADMINIST ER AT SAME TIME EACH DAY DIRECTED . DISCARD ANY OPEN CARTRIDG E AFTER 28 DAYS. SUBCUT ANEOUS DISCONT INUED 12/12/2023 [id number] 3 CODEY TTISA 2022 15 [facility] MONTELUKAST NA 10MG TAB TAKE ONE TABLET BY MOUTH EVERY EVENING FOR ASTHMA ORAL ACTIVE 09/29/2024 [id number] 4 BIANCA RIVERA 2023 90 [facility] OLODATEROL 2.5MCG/TIOT ROPIUM 2.5MCG/ACTU AT INHL,ORAL,6 0D,4GM INHALE 2 PUFFS ORAL INHALATI ON ONCE A DAY FOR ASTHMA ADMINIST ER AT SAME TIME EACH DAY RESPIR ATORY (INHAL ATION) ACTIVE 06/25/2024 [id number] 4 BIANCA RIVERA 2023 1 [facility] OMEPRAZOLE 10MG CAP,EC TAKE ONE CAPSULE BY MOUTH ONCE A DAY FOR GASTROES OPHAGEAL REFLUX DISEASE TAKE 30 MINUTES PRIOR TO FOOD. ORAL DISCONT INUED 04/27/2023 [id number] 3 ELENO SCHMID 2022 90 [facility] OMEPRAZOLE 10MG CAP,EC TAKE ONE CAPSULE BY MOUTH ONCE A DAY FOR GASTROES OPHAGEAL REFLUX DISEASE TAKE 30 MINUTES PRIOR TO FOOD. ORAL 08/07/2023 [id number] 4 ELENO SCHMID 2023 90 [facility] OMEPRAZOLE 20MG CAP,EC TAKE ONE CAPSULE BY MOUTH ONCE A DAY TAKE 30 MINUTES PRIOR TO FOOD. ORAL ACTIVE 12/23/2024 [id number] 4 CHARITO LILLY R 20[address] [facility] POTASSIUM CHLORIDE 20MEQ TAB,SA (DISPERSIBL E) TAKE ONE TABLET BY MOUTH ONCE A DAY FOR HYPOKALE MATEO TAKE WITH FOOD ORAL 05/02/2023 [id number] 3 Bowen WALL 2022 10 [facility] PREDNISONE 10MG TAB TAKE FOUR TABLETS BY MOUTH EVERY MORNING FOR 3 DAYS, THEN TAKE THREE TABLETS EVERY MORNING FOR 3 DAYS, THEN TAKE TWO TABLETS EVERY MORNING FOR 3 DAYS, THEN TAKE ONE TABLET EVERY MORNING FOR 3 DAYS, THEN TAKE ONE-HALF TABLET EVERY MORNING FOR 3 DAYS FOR ASTHMA EXACERBA TION TAKE WITH FOOD OR MILK. ORAL 07/25/2023 [id number] 4 BIANCA RIVERA 2023 32 [facility] PREDNISONE 10MG TAB TAKE THREE TABLETS BY MOUTH EVERY MORNING FOR 3 DAYS, THEN TAKE TWO TABLETS EVERY MORNING FOR 3 DAYS, THEN TAKE ONE TABLET EVERY MORNING FOR 3 DAYS, THEN TAKE ONE-HALF TABLET EVERY MORNING FOR 3 DAYS TAKE WITH FOOD OR MILK. ORAL 04/19/2023 [id number] 3 BIANCA RIVERA 2022 20 [facility] SPIRONOLACT ONE 25MG TAB TAKE ONE TABLET BY MOUTH ONCE A DAY ORAL 02/11/2024 [id number] 4 Bowen WALL S 2022 90 [facility] TIOTROPIUM 2.5MCG/ACTU AT INHL,ORAL,6 0D,4GM INHALE 2 INHALATI ONS BY ORAL INHALATI ON ONCE A DAY FOR COPD (ADMINIS TER AT SAME TIME EACH DAY) RESPIR ATORY (INHAL ATION) DISCONT INUED BY PROVIDE R 07/31/2023 [id number] 3 BIANCA RIVERA 2022 3 [facility] TOPIRAMATE 25MG TAB TAKE ONE TABLET BY MOUTH TWICE A DAY FOR MIGRAINE PROPHYLA XIS ORAL DISCONT INUED (EDIT) 01/30/2024 [id number] 3 VIJAYA,CHARITO LBY R [address] [facility] TOPIRAMATE 50MG TAB TAKE ONE TABLET BY MOUTH TWICE A DAY FOR MIGRAINE PROPHYLA XIS ORAL 02/04/2024 [id number] 3 LILLY,SHE LBY R [address] [facility] TORSEMIDE 20MG TAB TAKE TWO TABLETS BY MOUTH TWICE A DAY FOR FLUID RETENTIO N (EDEMA) ORAL ACTIVE 10/28/2024 [id number] 4 ZACK MURPHY 2023 360 [facility] TORSEMIDE 20MG TAB TAKE TWO TABLETS BY MOUTH TWICE A DAY FOR FLUID RETENTIO N (EDEMA) (TAKE IN MORNING AND AFTERNOO N) ORAL 10/09/2023 [id number] 4 KRUPA HILLMAN 2022 360 [facility] VALSARTAN 160MG TAB TAKE ONE TABLET BY MOUTH TWICE A DAY TO LOWER BLOOD PRESSURE ORAL ACTIVE 07/09/2024 [id number] 4 CHARITO LILLY R [address] [facility] Allergies, Adverse Reactions, Alerts Combined list of allergies from Department of Defense and Veterans Affairs facilities. It does not include entries that were removed or entered in error. Substance Category Reaction Severity Reaction type Status Date Reported Comments Source METFORMIN Propensity to adverse reactions to drug (finding) Diarrhea MILD active 10/19/2015 [facility] Immunizations Combined list of available immunizations from the Department of [facility] and Veterans Affairs facilities. Immunization Series Date Given Administered By Site Reaction Lot Number CVX Code Drug Recreation Officer Status Comments Source INFLUENZA, SPLIT VIRUS, TRIVALENT, PF 2023 RICARDO GODWIN RIGHT [place] ID [id number] 140 complet ed [facility] INFLUENZA, INJECTABLE, QUADRIVALENT, PRESERVATIVE FREE 2022 RICARDO GODWIN RIGHT DELTO ID [id number] A 150 complet ed [facility] COVID-19 (MODERNA), MRNA, LNP-S, BIVALENT BOOSTER, PF, 50 MCG/0.5 ML OR 25MCG/0.25 ML DOSE 1 2022 YISEL RYAN LEFT DELTO ID [id number] 229 complet ed [facility] INFLUENZA, UNSPECIFIED FORMULATION 2021 88 complet ed [facility] COVID-19 (MODERNA), MRNA, LNP-S, PF, 100 MCG/0.5ML DOSE OR 50 MCG/0.25ML DOSE 4 2021 NONE 207 complet ed MOD; [id number]; [address] [facility] PNEUMOCOCCAL POLYSACCHARID E PPV23 2021 NONE 33 complet ed [facility] ZOSTER RECOMBINANT 2 2021 NONE 187 complet ed [facility] COVID-19 (MODERNA), MRNA, LNP-S, PF, 100 MCG OR 50 MCG DOSE 3 2021 NONE 207 complet ed MOD; [id number]; [address] [facility] PNEUMOCOCCAL CONJUGATE PCV 13 2020 NONE 133 complet ed [facility] ZOSTER RECOMBINANT 1 2020 NONE 187 complet ed [facility] COVID-19 (MODERNA), MRNA, LNP-S, PF, 100 MCG/0.5 ML DOSE 2 2020 207 complet ed MOD; [id number]; [address] [facility] COVID-19 (MODERNA), MRNA, LNP-S, PF, 100 MCG/0.5 ML DOSE 1 2020 207 complet ed MOD; [id number]; [address] [facility] INFLUENZA, INJECTABLE, QUADRIVALENT, PRESERVATIVE FREE 2019 150 complet ed [facility] INFLUENZA, INJECTABLE, QUADRIVALENT, PRESERVATIVE FREE 2018 150 complet ed [facility] INFLUENZA, UNSPECIFIED FORMULATION 2017 88 complet ed Per pt had flu vaccinati on at [facility] on 03/2018, no paperwork at this visit to verify [facility] TDAP 2017 115 complet ed Right Deltoid [facility] Results Combined list of recent chemistry, hematology and other laboratory results from Department of Defense and Veterans Affairs, ranging from 15 months to all on record, depending upon the facility. Order Name Results Value Reference Range Date Interpretation Specimen Comments Source TSH (MA-PB) THYROTROPIN [UNITS/VOLU ME] IN SERUM OR PLASMA 1.531 u[IU]/ mL 0.47 - 5 12/22 Specimen Type: SERUM Comment: The listed sex of this patient may not be a typical indication for this test. Therefore, reference ranges or interpretiv e criteria listed may not be valid. Clinical correlation suggested. Ordering Provider: SRINIVAS LILLY Report Released Date/Time: Dec 23, 2023 12:37 PM Reporting Lab: [facility] [address] [place] [phone] Performing Lab: [facility] [address] [place] [phone] [facility] LIPID PANEL (STL) CHOLESTEROL [MASS/VOLUM E] IN SERUM OR PLASMA 106 mg/dL 0 - 200 12/22 Specimen Type: PLASMA No comment entered. Ordering Provider: SRINIVAS LILLY Report Released Date/Time: Dec 23, 2023 12:37 PM Reporting Lab: [address] [phone] Performing Lab: [address] [phone] [facility] LIPID PANEL (STL) TRIGLYCERID E [MASS/VOLUM E] IN SERUM OR PLASMA 197 mg/dL 0 - 150 12/22 H Specimen Type: PLASMA No comment entered. Ordering Provider: SRINIVAS LILLY Report Released Date/Time: Dec 23, 2023 12:37 PM Reporting Lab: [address] [address] Performing Lab: [address] [phone] [facility] LIPID PANEL (STL) CHOLESTEROL IN LDL [MASS/VOLUM E] IN SERUM OR PLASMA BY CALCULATION 41 mg/dL 12/22 Specimen Type: PLASMA No comment entered. Ordering Provider: SRINIVAS LILLY Report Released Date/Time: Dec 23, 2023 12:37 PM Reporting Lab: [address] [phone] Performing Lab: [address] [phone] [facility] LIPID PANEL (STL) CHOLESTEROL IN HDL [MASS/VOLUM E] IN SERUM OR PLASMA 26 mg/dL 40 12/22 L Specimen Type: PLASMA No comment entered. Ordering Provider: SRINIVAS LILLY Report Released Date/Time: Dec 23, 2023 12:37 PM Reporting Lab: [address] [phone] Performing Lab: [address] [phone] . [facility] PROST. SPECIFIC AG.(PB-ST L) PROSTATE SPECIFIC AG [MASS/VOLUM E] IN SERUM OR PLASMA 1.504 ng/mL 0 - 4 12/22 Specimen Type: SERUM Comment: The listed sex of this patient may not be a typical indication for this test. Therefore, reference ranges or interpretiv e criteria listed may not be valid. Clinical correlation suggested. Ordering Provider: SRINIVAS LILLY Report Released Date/Time: Dec 23, 2023 12:37 PM Reporting Lab: [facility] [address] [place] [address] Performing Lab: [address] HGA1C HEMOGLOBIN A1C/HEMOGLO BIN.TOTAL IN BLOOD 7.9 4.0 - 6.0 12/22 H Specimen Type: BLOOD No comment entered. Ordering Provider: SRINIVAS LILLY Report Released Date/Time: Dec 23, 2023 12:37 PM Reporting Lab: [facility] [address] [place] [phone] Performing Lab: [facility] [address] [place] [address] URIC ACID URATE [MASS/VOLUM E] IN SERUM OR PLASMA 7.7 mg/dL 3.5 - 7.2 12/22 H Specimen Type: PLASMA No comment entered. Ordering Provider: SRINIVAS LILLY Report Released Date/Time: Dec 23, 2023 12:37 PM Reporting Lab: [facility] [address] [place] [phone] Performing Lab: [facility] [address] [place] [address] URINALYSI S (STL-PB) COLOR OF URINE Light- Yellow 12/22 Specimen Type: URINE Comment: High concentrati ons of glucose and protein affect specific gravity. Therefore, specific gravity is corrected using the concentrati ons of glucose and protein obtained from test strip measurement . Very high concentrati ons of glucose (>1000 mg/dL) or protein (>600 mg/dL) in the urine may affect the reliability of the specific gravity results. Clinical correlation is suggested. Ordering Provider: SRINIVAS LILLY Report Released Date/Time: Dec 23, 2023 12:37 PM Reporting Lab: [facility] [address] [place] [address] Performing Lab: [address] URINALYSI S (STL-PB) BILIRUBIN.T OTAL [PRESENCE] IN URINE BY TEST STRIP Negati vemg/d L 12/22 Specimen Type: URINE Comment: High concentrati ons of glucose and protein affect specific gravity. Therefore, specific gravity is corrected using the concentrati ons of glucose and protein obtained from test strip measurement . Very high concentrati ons of glucose (>1000 mg/dL) or protein (>600 mg/dL) in the urine may affect the reliability of the specific gravity results. Clinical correlation is suggested. Ordering Provider: SRINIVAS LILLY Report Released Date/Time: Dec 23, 2023 12:37 PM Reporting Lab: [place] [address] Performing Lab: [address] URINALYSI S (STL-PB) PH OF URINE BY TEST STRIP 6.5 5.0 - 8.0 12/22 Specimen Type: URINE Comment: High concentrati ons of glucose and protein affect specific gravity. Therefore, specific gravity is corrected using the concentrati ons of glucose and protein obtained from test strip measurement . Very high concentrati ons of glucose (>1000 mg/dL) or protein (>600 mg/dL) in the urine may affect the reliability of the specific gravity results. Clinical correlation is suggested. Ordering Provider: SRINIVAS LILLY Report Released Date/Time: Dec 23, 2023 12:37 PM Reporting Lab: [place] [address] Performing Lab: [address] [place] [phone] [place] [address] URINALYSI S (STL-PB) LEUKOCYTES [#/AREA] IN URINE SEDIMENT BY MICROSCOPY HIGH POWER FIELD 2 /[HPF] 0 - 5 12/22 Specimen Type: URINE Comment: High concentrati ons of glucose and protein affect specific gravity. Therefore, specific gravity is corrected using the concentrati ons of glucose and protein obtained from test strip measurement . Very high concentrati ons of glucose (>1000 mg/dL) or protein (>600 mg/dL) in the urine may affect the reliability of the specific gravity results. Clinical correlation is suggested. Ordering Provider: SRINIVAS LILLY Report Released Date/Time: Dec 23, 2023 12:37 PM Reporting Lab: [address] [phone] Performing Lab: [address] URINALYSI S (STL-PB) ERYTHROCYTE S [#/VOLUME] IN URINE SEDIMENT BY MICROSCOPY HIGH POWER FIELD 1 /[HPF] 0 - 5 12/22 Specimen Type: URINE Comment: High concentrati ons of glucose and protein affect specific gravity. Therefore, specific gravity is corrected using the concentrati ons of glucose and protein obtained from test strip measurement . Very high concentrati ons of glucose (>1000 mg/dL) or protein (>600 mg/dL) in the urine may affect the reliability of the specific gravity results. Clinical correlation is suggested. Ordering Provider: SRINIVAS LILLY Report Released Date/Time: Dec 23, 2023 12:37 PM Reporting Lab: [address] [phone] Performing Lab: [address] URINALYSI S (STL-PB) APPEARANCE OF URINE Clear 12/22 Specimen Type: URINE Comment: High concentrati ons of glucose and protein affect specific gravity. Therefore, specific gravity is corrected using the concentrati ons of glucose and protein obtained from test strip measurement . Very high concentrati ons of glucose (>1000 mg/dL) or protein (>600 mg/dL) in the urine may affect the reliability of the specific gravity results. Clinical correlation is suggested. Ordering Provider: SRINIVAS LILLY Report Released Date/Time: Dec 23, 2023 12:37 PM Reporting Lab: [facility] [address] [facility] [phone] Performing Lab: [facility] [address] [place] [phone] [facility] URINALYSI S (STL-PB) NITRITE [PRESENCE] IN URINE BY TEST STRIP Negati vemg/d L 12/22 Specimen Type: URINE Comment: High concentrati ons of glucose and protein affect specific gravity. Therefore, specific gravity is corrected using the concentrati ons of glucose and protein obtained from test strip measurement . Very high concentrati ons of glucose (>1000 mg/dL) or protein (>600 mg/dL) in the urine may affect the reliability of the specific gravity results. Clinical correlation is suggested. Ordering Provider: SRINIVAS LILLY Report Released Date/Time: Dec 23, 2023 12:37 PM Reporting Lab: [address] [phone] Performing Lab: [address] [phone] [place] [address] URINALYSI S (STL-PB) BACTERIA [PRESENCE] IN URINE SEDIMENT BY LIGHT MICROSCOPY RARE/[ HPF] 12/22 Specimen Type: URINE Comment: High concentrati ons of glucose and protein affect specific gravity. Therefore, specific gravity is corrected using the concentrati ons of glucose and protein obtained from test strip measurement . Very high concentrati ons of glucose (>1000 mg/dL) or protein (>600 mg/dL) in the urine may affect the reliability of the specific gravity results. Clinical correlation is suggested. Ordering Provider: SRINIVAS LILLY Report Released Date/Time: Dec 23, 2023 12:37 PM Reporting Lab: [facility] [address] [place] [phone] Performing Lab: [place] [address] [place] [phone] [place] [address] URINALYSI S (STL-PB) EPITHELIAL CELLS [#/AREA] IN URINE SEDIMENT BY MICROSCOPY LOW POWER FIELD 1 /[HPF] 0 - 5 12/22 Specimen Type: URINE Comment: High concentrati ons of glucose and protein affect specific gravity. Therefore, specific gravity is corrected using the concentrati ons of glucose and protein obtained from test strip measurement . Very high concentrati ons of glucose (>1000 mg/dL) or protein (>600 mg/dL) in the urine may affect the reliability of the specific gravity results. Clinical correlation is suggested. Ordering Provider: SRINIVAS LILLY Report Released Date/Time: Dec 23, 2023 12:37 PM Reporting Lab: [place] [address] Performing Lab: [address] URINALYSI S (L-PB) GLUCOSE [MASS/VOLUM E] IN URINE BY TEST STRIP >mg/dL 12/22 H Specimen Type: URINE Comment: High concentrati ons of glucose and protein affect specific gravity. Therefore, specific gravity is corrected using the concentrati ons of glucose and protein obtained from test strip measurement . Very high concentrati ons of glucose (>1000 mg/dL) or protein (>600 mg/dL) in the urine may affect the reliability of the specific gravity results. Clinical correlation is suggested. Ordering Provider: SRINIVAS LILLY Report Released Date/Time: Dec 23, 2023 12:37 PM Reporting Lab: [facility] [address] [place] [phone] Performing Lab: [address] [phone] [place] [address] URINALYSI S (L-PB) PROTEIN [MASS/VOLUM E] IN URINE BY TEST STRIP 100 mg/dL - 20 12/22 H Specimen Type: URINE Comment: High concentrati ons of glucose and protein affect specific gravity. Therefore, specific gravity is corrected using the concentrati ons of glucose and protein obtained from test strip measurement . Very high concentrati ons of glucose (>1000 mg/dL) or protein (>600 mg/dL) in the urine may affect the reliability of the specific gravity results. Clinical correlation is suggested. Ordering Provider: SRINIVAS LILLY Report Released Date/Time: Dec 23, 2023 12:37 PM Reporting Lab: [place] [address] Performing Lab: [address] URINALYSI S (L-PB) URN.UROBILI NOGEN Normal mg/dL 12/22 Specimen Type: URINE Comment: High concentrati ons of glucose and protein affect specific gravity. Therefore, specific gravity is corrected using the concentrati ons of glucose and protein obtained from test strip measurement . Very high concentrati ons of glucose (>1000 mg/dL) or protein (>600 mg/dL) in the urine may affect the reliability of the specific gravity results. Clinical correlation is suggested. Ordering Provider: SRINIVAS LILLY Report Released Date/Time: Dec 23, 2023 12:37 PM Reporting Lab: [place] [address] Performing Lab: [address] URINALYSI S (L-PB) HEMOGLOBIN [MASS/VOLUM E] IN URINE BY TEST STRIP Negati vemg/d L 12/22 Specimen Type: URINE Comment: High concentrati ons of glucose and protein affect specific gravity. Therefore, specific gravity is corrected using the concentrati ons of glucose and protein obtained from test strip measurement . Very high concentrati ons of glucose (>1000 mg/dL) or protein (>600 mg/dL) in the urine may affect the reliability of the specific gravity results. Clinical correlation is suggested. Ordering Provider: SRINIVAS LILLY Report Released Date/Time: Dec 23, 2023 12:37 PM Reporting Lab: [place] [address] Performing Lab: [facility] [address] URINALYSI S (STL-PB) KETONES [MASS/VOLUM E] IN URINE BY TEST STRIP Negati vemg/d L 12/22 Specimen Type: URINE Comment: High concentrati ons of glucose and protein affect specific gravity. Therefore, specific gravity is corrected using the concentrati ons of glucose and protein obtained from test strip measurement . Very high concentrati ons of glucose (>1000 mg/dL) or protein (>600 mg/dL) in the urine may affect the reliability of the specific gravity results. Clinical correlation is suggested. Ordering Provider: SRINIVAS LILLY Report Released Date/Time: Dec 23, 2023 12:37 PM Reporting Lab: [place] [address] Performing Lab: [address] URINALYSI S (L-PB) URN.LEUK.ES T. Negati vemg/d L 12/22 Specimen Type: URINE Comment: High concentrati ons of glucose and protein affect specific gravity. Therefore, specific gravity is corrected using the concentrati ons of glucose and protein obtained from test strip measurement . Very high concentrati ons of glucose (>1000 mg/dL) or protein (>600 mg/dL) in the urine may affect the reliability of the specific gravity results. Clinical correlation is suggested. Ordering Provider: SRINIVAS LILLY Report Released Date/Time: Dec 23, 2023 12:37 PM Reporting Lab: [place] [address] Performing Lab: [address] URINALYSI S (L-PB) SPECIFIC GRAVITY OF URINE 1.026 1.005 - 1.029 12/22 Specimen Type: URINE Comment: High concentrati ons of glucose and protein affect specific gravity. Therefore, specific gravity is corrected using the concentrati ons of glucose and protein obtained from test strip measurement . Very high concentrati ons of glucose (>1000 mg/dL) or protein (>600 mg/dL) in the urine may affect the reliability of the specific gravity results. Clinical correlation is suggested. Ordering Provider: SRINIVAS LILLY Report Released Date/Time: Dec 23, 2023 12:37 PM Reporting Lab: [place] [address] [facility] [phone] Performing Lab: [address] [phone] [place] [address] MICRAL/CR EAT PROFILE (STL) ALBUMIN [MASS/VOLUM E] IN URINE 341.2 mg/L 10/27 Specimen Type: URINE No comment entered. Ordering Provider: LOYDA MURPHY Report Released Date/Time: Oct 28, 2023 09:22 AM Reporting Lab: [place] [address] [facility] [address] Performing Lab: [address] [address] [facility] MICRAL/CR EAT PROFILE (STL) ALBUMIN/CRE ATININE [MASS RATIO] IN URINE 664 mg/g 0 - 29 10/27 H Specimen Type: URINE No comment entered. Ordering Provider: LOYDA MURPHY Report Released Date/Time: Oct 28, 2023 09:22 AM Reporting Lab: [address] [address] Performing Lab: [address] [phone] [facility] MICRAL/CR EAT PROFILE (STL) CREATININE [MASS/VOLUM E] IN URINE 51.4 mg/dL 63 - 166 10/27 L Specimen Type: URINE No comment entered. Ordering Provider: LOYDA MURPHY Report Released Date/Time: Oct 28, 2023 09:22 AM Reporting Lab: [address] [phone] Performing Lab: [address] [address] [facility] PTH, INTACT (STL) PARATHYRIN. INTACT [MASS/VOLUM E] IN SERUM OR PLASMA 57.70 pg/mL 8.7 - 77.7 10/27 Specimen Type: SERUM No comment entered. Ordering Provider: LOYDA MURPHY Report Released Date/Time: Oct 28, 2023 09:22 AM Reporting Lab: [place] [address] Performing Lab: [address] VITAMIN D, 25-HYDROX Y 25-HYDROXYV ITAMIN D3 [MASS/VOLUM E] IN SERUM OR PLASMA 15.6 ng/mL 30 - 96 10/27 L Specimen Type: SERUM No comment entered. Ordering Provider: LOYDA MURPHY Report Released Date/Time: Oct 28, 2023 09:22 AM Reporting Lab: [place] [phone] Performing Lab: [place] [address] [place] [phone] RENAL PANEL CREATININE [MASS/VOLUM E] IN SERUM OR PLASMA 1.69 mg/dL 0.7 - 1.3 10/27 H Specimen Type: PLASMA Comment: No hemolysis noted. Ordering Provider: LOYDA MURPHY Report Released Date/Time: Oct 28, 2023 09:22 AM Reporting Lab: [place] [phone] Performing Lab: [address] [phone] RENAL PANEL UREA NITROGEN [MASS/VOLUM E] IN SERUM OR PLASMA 18.6 mg/dL 9.0 - 25.0 10/27 Specimen Type: PLASMA Comment: No hemolysis noted. Ordering Provider: LOYDA MURPHY Report Released Date/Time: Oct 28, 2023 09:22 AM Reporting Lab: [place] [address] [place] [phone] Performing Lab: [facility] [address] [facility] [address] [facility] RENAL PANEL GLUCOSE [MASS/VOLUM E] IN SERUM OR PLASMA 160 mg/dL 72 - 99 10/27 H Specimen Type: PLASMA Comment: No hemolysis noted. Ordering Provider: LOYDA MURPHY Report Released Date/Time: Oct 28, 2023 09:22 AM Reporting Lab: [facility] [address] [place] [phone] Performing Lab: [address] [phone] [facility] RENAL PANEL SODIUM [MOLES/VOLU ME] IN SERUM OR PLASMA 141 meq/L 136 - 145 10/27 Specimen Type: PLASMA Comment: No hemolysis noted. Ordering Provider: LOYDA MURPHY Report Released Date/Time: Oct 28, 2023 09:22 AM Reporting Lab: [facility] [address] [facility] [address] Performing Lab: [facility] [address] [place] [phone] [facility] RENAL PANEL POTASSIUM [MOLES/VOLU ME] IN SERUM OR PLASMA 4.0 meq/L 3.5 - 5 10/27 Specimen Type: PLASMA Comment: No hemolysis noted. Ordering Provider: LOYDA MURPHY Report Released Date/Time: Oct 28, 2023 09:22 AM Reporting Lab: [facility] [address] [facility] [address] Performing Lab: [facility] [address] [place] [phone] [facility] RENAL PANEL CHLORIDE [MOLES/VOLU ME] IN SERUM OR PLASMA 106 meq/L 98 - 107 10/27 Specimen Type: PLASMA Comment: No hemolysis noted. Ordering Provider: LOYDA MURPHY Report Released Date/Time: Oct 28, 2023 09:22 AM Reporting Lab: [facility] [address] [facility] [phone] Performing Lab: [facility] [address] [place] [phone] [facility] RENAL PANEL CARBON DIOXIDE, TOTAL [MOLES/VOLU ME] IN SERUM OR PLASMA 25 meq/L 22 - 31 10/27 Specimen Type: PLASMA Comment: No hemolysis noted. Ordering Provider: LOYDA MURPHY Report Released Date/Time: Oct 28, 2023 09:22 AM Reporting Lab: [place] [address] [facility] [phone] Performing Lab: [address] [phone] [facility] RENAL PANEL CALCIUM [MASS/VOLUM E] IN SERUM OR PLASMA 10.0 mg/dL 8.4 - 10.4 10/27 Specimen Type: PLASMA Comment: No hemolysis noted. Ordering Provider: LOYDA MURPHY Report Released Date/Time: Oct 28, 2023 09:22 AM Reporting Lab: [place] [address] [facility] [phone] Performing Lab: [place] [address] [facility] [address] [facility] RENAL PANEL PHOSPHATE [MASS/VOLUM E] IN SERUM OR PLASMA 4.6 mg/dL 2.3 - 4.7 10/27 Specimen Type: PLASMA Comment: No hemolysis noted. Ordering Provider: LOYDA MURPHY Report Released Date/Time: Oct 28, 2023 09:22 AM Reporting Lab: [place] [address] [facility] [phone] Performing Lab: [address] [phone] [facility] RENAL PANEL ALBUMIN [MASS/VOLUM E] IN SERUM OR PLASMA 4.1 g/dL 3.4 - 5 10/27 Specimen Type: PLASMA Comment: No hemolysis noted. Ordering Provider: LOYDA MURPHY Report Released Date/Time: Oct 28, 2023 09:22 AM Reporting Lab: [facility] [address] [facility] [address] Performing Lab: [facility] [address] [facility] [phone] [facility] RENAL PANEL GLOMERULAR FILTRATION RATE/1.73 SQ M.PREDICTED [VOLUME RATE/AREA] IN SERUM, PLASMA OR BLOOD BY CREATININE- BASED FORMULA (CKD-EPI 2020) 45.6 60 10/27 Specimen Type: PLASMA Comment: No hemolysis noted. Ordering Provider: LOYDA MURPHY Report Released Date/Time: Oct 28, 2023 09:22 AM Reporting Lab: [place] [address] [facility] [address] Performing Lab: [address] [address] [facility] Vital Signs Combined list of inpatient and outpatient Vital Signs from Department of Defense and Veterans Affairs, ranging from 12 months to all on record, depending upon the facility. Vital Sign Value Date Comments Source SYSTOLIC BLOOD PRESSURE 196 12/23/2023 12:07:[address] [facility] DIASTOLIC BLOOD PRESSURE 92 12/23/2023 12:07:[address] [facility] PULSE OXIMETRY 96 12/23/2023 12:07:24 [facility] WEIGHT 274.8 12/23/2023 12:07:24 [facility] BMI 42kg/m2 12/23/2023 12:07:24 [facility] PAIN 0 12/23/2023 12:07:24 [facility] TEMPERATURE 98.7 12/23/2023 12:07:[address] [facility] PULSE 76 12/23/2023 12:07:24 . [facility] RESPIRATION 20 12/23/2023 12:07:[address] [facility] SYSTOLIC BLOOD PRESSURE 159 10/28/2023 09:12:01 [facility] DIASTOLIC BLOOD PRESSURE 74 10/28/2023 09:12:01 [facility] PULSE OXIMETRY 95 10/28/2023 09:12:01 [facility] WEIGHT 277.9 10/28/2023 09:12:01 [facility] BMI 42kg/m2 10/28/2023 09:12:01 [facility] PAIN 0 10/28/2023 09:12:01 [facility] HEIGHT 68 10/28/2023 09:12:01 [facility] TEMPERATURE 98.4 10/28/2023 09:12:01 [facility] PULSE 69 10/28/2023 09:12:01 [facility] RESPIRATION 20 10/28/2023 09:12:01 [facility] SYSTOLIC BLOOD PRESSURE 181 09/29/2023 13:14:54 [facility] DIASTOLIC BLOOD PRESSURE 77 09/29/2023 13:14:54 [facility] PULSE OXIMETRY 96 09/29/2023 13:14:54 [facility] WEIGHT 280.3 09/29/2023 13:14:54 [facility] BMI 43kg/m2 09/29/2023 13:14:54 [facility] TEMPERATURE 97.6 09/29/2023 13:14:54 [facility] PULSE 83 09/29/2023 13:14:54 [facility] RESPIRATION 16 09/29/2023 13:14:54 [facility] SYSTOLIC BLOOD PRESSURE 152 07/30/2023 10:26:23 [facility] DIASTOLIC BLOOD PRESSURE 84 07/30/2023 10:26:23 [facility] PULSE OXIMETRY 94 07/30/2023 10:26:23 [facility] WEIGHT 282.2 07/30/2023 10:26:23 [facility] BMI 43kg/m2 07/30/2023 10:26:23 [facility] TEMPERATURE 98.3 07/30/2023 10:26:23 [facility] PULSE 76 07/30/2023 10:26:23 [facility] RESPIRATION 18 07/30/2023 10:26:23 [facility] SYSTOLIC BLOOD PRESSURE 162 07/08/2023 13:49:52 [facility] DIASTOLIC BLOOD PRESSURE 71 07/08/2023 13:49:52 [facility] PULSE OXIMETRY 93 07/08/2023 13:49:52 [facility] WEIGHT 278 07/08/2023 13:49:52 [facility] BMI 42kg/m2 07/08/2023 13:49:52 [facility] PAIN 0 07/08/2023 13:49:52 [facility] TEMPERATURE 98.8 07/08/2023 13:49:52 [facility] PULSE 67 07/08/2023 13:49:52 [facility] RESPIRATION 20 07/08/2023 13:49:52 [facility] Encounters Combined list of: 1) Encounters from Department of Veterans Affairs facilities going back up to thelast 18 months. 2) Encounters from the Department of Defense facilities going back up to 280 months. Location Location Details Encounter Type Encounter Number Reason For Visit Attending Provider ADM Date DC Date Status Disposition Source [facility] Outpatient Encounter [id number] Radha DEGROOT 10/23 [facility] Outpatient Encounter [id number] 11/06 [facility] Outpatient Encounter [id number] 12/[address] [facility] Out[facility] Encounter [id number] 01/01 [facility] HC PRO PHONE CALL 5-10 MIN [id number] TATO,CARLOS KATI C 01/06 [facility] Outpatient Encounter [id number] 01/[address] [facility] [place] [id number] Diagnos is: ICD-10- CM Z00.00 Encntr for general adult medical exam w/o abnorma l finding s
COLLIN LILLY 01/07 [facility] OFFICE O/P EST MOD 30-39 MIN [id number] Diagnos is: ICD-10- CM N18.32 Chronic kidney disease , stage 3b
EDEN MURPHY 01/21 [facility] Outpatient Encounter [id number] 01/22 [facility] Outpatient Encounter [id number] 01/[address] [facility] MTMS BY PHARM ADDL 15 MIN [id number] Diagnos is: ICD-10- CM E11.9 Type 2 diabete s mellitu s without complic ations< br/> MYKE CAMPOS 01/29 [facility] Outpatient Encounter [id number] 01/29 [facility] Outpatient Encounter [id number] 02/05 [facility] Outpatient Encounter [id number] KATE HUBBARD A 02/06 [facility] N [facility] Outpatient Encounter [id number] URIEL BEDOLLA Terry 02/06 [facility] HC PRO PHONE CALL 5-10 MIN [id number] Diagnos is: ICD-10- CM N18.9 Chronic kidney disease , unspeci fied
ALEX HANSON S 02/07 [facility] Outpatient Encounter [id number] Diagnos is: ICD-10- CM I10 Essenti al (primar y) hyperte nsion<b r/> KREMMEL,NA THAN S 02/10 [facility] Outpatient Encounter [id number] ROBERT JONES A 02/14 [facility] Outpatient Encounter [id number] Diagnos is: ICD-10- CM R05.1 Acute cough<b r/> BIANCA RIVERA 03/20 [facility] OFFICE O/P EST HI 40-54 MIN [id number] Diagnos is: ICD-10- CM I50.9 Heart failure , unspeci fied
KREMMEL,NA THAN S 04/01 [facility] OFFICE O/P EST MOD 30-39 MIN [id number] Diagnos is: ICD-10- CM J45.998 Other asthma< br/> BIANCA RIVERA 04/01 [facility] Outpatient Encounter [id number] KYLAH R[place] C 04/01 [facility] Outpatient Encounter [id number] 04/21 [facility] HL BHV ASSMT/REAS SESSMENT [id number] Diagnos is: ICD-10- CM Z63.6 Depende nt relativ e needing care at home
LUPILLO JAMES S 04/24 [facility] Outpatient Encounter [id number] Diagnos is: ICD-10- CM E78.5 Hyperli pidemia , unspeci fied
LINDSAY WALL S 05/15 [facility] Outpatient Encounter [id number] 05/15 [facility] Outpatient Encounter [id number] CHAPINCITO GALARZA 05/28 [facility] Outpatient Encounter [id number] 06/06 [facility] OFFICE O/P EST MOD 30 MIN [id number] Diagnos is: ICD-10- CM J45.41 Moderat e persist ent asthma with (acute) exacerb ation<b r/> HERMAN RIVERAINA 06/24 [facility] Outpatient Encounter [id number] 06/24 [facility] Outpatient Encounter [id number] TATOJEANNEShaw GRAHAMSKYLAR C 06/[address] [facility] OFFICE O/P EST MOD 30 MIN [id number] Diagnos is: ICD-10- CM I50.9 Heart failure , unspeci fied
COLLIN LILLY 07/07 [facility] Outpatient Encounter [id number] 07/08 [facility] Outpatient Encounter [id number] 07/09 [facility] Outpatient Encounter [id number] MYKE CAMPOS 07/09 [facility] OFFICE O/P EST MOD 30 MIN [id number] Diagnos is: ICD-10- CM J45.998 Other asthma< br/> BIANCA RIVERA 07/29 [facility] Outpatient Encounter [id number] Diagnos is: ICD-10- CM J45.909 Unspeci fied asthma, uncompl icated< br/> BO MARQUEZ 08/07 [facility] OFFICE O/P EST MOD 30 MIN [id number] Diagnos is: ICD-10- CM J45.998 Other asthma< br/> DEYSIHERMAN MARTINEZINA 09/28 [facility] Outpatient Encounter [id number] 10/21 [facility] OFFICE O/P EST MOD 30 MIN [id number] Diagnos is: ICD-10- CM N18.31 Chronic kidney disease , stage 3a
EDEN MURPHY 10/27 [facility] Outpatient Encounter [id number] 11/[address] [facility] OFFICE O/P EST MOD 30 MIN [id number] Diagnos is: ICD-10- CM I50.9 Heart failure , unspeci fied
COLLIN LILLY 12/22 [facility] Outpatient Encounter [id number] 12/23 [facility] Outpatient Encounter [id number] 12/24 [facility] Outpatient Encounter [id number] 12/24 [facility] HC PRO PHONE CALL 5-10 MIN [id number] Diagnos is: ICD-10- CM J44.9 Chronic obstruc tive pulmona ry disease , unspeci fied
Terry BUI 12/29 [facility] Outpatient Encounter [id number] 01/29 [facility] Outpatient Encounter [id number] Diagnos is: ICD-10- CM Z12.2 Encntr screen for maligna nt neoplas m of respira tory organs< br/> OHLMS,PAVITHRA Y 02/01 [facility] OFF/OP EST MAY X REQ PHY/QHP [id number] Diagnos is: ICD-10- CM Z76.0 Encount er for issue of repeat prescri ption<b r/> BIANCA RIVERA 03/09 [facility] Outpatient Encounter [id number] 03/12 [facility] Outpatient Encounter [id number] ROBERT JONES A 04/08 [facility] Social History Combined list of available smoking, tobacco, and other social history from Department of Defense and Veterans Affairs facilities. Social History Type Response Date Comment Sour e Tobacco smoking status COIS VA-TOBACCO FORMER USER 12/23/2023 Philip [facility] History of tobacco use VA-TOBACCO QUIT 15 YRS OR MORE 12/23/2023 [facility] History of tobacco use VA-TOBACCO NEVER USED 01/06/2023 [facility] History of tobacco use MO-TOBACCO QUIT 1 TO < 5 YRS 07/13/2021 Philip [facility] History of tobacco use VA-TOBACCO FORMER USER 06/30/2020 J[facility]ICE [facility] History of tobacco use VA-TOBACCO FORMER USER 05/24/2020 Philip [facility] History of tobacco use ORYX ADMIT TOBACCO SCREEN NO 07/06/2019 [facility] History of tobacco use TOBACCO OFFERED PT MEDS (PROVIDER) 05/07/[address] [facility] History of tobacco use VA-TOBACCO QUIT < 1 YEAR 04/13/2019 [facility] History of tobacco use ORYX ADMIT TOBACCO SCREEN NO 02/16/2019 [facility] History of tobacco use TOBACCO USER OFFERED MEDS 11/13/2017 [facility] History of tobacco use CURRENT TOBACCO USER 01/14/2017 [facility] History of tobacco use CURRENT TOBACCO USER 09/12/2016 [facility] History of tobacco use CURRENT TOBACCO USER 11/20/2015 [facility] History of tobacco use CURRENT TOBACCO USER 12/26/2014 [facility] Plan of Care List of future care activities from [facility] facilities. Additional future care activities may be listed in the Assessment and Plan section. Date/Time Care Activity Care Activity Detail Facili ty 04/23/2024 AMBULATORY - MEDICINE AMBULATORY - MEDICI [facility] 06/23/2024 AMBULATORY - MEDICINE AM[facility]ULATORY - MEDICI [facility] 07/19/2024 AMBULATORY - MEDICINE AMBULATORY - MEDICI [facility] Advance Directives List of completed, amended, or rescinded Advance Directives on record at [facility] Affairs facilities. An actual copy of the Directive is not included. Date Advance Directive Provider Source 07/06/2019 ADVANCE DIRECTIVE DISCUSSION JJ REZA [facility]
--- OUTSIDE RECORDS SUMMARY | 2024-04-20 04:55 | XMS_ITS ---
Author Name [facility] [place] Address [address] [place] [address] Care Team Providers Care Document Control Associate Name Role Phone SHAMA LILLY Primary Care [...] Nichols's Name Patient's Relationship to Policy Nichols [facility] Oct 29, 2012 Dec 27, 2026 [facility] [id number] [phone] ALEC MORATAYA PATIENT [facility] Oct 29, 2012 Dec 27, 2026 [facility] [id number] ALEC MORATAYA PATIENT Selected Encounter This section includes the information on record at [place] for the Encounter. Date/Time Encounter Type Encounter Description Reason Pro vider Source Apr 21, 2023 05:04 PM Outpatient Encounter TELEPHONE/ANCILLARY IHE Encounter Template Text not used by MA Plan of Treatment: Future Appointments (+ 6 months) and Future Tests (+/- 45 days) The Plan of Treatment section includes future care activities for the patient from all VA treatmentfacilities. This section includes future appointments and future orders which are active, pending or scheduled. Future Appointments This section includes appointments that were scheduled to occur 6 months from the date of the Encounter, up to a maximum of 20 appointments. The data comes from all [place] treatment facilities. Appointment Date/Time Appointment Type Appointme nt Facility Name Apr 24, 2023 10:00 AM AMBULATORY - MEDICINE [facility] May 15, 2023 10:30 AM AMBULATORY - MEDICINE [facility] Jun 25, 2023 09:30 AM AMBULATORY - MEDICINE [facility] Jul 08, 2023 01:30 PM AMBULATORY - MEDICINE [facility] Jul 30, 2023 10:30 AM AMBULATORY - MEDICINE [facility] Sep 29, 2023 02:00 PM AMBULATORY - MEDICINE [facility] Lab Results: +/- 30 days of the encounter This section includes the Chemistry and Hematology Lab Results on record with VA for the patient. Radiology Reports and Pathology Reports are provided separately, in subsequent sections. Lab Results This section contains the Chemistry/Hematology Results that were resulted 30 days before or 30 daysafter the date of the Encounter. Date/Time Source Result Type Result - Unit Interpretation Reference Range Comment Apr 01, 2023 11:52 AM [facility] BRAIN NATRIURETIC PEPTIDE Specimen Type: PLASMA No comment entered. Ordering Provider: DREW WALL Report Released Date/Time: Apr 01, 2023 10:56 AM Reporting Lab: [facility] [address] [id number] Performing Lab: [facility] [address] [id number] BRAIN NATRIURETIC PEPTIDE 340.4 pg/mL H 0-100 Apr 01, 2023 11:52 AM [facility] BASIC METABOLIC PANEL Specimen Type: PLASMA Comment: No hemolysis noted. Ordering Provider: DREW WALL Report Released Date/Time: Apr 01, 2023 10:56 AM Reporting Lab: [facility] [address] [id number] Performing Lab: [facility] [address] [phone] CREATININE 1.37 mg/dL H 0.7-1.3 UREA NITROGEN [...] and tobacco- related health factors from the [place] facility where the Encounter took place. Current Smoking Status This section includes the most current smoking, or tobacco-related health factor, from the [place] facility where the Encounter took place. Date/Time Current Smoking Status Comment Arnulfo ity Jan 06, 2023 02:41 PM VA-TOBACCO NEVER USED [facility] Tobacco Use History This section includes a history of the smoking, or tobacco-related health factors, that were collected on or before the date of the Encounter. The data comes from the [place] facility where the Encounter took place. Date/Time Smoking Status/Tobacco Use Comment F acility Jul 06, 2019 01:16 AM ORYX ADMIT TOBACCO SCREEN NO [facility] Feb 16, 2019 10:39 PM ORYX ADMIT TOBACCO SCREEN NO [facility] Nov 20, 2015 11:29 AM CURRENT TOBACCO USER [facility] Nov 20, 2015 11:29 AM TOBACCO MEDS OFFER ED BUT DECLINED [facility] Dec 26, 2014 09:53 AM CURRENT TOBACCO USER [facility] Dec 26, 2014 09:53 AM TOBACCO MEDS OFFER ED BUT DECLINED [facility] Advance Directives: All historical and current Section Date Range: From patient's date of to the date document was created. This section includes ALL of a patient's completed or amended [place] Advance and Rescinded Directives. The entries below indicate that a directive exists for the patient, but an actual copy is not included with this document. The data comes from all [place] facilities. Date Advance Directives Provider Source Jul 06, 2019 ADVANCE DIRECTIVE DISCUSSION JJ REZA [facility] Encounter Notes: All associated encounter notes This section contains the clinical notes associated to the Encounter. Date/Time Encounter Note(s) Provider Source Apr 21, 2023 05:04 PM CAREGIVER CERTIFIC ATE: LOCAL TITLE: CSP TELEPHONE NOTE STANDARD TITLE: CAREGIVER CERTIFICATE DATE OF NOTE: APR 21, 2023@17:04 ENTRY DATE: APR 21, 2023@17:05:10 AUTHOR: BRAYAN GALARZA EXP COSIGNER: URGENCY: STATUS: COMPLETED Scheduled and CG assessments via telephone for 04/24/23 @ 9am and 10am. /es/ DIANA Galarza, MARKETING COMMUNICATIONS MANAGER [employer] Signed: 04/21/2023 17:05 Receipt Acknowledged By: 04/22/2023 08:00 /es/ JASON CABA REIMBURSEMENT LIAISON 04/24/2023 09:04 /es/ ARABELLA DASILVA [employer] Digger BRAYAN GALARZA [facility]
--- OUTSIDE RECORDS SUMMARY | 2024-04-20 04:55 | XMS_ITS | Encounter Summary ---
Author Name [facility] [place] Address [address] [place] [address] Care Team Providers Care Vertica Architect Name Role Phone SHELL LILLY Primary Care Provider Unavailabl e Insurance [...] Nichols's Name Patient's Relationship to Policy Nichols [facility] Oct 29, 2012 Dec 27, 2026 [facility] [id number] [phone] ALEC MORATAYA PATIENT [facility] Oct 29, 2012 Dec 27, 2026 [facility] [id number] [phone] ALEC MORATAYA PATIENT Selected Encounter This section includes the information on record at [place] for the Encounter. Date/Time Encounter Type Encounter Description Reason Provider Source May 15, 2023 10:30 AM Outpatient Encounter CARDIOLOGY ICD-10-CM E78.5 Hyperlipidemia, unspecified ZOFIA WALL IHApril Encounter Template Text not used by [place] Assessments - Encounter Diagnoses This section includes the primary and secondary diagnoses documented for the Encounter. Date/Time Primary/Secondary Diagnosis Diagnosis Name Provider Source May 15, 2023 10:55 AM PRIMARY Hyperlipidemia, unspecified SHAWNA WALL [facility] May 15, 2023 10:55 AM SECONDARY Heart failure, unspecified SHAWNA WALL [facility] May 15, 2023 10:55 AM SECONDARY Unspecified systolic (congestive) heart failure SHAWNA WALL [facility] Plan of Treatment: Future Appointments (+ 6 months) and Future Tests (+/- 45 days) The Plan of Treatment section includes future care activities for the patient from all [place] [facility] This section includes future appointments and future orders which are active, pending or scheduled. Future Appointments This section includes appointments that were scheduled to occur 6 months from the date of the Encounter, up to a maximum of 20 appointments. The data comes from all [facility] facilities. Appointment Date/Time Appointment Type Appointme nt Facility Name Jun 25, 2023 09:30 AM AMBULATORY - MEDICINE [facility] Jul 08, 2023 01:30 PM AMBULATORY - MEDICINE [facility] Jul 30, 2023 10:30 AM AMBULATORY - MEDICINE [facility] Sep 29, 2023 02:00 PM AMBULATORY - MEDICINE [facility] Oct 28, 2023 09:00 AM AMBULATORY - MEDICINE [facility] Social History: Smoking Status (Most current) and [...] 06, 2023 02:41 PM VA-TOBACCO NEVER USED [facility] Tobacco Use History This section includes a history of the smoking, or tobacco-related health factors, that were collected on or before the date of the Encounter. The data comes from the [place] facility where the Encounter took place. Date/Time Smoking Status/Tobacco Use Comment F acility Jul 06, 2019 01:16 AM ORYX ADMIT TOBACCO SCREEN NO [facility] Feb 16, 2019 10:39 PM ORYX ADMIT TOBACCO SCREEN NO [facility] Nov 20, 2015 11:29 AM CURRENT TOBACCO USER [facility] Nov 20, 2015 11:29 AM TOBACCO MEDS OFFER ED BUT DECLINED [facility] Dec 26, 2014 09:53 AM CURRENT TOBACCO USER [facility] Dec 26, 2014 09:53 AM TOBACCO MEDS OFFER ED BUT DECLINED [facility] Advance Directives: All historical and [...] 06, 2019 ADVANCE DIRECTIVE DISCUSSION JJ REZA [facility] Encounter Notes: All associated encounter notes This section contains the clinical notes associated to the Encounter. Date/Time Encounter Note(s) Provider Source May 15, 2023 10:49 AM CARDIOLOGY NOTE: LOCAL TITLE: CARDIOLOGY CHART REVIEW [facility] STANDARD TITLE: CARDIOLOGY NOTE DATE OF NOTE: MAY 15, 2023@10:49 ENTRY DATE: MAY 15, 2023@10:49:11 AUTHOR: SHAWNA WALL COSIGNER: URGENCY: STATUS: COMPLETED Chart Review below. Patient was a no show to appointment. [facility] ADVANCED HEART FAILURE SERVICE: FOLLOW-UP VISIT NOTE PRINCIPAL AND SECONDARY DIAGNOSES: 1. 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 LBBB 5. CKD CARE TEAM: 1.PCP [facility] INTERVAL HISTORY: 62 year-old MALE with NICM LV EF improved to 45-50% by Echo on 06/04, from prior of 30-35% by Echo on 07/01 (LHC on 07/01 showed LVEDP of 33, No , non angiographic cornary stenosis, LM coming off the Rt sinus of Valsalva), LBBB, h/o ASD s/p surgical closure 2000, LBBB Asthma, DM2, HTN, HL, LITTLE, CKD Cr 1.3- 1.7, h/o prostate abscess, who presents today for follow up. He was last seen in clinic 04/01/23 Presents for follow up. States he feels okay today. He endorses increased LE edema. Able to walk 1/2 mile, 2 flights of stairs limited mainly by leg pains, but does endorse non limiting WILLOUGHBY. Denies CP, LH, palp. 2 pillows orthopnea, PND. Weight today 283 in clinic today up form 269 last year . States he has been taking his torsemide as ordered. Sometimes he checks his BP at home and reported a reading of 130/80 and 170/90s but doesn't track this. Quiting smoking 15+ years ago, denies drinking, and denies drug use. During this visit his coreg and empagliflozin were restarted after he has recently refused renewal of these medications during a previous PCP visit for unknown reasons. His diuretics were increased due to increase LE edema. Patient was to track weight daily and to follow up 1 one week for labs and weight trend. He was a now show to clinic visit today. Since we last saw the patient, MORATAYAJAHAIRA Lunsford has had no hospitalizations or ER visits for heart failure. Of note, a 12 point REVIEW OF SYSTEMS was performed; all other review of systems negative, except as listed in the interval history. CURRENT OUTPATIENT MEDICATIONS: Active Outpatient Medications (including Supplies): Active Outpatient Medications Status 1) ACCU-CHEK GUIDE (GLUCOSE) TEST STRIP USE 1 STRIP FOR ACTIVE BLOOD TEST FOUR TIMES A DAY 2) ACCU-CHEK GUIDE ME (GLUCOSE) METER USE GLUCOSE METER ACTIVE FOR DIRECTED FOR BLOOD SUGAR MONITORING -CONTACT COMPANY FOR REPLACEMENT OR PROBLEM 3) ALBUTEROL 90MCG (CFC-F) 200D ORAL INHL INHALE 2 PUFFS ACTIVE BY ORAL INHALATION FOUR TIMES A DAY NEEDED SHAKE WELL. RINSE MOUTHPIECE FREQUENTLY TO PREVENT CLOGGING. 4) ALBUTEROL SO4 0.083% INHL 3ML INHALE 1 VIAL ACTIVE (2.5MG/3ML) BY NEBULIZATION EVERY 6 HOURS DIRECTED NEEDED FOR EXERCISE-INDUCED BRONCHOSPASM 5) ALLOPURINOL 300MG TAB TAKE ONE TABLET BY MOUTH ONCE A ACTIVE DAY FOR GOUT TAKE WITH PLENTY OF WATER. 6) ATORVASTATIN CALCIUM 80MG TAB TAKE ONE-HALF TABLET BY ACTIVE MOUTH EVERY EVENING FOR CHOLESTEROL. REPORT ANY UNEXPLAINED MUSCLE PAIN/WEAKNESS TO PROVIDER. 7) FORMOTEROL 5/MOMETASONE 200MCG 120D INHL INHALE 2 ACTIVE INHALATIONS BY ORAL INHALATION TWICE A DAY DIRECTED FOR BREATHING. RINSE MOUTH AND SPIT AFTER USE. DO NOT EXCEED 4 INHALATIONS PER 24 HOURS. 8) HYDRALAZINE HCL 100MG TAB TAKE ONE TABLET BY MOUTH ACTIVE THREE TIMES A DAY FOR BLOOD PRESSURE 9) INSULIN,ASPART(EQV-NOVLG)100 UN/ML FLXPEN INJECT 16 ACTIVE UNITS UNDER THE SKIN BEFORE BREAKFAST AND INJECT 16 UNITS BEFORE LUNCH AND INJECT 16 UNITS BEFORE SUPPER FOR BLOOD SUGAR CONTROL. ADMINISTER 10 MINUTES BEFORE FOOD DIRECTED. REFRIGERATE UN-OPENED PENS. DISCARD CARTRIDGE 28 DAYS AFTER OPENING. 10) INSULIN,GLARGINE-YFGN 100UNIT/ML PEN 3ML INJECT 50 ACTIVE UNITS UNDER THE SKIN ONCE A DAY FOR BLOOD SUGAR CONTROL. ADMINISTER AT SAME TIME EACH DAY DIRECTED. DISCARD ANY OPEN CARTRIDGE AFTER 28 DAYS. 11) ISOSORBIDE DINITRATE 20MG ORAL TAB TAKE TWO TABLETS ACTIVE BY MOUTH THREE TIMES A DAY BEFORE MEALS FOR CHEST PAIN ALLOW 10 TO 12 HOURS BETWEEN NIGHT AND MORNING DOSE. 12) LANCET,SOFTCLIX USE LANCET FOR BLOOD TEST FOUR TIMES ACTIVE A DAY NEEDED FOR BLOOD SUGAR MONITORING USE DIRECTED. 13) MED ORGANIZER 7DAY/4 SLOT APEX#31533 USE PILLBOX ACTIVE DIRECTED FOR MEDICATION STORAGE/PLANNING 14) MONTELUKAST NA 10MG TAB TAKE ONE TABLET BY MOUTH ACTIVE EVERY EVENING FOR ASTHMA 15) OMEPRAZOLE 10MG EC CAP TAKE ONE CAPSULE BY MOUTH ONCE ACTIVE A DAY FOR GASTROESOPHAGEAL REFLUX DISEASE TAKE 30 MINUTES PRIOR TO FOOD. 16) PREDNISONE 10MG TAB TAKE THREE TABLETS BY MOUTH EVERY ACTIVE MORNING FOR 3 DAYS, THEN TAKE TWO TABLETS EVERY MORNING FOR 3 DAYS, THEN TAKE ONE TABLET EVERY MORNING FOR 3 DAYS, THEN TAKE ONE-HALF TABLET EVERY MORNING FOR 3 DAYS TAKE WITH FOOD OR MILK. 17) SPIRONOLACTONE 25MG TAB TAKE ONE TABLET BY MOUTH ONCE ACTIVE A DAY 18) TIOTROPIUM 2.5MCG/ACTUAT 60D ORAL INHL INHALE 2 ACTIVE INHALATIONS BY ORAL INHALATION ONCE A DAY FOR COPD (ADMINISTER AT SAME TIME EACH DAY) 19) TOPIRAMATE 50MG TAB TAKE ONE TABLET BY MOUTH TWICE A ACTIVE DAY FOR MIGRAINE PROPHYLAXIS 20) TORSEMIDE 20MG TAB TAKE TWO TABLETS BY MOUTH TWICE A ACTIVE DAY FOR FLUID RETENTION (EDEMA) (TAKE IN MORNING AND AFTERNOON) 21) VALSARTAN 160MG TAB TAKE ONE TABLET BY MOUTH TWICE A ACTIVE DAY TO LOWER BLOOD PRESSURE Active Non-VA Medications Status 1) Non-VA AMLODIPINE BESYLATE 10MG TAB 10MG BY MOUTH ACTIVE ONCE A DAY 2) Non-VA ASPIRIN 81MG CHEW TAB 81MG BY MOUTH ONCE A DAY ACTIVE 3) Non-VA TAMSULOSIN HCL 0.4MG CAP 0.4MG BY MOUTH ONCE A ACTIVE DAY 24 Total Medications - All cardiac medications were reconciled during the visit. ATORVASTATIN HYDRALAZINE 100 TID ISOSORBIDE 40 TID Luis Miguel 25 daily Torsemide 40 BID Valsartan 160 BID Empagflozin not taking Coreg, ran out two days ago. PHYSICAL EXAM: DIAGNOSTIC DATA: ###. ECHOCARDIOGRAM: 05/2020 1. Global systolic function: Overall left ventricular systolic function is mildly impaired with an estimated ejection fraction of 45 - 50%. 2. This was a technically very difficult study despite the use of Echo enhancing agent. 3. Moderate diastolic dysfunction (grade II) with elevated left atrial filling pressure. 4. Normal right ventricular size and systolic function. 5. The left atrium is mildly enlarged. 6. Pulmonary pressures are within normal limits. 7. No hemodynamically significant valvular abnormality. 8. As compared to the previous echocardiogram done on 07/06/2019, LVEF is improved ###. ECG: -02/2020 NSR w/ LBBB ###. CARDIAC CATH: LHC on 07/01 showed LVEDP of 33, No , non angiographic cornary stenosis, LM coming off the Rt sinus of Valsalva ###. ICD: NO ###. Current NYHA Class: III ###. LABORATORIES: COMPREHENSIVE METABOLIC PANEL SODIUM 138 mEq/L 01/21/2023 10:06 POTASSIUM 3.8 mEq/L 01/21/2023 10:06 CHLORIDE 107 mEq/L 01/21/2023 10:06 UREA NITROGEN 18.0 mg/dL 01/21/2023 10:06 CREATININE 1.53 H mg/dL 01/21/2023 10:06 CALCIUM 8.9 mg/dL 01/21/2023 10:06 PROTEIN 7.7 g/dL 01/21/2023 10:04 ALBUMIN 4.1 g/dL 01/21/2023 10:06 EGFR (DISCONTINUED 07/12/21) 48.2 05/25/2021 16:46 ALKALINE PHOSPHATASE 78 U/L 01/21/2023 10:04 ALT/SGPT 18 U/L 01/21/2023 10:04 AST/SGOT 12 U/L 01/21/2023 10:04 TOTAL BILIRUBIN 0.6 mg/dL 01/21/2023 10:04 CARBON DIOXIDE 21 L mEq/L 01/21/2023 10:06 GLUCOSE 308 H mg/dL 01/21/2023 10:06 EGFR (CKD-EPI 2020) 51.4 01/21/2023 10:06 COMPLETE BLOOD COUNT WBC 5.8 10*3/uL 09/11/2022 11:26 RBC 4.80 10*6/uL 09/11/2022 11:26 HGB 12.4 L g/dL 09/11/2022 11:26 HCT 39.0 % 09/11/2022 11:26 MCV 81.3 fL 09/11/2022 11:26 MCH 25.8 L pg 09/11/2022 11:26 MCHC 31.8 L g/dL 09/11/2022 11:26 RDW 16.5 H % 09/11/2022 11:26 PLT 174 10*3/uL 09/11/2022 11:26 MPV 11.7 H fL 09/11/2022 11:26 NEUTROPHILS, AUTO % 60 % 09/11/2022 11:26 LYMPHOCYTES, AUTO % 26 % 09/11/2022 11:26 MONOCYTES, AUTO % 10 % 09/11/2022 11:26 EOSINOPHILS, AUTO % 3 % 09/11/2022 11:26 BASOPHILS, AUTO % 1 % 09/11/2022 11:26 IMMATURE GRANS, AUTO % 0.5 % 12/06/2021 10:54 NEUTROPHILS, ABSOLUTE 3.47 10*3/uL 09/11/2022 11:26 LYMPHOCYTES, ABSOLUTE 1.49 10*3/uL 09/11/2022 11:26 MONOCYTES, ABSOLUTE 0.57 10*3/uL 09/11/2022 11:26 EOSINOPHILS, ABSOLUTE 0.18 10*3/uL 09/11/2022 11:26 BASOPHILS, ABSOLUTE 0.05 10*3/uL 09/11/2022 11:26 IMMATURE GRANS, AUTO ABS 0.03 10*3/uL 12/06/2021 10:54 COAGULATION STUDIES No INR EO data found No PTT EO data found HGA1C: HGA1C 9.1 H % 01/21/2023 10:04 LIPIDS TRIGLYCERIDE 377 H mg/dL 01/21/2023 10:04 CHOLESTEROL 125 mg/dL 01/21/2023 10:04 HDL(New) 27 L mg/dL 01/21/2023 10:04 DIRECT LDL 46 L mg/dL 01/21/2023 10:04 CALCULATED LDL comment mg/dL 01/21/2023 10:04 CARDIAC BIOMARKERS BNP: No BRAIN NATRIURETIC PEPTIDE data found Trop: The OBJECT TROPONIN I EO was NOT found...Contact IRM. IRON STUDIES FERRITIN: FERRITIN 91.53 ng/mL 04/16/2021 11:57 TSAT: The OBJECT TRANSFERRIN EO was NOT found...Contact IRM. ASSESSMENT AND PLAN: Plan from previous visit. In summary, JAHAIRA MORATAYA is a 62 MALE with a history of NICM LV EF improved to 45-50%, LM coming off the Rt sinus of Valsalva , LBBB, h/o ASD s/p surgical closure 2000, LBBB who presents for follow up. Overall, the patient is endorsing NYHA class III symptoms and is hypervolemic on exam today with +2LE edema, JVD, and weight up +10 pounds over last year. Despite his volume states he states he feel okay. Has not noticed increased WILLOUGHBY or SOB. Barries BMI 43 PLAN: #NICM LV EF improved to 45-50% by Echo on 06/04, from prior of 30-35% by Echo on 07/01 (LHC on 07/01 showed LVEDP of 33 -Increase torsemide from 40mg BID to 60 mg BID for the next 7 days. Patient got labs today with K 3.4, will start KCL. BNP 300, was previously 100s two years ago. Repeat labs next week. ~Restart empagliflozin today. For unknown reasons it patient refused renewal at PCP visit in November. ~HYDRALAZINE 100 TID and ISOSORBIDE 40 TID for ALR ~spironolactone 25 mg daily ~Increase Torsemide from 40 BID to 60 MG BID for next 7 days. Patient to track weight daily at home. Given weight gain over last 2 months patient may need permanent increase in his loop diuretic. If continues to require high doses would change to Bumex 3 BID ~Valsartan 160 BID ~Coreg 6.25 BID. He ran out of the medication two days ago and didn't order more because he refused renewal for unknown reason at his PCP visit #HTN: poorly controlled today, resume coreg. 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 /darwin/ SHAWNA WALL NP Signed: 05/15/2023 10:55 SHAWNA WALL [facility]
--- OUTSIDE RECORDS SUMMARY | 2024-04-20 04:55 | XMS_ITS | Encounter Summary ---
Author Name [place] Address [address] [place] [address] Care Team Providers Care Reel Blade Bender Furnace Tender Name Role Phone SHAMA LILLY Primary Care [...] Nichols's Name Patient's Relationship to Policy Nichols [facility] Oct 29, 2012 Dec 27, 2026 [facility] [id number] [phone] ALEC MCCLELLAND PATIENT OPTUM [facility] Oct 29, 2012 Dec 27, 2026 [facility] [id number] ALEC MCCLELLAND PATIENT Selected Encounter This section includes the information on record at [place] for the Encounter. Date/Time Encounter Type Encounter Description Reason Pro vider Source May 15, 2023 11:38 AM Outpatient Encounter ADMIN PAT ACTIVTIES (MASNONCT) IHE Encounter Template Text not used by [place] Plan of Treatment: Future Appointments (+ 6 [...] 20 appointments. The data comes from all [place] treatment facilities. Appointment Date/Time Appointment Type Appointme nt Facility Name Jun 25, 2023 09:30 AM AMBULATORY - MEDICINE [facility] Jul 08, 2023 01:30 PM AMBULATORY - MEDICINE [facility] Jul 30, 2023 10:30 AM AMBULATORY - MEDICINE [facility] Sep 29, 2023 02:00 PM AMBULATORY - MEDICINE [facility] Oct 28, 2023 09:00 AM AMBULATORY - MEDICINE [facility] Social History: Smoking Status (Most current) and Tobacco Use (All prior to encounter date) This section includes the most current, and the historical, smoking and tobacco- related health factors from the [place] facility where the Encounter took place. Current Smoking Status This section includes the most current smoking, or tobacco-related health factor, from the [place] facility where the Encounter took place. Date/Time Current Smoking Status Comment Arnulfo ity Jan 06, 2023 02:41 PM VA-TOBACCO NEVER USED [facility] Tobacco Use History This section includes a history of the smoking, or tobacco-related health factors, that were collected on or before the date of the Encounter. The data comes from the [place] facility where the Encounter took place. Date/Time Smoking Status/Tobacco Use Comment F acility Jul 06, 2019 01:16 AM ORYX ADMIT TOBACCO SCREEN NO [facility] Feb 16, 2019 10:39 PM ORYX ADMIT TOBACCO SCREEN NO [facility] Nov 20, 2015 11:29 AM CURRENT TOBACCO USER [facility] Nov 20, 2015 11:29 AM TOBACCO MEDS OFFER ED BUT DECLINED [facility] Dec 26, 2014 09:53 AM CURRENT TOBACCO USER [facility] Dec 26, 2014 09:53 AM TOBACCO MEDS OFFER ED BUT DECLINED [facility] Advance Directives: All historical and current Section Date Range: From patient's date of to the date document was created. This section includes ALL of a patient's completed or amended [place] Advance and Rescinded Directives. The entries below indicate that a directive exists for the patient, but an actual copy is not included with this document. The data comes from all [place] facilities. Date Advance Directives Provider Source Jul 06, 2019 ADVANCE DIRECTIVE DISCUSSION JJ REZA [facility] Encounter Notes: All associated encounter notes This section contains the clinical notes associated to the Encounter. Date/Time Encounter Note(s) Provider Source May 15, 2023 11:39 AM PHYSICIAN LETTERS: LOCAL TITLE: NO CONTACT LETTER STL STANDARD TITLE: PHYSICIAN LETTERS DATE OF NOTE: MAY 15, 2023@11:39 ENTRY DATE: MAY 15, 2023@11:39:33 AUTHOR: ROGELIO PAK COSIGNER: URGENCY: STATUS: COMPLETED [facility] [address] [place] [phone] MAY 15, 2023 JAHAIRA MCCLELLAND [address] [place] [address] Dear Jahaira Mcclelland, Thank you for choosing the [facility] as your primary choice for health care. As a partner in your health care, we are attempting to contact you because we have been unsuccessful in reaching you by phone to schedule your clinic appointment. Please call us at [phone], [phone] to speak to us regarding making an appointment in the -CARDIOLOGY/KREMMEL clinic. Your good health is important to us. Please contact us within 2 weeks from the date of this letter. If we do not hear from you, we will notify your referring provider and a new referral will be required to schedule an appointment. IMPORTANT: Due to COVID-19 we have greatly expanded our telehealth options, please contact the clinic to inquire about scheduling. Sincerely, ROGELIO PAK ADVANCED DONOR RELATIONS MANAGER JAHAIRA MCCLELLAND [facility] May 15, 2023 11:38 AM ADMINISTRATIVE NOT E: LOCAL TITLE: SCHEDULING NOTE STL STANDARD TITLE: ADMINISTRATIVE NOTE DATE OF NOTE: MAY 15, 2023@11:38 ENTRY DATE: MAY 15, 2023@11:38:27 AUTHOR: ROGELIO PAK COSIGNER: URGENCY: STATUS: COMPLETED Minimum Scheduling attempts to contact the [facility] have been made. RTC/Appt/Consult request will be discontinued after 14 days. Clinic: CARDIOLOGY CARLY: May First Call to - unsuccessful scheduling: May Unable to contact [facility], letter sent: May Discontinue date (14 calendar days after letter is mailed): May ADDITIONAL RESULTS FROM SCHEDULING ATTEMPTS: /darwin/ ROGELIO PAK ADVANCED DONOR RELATIONS MANAGER Signed: 05/15/2023 11:39 ROGELIO PAK [facility]
--- OUTSIDE RECORDS SUMMARY | 2024-04-20 04:55 | XMS_ITS | Encounter Summary ---
Author Name [facility] [place] [facility] [place] Address [address] [place] [address] Care Team Providers Care Journal Box Inspector Name Role Phone SHAMA LILLY Primary Care [...] Nichols's Name Patient's Relationship to Policy Nichols [facility] Oct 29, 2012 Dec 27, 2026 [facility] [id number] [phone] ALEC MORATAYA PATIENT OPTUM [facility] Oct 29, 2012 Dec 27, 2026 [facility] [id number] ALEC MORATAYA PATIENT Selected Encounter This section includes the information on record at [place] for the Encounter. Date/Time Encounter Type Encounter Description Reason Pro vider Source Jun 06, 2023 09:40 AM Outpatient Encounter ADMIN PAT ACTIVTIES (MASNONCT) IHE Encounter Template Text not used by [place] Plan of Treatment: Future Appointments (+ 6 [...] 20 appointments. The data comes from all [facility]. Appointment Date/Time Appointment Type Appointme nt Facility Name Jun 25, 2023 09:30 AM AMBULATORY - MEDICINE [facility] Jul 08, 2023 01:30 PM AMBULATORY - MEDICINE [facility] Jul 30, 2023 10:30 AM AMBULATORY - MEDICINE [facility] Sep 29, 2023 02:00 PM AMBULATORY - MEDICINE [facility] Oct 28, 2023 09:00 AM AMBULATORY MEDICINE [facility] Active, Pending, and Scheduled Orders This section includes a listing of several types of active, pending, and scheduled orders, including clinic medications orders, diagnostic test orders, procedure orders and consult orders; where the start date of the order is 45 days before the date of the Encounter or 45 days after the date of theEncounter. The data comes from all [facility]. Test Date/Time Test Type Test Details Facility Name Jul 14, 2023 12:00 AM Laboratory - Chemi stry Order CBC BLOOD [facility] Jul 14, 2023 12:00 AM Laboratory - Chemi stry Order RENAL PANEL GREEN LI/HEP BLD/PLAS PLASMA [facility] Jul 14, 2023 12:00 AM Laboratory - Chemi stry Order VITAMIN D, 25-HYDROXY GOLD/RED SST SERUM SP [facility] Jul 14, 2023 12:00 AM Laboratory - Chemi stry Order PTH, INTACT (STL) RED/NO-GEL SERUM SP [facility] Jul 14, 2023 12:00 AM Laboratory - Chemi stry Order MICRAL/CREAT PROFILE (STL) URINE YELLOW [facility] Jul 14, 2023 12:00 AM Laboratory - Chemi stry Order URIC ACID GREEN LI/HEP BLD/PLAS PLASMA [facility] Jul 14, 2023 12:00 AM Laboratory - Chemi stry Order HGA1C BLOOD SP [facility] Lab Results: +/- 30 days of the encounter This section includes the Chemistry and Hematology Lab Results on record with [place] for the patient. Radiology Reports and Pathology Reports are provided separately, in subsequent sections. Lab Results This section contains the Chemistry/Hematology Results that were resulted 30 days before or 30 daysafter the date of the Encounter. Date/Time Source Result Type Result - Unit Interpretation Reference Range Comment Jun 25, 2023 10:55 AM [facility] CBC Specimen Type: BLOOD No comment entered. Ordering Provider: GINI RIVERA Report Released Date/Time: Jun 25, 2023 10:12 AM Reporting Lab: [facility] [address] [facility] [address] Performing Lab: [facility] [address] [facility] [address] WBC 5.7 10*3/uL 3.6-11.2 RBC 5.00 10*6/uL 4.10-5.70 HGB 12.8 g/dL L 13.1-16.8 HCT 39.5 38.2-48.4 MCV 79.0 fL L 80.0-100.0 MCH 25.6 pg L 27.0-34.0 MCHC 32.4 g/dL L 33.0-36.0 PLT 166 10*3/uL 150-400 MPV 11.8 fL H 7.5-11.2 RDW 15.5 H 11.8-15.1 LYMPHOCYTES, AUTO % 25 MONOCYTES, AUTO % 9 NEUTROPHILS, AUTO % 60 EOSINOPHILS, AUTO % 4 BASOPHILS, AUTO % 1 LYMPHOCYTES, ABSOLUTE 1.45 10*3/uL 0.77-4.50 MONOCYTES, ABSOLUTE 0.50 10*3/uL 0.19-0.80 NEUTROPHILS, ABSOLUTE 3.44 10*3/uL 2.10-8.00 EOSINOPHILS, ABSOLUTE 0.25 10*3/uL 0.00-0.60 BASOPHILS, ABSOLUTE 0.03 10*3/uL 0.00-0.20 Jun 25, 2023 10:55 AM [facility] IMMUNOGLOBULIN E Specimen Type: SERUM Comment: Test Performed by Ariella Snyder, [employer], [address] [place], [place] Shmuel Michaels M.D., Ph.D., Director of Laboratories , [facility] [id number] Ordering Provider: GINI RIVERA Report Released Date/Time: Jun 25, 2023 10:12 AM Reporting Lab: [facility] [address] [address] Performing Lab: [facility] [address] [facility] IMMUNOGLOBULIN E 171 kU/L H <=114 Social History: Smoking Status (Most current) and Tobacco Use (All prior to encounter date) This section includes the most current, and the historical, smoking and tobacco- related health factors from the [place] facility where the Encounter took place. Current Smoking Status This section includes the most current smoking, or tobacco-related health factor, from the [place] facility where the Encounter took place. Date/Time Current Smoking Status Comment Facil ity Jan 06, 2023 02:41 PM VA-TOBACCO NEVER USED [facility] Tobacco Use History This section includes a history of the smoking, or tobacco-related health factors, that were collected on or before the date of the Encounter. The data comes from the [place] facility where the Encounter took place. Date/Time Smoking Status/Tobacco Use Comment F acility Jul 06, 2019 01:16 AM ORYX ADMIT TOBACCO SCREEN NO [facility] Feb 16, 2019 10:39 PM ORYX ADMIT TOBACCO SCREEN NO [facility] Nov 20, 2015 11:29 AM CURRENT TOBACCO USER [facility] Nov 20, 2015 11:29 AM TOBACCO MEDS OFFER ED BUT DECLINED [facility] Dec 26, 2014 09:53 AM CURRENT TOBACCO USER [facility] Dec 26, 2014 09:53 AM TOBACCO MEDS OFFER ED BUT DECLINED [facility] Advance Directives: All historical and current Section Date Range: From patient's date of to the date document was created. This section includes ALL of a patient's completed or amended [place] Advance and Rescinded Directives. The entries below indicate that a directive exists for the patient, but an actual copy is not included with this document. The data comes from all [place] facilities. Date Advance Directives Provider Source Jul 06, 2019 ADVANCE DIRECTIVE DISCUSSION JJ REZA [facility] Radiology Reports: +/- 30 days of the encounter Radiology Reports For cases when an order for radiology services may have been completed prior to the date of the Encounter, the report list includes the Radiology Reports that were completed up to 30 days before dateof the Encounter. For cases when an order for radiology services may have been completed after the date of the Encounter, the report list also includes the Radiology Reports that were completed up to30 days after date of the Encounter. The data comes from all [place] treatment facilities. Date/Time Radiology Report Provider Source Jun 25, 2023 11:04 AM CHEST X-RAY, 2 VIE WS: JAHAIRA MORATAYA [id number] -1960 M Exm Date: JUN 25, 2023@11:04 Req Phys: BIANCA RIVERA Pat Loc: -PULMONARY DEMIDENKO (Req'g Img Loc: -MAIN RADIOLOGY SUITE Service: Unknown (Case [id number] COMPLETE) CHEST X-RAY, 2 VIEWS (RAD Detailed) CPT:70744 Reason for Study: cough Clinical History: asthma Report Status: Verified Date Reported: JUN 25, 2023 Date Verified: JUN 25, 2023 Correctional Guard E-Sig:/ES/ADE BROWNE MD Report: Case #[id number]. Chest examination. COMPARISON: 09/11/2022. Finding: PA and lateral views of the chest examination shows that the cardiac shadow is upper limit of normal range. Sternotomy sutures seen. Aortic shadow is unremarkable. Trachea is in the midline. The images are underpenetrated. No evidence of consolidation or mass. Soft tissue density in the periphery of the lower lung field bilaterally shows no interval change in comparison to previous study. Impression: Borderline heart. No evidence of consolidation or mass. Suggestive of pleural fat bilaterally. Primary Interpreting Staff: ADE BROWNE MD, Staff Physician - Radiologist (Correctional Guard) /ADE MORE [facility] Encounter Notes: All associated encounter notes This section contains the clinical notes associated to the Encounter. Date/Time Encounter Note(s) Provider Source Jun 06, 2023 08:40 AM ADMINISTRATIVE NOT E: LOCAL TITLE: CCC: SCHEDULING ADMINISTRATION STANDARD TITLE: ADMINISTRATIVE NOTE DATE OF NOTE: JUN 06, 2023@08:40:21 ENTRY DATE: JUN 06, 2023@08:40:21 AUTHOR: DAVON ABRAHAM EXP COSIGNER: URGENCY: STATUS: COMPLETED Patient Demographics Patient Name: JAHAIRA MORATAYA Patient Primary Phone: [phone] Patient Primary Address: [address] [place] [address] [place] [address] Patient : 1960 Patient Age: 62 Caller/Recipient Relation to Patient: Caregiver Caller Name: Krystin Administrative Administrative Note Reason: Other Administrative Note Comments: Kitty is requesting a call back to r/s Cardio appt for 05/15/23. /darwin/ DAVON ABRAHAM Signed: 06/06/2023 08:40 Receipt Acknowledged By: 06/10/2023 09:39 /darwin/ ROGELIO PAK ADVANCED PRESSER ALL AROUND DAVON ABRAHAM [facility]
--- OUTSIDE RECORDS SUMMARY | 2024-04-20 04:55 | XMS_ITS ---
Author Name [facility] [place] Address [address] [place] [address] Care Team Providers Care Warehouse Receiving Supervisor Name Role Phone SHAMA LILLY Primary Care [...] Nichols's Name Patient's Relationship to Policy Nichols [facility] Oct 29, 2012 Dec 27, 2026 [facility] [id number] [phone] ALEC MCCLELLAND PATIENT OPTUM RX [facility] Oct 29, 2012 Dec 27, 2026 [facility] [id number] [phone] ALEC MCCLELLAND PATIENT Selected Encounter This section includes the information on record at [place] for the Encounter. Date/Time Encounter Type Encounter Description Reason Provider Source May 28, 2023 01:31 PM Outpatient Encounter ADMIN PAT ACTIVTIES (MASNONCT) BRAYAN GALARZA April Encounter Template Text not used by [place] Plan of Treatment: Future Appointments (+ 6 [...] 20 appointments. The data comes from all [place] treatment facilities. Appointment Date/Time Appointment Type Appointme nt Facility Name Jun 25, 2023 09:30 AM AMBULATORY - MEDICINE [facility] Jul 08, 2023 01:30 PM AMBULATORY - MEDICINE [facility] Jul 30, 2023 10:30 AM AMBULATORY - MEDICINE [facility] Sep 29, 2023 02:00 PM AMBULATORY - MEDICINE [facility] Oct 28, 2023 09:00 AM [facility] Lab Results: +/- 30 days of the encounter This section includes the Chemistry and Hematology Lab Results on record with [place] for the patient. Radiology Reports and Pathology Reports are provided separately, in subsequent sections. Lab Results This section contains the Chemistry/Hematology Results that were resulted 30 days before or 30 daysafter the date of the Encounter. Date/Time Source Result Type Result - Unit Interpretation Reference Range Comment Jun 25, 2023 10:55 AM [facility] CBC Specimen Type: BLOOD No comment entered. Ordering Provider: GINI RIVERA Report Released Date/Time: Jun 25, 2023 10:12 AM Reporting Lab: [facility] [address] [facility] [address] Performing Lab: [address] [address] WBC 5.7 10*3/uL 3.6-11.2 RBC 5.00 10*6/uL [...] 10*3/uL 0.00-0.20 Jun 25, 2023 10:55 AM [facility] IMMUNOGLOBULIN E Specimen Type: SERUM Comment: Test Performed by [facility], [facility], [address] [place] [address] Shmuel Michaels M.D., Ph.D., Director of Laboratories , CLIA [id number] Ordering Provider: GINI RIVERA Report Released Date/Time: Jun 25, 2023 10:12 AM Reporting Lab: [facility] [address] [facility] [address] Performing Lab: [address] IMMUNOGLOBULIN E 171 kU/L H <=114 Social History: Smoking Status (Most current) and Tobacco Use (All prior to encounter date) This section includes the most current, and the historical, smoking and tobacco- related health factors from the [place] facility where the Encounter took place. Current Smoking Status This section includes the most current smoking, or tobacco-related health factor, from the [place] facility where the Encounter took place. Date/Time Current Smoking Status Comment Facil ity Jan 06, 2023 02:41 PM VA-TOBACCO NEVER USED [facility] Tobacco Use History This section includes a history of the smoking, or tobacco-related health factors, that were collected on or before the date of the Encounter. The data comes from the [place] facility where the Encounter took place. Date/Time Smoking Status/Tobacco Use Comment F acility Jul 06, 2019 01:16 AM ORYX ADMIT TOBACCO SCREEN NO [facility] Feb 16, 2019 10:39 PM ORYX ADMIT TOBACCO SCREEN NO [facility] Nov 20, 2015 11:29 AM CURRENT TOBACCO USER [facility] Nov 20, 2015 11:29 AM TOBACCO MEDS OFFER ED BUT DECLINED [facility] Dec 26, 2014 09:53 AM CURRENT TOBACCO USER [facility] Dec 26, 2014 09:53 AM TOBACCO MEDS OFFER ED BUT DECLINED [facility] Advance Directives: All historical and current Section Date Range: From patient's date of to the date document was created. This section includes ALL of a patient's completed or amended [place] Advance and Rescinded Directives. The entries below indicate that a directive exists for the patient, but an actual copy is not included with this document. The data comes from all [place] facilities. Date Advance Directives Provider Source Jul 06, 2019 ADVANCE DIRECTIVE DISCUSSION JJ REZA [facility] Radiology Reports: +/- 30 days of the [...] the Encounter. The data comes from all [place] treatment facilities. Date/Time Radiology Report Provider Source Jun 25, 2023 11:04 AM CHEST X-RAY, 2 VIE WS: JAHAIRA MCCLELLAND [id number] -1960 M Ex Date: JUN 25, 2023@11:04 Req Phys: BIANCA RIVERA Pat Loc: [facility]-P[facility] (Req'g Img Loc: [facility]-MAIN RADIOLOGY SUITE Service: Unknown (Case [id number] COMPLETE) CHEST X-RAY, 2 VIEWS (RAD Detailed) CPT:47237 Reason for Study: cough Clinical History: asthma Report Status: Verified Date Reported: JUN 25, 2023 Date Verified: JUN 25, 2023 Pattern Generator Operator E-Sig:/ES/ADE BROWNE MD Report: Case #[id number]. Chest [...] ADE BROWNE MD, Staff Physician - Radiologist (Pattern Generator Operator) /ADE MORE [facility] Encounter Notes: All associated encounter notes This section contains the clinical notes associated to the Encounter. Date/Time Encounter Note(s) Provider Source May 28, 2023 01:31 PM CAREGIVER CERTIFIC ATE: LOCAL TITLE: CSP DENIAL NOTE STANDARD TITLE: CAREGIVER CERTIFICATE DATE OF NOTE: MAY 28, 2023@13:31 ENTRY DATE: MAY 28, 2023@13:32:05 AUTHOR: BRAYAN GALARZA EXP COSIGNER: URGENCY: STATUS: COMPLETED Caregiver Support Program Denial Note Denial date: 05.28.23 Denied from the Program of Comprehensive Assistance for Family Caregivers. The denied person is the Primary Family Caregiver applicant. Name of : Kitty Mcclelland The reason for denial is the [place] or member services representative does not require personal care services for a minimum of 6 continuous months based on an inability to perform an ADL and/or a need for supervision, protection or instruction. The reason for denial is participation in the Program of Comprehensive Assistance for Family Caregivers was deemed not in the 's best interest. The reason for denial is the [place] or member services representative is not in need of personal care services that would be provided by the Family Caregiver or will be simultaneously and regularly provided by or through another individual or entity. The reason for denial is the or member services representative does not receive care at home or will not do so if [place] approves and designates a Family Caregiver. Date of verbal notification of determination: mailed notification Date determination letter was mailed: 05.28.23 The following information was provided: [place] and/or Community Resources Appeal and Review Options [id number] /darwin/ DIANA Galarza, INTERNET MARKETING COORDINATOR Individual Pension Adviser Signed: 05/28/2023 13:32 Receipt Acknowledged By: 05/28/2023 13:37 /es/ ARABELLA DASILVA Individual Pension Adviser 05/28/2023 15:17 /es/ JASON CABA BIOLOGICAL SCIENCES PROFESSOR [facility]
--- OUTSIDE RECORDS SUMMARY | 2024-04-20 04:56 | XMS_ITS | Encounter Summary ---
Author Name [facility] [place] [facility] [place] Address [address] [place] [address] Care Team Providers Care Life Insurance Actuary Name Role Phone SHELL LILLY Primary Care [...] Patient's Relationship to Policy Nichols [facility] Oct 29, 2012 Dec 27, 2026 [facility] [id number] [phone] MCCLELLANDALEC PATIENT [facility] Oct 29, 2012 Dec 27, 2026 [facility] [id number] ALEC MCCLELLAND PATIENT Selected Encounter This section includes the information on record at [place] for the Encounter. Date/Time Encounter Type Encounter Description Reason Provider Source Sep 29, 2023 02:00 PM OFFICE O/P EST MOD 30 MIN PULMONARY/CHEST ICD-10-CM J45.998 Other asthma YURY RIVERA Encounter Template Text not used by [place] Assessments - Encounter Diagnoses This section includes the primary and secondary diagnoses documented for the Encounter. Date/Time Primary/Secondary Diagnosis Diagnosis Name Provider Source Sep 29, 2023 05:55 PM PRIMARY Other asthma GINI RIVERA [facility] Sep 29, 2023 05:55 PM SECONDARY Chronic obstructive pulmonary disease, unspecified GINI RIVERA [facility] Sep 29, 2023 05:55 PM SECONDARY Chronic rhinitis GINI RIVERA [facility] Sep 29, 2023 05:55 PM SECONDARY Obesity, unspecified GINI RIVERA [facility] Sep 29, 2023 05:55 PM SECONDARY Obstructive sleep apnea (adult) (pediatric) [facility] Plan of Treatment: Future Appointments (+ 6 months) and Future Tests (+/- 45 days) The Plan of Treatment section includes future care activities for the patient from all [place] [facility]. This section includes future appointments and future orders which are active, pending or scheduled. Future Appointments This section includes appointments that were scheduled to occur 6 months from the date of the Encounter, up to a maximum of 20 appointments. The data comes from all [place] treatment facilities. Appointment Date/Time Appointment Type Appointme nt Facility Name Oct 28, 2023 09:00 AM AMBULATORY - MEDICINE [facility] Dec 19, 2023 01:40 PM AMBULATORY - MEDICINE [facility] Dec 23, 2023 12:30 PM AMBULATORY - MEDICINE [facility] Lab Results: +/- 30 days of the encounter This section includes the Chemistry and Hematology Lab Results on record with [place] for the patient. Radiology Reports and Pathology Reports are provided separately, in subsequent sections. Lab Results This section contains the Chemistry/Hematology Results that were resulted 30 days before or 30 daysafter the date of the Encounter. Date/Time Source Result Type Result - Unit Interpretation Reference Range Comment Oct 28, 2023 09:42 AM [facility] MICRAL/CREAT PROFILE (STL) Specimen Type: URINE No comment entered. Ordering Provider: MABEL MURPHY Report Released Date/Time: Oct 28, 2023 09:22 AM Reporting Lab: [address] [address] Performing Lab: [facility] [address] [facility] [address] URINE ALBUMIN (PB-STL) 341.2 mg/L uACR (STL) 664 mg/g H 0-29 CREATININE URINE/OTHERS 51.4 mg/dL L 63-166 Oct 28, 2023 09:39 AM [facility] PTH, INTACT (STL) Specimen Type: SERUM No comment entered. Ordering Provider: MABEL MURPYH Report Released Date/Time: Oct 28, 2023 09:22 AM Reporting Lab: [facility] [address] [facility] [address] Performing Lab: [address] [address] PTH, INTACT (STL) 57.70 pg/mL 8.7-77.7 Oct 28, 2023 09:39 AM [facility] VITAMIN D, 25-HYDROXY Specimen Type: SERUM No comment entered. Ordering Provider: MABEL MURPHY Report Released Date/Time: Oct 28, 2023 09:22 AM Reporting Lab: [facility] [address] [facility] [address] Performing Lab: [facility] [address] [facility] [address] VITAMIN D, 25-HYDROXY 15.6 ng/mL L 30-96 Oct 28, 2023 09:39 AM [facility] RENAL PANEL Specimen Type: PLASMA Comment: No hemolysis noted. Ordering Provider: MABEL MURPHY Report Released Date/Time: Oct 28, 2023 09:22 AM Reporting Lab: [facility] [address] [facility] [address] Performing Lab: [address] [address] CREATININE 1.69 mg/dL H 0.7-1.3 UREA NITROGEN 18.6 mg/dL 9.0-25.0 GLUCOSE 160 mg/dL H 72-99 SODIUM 141 meq/L 136-145 POTASSIUM 4.0 meq/L 3.5-5 CHLORIDE 106 meq/L 98-107 CARBON DIOXIDE 25 meq/L 22-31 CALCIUM 10.0 mg/dL 8.4-10.4 PHOSPHOROUS 4.6 mg/dL 2.3-4.7 ALBUMIN 4.1 g/dL 3.4-5 EGFR (CKD-EPI 2020) 45.6 >60 Oct 28, 2023 09:39 AM [facility] CBC Specimen Type: BLOOD No comment entered. Ordering Provider: MABEL MURPHY Report Released Date/Time: Oct 28, 2023 09:22 AM Reporting Lab: [facility] [address] [facility] [address] Performing Lab: [facility] [address] [facility] [address] WBC 5.5 10*3/uL 3.6-11.2 RBC 5.42 10*6/uL 4.10-5.70 HGB 13.5 g/dL 13.1-16.8 HCT 43.5 38.2-48.4 MCV 80.3 fL 80.0-100.0 MCH 24.9 pg L 27.0-34.0 MCHC 31.0 g/dL L 33.0-36.0 PLT 176 10*3/uL 150-400 MPV 11.8 fL H 7.5-11.2 RDW 16.8 H 11.8-15.1 LYMPHOCYTES, AUTO % 28 MONOCYTES, AUTO % 9 NEUTROPHILS, AUTO % 58 EOSINOPHILS, AUTO % 4 BASOPHILS, AUTO % 1 LYMPHOCYTES, ABSOLUTE 1.55 10*3/uL 0.77-4.50 MONOCYTES, ABSOLUTE 0.52 10*3/uL 0.19-0.80 NEUTROPHILS, ABSOLUTE 3.19 10*3/uL 2.10-8.00 EOSINOPHILS, ABSOLUTE 0.20 10*3/uL 0.00-0.60 BASOPHILS, ABSOLUTE 0.03 10*3/uL 0.00-0.20 Vital Signs: All taken on the encounter date This section contains inpatient and outpatient Vital Signs collected on the date of the Encounter. Date/Time Temperature Pulse Blood Pressure Respiratory Rate SP02 Pain Height Weight Body Mass Index Source Sep 29, 2023 01:16 PM 165/75 [facility] Sep 29, 2023 01:14 PM 97.6 83 181/77 16 96 280.3 43 [facility] Social History: Smoking Status (Most current) and Tobacco Use (All prior to encounter date) This section includes the most current, and the historical, smoking and tobacco- related health factors from the [place] facility where the Encounter took place. Current Smoking Status This section includes the most current smoking, or tobacco-related health factor, from the [place] facility where the Encounter took place. Date/Time Current Smoking Status Comment Arnulfo chacko Jan 06, 2023 02:41 PM VA-TOBACCO NEVER USED [facility] Tobacco Use History This section includes a history of the smoking, or tobacco-related health factors, that were collected on or before the date of the Encounter. The data comes from the [place] facility where the Encounter took place. Date/Time Smoking Status/Tobacco Use Comment F acility Jul 06, 2019 01:16 AM ORYX ADMIT TOBACCO SCREEN NO [facility] Feb 16, 2019 10:39 PM ORYX ADMIT TOBACCO SCREEN NO [facility] Nov 20, 2015 11:29 AM CURRENT TOBACCO USER [facility] Nov 20, 2015 11:29 AM TOBACCO MEDS OFFER ED BUT DECLINED [facility] Dec 26, 2014 09:53 AM CURRENT TOBACCO USER [facility] Dec 26, 2014 09:53 AM TOBACCO MEDS OFFER ED BUT DECLINED [facility] Advance Directives: All historical and current Section Date Range: From patient's date of to the date document was created. This section includes ALL of a patient's completed or amended [place] Advance and Rescinded Directives. The entries below indicate that a directive exists for the patient, but an actual copy is not included with this document. The data comes from all [place] facilities. Date Advance Directives Provider Source Jul 06, 2019 ADVANCE DIRECTIVE DISCUSSION JJ REZA [facility] Encounter Notes: All associated encounter notes This section contains the clinical notes associated to the Encounter. Date/Time Encounter Note(s) Provider Source Sep 29, 2023 01:43 PM PULMONARY OUTPATIE NT NOTE: LOCAL TITLE: PULMONARY OUTPATIENT FOLLOW UP ST STANDARD TITLE: PULMONARY OUTPATIENT NOTE DATE OF NOTE: SEP 29, 2023@13:43 ENTRY DATE: SEP 29, 2023@13:43:24 AUTHOR: BIANCA RIVERA EXP COSIGNER: URGENCY: STATUS: COMPLETED PULMONARY OUTPATIENT FOLLOW UP STL Has ADDENDA 62 year old MALE for Pulmonary Clinic follow up visit on 09/29/23 14:00. CHIEF COMPLAINT 2 month follow up primarily for asthma, chronic rhinitis, lack of exercise, obesity. 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 Mr. Mcclelland reports better [id number] now with warm wearther + high humidity than cherelle weather. He denies PND, rhinitis or allergy symptoms. He is using Flonase OTC as needed for rhinitis and nasal congestion. He reports rare wheezing now. He denies night sweat and nocturnal symptoms. He denies exacerbationor URI since last visit. SOCIAL HISTORY: Marital status: Served in was in [employer], he sis a spouse Tobacco: hx of 40 years x 2-3 ppd, quit 2015, no relapse. ETOH: denies Occupation: have a cat, doesn't work REVIEW OF SYSTEMS: APPETITE...Good WEIGHT.....Stable SLEEP......no problem on CPAP Constitutional...........Neg ative for THIRST/FEVER/CHILLS/NIGHT SWEATS. Eyes.....................Neg ative for BLURRED VISION/VISUAL CHANGES. Ears/Nose/Mouth/Throat...Neg ative for HEARING CHANGES/SINUS CONGESTION, OR SORE THROAT. Cardiovascular...........Neg ative for CHEST PAIN/PALPITATIONS. Respiratory..............Neg ative for COUGH/WHEEZING. Gastrointestinal.........Neg ative for DIARRHEA/CONSTIPATION/NAUSEA /VOMITING/ABDOMINAL PAIN/MELENA Genitourinary............Neg ative for DYSURIA/HESITANCY/URGENCY/IN CONTINENCE. Muscular.................Neg ative for CHANGES STRENGTH/JOINT PAIN, OR SWELLING. Integumentary............Neg ative for RASH/HIVES/BRUISING/DISCOLOR ATION. Neurological.............Neg ative for LOC/LIGHTHEADEDNESS/DIZZINES S/FOCAL WEAKNESS,OR PARESTHESIA Endocrine................Neg ative for GOITER/LETHARGY/HEAT - COLD INTOLERANCE. Hematologic/Lymphatic....Neg ative for PALLOR/SWELLING. Allergies/Immune.........Neg ative FOR CHANGE. Psychological.Negative for DEPRESSION/ANXIETY/MOOD CHANGES. PAST PULMONARY/MEDICAL HISTORY EXACERBATION: 03/20/2023 PREDNISONE 05/2023 + Prednisone 06/2023 + Prednisone 1) Daily headache (SNOMED CT [id number]) 2) Benign essential hypertension 3) Type 2 diabetes mellitus 4) Asthma 5) Hyperlipidemia 6) Polyp of colon 7) Vitamin D Deficiency ([facility] [id number]) 8) Obstructive Sleep Apnea Syndrome ([facility] [id number]) 9) CHF - Congestive Heart Failure ([facility] [id number]) 10) Obesity ([facility] [id number]) 11) Gastroesophageal reflux disease 12) Chronic kidney disease stage 3A 13) Gout 14) Chronic obstructive lung disease 15) Asthma IM - IMMUNIZATIONS ADMINISTERED Immunization Series Date Facility Reaction Info COVID-19 (MODERNA), MRNA, LNP-S,* 1 05/21/2022 [facility] COVID-19 (MODERNA), MRNA, LNP-S,* 4 12/06/2021 [facility] <C> COVID-19 (MODERNA), MRNA, LNP-S,* 3 05/02/2021 [facility] <C> COVID-19 (MODERNA), MRNA, LNP-S,* 2 07/15/2020 [facility] <C> COVID-19 (MODERNA), MRNA, LNP-S,* 1 06/17/2020 [facility] <C> INFLUENZA, SPLIT VIRUS, QUADRIVA* 01/07/2023 [facility] INFLUENZA, SPLIT VIRUS, QUADRIVA* 01/13/2020 [facility] INFLUENZA, SPLIT VIRUS, QUADRIVA* 02/24/2019 [facility] INFLUENZA, UNSPECIFIED FORMULATI* No Site INFLUENZA, UNSPECIFIED FORMULATI* Per pt martini* <C> PNEUMOCOCCAL CONJUGATE PCV 13 C 12/27/2020 [facility] PNEUMOCOCCAL POLYSACCHARIDE PPV23 C 12/06/2021 [facility] TDAP 06/27/2017 [facility]* <C> ZOSTER RECOMBINANT 2 12/06/2021 [facility] ZOSTER RECOMBINANT 1 12/27/2020 [facility] CONTRAINDICATED No data available REFUSED ======= Immunization Date Facility Info COVID-19 (MODERNA), MRNA, LNP-S,* 07/08/2023 [facility] <I> ACTIVE OUTPATIENT MEDICATIONS Active Outpatient Medications (including Supplies): Active Outpatient Medications Status 1) ALLOPURINOL 300MG TAB TAKE ONE TABLET BY MOUTH ONCE A ACTIVE DAY TAKE WITH PLENTY OF WATER. 2) ATORVASTATIN CALCIUM 80MG TAB TAKE ONE-HALF TABLET BY ACTIVE MOUTH EVERY EVENING FOR CHOLESTEROL. REPORT ANY UNEXPLAINED MUSCLE PAIN/WEAKNESS TO PROVIDER. 3) CARVEDILOL 12.5MG TAB TAKE ONE-HALF TABLET BY MOUTH ACTIVE TWICE A DAY TAKE WITH FOOD. 4) CICLESONIDE 160MCG 60D ORAL INHL INHALE 1 PUFF ORAL ACTIVE INHALATION TWICE A DAY FOR ASTHMA 5) EMPAGLIFLOZIN 25MG TAB TAKE ONE-HALF TABLET BY MOUTH ACTIVE ONCE A DAY 6) HYDRALAZINE HCL 100MG TAB TAKE ONE TABLET BY MOUTH ACTIVE THREE TIMES A DAY FOR BLOOD PRESSURE 7) INSULIN,ASPART(EQV-NOVLG)100 UN/ML FLXPEN INJECT 16 ACTIVE UNITS UNDER THE SKIN BEFORE BREAKFAST AND INJECT 16 UNITS BEFORE LUNCH AND INJECT 16 UNITS BEFORE SUPPER FOR BLOOD SUGAR CONTROL. ADMINISTER 10 MINUTES BEFORE FOOD DIRECTED. REFRIGERATE UN-OPENED PENS. DISCARD CARTRIDGE 28 DAYS AFTER OPENING. 8) INSULIN,GLARGINE-YFGN 100UNIT/ML PEN 3ML INJECT 50 ACTIVE UNITS UNDER THE SKIN ONCE A DAY FOR BLOOD SUGAR CONTROL. ADMINISTER AT SAME TIME EACH DAY DIRECTED. DISCARD ANY OPEN CARTRIDGE AFTER 28 DAYS. 9) ISOSORBIDE DINITRATE 20MG ORAL TAB TAKE TWO TABLETS ACTIVE BY MOUTH THREE TIMES A DAY BEFORE MEALS FOR CHEST PAIN ALLOW 10 TO 12 HOURS BETWEEN NIGHT AND MORNING DOSE. 10) OLODATEROL/TIOTROP 2.5MCG/ACTUAT 60D INH INHALE 2 ACTIVE PUFFS ORAL INHALATION ONCE A DAY FOR ASTHMA ADMINISTER AT SAME TIME EACH DAY 11) SPIRONOLACTONE 25MG TAB TAKE ONE TABLET BY MOUTH ONCE ACTIVE A DAY 12) TOPIRAMATE 50MG TAB TAKE ONE TABLET BY MOUTH TWICE A ACTIVE DAY FOR MIGRAINE PROPHYLAXIS 13) TORSEMIDE 20MG TAB TAKE TWO TABLETS BY MOUTH TWICE A ACTIVE DAY FOR FLUID RETENTION (EDEMA) (TAKE IN MORNING AND AFTERNOON) 14) VALSARTAN 160MG TAB TAKE ONE TABLET BY MOUTH TWICE A ACTIVE DAY TO LOWER BLOOD PRESSURE Active Non-VA Medications Status 1) Non-VA ASPIRIN 81MG CHEW TAB 81MG BY MOUTH ONCE A DAY ACTIVE 15 Total Medications MEDICATION NOTES Alvesco 1 puffs BID Albuterol MDI not daily for SOB Albuterol nebulizer BID Stiolto 2 puffs daily Cetirizine OTC, doesn't use Singulair daily Famotidine BID, not sure if using ALLERGIES METFORMIN PHYSICAL EXAMINATION Vital Signs: Temperature: 97.6 F [36.4 C] (09/29/2023 13:14) Blood Pressure: 165/75 (09/29/2023 13:16) Pulse: 83 (09/29/2023 13:14) Respirations: 16 (09/29/2023 13:14) Pain: 0 (07/08/2023 13:49) Patient Height:68 in [172.7 cm] (06/25/2023 09:32) Patient Weight:280.3 lb [127.14 kg] (09/29/2023 13:14) BMI: 42.7 O2 saturation: 96% (09/29/2023 13:14) on RA General: NAD, breathing comfortably at rest on room air, obese, well developed. HEENT: No trauma, normal conjunctiva, ears, nasal mucosa, sinus palpation, and pharynx, PERRL, Neck: Supple, trachea midline, no JVD, thyromegaly, adenopathy. Heart: S1S2, regular rhythm without murmur, rub, gallop, 2+ LE edema bilaterally, pulses 2+/rad Lungs: CTAB, no wheezing even with forced expiration. Abdomen: Bowel sounds present, soft, not distended, not tender, no hepatosplenomegaly. Extremities: Good pulses, no clubbing, cyanosis,2+ BLE edema. Skin: No rashes or lesions. MSK: normal gait, MESA Neurologic: AoX4, responds appropriately, MARTHA, CN II-XII grossly intact . SELECTED RESULTS REVIEWED No labs or impressions. IMPRESSION/RECOMMENDATIONS 1. Asthma, exacerbation 06/2023, relief of acute cough and wheezing after long (2 weeks) burst dose of Prednisone. -- We discuss his respiratory problem and our approach to management. -- Continue Alvesco and Stolto. -- May use Alvesco TID if needed. -- Continue Singulair. -- Agreed to see Dr. Ann for biologics and than continue in my clinic. 2. Chronic rhinitis, stable now. -- Continue Nasacort and Cetirizine OTC. 3. Tobacco abuse, hx of heavy smoking, quit 3 years ago. -- Congratulated on remaining tobacco free. 4. Immunization. UTD. COVID-19 (MODERNA) 1 05/21/2022 COVID-19 (MODERNA) 4 12/06/2021 COVID-19 (MODERNA) 3 05/02/2021 COVID-19 (MODERNA) 2 07/15/2020 COVID-19 (MODERNA) 1 06/17/2020 INFLUENZA, INJECTABLE, QUADRIVAL* 01/07/2023 PCV 13 C 12/27/2020 TDAP 06/27/2017 -- Encouraged annual influenza vaccination. 5.LITTLE, stable. -- Encourage use CPAP every night. 6.Obesity, stable. -- Weight loss encouraged -- Discuss low calories, lo salt diet -- Encourage daily physical activity as tolerated 7. GERD/heartburn, no sx. RTC in [address] Ann and than with me. Plan of care has been discussed with who verbalizes understanding and is in agreement with the plan of care. Vet was advised to call or go to the nearest health facility if any worsening of respiratory symptoms like Chest pain, hemoptysis or SOB. Patient was instructed to keep all scheduled appointments and contact nurse practitioner if any additional problems occur after this appointment. OUTSIDE SALES ASSOCIATE Azeem Lilly - noted 2+ BLE today in clinic. Patient requested compression stokings. Please assist. Thank you. /darwin/ CHAN العلي PULMONARY ANP Signed: 09/29/2023 17:55 Receipt Acknowledged By: 09/30/2023 06:54 /darwin/ Shell Lilly DNP, APRN, GARETH-Terry Primary Care Nurse Practitioner 10/02/2023 17:06 /darwin/ JF BOWERS MD, MPH Interventional Pulmonology 09/30/2023 ADDENDUM STATUS: COMPLETED Compression stockings have been ordered. Thank you! /halle Lilly DNP, APRN, PICKLER HELPER-C Primary Care Nurse Practitioner Signed: 09/30/2023 06:55 BIANCA RIVERA [facility]
--- OUTSIDE RECORDS SUMMARY | 2024-04-20 04:56 | XMS_ITS ---
Author Name [facility] [place] Organization [facility] [place] Address [address] [place] [address] Care Team Providers Care Leather Belt Shaper Name Role Phone SHAMA LILLY Primary Care [...] Nichols's Name Patient's Relationship to Policy Nichols [facility] Oct 29, 2012 Dec 27, 2026 [facility] [id number] [phone] ALEC MORATAYA PATIENT OPTUM [facility] Oct 29, 2012 Dec 27, 2026 [facility] [id number] 54 ALEC MORATAYA PATIENT Selected Encounter This section includes the information on record at [place] for the Encounter. Date/Time Encounter Type Encounter Description Reason Pro vider Source Jul 09, 2023 12:36 PM Outpatient Encounter TELEPHONE PRIMARY CARE IHE Encounter Template Text not used by [place] Plan of Treatment: Future Appointments (+ 6 [...] 20 appointments. The data comes from all [facility]. Appointment Date/Time Appointment Type Appointme nt Facility Name Jul 30, 2023 10:30 AM AMBULATORY - MEDICINE [facility] Sep 29, 2023 02:00 PM AMBULATORY - MEDICINE [facility] Oct 28, 2023 09:00 AM AMBULATORY - MEDICINE [facility] Dec 19, 2023 01:40 PM AMBULATORY - MEDICINE [facility] Dec 23, 2023 12:30 PM AMBULATORY MEDICINE [facility] Active, Pending, and Scheduled Orders This section includes a listing of several types of active, pending, and scheduled orders, including clinic medications orders, diagnostic test orders, procedure orders and consult orders; where the start date of the order is 45 days before the date of the Encounter or 45 days after the date of theEncounter. The data comes from all [facility]. Test Date/Time Test Type Test Details Facility Name Jul 14, 2023 12:00 AM Laboratory - Chemi stry Order CBC BLOOD [facility] Jul 14, 2023 12:00 AM Laboratory - Chemi stry Order RENAL PANEL GREEN LI/HEP BLD/PLAS PLASMA [facility] Jul 14, 2023 12:00 AM Laboratory - Chemi stry Order VITAMIN D, 25-HYDROXY GOLD/RED SST SERUM SP [facility] Jul 14, 2023 12:00 AM Laboratory - Chemi stry Order PTH, INTACT (STL) RED/NO-GEL SERUM SP [facility] Jul 14, 2023 12:00 AM Laboratory - Chemi stry Order MICRAL/CREAT PROFILE (STL) URINE YELLOW [facility] Jul 14, 2023 12:00 AM Laboratory - Chemi stry Order HGA1C BLOOD [facility] Jul 14, 2023 12:00 AM Laboratory - Chemi stry Order URIC ACID GREEN LI/HEP BLD/PLAS PLASMA [facility] Lab Results: +/- 30 days of the encounter This section includes the Chemistry and Hematology Lab Results on record with [place] for the patient. Radiology Reports and Pathology Reports are provided separately, in subsequent sections. Lab Results This section contains the Chemistry/Hematology Results that were resulted 30 days before or 30 daysafter the date of the Encounter. Date/Time Source Result Type Result - Unit Interpretation Reference Range Comment Jun 25, 2023 10:55 AM [facility] CBC Specimen Type: BLOOD No comment entered. Ordering Provider: GINI RIVERA Report Released Date/Time: Jun 25, 2023 10:12 AM Reporting Lab: [facility] [address] [facility] [address] Performing Lab: [place] [address] [facility] [address] WBC 5.7 10*3/uL 3.6-11.2 RBC 5.00 10*6/uL [...] 10*3/uL 0.00-0.20 Jun 25, 2023 10:55 AM [facility] IMMUNOGLOBULIN E Specimen Type: SERUM Comment: Test Performed by Ariella Snyder, [facility], [address] [facility], [place], [place] Shmuel Michaels M.D., Ph.D., Director of Laboratories , [place] [id number] Ordering Provider: GINI RIVERA Report Released Date/Time: Jun 25, 2023 10:12 AM Reporting Lab: [facility] [address] [facility] [address] Performing Lab: [facility] [address] [facility] [address] IMMUNOGLOBULIN E 171 kU/L H <=114 Social History: Smoking Status (Most current) and Tobacco Use (All prior to encounter date) This section includes the most current, and the historical, smoking and tobacco- related health factors from the [place] facility where the Encounter took place. Current Smoking Status This section includes the most current smoking, or tobacco-related health factor, from the [place] facility where the Encounter took place. Date/Time Current Smoking Status Comment Facil ity Jan 06, 2023 02:41 PM VA-TOBACCO NEVER USED [facility] Tobacco Use History This section includes a history of the smoking, or tobacco-related health factors, that were collected on or before the date of the Encounter. The data comes from the [place] facility where the Encounter took place. Date/Time Smoking Status/Tobacco Use Comment F acility Jul 06, 2019 01:16 AM ORYX ADMIT TOBACCO SCREEN NO [facility] Feb 16, 2019 10:39 PM ORYX ADMIT TOBACCO SCREEN NO [facility] Nov 20, 2015 11:29 AM CURRENT TOBACCO USER [facility] Nov 20, 2015 11:29 AM TOBACCO MEDS OFFER ED BUT DECLINED [facility] Dec 26, 2014 09:53 AM CURRENT TOBACCO USER [facility] Dec 26, 2014 09:53 AM TOBACCO MEDS OFFER ED BUT DECLINED [facility] Advance Directives: All historical and current Section Date Range: From patient's date of to the date document was created. This section includes ALL of a patient's completed or amended [place] Advance and Rescinded Directives. The entries below indicate that a directive exists for the patient, but an actual copy is not included with this document. The data comes from all [place] facilities. Date Advance Directives Provider Source Jul 06, 2019 ADVANCE DIRECTIVE DISCUSSION JJ REZA [facility] Radiology Reports: +/- 30 days [...] the Encounter. The data comes from all [place] treatment facilities. Date/Time Radiology Report Provider Source Jun 25, 2023 11:04 AM CHEST X-RAY, 2 VIE WS: MORATAYA,JAHAIRA L [id number] -1960 M Ex Date: JUN 25, 2023@11:04 Req Phys: BIANCA RIVERA Loc: -PULMONARY DEMIDENKO (Req'g Img Loc: -MAIN RADIOLOGY SUITE Service: Unknown (Case [id number] COMPLETE) CHEST X-RAY, 2 VIEWS (RAD Detailed) CPT:39792 Reason for Study: cough Clinical History: asthma Report Status: Verified Date Reported: JUN 25, 2023 Date Verified: JUN 25, 2023 Hospice Director E-Sig:/ES/ADE BROWNE MD Report: Case #[id number]. Chest [...] ADE BROWNE MD, Staff Physician - Radiologist (Hospice Director) /ADE MORE [facility]
--- OUTSIDE RECORDS SUMMARY | 2024-04-20 04:56 | XMS_ITS | Encounter Summary ---
Author Name Department of [place] Organization [facility] [place] Address [address] [place] [address] Care Team Providers Care Glass Novelty Maker Name Role Phone SHAMA LILLY Primary Care [...] Nichols's Name Patient's Relationship to Policy Nichols [facility] Oct 29, 2012 Dec 27, 2026 [facility] [id number] [phone] ALEC MORATAYA PATIENT [facility] Oct 29, 2012 Dec 27, 2026 [facility] [id number] 54 ALEC MORATAYA PATIENT Selected Encounter This section includes the information on record at [place] for the Encounter. Date/Time Encounter Type Encounter Description Reason Provider Source Jul 01, 2023 01:33 PM Outpatient Encounter TELEPHONE PRIMARY CARE PAT GODWIN Encounter Template Text not used by [place] Plan of Treatment: Future Appointments (+ 6 [...] 20 appointments. The data comes from all [facility]. Appointment Date/Time Appointment Type Appointme nt Facility Name Jul 08, 2023 01:30 PM AMBULATORY - MEDICINE [facility] Jul 30, 2023 10:30 AM AMBULATORY - MEDICINE [facility] Sep 29, 2023 02:00 PM AMBULATORY - MEDICINE [facility] Oct 28, 2023 09:00 AM AMBULATORY - MEDICINE [facility] Dec 19, 2023 01:40 PM AMBULATORY - MEDICINE [facility] Dec 23, 2023 12:30 PM AMBULATORY MEDICINE [facility] Active, Pending, and Scheduled Orders This section includes a listing of several types of active, pending, and scheduled orders, including clinic medications orders, diagnostic test orders, procedure orders and consult orders; where the start date of the order is 45 days before the date of the Encounter or 45 days after the date of theEncounter. The data comes from all [facility]. Test Date/Time Test Type Test Details Facility Name Jul 14, 2023 12:00 AM Laboratory - Chemi stry Order RENAL PANEL GREEN LI/HEP BLD/PLAS PLASMA [facility] Jul 14, 2023 12:00 AM Laboratory - Chemi stry Order CBC BLOOD SP [facility] Jul 14, 2023 12:00 AM Laboratory - Chemi stry Order VITAMIN D, 25-HYDROXY GOLD/RED SST SERUM SP [facility] Jul 14, 2023 12:00 AM Laboratory - Chemi stry Order PTH, INTACT (STL) RED/NO-GEL SERUM SP [facility] Jul 14, 2023 12:00 AM Laboratory - Chemi stry Order MICRAL/CREAT PROFILE (STL) URINE YELLOW [facility] Jul 14, 2023 12:00 AM Laboratory - Chemi stry Order URIC ACID GREEN LI/HEP BLD/PLAS PLASMA [facility] Jul 14, 2023 12:00 AM Laboratory - Chemi stry Order HGA1C BLOOD SP [facility] Lab Results: +/- 30 days of the encounter This section includes the Chemistry and Hematology Lab Results on record with [place] for the patient. Radiology Reports and Pathology Reports are provided separately, in subsequent sections. Lab Results This section contains the Chemistry/Hematology Results that were resulted 30 days before or 30 daysafter the date of the Encounter. Date/Time Source Result Type Result - Unit Interpretation Reference Range Comment Jun 25, 2023 10:55 AM [facility] CBC Specimen Type: BLOOD No comment entered. Ordering Provider: GINI RIVERA Report Released Date/Time: Jun 25, 2023 10:12 AM Reporting Lab: [place] [address] [facility] [address] Performing Lab: [address] [address] WBC 5.7 10*3/uL 3.6-11.2 RBC 5.00 10*6/uL [...] 10*3/uL 0.00-0.20 Jun 25, 2023 10:55 AM [facility] IMMUNOGLOBULIN E Specimen Type: SERUM Comment: Test Performed by Ariella Snyder, [facility], [address] [place], [place] Shmuel Michaels M.D., Ph.D., Director of Laboratories , [place] [id number] Ordering Provider: GINI RIVERA Report Released Date/Time: Jun 25, 2023 10:12 AM Reporting Lab: [facility] [address] [facility] [address] Performing Lab: [facility] [address] [facility] IMMUNOGLOBULIN E 171 kU/L H <=114 Social History: Smoking Status (Most current) and Tobacco Use (All prior to encounter date) This section includes the most current, and the historical, smoking and tobacco- related health factors from the [place] facility where the Encounter took place. Current Smoking Status This section includes the most current smoking, or tobacco-related health factor, from the [place] facility where the Encounter took place. Date/Time Current Smoking Status Comment Facil ity Jan 06, 2023 02:41 PM [place]-TOBACCO NEVER USED [facility] Tobacco Use History This section includes a history of the smoking, or tobacco-related health factors, that were collected on or before the date of the Encounter. The data comes from the [place] facility where the Encounter took place. Date/Time Smoking Status/Tobacco Use Comment F acility Jul 06, 2019 01:16 AM ORYX ADMIT TOBACCO SCREEN NO [facility] Feb 16, 2019 10:39 PM ORYX ADMIT TOBACCO SCREEN NO [facility] Nov 20, 2015 11:29 AM CURRENT TOBACCO USER [facility] Nov 20, 2015 11:29 AM TOBACCO MEDS OFFER ED BUT DECLINED [facility] Dec 26, 2014 09:53 AM CURRENT TOBACCO USER [facility] Dec 26, 2014 09:53 AM TOBACCO MEDS OFFER ED BUT DECLINED [facility] Advance Directives: All historical and current Section Date Range: From patient's date of to the date document was created. This section includes ALL of a patient's completed or amended [place] Advance and Rescinded Directives. The entries below indicate that a directive exists for the patient, but an actual copy is not included with this document. The data comes from all [place] facilities. Date Advance Directives Provider Source Jul 06, 2019 ADVANCE DIRECTIVE DISCUSSION JJ REZA [facility] Radiology Reports: +/- 30 [...] the Encounter. The data comes from all [place] treatment facilities. Date/Time Radiology Report Provider Source Jun 25, 2023 11:04 AM CHEST X-RAY, 2 VIE WS: JAHAIRA MORATAYA [id number] -1960 M Exm Date: JUN 25, 2023@11:04 Req Phys: BIACNA RIVERA Pat Loc: -PULMONARY DEMIDENKO (Req'g Img Loc: -MAIN RADIOLOGY SUITE Service: Unknown (Case [id number] COMPLETE) CHEST X-RAY, 2 VIEWS (RAD Detailed) CPT:63856 Reason for Study: cough Clinical History: asthma Report Status: Verified Date Reported: JUN 25, 2023 Date Verified: JUN 25, 2023 Diamond Setter Apprentice E-Sig:/ES/ADE BROWNE MD Report: Case #[id number]. Chest [...] ADE BROWNE MD, Staff Physician - Radiologist (Diamond Setter Apprentice) /ADE MORE [facility] Encounter Notes: All associated encounter notes This section contains the clinical notes associated to the Encounter. Date/Time Encounter Note(s) Provider Source Jul 01, 2023 01:33 PM NURSING NOTE: LOCAL TITLE: V15 PACT TELEPHONE CONTACT NOTE ST STANDARD TITLE: NURSING NOTE DATE OF NOTE: JUL 01, 2023@13:33 ENTRY DATE: JUL 01, 2023@13:33:46 AUTHOR: PAT GODWIN EXP COSIGNER: URGENCY: STATUS: COMPLETED Unable to contact: Left voice mail message instructing patient to return call. Outbound call to patient for: APPOINTMENT REMINDER /es/ PAT GODWIN LPN LICENSED PRACITCAL NURSE Signed: 07/01/2023 13:34 PAT GODWIN [facility]
--- OUTSIDE RECORDS SUMMARY | 2024-04-20 04:56 | XMS_ITS | Encounter Summary ---
Author Name [place] Address [address] [place] [address] Care Team Providers Care Airline Mechanic Name Role Phone SHAMA LILLY Primary Care [...] Nichols's Name Patient's Relationship to Policy Nichols [facility] Oct 29, 2012 Dec 27, 2026 [facility] [id number] [phone] ALEC MCCLELLAND PATIENT OPTUM RX [facility] Oct 29, 2012 Dec 27, 2026 [facility] [id number] 54 ALEC MCCLELLAND PATIENT Selected Encounter This section includes the information on record at [place] for the Encounter. Date/Time Encounter Type Encounter Description Reason Pro vider Source Jul 10, 2023 08:52 AM Outpatient Encounter ADMIN PAT ACTIVTIES (MASNONCT) [...] 20 appointments. The data comes from all [facility] Appointment Date/Time Appointment Type Appointme nt Facility Name Jul 30, 2023 10:30 AM AMBULATORY - MEDICINE [facility] Sep 29, 2023 02:00 PM AMBULATORY - MEDICINE [facility] Oct 28, 2023 09:00 AM AMBULATORY - MEDICINE [facility] Dec 19, 2023 01:40 PM AMBULATORY - MEDICINE [facility] Dec 23, 2023 12:30 PM AMBULATORY MEDICINE [facility] Active, Pending, and Scheduled Orders This section includes a listing of several types of active, pending, and scheduled orders, including clinic medications orders, diagnostic test orders, procedure orders and consult orders; where the start date of the order is 45 days before the date of the Encounter or 45 days after the date of theEncounter. The data comes from all [facility] [address] [facility]. Test Date/Time Test Type Test Details Facility Name Jul 14, 2023 12:00 AM Laboratory - Chemi stry Order CBC BLOOD [facility] Jul 14, 2023 12:00 AM Laboratory - Chemi stry Order RENAL PANEL GREEN LI/HEP BLD/PLAS PLASMA [facility] Jul 14, 2023 12:00 AM Laboratory - Chemi stry Order VITAMIN D, 25-HYDROXY GOLD/RED SST SERUM SP [facility] Jul 14, 2023 12:00 AM Laboratory - Chemi stry Order PTH, INTACT (STL) RED/NO-GEL SERUM SP [facility] Jul 14, 2023 12:00 AM Laboratory - Chemi stry Order MICRAL/CREAT PROFILE (STL) URINE YELLOW [facility] Jul 14, 2023 12:00 AM Laboratory - Chemi stry Order URIC ACID GREEN LI/HEP BLD/PLAS PLASMA [facility] Jul 14, 2023 12:00 AM Laboratory - Chemi stry Order HGA1C BLOOD SP [facility] Lab Results: +/- 30 days of the encounter This section includes the Chemistry and Hematology Lab Results on record with [place] for the patient. Radiology Reports and Pathology Reports are provided separately, in subsequent sections. Lab Results This section contains the Chemistry/Hematology Results that were resulted 30 days before or 30 daysafter the date of the Encounter. Date/Time Source Result Type Result - Unit Interpretation Reference Range Comment Jun 25, 2023 10:55 AM [facility] CBC Specimen Type: BLOOD No comment entered. Ordering Provider: GINI RIVERA Report Released Date/Time: Jun 25, 2023 10:12 AM Reporting Lab: [place] [id number] [facility] [address] Performing Lab: [address] [address] WBC 5.7 10*3/uL 3.6-11.2 RBC 5.00 10*6/uL [...] 10*3/uL 0.00-0.20 Jun 25, 2023 10:55 AM [facility] IMMUNOGLOBULIN E Specimen Type: SERUM Comment: Test Performed by [facility], [facility], [address] [place], [place] Shmuel Michaels M.D., Ph.D., Director of Laboratories , [facility] [id number] Ordering Provider: GINI RIVERA Report Released Date/Time: Jun 25, 2023 10:12 AM Reporting Lab: [facility] [address] [facility] [address] Performing Lab: [facility] [address] [facility] IMMUNOGLOBULIN E 171 kU/L H <=114 Social [...] 2023 02:41 PM VA-TOBACCO NEVER USED [facility] Tobacco Use History This section includes a history of the smoking, or tobacco-related health factors, that were collected on or before the date of the Encounter. The data comes from the [place] facility where the Encounter took place. Date/Time Smoking Status/Tobacco Use Comment F acility Jul 06, 2019 01:16 AM ORYX ADMIT TOBACCO SCREEN NO [facility] Feb 16, 2019 10:39 PM ORYX ADMIT TOBACCO SCREEN NO [facility] Nov 20, 2015 11:29 AM CURRENT TOBACCO USER [facility] Nov 20, 2015 11:29 AM TOBACCO MEDS OFFER ED BUT DECLINED [facility] Dec 26, 2014 09:53 AM CURRENT TOBACCO USER [facility] Dec 26, 2014 09:53 AM TOBACCO MEDS OFFER ED BUT DECLINED [facility] Advance Directives: All historical and current [...] ADVANCE DIRECTIVE DISCUSSION JJ REZA [facility] Radiology Reports: +/- 30 days [...] the Encounter. The data comes from all [place] treatment facilities. Date/Time Radiology Report Provider Source Jun 25, 2023 11:04 AM CHEST X-RAY, 2 VIE WS: JAHAIRA MCCLELLAND [id number] -1960 M Exm Date: JUN 25, 2023@11:04 Req Phys: BIANCA RIVERA Pat Loc: -PULMONARY DEMIDENKO (Req'g Img Loc: -MAIN RADIOLOGY SUITE Service: Unknown (Case [id number] COMPLETE) CHEST X-RAY, 2 VIEWS (RAD Detailed) CPT:33285 Reason for Study: cough Clinical History: asthma Report Status: Verified Date Reported: JUN 25, 2023 Date Verified: JUN 25, 2023 Computer Analyst E-Sig:/ES/ADE BROWNE MD Report: Case #[id number]. Chest [...] ADE BROWNE MD, Staff Physician - Radiologist (Computer Analyst) /ADE MORE [facility] Encounter Notes: All associated encounter notes This section contains the clinical notes associated to the Encounter. Date/Time Encounter Note(s) Provider Source Jul 10, 2023 08:52 AM PHYSICIAN LETTERS: LOCAL TITLE: NO CONTACT LETTER STL STANDARD TITLE: PHYSICIAN LETTERS DATE OF NOTE: JUL 10, 2023@08:52 ENTRY DATE: JUL 10, 2023@08:52:43 AUTHOR: NILAY ACOSTA COSIGNER: URGENCY: STATUS: COMPLETED [facility] [address] [place] [address] JUL 10, 2023 JAHAIRA MCCLELLAND [address] [place] [address] Dear Jahaira Mcclelland, Thank you for choosing the [facility] as your primary choice for health care. As a partner in your health care, we are attempting to contact you because we have been unsuccessful in reaching you by phone to schedule your clinic appointment. Please call us at [phone], extension [phone] to speak to us regarding making an appointment in the [facility]. Your good health is important to [...] the clinic to inquire about scheduling. Sincerely, NILAY ACOSTA ADVANCED JACKER JAHAIRA MCCLELLAND AMANDA A [facility]
--- OUTSIDE RECORDS SUMMARY | 2024-04-20 04:56 | XMS_ITS | Encounter Summary ---
Author Name [facility] [place] Address [address] [place] [address] Care Team Providers Care Steward Dishwasher Name Role Phone SHAMA LILLY Primary Care [...] Nichols's Name Patient's Relationship to Policy Nichols [facility] Oct 29, 2012 Dec 27, 2026 [facility] [id number] [phone] MCCLELLANDALEC PATIENT OPTUM RX [facility] Oct 29, 2012 Dec 27, 2026 [facility] [id number] 54 ALEC MCCLELLAND PATIENT Selected Encounter This section includes the information on record at [place] for the Encounter. Date/Time Encounter Type Encounter Description Reason Provider Source Jul 30, 2023 10:30 AM OFFICE O/P EST MOD 30 MIN PULMONARY/CHEST ICD-10-CM J45.998 Other asthma YURY RIVERA Encounter Template Text not used by [place] Assessments - Encounter Diagnoses This section includes the primary and secondary diagnoses documented for the Encounter. Date/Time Primary/Secondary Diagnosis Diagnosis Name Provider Source Jul 30, 2023 05:12 PM PRIMARY Other asthma GINI RIVERA [facility] Jul 30, 2023 05:12 PM SECONDARY Allergic rhinitis, unspecified GINI RIVERA [facility] Jul 30, 2023 05:12 PM SECONDARY Chronic obstructive pulmonary disease, unspecified GINI RIVERA [facility] Jul 30, 2023 05:12 PM SECONDARY Obesity, unspecified GINI RIVERA [facility] Jul 30, 2023 05:12 PM SECONDARY Obstructive sleep apnea (adult) (pediatric) [facility] Plan of Treatment: Future Appointments (+ 6 months) and Future Tests (+/- 45 days) The Plan of Treatment section includes future care activities for the patient from [facility] [place] [facility]. This section includes future appointments and future orders which are active, pending or scheduled. Future Appointments This section includes appointments that were scheduled to occur 6 months from the date of the Encounter, up to a maximum of 20 appointments. The data comes from all [facility]. Appointment Date/Time Appointment Type Appointme nt Facility Name Sep 29, 2023 02:00 PM AMBULATORY - MEDICINE [facility] Oct 28, 2023 09:00 AM AMBULATORY - MEDICINE [facility] Dec 19, 2023 01:40 PM AMBULATORY - MEDICINE [facility] Dec 23, 2023 12:30 PM AMBULATORY - MEDICINE [facility] Active, Pending, and Scheduled Orders This section [...] - Chemi stry Order CBC BLOOD SP [facility] Jul 14, 2023 12:00 AM Laboratory - Chemi stry Order RENAL PANEL GREEN LI/HEP BLD/PLAS PLASMA SP [facility] Jul 14, 2023 12:00 AM Laboratory - Chemi stry Order VITAMIN D, 25-HYDROXY GOLD/RED SST SERUM SP [facility] Jul 14, 2023 12:00 AM Laboratory - Chemi stry Order PTH, INTACT (STL) RED/NO-GEL SERUM SP [facility] Jul 14, 2023 12:00 AM Laboratory - Chemi stry Order MICRAL/CREAT PROFILE (STL) URINE YELLOW SP [facility] Jul 14, 2023 12:00 AM Laboratory - Chemi stry Order HGA1C BLOOD SP [facility] Jul 14, 2023 12:00 AM Laboratory - Chemi stry Order URIC ACID GREEN LI/HEP BLD/PLAS PLASMA SP [facility] Vital Signs: All taken on the encounter date This section contains inpatient and outpatient Vital Signs collected on the date of the Encounter. Date/Time Temperature Pulse Blood Pressure Respiratory Rate SP02 Pain Height Weight Body Mass Index Source Jul 30, 2023 10:26 AM 98.3 76 152/84 18 94 282.2 43 [facility] Social History: Smoking Status (Most current) and Tobacco Use (All prior to encounter date) This section includes the most current, and the historical, smoking and tobacco- related health factors from the [place] facility where the Encounter took place. Current Smoking Status This section includes the most current smoking, or tobacco-related health factor, from the [place] facility where the Encounter took place. Date/Time Current Smoking Status Comment Arnulfo ity Jan 06, 2023 02:41 PM VA-TOBACCO NEVER USED [facility] Tobacco Use History This section includes a history of the smoking, or tobacco-related health factors, that were collected on or before the date of the Encounter. The data comes from the [place] facility where the Encounter took place. Date/Time Smoking Status/Tobacco Use Comment F acility Jul 06, 2019 01:16 AM ORYX ADMIT TOBACCO SCREEN NO [facility] Feb 16, 2019 10:39 PM ORYX ADMIT TOBACCO SCREEN NO [facility] Nov 20, 2015 11:29 AM CURRENT TOBACCO USER [facility] Nov 20, 2015 11:29 AM TOBACCO MEDS OFFER ED BUT DECLINED [facility] Dec 26, 2014 09:53 AM CURRENT TOBACCO USER [facility] Dec 26, 2014 09:53 AM TOBACCO MEDS OFFER ED BUT DECLINED [facility] Advance Directives: All historical and current Section Date Range: From patient's date of to the date document was created. This section includes ALL of a patient's completed or amended [place] Advance and Rescinded Directives. The entries below indicate that a directive exists for the patient, but an actual copy is not included with this document. The data comes from all [place] facilities. Date Advance Directives Provider Source Jul 06, 2019 ADVANCE DIRECTIVE DISCUSSION JJ REZA [facility] Encounter Notes: All associated encounter notes This section contains the clinical notes associated to the Encounter. Date/Time Encounter Note(s) Provider Source Jul 30, 2023 10:27 AM PULMONARY OUTPATIE NT NOTE: LOCAL TITLE: PULMONARY OUTPATIENT FOLLOW UP [facility] STANDARD TITLE: PULMONARY OUTPATIENT NOTE DATE OF NOTE: JUL 30, 2023@10:27 ENTRY DATE: JUL 30, 2023@10:27:43 AUTHOR: BIANCA RIVERA COSIGNER: URGENCY: STATUS: COMPLETED 62 year old MALE for Pulmonary Clinic follow up visit on 07/30/23 10:30. CHIEF COMPLAINT 1 month follow up primarily for asthma, recent and frequent exacerbation. HISTORY The patient is a very pleasant [...] 1.3-1.7, h/o prostate abscess. Mr. Mcclelland reports slighytly improved cough, stable dyspnea with moderate exertion. He denies shortness of breath at rest, nocturnal symptoms, night sweats. He reports dyspnea after walking ~ 75 feet, stable. He took last day of Prednisone dose. He denies fever/chill, other sx of URI. He reports daily but not persistent cough dry or productive of small amount of pepe sputum. He gained weight. He is planning to exercise. SOCIAL HISTORY: Marital status: Served in was in [employer], he sis a spouse Tobacco: hx of 40 years x 2-3 ppd, quit 2016, no relapse. ETOH: denies Occupation: have a cat, doesn't work REVIEW OF SYSTEMS: APPETITE...Good WEIGHT.....Stable SLEEP......no problem Constitutional...........Neg ative for THIRST/FEVER/CHILLS/NIGHT SWEATS. Eyes.....................Neg ative [...] + Prednisone 1) Daily headache (SNOMED CT [id number]) 2) Benign essential hypertension 3) Type 2 diabetes mellitus 4) Asthma 5) Hyperlipidemia 6) Polyp of colon 7) Vitamin D Deficiency ([facility] [id number]) 8) Obstructive Sleep Apnea Syndrome ([facility] [id number]) 9) CHF - Congestive Heart Failure ([facility] [id number]) 10) Obesity ([facility] [id number]) 11) Gastroesophageal reflux disease 12) Chronic kidney [...] LNP-S,* 1 06/17/2020 [facility] <C> INFLUENZA, INJECTABLE, QUADRIVAL* 01/07/2023 [facility] INFLUENZA, INJECTABLE, QUADRIVAL* 01/13/2020 [facility] INFLUENZA, INJECTABLE, QUADRIVAL* 02/24/2019 [facility] INFLUENZA, UNSPECIFIED FORMULATI* No Site INFLUENZA, UNSPECIFIED FORMULATI* Per pt martini* <C> PNEUMOCOCCAL CONJUGATE PCV 13 C 12/27/2020 [facility] PNEUMOCOCCAL POLYSACCHARIDE PPV23 C 12/06/2021 [facility] TDAP 06/27/2017 [facility]* <C> ZOSTER RECOMBINANT 2 12/06/2021 [facility] ZOSTER RECOMBINANT 1 12/27/2020 [facility] CONTRAINDICATED No data available REFUSED ======= Immunization Date Facility Info COVID-19 (MODERNA), MRNA, LNP-S,* 07/08/2023 [facility]* <I> ACTIVE OUTPATIENT MEDICATIONS Active Outpatient Medications (including Supplies): Active Outpatient Medications Status 1) ALBUTEROL 90MCG (CFC-F) 200D ORAL INHL INHALE 2 PUFFS ACTIVE BY ORAL INHALATION FOUR TIMES A DAY NEEDED SHAKE WELL. RINSE MOUTHPIECE FREQUENTLY TO PREVENT CLOGGING. 2) ALBUTEROL SO4 0.083% INHL 3ML INHALE 1 VIAL ACTIVE (2.5MG/3ML) BY NEBULIZATION EVERY 6 HOURS DIRECTED NEEDED FOR EXERCISE-INDUCED BRONCHOSPASM 3) ALLOPURINOL 300MG TAB TAKE ONE TABLET BY MOUTH ONCE A ACTIVE DAY TAKE WITH PLENTY OF WATER. 4) ATORVASTATIN CALCIUM 80MG TAB TAKE ONE-HALF TABLET BY ACTIVE MOUTH EVERY EVENING FOR CHOLESTEROL. REPORT ANY UNEXPLAINED MUSCLE PAIN/WEAKNESS TO PROVIDER. 5) CARVEDILOL 12.5MG TAB TAKE ONE-HALF TABLET BY MOUTH ACTIVE TWICE A DAY TAKE WITH FOOD. 6) CICLESONIDE 160MCG 60D ORAL INHL INHALE 1 PUFF ORAL ACTIVE INHALATION TWICE A DAY FOR ASTHMA 7) EMPAGLIFLOZIN 25MG TAB TAKE ONE-HALF TABLET BY MOUTH ACTIVE ONCE A DAY 8) HYDRALAZINE HCL 100MG TAB TAKE ONE [...] HOURS BETWEEN NIGHT AND MORNING DOSE. 12) MONTELUKAST NA 10MG TAB TAKE ONE TABLET BY MOUTH ACTIVE EVERY EVENING FOR ASTHMA 13) OLODATEROL/TIOTROP 2.5MCG/ACTUAT 60D INH INHALE 2 ACTIVE PUFFS ORAL INHALATION ONCE A DAY FOR ASTHMA ADMINISTER AT SAME TIME EACH DAY 14) OMEPRAZOLE 10MG EC CAP TAKE ONE CAPSULE BY MOUTH ONCE ACTIVE A DAY FOR GASTROESOPHAGEAL REFLUX DISEASE TAKE 30 MINUTES PRIOR TO FOOD. 15) SPIRONOLACTONE 25MG TAB TAKE ONE TABLET BY MOUTH ONCE ACTIVE A DAY 16) TOPIRAMATE 50MG TAB TAKE ONE TABLET BY MOUTH TWICE A ACTIVE DAY FOR MIGRAINE PROPHYLAXIS 17) TORSEMIDE 20MG TAB TAKE TWO TABLETS BY MOUTH TWICE A ACTIVE DAY FOR FLUID RETENTION (EDEMA) (TAKE IN MORNING AND AFTERNOON) 18) VALSARTAN 160MG TAB TAKE ONE TABLET BY MOUTH TWICE A ACTIVE DAY TO LOWER BLOOD PRESSURE Active Non-VA Medications Status 1) Non-VA ASPIRIN 81MG CHEW TAB 81MG BY MOUTH ONCE A DAY ACTIVE 19 Total Medications MEDICATION NOTES Alvesco 1 puffs BID Albuterol MDI 2 times daily for SOB Albuterol nebulizer rare Stiolto 2 puffs daily Albuterol nebulizer 2 times a day Cetirizine OTC, doesn't use Singulair daily Famotidine BID, not sure if using ALLERGIES METFORMIN PHYSICAL EXAMINATION Vital Signs: Temperature: 98.3 F [36.8 C] (07/30/2023 10:26) Blood Pressure: 152/84 (07/30/2023 10:26) Pulse: 76 (07/30/2023 10:26) Respirations: 18 (07/30/2023 10:26) Pain: 0 (07/08/2023 13:49) Patient Height:68 in [172.7 cm] (06/25/2023 09:32) Patient Weight:282.2 lb. [128.00 kg] (07/30/2023 10:26) BMI: 43.0 O2 saturation: 94% (07/30/2023 10:26) on RA General: NAD, breathing comfortably at rest on room air, obese, well developed. HEENT: No trauma, normal conjunctiva, ears, nasal mucosa, sinus palpation, and pharynx, PERRL, Neck: Supple, trachea midline, no JVD, thyromegaly, adenopathy. Heart: S1S2, regular rhythm without murmur, rub, gallop, no edema bilaterally, pulses 2+/rad Lungs: CTAB, no wheezing even with forced expiration. Abdomen: Bowel sounds present, soft, not distended, not tender, no hepatosplenomegaly. Extremities: Good pulses, no clubbing, cyanosis, edema. Skin: No rashes or lesions. MSK: normal gait, MESA Neurologic: AoX4, responds appropriately, MARTHA, CN II-XII grossly intact . SELECTED RESULTS REVIEWED No labs or impressions IMPRESSION/RECOMMENDATIONS 1. Asthma, exacerbation 06/2023, relief of acute cough and wheezing after long (2 weeks) burst dose of Prednisone. -- We discuss his respiratory problem and our approach to management. -- Continue Alvesco and Stolto. -- May use Alvesco TID if needed. -- Review labs: CBC, IgE- 171 ^. -- Continue Singulair. -- Agreed to consult Dr. Ann for biologics. 2. Chronic rhinitis, stable now. -- Continue Nasacort and Cetirizine OTC. 3. Tobacco abuse, hx of heavy smoking, quit 3 years ago. -- Congratulated on remaining tobacco free. 4. Immunization. [facility]. COVID-19 (MODERNA) 1 05/21/2022 COVID-19 (MODERNA) 4 [...] 7. GERD/heartburn, no sx. RTC in 2 mo. Plan of care has been discussed with who verbalizes understanding and is in agreement with the plan of care. Vet was advised to call or go to the nearest health facility if any worsening of respiratory symptoms like Chest pain, hemoptysis or SOB. Patient was instructed to keep all scheduled appointments and contact nurse practitioner if any additional problems occur after this appointment. /darwin/ CHAN العلي PULMONARY ANP Signed: 08/02/2023 21:25 Receipt Acknowledged By: 08/04/2023 11:09 /darwin/ JF BOWERS MD, MPH Interventional Pulmonology BIANCA RIVERA [facility]
--- OUTSIDE RECORDS SUMMARY | 2024-04-20 04:56 | XMS_ITS | Encounter Summary ---
Author Name [facility] [place] Address [address] [place] [address] Care Team Providers Care Jack Spooler Tender Name Role Phone SHAMA LILLY Primary [...] Nichols's Name Patient's Relationship to Policy Nichols [facility] Oct 29, 2012 Dec 27, 2026 [facility] [id number] [phone] ALEC MORATAYA PATIENT OPTUM RX [facility] Oct 29, 2012 Dec 27, 2026 [facility] [id number] 54 ALEC MORATAYA PATIENT Selected Encounter This section includes the information on record at [place] for the Encounter. Date/Time Encounter Type Encounter Description Reason Pro vider Source Jun 25, 2023 10:50 AM Outpatient Encounter ADMIN PAT ACTIVTIES (MASNONCT) IHE Encounter Template Text not used by [place] Plan of Treatment: Future Appointments (+ 6 [...] 20 appointments. The data comes from all [facility]. Appointment Date/Time Appointment Type Appointme nt Facility Name Jul 08, 2023 01:30 PM AMBULATORY MEDICINE [facility] Jul 30, 2023 10:30 AM AMBULATORY - MEDICINE [facility] Sep 29, 2023 02:00 PM AMBULATORY - MEDICINE [facility] Oct 28, 2023 09:00 AM AMBULATORY - MEDICINE [facility] Dec 19, 2023 01:40 PM AMBULATORY - MEDICINE [facility] Dec 23, 2023 12:30 PM AMBULATORY MEDICINE [facility] Active, Pending, and Scheduled Orders This section includes a listing of several types of active, pending, and scheduled orders, including clinic medications orders, diagnostic test orders, procedure orders and consult orders; where the start date of the order is 45 days before the date of the Encounter or 45 days after the date of theEncounter. The data comes from all [facility]. Test Date/Time Test Type Test Details Facility Name Jul 14, 2023 12:00 AM Laboratory - Chemi stry Order CBC BLOOD [facility] Jul 14, 2023 12:00 AM Laboratory - Chemi stry Order RENAL PANEL GREEN LI/HEP BLD/PLAS PLASMA SP [facility] Jul 14, 2023 12:00 AM Laboratory - Chemi stry Order VITAMIN D, 25-HYDROXY GOLD/RED SST SERUM SP [facility] Jul 14, 2023 12:00 AM Laboratory - Chemi stry Order PTH, INTACT (STL) RED/NO-GEL SERUM SP [facility] Jul 14, 2023 12:00 AM Laboratory - Chemi stry Order MICRAL/CREAT PROFILE (STL) URINE YELLOW [facility] Jul 14, 2023 12:00 AM Laboratory - Chemi stry Order HGA1C BLOOD [facility] Jul 14, 2023 12:00 AM Laboratory - Chemi stry Order URIC ACID GREEN LI/HEP BLD/PLAS PLASMA SP [facility] Lab Results: +/- 30 days of the encounter This section includes the Chemistry and Hematology Lab Results on record with [place] for the patient. Radiology Reports and Pathology Reports are provided separately, in subsequent sections. Lab Results This section contains the Chemistry/Hematology Results that were resulted 30 days before or 30 daysafter the date of the Encounter. Date/Time Source Result Type Result - Unit Interpretation Reference Range Comment Jun 25, 2023 10:55 AM [facility] CBC Specimen Type: BLOOD No comment entered. Ordering Provider: GINI RIVERA Report Released Date/Time: Jun 25, 2023 10:12 AM Reporting Lab: [facility] [address] [facility] [id number] Performing Lab: [place] [id number] [facility] [id number] WBC 5.7 10*3/uL 3.6-11.2 RBC 5.00 10*6/uL [...] 10*3/uL 0.00-0.20 Jun 25, 2023 10:55 AM [facility] IMMUNOGLOBULIN E Specimen Type: SERUM Comment: Test Performed by Ariella Snyder, [facility], [address] [address], [place] Shmuel Michaels M.D., Ph.D., Director of Laboratories , GREGWI [id number] Ordering Provider: GINI RIVERA Report Released Date/Time: Jun 25, 2023 10:12 AM Reporting Lab: [facility] [address] [facility] [address] Performing Lab: [facility] [address] [facility] IMMUNOGLOBULIN E 171 kU/L H <=114 Vital Signs: All taken on the encounter date This section contains inpatient and outpatient Vital Signs collected on the date of the Encounter. Date/Time Temperature Pulse Blood Pressure Respiratory Rate SP02 Pain Height Weight Body Mass Index Source Jun 25, 2023 09:32 AM 168/87 [facility] Jun 25, 2023 09:32 AM 89 176/89 22 96 4 68 277.1 42 [facility] Social History: Smoking Status (Most current) and Tobacco Use (All prior to encounter date) This section includes the most current, and the historical, smoking and tobacco- related health factors from the [place] facility where the Encounter took place. Current Smoking Status This section includes the most current smoking, or tobacco-related health factor, from the [place] facility where the Encounter took place. Date/Time Current Smoking Status Comment Arnulfo ity Jan 06, 2023 02:41 PM VA-TOBACCO NEVER USED [facility] Tobacco Use History This section includes a history of the smoking, or tobacco-related health factors, that were collected on or before the date of the Encounter. The data comes from the [place] facility where the Encounter took place. Date/Time Smoking Status/Tobacco Use Comment F acility Jul 06, 2019 01:16 AM ORYX ADMIT TOBACCO SCREEN NO [facility] Feb 16, 2019 10:39 PM ORYX ADMIT TOBACCO SCREEN NO [facility] Nov 20, 2015 11:29 AM CURRENT TOBACCO USER [facility] Nov 20, 2015 11:29 AM TOBACCO MEDS OFFER ED BUT DECLINED [facility] Dec 26, 2014 09:53 AM CURRENT TOBACCO USER [facility] Dec 26, 2014 09:53 AM TOBACCO MEDS OFFER ED BUT DECLINED [facility] Advance Directives: All historical and current Section Date Range: From patient's date of to the date document was created. This section includes ALL of a patient's completed or amended [place] Advance and Rescinded Directives. The entries below indicate that a directive exists for the patient, but an actual copy is not included with this document. The data comes from all [place] facilities. Date Advance Directives Provider Source Jul 06, 2019 ADVANCE DIRECTIVE DISCUSSION JJ REZA [facility] Radiology Reports: +/- 30 days of the [...] the Encounter. The data comes from all [place] treatment facilities. Date/Time Radiology Report Provider Source Jun 25, 2023 11:04 AM CHEST X-RAY, 2 VIE WS: JAHAIRA MORATAYA [id number] -1960 [facility] Date: JUN 25, 2023@11:04 Req Phys: BIACNA RIVERA Loc: -PULMONARY DEMIDENKO (Req'g Img Loc: -MAIN RADIOLOGY SUITE Service: Unknown (Case [id number] COMPLETE) CHEST X-RAY, 2 VIEWS (RAD Detailed) CPT:26394 Reason for Study: cough Clinical History: asthma Report Status: Verified Date Reported: JUN 25, 2023 Date Verified: JUN 25, 2023 Mobile Pet Groomer E-Sig:/ES/ADE BROWNE MD Report: Case #[id number]. Chest [...] ADE BROWNE MD, Staff Physician - Radiologist (Mobile Pet Groomer) /ADE MORE [facility] Encounter Notes: All associated encounter notes This section contains the clinical notes associated to the Encounter. Date/Time Encounter Note(s) Provider Source Jun 25, 2023 10:50 AM PHARMACY PROGRESS NOTE: LOCAL TITLE: PHARMACY GENERAL [facility] STANDARD TITLE: PHARMACY PROGRESS NOTE DATE OF NOTE: JUN 25, 2023@10:50 ENTRY DATE: JUN 25, 2023@10:50:30 AUTHOR: ROSALEE MCDOWELL EXP COSIGNER: URGENCY: STATUS: COMPLETED PHARMACY GENERAL ST Has ADDENDA Patient is requesting that the following prescription be renewed: 1) insulin aspart Alerting provider to patient's request. /halle Mcdowell PharmD Clinical Pharmacist Signed: 06/25/2023 10:51 Receipt Acknowledged By: 07/03/2023 11:55 /halle Lilly DNP, APRN, FNP-Terry Primary Care Nurse Practitioner 07/03/2023 ADDENDUM STATUS: COMPLETED The above medication has been renewed. This provider was notified today of this request. Thank you. /halle Lilly DNP, APRN, GARETH-C Primary Care Nurse Practitioner Signed: 07/03/2023 11:55 ROSALEE MCDOWELL [facility]
--- OUTSIDE RECORDS SUMMARY | 2024-04-20 04:56 | XMS_ITS | Encounter Summary ---
Author Name [facility] Organization [facility] Address [address] [place] [address] Care Team Providers Care Assisted Living Nursing Director Name Role Phone SHAMA LILLY Primary Care [...] Nichols's Name Patient's Relationship to Policy Nichols [facility] Oct 29, 2012 Dec 27, 2026 [facility] [id number] [phone] ALEC MORATAYA PATIENT [facility] Oct 29, 2012 Dec 27, 2026 [facility] [id number] ALEC MORATAYA PATIENT Selected Encounter This section includes the information on record at [facility] for the Encounter. Date/Time Encounter Type Encounter Description Reason Provider Source Aug 08, 2023 09:20 AM Outpatient Encounter PULMONARY/CHEST ICD-10-CM J45.909 Unspecified asthma, uncomplicated SUMINO,KAHARU CAJAL IHE Encounter Template Text not used by ID Assessments - Encounter Diagnoses This section includes the primary and secondary diagnoses documented for the Encounter. Date/Time Primary/Secondary Diagnosis Diagnosis Name Provider Source Aug 08, 2023 09:27 AM PRIMARY Unspecified asthma, uncomplicated SUMINO,BOARU CAJAL [facility] Plan of Treatment: Future Appointments (+ 6 months) and Future Tests (+/- 45 days) The Plan of Treatment section includes future care activities for the [facility] This section includes future appointments and future orders which are active, pending or scheduled. Future Appointments This section includes appointments that were scheduled to occur 6 months from the date of the Encounter, up to a maximum of 20 appointments. The data comes from all [facility]. Appointment Date/Time Appointment Type Appointme nt Facility Name Sep 29, 2023 02:00 PM AMBULATORY - MEDICINE [facility] Oct 28, 2023 09:00 AM AMBULATORY - MEDICINE [facility] Dec 19, 2023 01:40 PM AMBULATORY - MEDICINE [facility] Dec 23, 2023 12:30 PM AMBULATORY - MEDICINE [facility] Active, Pending, and Scheduled Orders This section includes a listing of several types of active, pending, and scheduled orders, including clinic medications orders, diagnostic test orders, procedure orders and consult orders; where the start date of the order is 45 days before the date of the Encounter or 45 days after the date of theEncounter. The data comes from all [facility]. Test Date/Time Test Type Test Details Facility Name Jul 14, 2023 12:00 AM Laboratory - Chemi stry Order CBC BLOOD [facility] Jul 14, 2023 12:00 AM Laboratory - Chemi stry Order RENAL PANEL GREEN LI/HEP BLD/PLAS PLASMA SP [facility] Jul 14, 2023 12:00 AM Laboratory - Chemi stry Order VITAMIN D, 25-HYDROXY GOLD/RED SST SERUM SP [facility] Jul 14, 2023 12:00 AM Laboratory - Chemi stry Order PTH, INTACT (STL) RED/NO-GEL SERUM SP [facility] Jul 14, 2023 12:00 AM Laboratory - Chemi stry Order MICRAL/CREAT PROFILE (STL) URINE YELLOW SP [facility] Jul 14, 2023 12:00 AM Laboratory - Chemi stry Order HGA1C BLOOD SP [facility] Jul 14, 2023 12:00 AM Laboratory - Chemi stry Order URIC ACID GREEN LI/HEP BLD/PLAS PLASMA SP [facility] Social History: Smoking Status (Most current) and Tobacco Use (All prior to encounter date) This section includes the most current, and the historical, smoking and tobacco- related health factors from the ID facility where the Encounter took place. Current Smoking Status This section includes the most current smoking, or tobacco-related health factor, from the ID facility where the Encounter took place. Date/Time Current Smoking Status Comment Facil ity Jan 06, 2023 02:41 PM VA-TOBACCO NEVER USED [facility] Tobacco Use History This section includes a history of the smoking, or tobacco-related health factors, that were collected on or before the date of the Encounter. The data comes from the ID facility where the Encounter took place. Date/Time Smoking Status/Tobacco Use Comment F acility Jul 06, 2019 01:16 AM ORYX ADMIT TOBACCO SCREEN NO [facility] Feb 16, 2019 10:39 PM ORYX ADMIT TOBACCO SCREEN NO [facility] Nov 20, 2015 11:29 AM CURRENT TOBACCO USER [facility] Nov 20, 2015 11:29 AM TOBACCO MEDS OFFER ED BUT DECLINED [facility] Dec 26, 2014 09:53 AM CURRENT TOBACCO USER [facility] Dec 26, 2014 09:53 AM TOBACCO MEDS OFFER ED BUT DECLINED [facility] Advance Directives: All historical and current Section Date Range: From patient's date of to the date document was created. This section includes ALL of a patient's completed or amended [facility] Advance and Rescinded Directives. The entries below indicate that a directive exists for the patient, but an actual copy is not included with this document. The data comes from all [facility]. Date Advance Directives Provider Source Jul 06, 2019 ADVANCE DIRECTIVE DISCUSSION JJ REZA [facility] Encounter Notes: All associated encounter notes This section contains the clinical notes associated to the Encounter. Date/Time Encounter Note(s) Provider Source Aug 08, 2023 09:20 AM CONSULT: LOCAL TITLE: E-CONSULT PULMONARY OUTPT [facility] STANDARD TITLE: CONSULT DATE OF NOTE: AUG 08, 2023@09:20 ENTRY DATE: AUG 08, 2023@09:20:20 AUTHOR: KEVON MARQUEZ EXP COSIGNER: URGENCY: STATUS: COMPLETED The reason for consult: uncontrolled asthma I have reviewed pertinent CPRS documentation in the electronic medical record for this patient. The recommendations/findings offered are the result of information from the requesting provider and a chart review only. Case discussed with [facility] [employer] and chart reviewed 62 y/o male with severe uncontrolled asthma. Biologics may be indicated Currently taking alvesco and stiolto Previously on Dulera Eos 250 06/2023, 310 11/2021 IgE 171 Diagnosis and/or Impression: I will see him for evaluation at least once and decide on the treatment. Then will send him back to [facility] 11 minutes to 20 minutes spent reviewing patient's medical records /darwin/ KEVON MARQUEZ MD Staff Physician - Pulmonary Signed: 08/08/2023 09:27 KEVON MARQUEZ [facility]
--- OUTSIDE RECORDS SUMMARY | 2024-04-20 04:56 | XMS_ITS | Encounter Summary ---
Author Name [facility] [facility] [place] [facility] [place] Address [address] [place] [address] Care Team Providers Care Pot Reliner Name Role Phone SHELL LILLY Primary Care [...] Nichols's Name Patient's Relationship to Policy Nichols [facility] Oct 29, 2012 Dec 27, 2026 [facility] [id number] [phone] MORATAYAAELC PATIENT [facility] Oct 29, 2012 Dec 27, 2026 [facility] [id number] [phone] ALEC MORATAYA PATIENT Selected Encounter This section includes the information on record at [place] for the Encounter. Date/Time Encounter Type Encounter Description Reason Provider Source Jul 08, 2023 01:30 PM OFFICE O/P EST MOD 30 MIN PRIMARY CARE/MEDICINE ICD-10-CM I50.9 Heart failure, unspecified SHELL LILLY Encounter Template Text not used by [place] Assessments - Encounter Diagnoses This section includes the primary and secondary diagnoses documented for the Encounter. Date/Time Primary/Secondary Diagnosis Diagnosis Name Provider Source Jul 09, 2023 12:07 PM PRIMARY Heart failure, unspecified SHELL LILLY JANICE [facility] Jul 09, 2023 12:07 PM SECONDARY Chronic kidney disease, stage 3a SHELL LILLY [facility] Jul 09, 2023 12:07 PM SECONDARY Chronic obstructive pulmonary disease, unspecified SHELL LILLY JANICE [facility] Jul 09, 2023 12:07 PM SECONDARY Essential (primary) hypertension SHELL LILLY [facility] Jul 09, 2023 12:07 PM SECONDARY Gastro-esophageal reflux disease without esophagitis SHELL LILLY JANICE [facility] Jul 09, 2023 12:07 PM SECONDARY Gout, unspecified SHELL LILLY [facility] Jul 09, 2023 12:07 PM SECONDARY Hyperlipidemia, unspecified SHELL LILLY JANICE [facility] Jul 09, 2023 12:07 PM SECONDARY Obesity, unspecified SHELL LILLY JANICE [facility] Jul 09, 2023 12:07 PM SECONDARY Obstructive sleep apnea (adult) (pediatric) SHELL LILLY JANICE [facility] Jul 09, 2023 12:07 PM SECONDARY Other asthma SHELL LILLY [facility] Jul 09, 2023 12:07 PM SECONDARY Polyp of colon SHELL LILLY JANICE [facility] Jul 09, 2023 12:07 PM SECONDARY Type 2 diabetes mellitus with unspecified complications SHELL LILLY JANICE [facility] Jul 09, 2023 12:07 PM SECONDARY Type 2 diabetes mellitus without complications SHELL LILLY JANICE [facility] Jul 09, 2023 12:07 PM SECONDARY Unspecified asthma, uncomplicated SHELL LILLY [facility] Jul 09, 2023 12:07 PM SECONDARY Vitamin D deficiency, unspecified SHELL LILLY Philip [facility] Plan of Treatment: Future Appointments (+ 6 months) and Future Tests (+/- 45 days) The Plan of Treatment section includes future care activities for the patient from all [place] treatmentfacilities. This section includes future appointments and future orders which are active, pending or scheduled. Future Appointments This section includes appointments that were scheduled to occur 6 months from the date of the Encounter, up to a maximum of 20 appointments. The data comes from all [facility]. Appointment Date/Time Appointment Type Appointme nt Facility Name Jul 30, 2023 10:30 AM AMBULATORY - MEDICINE [facility] Sep 29, 2023 02:00 PM AMBULATORY - MEDICINE [facility] Oct 28, 2023 09:00 AM AMBULATORY - MEDICINE [facility] Dec 19, 2023 01:40 PM AMBULATORY - MEDICINE [facility] Dec 23, 2023 12:30 PM AMBULATORY - MEDICINE [facility] Active, Pending, and Scheduled Orders This section includes a listing of several types of active, pending, and scheduled orders, including clinic medications orders, diagnostic test orders, procedure orders and consult orders; where the start date of the order is 45 days before the date of the Encounter or 45 days after the date of theEncounter. The data comes from all [facility]. Test Date/Time Test Type Test Details Facility Name Jul 14, 2023 12:00 AM Laboratory - Chemi stry Order CBC BLOOD [facility] Jul 14, 2023 12:00 AM Laboratory - Chemi stry Order RENAL PANEL GREEN LI/HEP BLD/PLAS PLASMA [facility] Jul 14, 2023 12:00 AM Laboratory - Chemi stry Order VITAMIN D, 25-HYDROXY GOLD/RED SST SERUM SP [facility] Jul 14, 2023 12:00 AM Laboratory - Chemi stry Order PTH, INTACT (STL) RED/NO-GEL SERUM SP [facility] Jul 14, 2023 12:00 AM Laboratory - Chemi stry Order MICRAL/CREAT PROFILE (STL) URINE YELLOW [facility] Jul 14, 2023 12:00 AM Laboratory - Chemi stry Order URIC ACID GREEN LI/HEP BLD/PLAS PLASMA [facility] Jul 14, 2023 12:00 AM Laboratory - Chemi stry Order HGA1C BLOOD [facility] Lab Results: +/- 30 days of the encounter This section includes the Chemistry and Hematology Lab Results on record with [place] for the patient. Radiology Reports and Pathology Reports are provided separately, in subsequent sections. Lab Results This section contains the Chemistry/Hematology Results that were resulted 30 days before or 30 daysafter the date of the Encounter. Date/Time Source Result Type Result - Unit Interpretation Reference Range Comment Jun 25, 2023 10:55 AM [facility] CBC Specimen Type: BLOOD No comment entered. Ordering Provider: GINI RIVERA Report Released Date/Time: Jun 25, 2023 10:12 AM Reporting Lab: [facility] [address] [facility] [id number] Performing Lab: [facility] [address] [facility] [id number] WBC 5.7 10*3/uL 3.6-11.2 RBC 5.00 10*6/uL [...] 10*3/uL 0.00-0.20 Jun 25, 2023 10:55 AM [facility] IMMUNOGLOBULIN E Specimen Type: SERUM Comment: Test Performed by Ariella Snyder, [facility], [address] [place] [address] Shmuel Michaels M.D., Ph.D., Director of Laboratories , [facility] [id number] Ordering Provider: GINI RIVERA Report Released Date/Time: Jun 25, 2023 10:12 AM Reporting Lab: [facility] [address] [facility] [id number] Performing Lab: [facility] [id number] [facility] [address] IMMUNOGLOBULIN E 171 kU/L H <=114 Vital Signs: All taken on the encounter date This section contains inpatient and outpatient Vital Signs collected on the date of the Encounter. Date/Time Temperature Pulse Blood Pressure Respiratory Rate SP02 Pain Height Weight Body Mass Index Source Jul 08, 2023 02:48 PM 164/82 [facility] Jul 08, 2023 01:49 PM 192/68 [facility] Jul 08, 2023 01:49 PM 98.8 67 162/71 20 93 0 278 42 [facility] Social History: Smoking Status (Most current) and Tobacco Use (All prior to encounter date) This section includes the most current, and the historical, smoking and tobacco- related health factors from the [place] facility where the Encounter took place. Current Smoking Status This section includes the most current smoking, or tobacco-related health factor, from the [place] facility where the Encounter took place. Date/Time Current Smoking Status Comment Facil ity Jul 13, 2021 08:30 AM VA-TOBACCO FORMER USER [facility] Tobacco Use History This section includes a history of the smoking, or tobacco-related health factors, that were collected on or before the date of the Encounter. The data comes from the [place] facility where the Encounter took place. Date/Time Smoking Status/Tobacco Use Comment F acility Jul 13, 2021 08:30 AM VA-TOBACCO QUIT 1 TO < 5 YRS [facility] Jun 30, 2020 02:00 PM VA-TOBACCO FORMER USER [facility] Jun 30, 2020 02:00 PM VA-TOBACCO QUIT 15 YRS OR MORE [facility] May 24, 2020 08:30 AM VA-TOBACCO FORMER USER [facility] May 24, 2020 08:30 AM [place] QUIT 1 TO < 5 YRS [facility] May 07, 2019 11:29 AM TOBACCO OFFERED PT MEDS (PROVIDER) [facility] Advance Directives: All historical and current Section Date Range: From patient's date of to the date document was created. This section includes ALL of a patient's completed or amended [place] Advance and Rescinded Directives. The entries below indicate that a directive exists for the patient, but an actual copy is not included with this document. The data comes from all [place] facilities. Date Advance Directives Provider Source Jul 06, 2019 ADVANCE DIRECTIVE DISCUSSION JJ REZA [facility] Radiology Reports: +/- 30 days of [...] the Encounter. The data comes from all [place] treatment facilities. Date/Time Radiology Report Provider Source Jun 25, 2023 11:04 AM CHEST X-RAY, 2 VIE WS: JAHAIRA MORATAYA [id number] -[phone] M Exm Date: JUN 25, 2023@11:04 Req Phys: BIANCA RIVERA Loc: -PULMONARY DEMIDENKO (Req'g Img Loc: -MAIN RADIOLOGY SUITE Service: Unknown (Case [id number] COMPLETE) CHEST X-RAY, 2 VIEWS (RAD Detailed) CPT:18313 Reason for Study: cough Clinical History: asthma Report Status: Verified Date Reported: JUN 25, 2023 Date Verified: JUN 25, 2023 Advertising Agent E-Sig:/ES/ADE BROWNE MD Report: Case #[id number]. Chest [...] ADE BROWNE MD, Staff Physician - Radiologist (Advertising Agent) /ADE MORE [facility] Encounter Notes: All associated encounter notes This section contains the clinical notes associated to the Encounter. Date/Time Encounter Note(s) Provider Source Jul 09, 2023 12:07 PM ADDENDUM: LOCAL TITLE: Addendum STANDARD TITLE: ADDENDUM DATE OF NOTE: JUL 09, 2023@12:07:35 ENTRY DATE: JUL 09, 2023@12:07:36 AUTHOR: SHELL LILLY EXP COSIGNER: URGENCY: STATUS: COMPLETED Tag[facility] pharmacist to place RTC. Patient requesting to have f/u for DM2 and HTN. Thank you! /darwin/ Shell Lilly DNP, DENTAL SPECIALIST, ASSURANCE SERVICES MANAGER HEALTH CARE-C Primary Care Nurse Practitioner Signed: 07/09/2023 12:08 Receipt Acknowledged By: 07/09/2023 12:36 /darwin/ Brenda Calderon PharmD Clinical Pharmacist Practitioner --- Original Document --- 07/08/23 PRIMARY CARE PROVIDER ESTABLISHED VISIT STL: REASON FOR VISIT/CHIEF COMPLAINT: Evaluation and management of chronic medical conditions/ My scheduled visit HPI: Patient is a 62 year old BLACK OR MALE who presents to the clinic for evaluation and management of chronic medical conditions. Patient denies any recent ED visits or hospitalizations. Patient goes by Jahaira. [place] [facility] [place] Private providers: -Private PCP Dr. Stauffer. -Private GI (patient unsure of name). -Private provider Dr. Mendoza (patient unsure the type of provider this is). -Private optometry at [facility]. #Congestive Heart Failure: Patient has hx of ASD s/p surgical closure 2000. -GDMT: -BB: Carvedilol. -ANTONIO-I: On ARB. -Diuretic: SPIRONOLACTONE and TORSEMIDE. -Other medication: ISOSORBIDE DINITRATE and Empagliflozin. -Euvolemic. -Pt denies SOB, peripheral edema, increased abdominal girth, orthopnea, decreased appetite, scrotal edema. #DM 2: -HGA1C 9.1 H % 01/21/2023. -Medications: EMPAGLIFLOZIN, INSULIN,ASPART and INSULIN,GLARGINE-YFGN. Patient denies taking Liraglutide. -Reports compliance to medication regimen. -Checking blood sugar: Yes. -Blood sugar readings at home: <200 on average. -Eye exam: per private optometry. -Foot exam: See reminders. -Micral: 01/2023. -Statin: Yes. -ACEI: on ARB. -Denies recent hypo/hyperglycemia episodes. -Patient previously managed by [place] pharmacist. Patient requesting to f/u with [place] [facility]. #HTN: -Medications: HYDRALAZINE and VALSARTAN. -Reports compliance to medication regimen. -Reports having blood pressure machine at home. -Blood pressure readings at home: >140/90. -Denies CP, SOB, heart palpitations, headaches, blurred vision, dizziness/lightheadedness. -Patient previously managed by [place] pharmacist. Patient requesting to f/u with [place] [facility]. #HLD: -Medication: Atorvastatin. -Reports compliance with medication regimen. -Denies any new onset of myalgias. #COPD/Asthma: -Medications: ALBUTEROL PRN, Albuterol nebulizer, MONTELUKAST, OLODATEROL/TIOTROP and CICLESONIDE. -Denies increased SOB, coughing, wheezing, mucus production or hemoptysis. #CKD stage 3A: CREATININE 1.37 H mg/dL 04/01/2023 11:52 EGFR (CKD-EPI 2020) 58.7 04/01/2023 11:52 -Denies use of NSAIDs. #Chronic headache: -Medication: TOPIRAMATE. -Denies changes in headache pattern. #LITTLE: -Reports nightly CPAP use. -Patient requesting CPAP supplies. #Obesity: -BMI: 42.36. -Diet: Regular. -Exercise: Denies. #Gout: -Medication: Allopurinol. -Denies compliance with medication regimen. -Denies any recent gout attacks. #GERD: -Medication: OMEPRAZOLE. -Reports compliance with medication regimen. -Denies concerns today. #Vitamin D deficiency: -Denies compliance with supplementation. SOURCE(S) OF HISTORY: Patient PAST MEDICAL HISTORY: 1) Daily headache (SNOMED CT [id number]) 2) Benign essential hypertension 3) Type 2 diabetes mellitus 4) Asthma comment: 01/13/20 pulmonary function testing: mild restrictive abnormality 5) Hyperlipidemia 6) Polyp of colon 7) Chronic prostatitis 8) Prostatic abscess 9) Past history of procedure comment: 02/16/19 cystoscopy, bilateral ureteral stent placement, transuret comment: 04/27/19 cystoscopy, left ureteroscopy, laser lithotripsy, and willie comment: 02/18/19 splenic hemangioma biopsy comment: 2000 cardiac surgery (congenital heart defect; hole closure) comment: 1991 right femur fracture open reduction internal fixation comment: 12/21/19 cystoscopy, right ureteroscopy, laser lithotripsy, stent e 10) Kidney Stone ([facility] [id number]) comment: 04/27/19 calcium oxalate stone analysis 11) Vitamin D Deficiency ([facility] [id number]) 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 13) Obstructive Sleep Apnea Syndrome ([facility] [id number]) comment: 11/08/19 split night sleep study: severe obstructive sleep apnea, c 14) CHF - Congestive Heart Failure ([facility] [id number]) 15) Cough ([facility] [id number]) 16) Obesity ([facility] [id number]) 17) GERD - Gastro-Esophageal Reflux Disease ([facility] [id number]) 18) Chronic Kidney Disease Stage 3 ([facility] [id number]) comment: 12/24/19 bilateral renal ultrasound 19) Gout 20) OA - Osteoarthritis ([facility] [id number]) comment: 09/28/20 lumbar spinal radiograph: lumbar spinal osteoarthritis wi SOCIAL HISTORY: Tobacco: Former smoker. Quit smoking approx. in 2019. Smoked since age 18, 2-3 PPD. Alcohol: Denies. Illicit: Denies. ALLERGIES: METFORMIN ALLERGY REVIEW: Allergy list reviewed and remains current. MEDICATIONS: Active and Recently Outpatient Medications (excluding Supplies): Active Outpatient Medications Status 1) ALBUTEROL 90MCG (CFC-F) 200D ORAL INHL INHALE 2 PUFFS ACTIVE BY ORAL INHALATION FOUR TIMES A DAY NEEDED SHAKE WELL. RINSE MOUTHPIECE FREQUENTLY TO PREVENT CLOGGING. 2) ALBUTEROL SO4 0.083% INHL 3ML INHALE 1 VIAL ACTIVE (2.5MG/3ML) BY NEBULIZATION EVERY 6 HOURS DIRECTED NEEDED FOR EXERCISE-INDUCED BRONCHOSPASM 3) ATORVASTATIN CALCIUM 80MG TAB TAKE ONE-HALF TABLET BY ACTIVE MOUTH EVERY EVENING FOR CHOLESTEROL. REPORT ANY UNEXPLAINED MUSCLE PAIN/WEAKNESS TO PROVIDER. 4) CARVEDILOL 12.5MG TAB TAKE ONE-HALF TABLET BY MOUTH ACTIVE TWICE A DAY TAKE WITH FOOD. 5) CICLESONIDE 160MCG 60D ORAL INHL INHALE 1 PUFF ORAL ACTIVE INHALATION TWICE A DAY FOR ASTHMA 6) EMPAGLIFLOZIN 25MG TAB TAKE ONE-HALF TABLET BY MOUTH ACTIVE ONCE A DAY 7) HYDRALAZINE HCL 100MG TAB TAKE ONE TABLET BY MOUTH ACTIVE THREE TIMES A DAY FOR BLOOD PRESSURE 8) INSULIN,ASPART(EQV-NOVLG)100 UN/ML FLXPEN INJECT 16 ACTIVE UNITS UNDER THE SKIN BEFORE BREAKFAST AND INJECT 16 UNITS BEFORE LUNCH AND INJECT 16 UNITS BEFORE SUPPER FOR BLOOD SUGAR CONTROL. ADMINISTER 10 MINUTES BEFORE FOOD DIRECTED. REFRIGERATE UN-OPENED PENS. DISCARD CARTRIDGE 28 DAYS AFTER OPENING. 9) INSULIN,GLARGINE-YFGN 100UNIT/ML PEN 3ML INJECT 50 ACTIVE UNITS UNDER THE SKIN ONCE A DAY FOR BLOOD SUGAR CONTROL. ADMINISTER AT SAME TIME EACH DAY DIRECTED. DISCARD ANY OPEN CARTRIDGE AFTER 28 DAYS. 10) ISOSORBIDE DINITRATE 20MG ORAL TAB TAKE TWO TABLETS ACTIVE BY MOUTH THREE TIMES A DAY BEFORE MEALS FOR CHEST PAIN ALLOW 10 TO 12 HOURS BETWEEN NIGHT AND MORNING DOSE. 11) MONTELUKAST NA 10MG TAB TAKE ONE TABLET BY MOUTH ACTIVE EVERY EVENING FOR ASTHMA 12) OLODATEROL/TIOTROP 2.5MCG/ACTUAT 60D INH INHALE 2 ACTIVE PUFFS ORAL INHALATION ONCE A DAY FOR ASTHMA ADMINISTER AT SAME TIME EACH DAY 13) OMEPRAZOLE 10MG EC CAP TAKE ONE CAPSULE BY MOUTH ONCE ACTIVE A DAY FOR GASTROESOPHAGEAL REFLUX DISEASE TAKE 30 MINUTES PRIOR TO FOOD. 14) PREDNISONE 10MG TAB TAKE FOUR TABLETS BY MOUTH EVERY ACTIVE MORNING FOR 3 DAYS, THEN TAKE THREE TABLETS EVERY MORNING FOR 3 DAYS, THEN TAKE TWO TABLETS EVERY MORNING FOR 3 DAYS, THEN TAKE ONE TABLET EVERY MORNING FOR 3 DAYS, THEN TAKE ONE-HALF TABLET EVERY MORNING FOR 3 DAYS FOR ASTHMA EXACERBATION TAKE WITH FOOD OR MILK. 15) SPIRONOLACTONE 25MG TAB TAKE ONE TABLET BY MOUTH ONCE ACTIVE A DAY 16) TOPIRAMATE 50MG TAB TAKE ONE TABLET BY MOUTH TWICE A ACTIVE DAY FOR MIGRAINE PROPHYLAXIS 17) TORSEMIDE 20MG TAB TAKE TWO TABLETS BY MOUTH TWICE A ACTIVE DAY FOR FLUID RETENTION (EDEMA) (TAKE IN MORNING AND AFTERNOON) Inactive Outpatient Medications Status 1) ACCU-CHEK GUIDE (GLUCOSE) TEST STRIP USE 1 STRIP FOR BLOOD TEST FOUR TIMES A DAY 2) ACCU-CHEK GUIDE ME (GLUCOSE) METER USE GLUCOSE METER FOR DIRECTED FOR BLOOD SUGAR MONITORING -CONTACT COMPANY FOR REPLACEMENT OR PROBLEM 3) ALLOPURINOL 300MG TAB TAKE ONE TABLET BY MOUTH ONCE A DAY FOR GOUT TAKE WITH PLENTY OF WATER. Active Non-VA Medications Status 1) Non-VA AMLODIPINE BESYLATE 10MG TAB 10MG BY MOUTH ACTIVE ONCE A DAY 2) Non-VA ASPIRIN 81MG CHEW TAB 81MG BY MOUTH ONCE A DAY ACTIVE 3) Non-VA TAMSULOSIN HCL 0.4MG CAP 0.4MG BY MOUTH ONCE A ACTIVE DAY 23 Total Medications REVIEW OF SYSTEMS: Constitutional: Denies weight loss, fever, chills. Ears, Nose, Mouth, Throat: Denies nasal drainage or sore throat. Denies dizziness. Endocrinology: Denies heat or cold intolerance, polydipsia, polyuria, or polyphagia. Cardiovascular: Denies chest pain, palpitations, or dizziness. Respiratory: Denies cough or shortness of breath. ABD/GI: Denies abdominal pain, nausea, vomiting, constipation, diarrhea or incontinence. Musculoskeletal/Extremities: Denies edema. Denies pain. /CAKE ICER: Denies frequency, hesitancy, urgency, or hematuria. Psychology: Denies insomnia or SI/HI. Denies anxiety or depression. Neurology: Denies NDIAYE, tremors, neuropathy, or seizures. Skin: Denies rashes, skin lesions. PHYSICAL EXAMINATION: VITALS (most recent, as listed in the electronic record): Temperature: 98.8 F [37.1 C] (07/08/2023 13:49) BP: 164/82 (07/08/2023 14:48) Pulse: 67 (07/08/2023 13:49) Resp: 20 (07/08/2023 13:49) PulsOx: 93% (07/08/2023 13:49) Pain: 0 (07/08/2023 13:49) Weight: Measurement DT WEIGHT LB(KG)[BMI] 07/08/2023 13:49 278(126.10)[42*] 06/25/2023 09:32 277.1(125.69)[42*] 04/01/2023 10:16 283.8(128.73)[43*] HEENT: EOMI, PERRLA, Moist mucous membranes. No Scleral icterus or cervical lymphadenopathy. Lungs: Clear to auscultation bilaterally. No accessory muscle use. Cardiovascular: Regular rate and rhythm. No murmur. No JVD. Abdomen: Soft, nontender and non-distended. No palpable masses. Positive bowel sounds in all four quadrants. Extremities: No edema. Nontender. Full ROM to all joints. Gait steady. : Deferred. Neurologic: No focal neurological deficits. Psychiatric: Appropriate mood and affect. Skin: Skin warm, dry and intact. No lesions or rashes noted. DATA REVIEW: HGA1C 9.1 H % 01/21/2023 10:04 Lipid Panel: TRIGLYCERIDE 377 H mg/dL 01/21/2023 10:04 CHOLESTEROL 125 mg/dL 01/21/2023 10:04 HDL(New) 27 L mg/dL 01/21/2023 10:04 DIRECT LDL 46 L mg/dL 01/21/2023 10:04 CALCULATED LDL comment mg/dL 01/21/2023 10:04 CMP: SODIUM 141 mEq/L 04/01/2023 11:52 POTASSIUM 3.4 L mEq/L 04/01/2023 11:52 CHLORIDE 106 mEq/L 04/01/2023 11:52 UREA NITROGEN 14.2 mg/dL 04/01/2023 11:52 CREATININE 1.37 H mg/dL 04/01/2023 11:52 CALCIUM 8.7 mg/dL 04/01/2023 11:52 PROTEIN 7.7 g/dL 01/21/2023 10:04 ALBUMIN 4.1 g/dL 01/21/2023 10:06 ALKALINE PHOSPHATASE 78 U/L 01/21/2023 10:04 ALT/SGPT 18 U/L 01/21/2023 10:04 AST/SGOT 12 U/L 01/21/2023 10:04 TOTAL BILIRUBIN 0.6 mg/dL 01/21/2023 10:04 CARBON DIOXIDE 25 mEq/L 04/01/2023 11:52 GLUCOSE 206 H mg/dL 04/01/2023 11:52 EGFR (CKD-EPI 2020) 58.7 04/01/2023 11:52 CBC: WBC 5.7 10*3/uL 06/25/2023 10:55 RBC 5.00 10*6/uL 06/25/2023 10:55 HGB 12.8 L g/dL 06/25/2023 10:55 HCT 39.5 % 06/25/2023 10:55 MCV 79.0 L fL 06/25/2023 10:55 MCH 25.6 L pg 06/25/2023 10:55 MCHC 32.4 L g/dL 06/25/2023 10:55 RDW 15.5 H % 06/25/2023 10:55 PLT 166 10*3/uL 06/25/2023 10:55 MPV 11.8 H fL 06/25/2023 10:55 NEUTROPHILS, AUTO % 60 % 06/25/2023 10:55 LYMPHOCYTES, AUTO % 25 % 06/25/2023 10:55 MONOCYTES, AUTO % 9 % 06/25/2023 10:55 EOSINOPHILS, AUTO % 4 % 06/25/2023 10:55 BASOPHILS, AUTO % 1 % 06/25/2023 10:55 IMMATURE GRANS, AUTO % 0.5 % 12/06/2021 10:54 NEUTROPHILS, ABSOLUTE 3.44 10*3/uL 06/25/2023 10:55 LYMPHOCYTES, ABSOLUTE 1.45 10*3/uL 06/25/2023 10:55 MONOCYTES, ABSOLUTE 0.50 10*3/uL 06/25/2023 10:55 EOSINOPHILS, ABSOLUTE 0.25 10*3/uL 06/25/2023 10:55 BASOPHILS, ABSOLUTE 0.03 10*3/uL 06/25/2023 10:55 IMMATURE GRANS, AUTO ABS 0.03 10*3/uL 12/06/2021 10:54 PSA: PROST. SPECIFIC AG.(PB-STL) 1.508 ng/mL 01/21/2023 10:04 Result: Acceptable Health maintenance: -Declines immunizations today. Immunization Series Date Facility Reaction Info COVID-19 (MODERNA), MRNA, LNP-S,* 1 05/21/2022 [facility] COVID-19 (MODERNA), MRNA, LNP-S,* 4 12/06/2021 [facility] <C> COVID-19 (MODERNA), MRNA, LNP-S,* 3 05/02/2021 [facility] <C> COVID-19 (MODERNA), MRNA, LNP-S,* 2 07/15/2020 [facility] <C> COVID-19 (MODERNA), MRNA, LNP-S,* 1 06/17/2020 [facility] <C> INFLUENZA, INJECTABLE, QUADRIVAL* 01/07/2023 [facility] PNEUMOCOCCAL CONJUGATE PCV 13 C 12/27/2020 [facility] PNEUMOCOCCAL POLYSACCHARIDE PPV23 C 12/06/2021 [facility] TDAP 06/27/2017 [facility]* <C> ZOSTER RECOMBINANT 2 12/06/2021 [facility]* ZOSTER RECOMBINANT 1 12/27/2020 [facility] Colonoscopy: Patient reports obtained historically in the private sector at [facility] approx. 2010 per patient. [place] requesting this to be ordered at the [place]. CSCOPE ordered. LDCT: Pending to be scheduled for 01/2024. Date Procedure CPT Status Case # 02/05/2023 LDCT LUNG CANCER SCREENING [id number] Verified [id number] LUNG-RADS: 1: Negative. RECOMMENDATION: [address] follow-up, if patient meets screening criteria. LUNG-RADS MODIFIER: N/A. AAA screening: Due at age 66. Eye exam: Evaluation and management per private optometry. Labs ordered: A1C and Uric acid. CBC, Renal panel, PTH, Micral, Vitamin D ordered per [place] renal. ASSESSMENT/PLAN: Congestive Heart Failure: -Euvolemic on exam, no evidence of decompensation noted. -Continue to trend renal function and electrolytes. -Reviewed lifestyle modifications and s/s of fluid volume overload and when to notify PCP. -Educated to monitor weight at home daily & report if notices 3lbs in 1 day or 5lbs in 1 week. -Evaluation and management per [place] cardiology. DM 2: -Continue to check BG as recommended. -Continue medication regimen. -Reviewed lifestyle modifications. -Educated to check feet daily and to have an eye exam yearly. HTN: -Continue prescribed regimen. -Instructed patient to check BP daily 1-2 hours after medications. -Discussed importance of regular exercise and/or physical activity in the control of blood pressure. -Discussed low sodium diet w/ <2 g daily. -Discussed avoidance of caffeine. -Discussed appropriate sleep hygiene and quality with >6 hours of uninterrupted sleep. -Self-monitor BP at home and report readings consistently above goal of <140/80. -Will addendum note for [place] [facility] pharmacist to place RTC. HLD: -Continue medication regimen. -Reviewed lifestyle modifications including participating in a low fat/low cholesterol diet. -Dietitian contact information given. COPD/Asthma: -Continue medication regimen. -Reviewed lifestyle modifications. -Evaluation and management per [facility]. CKD stage 3A: -Recommended to stay hydrated and to avoid NSAIDs. -Reviewed lifestyle modifications. -Foundation Director contact information given. -Evaluation and management per [facility]. Chronic headache: -Continue medication regimen. -Reviewed potential migraine triggers. LITTLE: -CPAP clinic contact information given for patient to order supplies. -Continue using CPAP machine nightly. -Clean machine daily and replace filters q6m. -The patient has been advised that using CPAP regularly can decrease cardiac strain and help to control blood pressure. Obesity: -Reviewed lifestyle modifications. -MOVE program and dietitian contact information given. Gout: -Continue current medication regimen. Recommend medication compliance. -Educated to avoid alcohol, seafood and organ meats. GERD: -Continue medication regimen. -Reviewed lifestyle modifications. -Educated to avoid triggering foods such as alcohol, caffeinated drinks, chocolate, coffee, spicy foods, citrus foods, tomatoes etc. -Evaluation and management per [facility]. Vitamin D Deficiency: -Vitamin D level ordered per [facility]. -Reviewed foods high in vitamin D including: Milk, orange juice, yogurt, salmon, canned tuna fish, cod liver oil and cereals with vitamin D added. -Evaluation and management per [facility]. RETURN TO CLINIC: 6 months or earlier as needed. SUMMARY STATEMENT: Plan of care has been discussed with including expected therapeutic benefits and potential side effects of prescribed medication and treatments. [place] verbalizes understanding and is in agreement with the plan of care. Patient was instructed to keep all scheduled appointments and contact service coordinator elderly facility for any additional problems. 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 Handwritten corrections, additions and/or deletions were made to the list, as appropriate. Corrected Outpatient Medication List was provided to the patient/caregiver. PAVE Foot Check: A complete foot check was completed at this encounter. VISUAL INSPECTION: Includes inspection for skin breaks, deformity, erythema, trauma, pallor on elevation, dependent rubor, nail deformities, extensive callus and pitting edema. Visual exam results: Normal PEDAL PULSES: Includes palpation of dorsalis and posterior tibial pulses and signs/symptoms of vascular compromise like pain, pallor, parasthesia or paralysis. Present (even if diminished) SENSORY CHECK: Includes 10 gram Monofilament (Henlawson-Emil) test of sensation. Intact (Greater than or equal to 80% of sites checked) Abnormal (Less than 80% of sites checked): Abnormal (decreased or absent sensation to monofilament): Comment: Bilateral heels HIGH-RISK HIGH RISK FOOT EDUCATION: 1. Advised patient that extra depth footwear with soft molded inserts and braces may be required. 2. Advised patient not to walk barefoot. Instructed the patient to pay close attention to the style and fit of shoes. 3. Explained the importance of daily foot checks. Explained that loss of sensation leads to callouses. Callouses break down, which result in ulcers that may lead to gangrene and amputation. 4. Stressed the importance of daily foot hygiene. Warm (not hot) bathing of the feet, complete drying and thorough inspection for changes in the condition of the skin constitute daily foot care. Demonstrated how to do a thorough foot check. 5. Emphasized the use of clean, non-restrictive socks/stockings and well fitting shoes. 6. Stressed the importance of immediate follow-up of any foot injuries or ulcers. Explained that he/she should be non-weight bearing whenever there are lesions on the foot, to prevent cellular damage. Level of Understanding: Good Patient refused referral to Podiatry Palliative Care Provider: Palliative care is not clinically indicated at this time. /darwin/ Shell Lilly DNP, DENTAL SPECIALIST, ASSURANCE SERVICES MANAGER HEALTH CARE-C Primary Care Nurse Practitioner Signed: 07/09/2023 12:07 [facility] Jul 08, 2023 01:54 PM NURSING NOTE: LOCAL TITLE: V15 PACT FACE TO FACE NOTE STL STANDARD TITLE: NURSING NOTE DATE OF NOTE: JUL 08, 2023@13:54 ENTRY DATE: JUL 08, 2023@13:54:12 AUTHOR: PAT GODWIN COSIGNER: URGENCY: STATUS: COMPLETED Provider Visit: Patient Identifiers : Full Name Date of Reason for visit: Established Follow-Up Mode of Arrival: Ambulatory Allergy Review: METFORMIN Allergy list reviewed and remains current. Recent Vital Signs: Temperature: 98.8 F [37.1 C] (07/08/2023 13:49) Pulse: 67 (07/08/2023 13:49) Respiration: 20 (07/08/2023 13:49) B/P: 192/68 (07/08/2023 13:49) Pain: 0 (07/08/2023 13:49) Wt: 278 lb [126.10 kg] (07/08/2023 13:49) Ht: 68 in [172.7 cm] (06/25/2023 09:32) BMI: 42.4 POX: 93% (07/08/2023 13:49) Would you like to discuss any personal problem, family problem, alcohol use, drug use, or a mental or emotional illness? No My [facility] ([facility]), please select appointment type: Face to face: No- Are you interested in getting this done? No Contact provided Primary Care phone number and encouraged to call if any questions or concerns. Review that after hours nurse line [phone] and emergency room are available 04/11 for patient use. Contact verbalized good understanding. COVID-19 Immunization: Refused Moderna Monovalent COVID-19 vaccine Immunization: COVID-19 (MODERNA), MRNA, LNP-S, PF, 50 MCG/0.5 ML (AGES 12+ YEARS) Refusal Reason: PATIENT DECISION Patient refuses all immunization(s) in the COVID-19 group Date Documented: 07/08/23 13:55 Homelessness/Food Insecurity Screen: In the past 2 months, have you been living in stable housing that you own, rent, or stay in as part of a household? Yes - Living in stable housing. Are you worried or concerned that in the next 2 months you may NOT have stable housing that you own, rent, or stay in as part of a household? No - Not worried about housing near future The reports the following: Within the past 12 months, you worried whether your food would run out before you got money to buy more. Never true Within the past 12 months, the food you bought just didn't last and you didn't have money to get more. Never true Learning Assessment: - * This patient's patient's learning ABILITIES, BARRIERS to learning, CULTURAL and CONFUCIANIST beliefs, and learning PREFERENCES were assessed. Following are findings of note: Patient reads with difficulty. Instructional material needs to be at low level of difficulty. Comment: special needs Patient has the following hearing/auditory barrier(s) to consider when teaching: No hearing barrier identified. Patient has the following speech barrier to consider when teaching: No speech barrier identified. LANGUAGE Patient reports that Tongan is preferred language for healthcare. Patient has the following language barrier to consider when teaching: No language barrier has been identified. Patient has the following vision barrier(s) to consider when teaching: Requires glasses/contacts for reading Patient has the following dexterity/mobility barrier(s) to consider when teaching: No dexterity/mobility barrier has been identified. Patient has the following cognitive/memory barrier(s) to consider when teaching: No cognitive/memory barrier has been identified. Patient has the following emotional/psychological barrier(s) to consider when teaching: No emotional/psychosocial barrier has been identified. /darwin/ PAT GODWIN LPN LICENSED PRACITCAL NURSE Signed: 07/08/2023 13:57 PAT GODWIN [facility] Jul 08, 2023 01:39 PM PRIMARY CARE NOTE: LOCAL TITLE: PRIMARY CARE PROVIDER ESTABLISHED VISIT ST STANDARD TITLE: PRIMARY CARE NOTE DATE OF NOTE: JUL 08, 2023@13:39 ENTRY DATE: JUL 08, 2023@13:40:03 AUTHOR: SHELL LILLY COSIGNER: URGENCY: STATUS: COMPLETED PRIMARY CARE PROVIDER ESTABLISHED VISIT STL Has ADDENDA REASON FOR VISIT/CHIEF COMPLAINT: Evaluation and management of chronic medical conditions/ My scheduled visit HPI: Patient is a 62 year old BLACK OR MALE who presents to the clinic for evaluation and management of chronic medical conditions. Patient denies any recent ED visits or hospitalizations. Patient goes by Jahaira. [place] [facility] [place] Private providers: -Private PCP Dr. Stauffer. -Private GI (patient unsure of name). -Private provider Dr. Mendoza (patient unsure the type of provider this is). -Private optometry at [facility]. #Congestive Heart Failure: Patient has hx of ASD s/p surgical closure 2000. -GDMT: -BB: Carvedilol. -ANTONIO-I: On ARB. -Diuretic: SPIRONOLACTONE and TORSEMIDE. -Other medication: ISOSORBIDE DINITRATE and Empagliflozin. -Euvolemic. -Pt denies SOB, peripheral edema, increased abdominal girth, orthopnea, decreased appetite, scrotal edema. #DM 2: -HGA1C 9.1 H % 01/21/2023. -Medications: EMPAGLIFLOZIN, INSULIN,ASPART and INSULIN,GLARGINE-YFGN. Patient denies taking Liraglutide. -Reports compliance to medication regimen. -Checking blood sugar: Yes. -Blood sugar readings at home: <200 on average. -Eye exam: per private optometry. -Foot exam: See reminders. -Micral: 01/2023. -Statin: Yes. -ACEI: on ARB. -Denies recent hypo/hyperglycemia episodes. -Patient previously managed [facility]. [facility] with [facility]. #HTN: -Medications: HYDRALAZINE and VALSARTAN. -Reports compliance to medication regimen. -Reports having blood pressure machine at home. -Blood pressure readings at home: >140/90. -Denies CP, SOB, heart palpitations, headaches, blurred vision, dizziness/lightheadedness. -Patient previously managed by [facility]ist. Patient requesting to f[facility]u with [facility]. #HLD: -Medication: Atorvastatin. -Reports compliance with medication regimen. -Denies any new onset of myalgias. #COPD/Asthma: -Medications: ALBUTEROL PRN, Albuterol nebulizer, MONTELUKAST, OLODATEROL/TIOTROP and CICLESONIDE. -Denies increased SOB, coughing, wheezing, mucus production or hemoptysis. #CKD stage 3A: CREATININE 1.37 H mg/dL 04/01/2023 11:52 EGFR (CKD-EPI 2020) 58.7 04/01/2023 11:52 -Denies use of NSAIDs. #Chronic headache: -Medication: TOPIRAMATE. -Denies changes in headache pattern. #LITTLE: -Reports nightly CPAP use. -Patient requesting CPAP supplies. #Obesity: -BMI: 42.36. -Diet: Regular. -Exercise: Denies. #Gout: -Medication: Allopurinol. -Denies compliance with medication regimen. -Denies any recent gout attacks. #GERD: -Medication: OMEPRAZOLE. -Reports compliance with medication regimen. -Denies concerns today. #Vitamin D deficiency: -Denies compliance with supplementation. SOURCE(S) OF HISTORY: Patient PAST MEDICAL HISTORY: 1) Daily headache (SNOMED CT [id number]) 2) Benign essential hypertension 3) Type 2 diabetes mellitus 4) Asthma comment: 01/13/20 pulmonary function testing: mild restrictive abnormality 5) Hyperlipidemia 6) Polyp of colon 7) Chronic prostatitis 8) Prostatic abscess 9) Past history of procedure comment: 02/16/19 cystoscopy, bilateral ureteral stent placement, transuret comment: 04/27/19 cystoscopy, left ureteroscopy, laser lithotripsy, and willie comment: 02/18/19 splenic hemangioma biopsy comment: 2000 cardiac surgery (congenital heart defect; hole closure) comment: 1991 right femur fracture open reduction internal fixation comment: 12/21/19 cystoscopy, right ureteroscopy, laser lithotripsy, stent e 10) Kidney Stone ([facility] [id number]) comment: 04/27/19 calcium oxalate stone analysis 11) Vitamin D Deficiency ([facility] [id number]) 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 13) Obstructive Sleep Apnea Syndrome ([facility] [id number]) comment: 11/08/19 split night sleep study: severe obstructive sleep apnea, c 14) CHF - Congestive Heart Failure ([facility] [id number]) 15) Cough ([facility] [id number]) 16) Obesity ([facility] [id number]) 17) GERD - Gastro-Esophageal Reflux Disease ([facility] [id number]) 18) Chronic Kidney Disease Stage 3 ([facility] [id number]) comment: 12/24/19 bilateral renal ultrasound 19) Gout 20) OA - Osteoarthritis ([facility] [id number]) comment: 09/28/20 lumbar spinal radiograph: lumbar spinal osteoarthritis wi SOCIAL HISTORY: Tobacco: Former smoker. Quit smoking approx. in 2019. Smoked since age 18, 2-3 PPD. Alcohol: Denies. Illicit: Denies. ALLERGIES: METFORMIN ALLERGY REVIEW: Allergy list reviewed and remains current. MEDICATIONS: Active and Recently Outpatient Medications (excluding Supplies): Active Outpatient Medications Status 1) ALBUTEROL 90MCG (CFC-F) 200D ORAL INHL INHALE 2 PUFFS ACTIVE BY ORAL INHALATION FOUR TIMES A DAY NEEDED SHAKE WELL. RINSE MOUTHPIECE FREQUENTLY TO PREVENT CLOGGING. 2) ALBUTEROL SO4 0.083% INHL 3ML INHALE 1 VIAL ACTIVE (2.5MG/3ML) BY NEBULIZATION EVERY 6 HOURS DIRECTED NEEDED FOR EXERCISE-INDUCED BRONCHOSPASM 3) ATORVASTATIN CALCIUM 80MG TAB TAKE ONE-HALF TABLET BY ACTIVE MOUTH EVERY EVENING FOR CHOLESTEROL. REPORT ANY UNEXPLAINED MUSCLE PAIN/WEAKNESS TO PROVIDER. 4) CARVEDILOL 12.5MG TAB TAKE ONE-HALF TABLET BY MOUTH ACTIVE TWICE A DAY TAKE WITH FOOD. 5) CICLESONIDE 160MCG 60D ORAL INHL INHALE 1 PUFF ORAL ACTIVE INHALATION TWICE A DAY FOR ASTHMA 6) EMPAGLIFLOZIN 25MG TAB TAKE ONE-HALF TABLET BY MOUTH ACTIVE ONCE A DAY 7) HYDRALAZINE HCL 100MG TAB TAKE ONE TABLET BY MOUTH ACTIVE THREE TIMES A DAY FOR BLOOD PRESSURE 8) INSULIN,ASPART(EQV-NOVLG)100 UN/ML FLXPEN INJECT 16 ACTIVE UNITS UNDER THE SKIN BEFORE BREAKFAST AND INJECT 16 UNITS BEFORE LUNCH AND INJECT 16 UNITS BEFORE SUPPER FOR BLOOD SUGAR CONTROL. ADMINISTER 10 MINUTES BEFORE FOOD DIRECTED. REFRIGERATE UN-OPENED PENS. DISCARD CARTRIDGE 28 DAYS AFTER OPENING. 9) INSULIN,GLARGINE-YFGN 100UNIT/ML PEN 3ML INJECT 50 ACTIVE UNITS UNDER THE SKIN ONCE A DAY FOR BLOOD SUGAR CONTROL. ADMINISTER AT SAME TIME EACH DAY DIRECTED. DISCARD ANY OPEN CARTRIDGE AFTER 28 DAYS. 10) ISOSORBIDE DINITRATE 20MG ORAL TAB TAKE TWO TABLETS ACTIVE BY MOUTH THREE TIMES A DAY BEFORE MEALS FOR CHEST PAIN ALLOW 10 TO 12 HOURS BETWEEN NIGHT AND MORNING DOSE. 11) MONTELUKAST NA 10MG TAB TAKE ONE TABLET BY MOUTH ACTIVE EVERY EVENING FOR ASTHMA 12) OLODATEROL/TIOTROP 2.5MCG/ACTUAT 60D INH INHALE 2 ACTIVE PUFFS ORAL INHALATION ONCE A DAY FOR ASTHMA ADMINISTER AT SAME TIME EACH DAY 13) OMEPRAZOLE 10MG EC CAP TAKE ONE CAPSULE BY MOUTH ONCE ACTIVE A DAY FOR GASTROESOPHAGEAL REFLUX DISEASE TAKE 30 MINUTES PRIOR TO FOOD. 14) PREDNISONE 10MG TAB TAKE FOUR TABLETS BY MOUTH EVERY ACTIVE MORNING FOR 3 DAYS, THEN TAKE THREE TABLETS EVERY MORNING FOR 3 DAYS, THEN TAKE TWO TABLETS EVERY MORNING FOR 3 DAYS, THEN TAKE ONE TABLET EVERY MORNING FOR 3 DAYS, THEN TAKE ONE-HALF TABLET EVERY MORNING FOR 3 DAYS FOR ASTHMA EXACERBATION TAKE WITH FOOD OR MILK. 15) SPIRONOLACTONE 25MG TAB TAKE ONE TABLET BY MOUTH ONCE ACTIVE A DAY 16) TOPIRAMATE 50MG TAB TAKE ONE TABLET BY MOUTH TWICE A ACTIVE DAY FOR MIGRAINE PROPHYLAXIS 17) TORSEMIDE 20MG TAB TAKE TWO TABLETS BY MOUTH TWICE A ACTIVE DAY FOR FLUID RETENTION (EDEMA) (TAKE IN MORNING AND AFTERNOON) Inactive Outpatient Medications Status 1) ACCU-CHEK GUIDE (GLUCOSE) TEST STRIP USE 1 STRIP FOR BLOOD TEST FOUR TIMES A DAY 2) ACCU-CHEK GUIDE ME (GLUCOSE) METER USE GLUCOSE METER FOR DIRECTED FOR BLOOD SUGAR MONITORING -CONTACT [facility] FOR REPLACEMENT OR PROBLEM 3) ALLOPURINOL 300MG TAB TAKE ONE TABLET BY MOUTH ONCE A DAY FOR GOUT TAKE WITH PLENTY OF WATER. Active Non-VA Medications Status 1) Non-VA AMLODIPINE BESYLATE 10MG TAB 10MG BY MOUTH ACTIVE ONCE A DAY 2) Non-VA ASPIRIN 81MG CHEW TAB 81MG BY MOUTH ONCE A DAY ACTIVE 3) Non-VA TAMSULOSIN HCL 0.4MG CAP 0.4MG BY MOUTH ONCE A ACTIVE DAY 23 Total Medications REVIEW OF SYSTEMS: Constitutional: Denies weight loss, fever, chills. Ears, Nose, Mouth, Throat: Denies nasal drainage or sore throat. Denies dizziness. Endocrinology: Denies heat or cold intolerance, polydipsia, polyuria, or polyphagia. Cardiovascular: Denies chest pain, palpitations, or dizziness. Respiratory: Denies cough or shortness of breath. ABD/GI: Denies abdominal pain, nausea, vomiting, constipation, diarrhea or incontinence. Musculoskeletal/Extremities: Denies edema. Denies pain. /CAKE ICER: Denies frequency, hesitancy, urgency, or hematuria. Psychology: Denies insomnia or SI/HI. Denies anxiety or depression. Neurology: Denies NDIAYE, tremors, neuropathy, or seizures. Skin: Denies rashes, skin lesions. PHYSICAL EXAMINATION: VITALS (most recent, as listed in the electronic record): Temperature: 98.8 F [37.1 C] (07/08/2023 13:49) BP: 164/82 (07/08/2023 14:48) Pulse: 67 (07/08/2023 13:49) Resp: 20 (07/08/2023 13:49) PulsOx: 93% (07/08/2023 13:49) Pain: 0 (07/08/2023 13:49) Weight: Measurement DT WEIGHT LB(KG)[BMI] 07/08/2023 13:49 278(126.10)[42*] 06/25/2023 09:32 277.1(125.69)[42*] 04/01/2023 10:16 283.8(128.73)[43*] HEENT: EOMI, PERRLA, Moist mucous membranes. No Scleral icterus or cervical lymphadenopathy. Lungs: Clear to auscultation bilaterally. No accessory muscle use. Cardiovascular: Regular rate and rhythm. No murmur. No JVD. Abdomen: Soft, nontender and non-distended. No palpable masses. Positive bowel sounds in all four quadrants. Extremities: No edema. Nontender. Full ROM to all joints. Gait steady. : Deferred. Neurologic: No focal neurological deficits. Psychiatric: Appropriate mood and affect. Skin: Skin warm, dry and intact. No lesions or rashes noted. DATA REVIEW: HGA1C 9.1 H % 01/21/2023 10:04 Lipid Panel: TRIGLYCERIDE 377 H mg/dL 01/21/2023 10:04 CHOLESTEROL 125 mg/dL 01/21/2023 10:04 HDL(New) 27 L mg/dL 01/21/2023 10:04 DIRECT LDL 46 L mg/dL 01/21/2023 10:04 CALCULATED LDL comment mg/dL 01/21/2023 10:04 CMP: SODIUM 141 mEq/L 04/01/2023 11:52 POTASSIUM 3.4 L mEq/L 04/01/2023 11:52 CHLORIDE 106 mEq/L 04/01/2023 11:52 UREA NITROGEN 14.2 mg/dL 04/01/2023 11:52 CREATININE 1.37 H mg/dL 04/01/2023 11:52 CALCIUM 8.7 mg/dL 04/01/2023 11:52 PROTEIN 7.7 g/dL 01/21/2023 10:04 ALBUMIN 4.1 g/dL 01/21/2023 10:06 ALKALINE PHOSPHATASE 78 U/L 01/21/2023 10:04 ALT/SGPT 18 U/L 01/21/2023 10:04 AST/SGOT 12 U/L 01/21/2023 10:04 TOTAL BILIRUBIN 0.6 mg/dL 01/21/2023 10:04 CARBON DIOXIDE 25 mEq/L 04/01/2023 11:52 GLUCOSE 206 H mg/dL 04/01/2023 11:52 EGFR (CKD-EPI 2020) 58.7 04/01/2023 11:52 CBC: WBC 5.7 10*3/uL 06/25/2023 10:55 RBC 5.00 10*6/uL 06/25/2023 10:55 HGB 12.8 L g/dL 06/25/2023 10:55 HCT 39.5 % 06/25/2023 10:55 MCV 79.0 L fL 06/25/2023 10:55 MCH 25.6 L pg 06/25/2023 10:55 MCHC 32.4 L g/dL 06/25/2023 10:55 RDW 15.5 H % 06/25/2023 10:55 PLT 166 10*3/uL 06/25/2023 10:55 MPV 11.8 H fL 06/25/2023 10:55 NEUTROPHILS, AUTO % 60 % 06/25/2023 10:55 LYMPHOCYTES, AUTO % 25 % 06/25/2023 10:55 MONOCYTES, AUTO % 9 % 06/25/2023 10:55 EOSINOPHILS, AUTO % 4 % 06/25/2023 10:55 BASOPHILS, AUTO % 1 % 06/25/2023 10:55 IMMATURE GRANS, AUTO % 0.5 % 12/06/2021 10:54 NEUTROPHILS, ABSOLUTE 3.44 10*3/uL 06/25/2023 10:55 LYMPHOCYTES, ABSOLUTE 1.45 10*3/uL 06/25/2023 10:55 MONOCYTES, ABSOLUTE 0.50 10*3/uL 06/25/2023 10:55 EOSINOPHILS, ABSOLUTE 0.25 10*3/uL 06/25/2023 10:55 BASOPHILS, ABSOLUTE 0.03 10*3/uL 06/25/2023 10:55 IMMATURE GRANS, AUTO ABS 0.03 10*3/uL 12/06/2021 10:54 PSA: PROST. SPECIFIC AG.(PB-STL) 1.508 ng/mL 01/21/2023 10:04 Result: Acceptable Health maintenance: -Declines immunizations today. Immunization Series Date Facility Reaction Info COVID-19 (MODERNA), MRNA, LNP-S,* 1 05/21/[facility] COVID-19 (MODERNA), MRNA, LNP-S,* 4 12/06/2021 [facility] <C> COVID-19 (MODERNA), MRNA, LNP-S,* 3 05/02/2021 [facility] <C> COVID-19 (MODERNA), MRNA, LNP-S,* 2 07/15/2020 [facility] <C> COVID-19 (MODERNA), MRNA, LNP-S,* 1 06/17/2020 [facility] <C> INFLUENZA, INJECTABLE, QUADRIVAL* 01/07/2023 [facility] PNEUMOCOCCAL CONJUGATE PCV 13 C 12/27/2020 [facility] PNEUMOCOCCAL POLYSACCHARIDE PPV23 C 12/06/2021 [facility] TDAP 06/27/2017 [facility]* <C> ZOSTER RECOMBINANT 2 12/06/2021 [facility]* ZOSTER RECOMBINANT 1 12/27/2020 [facility]* Colonoscopy: Patient reports obtained historically in the private sector at [facility] approx. 2010 per patient. Patient requesting this to be ordered at the [place]. CSCOPE ordered. LDCT: Pending to be scheduled for 01/2024. Date Procedure CPT Status Case # 02/05/2023 LDCT LUNG CANCER SCREENING [id number] Verified [id number] LUNG-RADS: 1: Negative. RECOMMENDATION: [address] follow-up, if patient meets screening criteria. LUNG-RADS MODIFIER: N/A. AAA screening: Due at age 66. Eye exam: Evaluation and management per private optometry. Labs ordered: A1C and Uric acid. CBC, Renal panel, PTH, Micral, Vitamin D ordered per [facility]. ASSESSMENT/PLAN: Congestive Heart Failure: -Euvolemic on exam, no evidence of decompensation noted. -Continue to trend renal function and electrolytes. -Reviewed lifestyle modifications and s/s of fluid volume overload and when to notify PCP. -Educated to monitor weight at home daily & report if notices 3lbs in 1 day or 5lbs in 1 week. -Evaluation and management per [facility]. DM 2: -Continue to check BG as recommended. -Continue medication regimen. -Reviewed lifestyle modifications. -Educated to check feet daily and to have an eye exam yearly. HTN: -Continue prescribed regimen. -Instructed patient to check BP daily 1-2 hours after medications. -Discussed importance of regular exercise and/or physical activity in the control of blood pressure. -Discussed low sodium diet w/ <2 g daily. -Discussed avoidance of caffeine. -Discussed appropriate sleep hygiene and quality with >6 hours of uninterrupted sleep. -Self-monitor BP at home and report readings consistently above goal of <140/80. -Will addendum note for [facility] pharmacist to place RTC. HLD: -Continue medication regimen. -Reviewed lifestyle modifications including participating in a low fat/low cholesterol diet. -Dietitian contact information given. COPD/Asthma: -Continue medication regimen. -Reviewed lifestyle modifications. -Evaluation and management per [facility]. CKD stage 3A: -Recommended to stay hydrated and to avoid NSAIDs. -Reviewed lifestyle modifications. -Foundation Director contact information given. -Evaluation and management per [facility]. Chronic headache: -Continue medication regimen. -Reviewed potential migraine triggers. LITTLE: -CPAP clinic contact information given for patient to order supplies. -Continue using CPAP machine nightly. -Clean machine daily and replace filters q6m. -The patient has been advised that using CPAP regularly can decrease cardiac strain and help to control blood pressure. Obesity: -Reviewed lifestyle modifications. -MOVE program and dietitian contact information given. Gout: -Continue current medication regimen. Recommend medication compliance. -Educated to avoid alcohol, seafood and organ meats. GERD: -Continue medication regimen. -Reviewed lifestyle modifications. -Educated to avoid triggering foods such as alcohol, caffeinated drinks, chocolate, coffee, spicy foods, citrus foods, tomatoes etc. -[facility] Vitamin D Deficiency: -Vitamin D level [facility] per [facility]. -Reviewed foods high in vitamin D including: Milk, orange juice, yogurt, salmon, canned tuna fish, cod liver oil and cereals with vitamin D added. -[facility] RETURN TO CLINIC: 6 months or earlier as needed. SUMMARY STATEMENT: Plan of care has been discussed with including expected therapeutic benefits and potential side effects of prescribed medication and treatments. [place] verbalizes understanding and is in agreement with the plan of care. Patient was instructed to keep all scheduled appointments and contact service coordinator elderly facility for any additional problems. 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 Handwritten corrections, additions and/or deletions were made to the list, as appropriate. Corrected Outpatient Medication List was provided to the patient/caregiver. PAVE Foot Check: A complete foot check was completed at this encounter. VISUAL INSPECTION: Includes inspection for skin breaks, deformity, erythema, trauma, pallor on elevation, dependent rubor, nail deformities, extensive callus and pitting edema. Visual exam results: Normal PEDAL PULSES: Includes palpation of dorsalis and posterior tibial pulses and signs/symptoms of vascular compromise like pain, pallor, parasthesia or paralysis. Present (even if diminished) SENSORY CHECK: Includes 10 gram Monofilament (Henlawson-Emil) test of sensation. Intact (Greater than or equal to 80% of sites checked) Abnormal (Less than 80% of sites checked): Abnormal (decreased or absent sensation to monofilament): Comment: Bilateral heels HIGH-RISK HIGH RISK FOOT EDUCATION: 1. Advised patient that extra depth footwear with soft molded inserts and braces may be required. 2. Advised patient not to walk barefoot. Instructed the patient to pay close attention to the style and fit of shoes. 3. Explained the importance of daily foot checks. Explained that loss of sensation leads to callouses. Callouses break down, which result in ulcers that may lead to gangrene and amputation. 4. Stressed the importance of daily foot hygiene. Warm (not hot) bathing of the feet, complete drying and thorough inspection for changes in the condition of the skin constitute daily foot care. Demonstrated how to do a thorough foot check. 5. Emphasized the use of clean, non-restrictive socks/stockings and well fitting shoes. 6. Stressed the importance of immediate follow-up of any foot injuries or ulcers. Explained that he/she should be non-weight bearing whenever there are lesions on the foot, to prevent cellular damage. Level of Understanding: Good Patient refused referral to Podiatry Palliative Care Provider: Palliative care is not clinically indicated at this time. /darwin/ Shell Lilly DNP, APRN, GARETH-Terry Primary Care Nurse Practitioner Signed: 07/09/2023 12:07 07/09/2023 ADDENDUM STATUS: COMPLETED Tagging pact pharmacist to place RTC. Patient requesting to have f/u for DM2 and HTN. Thank you! /halle Lilly DNP, APRN, GARETH-C Primary Care Nurse Practitioner Signed: 07/09/2023 12:08 Receipt Acknowledged By: * AWAITING SIGNATURE * LINDSEY CALDERON [facility]
--- OUTSIDE RECORDS SUMMARY | 2024-04-20 04:56 | XMS_ITS ---
Author Name [facility] [place] [facility] [place] Address [address] [place] [address] Care Team Providers Care Cost Analyst Name Role Phone SHAMA LILLY Primary Care [...] Nichols's Name Patient's Relationship to Policy Nichols [facility] Oct 29, 2012 Dec 27, 2026 [facility] [id number] [phone] ALEC MCCLELLAND PATIENT [facility] Oct 29, 2012 Dec 27, 2026 [facility] [id number] ALEC MCCLELLAND PATIENT Selected Encounter This section includes the information on record at [place] for the Encounter. Date/Time Encounter Type Encounter Description Reason Pro vider Source Oct 22, 2023 03:25 PM Outpatient Encounter ADMIN PAT ACTIVTIES (MASNONCT) IHE Encounter Template Text not used by [place] Plan of Treatment: Future Appointments (+ 6 [...] 20 appointments. The data comes from all [facility]. Appointment Date/Time Appointment Type Appointme nt Facility Name Oct 28, 2023 09:00 AM AMBULATORY - MEDICINE [facility] Dec 19, 2023 01:40 PM AMBULATORY - MEDICINE [facility] Dec 23, 2023 12:30 PM [facility]ORY - MEDICINE [facility] Apr 23, 2024 01:40 PM AMBULATORY - MEDICINE [facility] Lab Results: +/- 30 days of the encounter This section includes the Chemistry and Hematology Lab Results on record with [place] for the patient. Radiology Reports and Pathology Reports are provided separately, in subsequent sections. Lab Results This section contains the Chemistry/Hematology Results that were resulted 30 days before or 30 daysafter the date of the Encounter. Date/Time Source Result Type Result - Unit Interpretation Reference Range Comment Oct 28, 2023 09:42 AM [facility] MICRAL/CREAT PROFILE (STL) Specimen Type: URINE No comment entered. Ordering Provider: MABEL MURPHY Report Released Date/Time: Oct 28, 2023 09:22 AM Reporting Lab: [facility] [address] [facility] [address] Performing Lab: [facility] [address] [facility] [address] URINE ALBUMIN (PB-STL) 341.2 mg/L uACR (STL) 664 mg/g H 0-29 CREATININE URINE/OTHERS 51.4 mg/dL L 63-166 Oct 28, 2023 09:39 AM [facility] VITAMIN D, 25-HYDROXY Specimen Type: SERUM No comment entered. Ordering Provider: MABEL MURPHY Report Released Date/Time: Oct 28, 2023 09:22 AM Reporting Lab: [facility] [address] [facility] [address] Performing Lab: [facility] [address] [facility] [address] VITAMIN D, 25-HYDROXY 15.6 ng/mL L 30-96 Oct 28, 2023 09:39 AM [facility] PTH, INTACT (STL) Specimen Type: SERUM No comment entered. Ordering Provider: MABEL MURPHY Report Released Date/Time: Oct 28, 2023 09:22 AM Reporting Lab: [address] [address] Performing Lab: [address] [address] PTH, INTACT (STL) 57.70 pg/mL 8.7-77.7 Oct 28, 2023 09:39 AM [facility] RENAL PANEL Specimen Type: PLASMA Comment: No hemolysis noted. Ordering Provider: MABEL MURPHY Report Released Date/Time: Oct 28, 2023 09:22 AM Reporting Lab: [address] [address] Performing Lab: [address] [address] CREATININE 1.69 mg/dL H 0.7-1.3 UREA NITROGEN 18.6 mg/dL 9.0-25.0 GLUCOSE 160 mg/dL H 72-99 SODIUM 141 meq/L 136-145 POTASSIUM 4.0 meq/L 3.5-5 CHLORIDE 106 meq/L 98-107 CARBON DIOXIDE 25 meq/L 22-31 CALCIUM 10.0 mg/dL 8.4-10.4 PHOSPHOROUS 4.6 mg/dL 2.3-4.7 ALBUMIN 4.1 g/dL 3.4-5 EGFR (CKD-EPI 2020) 45.6 >60 Oct 28, 2023 09:39 AM [facility] CBC Specimen Type: BLOOD No comment entered. Ordering Provider: MABEL MURPHY Report Released Date/Time: Oct 28, 2023 09:22 AM Reporting Lab: [address] [address] Performing Lab: [address] [address] WBC 5.5 10*3/uL 3.6-11.2 RBC 5.42 10*6/uL [...] 10*3/uL 0.00-0.60 BASOPHILS, ABSOLUTE 0.03 10*3/uL 0.00-0.20 Social History: Smoking Status (Most current) and Tobacco Use (All prior to encounter date) This section includes the most current, and the historical, smoking and tobacco- related health factors from the [place] facility where the Encounter took place. Current Smoking Status This section includes the most current smoking, or tobacco-related health factor, from the [place] facility where the Encounter took place. Date/Time Current Smoking Status Comment Arnulfo chacko Jan 06, 2023 02:41 PM VA-TOBACCO NEVER USED [facility] Tobacco Use History This section includes a history of the smoking, or tobacco-related health factors, that were collected on or before the date of the Encounter. The data comes from the [place] facility where the Encounter took place. Date/Time Smoking Status/Tobacco Use Comment F acility Jul 06, 2019 01:16 AM ORYX ADMIT TOBACCO SCREEN NO [facility] Feb 16, 2019 10:39 PM ORYX ADMIT TOBACCO SCREEN NO [facility] Nov 20, 2015 11:29 AM CURRENT TOBACCO USER [facility] Nov 20, 2015 11:29 AM TOBACCO MEDS OFFER ED BUT DECLINED [facility] Dec 26, 2014 09:53 AM CURRENT TOBACCO USER [facility] Dec 26, 2014 09:53 AM TOBACCO MEDS OFFER ED BUT DECLINED [facility] Advance Directives: All historical and current Section Date Range: From patient's date of to the date document was created. This section includes ALL of a patient's completed or amended [place] Advance and Rescinded Directives. The entries below indicate that a directive exists for the patient, but an actual copy is not included with this document. The data comes from all [place] facilities. Date Advance Directives Provider Source Jul 06, 2019 ADVANCE DIRECTIVE DISCUSSION JJ REZA [facility] Encounter Notes: All associated encounter notes This section contains the clinical notes associated to the Encounter. Date/Time Encounter Note(s) Provider Source Oct 22, 2023 03:26 PM ADMINISTRATIVE NOT E: LOCAL TITLE: SCHEDULING NOTE STL STANDARD TITLE: ADMINISTRATIVE NOTE DATE OF NOTE: OCT 22, 2023@15:26 ENTRY DATE: OCT 22, 2023@15:26:57 AUTHOR: GARRICK MCGRATH COSIGNER: URGENCY: STATUS: COMPLETED Minimum Scheduling attempts to contact the [facility] have been made. RTC/Appt/Consult request will be discontinued after 14 days. Clinic: [facility] PACT 3 PCP CARLY: Dec First Call to [facility] - unsuccessful scheduling: Oct Unable to contact [facility], letter sent: Oct Discontinue date (14 calendar days after letter is mailed): Oct ADDITIONAL RESULTS FROM SCHEDULING ATTEMPTS: /darwin/ GARRICK MCGRATH ADVANCED BLOCK BREAKER Signed: 10/22/2023 15:28 GARRICK MCGRATH [facility] Oct 22, 2023 03:25 PM PHYSICIAN LETTERS: LOCAL TITLE: NO CONTACT LETTER STL STANDARD TITLE: PHYSICIAN LETTERS DATE OF NOTE: OCT 22, 2023@15:25 ENTRY DATE: OCT 22, 2023@15:25:55 AUTHOR: GARRICK MCGRATH COSIGNER: URGENCY: STATUS: COMPLETED [facility] [address] [place] [address] OCT 22, 2023 JAHAIRA MCCLELLAND [address] [place], [place] [id number] Dear Jahaira Mcclelland, Thank you for choosing the [facility] as your primary choice for health care. As a partner in your health care, we are attempting to contact you because we have been unsuccessful in reaching you by phone to schedule your clinic appointment. Please call us at [phone], extension [phone] to speak to us regarding making an appointment in the [facility] clinic. Your good health is important to [...] the clinic to inquire about scheduling. Sincerely, GARRICK MCGRATH ADVANCED BLOCK BREAKER JAHAIRA MCCLELLAND [facility]
--- OUTSIDE RECORDS SUMMARY | 2024-04-20 04:56 | XMS_ITS | Encounter Summary ---
Author Name [facility] [place] Address [address] [place] [address] Care Team Providers Care Habilitation Specialist Name Role Phone SHELL LILLY Primary Care [...] Nichols's Name Patient's Relationship to Policy Nichols [facility] Oct 29, 2012 Dec 27, 2026 [facility] [id number] [phone] MCCLELLANDALEC PATIENT [facility] Oct 29, 2012 Dec 27, 2026 [facility] [id number] [phone] ALEC MCCLELLAND PATIENT Selected Encounter This section includes the information on record at [place] for the Encounter. Date/Time Encounter Type Encounter Description Reason Provider Source Jun 25, 2023 09:30 AM OFFICE O/P EST MOD 30 MIN PULMONARY/CHEST ICD-10-CM J45.41 Moderate persistent asthma with (acute) exacerbation HERMAN RIVERA Encounter Template Text not used by [place] Assessments - Encounter Diagnoses This section includes the primary and secondary diagnoses documented for the Encounter. Date/Time Primary/Secondary Diagnosis Diagnosis Name Provider Source Jun 25, 2023 05:32 PM PRIMARY Moderate persistent asthma with (acute) exacerbation GINI RIVERA [facility] Jun 25, 2023 05:32 PM SECONDARY Acute cough GINI RIVERA [facility] Jun 25, 2023 05:32 PM SECONDARY Lack of physical exercise GINI RIVERA [facility] Jun 25, 2023 05:32 PM SECONDARY Morbid (severe) obesity due to excess calories GINI RIVERA [facility] Jun 25, 2023 05:32 PM SECONDARY Obesity, unspecified GINI RIVERA [facility] Jun 25, 2023 05:32 PM SECONDARY Obstructive sleep apnea (adult) (pediatric) GINI RIVERA [facility] Jun 25, 2023 05:32 PM SECONDARY Other nonspecific abnormal finding of lung field [facility] Plan of Treatment: Future Appointments (+ 6 months) and Future Tests (+/- 45 days) The Plan of Treatment section includes future care activities for the patient from all [facility]. This section includes future appointments and future orders which are active, pending or scheduled. Future Appointments This section includes appointments that were scheduled to occur 6 months from the date of the Encounter, up to a maximum of 20 appointments. The data comes from all [facility]. Appointment Date/Time Appointment Type Appointme nt Facility Name Jul 08, 2023 01:30 PM AMBULATORY - MEDICINE [facility] Jul 30, 2023 10:30 AM AMBULATORY - MEDICINE [facility] Sep 29, 2023 02:00 PM AMBULATORY - MEDICINE [facility] Oct 28, 2023 09:00 AM AMBULATORY - MEDICINE [facility] Dec 19, 2023 01:40 PM AMBULATORY - MEDICINE [facility] Dec 23, 2023 12:30 PM AMBULATORY - MEDICINE [facility] Active, Pending, and Scheduled Orders This section includes a listing of several types of active, pending, and scheduled orders, including clinic medications orders, diagnostic test orders, procedure orders and consult orders; where the start date of the order is 45 days before the date of the Encounter or 45 days after the date of theEncounter. The data comes from all [facility]. Test Date/Time Test Type Test Details Facility Name Jul 14, 2023 12:00 AM Laboratory - Chemi stry Order CBC BLOOD [facility] Jul 14, 2023 12:00 AM Laboratory - Chemi stry Order RENAL PANEL GREEN LI/HEP BLD/PLAS PLASMA [facility] Jul 14, 2023 12:00 AM Laboratory - Chemi stry Order VITAMIN D, 25-HYDROXY GOLD/RED SST SERUM [facility] Jul 14, 2023 12:00 AM Laboratory - Chemi stry Order PTH, INTACT (STL) RED/NO-GEL SERUM [facility] Jul 14, 2023 12:00 AM Laboratory - Chemi stry Order MICRAL/CREAT PROFILE (L) URINE YELLOW [facility] Jul 14, 2023 12:00 AM Laboratory - Chemi stry Order HGA1C BLOOD [facility] Jul 14, 2023 12:00 AM Laboratory - Chemi stry Order URIC ACID GREEN LI/HEP BLD/PLAS PLASMA [facility] Lab Results: +/- 30 days of [...] Range Comment Jun 25, 2023 10:55 AM [facility] CBC Specimen Type: BLOOD No comment entered. Ordering Provider: GINI RIVERA Report Released Date/Time: Jun 25, 2023 10:12 AM Reporting Lab: [facility] [address] [facility] [address] Performing Lab: [facility] [address] [facility] [address] WBC 5.7 10*3/uL 3.6-11.2 RBC 5.00 10*6/uL [...] 10*3/uL 0.00-0.20 Jun 25, 2023 10:[address] [facility] IMMUNOGLOBULIN E Specimen Type: SERUM Comment: Test Performed by [email or web address], [email or web address] Diagnostics [facility], [address] [place] [address] Shmuel Michaels M.D., Ph.D., Director of Laboratories , [place] [id number] Ordering Provider: GINI RIVERA Report Released Date/Time: Jun 25, 2023 10:12 AM Reporting Lab: [facility] [address] [facility] [address] Performing Lab: [facility] [address] [place] [address] IMMUNOGLOBULIN E 171 kU/L H <=114 Vital Signs: All taken on the encounter date This section contains inpatient and outpatient Vital Signs collected on the date of the Encounter. Date/Time Temperature Pulse Blood Pressure Respiratory Rate SP02 Pain Height Weight Body Mass Index Source Jun 25, 2023 09:32 AM 168/[address] [facility] Jun 25, 2023 09:32 AM 89 176/89 22 96 [address] [facility] Social History: Smoking Status (Most current) and Tobacco Use (All prior to encounter date) This section includes the most current, and the historical, smoking and tobacco- related health factors from the [place] facility where the Encounter took place. Current Smoking Status This section includes the most current smoking, or tobacco-related health factor, from the [place] facility where the Encounter took place. Date/Time Current Smoking Status Comment Arnulfo ity Jan 06, 2023 02:41 PM VA-TOBACCO NEVER USED [facility] Tobacco Use History This section includes a history of the smoking, or tobacco-related health factors, that were collected on or before the date of the Encounter. The data comes from the [place] facility where the Encounter took place. Date/Time Smoking Status/Tobacco Use Comment F acility Jul 06, 2019 01:16 AM ORYX ADMIT TOBACCO SCREEN NO [facility] Feb 16, 2019 10:39 PM ORYX ADMIT TOBACCO SCREEN NO [facility] Nov 20, 2015 11:29 AM CURRENT TOBACCO USER [facility] Nov 20, 2015 11:29 AM TOBACCO MEDS OFFER ED BUT DECLINED [facility] Dec 26, 2014 09:53 AM CURRENT TOBACCO USER [facility] Dec 26, 2014 09:53 AM TOBACCO MEDS OFFER ED BUT DECLINED [facility] Advance Directives: All historical and current Section Date Range: From patient's date of to the date document was created. This section includes ALL of a patient's completed or amended [place] Advance and Rescinded Directives. The entries below indicate that a directive exists for the patient, but an actual copy is not included with this document. The data comes from all [place] facilities. Date Advance Directives Provider Source Jul 06, 2019 ADVANCE DIRECTIVE DISCUSSION JJ REZA [facility] Radiology Reports: +/- 30 days of the [...] the Encounter. The data comes from all [place] treatment facilities. Date/Time Radiology Report Provider Source Jun 25, 2023 11:04 AM CHEST X-RAY, 2 VIE WS: JAHAIRA MCCLELLAND [id number] -1960 M Exm Date: JUN 25, 2023@11:04 Req Phys: BIANCA RIVERA Pat Loc: [facility]-PULMONARY [facility] (Req'g Img Loc: [facility]-MAIN RADIOLOGY SUITE Service: Unknown (Case [id number] COMPLETE) CHEST X-RAY, 2 VIEWS (RAD Detailed) CPT:16051 Reason for Study: cough Clinical History: asthma Report Status: Verified Date Reported: JUN 25, 2023 Date Verified: JUN 25, 2023 Web Marketing Strategist E-Sig:/ES/ADE BROWNE MD Report: Case #[id number]. Chest [...] ADE BROWNE MD, Staff Physician - Radiologist (Web Marketing Strategist) /ADE MORE [facility] Encounter Notes: All associated encounter notes This section contains the clinical notes associated to the Encounter. Date/Time Encounter Note(s) Provider Source Jun 25, 2023 09:41 AM PULMONARY OUTPATIE [place] NOTE: LOCAL TITLE: PULMONARY OUTPATIENT FOLLOW UP STL STANDARD TITLE: PULMONARY OUTPATIENT NOTE DATE OF NOTE: JUN 25, 2023@09:41 ENTRY DATE: JUN 25, 2023@09:41:42 AUTHOR: BIANCA RIVERA EXP COSIGNER: URGENCY: STATUS: COMPLETED PULMONARY OUTPATIENT FOLLOW UP ST[facility] Has ADDENDA 62 year old MALE for Pulmonary Clinic follow up visit on 06/25/23 09:30. CHIEF COMPLAINT 3 month follow up primarily for moderate persistent COPD/asthma, recent exacerbation s/p tx with Prednisone. HISTORY The patient is a very pleasant [...] 1.3-1.7, h/o prostate abscess. Mr. Mcclelland reports increased cough and wheezing for the past 3 weeks that was treated with short burst dose of Prednisone. He still endorses dry cough, nocturnal cough and wheezing. He reports increased daily phlegm. He denies hemoptysis, edema and fever/chill. His is with him and participate in conversation. He reports increased allergy symptoms manifested by rhinitis, itchy eyes. 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 13) Obstructive Sleep Apnea Syndrome ([facility] [id number]) 14) CHF - Congestive Heart Failure ([facility] [id number]) 15) Cough ([facility] [id number]) 16) Obesity ([facility] [id number]) 17) GERD - Gastro-Esophageal Reflux Disease ([facility] [id number]) 18) Chronic Kidney Disease Stage 3 ([facility] [id number]) 19) Gout 20) OA - Osteoarthritis ([facility] [id number]) IM - IMMUNIZATIONS ADMINISTERED Immunization Series Date Facility Reaction Info COVID-19 (MODERNA), MRNA, LNP-S,* 1 05/[facility] COVID-19 (MODERNA), MRNA, LNP-S,* 4 12/06/2021 [facility] <C> COVID-19 (MODERNA), MRNA, LNP-S,* 3 05/02/2021 [facility] <C> COVID-19 (MODERNA), MRNA, LNP-S,* 2 07/15/2020 [facility] <C> COVID-19 (MODERNA), MRNA, LNP-S,* 1 06/17/2020 [facility] <C> INFLUENZA, INJECTABLE, QUADRIVAL* 01/07/2023 [facility] INFLUENZA, INJECTABLE, QUADRIVAL* 01/13/2020 [facility] INFLUENZA, INJECTABLE, QUADRIVAL* 02/24/2019 [facility] INFLUENZA, UNSPECIFIED FORMULATI* No Site INFLUENZA, UNSPECIFIED FORMULATI* Per pt martini* <C> PNEUMOCOCCAL CONJUGATE PCV 13 C 12/27/2020 [facility] PNEUMOCOCCAL POLYSACCHARIDE PPV23 C 12/06/2021 [facility] TDAP 06/27/2017 [facility]* <C> ZOSTER RECOMBINANT 2 12/06/2021 [facility] ZOSTER RECOMBINANT 1 12/27/2020 [facility] CONTRAINDICATED No data available REFUSED ======= No data available ACTIVE OUTPATIENT MEDICATIONS Active Outpatient Medications (including Supplies): Active Outpatient Medications Status 1) ACCU-CHEK GUIDE (GLUCOSE) TEST STRIP USE 1 STRIP FOR ACTIVE BLOOD TEST FOUR TIMES A DAY 2) ALBUTEROL 90MCG (CFC-F) 200D ORAL INHL INHALE 2 PUFFS ACTIVE BY ORAL INHALATION FOUR TIMES A DAY NEEDED SHAKE WELL. RINSE MOUTHPIECE FREQUENTLY TO PREVENT CLOGGING. 3) ALBUTEROL SO4 0.083% INHL 3ML INHALE 1 VIAL ACTIVE (2.5MG/3ML) BY NEBULIZATION EVERY 6 HOURS DIRECTED NEEDED FOR EXERCISE-INDUCED BRONCHOSPASM 4) ATORVASTATIN CALCIUM 80MG TAB TAKE ONE-HALF TABLET BY ACTIVE MOUTH EVERY EVENING FOR CHOLESTEROL. REPORT ANY UNEXPLAINED MUSCLE PAIN/WEAKNESS TO PROVIDER. 5) CARVEDILOL 12.5MG TAB TAKE ONE-HALF TABLET BY MOUTH ACTIVE TWICE A DAY TAKE WITH FOOD. 6) EMPAGLIFLOZIN 25MG TAB TAKE ONE-HALF TABLET BY MOUTH ACTIVE ONCE A DAY 7) FORMOTEROL 5/MOMETASONE 200MCG 120D INHL INHALE [...] MOUTH ACTIVE EVERY EVENING FOR ASTHMA 13) OMEPRAZOLE 10MG EC CAP TAKE ONE CAPSULE BY MOUTH ONCE ACTIVE A DAY FOR GASTROESOPHAGEAL REFLUX DISEASE TAKE 30 MINUTES PRIOR TO FOOD. 14) SPIRONOLACTONE 25MG TAB TAKE ONE TABLET BY MOUTH ONCE ACTIVE A DAY 15) TIOTROPIUM 2.5MCG/ACTUAT 60D ORAL INHL INHALE 2 ACTIVE INHALATIONS BY ORAL INHALATION ONCE A DAY FOR COPD (ADMINISTER AT SAME TIME EACH DAY) 16) TOPIRAMATE 50MG TAB TAKE ONE TABLET BY MOUTH TWICE A ACTIVE DAY FOR MIGRAINE PROPHYLAXIS 17) TORSEMIDE 20MG TAB TAKE TWO TABLETS BY MOUTH TWICE A ACTIVE DAY FOR FLUID RETENTION (EDEMA) (TAKE IN MORNING AND AFTERNOON) Active Non-VA Medications Status 1) Non-VA AMLODIPINE BESYLATE 10MG TAB 10MG BY MOUTH ACTIVE ONCE A DAY 2) Non-VA ASPIRIN 81MG CHEW TAB 81MG BY MOUTH ONCE A DAY ACTIVE 3) Non-VA TAMSULOSIN HCL 0.4MG CAP 0.4MG BY MOUTH ONCE A ACTIVE DAY 20 Total Medications MEDICATION NOTES Dulera 2 puffs BID Albuterol MDI 2 times daily for SOB Albuterol nebulizer rare Spiriva 2 puffs daily Albuterol nebulizer 2 times a day Cetirizine OTC, doesn't use Singulair daily Famotidine BID, not sure if using ALLERGIES METFORMIN PHYSICAL EXAMINATION Vital Signs: Temperature: 98.2 F [36.8 C] (04/01/2023 10:16) Blood Pressure: 168/87 (06/25/2023 09:32) Pulse: 89 (06/25/2023 09:32) Respirations: 22 (06/25/2023 09:32) Pain: 4 (06/25/2023 09:32) multiple joints Patient Height:68 in [172.7 cm] (06/25/2023 09:32) Patient Weight:277.1 lb. [125.69 kg] (06/25/2023 09:32) BMI: 42.2 O2 saturation: 96% (06/25/2023 09:32) on RA General: NAD, breathing comfortably at rest on room air, obese, well developed. HEENT: No trauma, normal conjunctiva, ears, nasal mucosa, sinus palpation, and pharynx, PERRL, Neck: Supple, trachea midline, no JVD, thyromegaly, adenopathy. Heart: S1S2, regular rhythm without murmur, rub, gallop, no edema bilaterally, pulses 2+/rad Lungs: Scattered wheezing with forced expiration. Abdomen: Bowel sounds present, soft, not distended, not tender, no hepatosplenomegaly. Extremities: Good pulses, no clubbing, cyanosis, edema. Skin: No rashes or lesions. MSK: normal gait, MESA Neurologic: AoX4, responds appropriately, MARTHA, CN II-XII grossly intact . SELECTED RESULTS REVIEWED CXR now Labs now IMPRESSION/RECOMMENDATIONS 1. Asthma, exacerbation 04/2023, no relief of acute cough and wheezing after short burst dose of Prednisone. -- We discuss his respiratory problem and our approach to management. -- Start Prednisone taper dose. -- Stop Dulera and Spiriva. -- Start Alvesco and Stolto. Review new medication regimen. Written chart given. Discuss side effects. -- May use Alvesco TID if needed. -- CXR now to r/o pneumonia. -- Labs: CBC, IgE now. -- Continue Singulair. 2. Chronic rhinitis, worse now. -- Continue Nasacort and Cetirizine OTC. [...] tolerated 7. GERD/heartburn, no sx. RTC in 1 mo. Plan of care has been discussed [...] any additional problems occur after this appointment. Azeem Gomez - please note abnormal findings on most recent CBC. Patient will see you on 07/08/2023. /darwin/ CHAN العلي PULMONARY ANP Signed: 06/25/2023 22:18 Receipt Acknowledged By: 07/07/2023 22:20 /darwin/ Shell Lilly DNP, EVAPORATOR SUPERVISOR, ERISA ATTORNEY-C Primary Care Nurse Practitioner 06/26/2023 17:27 /darwin/ JF BOWERS MD, MPH Interventional Pulmonology 06/26/2023 ADDENDUM STATUS: COMPLETED I was unable to make contact with to discuss CXR. Left message. /darwin/ BIANCA DEMIDENKO, ANP PULMONARY ANP Signed: 06/26/2023 17:46 BIANCA RIVERA [facility]
--- OUTSIDE RECORDS SUMMARY | 2024-04-20 04:56 | XMS_ITS | Encounter Summary ---
Author Name [facility] [place] Address [address] [place] [address] Care Team Providers Care Rn Documentation Specialist Name Role Phone SHAMA LILLY Primary Care [...] Nichols's Name Patient's Relationship to Policy Nichols [facility] Oct 29, 2012 Dec 27, 2026 [facility] [id number] [phone] ALEC MCCLELLAND PATIENT OPTUM RX [facility] Oct 29, 2012 Dec 27, 2026 [facility] [id number] [phone] ALEC MCCLELLAND PATIENT Selected Encounter This section includes the information on record at [place] for the Encounter. Date/Time Encounter Type Encounter Description Reason Provider Source Jul 10, 2023 12:12 PM Outpatient Encounter TELEPHONE [facility] Encounter Template Text not used by [place] [...] 20 appointments. The data comes from all [facility]. Appointment Date/Time Appointment Type Appointme nt Facility Name Jul 30, 2023 10:30 AM AMBULATORY - MEDICINE [facility] Sep 29, 2023 02:00 PM AMBULATORY - MEDICINE [facility] Oct 28, 2023 09:00 AM AMBULATORY - MEDICINE [facility] Dec 19, 2023 01:40 PM AMBULATORY - MEDICINE [facility] Dec 23, 2023 12:30 PM AMBULATORY MEDICINE [facility] Active, Pending, and Scheduled Orders This section includes a listing of several types of active, pending, and scheduled orders, including clinic medications orders, diagnostic test orders, procedure orders and consult orders; where the start date of the order is 45 days before the date of the Encounter or 45 days after the date of theEncounter. The data comes from all [facility]. Test Date/Time Test Type Test Details Facility Name Jul 14, 2023 12:00 AM Laboratory - Chemi stry Order CBC BLOOD [facility] Jul 14, 2023 12:00 AM Laboratory - Chemi stry Order RENAL PANEL GREEN LI/HEP BLD/PLAS PLASMA [facility] Jul 14, 2023 12:00 AM Laboratory - Chemi stry Order VITAMIN D, 25-HYDROXY GOLD/RED SST SERUM SP [facility] Jul 14, 2023 12:00 AM Laboratory - Chemi stry Order PTH, INTACT (STL) RED/NO-GEL SERUM SP [facility] Jul 14, 2023 12:00 AM Laboratory - Chemi stry Order MICRAL/CREAT PROFILE (STL) URINE YELLOW [facility] Jul 14, 2023 12:00 AM Laboratory - Chemi stry Order HGA1C BLOOD [facility] Jul 14, 2023 12:00 AM Laboratory - Chemi stry Order URIC ACID GREEN LI/HEP BLD/PLAS PLASMA [facility] Lab Results: +/- 30 days [...] Range Comment Jun 25, 2023 10:55 AM [facility] CBC Specimen Type: BLOOD No comment entered. Ordering Provider: GINI RIVERA Report Released Date/Time: Jun 25, 2023 10:12 AM Reporting Lab: [facility] [address] [facility] [address] Performing Lab: [facility] [address] [facility] [address] WBC 5.7 10*3/uL 3.6-11.2 RBC 5.00 10*6/uL [...] 0.00-0.20 Jun 25, 2023 10:55 AM [facility] IMMUNOGLOBULIN E Specimen Type: SERUM Comment: Test Performed by [facility], [employer] Diagnostics [facility], [address] [facility], [place], [place] Shumel Michaels M.D., Ph.D., Director of Laboratories , [place] [id number] Ordering Provider: GINI RIVERA Report Released Date/Time: Jun 25, 2023 10:12 AM Reporting Lab: [facility] [address] [facility] [address] Performing Lab: [facility] [address] [facility] [address] IMMUNOGLOBULIN E 171 kU/L H <=114 Social [...] 06, 2023 02:41 PM VA-TOBACCO NEVER USED [facility] Tobacco Use History This section includes a history of the smoking, or tobacco-related health factors, that were collected on or before the date of the Encounter. The data comes from the [place] facility where the Encounter took place. Date/Time Smoking Status/Tobacco Use Comment F acility Jul 06, 2019 01:16 AM ORYX ADMIT TOBACCO SCREEN NO [facility] Feb 16, 2019 10:39 PM ORYX ADMIT TOBACCO SCREEN NO [facility] Nov 20, 2015 11:29 AM CURRENT TOBACCO USER [facility] Nov 20, 2015 11:29 AM TOBACCO MEDS OFFER ED BUT DECLINED [facility] Dec 26, 2014 09:53 AM CURRENT TOBACCO USER [facility] Dec 26, 2014 09:53 AM TOBACCO MEDS OFFER ED BUT DECLINED [facility] Advance Directives: All historical and [...] 06, 2019 ADVANCE DIRECTIVE DISCUSSION LIBIAJJ VENTURA [facility] Radiology Reports: +/- 30 days of [...] the Encounter. The data comes from all [facility] facilities. Date/Time Radiology Report Provider Source Jun 25, 2023 11:04 AM CHEST X-RAY, 2 VIE WS: JAHAIRA MCCLELLAND [id number] -1960 M Exm Date: JUN 25, 2023@11:04 Req Phys: BIANCA RIVERA Loc: -PULMONARY DEMIDENKO (Req'g Img Loc: -MAIN RADIOLOGY SUITE Service: Unknown (Case [id number] COMPLETE) CHEST X-RAY, 2 VIEWS (RAD Detailed) CPT:51954 Reason for Study: cough Clinical History: asthma Report Status: Verified Date Reported: JUN 25, 2023 Date Verified: JUN 25, 2023 Indirect Fire Infantryman E-Sig:/ES/ADE BROWNE MD Report: Case #[id number]. Chest [...] ADE BROWNE MD, Staff Physician - Radiologist (Indirect Fire Infantryman) /ADE MORE [facility] Encounter Notes: All associated encounter notes This section contains the clinical notes associated to the Encounter. Date/Time Encounter Note(s) Provider Source Jul 10, 2023 12:17 PM ADMINISTRATIVE NOT E: LOCAL TITLE: SCHEDULING NOTE STL STANDARD TITLE: ADMINISTRATIVE NOTE DATE OF NOTE: JUL 10, 2023@12:17 ENTRY DATE: JUL 10, 2023@12:18:17 AUTHOR: EDWINA FAUST EXP COSIGNER: URGENCY: STATUS: COMPLETED Minimum Scheduling attempts to contact the [facility] have been made. RTC/Appt/Consult request will be discontinued after 14 days. Clinic: [facility] PACT PHONE PHARM CARLY: Jul First Call to [facility] - unsuccessful scheduling: Jun Unable to contact [facility], letter sent: Jun Discontinue date (14 calendar days after letter is mailed): Jul Additional comments: Left vm for rtn call ADDITIONAL RESULTS FROM SCHEDULING ATTEMPTS: /darwin/ EDWINA FAUST ADVANCED GRAIN UNLOADER MACHINE Signed: 07/10/2023 12:22 [facility] Jul 10, 2023 12:12 PM PHYSICIAN LETTERS: LOCAL TITLE: NO CONTACT LETTER [facility] STANDARD TITLE: PHYSICIAN LETTERS DATE OF NOTE: JUL 10, 2023@12:12 ENTRY DATE: JUL 10, 2023@12:12:44 AUTHOR: EDWINA FAUST EXP COSIGNER: URGENCY: STATUS: COMPLETED [facility] [address] [place] [phone] JUL 10, 2023 JAHA[address]ALND [address] [place], [place] [phone] Dear Jahaira Mcclelland, Thank you for choosing the [facility] as your primary choice for health care. As a partner in your health care, we are attempting to contact you because we have been unsuccessful in reaching you by phone to schedule your clinic appointment. Please call us at [phone], extension OPT 2/3 to speak to us regarding making an appointment in the [facility] PACT PHONE PHAR clinic. Your good health is important to [...] the clinic to inquire about scheduling. Sincerely, EDWINA FAUST ADVANCED GRAIN UNLOADER MACHINE JAHAIRA MCCLELLAND,EDWINA Gann [facility]
--- OUTSIDE RECORDS SUMMARY | 2024-04-20 04:57 | XMS_ITS ---
Author Name [facility] [facility] [place] Address [address] [place] [address] Care Team Providers Care Script Supervisor Name Role Phone SHAMA LILLY Primary [...] Nichols's Name Patient's Relationship to Policy Nichols [facility] Oct 29, 2012 Dec 27, 2026 [facility] [id number] [phone] ALEC MCCLELLAND PATIENT [facility] Oct 29, 2012 Dec 27, 2026 [facility] [id number] ALEC MCCLELLAND PATIENT Selected Encounter This section includes the information on record at [place] for the Encounter. Date/Time Encounter Type Encounter Description Reason Pro vider Source Dec 24, 2023 11:23 AM Outpatient Encounter ADMIN PAT ACTIVTIES (MASNONCT) IHE Encounter Template Text not used by [place] Plan of Treatment: Future Appointments (+ 6 [...] 20 appointments. The data comes from all [place] treatment facilities. Appointment Date/Time Appointment Type Appointme nt Facility Name Apr 23, 2024 01:40 PM AMBULATORY - MEDICINE [facility] Lab Results: +/- 30 days of the encounter This section includes the Chemistry and Hematology Lab Results on record with [place] for the patient. Radiology Reports and Pathology Reports are provided separately, in subsequent sections. Lab Results This section contains the Chemistry/Hematology Results that were resulted 30 days before or 30 daysafter the date of the Encounter. Date/Time Source Result Type Result - Unit Interpretation Reference Range Comment Dec 23, 2023 01:05 PM [facility] TSH (MA-PB) Specimen Type: SERUM Comment: The listed sex of this patient may not be a typical indication for this test. Therefore, reference ranges or interpretive criteria listed may not be valid. Clinical correlation suggested. Ordering Provider: SHAMA LILLY Report Released Date/Time: Dec 23, 2023 12:37 PM Reporting Lab: [address] [address] Performing Lab: [address] [address] TSH 1.531 u[IU]/mL 0.47-5 Dec 23, 2023 01:05 PM [facility] LIPID PANEL (STL) Specimen Type: PLASMA No comment entered. Ordering Provider: SHAMA LILLY Report Released Date/Time: Dec 23, 2023 12:37 PM Reporting Lab: [address] [address] Performing Lab: [address] [address] CHOLESTEROL 106 mg/dL 0-200 TRIGLYCERIDE 197 mg/dL H 0-150 CALCULATED LDL 41 mg/dL HDL(New) 26 mg/dL L >40 Dec 23, 2023 01:05 PM [facility] PROST. SPECIFIC AG.(PB-STL) Specimen Type: SERUM Comment: The listed sex of this patient may not be a typical indication for this test. Therefore, reference ranges or interpretive criteria listed may not be valid. Clinical correlation suggested. Ordering Provider: SHAMA LILLY Report Released Date/Time: Dec 23, 2023 12:37 PM Reporting Lab: [facility] [address] Performing Lab: [address] [address] PROST. SPECIFIC AG.(PB-STL) 1.504 ng/mL 0-4 Dec 23, 2023 01:05 PM [facility] HGA1C Specimen Type: BLOOD No comment entered. Ordering Provider: SHAMA LILLY Report Released Date/Time: Dec 23, 2023 12:37 PM Reporting Lab: [address] [address] Performing Lab: [place] [id number] HGA1C 7.9 H 4.0-6.0 Dec 23, 2023 01:05 PM [facility] URIC ACID Specimen Type: PLASMA No comment entered. Ordering Provider: SHAMA LILLY Report Released Date/Time: Dec 23, 2023 12:37 PM Reporting Lab: [address] [address] Performing Lab: [address] [address] URIC ACID 7.7 mg/dL H 3.5-7.2 Dec 23, 2023 01:05 PM [facility] URINALYSIS (STL-PB) Specimen Type: URINE Comment: High concentrations of glucose and protein affect specific gravity. Therefore, specific gravity is corrected using the concentrations of glucose and protein obtained from test strip measurement. Very high concentrations of glucose (>1000 mg/dL) or protein (>600 mg/dL) in the urine may affect the reliability of the specific gravity results. Clinical correlation is suggested. Ordering Provider: SHAMA LILLY Report Released Date/Time: Dec 23, 2023 12:37 PM Reporting Lab: [facility] [address] [facility] [address] Performing Lab: [facility] [address] [facility] [address] URINE COLOR Light-Yellow Yellow U.BILIRUBIN Negative mg/dL Negative U.PH 6.5 5.0-8.0 URINE WBC/HPF 2 /[HPF] 0-5 URINE RBC/HPF 1 /[HPF] 0-5 APPEARANCE Clear Clear U.NITRITE Negative mg/dL Negative BACTERIA RARE /[HPF] Negative SQUAMOUS EPITH. 1 /[HPF] 0-5 URN.GLUCOSE > mg/dL H Negative URN.PROTEIN 100 mg/dL H Negative-20 URN.UROBILINOG EN Normal mg/dL Normal URN.BLOOD Negative mg/dL Negat pascual-Tr sandeep URN.KETONES Negative mg/dL Neg ative-Tr sandeep URN.LEUK.EST. Negative mg/dL N egative-Tr sandeep URN.SPECIFIC GRAVITY 1.026 1.005-1.029 Social History: Smoking Status (Most current) and Tobacco Use (All prior to encounter date) This section includes the most current, and the historical, smoking and tobacco- related health factors from the [place] facility where the Encounter took place. Current Smoking Status This section includes the most current smoking, or tobacco-related health factor, from the [place] facility where the Encounter took place. Date/Time Current Smoking Status Comment Arnulfo chacko Jan 06, 2023 02:41 PM VA-TOBACCO NEVER USED [facility] Tobacco Use History This section includes a history of the smoking, or tobacco-related health factors, that were collected on or before the date of the Encounter. The data comes from the [place] facility where the Encounter took place. Date/Time Smoking Status/Tobacco Use Comment F acility Jul 06, 2019 01:16 AM ORYX ADMIT TOBACCO SCREEN NO [facility] Feb 16, 2019 10:39 PM ORYX ADMIT TOBACCO SCREEN NO [facility] Nov 20, 2015 11:29 AM CURRENT TOBACCO USER [facility] Nov 20, 2015 11:29 AM TOBACCO MEDS OFFER ED BUT DECLINED [facility] Dec 26, 2014 09:53 AM CURRENT TOBACCO USER [facility] Dec 26, 2014 09:53 AM TOBACCO MEDS OFFER ED BUT DECLINED [facility] Advance Directives: All historical and current Section Date Range: From patient's date of to the date document was created. This section includes ALL of a patient's completed or amended [place] Advance and Rescinded Directives. The entries below indicate that a directive exists for the patient, but an actual copy is not included with this document. The data comes from all [place] facilities. Date Advance Directives Provider Source Jul 06, 2019 ADVANCE DIRECTIVE DISCUSSION JJ REZA [facility] Encounter Notes: All associated encounter notes This section contains the clinical notes associated to the Encounter. Date/Time Encounter Note(s) Provider Source Dec 24, 2023 11:23 AM PHYSICIAN LETTERS: LOCAL TITLE: NO CONTACT LETTER ST STANDARD TITLE: PHYSICIAN LETTERS DATE OF NOTE: DEC 24, 2023@11:23 ENTRY DATE: DEC 24, 2023@11:23:35 AUTHOR: ART ALVARADO COSIGNER: URGENCY: STATUS: COMPLETED [facility] [address] [place] [address] DEC 24, 2023 JAHAIRA MCCLELLAND [address] [place] [address] Dear Jahaira Mcclelland, Thank you for choosing the [facility] as your primary choice for health care. As a partner in your health care, we are attempting to contact you because we have been unsuccessful in reaching you by phone to schedule your clinic appointment. Please call us at [phone], extension [phone] to speak to us regarding making an appointment in the CLINICAL PHARMACY clinic. Your good health is important to [...] the clinic to inquire about scheduling. Sincerely, ART ALVARADO TRICOT KNITTING MACHINE OPERATOR JAHAIRA MCCLELLAND ALICIA A [facility]
--- OUTSIDE RECORDS SUMMARY | 2024-04-20 04:57 | XMS_ITS ---
Author Name [facility] [facility] [place] [facility] [place] Address [address] [place] [address] Care Team Providers Care Dramatic Critic Name Role Phone SHELL LILLY Primary Care [...] Nichols's Name Patient's Relationship to Policy Nichols [facility] Oct 29, 2012 Dec 27, 2026 [facility] [id number] [phone] ALEC MCCLELLAND PATIENT OPTUM RX [facility] Oct 29, 2012 Dec 27, 2026 [facility] [id number] 54 ALEC MCCLELLAND PATIENT Selected Encounter This section includes the information on record at [place] for the Encounter. Date/Time Encounter Type Encounter Description Reason Provider Source Oct 28, 2023 09:00 AM OFFICE O/P EST MOD 30 MIN RENAL/NEPHROL(EXCE PT DIALYSIS) ICD-10-CM N18.31 Chronic kidney disease, stage 3a MARCELA MURPHY Encounter Template Text not used by [place] Assessments - Encounter Diagnoses This section includes the primary and secondary diagnoses documented for the Encounter. Date/Time Primary/Secondary Diagnosis Diagnosis Name Provider Source Oct 28, 2023 09:24 AM PRIMARY Chronic kidney disease, stage 3a MARCELA MURPHY [facility] Oct 28, 2023 09:24 AM SECONDARY Essential (primary) hypertension JEFFREYMARCELA April [facility] Oct 28, 2023 09:24 AM SECONDARY Vitamin D deficiency, unspecified [facility] Plan of Treatment: Future Appointments (+ 6 months) and Future Tests (+/- 45 days) The Plan of Treatment section includes future care activities for the patient [facility] [place] [facility] This section includes future appointments and future orders which are active, pending or scheduled. Future Appointments This section includes appointments that were scheduled to occur 6 months from the date of the Encounter, up to a maximum of 20 appointments. The data comes from all [place] treatment facilities. Appointment Date/Time Appointment Type Appointme nt Facility Name Dec 19, 2023 01:40 PM AMBULATORY - MEDICINE [facility] Dec 23, 2023 12:30 PM AMBULATORY - MEDICINE [facility] Apr 23, 2024 01:40 PM AMBULATORY - MEDICINE [facility] Lab Results: +/- 30 days [...] Range Comment Oct 28, 2023 09:42 AM [facility] MICRAL/CREAT PROFILE (STL) Specimen Type: URINE No comment entered. Ordering Provider: MABEL MURPHY Report Released Date/Time: Oct 28, 2023 09:22 AM Reporting Lab: [facility] [address] [facility] [address] Performing Lab: [place] [id number] [facility] [address] URINE ALBUMIN (PB-STL) 341.2 mg/L uACR (STL) 664 mg/g H 0-29 CREATININE URINE/OTHERS 51.4 mg/dL L 63-166 Oct 28, 2023 09:39 AM [facility] PTH, INTACT (STL) Specimen Type: SERUM No comment entered. Ordering Provider: MABEL MURPHY Report Released Date/Time: Oct 28, 2023 09:22 AM Reporting Lab: [address] [address] Performing Lab: [address] [address] PTH, INTACT (STL) 57.70 pg/mL 8.7-77.7 Oct 28, 2023 09:39 AM [facility] VITAMIN D, 25-HYDROXY Specimen Type: SERUM No comment entered. Ordering Provider: MABEL MURPHY Report Released Date/Time: Oct 28, 2023 09:22 AM Reporting Lab: [address] [address] Performing Lab: [address] [address] VITAMIN D, 25-HYDROXY 15.6 ng/mL L 30-96 Oct 28, 2023 09:39 AM [facility] RENAL PANEL Specimen Type: PLASMA Comment: No hemolysis noted. Ordering Provider: MABEL MURPHY Report Released Date/Time: Oct 28, 2023 09:22 AM Reporting Lab: [address] [address] Performing Lab: [address] [address] CREATININE 1.69 mg/dL H 0.7-1.3 UREA NITROGEN 18.6 mg/dL 9.0-25.0 GLUCOSE 160 mg/dL H 72-99 SODIUM 141 meq/L 136-145 POTASSIUM 4.0 meq/L 3.5-5 CHLORIDE 106 meq/L 98-107 CARBON DIOXIDE 25 meq/L 22-31 CALCIUM 10.0 mg/dL 8.4-10.4 PHOSPHOROUS 4.6 mg/dL 2.3-4.7 ALBUMIN 4.1 g/dL 3.4-5 EGFR (CKD-EPI 2020) 45.6 >60 Oct 28, 2023 09:39 AM [facility] CBC Specimen Type: BLOOD No comment entered. Ordering Provider: MABEL MURPHY Report Released Date/Time: Oct 28, 2023 09:22 AM Reporting Lab: [facility] [address] [facility] [address] Performing Lab: [facility] [address] [facility] [address] WBC 5.5 10*3/uL 3.6-11.2 RBC 5.42 10*6/uL [...] Pain Height Weight Body Mass Index Source Oct 28, 2023 09:12 AM 169/70 [facility] Oct 28, 2023 09:12 AM 98.4 69 159/74 20 95 0 68 277.9 42 [facility] Social History: Smoking Status (Most current) [...] 06, 2023 02:41 PM VA-TOBACCO NEVER USED [facility] Tobacco Use History This section includes a history of the smoking, or tobacco-related health factors, that were collected on or before the date of the Encounter. The data comes from the [place] facility where the Encounter took place. Date/Time Smoking Status/Tobacco Use Comment F acility Jul 06, 2019 01:16 AM ORYX ADMIT TOBACCO SCREEN NO [facility] Feb 16, 2019 10:39 PM ORYX ADMIT TOBACCO SCREEN NO [facility] Nov 20, 2015 11:29 AM CURRENT TOBACCO USER [facility] Nov 20, 2015 11:29 AM TOBACCO MEDS OFFER ED BUT DECLINED [facility] Dec 26, 2014 09:53 AM CURRENT TOBACCO USER [facility] Dec 26, 2014 09:53 AM TOBACCO MEDS OFFER ED BUT DECLINED [facility] Advance Directives: All historical and current [...] 06, 2019 ADVANCE DIRECTIVE DISCUSSION JJ REZA [facility] Encounter Notes: All associated encounter notes This section contains the clinical notes associated to the Encounter. Date/Time Encounter Note(s) Provider Source Oct 29, 2023 10:11 AM PHYSICIAN LETTERS: LOCAL TITLE: TEST RESULT NEPHROLOGY LETTER ST STANDARD TITLE: PHYSICIAN LETTERS DATE OF NOTE: OCT 29, 2023@10:11 ENTRY DATE: OCT 29, 2023@10:11:59 AUTHOR: BRENDA MURPHY EXP COSIGNER: URGENCY: STATUS: COMPLETED [facility] [address] [place] [address] OCT 29, 2023 JAHAIRA ZAVALAR [address] [place], [place] [id number] Dear Mr. Jahaira Mcclelland, I tried to call you with your lab results - but there was no answer, there was a voicemail message but the mailbox was full so i could not leave a message so I am sending you a test result letter. BASIC METABOLIC PANEL: SODIUM 141 mEq/L 10/28/2023 09:39 POTASSIUM 4.0 mEq/L 10/28/2023 09:39 CHLORIDE 106 mEq/L 10/28/2023 09:39 UREA NITROGEN 18.6 mg/dL 10/28/2023 09:39 CREATININE 1.69 H mg/dL 10/28/2023 09:39 CALCIUM 10.0 mg/dL 10/28/2023 09:39 CARBON DIOXIDE 25 mEq/L 10/28/2023 09:39 GLUCOSE 160 H mg/dL 10/28/2023 09:39 EGFR (CKD-EPI 2020) 45.6 10/28/2023 09:39 Test results Your kidney function is relatively about asael same - your Creatinine(measure of kidney function) has ranged from 1.4-1.8 - you continue to have chronic kidney disease - mild/moderate impairment. THe fluctuations in your kidney function likely have to do with your use of diuretics (water pills) and what your fluid status is in relation to when you get your labs done. ALBUMIN: ALBUMIN 4.1 g/dL 10/28/2023 09:39 Test results are within normal limits. PHOSPHORUS: PHOSPHOROUS 4.6 mg/dL 10/28/2023 09:39 Test results are within normal limits. CBC: WBC 5.5 10*3/uL 10/28/2023 09:39 RBC 5.42 10*6/uL 10/28/2023 09:39 HGB 13.5 g/dL 10/28/2023 09:39 HCT 43.5 % 10/28/2023 09:39 MCV 80.3 fL 10/28/2023 09:39 MCH 24.9 L pg 10/28/2023 09:39 MCHC 31.0 L g/dL 10/28/2023 09:39 RDW 16.8 H % 10/28/2023 09:39 PLT 176 10*3/uL 10/28/2023 09:39 MPV 11.8 H fL 10/28/2023 09:39 NEUTROPHILS, AUTO % 58 % 10/28/2023 09:39 LYMPHOCYTES, AUTO % 28 % 10/28/2023 09:39 MONOCYTES, AUTO % 9 % 10/28/2023 09:39 EOSINOPHILS, AUTO % 4 % 10/28/2023 09:39 BASOPHILS, AUTO % 1 % 10/28/2023 09:39 IMMATURE GRANS, AUTO % 0.5 % 12/06/2021 10:54 NEUTROPHILS, ABSOLUTE 3.19 10*3/uL 10/28/2023 09:39 LYMPHOCYTES, ABSOLUTE 1.55 10*3/uL 10/28/2023 09:39 MONOCYTES, ABSOLUTE 0.52 10*3/uL 10/28/2023 09:39 EOSINOPHILS, ABSOLUTE 0.20 10*3/uL 10/28/2023 09:39 BASOPHILS, ABSOLUTE 0.03 10*3/uL 10/28/2023 09:39 IMMATURE GRANS, AUTO ABS 0.03 10*3/uL 12/06/2021 10:54 Test results are within normal limits. VITAMIN D, 25-HYDROXY: VITAMIN D, 25-HYDROXY 15.6 L ng/mL 10/28/2023 09:39 Test results Your vitamin D is low but improving slowly I don't see a vitamin D supplement on your list - are you taking an over the counter vitamin D supplement? Oct 28, 2023@09:42 Test name Result units Ref. range Site Code uACR (STL) 664 H mg/g 0 - 29 [657] CREATININE URINE/OTHERS 51.4 L mg/dL 63 - 166 [657] URINE ALBUMIN (PB-STL) 341.2 You do have a large amount of protein in the urine - this is less compared to last check which is good we do not want a lot of protein in the urine. The valsartan you are an the empagaflozin are good medications to decrease protein in the urine. PTH PTH/INTACT LABEL Collection DT Specimen Test Name Result Units Ref Range 10/28/2023 09:39 SERUM PTH, INTACT (STL) 57.70 pg/mL 8.7 - 77.7 Test results are within normal limits. Follow up plan:You have an appt to see me in July - I have ordered labs to be done a few days prior to your appt. Please call [phone] if you have any questions. Sincerely, BRENDA MURPHY Nephrology Attending JAHAIRA MCCLELLAND [facility] Oct 28, 2023 09:06 AM NEPHROLOGY OUTPATIENT NOTE: LOCAL TITLE: NEPHROLOGY OUTPATIENT FOLLOW UP [facility] STANDARD TITLE: NEPHROLOGY OUTPATIENT NOTE DATE OF NOTE: OCT 28, 2023@09:06 ENTRY DATE: OCT 28, 2023@09:06:27 AUTHOR: BRENDA MURPHY EXP COSIGNER: URGENCY: STATUS: COMPLETED NEPHROLOGY OUTPATIENT FOLLOW UP [facility] Has ADDENDA RENAL CLINIC FOLLOW-UP NOTE Subjective: 62 year old male with HFrEF, DM-2, HTN, chronic prostatitis, nephrotlithiasis here for follow up of CKD. Patient was last seen in renal clinic 01/21/23 since that time no recent ER visits or hospitalizations. Denies any kidney stones issues since last visit. Denies any infective symptoms- had brief self-limited episodes of diarrhea a few weeks ago thinks maybe food related. In terms of urination denies any dysuria, hematuria. Weight is up and down - 270-280 - on empagaflozin 12.5 mg daily, spironolactone 25 mg daily,and torsemide 40 mg bid - wears compression stockign if feet swell up. Reports checking bp intermittnetly - SBp 130-160's Review of chart shows decreased eGFR since 2019 has ranged Cr 1.3-1.6 most recently 1.3. UA's wtih dipstick positive protein and positive blood, urien Pr quantifiction previously wtih microalbuminuria/macroalbuminu ge most recently decreased. SBP ranging mid 130's to 150's; blood sugars - 120's sometimes 240's PMHx/PSHx: HTN since 2013 DM-2 x 2013 always been on insulin Chronic prostatitis Prostatic abscess 02/18/19 splenic hemangioma biopsy 2000 cardiac surgery (congenital heart defect; hole closure) 1991 right femur fracture open reduction internal fixation Nephrolithiasis - calcium oxalate LITTLE on CPAP HFrEF (EF 40-45%) GERD Outpatient Medications: Active Outpatient Medications (including Supplies): Active Outpatient Medications Status 1) ALBUTEROL 90MCG (CFC-F) 200D ORAL INHL INHALE 2 PUFFS ACTIVE ORAL INHALATION FOUR TIMES A DAY NEEDED FOR EXERCISE-INDUCED BRONCHOSPASM SHAKE WELL. RINSE MOUTHPIECE FREQUENTLY TO PREVENT [...] TIMES A DAY FOR BLOOD PRESSURE 9) INSULIN,ASPART(EQV-NOVLG)100UN /ML FLXPEN INJECT 16 ACTIVE UNITS UNDER THE [...] ANY OPEN CARTRIDGE AFTER 28 DAYS. 11) MONTELUKAST NA 10MG TAB TAKE ONE TABLET BY MOUTH ACTIVE EVERY EVENING FOR ASTHMA 12) OLODATEROL/TIOTROP 2.5MCG/ACTUAT 60D INH INHALE 2 ACTIVE PUFFS ORAL INHALATION ONCE A DAY FOR ASTHMA ADMINISTER AT SAME TIME EACH DAY 13) SPIRONOLACTONE 25MG TAB TAKE ONE TABLET BY MOUTH ONCE ACTIVE A DAY 14) TOPIRAMATE 50MG TAB TAKE ONE TABLET BY MOUTH TWICE A ACTIVE DAY FOR MIGRAINE PROPHYLAXIS 15) VALSARTAN 160MG TAB TAKE ONE TABLET BY MOUTH TWICE A ACTIVE DAY TO LOWER BLOOD PRESSURE Active Non-VA Medications Status 1) Non-VA ASPIRIN 81MG CHEW TAB 81MG BY MOUTH ONCE A DAY ACTIVE 16 Total Medications Physical exam: Temperature: 97.6 F [36.4 C] (09/29/2023 13:14) Blood Pressure: 165/75 (09/29/2023 13:16) Pulse: 83 (09/29/2023 13:14) Respirations: 16 (09/29/2023 13:14) Gen:aloert, NAD HEENT:NCAT Neck:supple Lungs:CTAB CV:normal S1, S2, RRR Abd:non-tender Ext:wearin compression stockings Lab Data: CBC: WBC 5.7 10*3/uL 06/25/2023 10:55 RBC [...] GRANS, AUTO ABS 0.03 10*3/uL 12/06/2021 10:54 Renal Function Panel: SODIUM 141 mEq/L 04/01/2023 11:52 POTASSIUM 3.4 L mEq/L 04/01/2023 11:52 CHLORIDE 106 mEq/L 04/01/2023 11:52 UREA NITROGEN 14.2 mg/dL 04/01/2023 11:52 CREATININE 1.37 H mg/dL 04/01/2023 11:52 CALCIUM 8.7 mg/dL 04/01/2023 11:52 CARBON DIOXIDE 25 mEq/L 04/01/2023 11:52 GLUCOSE 206 H mg/dL 04/01/2023 11:52 EGFR (CKD-EPI 2020) 58.7 04/01/2023 11:52 ALBUMIN 4.1 g/dL 01/21/2023 10:06 PHOSPHOROUS 2.5 mg/dL 01/21/2023 10:06 Intact PTH:146.5 VITAMIN D, 25-HYDROXY 14.4 L ng/mL 01/21/2023 10:06 Urine Studies: URINE COLOR Colorless 01/21/2023 10:04 APPEARANCE Clear 01/21/2023 10:04 U.PH 7.5 01/21/2023 10:04 U.BILIRUBIN Negative mg/dL 01/21/2023 10:04 U.NITRITE Negative mg/dL 01/21/2023 10:04 URINE RBC/HPF 4 /HPF 01/21/2023 10:04 URINE WBC/HPF <1 /HPF 01/21/2023 10:04 SQUAMOUS EPITH. <1 /HPF 01/21/2023 10:04 CREATuF: 69.0 (01/21/23 10:06) M/CREAT: 880 (01/21/23 10:06) MICRAL: 607.5 (01/21/23 10:06) Imaging: Renal Ultrasound 08/13/21: FINDINGS: Right kidney: 11.0 x 7.2 x 5.5 cm. Left kidney: 10.3 x 5.5 x 4.3 cm. The renal echotexture is within normal limits bilaterally. A 6 x 3 mm calculus is seen in the left mid of the kidney. There is no evidence of hydronephrosis. No solid renal masses are seen. The bladder has a normal configuration. No bladder calculi are identified. There is a incidental finding of hyperechoic mass in the spleen measuring approximately 10.2 x 9.5 x 9.5 cm. Retrospectively, this can be seen on the prior MRI performed 02/17/2019 and measured 9.7 x 9 x 9.5 cm at that time. Impression: 1. Nonobstructive left renal calculus measuring 6 mm. 2. Hyperechoic splenic mass measuring up to 10.2 cm, not significantly changed from prior MRI. This is favored to represent a benign process such as hemangioma. Assessment/Recommendations:62 year old male with HFrEF, DM-2, HTN, chronic prostatitis, nephrotlithiasis here for follow up of CKD. #CKD Stage IIIB A2 - pt with risk factors of DM-2/HTN - previously not well controlled; hemoglboin a1c improving, BP control moderate - check renal panel and Pr quantification - on valsartan and empagflozin - renal US with small kidney stone in left #HTN - per patient up and down - high in clinci today - currently on valsartan 160 mg bid, vero 25 mg daily, empagaflozin 12.5 mg daily, carvedilol 6.25 mg bid, hydralazine 100 mg tid, , torsemide 40 mg bid - will have clinic RN call in two weeks for bp readings in 2 weeks #Seconadary hyperparathyroidims - f/u vitamin D and iPTH today #Dispo - f/u labs - RTC 69 months with repeat labwork For PCP - pt requesting prescription for test strips - he is almost out and prescription has /darwin/ BRENDA MURPHY Nephrology Attending Signed: 10/28/2023 09:24 Receipt Acknowledged By: 10/28/2023 10:20 /darwin/ Shell Lilly DNP, APRN, MAGY Primary Care Nurse Practitioner 10/28/2023 11:20 /es/ MAILE HANSON REGISTERED NURSE 10/28/2023 ADDENDUM STATUS: COMPLETED The above supply has been renewed. Thank you. /darwin/ Shell Lilly DNP, APRN, MAGY Primary Care Nurse Practitioner Signed: 10/28/2023 10:21 11/13/2023 ADDENDUM STATUS: COMPLETED called vet to obtain bp readings- no answer, vm full. /darwin/ MAILE HANSON REGISTERED NURSE Signed: 11/13/2023 16:21 11/19/2023 ADDENDUM STATUS: COMPLETED called to obtain bp readings. no answer/vm full /halle HANSON REGISTERED NURSE Signed: 11/19/2023 12:42 BRENDA MURPHY [facility]
--- OUTSIDE RECORDS SUMMARY | 2024-04-20 04:57 | XMS_ITS ---
Author Name [facility] [facility] [place] [facility] [place] Address [address] [place] [address] Care Team Providers Care Income Tax Administrator Name Role Phone SHAMA LILLY Primary Care [...] Nichols's Name Patient's Relationship to Policy Nichols [facility] Oct 29, 2012 Dec 27, 2026 [facility] [id number] [phone] ALEC MCCLELLAND PATIENT [facility] Oct 29, 2012 Dec 27, 2026 [facility] [id number] ALEC MCCLELLAND PATIENT Selected Encounter This section includes the information on record at [place] for the Encounter. Date/Time Encounter Type Encounter Description Reason Pro vider Source Dec 25, 2023 10:48 AM Outpatient Encounter ADMIN PAT ACTIVTIES (MASNONCT) IHE Encounter Template Text not used by [place] Plan of Treatment: Future Appointments (+ 6 [...] 20 appointments. The data comes from all [facility] facilities. Appointment Date/Time Appointment Type Appointme nt Facility Name Apr 23, 2024 01:40 PM AMBULATORY - MEDICINE [facility] Jun 23, 2024 10:30 AM AMBULATORY MEDICINE [facility] Lab Results: +/- 30 days of the [...] Range Comment Dec 23, 2023 01:05 PM [facility] LIPID PANEL (STL) Specimen Type: PLASMA No comment entered. Ordering Provider: SHAMA LILLY Report Released Date/Time: Dec 23, 2023 12:37 PM Reporting Lab: [facility] [address] [facility] [address] Performing Lab: [address] [address] CHOLESTEROL 106 mg/dL 0-200 TRIGLYCERIDE 197 mg/dL H 0-150 CALCULATED LDL 41 mg/dL HDL(New) 26 mg/dL L >40 Dec 23, 2023 01:05 PM [facility] TSH (MA-PB) Specimen Type: SERUM Comment: The listed sex of this patient may not be a typical indication for this test. Therefore, reference ranges or interpretive criteria listed may not be valid. Clinical correlation suggested. Ordering Provider: SHAMA LILLY Report Released Date/Time: Dec 23, 2023 12:37 PM Reporting Lab: [facility] [address] [facility] [address] Performing Lab: [address] [address] TSH 1.531 u[IU]/mL 0.47-5 Dec 23, 2023 01:05 PM [facility] HGA1C Specimen Type: BLOOD No comment entered. Ordering Provider: SHAMA LILLY Report Released Date/Time: Dec 23, 2023 12:37 PM Reporting Lab: [place] [address] Performing Lab: [place] [address] HGA1C 7.9 H 4.0-6.0 Dec 23, 2023 01:05 PM [facility] PROST. SPECIFIC AG.(PB-STL) Specimen Type: SERUM Comment: The listed sex of this patient may not be a typical indication for this test. Therefore, reference ranges or interpretive criteria listed may not be valid. Clinical correlation suggested. Ordering Provider: SHAMA LILLY Report Released Date/Time: Dec 23, 2023 12:37 PM Reporting Lab: [place] [address] Performing Lab: [place] [address] PROST. SPECIFIC AG.(PB-STL) 1.504 ng/mL 0-4 Dec 23, 2023 01:05 PM [facility] URIC ACID Specimen Type: PLASMA No comment entered. Ordering Provider: SHAMA LILLY Report Released Date/Time: Dec 23, 2023 12:37 PM Reporting Lab: [place] [address] Performing Lab: [place] [address] URIC ACID 7.7 mg/dL H 3.5-7.2 Dec 23, 2023 01:05 PM [facility] URINALYSIS (STL-PB) Specimen Type: URINE Comment: High [...] Dec 23, 2023 12:37 PM Reporting Lab: [facility] [address] [facility] [address] Performing Lab: [facility] [address] [facility] [address] URINE COLOR Light-Yellow Yellow U.BILIRUBIN Negative mg/dL [...] 06, 2023 02:41 PM VA-TOBACCO NEVER USED [facility] Tobacco Use History This section includes a history of the smoking, or tobacco-related health factors, that were collected on or before the date of the Encounter. The data comes from the [place] facility where the Encounter took place. Date/Time Smoking Status/Tobacco Use Comment F acility Jul 06, 2019 01:16 AM ORYX ADMIT TOBACCO SCREEN NO [facility] Feb 16, 2019 10:39 PM ORYX ADMIT TOBACCO SCREEN NO [facility] Nov 20, 2015 11:29 AM CURRENT TOBACCO USER [facility] Nov 20, 2015 11:29 AM TOBACCO MEDS OFFER ED BUT DECLINED [facility] Dec 26, 2014 09:53 AM CURRENT TOBACCO USER [facility] Dec 26, 2014 09:53 AM TOBACCO MEDS OFFER ED BUT DECLINED [facility] Advance Directives: All historical and [...] 06, 2019 ADVANCE DIRECTIVE DISCUSSION JJ REZA [facility] Encounter Notes: All associated encounter notes This section contains the clinical notes associated to the Encounter. Date/Time Encounter Note(s) Provider Source Dec 25, 2023 10:50 AM ADMINISTRATIVE NOT E: LOCAL TITLE: SCHEDULING NOTE STL STANDARD TITLE: ADMINISTRATIVE NOTE DATE OF NOTE: DEC 25, 2023@10:50 ENTRY DATE: DEC 25, 2023@10:50:07 AUTHOR: DARION TAVERA EXP COSIGNER: URGENCY: STATUS: COMPLETED Minimum Scheduling attempts to contact the [facility] have been made. RTC/Appt/Consult request will be discontinued after 14 days. Clinic: [facility] phone [phone] pcp CARLY: 12/25/2023 First Call to - unsuccessful schedulin12/25/2023 Unable to contact , letter sent: 12/25/2023 Discontinue date (14 calendar days after letter is mailed): 01/08/2024 ADDITIONAL RESULTS FROM SCHEDULING ATTEMPTS: /halle TAVERA AMSA Signed: 12/25/2023 10:51 DARION TAVERA [facility] Dec 25, 2023 10:48 AM PHYSICIAN LETTERS: LOCAL TITLE: NO CONTACT LETTER STL STANDARD TITLE: PHYSICIAN LETTERS DATE OF NOTE: DEC 25, 2023@10:48 ENTRY DATE: DEC 25, 2023@10:49:34 AUTHOR: DARION TAVERA EXP COSIGNER: URGENCY: STATUS: COMPLETED [facility] [address] [place] [address] DEC 25, 2023 JAHAIRA MCCLELLAND [address] [place] [address] Dear Jahaira Mcclelland, Thank you for choosing the [facility] as your primary choice for health care. As a partner in your health care, we are attempting to contact you because we have been unsuccessful in reaching you by phone to schedule your clinic appointment. Please call us at [phone], extension [phone] to speak to us regarding making an appointment in the [facility]. Your good health is important to us. Please contact us within 2 weeks from the date of this letter. If we do not hear from you, we will notify your referring provider and a new referral will be required to schedule an appointment. IMPORTANT: Due to COVID-19 we have greatly expanded our telehealth options, please contact the clinic to inquire about scheduling. Sincerely, DARION MCCLELLAND,DARION COKER [facility]
--- OUTSIDE RECORDS SUMMARY | 2024-04-20 04:57 | XMS_ITS | Encounter Summary ---
Author Name [facility] [facility] [place] Address [address] [place] [address] Care Team Providers Care Counseling Psychologist Name Role Phone SHELL LILLY Primary Care [...] Nichols's Name Patient's Relationship to Policy Nichols [facility] Oct 29, 2012 Dec 27, 2026 [facility] [id number] [phone] ALEC MCCLELLAND PATIENT OPTUM RX [facility] Oct 29, 2012 Dec 27, 2026 [facility] [id number] [phone] ALEC MCCLELLAND PATIENT Selected Encounter This section includes the information on record at [place] for the Encounter. Date/Time Encounter Type Encounter Description Reason Provider Source Dec 23, 2023 12:30 PM OFFICE O/P EST MOD 30 MIN PRIMARY CARE/MEDICINE ICD-10-CM I50.9 Heart failure, unspecified SHELL LILLY Encounter Template Text not used by [place] Assessments - Encounter Diagnoses This section includes the primary and secondary diagnoses documented for the Encounter. Date/Time Primary/Secondary Diagnosis Diagnosis Name Provider Source Dec 23, 2023 12:47 PM PRIMARY Heart failure, unspecified SHELL LILLY [facility] Dec 23, 2023 12:47 PM SECONDARY Chronic kidney disease, stage 3a SHELL LILLY [facility] Dec 23, 2023 12:47 PM SECONDARY Chronic obstructive pulmonary disease, unspecified SHELL LILLY [facility] Dec 23, 2023 12:47 PM SECONDARY Encounter for immunization TATOVITAANASTASIYA Terry JANICE [facility] Dec 23, 2023 12:47 PM SECONDARY Essential (primary) hypertension SHELL LILLY [facility] Dec 23, 2023 12:47 PM SECONDARY Gastro-esophageal reflux disease without esophagitis SHELL LILLY [facility] Dec 23, 2023 12:47 PM SECONDARY Gout, unspecified SHELL LILLY J[facility] Dec 23, 2023 12:47 PM SECONDARY Headache, unspecified SHELL LILLY [facility] Dec 23, 2023 12:47 PM SECONDARY Hyperlipidemia, unspecified SHELL LILLY J[facility]ICE [facility] Dec 23, 2023 12:47 PM SECONDARY Obesity, unspecified SHELL LILLY J[facility] Dec 23, 2023 12:47 PM SECONDARY Obstructive sleep apnea (adult) (pediatric) SHELL LILLY [facility] Dec 23, 2023 12:47 PM SECONDARY Other asthma SHELL LILLY [facility] Dec 23, 2023 12:47 PM SECONDARY Type 2 diabetes mellitus without complications SHELL LILLY [facility] Dec 23, 2023 12:47 PM SECONDARY Vitamin D deficiency, unspecified SHELL LILLY [facility] Plan of Treatment: Future Appointments (+ 6 months) and Future Tests (+/- 45 days) The Plan of Treatment section includes future care activities for the patient from all [place] treatmentfacilities. This section includes future appointments and future orders which are active, pending or scheduled. Future Appointments This section includes appointments that were scheduled to occur 6 months from the date of the Encounter, up to a maximum of 20 appointments. The data comes from all [place] treatment facilities. Appointment Date/Time Appointment Type Appointme nt Facility Name Apr 23, 2024 01:40 PM AMBULATORY - MEDICINE [facility] Lab Results: +/- 30 days of [...] Range Comment Dec 23, 2023 01:05 PM [facility] TSH (MA-PB) Specimen Type: SERUM Comment: The listed sex of this patient may not be a typical indication for this test. Therefore, reference ranges or interpretive criteria listed may not be valid. Clinical correlation suggested. Ordering Provider: SHELL LILLY Report Released Date/Time: Dec 23, 2023 12:37 PM Reporting Lab: [address] [phone] Performing Lab: [facility] [address] [phone] TSH 1.531 u[IU]/mL 0.47-5 Dec 23, 2023 01:05 PM [facility] PROST. SPECIFIC AG.(PB-STL) Specimen Type: SERUM Comment: The listed sex of this patient may not be a typical indication for this test. Therefore, reference ranges or interpretive criteria listed may not be valid. Clinical correlation suggested. Ordering Provider: SHELL LILLY Report Released Date/Time: Dec 23, 2023 12:37 PM Reporting Lab: [facility] [address] [facility] [phone] Performing Lab: [facility] [address] [facility] [phone] PROST. SPECIFIC AG.(PB-STL) 1.504 ng/mL 0-4 Dec 23, 2023 01:05 PM [facility] URIC ACID Specimen Type: PLASMA No comment entered. Ordering Provider: SHELL LILLY Report Released Date/Time: Dec 23, 2023 12:37 PM Reporting Lab: [facility] [address] [place] [phone] Performing Lab: [address] [phone] URIC ACID 7.7 mg/dL H 3.5-7.2 Dec 23, 2023 01:05 PM [facility] LIPID PANEL (STL) Specimen Type: PLASMA No comment entered. Ordering Provider: SHELL LILLY Report Released Date/Time: Dec 23, 2023 12:37 PM Reporting Lab: [address] [phone] Performing Lab: [address] [phone] CHOLESTEROL 106 mg/dL 0-200 TRIGLYCERIDE 197 mg/dL H 0-150 CALCULATED LDL 41 mg/dL HDL(New) 26 mg/dL L >40 Dec 23, 2023 01:05 PM [facility] HGA1C Specimen Type: BLOOD No comment entered. Ordering Provider: SHELL LILLY Report Released Date/Time: Dec 23, 2023 12:37 PM Reporting Lab: [address] [phone] Performing Lab: [address] [phone] HGA1C 7.9 H 4.0-6.0 Dec 23, 2023 01:05 PM [facility] URINALYSIS (STL-PB) Specimen Type: URINE Comment: High concentrations of glucose and protein affect specific gravity. Therefore, specific gravity is corrected using the concentrations of glucose and protein obtained from test strip measurement. Very high concentrations of glucose (>1000 mg/dL) or protein (>600 mg/dL) in the urine may affect the reliability of the specific gravity results. Clinical correlation is suggested. Ordering Provider: SHELL LILLY Report Released Date/Time: Dec 23, 2023 12:37 PM Reporting Lab: [address] [phone] Performing Lab: [address] [address] URINE COLOR Light-Yellow Yellow U.BILIRUBIN Negative mg/dL Negative U.PH 6.5 5.0-8.0 URINE WBC/HPF 2 /[HPF] 0-5 URINE RBC/HPF 1 /[HPF] 0-5 APPEARANCE Clear Clear U.NITRITE Negative mg/dL Negative BACTERIA RARE /[HPF] Negative SQUAMOUS EPITH. 1 /[HPF] 0-5 URN.GLUCOSE > mg/dL H Negative URN.PROTEIN 100 mg/dL H Negative-20 URN.UROBILINOG EN Normal mg/dL Normal URN.BLOOD Negative mg/dL Negat pascual-Tr antonio URN.KETONES Negative mg/dL Neg ative-Tr antonio URN.LEUK.EST. Negative mg/dL N egative-Tr antonio URN.SPECIFIC GRAVITY 1.026 1.005-1.029 Vital Signs: All taken on the encounter date This section contains inpatient and outpatient Vital Signs collected on the date of the Encounter. Date/Time Temperature Pulse Blood Pressure Respiratory Rate SP02 Pain Height Weight Body Mass Index Source Dec 23, 2023 12:40 PM 166/77 [facility] Dec 23, 2023 12:07 PM 171/81 [facility] Dec 23, 2023 12:07 PM 98.7 76 196/92 20 96 0 274.8 42 [facility] Immunizations: All administered on the encounter date This section contains immunizations associated to the Encounter. Immunization Series Date Issued Reaction Comments INFLUENZA, SPLIT VIRUS, TRIVALENT, PF Dec 22 024 Social History: Smoking Status (Most current) and Tobacco Use (All prior to encounter date) This section includes the most current, and the historical, smoking and tobacco- related health factors from the [place] facility where the Encounter took place. Current Smoking Status This section includes the most current smoking, or tobacco-related health factor, from the [place] facility where the Encounter took place. Date/Time Current Smoking Status Comment Facil ity Dec 23, 2023 12:30 PM VA-TOBACCO FORMER USER [facility] Tobacco Use History This section includes a history of the smoking, or tobacco-related health factors, that were collected on or before the date of the Encounter. The data comes from the [place] facility where the Encounter took place. Date/Time Smoking Status/Tobacco Use Comment F acility Dec 23, 2023 12:30 PM [place]-TOBACCO QUIT 15 YRS OR MORE [facility] Jul 13, 2021 08:30 AM VA-TOBACCO FORMER USER [facility] Jul 13, 2021 08:30 AM VA-TOBACCO QUIT 1 TO < 5 YRS [facility] Jun 30, 2020 02:00 PM VA-TOBACCO FORMER USER [facility] Jun 30, 2020 02:00 PM VA-TOBACCO QUIT 15 YRS OR MORE [facility] May 24, 2020 08:30 AM VA-TOBACCO FORMER USER [facility] May 24, 2020 08:30 AM VA-TOBACCO QUIT 1 TO < 5 YRS [facility] May 07, 2019 11:29 AM TOBACCO OFFERED PT MEDS (PROVIDER) [facility] Advance Directives: All historical and current Section Date Range: From patient's date of to the date document was created. This section includes ALL of a patient's completed or amended [place] Advance and Rescinded Directives. The entries below indicate that a directive exists for the patient, but an actual copy is not included with this document. The data comes from all [place] facilities. Date Advance Directives Provider Source Jul 06, 2019 ADVANCE DIRECTIVE DISCUSSION JJ REZA [facility] Encounter Notes: All associated encounter notes This section contains the clinical notes associated to the Encounter. Date/Time Encounter Note(s) Provider Source Dec 31, 2023 01:42 PM PHYSICIAN LETTERS: LOCAL TITLE: TEST RESULT GENERAL LETTER STL STANDARD TITLE: PHYSICIAN LETTERS DATE OF NOTE: DEC 31, 2023@13:42 ENTRY DATE: DEC 31, 2023@13:42:53 AUTHOR: SHELL LILLY EXP COSIGNER: URGENCY: STATUS: COMPLETED [facility] [address] [place] [address] DEC 31, 2023 JAHAIRA MCCLELLAND [address] [place] [place] [phone] Dear Jahaira Mcclelland, I would like to update you on your recent test results. Please share these readings with your private providers to manage your care for further evaluation and/or management. LIPID PROFILE - High cholesterol and triglycerides (lipids) are risk factors for heart disease. Your cholesterol should fall between 140 and 200, and your triglycerides levels should be less than or equal to 150. HDL is the good cholesterol and should ideally be greater than 40. LDL is the bad cholesterol and optimal levels should be less than 100 (near optimal is between 100 and 129). TRIGLYCERIDE 197 H mg/dL 12/23/2023 13:05 CHOLESTEROL 106 mg/dL 12/23/2023 13:05 HDL(New) 26 L mg/dL 12/23/2023 13:05 CALCULATED LDL 41 mg/dL 12/23/2023 13:05 These results are abnormal. -HDL's (high-density lipoproteins) and LDL's (low-density lipoproteins) transport cholesterol in your blood. LDLs carry cholesterol into your cells and HDLs carry it away and dispose of it in the liver, having a protective effect on your circulatory system. -HDL is good cholesterol and should be above 50. -LDL is bad cholesterol and should be less than 100 for most people including diabetics and less than 70 for people with heart disease. This level is the most important predictor of heart disease in a cholesterol panel. -Triglycerides (TG) are fatty compounds that are a combination of three (tri) fatty acids and glycerin. Body fat is made up of mostly stored triglycerides. -Triglycerides are another type of fat in the blood and should be less than 150. -Total cholesterol should be less than 200. You can improve these values by changing your diet and exercise regimen. Please review the following recommendations: -Incorporate 30-minutes of exercise with walking 5 days per week. Increasing your physical activity can help with weight management and improve your cholesterol levels. -Carefully review nutrition labels. Decrease intake of saturated fats or trans-fats. Monitor your salt intake. -Reduce your intake of sugars such as cake or candy. Additional hidden sugars are found foods such as pastries, breads, and pasta. Monitor your intake of these items as well and try not to consume on a daily basis. -Increase your intake of fresh or frozen fruits and vegetables which is preferred over canned or processed items. Canned foods have high amounts of sugar and salt. -Low fat dairy products are encouraged. -Leaner meats such as chicken or fish can have less fat that beef or pork. HEMOGLOBIN A1C - Gives us information about your diabetes (sugar or glucose) control over the past 3 months. Your target is to keep your A1C below 7 %. HGA1C 7.9 H % 12/23/2023 13:05 These results are abnormal. Continue to check blood sugars as recommended. Reduce the intake of sugary foods/beverages as well as eliminate regular soda. Monitor the frequency and portion sizes of pasta, bread, cereal, potatoes, white rice etc. Eat more whole grains including whole grain breads and pasta when possible. PSA - Prostate-specific antigen is a protein produced by cells of the prostate gland. The PSA test measures the level of PSA in the blood. PSA PROST. SPECIFIC AG.(PB-STL) 1.504 ng/mL 12/23/2023 13:05 These readings are within normal limits. TSH - Thyroid-stimulating hormone (also known as TSH or thyrotropin) is a peptide hormone synthesized and secreted by thyrotrope cells in the anterior pituitary gland, which regulates the endocrine function of the thyroid gland. TSH 1.531 uIU/mL 12/23/2023 13:05 These readings are within normal limits. URINALYSIS - A urinalysis (or UA ) is an array of tests performed on urine and one of the most common methods of medical diagnosis. URINALYSIS URINE COLOR Light-Yellow 12/23/2023 13:05 APPEARANCE Clear 12/23/2023 13:05 U.PH 6.5 12/23/2023 13:05 U.BILIRUBIN Negative mg/dL 12/23/2023 13:05 U.NITRITE Negative mg/dL 12/23/2023 13:05 URINE RBC/HPF 1 /HPF 12/23/2023 13:05 URINE WBC/HPF 2 /HPF 12/23/2023 13:05 BACTERIA RARE /HPF 12/23/2023 13:05 SQUAMOUS EPITH. 1 /HPF 12/23/2023 13:05 These readings are within normal limits. URIC ACID GREEN LI/HEP BLD/PLAS PLASMA SP LB #[id number] Collection time: Dec 23, 2023@13:05 URIC ACID 7.7 H mg/dL 3.5 - 7.2 These readings are abnormal. It is recommended to have adherence to Allopurinol. PLAN If you have any questions please call your case liner. I look forward to seeing you at your next clinic appointment. Thank you for choosing the [facility] for your healthcare. FUTURE APPOINTMENTS: 06/23/2024 10:30 [facility] CLR PACT 3 PCP 07/19/2024 12:20 [facility] SHIEH Sincerely, Shell Lilly DNP, APPLICATION RELEASE MANAGER, [employer]ERS[employer] WORKER-C Primary Care Nurse Practitioner JAHAIRA MCCLELLAND,SHELL MCKEE [facility] Dec 23, 2023 12:12 PM NURSING NOTE: LOCAL TITLE: V15 PACT FACE TO FACE NOTE STL STANDARD TITLE: NURSING NOTE DATE OF NOTE: DEC 23, 2023@12:12 ENTRY DATE: DEC 23, 2023@12:12:49 AUTHOR: ANASTASIYA GIBSON EXP COSIGNER: URGENCY: STATUS: COMPLETED Provider Visit: Patient Identifiers : Full Name Date of Reason for visit: Established Follow-Up Patient states he is here for a routine visit/refill on medications. Mode of Arrival: Ambulatory Allergy Review: METFORMIN Allergy list reviewed and remains current. Recent Vital Signs: Temperature: 98.7 F [37.1 C] (12/23/2023 12:07) Pulse: 76 (12/23/2023 12:07) Respiration: 20 (12/23/2023 12:07) B/P: 171/81 (12/23/2023 12:07) Pain: 0 (12/23/2023 12:07) Wt: 274.8 lb [124.65 kg] (12/23/2023 12:07) Ht: 68 in [172.7 cm] (10/28/2023 09:12) BMI: 41.9 POX: 96% (12/23/2023 12:07) Would you like to discuss any personal problem, family problem, alcohol use, drug use, or a mental or emotional illness? No [facility] ([facility]), please select appointment type: [place] Video Connect (VVC) - Are you registered for [facility]? No- Are you interested in getting this done? No Contact provided Primary Care phone number and encouraged to call if any questions or concerns. Review that after hours nurse line [phone] and emergency room are available 04/11 for patient use. Contact verbalized good understanding. Suicide Screen: C-SSRS Screening Cavalier-Suicide Severity Rating Scale (C-SSRS Screener) 1. Over the past month, have you wished you were or wished you could go to sleep and not wake up? No 2. Over the past month, have you had any actual thoughts of killing yourself? No 3. Over the past month, have you been thinking about how you might do this? Response not required due to responses to other questions. 4. Over the past month, have you had these thoughts and had some intention of acting on them? Response not required due to responses to other questions. 5. Over the past month, have you started to work out or worked out the details of how to kill yourself? Response not required due to responses to other questions. 6. If yes, at any time in the past month did you intend to carry out this plan? Response not required due to responses to other questions. 7. In your lifetime, have you ever done anything, started to do anything, or prepared to do anything to end your life (for example, collected pills, obtained a gun, gave away valuables, went to the roof but didn't jump)? No 8. If YES, was this within the past 3 months? Response not required due to responses to other questions. Sexual Orientation: The patient thinks of their sexual orientation as: Straight or Heterosexual Alcohol Use Screen (AUDIT-C): Alcohol Screen: SCREEN FOR ALCOHOL (AUDIT-C) An alcohol screening test (AUDIT-C) was negative (score=0). 1. How often did you have a drink containing alcohol in the past year? Consider a drink to be a 12 ounce can or bottle of regular beer, 8 ounces of malt liquor, a 5 ounce glass of table wine, or a 1.5 ounce shot of liquor (like scotch, gin, or vodka). Never 2. How many drinks containing alcohol did you have on a typical day when you were drinking in the past year? Response not required due to responses to other questions. 3. How often did you have six or more drinks on one occasion in the past year? Response not required due to responses to other questions. Tobacco Use Screening: The patient is a former tobacco user. The patient quit fifteen or more years ago. Influenza Immunization: Influenza, Trivalent, Preservative Free (Fluarix-Syringe) Administered: INFLUENZA, SPLIT VIRUS, TRIVALENT, PF Date Administered: Dec 23, 2023 12:16 Dredgemaster: Dreamise Lot: [id number] Exp Date: Oct 11, 2024 [facility]: [id number] Admin Route/Site: INTRAMUSCULAR/RIGHT DELTOID Dosage: 0.5mL Vaccine Information Statement(s): INFLUENZA(FLU) VACC(INACTIVATED OR RECOMBINANT)VIS Nov 17, 2020 ([facility]) Order By: Shell Lilly Administered By: Anastasiya Gibson The Influenza Vaccine Information Statement (VIS) was reviewed with the patient/caregiver which lists the benefits and risks of the vaccine and the risks of not receiving the Influenza vaccine. The patient/caregiver denied any prior severe reaction to this vaccine or its components or a severe allergic reaction, such as anaphylaxis, to any vaccine or any injectable therapy. The patient/caregiver gave verbal consent to receive the vaccine. /darwin/ ANASTASIYA GIBSON LPN LICENSED PRACITCAL NURSE Signed: 12/23/2023 12:22 ANASTASIYA GIBSON [facility] Dec 23, 2023 12:09 PM PRIMARY CARE NOTE: LOCAL TITLE: PRIMARY CARE PROVIDER ESTABLISHED VISIT [facility] STANDARD TITLE: PRIMARY CARE NOTE DATE OF NOTE: DEC 23, 2023@12:09 ENTRY DATE: DEC 23, 2023@12:10:01 AUTHOR: SHELL LILLY EXP COSIGNER: URGENCY: STATUS: COMPLETED PRIMARY CARE PROVIDER ESTABLISHED VISIT ST Has ADDENDA REASON FOR VISIT/CHIEF COMPLAINT: Evaluation and management of chronic medical conditions/ My scheduled visit HPI: Patient is a 62 year old BLACK OR MALE who presents to the clinic for evaluation and management of chronic medical conditions. Patient denies any recent ED visits or hospitalizations. Patient goes by Jahaira. Patient is a [facility]. Private providers: -Patient prefers for his private PCP to manage his primary care, obtains medications through the [place] due to cost. -Private PCP Dr. Stauffer. -Private GI (patient unsure of name). -Private optometry at [facility] #Congestive Heart Failure: Patient has hx of ASD s/p surgical closure 2000. -GDMT: -BB: Carvedilol. -ANTONIO-I: On ARB. -Diuretic: SPIRONOLACTONE and TORSEMIDE. -Other medication: Empagliflozin. -Euvolemic. -Pt denies SOB, peripheral edema, increased abdominal girth, orthopnea, decreased appetite, scrotal edema. #DM 2: -HGA1C 9.1 H % 01/21/2023. -Medications: EMPAGLIFLOZIN, INSULIN,ASPART and INSULIN,GLARGINE-YFGN. -Reports compliance to medication regimen. -Checking blood sugar: Yes. -Blood sugar readings at home: <200 on average. -Eye exam: per private optometry. -Foot exam: See reminders. -Micral: 10/28/2023. -Statin: Yes. -ACEI: on ARB. -Denies recent hypo/hyperglycemia episodes. #HTN: -Medications: Carvedilol, Torsemide, Spironolactone, HYDRALAZINE and VALSARTAN. -Reports compliance to medication regimen. Denies taking these medications today. -Reports having blood pressure machine at home. -Blood pressure readings at home: <140/90. -Denies CP, SOB, heart palpitations, headaches, blurred vision, dizziness/lightheadedness. -Patient previously managed by [place] pharmacist. Patient requesting to f/u with [place] pact pharmacy. #HLD: -Medication: Atorvastatin. -Reports compliance with medication regimen. -Denies any new onset of myalgias. #COPD/Asthma: -Medications: ALBUTEROL PRN, Albuterol nebulizer, MONTELUKAST, OLODATEROL/TIOTROP and CICLESONIDE. -Denies increased SOB, coughing, wheezing, mucus production or hemoptysis. #CKD stage 3A: -Has secondary hyperparathyroidism. CREATININE 1.69 H mg/dL 10/28/2023 09:39 EGFR (CKD-EPI 2020) 45.6 10/28/2023 09:39 -Denies use of NSAIDs. #Chronic headache: -Medication: TOPIRAMATE. -Denies changes in headache pattern. #LITTLE: -Reports nightly CPAP use. #Obesity: -BMI: 41.87. -Diet: Regular. -Exercise: Denies. #Gout: -Medication: Allopurinol. -Denies compliance with medication regimen. -Denies any recent gout attacks. #GERD: -Medication: OMEPRAZOLE. -Reports compliance with medication regimen. -Denies concerns today. #Vitamin D deficiency: -VITAMIN D, 25-HYDROXY 15.6 L ng/mL 10/28/2023 09:39 -Denies being on supplementation, reports [place] renal is managing this. SOURCE(S) OF HISTORY: Patient PAST MEDICAL HISTORY: 1) Daily headache (SNOMED CT [id number]) 2) Benign essential hypertension 3) Type 2 diabetes mellitus 4) Asthma 5) Hyperlipidemia 6) Polyp of colon 7) Vitamin D Deficiency ([facility] [id number]) 8) Obstructive Sleep Apnea Syndrome ([facility] [id number]) 9) CHF - Congestive Heart Failure ([facility] [id number]) 10) Obesity ([facility] [id number]) 11) Gastroesophageal reflux disease 12) Chronic kidney disease stage 3A 13) Gout 14) Chronic obstructive lung disease 15) Asthma SOCIAL HISTORY: Tobacco: Former smoker. Quit smoking approx. in 2019. Smoked since age 18, 2-3 PPD. Alcohol: Denies. Illicit: Denies. -Patient lives with . Patient reports able to complete ADL's at home. ALLERGIES: METFORMIN ALLERGY REVIEW: Allergy list reviewed and remains current. MEDICATIONS: Active and Recently Outpatient Medications (excluding Supplies): Active Outpatient Medications Status 1) ACCU-CHEK GUIDE (GLUCOSE) TEST STRIP USE 1 STRIP FOR ACTIVE BLOOD TEST FOUR TIMES A DAY FOR BLOOD SUGAR MONITORING 2) ALBUTEROL 90MCG (CFC-F) 200D ORAL INHL INHALE 2 PUFFS ACTIVE ORAL INHALATION FOUR TIMES A DAY NEEDED FOR EXERCISE-INDUCED BRONCHOSPASM SHAKE WELL. RINSE MOUTHPIECE FREQUENTLY TO PREVENT CLOGGING. 3) ALBUTEROL SO4 0.083% INHL 3ML INHALE 1 VIAL ACTIVE (2.5MG/3ML) BY NEBULIZATION EVERY 6 HOURS DIRECTED NEEDED FOR EXERCISE-INDUCED BRONCHOSPASM 4) ALLOPURINOL 300MG TAB TAKE ONE TABLET BY MOUTH ONCE A ACTIVE DAY TAKE WITH PLENTY OF WATER. 5) ATORVASTATIN CALCIUM 80MG TAB TAKE ONE-HALF TABLET BY ACTIVE MOUTH EVERY EVENING FOR CHOLESTEROL. REPORT ANY UNEXPLAINED MUSCLE PAIN/WEAKNESS TO PROVIDER. 6) CARVEDILOL 12.5MG TAB TAKE ONE-HALF TABLET BY MOUTH ACTIVE TWICE A DAY TAKE WITH FOOD. 7) CICLESONIDE 160MCG 60D ORAL INHL INHALE 1 PUFF ORAL ACTIVE INHALATION TWICE A DAY FOR ASTHMA 8) EMPAGLIFLOZIN 25MG TAB TAKE ONE-HALF TABLET BY MOUTH ACTIVE ONCE A DAY 9) HYDRALAZINE HCL 100MG TAB TAKE ONE TABLET BY MOUTH ACTIVE THREE TIMES A DAY FOR BLOOD PRESSURE 10) INSULIN,ASPART(EQV-NOVLG)100 UN/ML FLXPEN INJECT 16 ACTIVE UNITS UNDER THE SKIN BEFORE BREAKFAST AND INJECT 16 UNITS BEFORE LUNCH AND INJECT 16 UNITS BEFORE SUPPER FOR BLOOD SUGAR CONTROL. ADMINISTER 10 MINUTES BEFORE FOOD DIRECTED. REFRIGERATE UN-OPENED PENS. DISCARD CARTRIDGE 28 DAYS AFTER OPENING. 11) INSULIN,GLARGINE-YFGN 100UNIT/ML PEN 3ML INJECT 50 ACTIVE UNITS UNDER THE SKIN ONCE A DAY FOR BLOOD SUGAR CONTROL. ADMINISTER AT SAME TIME EACH DAY DIRECTED. DISCARD ANY OPEN CARTRIDGE AFTER 28 DAYS. 12) MONTELUKAST NA 10MG TAB TAKE ONE TABLET BY MOUTH ACTIVE EVERY EVENING FOR ASTHMA 13) OLODATEROL/TIOTROP 2.5MCG/ACTUAT 60D INH INHALE 2 ACTIVE PUFFS ORAL INHALATION ONCE A DAY FOR ASTHMA ADMINISTER AT SAME TIME EACH DAY 14) SPIRONOLACTONE 25MG TAB TAKE ONE TABLET BY MOUTH ONCE ACTIVE A DAY 15) TOPIRAMATE 50MG TAB TAKE ONE TABLET BY MOUTH TWICE A ACTIVE DAY FOR MIGRAINE PROPHYLAXIS 16) TORSEMIDE 20MG TAB TAKE TWO TABLETS BY MOUTH TWICE A ACTIVE DAY FOR FLUID RETENTION (EDEMA) 17) VALSARTAN 160MG TAB TAKE ONE TABLET BY MOUTH TWICE A ACTIVE DAY TO LOWER BLOOD PRESSURE Active Non-VA Medications Status 1) Non-VA ASPIRIN 81MG CHEW TAB 81MG BY MOUTH ONCE A DAY ACTIVE 18 Total Medications REVIEW OF SYSTEMS: Constitutional: Denies weight loss, fever, chills. Ears, Nose, Mouth, Throat: Denies nasal drainage or sore throat. Denies dizziness. Endocrinology: Denies heat or cold intolerance, polydipsia, polyuria, or polyphagia. Cardiovascular: Denies chest pain, palpitations, or dizziness. Respiratory: Denies cough or shortness of breath. ABD/GI: Denies abdominal pain, nausea, vomiting, constipation, diarrhea or incontinence. Musculoskeletal/Extremities: Denies edema. Denies pain. /RN CORONARY CARE UNIT: Denies frequency, hesitancy, urgency, or hematuria. Psychology: Denies insomnia or SI/HI. Denies anxiety or depression. Neurology: Denies NDIAYE, tremors, neuropathy, or seizures. Skin: Denies rashes, skin lesions. PHYSICAL EXAMINATION: VITALS (most recent, as listed in the electronic record): Temperature: 98.7 F [37.1 C] (12/23/2023 12:07) BP: 166/77 (12/23/2023 12:40) Pulse: 76 (12/23/2023 12:07) Resp: 20 (12/23/2023 12:07) PulsOx: 96% (12/23/2023 12:07) Pain: 0 (12/23/2023 12:07) Weight: Measurement DT WEIGHT LB(KG)[BMI] 12/23/2023 12:07 274.8(124.65)[42*] 10/28/2023 09:12 277.9(126.05)[42*] 09/29/2023 13:14 280.3(127.14)[43*] HEENT: EOMI, PERRLA, Moist mucous membranes. No [...] mg/dL 01/21/2023 10:04 CMP: SODIUM 141 mEq/L 10/28/2023 09:39 POTASSIUM 4.0 mEq/L 10/28/2023 09:39 CHLORIDE 106 mEq/L 10/28/2023 09:39 UREA NITROGEN 18.6 mg/dL 10/28/2023 09:39 CREATININE 1.69 H mg/dL 10/28/2023 09:39 CALCIUM 10.0 mg/dL 10/28/2023 09:39 PROTEIN 7.7 g/dL 01/21/2023 10:04 ALBUMIN 4.1 g/dL 10/28/2023 09:39 ALKALINE PHOSPHATASE 78 U/L 01/21/2023 10:04 ALT/SGPT 18 U/L 01/21/2023 10:04 AST/SGOT 12 U/L 01/21/2023 10:04 TOTAL BILIRUBIN 0.6 mg/dL 01/21/2023 10:04 CARBON DIOXIDE 25 mEq/L 10/28/2023 09:39 GLUCOSE 160 H mg/dL 10/28/2023 09:39 EGFR (CKD-EPI 2020) 45.6 10/28/2023 09:39 CBC: WBC 5.5 10*3/uL 10/28/2023 09:39 RBC [...] BASOPHILS, AUTO % 1 % 10/28/2023 09:39 NEUTROPHILS, ABSOLUTE 3.19 10*3/uL 10/28/2023 09:39 LYMPHOCYTES, ABSOLUTE 1.55 10*3/uL 10/28/2023 09:39 MONOCYTES, ABSOLUTE 0.52 10*3/uL 10/28/2023 09:39 EOSINOPHILS, ABSOLUTE 0.20 10*3/uL 10/28/2023 09:39 BASOPHILS, ABSOLUTE 0.03 10*3/uL 10/28/2023 09:39 PSA: PROST. SPECIFIC AG.(PB-STL) 1.508 ng/mL 01/21/2023 10:04 Result: Acceptable Health maintenance: -Influenza today. Immunization Series Date Facility Reaction Info COVID-19 (MODERNA), MRNA, LNP-S,* 1 05/21/[facility] COVID-19 (MODERNA), MRNA, LNP-S,* 4 12/06/2021 [facility] <C> COVID-19 (MODERNA), MRNA, LNP-S,* 3 05/02/2021 [facility] <C> COVID-19 (MODERNA), MRNA, LNP-S,* 2 07/15/2020 [facility] <C> COVID-19 (MODERNA), MRNA, LNP-S,* 1 06/17/2020 [facility] <C> INFLUENZA, SPLIT VIRUS, QUADRIVA* 01/07/2023 [facility] PNEUMOCOCCAL CONJUGATE PCV 13 C 12/27/2020 [facility] PNEUMOCOCCAL POLYSACCHARIDE PPV23 C 12/06/2021 [facility] TDAP 06/27/2017 [facility]* <C> ZOSTER RECOMBINANT 2 12/06/2021 [facility] ZOSTER RECOMBINANT 1 12/27/2020 [facility] Colonoscopy: Patient reports obtained historically in the private sector at [facility] in approx. 2009 per patient. Patient requesting this to be ordered at the [place]. [facility]OPE ordered. Patient reports he was not called for this when previously consult 06/2023 was placed, reports his private PCP gave him a FIT test and he has not completed it. PSA: 1.508 ng/mL 01/21/2023. LDCT: Pending to be scheduled for 01/2024. Date Procedure CPT Status Case # 02/05/2023 LDCT LUNG CANCER SCREENING [id number] Verified [id number] LUNG-RADS: 1: Negative. RECOMMENDATION: [address] follow-up, if patient meets screening criteria. LUNG-RADS MODIFIER: N/A. AAA screening: Due at age 66. Eye exam: Evaluation and management per private optometry. Labs ordered: A1C, Lipid panel, TSH, PSA, Uric acid and UA (fasting). Patient agreeable to forward to his private PCP. ASSESSMENT/PLAN: Congestive Heart Failure: -Euvolemic on exam, no evidence of decompensation noted. -Continue to trend renal function and electrolytes. -Reviewed lifestyle modifications and s/s of fluid volume overload and when to notify PCP. -Educated to monitor weight at home daily & report if notices 3lbs in 1 day or 5lbs in 1 week. -Evaluation and management per [place] cardiology. Recommend patient schedule an appointment. DM 2: -Continue to check BG as recommended. -Continue medication regimen. -Reviewed lifestyle modifications. -Educated to check feet daily and to have an eye exam yearly. -Evaluation and management per private PCP. HTN: -Continue prescribed regimen. -Instructed patient to [...] report readings consistently above goal of <140/80. -Evaluation and management per [place] renal. -[facility] pact pharmacist consult placed. HLD: -Continue medication regimen. -Reviewed lifestyle modifications including participating in a low fat/low cholesterol diet. -Dietitian contact information given. -Evaluation and management per private PCP. COPD/Asthma: -Continue medication regimen. -Reviewed lifestyle modifications. -Evaluation and management per [place] pulmonary. Recommend patient schedule an appointment. CKD stage 3A: -Recommended to stay hydrated and to avoid NSAIDs. -Reviewed lifestyle modifications. -Operations Vice President contact information given. -Evaluation and management per [place] renal. Chronic headache: -Continue medication regimen. -Reviewed potential migraine triggers. -Evaluation and management per private PCP. LITTLE: -CPAP clinic contact information given for patient to order supplies. -Continue using CPAP machine nightly. -Clean machine daily and replace filters q6m. -The patient has been advised that using CPAP regularly can decrease cardiac strain and help to control blood pressure. -Evaluation and management per private PCP. Obesity: -Reviewed lifestyle modifications. -MOVE program and dietitian contact information given. -Evaluation and management per private PCP. Gout: -Continue current medication regimen. Recommend medication compliance. -Educated to avoid alcohol, seafood and organ meats. -Evaluation and management per private PCP. GERD: -Continue medication regimen. -Reviewed lifestyle modifications. -Educated to avoid triggering foods such as alcohol, caffeinated drinks, chocolate, coffee, spicy foods, citrus foods, tomatoes etc. -Evaluation and management per private PCP. Vitamin D Deficiency: -Reviewed foods high in vitamin D including: Milk, orange juice, yogurt, salmon, canned tuna fish, cod liver oil and cereals with vitamin D added. -Evaluation and management per [place] renal. RETURN TO CLINIC: 6 months or earlier as needed. SUMMARY STATEMENT: Plan of care has been discussed with including expected therapeutic benefits and potential side effects of prescribed medication and treatments. verbalizes understanding and is in agreement with the plan of care. Patient was instructed to keep all scheduled appointments and contact business information manager for any additional problems. Medication Reconciliation Opt STL: I have reviewed the patient's medication list (including active outpatient prescriptions [facility]) and dispensed from another [place] or [facility] facility (remote) as well as inpatient orders (local pending and active), local clinic medications, locally documented non-VA medications, and local prescriptions that have or been discontinued in the past 90 days.) with the patient and/or his/her care-custom harvester. Handwritten corrections, additions and/or deletions were made to the list, as appropriate. Corrected Outpatient Medication List was provided to the patient/caregiver. HTN Assess for Elevated BP>=140/90: Repeat blood pressure: 166/77 The patient was counseled on the importance of regular exercise and/or physical activity in the control of blood pressure. The patient was instructed to try to participate in 120 minutes of aerobic exercise per week if possible and that any increase in physical activity may be useful in controlling blood pressure. The patient was counseled on the importance of diet and weight loss/ control in the regulation of blood pressure. The patient was counseled to reduce their weight to within 10 percent of their ideal body weight. The possible improvement in blood pressure control with even 5 to 10 pounds of weight loss was reviewed. The contribution of dietary sodium to elevated blood pressure was reviewed. The patient was counseled to have a goal sodium intake of 1500mg per day, with no more than 2300mg per day. The patient was counseled that a diet low in dietary saturated and trans fats is beneficial in lowering blood pressure. The patient was counseled that a diet rich in fresh fruits, vegetables and whole grains is beneficial in lowering blood pressure. The patient was counseled to limit alcohol intake to no more than 2 drinks per day for men and 1 drink per day for women. /darwin/ Shell Lilly DNP, APPLICATION RELEASE MANAGER, WATERSIDE WORKER-C Primary Care Nurse Practitioner Signed: 12/23/2023 12:47 Receipt Acknowledged By: 01/20/2024 10:17 /es/ Lolita Dowd, PharmD,CDE Lolita Dowd, PharmD, CDE 12/31/2023 ADDENDUM STATUS: COMPLETED Labs reviewed from 12/23/23: A1C, Lipid panel, TSH, PSA, Uric acid and UA (fasting). Will mail result letter to patient. Recommend patient forward these results to private PCP for further evaluation and/or management. #DM 2: -HGA1C 7.9 H % 12/23/2023. -HGA1C 9.1 H % 01/21/2023. -Medications: EMPAGLIFLOZIN, INSULIN,ASPART and INSULIN,GLARGINE-YFGN. -Evaluation and management per private PCP. #HLD: TRIGLYCERIDE 197 H mg/dL 12/23/2023 13:05 CHOLESTEROL 106 mg/dL 12/23/2023 13:05 HDL(New) 26 L mg/dL 12/23/2023 13:05 CALCULATED LDL 41 mg/dL 12/23/2023 13:05 -Medication: Atorvastatin. -Evaluation and management per private PCP. #Gout: URIC ACID 7.7 H mg/dL 3.5 - 7.2 -Medication: Allopurinol. -Denies compliance with medication regimen during PCP visit. -Evaluation and management per private PCP. /darwin/ Shell Lilly DNP, APPLICATION RELEASE MANAGER, WATERSIDE WORKER-C Primary Care Nurse Practitioner Signed: 12/31/2023 13:42 SHELL LILLY [facility]
--- OUTSIDE RECORDS SUMMARY | 2024-04-20 04:57 | XMS_ITS ---
Author Name [facility] Address [address] [place] [address] Care Team Providers Care Occupational Health Coordinator Name Role Phone SHAMA LILLY Primary Care [...] Nichols's Name Patient's Relationship to Policy Nichols [facility] Oct 29, 2012 Dec 27, 2026 [facility] [id number] [phone] ALEC MORATAYA PATIENT [facility] Oct 29, 2012 Dec 27, 2026 [facility] [id number] ALEC MORATAYA PATIENT Selected Encounter This section includes the information on record at [place] for the Encounter. Date/Time Encounter Type Encounter Description Reason Pro vider Source Nov 06, 2023 09:52 AM Outpatient Encounter ADMIN PAT ACTIVTIES (MASNONCT) IHE Encounter Template Text not used by [place] Plan of Treatment: Future Appointments (+ 6 [...] 20 appointments. The data comes from all [facility]. Appointment Date/Time Appointment Type Appointme nt Facility Name Dec 19, 2023 01:40 PM AMBULATORY - MEDICINE [facility] Dec 23, 2023 12:30 PM AMBULATORY - MEDICINE [facility] Apr 23, 2024 01:40 PM AMBULATORY - MEDICINE [facility] Lab Results: +/- 30 days of the encounter This section includes the Chemistry and Hematology Lab Results on record with [place] for the patient. Radiology Reports and Pathology Reports are provided separately, in subsequent sections. Lab Results This section contains the Chemistry/Hematology Results that were resulted 30 days before or 30 daysafter the date of the Encounter. Date/Time Source Result Type Result - Unit Interpretation Reference Range Comment Oct 28, 2023 09:42 AM [facility] MICRAL/CREAT PROFILE (STL) Specimen Type: URINE No comment entered. Ordering Provider: MABEL MURPHY Report Released Date/Time: Oct 28, 2023 09:22 AM Reporting Lab: [address] [address] Performing Lab: [address] [address] URINE ALBUMIN (PB-STL) 341.2 mg/L uACR (STL) 664 mg/g H 0-29 CREATININE URINE/OTHERS 51.4 mg/dL L 63-166 Oct 28, 2023 09:39 AM [facility] VITAMIN D, 25-HYDROXY Specimen Type: SERUM No comment entered. Ordering Provider: MABEL MURPHY Report Released Date/Time: Oct 28, 2023 09:22 AM Reporting Lab: [facility] [address] [facility] [address] Performing Lab: [address] [address] VITAMIN D, 25-HYDROXY 15.6 ng/mL L 30-96 Oct 28, 2023 09:39 AM [facility] PTH, INTACT (STL) Specimen Type: SERUM No comment entered. Ordering Provider: MABEL MURPHY Report Released Date/Time: Oct 28, 2023 09:22 AM Reporting Lab: [facility] [address] [place] [id number] Performing Lab: [address] [address] PTH, INTACT (STL) 57.70 pg/mL 8.7-77.7 Oct 28, 2023 09:39 AM [facility] RENAL PANEL Specimen Type: PLASMA Comment: No hemolysis noted. Ordering Provider: MABEL MURPHY Report Released Date/Time: Oct 28, 2023 09:22 AM Reporting Lab: [address] [address] Performing Lab: [address] [address] CREATININE 1.69 mg/dL H 0.7-1.3 UREA NITROGEN 18.6 mg/dL 9.0-25.0 GLUCOSE 160 mg/dL H 72-99 SODIUM 141 meq/L 136-145 POTASSIUM 4.0 meq/L 3.5-5 CHLORIDE 106 meq/L 98-107 CARBON DIOXIDE 25 meq/L 22-31 CALCIUM 10.0 mg/dL 8.4-10.4 PHOSPHOROUS 4.6 mg/dL 2.3-4.7 ALBUMIN 4.1 g/dL 3.4-5 EGFR (CKD-EPI 2020) 45.6 >60 Oct 28, 2023 09:39 AM [facility] CBC Specimen Type: BLOOD No comment entered. Ordering Provider: MABEL MURPHY Report Released Date/Time: Oct 28, 2023 09:22 AM Reporting Lab: [address] [address] Performing Lab: [address] [address] WBC 5.5 10*3/uL 3.6-11.2 RBC 5.42 10*6/uL [...] 02:41 PM VA-TOBACCO NEVER USED [facility] Tobacco Use History This section includes a history of the smoking, or tobacco-related health factors, that were collected on or before the date of the Encounter. The data comes from the [place] facility where the Encounter took place. Date/Time Smoking Status/Tobacco Use Comment F acility Jul 06, 2019 01:16 AM [facility]YX ADMIT TOBACCO SCREEN NO [facility] Feb 16, 2019 10:39 PM ORYX ADMIT TOBACCO SCREEN NO [facility] Nov 20, 2015 11:29 AM CURRENT TOBACCO USER [facility] Nov 20, 2015 11:29 AM TOBACCO MEDS OFFER ED BUT DECLINED [facility] Dec 26, 2014 09:53 AM CURRENT TOBACCO USER [facility] Dec 26, 2014 09:53 AM TOBACCO MEDS OFFER ED BUT DECLINED [facility] Advance Directives: All historical and [...] 06, 2019 ADVANCE DIRECTIVE DISCUSSION JJ REZA [facility] Encounter Notes: All associated encounter notes This section contains the clinical notes associated to the Encounter. Date/Time Encounter Note(s) Provider Source Nov 06, 2023 09:52 AM ADMINISTRATIVE NOT E: LOCAL TITLE: SCHEDULING NOTE STL STANDARD TITLE: ADMINISTRATIVE NOTE DATE OF NOTE: NOV 06, 2023@09:52 ENTRY DATE: NOV 06, 2023@09:52:28 AUTHOR: GARRICK MCGRATH EXP COSIGNER: URGENCY: STATUS: COMPLETED RTC/Appt request dispositioned due to No Show/Cancellation X 2 (per DIR 1230) Clinic: PID 01-09-2024 [facility] CLR PACT 3 PCP ADDITIONAL RESULTS FROM SCHEDULING ATTEMPTS: /darwin/ GARRICK MCGRATH ADVANCED PROFESSOR OF GENETICS Signed: 11/06/2023 09:52 GARRICK MCGRATH [facility]
--- OUTSIDE RECORDS SUMMARY | 2024-04-20 04:58 | XMS_ITS | Encounter Summary ---
Author Name [facility] [place] Organization [facility] [place] [facility] [place] Address [address] [place] [address] Care Team Providers Care Weight Control Engineer Name Role Phone SHAMA LILLY Primary Care [...] Nichols's Name Patient's Relationship to Policy Nichols [facility] Oct 29, 2012 Dec 27, 2026 [facility] [id number] [phone] ALEC MCCLELLAND PATIENT OPTUM RX [facility] Oct 29, 2012 Dec 27, 2026 [facility] [id number] [phone] ALEC MCCLELLAND PATIENT Selected Encounter This section includes the information on record at OR for the Encounter. Date/Time Encounter Type Encounter Description Reason Pro vider Source Dec 25, 2023 02:04 PM Outpatient Encounter ADMIN PAT ACTIVTIES (MASNONCT) IHE Encounter Template Text not used by OR Plan of Treatment: Future Appointments (+ 6 [...] 20 appointments. The data comes from all [facility] facilities. Appointment Date/Time Appointment Type Appointme nt Facility Name Apr 23, 2024 01:40 PM AMBULATORY - MEDICINE [facility] Jun 23, 2024 10:30 AM AMBULATORY MEDICINE [facility] Lab Results: +/- 30 days of the encounter This section includes the Chemistry and Hematology Lab Results on record with OR for the patient. Radiology Reports and Pathology Reports are provided separately, in subsequent sections. Lab Results This section contains the Chemistry/Hematology Results that were resulted 30 days before or 30 daysafter the date of the Encounter. Date/Time Source Result Type Result - Unit Interpretation Reference Range Comment Dec 23, 2023 01:05 PM [facility] LIPID PANEL (STL) Specimen Type: PLASMA No comment entered. Ordering Provider: SHAMA LILLY Report Released Date/Time: Dec 23, 2023 12:37 PM Reporting Lab: [facility] [address] [facility] [address] Performing Lab: [address] [address] CHOLESTEROL 106 mg/dL 0-200 TRIGLYCERIDE 197 mg/dL H 0-150 CALCULATED LDL 41 mg/dL HDL(New) 26 mg/dL L >40 Dec 23, 2023 01:05 PM [facility] TSH (MA-PB) Specimen Type: SERUM Comment: The listed sex of this patient may not be a typical indication for this test. Therefore, reference ranges or interpretive criteria listed may not be valid. Clinical correlation suggested. Ordering Provider: SHAMA LILLY Report Released Date/Time: Dec 23, 2023 12:37 PM Reporting Lab: [facility] [address] [facility] [address] Performing Lab: [address] [address] TSH 1.531 u[IU]/mL 0.47-5 Dec 23, 2023 01:05 PM [facility] HGA1C Specimen Type: BLOOD No comment entered. Ordering Provider: SHAMA LILLY Report Released Date/Time: Dec 23, 2023 12:37 PM Reporting Lab: [place] [address] Performing Lab: [place] [address] HGA1C 7.9 H 4.0-6.0 Dec 23, 2023 01:05 PM [facility] PROST. SPECIFIC AG.(PB-STL) Specimen Type: SERUM Comment: The listed sex of this patient may not be a typical indication for this test. Therefore, reference ranges or interpretive criteria listed may not be valid. Clinical correlation suggested. Ordering Provider: SHAMA LILLY Report Released Date/Time: Dec 23, 2023 12:37 PM Reporting Lab: [place] [address] Performing Lab: [place] [address] PROST. SPECIFIC AG.(PB-STL) 1.504 ng/mL 0-4 Dec 23, 2023 01:05 PM [facility] URIC ACID Specimen Type: PLASMA No comment entered. Ordering Provider: SHAMA LILLY Report Released Date/Time: Dec 23, 2023 12:37 PM Reporting Lab: [place] [address] Performing Lab: [place] [address] URIC ACID 7.7 mg/dL H 3.5-7.2 Dec 23, 2023 01:05 PM [facility] URINALYSIS (STL-PB) Specimen Type: URINE Comment: High [...] Dec 23, 2023 12:37 PM Reporting Lab: [facility] [address] [facility] [address] Performing Lab: [facility] [address] [facility] [address] URINE COLOR Light-Yellow Yellow U.BILIRUBIN Negative mg/dL [...] and tobacco- related health factors from the [place] facility where the Encounter took place. Current Smoking Status This section includes the most current smoking, or tobacco-related health factor, from the [place] facility where the Encounter took place. Date/Time Current Smoking Status Comment Arnulfo chacko Jan 06, 2023 02:41 PM VA-TOBACCO NEVER USED [facility] Tobacco Use History This section includes a history of the smoking, or tobacco-related health factors, that were collected on or before the date of the Encounter. The data comes from the [place] facility where the Encounter took place. Date/Time [...] ALL of a patient's completed or amended [place] Advance and Rescinded Directives. The entries below indicate that a directive exists for the patient, but an actual copy is not included with this document. The data comes from all [place] facilities. Date Advance Directives Provider Source Jul 06, 2019 ADVANCE DIRECTIVE DISCUSSION JJ REZA VENTURA [facility] Encounter Notes: All associated encounter notes This section contains the clinical notes associated to the Encounter. Date/Time Encounter Note(s) Provider Source Dec 25, 2023 02:11 PM PHYSICIAN LETTERS: LOCAL TITLE: NO CONTACT LETTER ST STANDARD TITLE: PHYSICIAN LETTERS DATE OF NOTE: DEC 25, 2023@14:11 ENTRY DATE: DEC 25, 2023@14:12:01 AUTHOR: FARZAD CRUZ EXP COSIGNER: URGENCY: STATUS: COMPLETED [facility] [address] [place] [address] DEC 25, 2023 JAHAIRA MCCLELLAND [address] [place] [address] Dear Jahaira Mcclelland, Thank you for choosing the [facility] as your primary choice for health care. As a partner in your health care, we are attempting to contact you because we have been unsuccessful in reaching you by phone to schedule your clinic appointment. Please call us at [phone], extension [phone] [phone] to speak to us regarding making an appointment in the [facility] clinic. Your good health is important to [...] the clinic to inquire about scheduling. Sincerely, FARZAD CRUZ ADVANCED VOCATIONAL EXAMINER JAHAIRA MCCLELLAND DANNA [facility] Dec 25, 2023 02:04 PM ADMINISTRATIVE NOT E: LOCAL TITLE: SCHEDULING NOTE STL STANDARD TITLE: ADMINISTRATIVE NOTE DATE OF NOTE: DEC 25, 2023@14:04 ENTRY DATE: DEC 25, 2023@14:06:07 AUTHOR: FARZAD CRUZ COSIGNER: URGENCY: STATUS: COMPLETED Minimum Scheduling attempts to contact the have been made. RTC/Appt/Consult request will be discontinued after 14 days. Clinic: [facility] CARLY: Nov First Call to [place] - unsuccessful scheduling: Dec Unable to contact , letter sent: Dec Discontinue date (14 calendar days after letter is mailed): Dec Additional comments: Unable to leave a voicemail message to reschedule [facility] No show RTC Appt. ADDITIONAL RESULTS FROM SCHEDULING ATTEMPTS: /darwin/ FARZAD CRUZ ADVANCED VOCATIONAL EXAMINER Signed: 12/25/2023 14:11 FARZAD CRUZ [facility]
--- OUTSIDE RECORDS SUMMARY | 2024-04-20 04:58 | XMS_ITS | Encounter Summary ---
Author Organization [facility] Address [address] [place] [address] Care Team Providers Care Graphic Arts Technician Name Role Phone Natalie Lanier MD Primary Care Provider [phone] Encounter Details Date Type Department Care Team (Late st Contact Info) Description 02/05/2019 Orders Only [facility] [address] [place] [address] [address] [place] [address] [place] [address] [place] [address] [address] [place] [address] Pre-procedure lab exam Social History Tobacco Use Types Packs/Day Years Used Date Smoking Tobacco: Every Day Smokeless Tobacco: Never Alcohol Use Standard Drinks/Week Comments No 0 (1 standard drink = 0.6 oz pur e alcohol) Sex and Gender Information Value Date Recorded Sex Assigned at Not on file Gender Identity Not on file Sexual Orientation Not on file documented as of this encounter Progress Notes * Patricia Velez - 02/17/2019 1:09 PM CST S/w pt's macario on HIPAA. informed pt labs are stable for cath 02/19/19. then states that pt is currently @ [facility] and cath needs to be canceled. denied to share pt's reason for this admission but stated it was non-cardiac. instructed to contact office when pt is ready to reschedule cath. She verbalized understanding and had no further questions. Will inform MYKE Velez 02/17/2019 1:07 PM [facility]ION * Susan Iraheta - 02/05/2019 11:03 AM CDT Orders placed for BMP, CBC, PT-INR. Order placed and routed to physician to sign. Susan Iraheta 02/05/2019 11:06 AM documented in this encounter Plan of Treatment Not on file documented as of this encounter Procedures Procedure Name Priority Date/Time Associated Diagnosis Comments PT-INR Routine 02/12/2019 12:09 PM CDT Pre-procedure lab exam CBC W AUTO DIFFERENTIAL Routine 02/12/2019 12:09 PM CDT Pre-procedure lab exam BASIC METABOLIC PANEL (CALCIUM TOTAL) Routine 02/12/2019 12:09 PM CDT Pre-procedure lab exam documented in this encounter Results * PT-INR (02/12/2019 12:09 PM CDT) INR 1.1 0.8 - 1.2 [facility] INSURANCE BILL Comment: ? Reference interval is for non-anticoagulated patients. ?. ? Suggested INR therapeutic range for Vitamin K ? antagonist therapy: ?Standard Dose (moderate intensity ? therapeutic range): ? 2.0 - 3.0 ?Higher intensity therapeutic range ? 2.5 - 3.5 PT 11.1 9.1 - 12.0 sec [facility] INSURANCE BILL Blood BLOOD SPECIMEN / Unknown 02/12/2019 12:09 PM CDT 02/12/2019 Narrative Resulting Agency Comment Lab Testing performed at: [facility] ??[facility] [id number] Karissa Flores DO LAB - COAGULATION O RDERABLES [facility] INSURANCE BILL [address] [place] [address] * (ABNORMAL) CBC WITH DIFFERENTIAL (02/12/2019 12:09 PM CDT) WBC 9.3 3.4 - 10.8 x10E3/uL [facility] INSURANCE BILL RBC 4.21 4.14 - 5.80 x10E6/uL [facility] INSURANCE BILL Hemoglobin 10.2(L) 13.0 - 17.7 g/dL [facility] INSURANCE BILL Hematocrit 32.2(L) 37.5 - 51.0 % [facility] INSURANCE BILL MCV 77(L) 79 - 97 fL [facility] INSURANCE BILL MCH 24.2(L) 26.6 - 33.0 pg [facility] INSURANCE BILL MCHC 31.7 31.5 - 35.7 g/dL [facility] INSURANCE BILL RDW 16.3(H) 12.3 - 15.4 % [facility] INSURANCE BILL Platelet Count 228 150 - 450 x10E3/uL [facility] INSURANCE BILL Granulocytes % 75 Not Estab. % [facility] INSURANCE BILL Lymphocytes % 16 Not Estab. % [facility] INSURANCE BILL Monocytes % 6 Not Estab. % [facility] INSURANCE BILL Eosinophils % 3 Not Estab. % [facility] INSURANCE BILL Basophils % 0 Not Estab. % [facility] INSURANCE BILL Immature Cells NOT NEEDED [facility] INSURANCE BILL Comment:Ancillary determined the test is not needed. Granulocytes Absolute 6.9 1.4 - 7.0 x10E3/uL [facility] INSURANCE BILL Lymphocytes Absolute 1.5 0.7 - 3.1 x10E3/uL [facility] INSURANCE BILL Monocytes Absolute 0.5 0.1 - 0.9 x10E3/uL [facility] INSURANCE BILL Eosinophils Absolute 0.2 0.0 - 0.4 x10E3/uL [facility] INSURANCE BILL Basophils Absolute 0.0 0.0 - 0.2 x10E3/uL [facility] INSURANCE BILL Immature Granulocytes 0 Not Estab. % [facility] INSURANCE BILL Immature Granulocytes Absolute 0.0 0.0 - 0.1 x10E3/uL [facility] INSURANCE BILL nRBC NOT NEEDED [facility] INSURANCE BILL Comment:Ancillary determined the test is not needed. Comment Hematology NOT NEEDED [facility] INSURANCE BILL Comment:Ancillary determined the test is not needed. Blood BLOOD SPECIMEN / Unknown 02/12/2019 12:09 PM CDT 02/12/2019 Narrative Resulting Agency Comment Lab Testing performed at: [facility] ??[facility] [phone] Karissa Flores DO LAB - HEMATOLOGY OR DERABLES [facility] INSURANCE BILL [address] [place] [address] * (ABNORMAL) BASIC METABOLIC PANEL (CALCIUM TOTAL) (02/12/2019 12:09 PM CDT) Glucose 256(H) 65 - 99 mg/dL [facility] INSURANCE BILL BUN 25(H) 6 - 24 mg/dL [facility] INSURANCE BILL Creatinine 1.67(H) 0.76 - 1.27 mg/dL [facility] INSURANCE BILL eGFR by MDRD 45(L) >59 mL/min/1.7 3 [facility] INSURANCE BILL eGFR by MDRD 52(L) >59 mL/min/1.7 3 [facility] INSURANCE BILL BUN/Creatinine Ratio 15 9 - 20 [facility] INSURANCE BILL Sodium 142 134 - 144 mmol/L [facility] INSURANCE BILL Potassium 4.1 3.5 - 5.2 mmol/L [facility] INSURANCE BILL Chloride 110(H) 96 - 106 mmol/L [facility] INSURANCE BILL CO2 18(L) 20 - 29 mmol/L [facility] INSURANCE BILL Calcium 9.3 8.7 - 10.2 mg/dL [facility] INSURANCE BILL Blood BLOOD SPECIMEN / Unknown 02/12/2019 12:09 PM CDT 02/12/2019 Narrative Resulting Agency Comment Lab Testing performed at: [facility] [address] ??[facility] [phone] Karissa Flores DO LAB - CHEMISTRY ORD ERABLES [facility] INSURANCE BILL [address] [place] [address] documented in this encounter Visit Diagnoses Diagnosis Pre-procedure lab exam- Primary Pre-procedural laboratory examination documented in this encounter Care Teams Graphic Arts Technician Relationship Specialty Start Date End Date Natalie Lanier MD [address] [place] [address] PCP - General Internal Medicine 01/25/19 documented as of this encounter
--- OUTSIDE RECORDS SUMMARY | 2024-04-20 04:58 | XMS_ITS ---
Author Name [facility] [facility] [place] Organization [facility] [place] Address [address] [place] [address] Care Team Providers Care Digital Archivist Name Role Phone SHAMA LILLY Primary Care [...] Nichols's Name Patient's Relationship to Policy Nichols [facility] Oct 29, 2012 Dec 27, 2026 [facility] [id number] [phone] ALEC MORATAYA PATIENT OPTUM RX [facility] Oct 29, 2012 Dec 27, 2026 [facility] [id number] [phone] ALEC MORATAYA PATIENT Selected Encounter This section includes the information on record at [place] for the Encounter. Date/Time Encounter Type Encounter Description Reason Provider Source Mar 09, 2024 09:00 AM OFF/OP EST AUGUST X REQ PHY/QHP PULMONARY/CHEST ICD-10-CM Z76.0 Encounter for issue of repeat prescription HERMAN RIVERA Encounter Template Text not used by [place] Assessments - Encounter Diagnoses This section includes the primary and secondary diagnoses documented for the Encounter. Date/Time Primary/Secondary Diagnosis Diagnosis Name Provider Source Mar 09, 2024 09:00 AM PRIMARY Encounter for issue of repeat prescription GINI RIVERA [facility] Plan of Treatment: Future Appointments (+ 6 months) and Future Tests (+/- 45 days) The Plan of Treatment section includes future care activities for the patient from all [place] [facility] This section includes future appointments and future orders which are active, pending or scheduled. Future Appointments This section includes appointments that were scheduled to occur 6 months from the date of the Encounter, up to a maximum of 20 appointments. The data comes from all [place] treatment facilities. Appointment Date/Time Appointment Type Appointme nt Facility Name Apr 23, 2024 01:40 PM AMBULATORY - MEDICINE [facility] Jun 23, 2024 10:30 AM AMBULATORY - MEDICINE [facility] Jul 19, 2024 12:20 PM AMBULATORY - MEDICINE [facility] Social History: Smoking Status (Most current) and Tobacco Use (All prior to encounter date) This section includes the most current, and the historical, smoking and tobacco- related health factors from the [place] facility where the Encounter took place. Current Smoking Status This section includes the most current smoking, or tobacco-related health factor, from the [place] facility where the Encounter took place. Date/Time Current Smoking Status Comment Arnulfo ity Jan 06, 2023 02:41 PM VA-TOBACCO NEVER USED [facility] Tobacco Use History This section includes a history of the smoking, or tobacco-related health factors, that were collected on or before the date of the Encounter. The data comes from the [place] facility where the Encounter took place. Date/Time Smoking Status/Tobacco Use Comment F acility Jul 06, 2019 01:16 AM ORYX ADMIT TOBACCO SCREEN NO [facility] Feb 16, 2019 10:39 PM ORYX ADMIT TOBACCO SCREEN NO [facility] Nov 20, 2015 11:29 AM CURRENT TOBACCO USER [facility] Nov 20, 2015 11:29 AM TOBACCO MEDS OFFER ED BUT DECLINED [facility] Dec 26, 2014 09:53 AM CURRENT TOBACCO USER [facility] Dec 26, 2014 09:53 AM TOBACCO MEDS OFFER ED BUT DECLINED [facility] Advance Directives: All historical and current Section Date Range: From patient's date of to the date document was created. This section includes ALL of a patient's completed or amended [place] Advance and Rescinded Directives. The entries below indicate that a directive exists for the patient, but an actual copy is not included with this document. The data comes from all [place] facilities. Date Advance Directives Provider Source Jul 06, 2019 ADVANCE DIRECTIVE DISCUSSION JJ REZA [facility] Encounter Notes: All associated encounter notes This section contains the clinical notes associated to the Encounter. Date/Time Encounter Note(s) Provider Source Mar 09, 2024 09:19 AM PULMONARY TELEPHON E ENCOUNTER NOTE: LOCAL TITLE: PULMONARY TELEPHONE NOTE STL STANDARD TITLE: PULMONARY TELEPHONE ENCOUNTER NOTE DATE OF NOTE: MAR 09, 2024@09:19 ENTRY DATE: MAR 09, 2024@09:19:53 AUTHOR: BIANCA RIVERA EXP COSIGNER: URGENCY: STATUS: COMPLETED PULMONARY TELEPHONE NOTE STL Has ADDENDA Patient lost boxes from inhalers and is out of inhalers for 2 weeks now. He reports worsening asthma symptoms. Refill all inhalers to be picked up today. Also placed RTC order in [facility] Marissa. /darwin/ CHAN العلي PULMONARY ANP Signed: 03/09/2024 09:21 03/09/2024 ADDENDUM STATUS: COMPLETED Length 7 minutes Dx; issue of repeat RX /darwin/ CHAN العلي PULMONARY ANP Signed: 03/09/2024 09:21 BIANCA RIVERA [facility]
--- OUTSIDE RECORDS SUMMARY | 2024-04-20 04:58 | XMS_ITS | Encounter Summary ---
Author Organization [facility] Address [address] [place] [address] Care Team Providers Care Maintenance Supervisor Mechanical Name Role Phone Natalie Lanier MD Primary Care Provider [phone] Reason for Referral * Procedure (Routine) - Closed Specialty Diagnoses / Procedures Referred By Contac t Referred To Contact Cardiology Diagnoses Cardiomyopathy, unspecified type (HCC) LBBB (left bundle branch block) Essential hypertension Tobacco use disorder Procedures EKG 12-LEAD Karissa Flores DO [address] [place] [address] [address] [place] [address] Referral ID Status Reason Start Date Expiration Date Visits Re quested Visits Authorized [id number] Closed 02/19/2019 08/18/2019 1 1 OM SAW OPERATOR Reason for Visit * Reason Comments Coronary Artery Disease Encounter Details Date Type Department Care Team (Late st Contact Info) Description 01/25/2019 10:30 AM CDT Office Visit [facility] [address] [place] [address] [address] [place] [address] Karissa Flores DO [address] [place] [address] [address] [place] [address] Cardiomyopathy, unspecified type (HCC) (Primary Dx); LBBB (left bundle branch block); Essential hypertension; Tobacco use disorder Social History Tobacco Use Types Packs/Day Years Used Date Smoking Tobacco: Every Day Smokeless Tobacco: Never Alcohol Use Standard Drinks/Week Comments No 0 (1 standard drink = 0.6 oz pur e alcohol) Sex and Gender Information Value Date Recorded Sex Assigned at Not on file Gender Identity Not on file Sexual Orientation Not on file documented as of this encounter Last Filed Vital Signs Vital Sign Reading Time Taken Comments Blood Pressure 150/76 01/25/2019 10:57 AM CDT Pulse 64 01/25/2019 10:57 AM CDT Temperature 37.3 ??C (99.1 ??F) 01/25/2019 1 0:57 AM CDT Respiratory Rate - - Oxygen Saturation 95% 01/25/2019 10: 57 AM CDT Inhaled Oxygen Concentration - - Weight 105.8 kg (233 lb 3.2 oz) 019 10:57 AM CDT Height - - Body Mass Index 35.46 07/04/2015 3:52 PM CDT documented in this encounter Progress Notes * Karissa Flores, DO - 01/25/2019 10:39 AM CDT Desmond Mcclelland : 1960 Age: [age] year old [facility] - Cardiology Consult Date of Consult: 01/25/2019 Patient's Primary Care Physician: Natalie Lanier MD Physician Requesting Consult: Natalie Lanier MD Indication for Consultation: Chief Complaint Patient presents with ??? Coronary Artery Disease History of Present Illness: Desmond Mcclelland is a 58 year old male with prior history of open shunt closure. I suspect history of PFO closure but I do not have prior records. He recently had an EKG when he presented for colonoscopy which showed new left bundle branch block. He was then referred as outpatient back to his hot sealing machine operator. He had a stress test showing new wall motion abnormalities along with reduced ejection fraction of around 45 percent. His hot sealing machine operator no longer takes his insurance and was referred here. He has occasional chest pain which is unpredictable. Most of the time his symptoms occur at night or in the morning. He is not very active but denies regular exertional symptoms. He was recently diagnosedwith diabetes. He is on aspirin and statin. He also has hypertension. Has been on hydralazine in the past but was stopped. He does take his losartan as well as his amlodipine regularly. He is here today to establish care. He has no prior diagnosis of coronary disease. He did have a catheterization prior to his open shunt repair in 2000. He states that he did not have any significant obstructive disease at that time. Allergies not on file Medications: Outpatient Medications Marked as Taking for the 01/25/19 encounter (Office Visit) with Karissa Flores, DO Medication Sig ??? albuterol HFA (VENTOLIN HFA) 108 (90 Base) MCG/ACT inhaler Inhale 1 puff by mouth ??? amLODIPine (NORVASC) 10 MG tablet Take 10 mg by mouth ??? Aspirin 81 MG Take 81 mg by mouth ??? atorvastatin (LIPITOR) 80 MG tablet Take 80 mg by mouth ??? BASAGLAR KWIKPEN (BASAGLAR) pen Inject 15 Units subcutaneously ??? fluticasone propionate (FLONASE) 50 MCG/ACT nasal spray Hewitt 1 spray into the nose ??? glipiZIDE (GLUCOTROL) 10 MG tablet Take 10 mg by mouth ??? insulin lispro (ADMELOG) 100 UNIT/ML vial Inject 7 Units subcutaneously ??? losartan (COZAAR) 100 MG tablet Take 100 mg by mouth once daily ??? montelukast (SINGULAIR) 10 MG tablet Take 10 mg by mouth at bedtime ??? raNITIdine (ZANTAC) 150 MG tablet Take 150 mg by mouth ??? topiramate (TOPAMAX) 25 MG tablet Take 25 mg by mouth Past Medical History: HTN HLD--on statin DM No past surgical history on file. Patient Active Problem List: Weakness Family History: No family history on file. Social History: Social History Socioeconomic History ??? Marital status: Spouse name: Not on file ??? Number of children: Not on file ??? Years of education: Not on file ??? Highest education level: Not on file Occupational History ??? Not on file Social Needs ??? Financial resource strain: Not on file ??? Food insecurity: Worry: Not on file Inability: Not on file ??? Transportation needs: Medical: Not on file Non-medical: Not on file Tobacco Use ??? Smoking status: Current Every Day Smoker Substance and Sexual Activity ??? Alcohol use: No ??? Drug use: No ??? Sexual activity: Not on file Lifestyle ??? Physical activity: Days per week: Not on file Minutes per session: Not on file ??? Stress: Not on file Relationships ??? Social connections: Talks on phone: Not on file Gets together: Not on file Attends congregation service: Not on file Active member of club or organization: Not on file Attends meetings of clubs or organizations: Not on file Relationship status: Not on file ??? Intimate partner violence: Fear of current or ex partner: Not on file Emotionally abused: Not on file Physically abused: Not on file Forced sexual activity: Not on file Other Topics Concern ??? Not on file Social History Narrative ??? Not on file Review of Systems: No TIA, CVA or seizures. No dizziness or syncope or falls. No recent change in vision or hearing. No fever, chills, or arthralgias. No cough. No diarrhea or constipation. No GI bleed, ulcers or reflux. No abdominal pain. No thyroid disease. As above, all others systems negative. Physical exam: Vitals: 01/25/19 1057 BP: 150/76 Pulse: 64 Temp: 99.1 ??F (37.3 ??C) SpO2: 95% Weight: 105.8 kg (233 lb 3.2 oz) Constitutional: Pleasant, well appearing in no distress. Skin: Warm, dry. No rashes in visible areas Eye: Conjunctiva clear. Pupil equal round and reactive ENMT: Lips without lesion. Good dentition. Oropharynx clear Neck: Trachea midline. No masses. JVP<8cm, no bruits, no thyromegaly Respiratory: Lungs clear b/l with no rales or wheezing. Unlabored. Cardiovascular: RRR, s1s2nl, no murmurs. No edema. Abdomen: Soft abd, non-tender, normal bowel sounds, no masses. No HSM. Psych: Alert, oriented to person, place, time. Normal affect Data: No results for input(s): WBC, HGB, HCT, PLTCOUNT in the last 35929 hours. Recent Labs Component Name 06/28/15 1154 POTASSIUM 4.0 BUN 11 CREATININE 1.0 No results for input(s): BNP in the last 94899 hours. No results for input(s): TROPONIN in the last 35650 hours. No results for input(s): MAGMGDL in the last 64316 hours. No results for input(s): LDLCALC, HDL, TRIG in the last 28421 hours. No results for input(s): TSH in the last 34476 hours. No results for input(s): INR in the last 92456 hours. The ASCVD Risk score (Alisia GONZALEZ Jr., et al., 2013) failed to calculate for the following reasons: Cannot find a previous HDL lab Cannot find a previous total cholesterol lab Impression: ICD-10-CM 1. Cardiomyopathy, unspecified type I42.9 2. LBBB (left bundle branch block) I44.7 3. Essential hypertension I10 4. Tobacco use disorder F17.200 Plan: He has occasional atypical chest pain. This is in the setting of new reduced LV function and new left bundle branch block. He also has hypertension hyperlipidemia new diagnosis of diabetes. He also states that he quit smoking but then admits that he smoked this morning. He has significant risk factors for coronary disease. -recommend cardiac catheterization. Discussed procedures well as risk. He is agreeable to proceed. -he is already on aspirin daily. -already on high-intensity statin -on calcium channel bee -start carvedilol 3.125 b.i.d. -continue losartan -okay to remain off hydralazine for now -can titrate meds after catheterization. Thank you for allowing me to participate in the care of your patient. Do not hesitate to call with question or concerns. Be advised that voice recognition software has been used on this chart and inadvertent errors may occur. These may not represent a true interpretation of the dictation given. Karissa Flores DO [facility] documented in this encounter Miscellaneous Notes * Addendum Note - Susan Porras - 02/19/2019 10:11 AM CSTAddended by: CRUZ PORRAS on: 02/19/2019 10:11 AM Modules accepted: Orders OM SAW OPERATOR documented in this encounter Plan of Treatment Not on file documented as of this encounter Procedures Procedure Name Priority Date/Time Associated Diagnosis Comments EKG 12-LEAD Routine 01/25/2019 Cardiomyopathy, unspecified type (HCC) LBBB (left bundle branch block) Essential hypertension Tobacco use disorder documented in this encounter Results * EKG 12-LEAD (01/25/2019) Impressions Susan Porras - 01/25/2019 Normal sinus rhythm Left bundle branch block Abnormal ECG Interpreted by Dr. Flores Karissa Flores DO ECG ORDERABLES documented in this encounter Visit Diagnoses Diagnosis Cardiomyopathy, unspecified type (HCC)- Primary LBBB (left bundle branch block) Other left bundle branch block Essential hypertension Tobacco use disorder documented in this encounter Care Teams Maintenance Supervisor Mechanical Relationship Specialty Start Date End Date Natalie Lanier MD [address] [place] [address] PCP - General Internal Medicine 01/25/19 documented as of this encounter
--- OUTSIDE RECORDS SUMMARY | 2024-04-20 04:58 | XMS_ITS | Encounter Summary ---
Author Name [facility] [place] [facility] [place] [facility] [place] [facility] [place] Address [address] [place] [address] Care Team Providers Care Payroll Administrative Assistant Name Role Phone SHAMA LILLY Primary Care [...] Name Patient's Relationship to Policy Nichols [facility] Oct 29, 2012 Dec 27, 2026 [facility] [id number] [phone] MCCLELLANDALEC PATIENT OPTUM RX [facility] Oct 29, 2012 Dec 27, 2026 [facility] [id number] ALEC MCCLELLAND PATIENT Selected Encounter This section includes the information on record at [place] for the Encounter. Date/Time Encounter Type Encounter Description Reason Provider Source Feb 02, 2024 09:23 AM Outpatient Encounter TELEPHONE/MEDICIN E ICD-10-CM Z12.2 Encntr screen for malignant neoplasm of respiratory organs JADEN BUSTOS Encounter Template Text not used by [place] Assessments - Encounter Diagnoses This section includes the primary and secondary diagnoses documented for the Encounter. Date/Time Primary/Secondary Diagnosis Diagnosis Name Provider Source Feb 02, 2024 09:23 AM PRIMARY Encntr screen for malignant neoplasm of respiratory organs JADEN BUSTOS [facility] Plan of Treatment: Future Appointments (+ 6 months) and Future Tests (+/- 45 days) The Plan of Treatment section includes future care activities for the patient [facility] This section includes future appointments and future orders which are active, pending or scheduled. Future Appointments This section includes appointments that were scheduled to occur 6 months from the date of the Encounter, up to a maximum of 20 appointments. The data comes from all [place] treatment facilities. Appointment Date/Time Appointment Type Appointme nt Facility Name Apr 23, 2024 01:40 PM AMBULATORY - MEDICINE [facility] Jun 23, 2024 10:30 AM AMBULATORY - MEDICINE [facility] Jul 19, 2024 12:20 PM AMBULATORY - MEDICINE [facility] Social History: Smoking Status (Most current) [...] AM TOBACCO MEDS OFFER ED BUT DECLINED [facility] Advance Directives: All historical and current [...] 2019 ADVANCE DIRECTIVE DISCUSSION JJ REZA [facility] Encounter Notes: All associated encounter notes This section contains the clinical notes associated to the Encounter. Date/Time Encounter Note(s) Provider Source Feb 02, 2024 09:24 AM PHYSICIAN LETTERS: LOCAL TITLE: TEST RESULT GENERAL LETTER STL STANDARD TITLE: PHYSICIAN LETTERS DATE OF NOTE: FEB 02, 2024@09:24 ENTRY DATE: FEB 02, 2024@09:24:42 AUTHOR: JADEN BUSTOS COSIGNER: URGENCY: STATUS: COMPLETED [facility] [address] [place] [address] FEB 02, 2024 JAHAIRA MCCLELLAND [address] [place] [address] Dear Jahaira Mcclelland, You are late for your lung cancer screening CT scan. Lung cancer is treatable, and patients do better if it is found early. Attempts to reach you and schedule you for your annual LDCT have been made and have been unsuccessful. Routine screenings are the best way to detect early stage lung cancer. If you do not complete your annual LDCT we will disenroll you due to failure to comply with the Lung Cancer Screening Program. Call Imaging today at [phone], [phone] (option #1) to schedule this appointment as soon as possible. If you still smoke cigarettes, we can help you quit. We understand that quitting cigarette smoking is difficult, but it is the best way to improve your health. When you want help, let your primary care provider know. You can also call 1-320-XNDQ-VET ( ) or visit [place].smokefree.gov. Please contact us with questions or concerns about lung cancer screening. LCS Coordinator Jaden Bustos : . FUTURE APPOINTMENTS: 06/23/2024 10:30 [facility] CLR PACT 3 PCP 07/19/2024 12:20 [facility]RE[facility] SHIEH Sincerely, JADEN BUSTOS MSN, ANP-BC Adult Nurse Practitioner JAHAIRA MCCLELLAND [facility] Feb 02, 2024 09:23 AM INTERNAL MEDICINE NOTE: LOCAL TITLE: LUNG CANCER SCREENING TELEPHONE STL STANDARD TITLE: INTERNAL MEDICINE NOTE DATE OF NOTE: FEB 02, 2024@09:23 ENTRY DATE: FEB 02, 2024@09:23:32 AUTHOR: JADEN BUSTOS EXP COSIGNER: URGENCY: STATUS: COMPLETED LUNG CANCER SCREENING TELEPHONE STL Has ADDENDA Notified failed not reachable to schedule LDCT. I have left him a message. In the meantime, I will reorder the scan and send a letter. /darwin/ JADEN BUSTOS MSN, ANP- Adult Nurse Practitioner Signed: 02/02/2024 09:24 02/27/2024 ADDENDUM STATUS: COMPLETED Scan reordered for second time today. Will consider disenrollment if no response to next try. /darwin/ JADEN BUSTOS MSN, ANP-BC Adult Nurse Practitioner Signed: 02/27/2024 09:53 JADEN BUSTOS [facility]
--- OUTSIDE RECORDS SUMMARY | 2024-04-20 04:58 | XMS_ITS | Encounter Summary ---
Author Name [facility] [place] Organization [facility] [facility] [place] Address [address] [place] [address] Care Team Providers Care Hat Maker Name Role Phone SHAMA LILLY Primary [...] Name Patient's Relationship to Policy Nichols [facility] Oct 29, 2012 Dec 27, 2026 [facility] [id number] [phone] ALEC MORATAYA PATIENT OPTUM RX [facility] Oct 29, 2012 Dec 27, 2026 [facility] [id number] [phone] ALEC MORATAYA PATIENT Selected Encounter This section includes the information on record at DC for the Encounter. Date/Time Encounter Type Encounter Description Reason Provider Source Dec 30, 2023 02:35 PM HC PRO PHONE CALL 5-10 MIN TELEPHONE/MEDICIN E ICD-10-CM J44.9 Chronic obstructive pulmonary disease, unspecified BRISEYDA BUI April Encounter Template Text not used by [place] Assessments - Encounter Diagnoses This section includes the primary and secondary diagnoses documented for the Encounter. Date/Time Primary/Secondary Diagnosis Diagnosis Name Provider Source Dec 30, 2023 02:35 PM PRIMARY Chronic obstructive pulmonary disease, unspecified RAMYAJENNIEBUCK WANDA Galloway [facility] Plan of Treatment: Future Appointments (+ 6 months) and Future Tests (+/- 45 days) The Plan of Treatment section includes future care activities for the patient from all [place] treatmentfacilities. This section includes future appointments and [...] 23, 2024 01:40 PM AMBULATORY - MEDICINE [facility] Jun 23, 2024 10:30 AM AMBULATORY - MEDICINE [facility] Lab Results: +/- 30 days of [...] Range Comment Dec 23, 2023 01:05 PM [facility] PROST. SPECIFIC AG.(PB-STL) Specimen Type: SERUM Comment: The listed sex of this patient may not be a typical indication for this test. Therefore, reference ranges or interpretive criteria listed may not be valid. Clinical correlation suggested. Ordering Provider: SHAMA LILLY Report Released Date/Time: Dec 23, 2023 12:37 PM Reporting Lab: [facility] [address] [place] [address] Performing Lab: [facility] [address] [facility] [facility] [address] PROST. SPECIFIC AG.(PB-STL) 1.504 ng/mL 0-4 Dec 23, 2023 01:05 PM [facility] LIPID PANEL (STL) Specimen Type: PLASMA No comment entered. Ordering Provider: SHAMA LILLY Report Released Date/Time: Dec 23, 2023 12:37 PM Reporting Lab: [facility] [address] [place] [phone] Performing Lab: [address] [address] CHOLESTEROL 106 mg/dL 0-200 TRIGLYCERIDE 197 mg/dL H 0-150 CALCULATED LDL 41 mg/dL HDL(New) 26 mg/dL L >40 Dec 23, 2023 01:05 PM [facility] TSH (MA-PB) Specimen Type: SERUM Comment: The listed sex of this patient may not be a typical indication for this test. Therefore, reference ranges or interpretive criteria listed may not be valid. Clinical correlation suggested. Ordering Provider: SHAMA LILLY Report Released Date/Time: Dec 23, 2023 12:37 PM Reporting Lab: [address] [address] Performing Lab: [address] [address] TSH 1.531 u[IU]/mL 0.47-5 Dec 23, 2023 01:05 PM [facility] URIC ACID Specimen Type: PLASMA No comment entered. Ordering Provider: SHAMA LILLY Report Released Date/Time: Dec 23, 2023 12:37 PM Reporting Lab: [facility] [address] [place] [phone] Performing Lab: [address] [address] URIC ACID 7.7 mg/dL H 3.5-7.2 Dec 23, 2023 01:05 PM [facility] HGA1C Specimen Type: BLOOD No comment entered. Ordering Provider: SHAMA LILLY Report Released Date/Time: Dec 23, 2023 12:37 PM Reporting Lab: [address] [address] Performing Lab: [address] [address] HGA1C 7.9 H 4.0-6.0 Dec 23, 2023 01:05 PM [facility] URINALYSIS (STL-PB) Specimen Type: URINE Comment: [...] 2023 12:37 PM Reporting Lab: [facility] [address] [facility] [address] Performing Lab: [facility] [address] [place] [address] URINE COLOR Light-Yellow Yellow U.BILIRUBIN Negative mg/dL [...] 2023 02:41 PM VA-TOBACCO NEVER USED [facility] Tobacco Use History This section includes a history of the smoking, or tobacco-related health factors, that were collected on or before the date of the Encounter. The data comes from the [place] facility where the Encounter took place. Date/Time Smoking Status/Tobacco Use Comment F ackelsy Jul 06, 2019 01:16 AM ORYX ADMIT TOBACCO SCREEN NO [facility] Feb 16, 2019 10:39 PM ORYX ADMIT TOBACCO SCREEN NO [facility] Nov 20, 2015 11:29 AM CURRENT TOBACCO USER [facility] Nov 20, 2015 11:29 AM TOBACCO MEDS OFFER ED BUT DECLINED [facility] Dec 26, 2014 09:53 AM CURRENT TOBACCO USER [facility] Dec 26, 2014 09:53 AM TOBACCO MEDS OFFER ED BUT DECLINED [facility] Advance Directives: All historical and [...] ADVANCE DIRECTIVE DISCUSSION JJ REZA [facility] Encounter Notes: All associated encounter notes This section contains the clinical notes associated to the Encounter. Date/Time Encounter Note(s) Provider Source Dec 30, 2023 02:35 PM NURSING TELEPHONE ENCOUNTER NOTE: LOCAL TITLE: TANIKA TELEPHONE CONTACT [facility] STANDARD TITLE: NURSING TELEPHONE ENCOUNTER NOTE DATE OF NOTE: DEC 30, 2023@14:35 ENTRY DATE: DEC 30, 2023@14:35:22 AUTHOR: YASMIN BUI COSIGNER: URGENCY: STATUS: COMPLETED TANIKA TELEPHONE CONTACT [facility] Has ADDENDA [facility] called requesting to talk to Joselyn Najera POWERHOUSE OPERATOR about a breathing doctor appointment she was suppose to arrange. After review of chart appointment w/ Dr. Ann was made 12/19/23 and was a no show. states she was unaware of appointment. According to Pulmonary note in September to see Dr. Ann and then follow up w/ Joselyn Najera again. Mold Capper Helper discusses w/ Yaima MEI and will make appt. w/ Dr. Ann first. Development Editor made aware. Development Editor called and no answer to schedule appointment. Mold Capper Helper calls x2 . No answer and voicemail full. /darwin/ YASMIN BUI MSN,RN REGISTERED NURSE Signed: 12/30/2023 14:44 01/02/2024 ADDENDUM STATUS: COMPLETED Called to schedule appointment. No answer mailbox full. /darwin/ YASMIN ROYAL,RN REGISTERED NURSE Signed: 01/02/2024 10:10 YASMIN BUI [facility]
--- OUTSIDE RECORDS SUMMARY | 2024-04-20 04:58 | XMS_ITS | Encounter Summary ---
Author Name [facility] [place] Organization [place] Address [address] [place] [address] Care Team Providers Care Crusher Loader Equipment Operator Name Role Phone SHAMA LILLY Primary Care [...] Nichols's Name Patient's Relationship to Policy Nichols [facility] Oct 29, 2012 Dec 27, 2026 [facility] [id number] [phone] ALEC MORATAYA PATIENT OPTUM RX [facility] Oct 29, 2012 Dec 27, 2026 [facility] [id number] ALEC MORATAYA PATIENT Selected Encounter This section includes the information on record at [place] for the Encounter. Date/Time Encounter Type Encounter Description Reason Pro vider Source Mar 12, 2024 12:52 PM Outpatient Encounter ADMIN PAT ACTIVTIES (MASNONCT) [...] AMBULATORY - MEDICINE [facility] Jun 23, 2024 10:30 AM AMBULATORY - MEDICINE [facility] Jul 19, 2024 12:20 PM AMBULATORY - MEDICINE [facility] Social History: Smoking Status (Most [...] 06, 2019 ADVANCE DIRECTIVE DISCUSSION JJ REZA [facility] Encounter Notes: All associated encounter notes This section contains the clinical notes associated to the Encounter. Date/Time Encounter Note(s) Provider Source Mar 12, 2024 12:52 PM PHARMACY MEDICATIO N MGT NOTE: LOCAL TITLE: PHARMACY MEDICATION CONVERSION NOTE ST STANDARD TITLE: PHARMACY MEDICATION MGT NOTE DATE OF NOTE: MAR 12, 2024@12:52 ENTRY DATE: MAR 12, 2024@12:52:30 AUTHOR: CARLENE LEIGH EXP COSIGNER: URGENCY: STATUS: COMPLETED Single box orders of Lantus Solostar pens have been entered as a bridge while glargine-YFGN is on backorder. This is not a non-formulary consult approval for Lantus and the Lantus orders are NOT to be renewed or refilled. The next glargine order is set to mail when this Lantus bridge should run out based on current dosing. /darwin/ Carlene Leigh RPh, MSHI, CPHIMS Clinical Pharmacist Signed: 03/12/2024 12:52 CARLENE LEIGH [facility]
--- OUTSIDE RECORDS SUMMARY | 2024-04-20 04:58 | XMS_ITS | Encounter Summary ---
Author Organization [facility] Address [address] [address] Care Team Providers Care Senior Caregiver Name Role Phone Trenton Linda MD Primary Care Provider [phone] Encounter Details Date Type Department Care Team (Latest Contact Info) Description 06/17/2015 Hospital Outpatient Visit [facility] [address] [place] [phone] Tana Granado MD [address] [place] [phone] Discharge Disposition: Home or Self Care Social History Tobacco Use Types Packs/Day Years Used Date Smoking Tobacco: Never Assessed Sex and Gender Information Value Date Recorded Sex Assigned at Not on file Gender Identity Not on file Sexual Orientation Not on file documented as of this encounter Plan of Treatment Not on file documented as of this encounter Visit Diagnoses Not on filedocumented in this encounter Care Teams Senior Caregiver Relationship Specialty Start Date End Date Trenton Linda MD PCP - General 03/02/15 01/24/19 documented as of this encounter
--- OUTSIDE RECORDS SUMMARY | 2024-04-20 04:58 | XMS_ITS | Encounter Summary ---
Author Organization [facility] Address [address] [place] [address] Care Team Providers Care Structural Engineering Project Manager Name Role Phone Trenton Linda MD Primary Care Provider [phone] Encounter Details Date Type Department Care Team (Latest Contact Info) Description 06/17/2015 Hospital Outpatient Visit Historic [facility] [address] [place] [id number] Discharge Disposition: Home or Self Care Social [...] Procedure Name Priority Date/Time Associated Diagnosis Comments MRI LUMBAR SPINE WWO CONTRAST Routine 06/17/2015 11:40 AM LUMBER SALES SUPERVISOR MRI THORACIC SPINE WWO CONT Routine 06/17/2015 11:40 AM LUMBER SALES SUPERVISOR MRI CERVICAL SPINE WWO CONT Routine 06/17/2015 11:40 AM LUMBER SALES SUPERVISOR MRI BRAIN WWO CONTRAST Routine 06/17/2015 10:54 AM LUMBER SALES SUPERVISOR CREATININE BLOOD - POCT (IP) [facility] Routine 06/17/2015 documented in this encounter Results * MRI LUMBAR SPINE WWO CONTRAST (06/17/2015 11:40 AM LUMBER SALES SUPERVISOR) Anatomical Region Laterality Modality Spine Other Impressions 06/17/2015 2:09 PM LUMBER SALES SUPERVISOR IMPRESSION: 1. Scattered predominantly subcortical T2 FLAIR hyperintensities without enhancement or diffusion restriction are grossly unchanged compared with prior study. No lesions in the brainstem or abnormal signal in the optic nerves identified. This is a nonspecific finding and can be seen in the setting of small vessel ischemic disease although given the patient's relatively young age, other etiologies would include sequela of prior inflammation such as vasculitis, a prior infectious process, prior trauma, or potentially a demyelinating process such as multiple sclerosis (although the pattern is somewhat atypical for multiple sclerosis). 2. T2 hyperintense mildly expansile lesion in the upper thoracic cord at the level of T1 and T2 without definite enhancement. This can be seen on the prior study from 2010 and may have minimally increased in size although direct comparison is difficult due to differences in technique between the studies. Differential considerations for this lesion would include sequela of prior injury to the cord, focal syrinx formation, a focal demyelinating plaque (which would be more typical of neuromyelitis optica than multiple sclerosis), sequela of a vascular malformation such as a dural AV fistula (although no abnormal flow voids to suggest this diagnosis are seen), or a low-grade tumor (although lack of contrast enhancement makes this less likely). I, Dr. DOMINIC FAJARDO M.D. have personally reviewed and interpreted this examination/study. This report was electronically signed by DOMINIC FAJARDO M.D. ??on 06/17/2015 2:09 PM . Narrative 06/17/2015 2:09 PM LUMBER SALES SUPERVISOR EXAMINATION: 1. Magnetic resonance imaging (MRI) of the brain without and with contrast 2. MRI of the cervical, thoracic, and lumbar spine without and with contrast HISTORY: Headache, bilateral lower extremity weakness, suspicious abnormalities on prior brain MRI, questionable multiple sclerosis. TECHNIQUE: MRI of the brain and cervical, thoracic, and lumbar spine was performed prior to and following the uneventful administration of 10 mLGadavist intravenous gadolinium contrast according to demyelinating protocol. FINDINGS: Comparison with outside brain MRI of 09/30/2014, 08/13/2012, and 05/30/2010 and MRI of the lumbar spine of August 13, 2012 and thoracic spine of 05/30/2010. Brain: Accounting for differences in technique, there has been no significant interval change of approximately 40 subcortical and to lesser extent periventricular FLAIR hyperintensities. No evidence of acute or chronic hemorrhage is identified. No evidence of acute cerebral infarction is seen. The ventricles are of normal size, shape, and morphology. No mass effect or midline shift is seen. ?? No enhancing lesions are identified. The corpus callosum and sella appear normal. The posterior fossa, brainstem, and craniocervical junction appear normal. The visualized portions of the orbits, paranasal sinuses, and mastoids appear normal. Normal flow voids are demonstrated in the carotid arteries and basilar artery. The calvarium appears normal. Cervical spine: Several sequences are degraded by motion artifact. There is mild retrolisthesis at C4-5. Vertebral bodies are normal in height without evidence of compression fractures. Marrow signal intensity is normal. Cervical cord appears grossly normal in signal. Multilevel degenerative disc disease with disc extrusion at C4-5 touching the anterior aspect of the cord and contributing to moderate central canal stenosis and multilevel facet and uncovertebral joint osteoarthritis without significant neural foraminal stenosis. ??A 3 mm T2 hyperintense nodule and a 1.3 cm T2 hyperintense nodule in the right lobe of the thyroid are noted. Thoracic spine: The alignment is normal. Vertebral bodies are normal in height without evidence of compression fractures. Marrow signal intensity is normal. There is a T2/STIR hyperintense lesion extending from the superior endplate of T1 to the inferior endplate of T2 which expands the cord in this region (series 8 image 7) and does not demonstrate enhancement. This can be seen on prior study from [facility] from 05/30/2010 (series 8 image 8). Although it is difficult to directly compare the studies due to differences in technique, this lesion appears more prominent on the current study. The intervertebral discs appear normal. No central canal stenosis is seen. The facets appear normal. No neural foraminal stenosis is seen. Lumbar spine: The alignment is normal. Vertebral bodies are normal in height without evidence of compression fractures. Marrow signal intensity is normal. The conus medullaris is at the level of L1 and the distal spinal cord appears normal. Disc desiccation present at L4-5. No abnormal enhancement noted in the lumbar spine. No significant central canal stenosis. Mild facet osteoarthritis at L4-5 and L5- S1 with mild neural foraminal stenosis. Bilateral renal cysts are noted. Procedure Note Dominic Fajardo MD - 07/12/2017 EXAMINATION: 1. Magnetic resonance imaging (MRI) of the brain without and withcontrast 2. MRI of the cervical, thoracic, and lumbar spine without and withcontrast HISTORY: Headache, bilateral lower extremity weakness, suspiciousabnormalities on prior brain MRI, questionable multiple sclerosis. TECHNIQUE: MRI of the brain and cervical, thoracic, and lumbar spine wasperformed prior to and following the uneventful administration of 10mLGadavist intravenous gadolinium contrast according to demyelinatingprotocol. FINDINGS: Comparison with outside brain MRI of 09/30/2014, 08/13/2012, and05/30/2010 and MRI of the lumbar spine of August 13, 2012 and thoracic spine of05/30/2010. Brain: Accounting for differences in technique, there has been no significantinterval change of approximately 40 subcortical and to lesser extentperiventricular FLAIR hyperintensities. No evidence of acute or chronic hemorrhage is identified. No evidence ofacute cerebral infarction is seen. The ventricles are of normal size,shape, and morphology. No mass effect or midline shift is seen. Noenhancing lesions are identified. The corpus callosum and sella appear normal. The posterior fossa, brainstem,and craniocervical junction appear normal. The visualized portions of the orbits, paranasal sinuses, and mastoidsappear normal. Normal flow voids are demonstrated in the carotid arteriesand basilar artery. The calvarium appears normal. Cervical spine: Several sequences are degraded by motion artifact. There is mild retrolisthesis at C4-5. Vertebral bodies are normal inheight without evidence of compression fractures. Marrow signal intensityis normal. Cervical cord appears grossly normal in signal. Multilevel degenerative disc disease with disc extrusion at C4-5 touchingthe anterior aspect of the cord and contributing to moderate central canalstenosis and multilevel facet and uncovertebral joint osteoarthritiswithout significant neural foraminal stenosis. A 3 mm T2 hyperintense nodule and a 1.3 cm T2 hyperintensenodule in the right lobe of the thyroid are noted. Thoracic spine: The alignment is normal. Vertebral bodies are normal in height withoutevidence of compression fractures. Marrow signal intensity is normal.There is a T2/STIR hyperintense lesion extending from the superiorendplate of T1 to the inferior endplate of T2 which expands the cord in this region (series 8 image 7) and does notdemonstrate enhancement. This can be seen on prior study from [facility] from 05/30/2010 (series 8 image 8). Although it isdifficult to directly compare the studies due to differences in technique, this lesion appears more prominent on thecurrent study. The intervertebral discs appear normal. No central canalstenosis is seen. The facets appear normal. No neural foraminal stenosisis seen. Lumbar spine: The alignment is normal. Vertebral bodies are normal in height withoutevidence of compression fractures. Marrow signal intensity is normal. Theconus medullaris is at the level of L1 and the distal spinal cord appearsnormal. Disc desiccation present at L4-5. No abnormal enhancement noted in thelumbar spine. No significant central canal stenosis. Mild facetosteoarthritis at L4-5 and L5- S1 with mild neural foraminal stenosis.Bilateral renal cysts are noted. IMPRESSION IMPRESSION: 1. Scattered predominantly subcortical T2 FLAIR hyperintensities withoutenhancement or diffusion restriction are grossly unchanged compared withprior study. No lesions in the brainstem or abnormal signal in the opticnerves identified. This is a nonspecific finding and can be seen in the setting of small vesselischemic disease although given the patient's relatively young age, otheretiologies would include sequela of prior inflammation such as vasculitis,a prior infectious process, prior trauma, or potentially a demyelinating process such as multiple sclerosis(although the pattern is somewhat atypical for multiple sclerosis). 2. T2 hyperintense mildly expansile lesion in the upper thoracic cord atthe level of T1 and T2 without definite enhancement. This can be seen onthe prior study from 2010 and may have minimally increased in sizealthough direct comparison is difficult due to differences in technique between the studies. Differentialconsiderations for this lesion would include sequela of prior injury tothe cord, focal syrinx formation, a focal demyelinating plaque (whichwould be more typical of neuromyelitis optica than multiple sclerosis), sequela of a vascular malformation such as adural AV fistula (although no abnormal flow voids to suggest thisdiagnosis are seen), or a low-grade tumor (although lack of contrastenhancement makes this less likely). I, Dr. DOMINIC FAJARDO M.D. have personally reviewed and interpreted thisexamination/study. This report was electronically signed by DOMINIC FAJARDO M.D. on 06/17/20152:09 PM . Tana Granado MD MR ORDERABLES * MRI THORACIC SPINE WWO CONT (06/17/2015 11:40 AM LUMBER SALES SUPERVISOR) Anatomical Region Laterality Modality Spine Other Impressions 06/17/2015 2:09 PM LUMBER SALES SUPERVISOR IMPRESSION: 1. Scattered predominantly subcortical T2 FLAIR hyperintensities without enhancement or diffusion restriction are grossly unchanged compared with prior study. No lesions in the brainstem or abnormal signal in the optic nerves identified. This is a nonspecific finding and can be seen in the setting of small vessel ischemic disease although given the patient's relatively young age, other etiologies would include sequela of prior inflammation such as vasculitis, a prior infectious process, prior trauma, or potentially a demyelinating process such as multiple sclerosis (although the pattern is somewhat atypical for multiple sclerosis). 2. T2 hyperintense mildly expansile lesion in the upper thoracic cord at the level of T1 and T2 without definite enhancement. This can be seen on the prior study from 2010 and may have minimally increased in size although direct comparison is difficult due to differences in technique between the studies. Differential considerations for this lesion would include sequela of prior injury to the cord, focal syrinx formation, a focal demyelinating plaque (which would be more typical of neuromyelitis optica than multiple sclerosis), sequela of a vascular malformation such as a dural AV fistula (although no abnormal flow voids to suggest this diagnosis are seen), or a low-grade tumor (although lack of contrast enhancement makes this less likely). I, Dr. DOMINIC FAJARDO M.D. have personally reviewed and interpreted this examination/study. This report was electronically signed by DOMINIC FAJARDO M.D. ??on 06/17/2015 2:09 PM . Narrative 06/17/2015 2:09 PM LUMBER SALES SUPERVISOR EXAMINATION: 1. Magnetic resonance imaging (MRI) of the brain without and with contrast 2. MRI of the cervical, thoracic, and lumbar spine without and with contrast HISTORY: Headache, bilateral lower extremity weakness, suspicious abnormalities on prior brain MRI, questionable multiple sclerosis. TECHNIQUE: MRI of the brain and cervical, thoracic, and lumbar spine was performed prior to and following the uneventful administration of 10 mLGadavist intravenous gadolinium contrast according to demyelinating protocol. FINDINGS: Comparison with outside brain MRI of 09/30/2014, 08/13/2012, and 05/30/2010 and MRI of the lumbar spine of August 13, 2012 and thoracic spine of 05/30/2010. Brain: Accounting for differences in technique, there has been no significant interval change of approximately 40 subcortical and to lesser extent periventricular FLAIR hyperintensities. No evidence of acute or chronic hemorrhage is identified. No evidence of acute cerebral infarction is seen. The ventricles are of normal size, shape, and morphology. No mass effect or midline shift is seen. ?? No enhancing lesions are identified. The corpus callosum and sella appear normal. The posterior fossa, brainstem, and craniocervical junction appear normal. The visualized portions of the orbits, paranasal sinuses, and mastoids appear normal. Normal flow voids are demonstrated in the carotid arteries and basilar artery. The calvarium appears normal. Cervical spine: Several sequences are degraded by motion artifact. There is mild retrolisthesis at C4-5. Vertebral bodies are normal in height without evidence of compression fractures. Marrow signal intensity is normal. Cervical cord appears grossly normal in signal. Multilevel degenerative disc disease with disc extrusion at C4-5 touching the anterior aspect of the cord and contributing to moderate central canal stenosis and multilevel facet and uncovertebral joint osteoarthritis without significant neural foraminal stenosis. ??A 3 mm T2 hyperintense nodule and a 1.3 cm T2 hyperintense nodule in the right lobe of the thyroid are noted. Thoracic spine: The alignment is normal. Vertebral bodies are normal in height without evidence of compression fractures. Marrow signal intensity is normal. There is a T2/STIR hyperintense lesion extending from the superior endplate of T1 to the inferior endplate of T2 which expands the cord in this region (series 8 image 7) and does not demonstrate enhancement. This can be seen on prior study from [facility] from 05/30/2010 (series 8 image 8). Although it is difficult to directly compare the studies due to differences in technique, this lesion appears more prominent on the current study. The intervertebral discs appear normal. No central canal stenosis is seen. The facets appear normal. No neural foraminal stenosis is seen. Lumbar spine: The alignment is normal. Vertebral bodies are normal in height without evidence of compression fractures. Marrow signal intensity is normal. The conus medullaris is at the level of L1 and the distal spinal cord appears normal. Disc desiccation present at L4-5. No abnormal enhancement noted in the lumbar spine. No significant central canal stenosis. Mild facet osteoarthritis at L4-5 and L5- S1 with mild neural foraminal stenosis. Bilateral renal cysts are noted. Procedure Note Pete, Dominic N, MD - 07/12/2017 EXAMINATION: 1. Magnetic resonance imaging (MRI) of the brain without and withcontrast 2. MRI of the cervical, thoracic, and lumbar spine without and withcontrast HISTORY: Headache, bilateral lower extremity weakness, suspiciousabnormalities on prior brain MRI, questionable multiple sclerosis. TECHNIQUE: MRI of the brain and cervical, thoracic, and lumbar spine wasperformed prior to and following the uneventful administration of 10mLGadavist intravenous gadolinium contrast according to demyelinatingprotocol. FINDINGS: Comparison with outside brain MRI of 09/30/2014, 08/13/2012, and05/30/2010 and MRI of the lumbar spine of August 13, 2012 and thoracic spine of05/30/2010. Brain: Accounting for differences in technique, there has been no significantinterval change of approximately 40 subcortical and to lesser extentperiventricular FLAIR hyperintensities. No evidence of acute or chronic hemorrhage is identified. No evidence ofacute cerebral infarction is seen. The ventricles are of normal size,shape, and morphology. No mass effect or midline shift is seen. Noenhancing lesions are identified. The corpus callosum and sella appear normal. The posterior fossa, brainstem,and craniocervical junction appear normal. The visualized portions of the orbits, paranasal sinuses, and mastoidsappear normal. Normal flow voids are demonstrated in the carotid arteriesand basilar artery. The calvarium appears normal. Cervical spine: Several sequences are degraded by motion artifact. There is mild retrolisthesis at C4-5. Vertebral bodies are normal inheight without evidence of compression fractures. Marrow signal intensityis normal. Cervical cord appears grossly normal in signal. Multilevel degenerative disc disease with disc extrusion at C4-5 touchingthe anterior aspect of the cord and contributing to moderate central canalstenosis and multilevel facet and uncovertebral joint osteoarthritiswithout significant neural foraminal stenosis. A 3 mm T2 hyperintense nodule and a 1.3 cm T2 hyperintensenodule in the right lobe of the thyroid are noted. Thoracic spine: The alignment is normal. Vertebral bodies are normal in height withoutevidence of compression fractures. Marrow signal intensity is normal.There is a T2/STIR hyperintense lesion extending from the superiorendplate of T1 to the inferior endplate of T2 which expands the cord in this region (series 8 image 7) and does notdemonstrate enhancement. This can be seen on prior study from [facility] from 05/30/2010 (series 8 image 8). Although it isdifficult to directly compare the studies due to differences in technique, this lesion appears more prominent on thecurrent study. The intervertebral discs appear normal. No central canalstenosis is seen. The facets appear normal. No neural foraminal stenosisis seen. Lumbar spine: The alignment is normal. Vertebral bodies are normal in height withoutevidence of compression fractures. Marrow signal intensity is normal. Theconus medullaris is at the level of L1 and the distal spinal cord appearsnormal. Disc desiccation present at L4-5. No abnormal enhancement noted in thelumbar spine. No significant central canal stenosis. Mild facetosteoarthritis at L4-5 and L5- S1 with mild neural foraminal stenosis.Bilateral renal cysts are noted. IMPRESSION IMPRESSION: 1. Scattered predominantly subcortical T2 FLAIR hyperintensities withoutenhancement or diffusion restriction are grossly unchanged compared withprior study. No lesions in the brainstem or abnormal signal in the opticnerves identified. This is a nonspecific finding and can be seen in the setting of small vesselischemic disease although given the patient's relatively young age, otheretiologies would include sequela of prior inflammation such as vasculitis,a prior infectious process, prior trauma, or potentially a demyelinating process such as multiple sclerosis(although the pattern is somewhat atypical for multiple sclerosis). 2. T2 hyperintense mildly expansile lesion in the upper thoracic cord atthe level of T1 and T2 without definite enhancement. This can be seen onthe prior study from 2010 and may have minimally increased in sizealthough direct comparison is difficult due to differences in technique between the studies. Differentialconsiderations for this lesion would include sequela of prior injury tothe cord, focal syrinx formation, a focal demyelinating plaque (whichwould be more typical of neuromyelitis optica than multiple sclerosis), sequela of a vascular malformation such as adural AV fistula (although no abnormal flow voids to suggest thisdiagnosis are seen), or a low-grade tumor (although lack of contrastenhancement makes this less likely). I, Dr. DOMINIC FAJARDO M.D. have personally reviewed and interpreted thisexamination/study. This report was electronically signed by DOMINIC FAJARDO M.D. on 06/17/20152:09 PM . Tana Granado MD MR ORDERABLES * MRI CERVICAL SPINE WWO CONT (06/17/2015 11:40 AM LUMBER SALES SUPERVISOR) Anatomical Region Laterality Modality Spine Other Impressions 06/17/2015 2:09 PM LUMBER SALES SUPERVISOR IMPRESSION: 1. Scattered predominantly subcortical T2 FLAIR hyperintensities without enhancement or diffusion restriction are grossly unchanged compared with prior study. No lesions in the brainstem or abnormal signal in the optic nerves identified. This is a nonspecific finding and can be seen in the setting of small vessel ischemic disease although given the patient's relatively young age, other etiologies would include sequela of prior inflammation such as vasculitis, a prior infectious process, prior trauma, or potentially a demyelinating process such as multiple sclerosis (although the pattern is somewhat atypical for multiple sclerosis). 2. T2 hyperintense mildly expansile lesion in the upper thoracic cord at the level of T1 and T2 without definite enhancement. This can be seen on the prior study from 2010 and may have minimally increased in size although direct comparison is difficult due to differences in technique between the studies. Differential considerations for this lesion would include sequela of prior injury to the cord, focal syrinx formation, a focal demyelinating plaque (which would be more typical of neuromyelitis optica than multiple sclerosis), sequela of a vascular malformation such as a dural AV fistula (although no abnormal flow voids to suggest this diagnosis are seen), or a low-grade tumor (although lack of contrast enhancement makes this less likely). I, Dr. DOMINIC FAJARDO M.D. have personally reviewed and interpreted this examination/study. This report was electronically signed by DOMINIC FAJARDO M.D. ??on 06/17/2015 2:09 PM . Narrative 06/17/2015 2:09 PM LUMBER SALES SUPERVISOR EXAMINATION: 1. Magnetic resonance imaging (MRI) of the brain without and with contrast 2. MRI of the cervical, thoracic, and lumbar spine without and with contrast HISTORY: Headache, bilateral lower extremity weakness, suspicious abnormalities on prior brain MRI, questionable multiple sclerosis. TECHNIQUE: MRI of the brain and cervical, thoracic, and lumbar spine was performed prior to and following the uneventful administration of 10 mLGadavist intravenous gadolinium contrast according to demyelinating protocol. FINDINGS: Comparison with outside brain MRI of 09/30/2014, 08/13/2012, and 05/30/2010 and MRI of the lumbar spine of August 13, 2012 and thoracic spine of 05/30/2010. Brain: Accounting for differences in technique, there has been no significant interval change of approximately 40 subcortical and to lesser extent periventricular FLAIR hyperintensities. No evidence of acute or chronic hemorrhage is identified. No evidence of acute cerebral infarction is seen. The ventricles are of normal size, shape, and morphology. No mass effect or midline shift is seen. ?? No enhancing lesions are identified. The corpus callosum and sella appear normal. The posterior fossa, brainstem, and craniocervical junction appear normal. The visualized portions of the orbits, paranasal sinuses, and mastoids appear normal. Normal flow voids are demonstrated in the carotid arteries and basilar artery. The calvarium appears normal. Cervical spine: Several sequences are degraded by motion artifact. There is mild retrolisthesis at C4-5. Vertebral bodies are normal in height without evidence of compression fractures. Marrow signal intensity is normal. Cervical cord appears grossly normal in signal. Multilevel degenerative disc disease with disc extrusion at C4-5 touching the anterior aspect of the cord and contributing to moderate central canal stenosis and multilevel facet and uncovertebral joint osteoarthritis without significant neural foraminal stenosis. ??A 3 mm T2 hyperintense nodule and a 1.3 cm T2 hyperintense nodule in the right lobe of the thyroid are noted. Thoracic spine: The alignment is normal. Vertebral bodies are normal in height without evidence of compression fractures. Marrow signal intensity is normal. There is a T2/STIR hyperintense lesion extending from the superior endplate of T1 to the inferior endplate of T2 which expands the cord in this region (series 8 image 7) and does not demonstrate enhancement. This can be seen on prior study from [facility] from 05/30/2010 (series 8 image 8). Although it is difficult to directly compare the studies due to differences in technique, this lesion appears more prominent on the current study. The intervertebral discs appear normal. No central canal stenosis is seen. The facets appear normal. No neural foraminal stenosis is seen. Lumbar spine: The alignment is normal. Vertebral bodies are normal in height without evidence of compression fractures. Marrow signal intensity is normal. The conus medullaris is at the level of L1 and the distal spinal cord appears normal. Disc desiccation present at L4-5. No abnormal enhancement noted in the lumbar spine. No significant central canal stenosis. Mild facet osteoarthritis at L4-5 and L5- S1 with mild neural foraminal stenosis. Bilateral renal cysts are noted. Procedure Note Dominic Fajardo MD - 07/12/2017 EXAMINATION: 1. Magnetic resonance imaging (MRI) of the brain without and withcontrast 2. MRI of the cervical, thoracic, and lumbar spine without and withcontrast HISTORY: Headache, bilateral lower extremity weakness, suspiciousabnormalities on prior brain MRI, questionable multiple sclerosis. TECHNIQUE: MRI of the brain and cervical, thoracic, and lumbar spine wasperformed prior to and following the uneventful administration of 10mLGadavist intravenous gadolinium contrast according to demyelinatingprotocol. FINDINGS: Comparison with outside brain MRI of 09/30/2014, 08/13/2012, and05/30/2010 and MRI of the lumbar spine of August 13, 2012 and thoracic spine of05/30/2010. Brain: Accounting for differences in technique, there has been no significantinterval change of approximately 40 subcortical and to lesser extentperiventricular FLAIR hyperintensities. No evidence of acute or chronic hemorrhage is identified. No evidence ofacute cerebral infarction is seen. The ventricles are of normal size,shape, and morphology. No mass effect or midline shift is seen. Noenhancing lesions are identified. The corpus callosum and sella appear normal. The posterior fossa, brainstem,and craniocervical junction appear normal. The visualized portions of the orbits, paranasal sinuses, and mastoidsappear normal. Normal flow voids are demonstrated in the carotid arteriesand basilar artery. The calvarium appears normal. Cervical spine: Several sequences are degraded by motion artifact. There is mild retrolisthesis at C4-5. Vertebral bodies are normal inheight without evidence of compression fractures. Marrow signal intensityis normal. Cervical cord appears grossly normal in signal. Multilevel degenerative disc disease with disc extrusion at C4-5 touchingthe anterior aspect of the cord and contributing to moderate central canalstenosis and multilevel facet and uncovertebral joint osteoarthritiswithout significant neural foraminal stenosis. A 3 mm T2 hyperintense nodule and a 1.3 cm T2 hyperintensenodule in the right lobe of the thyroid are noted. Thoracic spine: The alignment is normal. Vertebral bodies are normal in height withoutevidence of compression fractures. Marrow signal intensity is normal.There is a T2/STIR hyperintense lesion extending from the superiorendplate of T1 to the inferior endplate of T2 which expands the cord in this region (series 8 image 7) and does notdemonstrate enhancement. This can be seen on prior study from [facility] from 05/30/2010 (series 8 image 8). Although it isdifficult to directly compare the studies due to differences in technique, this lesion appears more prominent on thecurrent study. The intervertebral discs appear normal. No central canalstenosis is seen. The facets appear normal. No neural foraminal stenosisis seen. Lumbar spine: The alignment is normal. Vertebral bodies are normal in height withoutevidence of compression fractures. Marrow signal intensity is normal. Theconus medullaris is at the level of L1 and the distal spinal cord appearsnormal. Disc desiccation present at L4-5. No abnormal enhancement noted in thelumbar spine. No significant central canal stenosis. Mild facetosteoarthritis at L4-5 and L5- S1 with mild neural foraminal stenosis.Bilateral renal cysts are noted. IMPRESSION IMPRESSION: 1. Scattered predominantly subcortical T2 FLAIR hyperintensities withoutenhancement or diffusion restriction are grossly unchanged compared withprior study. No lesions in the brainstem or abnormal signal in the opticnerves identified. This is a nonspecific finding and can be seen in the setting of small vesselischemic disease although given the patient's relatively young age, otheretiologies would include sequela of prior inflammation such as vasculitis,a prior infectious process, prior trauma, or potentially a demyelinating process such as multiple sclerosis(although the pattern is somewhat atypical for multiple sclerosis). 2. T2 hyperintense mildly expansile lesion in the upper thoracic cord atthe level of T1 and T2 without definite enhancement. This can be seen onthe prior study from 2010 and may have minimally increased in sizealthough direct comparison is difficult due to differences in technique between the studies. Differentialconsiderations for this lesion would include sequela of prior injury tothe cord, focal syrinx formation, a focal demyelinating plaque (whichwould be more typical of neuromyelitis optica than multiple sclerosis), sequela of a vascular malformation such as adural AV fistula (although no abnormal flow voids to suggest thisdiagnosis are seen), or a low-grade tumor (although lack of contrastenhancement makes this less likely). IDr. DOMINIC M.D. have personally reviewed and interpreted thisexamination/study. This report was electronically signed by DOMINIC FAJARDO M.D. on 06/17/20152:09 PM . Tana Granado MD MR ORDERABLES * MRI BRAIN WWO CONTRAST (06/17/2015 10:54 AM LUMBER SALES SUPERVISOR) Anatomical Region Laterality Modality Head Other Impressions 06/17/2015 2:09 PM [employer]UMBER SALES SUPERVISOR IMPRESSION: 1. Scattered predominantly subcortical T2 FLAIR hyperintensities without enhancement or diffusion restriction are grossly unchanged compared with prior study. No lesions in the brainstem or abnormal signal in the optic nerves identified. This is a nonspecific finding and can be seen in the setting of small vessel ischemic disease although given the patient's relatively young age, other etiologies would include sequela of prior inflammation such as vasculitis, a prior infectious process, prior trauma, or potentially a demyelinating process such as multiple sclerosis (although the pattern is somewhat atypical for multiple sclerosis). 2. T2 hyperintense mildly expansile lesion in the upper thoracic cord at the level of T1 and T2 without definite enhancement. This can be seen on the prior study from 2010 and may have minimally increased in size although direct comparison is difficult due to differences in technique between the studies. Differential considerations for this lesion would include sequela of prior injury to the cord, focal syrinx formation, a focal demyelinating plaque (which would be more typical of neuromyelitis optica than multiple sclerosis), sequela of a vascular malformation such as a dural AV fistula (although no abnormal flow voids to suggest this diagnosis are seen), or a low-grade tumor (although lack of contrast enhancement makes this less likely). I, Dr. DOMINIC FAJARDO M.D. have personally reviewed and interpreted this examination/study. This report was electronically signed by DOMINIC FAJARDO M.D. ??on 06/17/2015 2:09 PM . Narrative 06/17/2015 2:09 PM LUMBER SALES SUPERVISOR EXAMINATION: 1. Magnetic resonance imaging (MRI) of the brain without and with contrast 2. MRI of the cervical, thoracic, and lumbar spine without and with contrast HISTORY: Headache, bilateral lower extremity weakness, suspicious abnormalities on prior brain MRI, questionable multiple sclerosis. TECHNIQUE: MRI of the brain and cervical, thoracic, and lumbar spine was performed prior to and following the uneventful administration of 10 mLGadavist intravenous gadolinium contrast according to demyelinating protocol. FINDINGS: Comparison with outside brain MRI of 09/30/2014, 08/13/2012, and 05/30/2010 and MRI of the lumbar spine of August 13, 2012 and thoracic spine of 05/30/2010. Brain: Accounting for differences in technique, there has been no significant interval change of approximately 40 subcortical and to lesser extent periventricular FLAIR hyperintensities. No evidence of acute or chronic hemorrhage is identified. No evidence of acute cerebral infarction is seen. The ventricles are of normal size, shape, and morphology. No mass effect or midline shift is seen. ?? No enhancing lesions are identified. The corpus callosum and sella appear normal. The posterior fossa, brainstem, and craniocervical junction appear normal. The visualized portions of the orbits, paranasal sinuses, and mastoids appear normal. Normal flow voids are demonstrated in the carotid arteries and basilar artery. The calvarium appears normal. Cervical spine: Several sequences are degraded by motion artifact. There is mild retrolisthesis at C4-5. Vertebral bodies are normal in height without evidence of compression fractures. Marrow signal intensity is normal. Cervical cord appears grossly normal in signal. Multilevel degenerative disc disease with disc extrusion at C4-5 touching the anterior aspect of the cord and contributing to moderate central canal stenosis and multilevel facet and uncovertebral joint osteoarthritis without significant neural foraminal stenosis. ??A 3 mm T2 hyperintense nodule and a 1.3 cm T2 hyperintense nodule in the right lobe of the thyroid are noted. Thoracic spine: The alignment is normal. Vertebral bodies are normal in height without evidence of compression fractures. Marrow signal intensity is normal. There is a T2/STIR hyperintense lesion extending from the superior endplate of T1 to the inferior endplate of T2 which expands the cord in this region (series 8 image 7) and does not demonstrate enhancement. This can be seen on prior study from [facility] from 05/30/2010 (series 8 image 8). Although it is difficult to directly compare the studies due to differences in technique, this lesion appears more prominent on the current study. The intervertebral discs appear normal. No central canal stenosis is seen. The facets appear normal. No neural foraminal stenosis is seen. Lumbar spine: The alignment is normal. Vertebral bodies are normal in height without evidence of compression fractures. Marrow signal intensity is normal. The conus medullaris is at the level of L1 and the distal spinal cord appears normal. Disc desiccation present at L4-5. No abnormal enhancement noted in the lumbar spine. No significant central canal stenosis. Mild facet osteoarthritis at L4-5 and L5- S1 with mild neural foraminal stenosis. Bilateral renal cysts are noted. Procedure Note Dominic Fajardo MD - 07/12/2017 EXAMINATION: 1. Magnetic resonance imaging (MRI) of the brain without and withcontrast 2. MRI of the cervical, thoracic, and lumbar spine without and withcontrast HISTORY: Headache, bilateral lower extremity weakness, suspiciousabnormalities on prior brain MRI, questionable multiple sclerosis. TECHNIQUE: MRI of the brain and cervical, thoracic, and lumbar spine wasperformed prior to and following the uneventful administration of 10mLGadavist intravenous gadolinium contrast according to demyelinatingprotocol. FINDINGS: Comparison with outside brain MRI of 09/30/2014, 08/13/2012, and05/30/2010 and MRI of the lumbar spine of August 13, 2012 and thoracic spine of05/30/2010. Brain: Accounting for differences in technique, there has been no significantinterval change of approximately 40 subcortical and to lesser extentperiventricular FLAIR hyperintensities. No evidence of acute or chronic hemorrhage is identified. No evidence ofacute cerebral infarction is seen. The ventricles are of normal size,shape, and morphology. No mass effect or midline shift is seen. Noenhancing lesions are identified. The corpus callosum and sella appear normal. The posterior fossa, brainstem,and craniocervical junction appear normal. The visualized portions of the orbits, paranasal sinuses, and mastoidsappear normal. Normal flow voids are demonstrated in the carotid arteriesand basilar artery. The calvarium appears normal. Cervical spine: Several sequences are degraded by motion artifact. There is mild retrolisthesis at C4-5. Vertebral bodies are normal inheight without evidence of compression fractures. Marrow signal intensityis normal. Cervical cord appears grossly normal in signal. Multilevel degenerative disc disease with disc extrusion at C4-5 touchingthe anterior aspect of the cord and contributing to moderate central canalstenosis and multilevel facet and uncovertebral joint osteoarthritiswithout significant neural foraminal stenosis. A 3 mm T2 hyperintense nodule and a 1.3 cm T2 hyperintensenodule in the right lobe of the thyroid are noted. Thoracic spine: The alignment is normal. Vertebral bodies are normal in height withoutevidence of compression fractures. Marrow signal intensity is normal.There is a T2/STIR hyperintense lesion extending from the superiorendplate of T1 to the inferior endplate of T2 which expands the cord in this region (series 8 image 7) and does notdemonstrate enhancement. This can be seen on prior study from [facility] from 05/30/2010 (series 8 image 8). Although it isdifficult to directly compare the studies due to differences in technique, this lesion appears more prominent on thecurrent study. The intervertebral discs appear normal. No central canalstenosis is seen. The facets appear normal. No neural foraminal stenosisis seen. Lumbar spine: The alignment is normal. Vertebral bodies are normal in height withoutevidence of compression fractures. Marrow signal intensity is normal. Theconus medullaris is at the level of L1 and the distal spinal cord appearsnormal. Disc desiccation present at L4-5. No abnormal enhancement noted in thelumbar spine. No significant central canal stenosis. Mild facetosteoarthritis at L4-5 and L5- S1 with mild neural foraminal stenosis.Bilateral renal cysts are noted. IMPRESSION IMPRESSION: 1. Scattered predominantly subcortical T2 FLAIR hyperintensities withoutenhancement or diffusion restriction are grossly unchanged compared withprior study. No lesions in the brainstem or abnormal signal in the opticnerves identified. This is a nonspecific finding and can be seen in the setting of small vesselischemic disease although given the patient's relatively young age, otheretiologies would include sequela of prior inflammation such as vasculitis,a prior infectious process, prior trauma, or potentially a demyelinating process such as multiple sclerosis(although the pattern is somewhat atypical for multiple sclerosis). 2. T2 hyperintense mildly expansile lesion in the upper thoracic cord atthe level of T1 and T2 without definite enhancement. This can be seen onthe prior study from 2010 and may have minimally increased in sizealthough direct comparison is difficult due to differences in technique between the studies. Differentialconsiderations for this lesion would include sequela of prior injury tothe cord, focal syrinx formation, a focal demyelinating plaque (whichwould be more typical of neuromyelitis optica than multiple sclerosis), sequela of a vascular malformation such as adural AV fistula (although no abnormal flow voids to suggest thisdiagnosis are seen), or a low-grade tumor (although lack of contrastenhancement makes this less likely). I, Dr. DOMINIC FAJARDO M.D. have personally reviewed and interpreted thisexamination/study. This report was electronically signed by DOMINIC FAJARDO M.D. on 06/17/20152:09 PM . Tana Granado MD MR ORDERABLES * CREATININE BLOOD - POCT (IP) [facility] (06/17/2015) Creatinine POCT 0.95 0.3 - 1.3 mg/dL [facility] eGFR POCT 60 60 ml/min [facility] 06/17/2015 Omero Fagan MD LAB - POINT OF CARE ORDERABLES [facility] documented in this encounter Visit Diagnoses Diagnosis Weakness Other malaise and fatigue documented in this encounter Care Teams Structural Engineering Project Manager Relationship Specialty Start Date End Date Trenton Linda MD PCP - General 03/02/15 01/24/19 documented as of this encounter
--- OUTSIDE RECORDS SUMMARY | 2024-04-20 04:58 | XMS_ITS | Clinical Summary ---
Author Organization [facility] Address [address] [place] [address] Care Team Providers Care Box Stamper Name Role Phone Natalie Lanier MD Primary Care Provider [phone] Source Comments [facility],non-owned Affiliates and Associated Physician Practices is amultiple site organization consisting of ambulatory clinics and hospital sitesin [place], [place], [place] and [place]. This disclosure is being madepursuant to the Care Everywhere program and may not contain all information available regarding this patient. Last updated 18.[facility] Allergies No known active allergies Medications * Be aware that medications may not be up to date on this document. Alwaysverify current medications with the patient. Medication Sig Dispensed Refills Start Date End Date Status Aspirin 81 MG Take 81 mg by mouth Ac tive albuterol HFA (VENTOLIN HFA) 108 (90 Base) MCG/ACT inhaler Inhale 1 puff by mouth 10/25/2018 Active amLODIPine (NORVASC) 10 MG tablet Take 10 mg by mouth 01/05/2019 Activ e topiramate (TOPAMAX) 25 MG tablet Take 25 mg by mouth 01/05/2019 Activ e raNITIdine (ZANTAC) 150 MG tablet Take 150 mg by mouth Acti ve glipiZIDE (GLUCOTROL) 10 MG tablet Take 10 mg by mouth 11/06/2016 Activ e atorvastatin (LIPITOR) 80 MG tablet Take 80 mg by mouth 01/05/2019 Activ e fluticasone propionate (FLONASE) 50 MCG/ACT nasal spray [place] 1 spray into the nose 01/05/2019 Active insulin lispro (ADMELOG) 100 UNIT/ML vial Inject 7 Units subcutaneously 10/06/2018 Active BASAGLAR KWIKPEN (BASAGLAR) pen Inject 15 Units subcutaneously 10/06/2018 Active montelukast (SINGULAIR) 10 MG tablet Take 10 mg by mouth at bedtime Active losartan (COZAAR) 100 MG tablet Take 100 mg by mouth once daily Active carvedilol (COREG) 3.125 MG tablet Take 1 tablet by mouth 2 times daily 60 tablet 5 01/25/2019 Active Active Problems Problem Noted Date Diagnosed Date Weakness 06/28/2015 Social History Tobacco Use Types Packs/Day Years Used Date Smoking Tobacco: Every Day Smokeless Tobacco: Never Alcohol Use Standard Drinks/Week Comments No 0 (1 standard drink = 0.6 oz pur e alcohol) Sex and Gender Information Value Date Recorded Sex Assigned at Not on file Gender Identity Not on file Sexual Orientation Not on file Last Filed Vital Signs Vital Sign Reading Time Taken Comments Blood Pressure 150/76 01/25/2019 10:57 AM CDT Pulse 64 01/25/2019 10:57 AM CDT Temperature 37.3 ??C (99.1 ??F) 01/25/2019 1 0:57 AM CDT Respiratory Rate 18 07/04/2015 3:52 PM CDT Oxygen Saturation 95% 01/25/2019 10: 57 AM CDT Inhaled Oxygen Concentration - - Weight 105.8 kg (233 lb 3.2 oz) 019 10:57 AM CDT Height 172.7 cm (5' 8 ) 07/04/2015 3:52 PM CDT Body Mass Index 35.46 07/04/2015 3:52 PM CDT Plan of Treatment Health Maintenance Due Date Last Done Comments COLOGUARD (AGES 45-75) - COL ON CA SCREENING 1961 COLON MONITORING 1961 COLONOSCOPY - COLON CA SCREENING 1961 CT COLONOGRAPHY - COLON CA SCREENING 1961 Colorectal Cancer Screening 1961 FIT - COLON CA SCREENING 1961 FLEX SIG - COLON CA SCREENING 1961 PNEUMOCOCCAL VACCINE (1 of 2 - PCV) 12/29/1967 HEPATITIS C SCREENING 12/24/1979 DTAP/TDAP/TD VACCINES (1 - Tdap) 1980 ZOSTER VACCINE (1 of 2) 12/29/2011 Respiratory Syncytial Virus (RSV) Vaccine Pt: or over 60 yrs (1 - Risk 60-74 years 1-dose series) 2021 DEPRESSION SCREENING 04/14/2023 COVID-19 VACCINE (1 - 2023-2 5 season) 2023 INFLUENZA VACCINE (#1) 2023 HIV SCREENING Completed 06/28/2015 HEPATITIS B VACCINE Aged Out No longe r eligible based on patient's age to complete this topic HIB VACCINE Aged Out No longer eligi ble based on patient's age to complete this topic HPV VACCINE Aged Out No longer eligi ble based on patient's age to complete this topic MENINGOCOCCAL VACCINE Aged Out No yuval melisa eligible based on patient's age to complete this topic Procedures Procedure Name Priority Date/Time Associated Diagnosis Comments HIV-1 HIV-2 ANTIGEN/ANTIBODY Routine 06/28/2015 5:57 PM CDT from Last 3 Months or Most Recently Relevant to Health Maintenance Results * HIV-1 HIV-2 ANTIGEN/ANTIBODY (06/28/2015 5:57 PM CDT) HIV Antigen/Antibod y 1 & 2 Non-reacti ve Non-react pascual [facility] Comment: Neither HIV-1 p24 Antigen nor HIV-1/HIV-2 Antibodies are detected. ? Blood specimen (specimen) BLOOD SPECIMEN / Unknown 06/28/2015 5:57 PM CDT 06/28/2015 6:06 PM CDT Kennedy Brooks MD LAB - HEMATOLOGY ORD ERABLES [facility] [address] [phone] from Last 3 Months or Most Recently Relevant to Health Maintenance Care Teams Box Stamper Relationship Specialty Start Date End Date Natalie Lanier MD [address], [place] [id number] PCP - General Internal Medicine 01/25/19
--- OUTSIDE RECORDS SUMMARY | 2024-04-20 04:58 | XMS_ITS | Encounter Summary ---
Author Organization [facility] Address [address] [place] [address] Care Team Providers Care Antique Jewelry Repairer Name Role Phone Trenton Linda MD Primary Care Provider [phone] Encounter Details Date Type Department Care Team (Late st Contact Info) Description 01/07/2019 Orders Only [facility] [address] [place] [address] [address] [place] [address] Document, Scanned Social History Tobacco Use Types Packs/Day Years Used Date Smoking Tobacco: Every Day Alcohol Use Standard Drinks/Week Comments No 0 (1 standard drink = 0.6 oz pur e alcohol) Sex and Gender Information Value Date Recorded Sex Assigned at Not on file Gender Identity Not on file Sexual Orientation Not on file documented as of this encounter Plan of Treatment Not on file documented as of this encounter Procedures Procedure Name Priority Date/Time Associated Diagnosis Comments NM CARDIAC RESULTS ORDER Routine 05/02/2017 documented in this encounter Results * NM CARDIAC RESULTS ORDER (05/02/2017) Anatomical Region Laterality Modality Other Scanned Document NM ORDERABLES documented in this encounter Visit Diagnoses Not on filedocumented in this encounter Care Teams Antique Jewelry Repairer Relationship Specialty Start Date End Date Trenton Linda MD PCP - General 03/02/15 01/24/19 documented as of this encounter
--- OUTSIDE RECORDS SUMMARY | 2024-04-20 04:58 | XMS_ITS | Encounter Summary ---
Author Organization [facility] Address [address] [place] [address] Care Team Providers Care Residential Counselor Name Role Phone Natalie Lanier MD Primary Care Provider [phone] Reason for Visit * Reason Onset Date Comments General 01/28/2019 Encounter Details Date Type Department Care Team (Late st Contact Info) Description 01/28/[address] [facility] Heart [facility] V[facility] [address] [place] [address] [address] [place] [address] [place] [address] [place] [address] [address] [place] [address] General Social History Tobacco Use Types Packs/Day Years Used Date Smoking Tobacco: Every Day Smokeless Tobacco: Never Alcohol Use Standard Drinks/Week Comments No 0 (1 standard drink = 0.6 oz pur e alcohol) Sex and Gender Information Value Date Recorded Sex Assigned at Not on file Gender Identity Not on file Sexual Orientation Not on file documented as of this encounter Miscellaneous Notes * Telephone Encounter - Susan Iraheta - 02/05/2019 11:10 AM CDT Spoke to Ramón at [facility] and scheduled pt for [facility] on February 19 at 10:30 AM. Pt instructed to arrive by 9:00 AM. Pt allergies reviewed and addressed, as appropriate. Pt to have lab work done no later than February at [facility]. Orders entered. Pt medications reviewed and addressed, as appropriate. Pt instructed not to eat or drink after Midnight. Pt verbalized understanding of all procedure instructions. Letter faxed to pt at [phone] with procedure scheduling information and instructions. Procedure added to provider's calendar. Backup will be Dr. Christianson and added to calendar. Referral entered and routed to Automation Mechanic, Jania Yepez. Susan Iraheta 02/05/2019 11:12 AM * Telephone Encounter - Susan Iraheta - 01/28/2019 10:41 AM CDT FYI: S/w pt's regarding [facility] appointment. Offered 03/13/19 at 7:30 am. stated that she has appointments that day and is unable to move them. Offered 03/12/19 at 9:30 and stated that pt has an appointment that day at 1:00pm and is unable to move appointment. Pt stated, You guys need to figure out a day for this procedure that will work. Pt stated that these days will not work for her and him: February 03, , , , , February 16, , , and . Informed pt that I will speak with Dr. Flores regarding the timing of this procedure and will try to figure out a different day. Patient's states understanding and has no questions or concerns. Message routed to Dr. Mark Iraheta 01/29/2019 10:27 AM documented in this encounter Plan of Treatment Not on file documented as of this encounter Visit Diagnoses Not on filedocumented in this encounter Care Teams Residential Counselor Relationship Specialty [place] [address] [place] [id number] PCP - General Internal Medicine 01/25/19 documented as of this encounter
--- OUTSIDE RECORDS SUMMARY | 2024-04-20 04:58 | XMS_ITS | Encounter Summary ---
Author Organization [facility] Address [address] [place] [address] Care Team Providers Care Parks Recreation Director Name Role Phone Natalie Lanier MD Primary Care Provider [phone] Reason for Visit * Reason Onset Date Comments General 02/17/2019 Encounter Details Date Type Department Care Team (Late st Contact Info) Description 02/17/2019 Telephone [facility] Heart & Vascular Care [address] [place] [address] [address] [place] [address] [place] [address] [place] [address] [address] [place] [address] General Social History Tobacco Use [...] * Telephone Encounter - Susan Iraheta - 02/17/2019 1:34 PM CST FYI: C scheduled for 02/19/19 at 10:30am is canceled due to pt currently in [facility] for non-cardiac issues. Canceled appointment and informed lab asst. Message routed to Dr. Flores as NICOLE Iraheta 02/17/2019 1:35 PM INFRASTRUCTURE PROJECT MANAGER documented in this encounter Plan of Treatment Not on file documented as of this encounter Visit Diagnoses Not on filedocumented in this encounter Care Teams Parks Recreation Director Relationship Specialty Start Date End Date Natalie Lanier MD [address] [place] [address] PCP - General Internal Medicine 01/25/19 documented as of this encounter
--- OUTSIDE RECORDS SUMMARY | 2024-04-20 04:58 | XMS_ITS | Encounter Summary ---
Author Name [facility] [place] Address [address] [place] [address] Care Team Providers Care Automatic Bow Maker Machine Tender Name Role Phone SHELL LILLY Primary Care [...] Nichols's Name Patient's Relationship to Policy Nichols [facility] Oct 29, 2012 Dec 27, 2026 [facility] [id number] [phone] ALEC MORATAYA PATIENT [facility] Oct 29, 2012 Dec 27, 2026 [facility] [id number] ALEC MORATAYA PATIENT Selected Encounter This section includes the information on record at CT for the Encounter. Date/Time Encounter Type Encounter Description Reason Provider Source Apr 08, 2024 08:38 AM Outpatient Encounter PULMONARY/CHEST FELIPE DO Encounter Template Text not used by CT Plan of Treatment: Future Appointments (+ 6 [...] 20 appointments. The data comes from all CT treatment facilities. Appointment Date/Time Appointment Type Appointme nt Facility Name Apr 23, 2024 01:40 PM AMBULATORY - MEDICINE [facility] Jun 23, 2024 10:30 AM AMBULATORY - MEDICINE [facility] Jul 19, 2024 12:20 PM AMBULATORY - MEDICINE [facility] Social History: Smoking Status (Most current) and Tobacco Use (All prior to encounter date) This section includes the most current, and the historical, smoking and tobacco- related health factors from the CT facility where the Encounter took place. Current Smoking Status This section includes the most current smoking, or tobacco-related health factor, from the CT facility where the Encounter took place. Date/Time Current Smoking Status Comment Arnulfo ity Jan 06, 2023 02:41 PM VA-TOBACCO NEVER USED [facility] Tobacco Use History This section includes a history of the smoking, or tobacco-related health factors, that were collected on or before the date of the Encounter. The data comes from the CT facility where the Encounter took place. Date/Time Smoking Status/Tobacco Use Comment F acility Jul 06, 2019 01:16 AM ORYX ADMIT TOBACCO SCREEN NO [facility] Feb 16, 2019 10:39 PM ORYX ADMIT TOBACCO SCREEN NO [facility] Nov 20, 2015 11:29 AM CURRENT TOBACCO USER [facility] Nov 20, 2015 11:29 AM TOBACCO MEDS OFFER ED BUT DECLINED [facility] Dec 26, 2014 09:53 AM CURRENT TOBACCO USER [facility] Dec 26, 2014 09:53 AM TOBACCO MEDS OFFER ED BUT DECLINED [facility] Advance Directives: All historical and current Section Date Range: From patient's date of to the date document was created. This section includes ALL of a patient's completed or amended VA Advance and Rescinded Directives. The entries below indicate that a directive exists for the patient, but an actual copy is not included with this document. The data comes from all CT facilities. Date Advance Directives Provider Source Jul 06, 2019 ADVANCE DIRECTIVE DISCUSSION JJ REZA [facility] Encounter Notes: All associated encounter notes This section contains the clinical notes associated to the Encounter. Date/Time Encounter Note(s) Provider Source Apr 08, 2024 08:40 AM INTERNAL MEDICINE NOTE: LOCAL TITLE: LUNG CANCER SCREENING ADMIN STL STANDARD TITLE: INTERNAL MEDICINE NOTE DATE OF NOTE: APR 08, 2024@08:40 ENTRY DATE: APR 08, 2024@08:40:10 AUTHOR: FELIPE DO EXP COSIGNER: URGENCY: STATUS: COMPLETED UNABLE TO TRACK NODULE: Tracking of lung nodule IS indicated per guidelines but cannot be done, e.g., patient declines, patient , care transferred to another site. Date of most recent follow-up image: Date: February 05, 2023 Most Recent Lung RADS Score: 1 Incidental Findings: No incidental findings were noted. Reason lung nodule will not be tracked: UNABLE TO TRACK PULMONARY NODULE: Patient has declined or failed to respond to scheduling attempts for recommended follow up chest CT for pulmonary nodule(s), but REMAINS ELIGIBLE FOR LUNG CANCER SCREENING AT THIS TIME. IF PATIENT BECOMES WILLING TO PROCEED WITH FOLLOW UP EXAM, PLEASE CONTACT LUNG CANCER SCREENING PROGRAM AT [phone] Plan: Patient will be discharged from screening program at this time, can be enrolled in the future if eligible and patient wishes to participate in lung cancer screening. Referring provider has been notified. letter sent to patient. Communicated to Primary Care Provider. /darwin/ FELIPE DO APRN NURSE PRACTITIONER, SURGERY SERVICE CCT Signed: 04/08/2024 08:42 Receipt Acknowledged By: 04/08/2024 10:56 /darwin/ Shell Lilly DNP, KANCHAN, [facility] Primary Care Nurse Practitioner FELIPE DO [facility] Apr 08, 2024 08:38 AM PHYSICIAN LETTERS: LOCAL TITLE: LCS LETTER STL STANDARD TITLE: PHYSICIAN LETTERS DATE OF NOTE: APR 08, 2024@08:38 ENTRY DATE: APR 08, 2024@08:38:28 AUTHOR: FELIPE DO EXP COSIGNER: URGENCY: STATUS: COMPLETED [address] [id number] [place] [address] Dear : You have failed to complete the Low Dose Chest CT for inclusion in the Lung cancer screening program. At least two orders for LDCT have been placed and Radiology has completed mandated scheduling efforts for both exams. Since you have not complied with annual screening reccomendations we have disenrolled you from the Lung Cancer Screening Program. If you wish to be re- enrolled please notify your Primary care provider. If you still smoke cigarettes, we can help you quit. We understand that quitting cigarette smoking is difficult, but it is the best way to improve your health. When you want help, let your primary care provider know. You can also call 8-913-QUWJ-VET ( ) or visit [employer].smokefree.gov. Please contact us with questions or concerns about lung cancer screening. Lung Cancer Screening Coordinator Felipe Do: Sincerely, FELIPE DO APRN NURSE PRACTITIONER, SURGERY SERVICE CCT JAHAIRA MORATAYA [facility]
--- OUTSIDE RECORDS SUMMARY | 2024-04-20 04:58 | XMS_ITS | Patient Health Summary ---
Author Organization [facility] Address [address] [place] [address] Care Team Providers Care Cardiovascular Disease Specialist Name Role Phone Natalie Lanier MD Primary Care Provider [phone] Note from Formerly named [facility],non-owned Affiliates and Associated Physician Practices is amultiple site organization consisting of ambulatory clinics and hospital sitesin [place], [place], [place] and [place]. This disclosure is being madepursuant to the Care Everywhere program and may not contain all information available regarding this patient. Last updated 18.[facility] Allergies No known active allergies Medications * Be aware that medications may not be up to date on this document. Alwaysverify current medications with the patient. * Aspirin 81 MG Take 81 mg by mouth * albuterol HFA (VENTOLIN HFA) 108 (90 Base) MCG/ACT inhaler(Started 10/25/2018) Inhale 1 puff by mouth * amLODIPine (NORVASC) 10 MG tablet(Started 01/05/2019) Take 10 mg by mouth * topiramate (TOPAMAX) 25 MG tablet(Started 01/05/2019) Take 25 mg by mouth * raNITIdine (ZANTAC) 150 MG tablet Take 150 mg by mouth * glipiZIDE (GLUCOTROL) 10 MG tablet(Started 11/06/2016) Take 10 mg by mouth * atorvastatin (LIPITOR) 80 MG tablet(Started 01/05/2019) Take 80 mg by mouth * fluticasone propionate (FLONASE) 50 MCG/ACT nasal spray(Started 01/05/2019) [place] 1 spray into the nose * insulin lispro (ADMELOG) 100 UNIT/ML vial(Started 10/06/2018) Inject 7 Units subcutaneously * BASAGLAR KWIKPEN (BASAGLAR) pen(Started 10/06/2018) Inject 15 Units subcutaneously * montelukast (SINGULAIR) 10 MG tablet Take 10 mg by mouth at bedtime * losartan (COZAAR) 100 MG tablet Take 100 mg by mouth once daily * carvedilol (COREG) 3.125 MG tablet(Started 01/25/2019) Take 1 tablet by mouth 2 times daily 5 refills remaining Active Problems Problem Noted Date Diagnosed Date [...] Mass Index 35.46 07/04/2015 3:52 PM CDT Procedures * PT-INR(Performed 02/12/2019) Performed for Pre-procedure lab exam * CBC W AUTO DIFFERENTIAL(Performed 02/12/2019) Performed for Pre-procedure lab exam * BASIC METABOLIC PANEL (CALCIUM TOTAL)(Performed 02/12/2019) Performed for Pre-procedure lab exam * EKG 12-LEAD(Performed 01/25/2019) Performed for Cardiomyopathy, unspecified type (HCC), LBBB (left bundle branch block), Essential hypertension, Tobacco use disorder * CARDIAC EKG ORDER(Performed 10/24/2018) * ECHOCARDIOGRAM 2D WITH DOPPLER(Performed 08/26/2018) * NM CARDIAC RESULTS ORDER(Performed 05/02/2017) * COPPER BLOOD(Performed 06/28/2015) * NEUROMYELITIS OPTICA ANTIBODY(Performed 06/28/2015) * MPO/NY 3 AUTOANTIBODIES PANEL(Performed 06/28/2015) * NEUTROPHIL CYTOPLASMIC ANTIBODY(Performed 06/28/2015) * METHYLMALONIC ACID BLOOD(Performed 06/28/2015) * DNA ANTIBODY DOUBLE STRANDED(Performed 06/28/2015) * BLOCK (SM) ANTIBODY DARRIUS(Performed 06/28/2015) * MACIE W/REFLEX IFA PATTERN(Performed 06/28/2015) * VITAMIN B12(Performed 06/28/2015) * HIV-1 HIV-2 ANTIGEN/ANTIBODY(Performed 06/28/2015) * RHEUMATOID FACTOR BLOOD QUANTITATIVE(Performed 06/28/2015) * GLUCOSE ACCUCHECK(Performed 06/28/2015) * HTLV-I/II ANTIBODY W REFLEX CONFIRM(Performed 06/28/2015) * PROTEIN CSF(Performed 06/28/2015) * GLUCOSE CSF(Performed 06/28/2015) * CYTOLOGY NON-MANAGER APPLICATION DEVELOPMENT PANEL (STL)(Performed 06/28/2015) * FLOW CYTOMETRY PANEL(Performed 06/28/2015) * OLIGOCLONAL BANDS CSF+BLOOD PANEL(Performed 06/28/2015) * RECEPTOR ANTIBODY NMO/AQP4 CSF(Performed 06/28/2015) * ANGIOTENSIN CONVERTING ENZYME CSF(Performed 06/28/2015) * CELL COUNT W DIFF CSF(Performed 06/28/2015) * DIFFERENTIAL MANUAL FLUID(Performed 06/28/2015) * CELL COUNT CSF(Performed 06/28/2015) * CULTURE CSF+GRAM STAIN(Performed 06/28/2015) * URINALYSIS REFLEX TO MICROSCOPIC NO CULTURE(Performed 06/28/2015) * COMPREHENSIVE METABOLIC PANEL(Performed 06/28/2015) * GLUCOSE ACCUCHECK(Performed 06/28/2015) * MRI LUMBAR SPINE WWO CONTRAST(Performed 06/17/2015) * MRI THORACIC SPINE WWO CONT(Performed 06/17/2015) * MRI CERVICAL SPINE WWO CONT(Performed 06/17/2015) * MRI BRAIN WWO CONTRAST(Performed 06/17/2015) * CREATININE BLOOD - POCT (IP) [facility](Performed 06/17/2015) Results * PT-INR (02/12/2019 12:09 PM CDT) [...] Resulting Agency Comment Lab Testing performed at: [facility] [address] ??[facility] [id number] Karissa Flores DO LAB - COAGULATION O RDERABLES [facility] INSURANCE BILL [address] [place] [address] * (ABNORMAL) CBC WITH DIFFERENTIAL (02/12/2019 12:09 [...] Resulting Agency Comment Lab Testing performed at: [facility] [address] ??[facility] [id number] Karissa Flores DO LAB - HEMATOLOGY OR DERABLES [facility] INSURANCE BILL [address] [place] [address] * (ABNORMAL) BASIC METABOLIC PANEL (CALCIUM TOTAL) [...] Resulting Agency Comment Lab Testing performed at: [employer] [place] [id number] [facility] ??[facility] [id number] Karissa Flores DO LAB - CHEMISTRY ORD ERABLES [facility] INSURANCE BILL [address] [place] [address] * EKG 12-LEAD (01/25/2019) Impressions BrianaEwelina martinezy - 01/25/2019 Normal sinus rhythm Left bundle branch block Abnormal ECG Interpreted by Dr. Flores Karissa Flores DO ECG ORDERABLES * CARDIAC EKG ORDER (10/24/2018) Scanned Document CARDIAC SERVICES ORD ERABLES * ECHOCARDIOGRAM 2D WITH DOPPLER (08/26/2018) Scanned Document ECHO ORDERABLES * NM CARDIAC RESULTS ORDER (05/02/2017) Anatomical Region Laterality Modality Other Scanned Document NM ORDERABLES * COPPER BLOOD (06/28/2015 6:33 PM CDT) Copper 115 72 - 166 ug/dL [facility] ([place]) Comment:Detection Limit = 5 Blood specimen (specimen) BLOOD SPECIMEN / Unknown 06/28/2015 6:33 PM CDT 06/28/2015 6:35 PM CDT Narrative [facility] ([place]) - 07/01/2015 8:30 AM CDT Performed at: ??01 - [address] ??[id number] Laboratory Animal Care Veterinarian: Kennedy Lara MD, Phone: ??[phone] Kennedy Brooks MD LAB - CHEMISTRY ORDE RABLES Performing Organization Address City/[facility]/ZIP Co de Phone Number [facility] ([facility]) * HIV-1 HIV-2 ANTIGEN/ANTIBODY (06/28/2015 5:57 PM CDT) [facility] HIV Antigen/Antibod y 1 & 2 Non-reacti ve Non-react pascual [facility] Comment: Neither HIV-1 p24 Antigen nor HIV-1/HIV-2 Antibodies are detected. ? Blood specimen (specimen) BLOOD SPECIMEN / Unknown 06/28/2015 5:57 PM CDT 06/28/2015 6:06 PM CDT Kenndey Brooks MD LAB - HEMATOLOGY ORD ERABLES Performing Organization Address City/[facility]/ZIP Co de Phone Number [address] [phone] * MACIE W/REFLEX IFA PATTERN (06/28/2015 5:57 PM CDT) [facility] MACIE None Detected None Detected [facility] Blood specimen (specimen) BLOOD SPECIMEN / Unknown 06/28/2015 5:57 PM CDT 06/28/2015 6:06 PM CDT Kennedy Brooks MD LAB - SEROLOGY ORDER DARION Performing Organization Address City/[facility]/ZIP Co de Phone Number [facility] [address] [phone] * NEUROMYELITIS OPTICA ANTIBODY (06/28/2015 5:57 PM CDT) [facility] NMO Antibody IgG <1.5 0.0 - 3.0 U/mL [facility] ([place]) Comment: ? Negative ? 0.0 - 3.0 ? Indeterminate ??3.1 - 5.0 ? Positive ?>5.1 Results for this test are for research purposes only by the assay's sales and marketing engineer. The performance characteristics of this product have not been established. Results should not be used as a diagnostic procedure without confirmation of the diagnosis by another medically established diagnostic product or procedure. Blood specimen (specimen) BLOOD SPECIMEN / Unknown 06/28/2015 5:57 PM CDT 06/28/2015 6:07 PM CDT Narrative [facility] ([place]) - 07/03/2015 5:10 PM CDT Performed at: ??01 - [address] ??[id number] Laboratory Animal Care Veterinarian: Kennedy Lara MD, Phone: ??[phone] Kennedy Brooks MD LAB - SEROLOGY ORDER DARION [facility]) * BLOCK (SM) ANTIBODY DARRIUS (06/28/2015 5:57 PM CDT) [facility] Block Antibody 2.8 0.0 - 19.9 Units [facility] Comment: DARRIUS Antibody Numeric Result Interpretation: ?<20.0 Units: ??Negative ?20.0 - 39.0 Units: ??Weakly Positive ?>39.0 Units: ??Positive ? Blood specimen (specimen) BLOOD SPECIMEN / Unknown 06/28/2015 5:57 PM CDT 06/28/2015 6:06 PM CDT Kennedy Brooks MD LAB - CHEMISTRY EUGENIO WU Performing Organization Address [facility]/ZIP Co de Phone Number [address] [phone] * RHEUMATOID FACTOR BLOOD QUANTITATIVE (06/28/2015 5:57 PM CDT) Rheumatoid Factor <15 <30 IU/mL [facility] Blood specimen (specimen) BLOOD SPECIMEN / Unknown 06/28/2015 5:57 PM CDT 06/28/2015 6:06 PM CDT Kennedy Brooks MD LAB - CHEMISTRY EUGENIO WU Performing Organization Address [facility] Co de Phone Number [address] [phone] * METHYLMALONIC ACID BLOOD (06/28/2015 5:57 PM CDT) Methylmalonic Acid 151 0 - 378 nmol/L [facility] Blood specimen (specimen) BLOOD SPECIMEN / Unknown 06/28/2015 5:57 PM CDT 06/28/2015 6:06 PM CDT Narrative [facility] ([place]) - 07/01/2015 8:08 PM CDT Performed at: ??01 - [address] ??[id number] Laboratory Animal Care Veterinarian: Kennedy Lara MD, Phone: ??[phone] Kennedy Brooks MD LAB - CHEMISTRY EUGENIO WU Performing Organization Address [facility]/ZIP Co de Phone Number [facility] ([facility]) * (ABNORMAL) NEUTROPHIL CYTOPLASMIC ANTIBODY (06/28/2015 5:57 PM CDT) Cytoplasmic (C-ANCA) <1:20 Neg:<1:20 titer [facility] ([facility]) p-ANCA <1:20 Neg:<1:20 titer [facility] ([facility]) Comment: The presence of positive fluorescence exhibiting P-ANCA or C-ANCA patterns alone is not specific for the diagnosis of Kuldeep's Granulomatosis (WG) or microscopic polyangiitis. Decisions about treatment should not be based solely on ANCA IFA results. ??The International ANCA Group Consensus recommends follow up testing of positive sera with both NY-3 and MPO-ANCA enzyme immunoassays. As many as 5% serum samples are positive only by EIA. Ref. AM J Clin Pathol 1999;111:507-513. Atypical p-ANCA 1:80(H) Neg:<1:20 titer [facility] ([facility]) Comment: The atypical pANCA pattern has been observed in a significant percentage of patients with ulcerative colitis, primary sclerosing cholangitis and autoimmune hepatitis. Blood specimen (specimen) BLOOD SPECIMEN / Unknown 06/28/2015 5:57 PM CDT 06/28/2015 6:06 PM CDT Narrative [facility] ([facility]) - 07/03/2015 3:15 PM CDT Performed at: ??01 - [address] ??[id number] Laboratory Animal Care Veterinarian: Steve Vidal PhD, Phone: ??[phone] Kennedy Brooks MD LAB - CHEMISTRY EUGENIO WU Performing Organization Address City/State/[facility] Co de Phone Number [facility] ([facility]) * DNA ANTIBODY DOUBLE STRANDED (06/28/2015 5:57 PM CDT) dsDNA Antibody 3 0 - 29 IU/mL [facility] Comment: dsDNA Antibody Numeric Result Interpretation: ? 0 - 29 IU/mL: ??Negative ?30 - 75 IU/mL: ??Borderline ?>75 IU/mL: ??Positive ? Blood specimen (specimen) BLOOD SPECIMEN / Unknown 06/28/2015 5:57 PM CDT 06/28/2015 6:06 PM CDT Kennedy Brooks MD LAB - HEMATOLOGY ORD ERABLES Performing Organization Address City/[facility]/ZIP Co de Phone Number [address] [phone] * MPO/NY 3 AUTOANTIBODIES PANEL (06/28/2015 5:57 PM CDT) Anti-myeloperox idase (MPO) Antibody <9.0 0.0 - 9.0 U/mL [facility] ([place]) Anti-Proteinase 3 (NY-3) Antibody <3.5 0.0 - 3.5 U/mL [facility] ([place]) Blood specimen (specimen) BLOOD SPECIMEN / Unknown 06/28/2015 5:57 PM CDT 06/28/2015 6:06 PM CDT Narrative [facility] ([place]) - 07/03/2015 3:15 PM CDT Performed at: ??01 - [address] ??[id number] Laboratory Animal Care Veterinarian: Kennedy Lara MD, Phone: ??[phone] Kennedy Brooks MD LAB - CHEMISTRY EUGENIO WU Performing Organization Address City/[facility]/ZIP Co de Phone Number [facility] ([facility]) * VITAMIN B12 (06/28/2015 5:57 PM CDT) Vitamin B12 708 213 - 816 pg/mL [facility] Blood specimen (specimen) BLOOD SPECIMEN / Unknown 06/28/2015 5:57 PM CDT 06/28/2015 6:06 PM CDT Kennedy Brooks MD LAB - CHEMISTRY EUGENIO WU Performing Organization Address City/[facility]/ZIP Co de Phone Number [address] [phone] * (ABNORMAL) GLUCOSE ACCUCHECK (06/28/2015 4:20 PM CDT) Only the most recent of2 resultswithin the time period is included. Glucose, Fingerstick 237(H) 70-115mg/d L mg/dL [facility] ([facility]) Comment:Bell Ringer: YAN SALAZAR 06/28/2015 4:20 PM CDT Kennedy Brooks MD LAB - CHEMISTRY ORDE RABLES Performing Organization Address [facility] Co de Phone Number [facility] ([facility]) * HTLV-I/II ANTIBODY W REFLEX CONFIRM (06/28/2015 3:51 PM CDT) Pathologist [facility] HTLV-1/2 Antibody Negative Negative [facility] ([facility]) Comment: Based on the non-reactive anti-HTLV GHASSAN screen, the HTLV Western Blot is not indicated and therefore not performed. Non-validated specimen type received. Test performed on cerebrospinal fluid. The validity of testing this fluid, the clinical significance, and the criteria for the interpretation of these antibody levels have not been established. Diagnosis of central nervous system infections can be accomplished by demonstrating the presence of intrathecally-produced specific antibody. Interpreting results may be complicated by low antibody levels found in CSF, passive transfer of antibody from blood, and contamination via bloody taps. INTERPRETIVE INFORMATION: ??HTLV I/II Antibodies w/Reflex ? to Confirm This assay should not be used for blood donor screening, associated re-entry protocols, or for screening Human Cell, Tissues and Cellular and Tissue-Based Products (HCT/P). Blood specimen (specimen) 06/28/2015 3:51 PM CDT 06/29/2015 8:30 AM CDT Narrative [facility] ([facility]) - 07/01/2015 10:49 PM CDT SPEC IS CSF ?? ; ?RUN WITH DISCLAIMER. Kennedy Brooks MD LAB - SEROLOGY ORDER DARION Performing Organization Address [facility] de Phone Number [facility] ([facility]) * (ABNORMAL) PROTEIN CSF (06/28/2015 3:51 PM CDT) Protein CSF 48(H) 15 - 45 mg/dL [facility] Spinal fluid (substance) CEREBROSPINAL FLUID SPECIMEN / Unknown 06/28/2015 3:51 PM CDT 06/28/2015 3:51 PM CDT Kennedy Brooks MD LAB - BODY FLUID ORD ERABLES Performing Organization Address [facility] Co de Phone Number [address] [phone] * (ABNORMAL) GLUCOSE CSF (06/28/2015 3:51 PM CDT) Glucose CSF 123(H) 40 - 70 mg/dL [facility] Spinal fluid (substance) CEREBROSPINAL FLUID SPECIMEN / Unknown 06/28/2015 3:51 PM CDT 06/28/2015 3:51 PM CDT Kennedy Brooks MD LAB - BODY FLUID ORD ERABLES Performing Organization Address [facility] de Phone Number [address] [phone] * CYTOLOGY NON-MANAGER APPLICATION DEVELOPMENT PANEL (STL) (06/28/2015 3:32 PM CDT) Cytology Non-Securities And Real Estate Director Reference: [id number] Specimen: CSF Clinical History: ? MS Gross Description: 1.5cc clear fluid Preparation Method: 1 Diff Quik stained Cytospin slide SPECIMEN ADEQUACY: ?- ??SATISFACTORY FOR EVALUATION FINAL DIAGNOSIS: CEREBROSPINAL FLUID ?- ??NEGATIVE FOR MALIGNANCY MICROSCOPIC DESCRIPTION: Material reviewed: 1 Diff Quik stained Cytospin slide Review of slide prepared reveals some histiocytes. ??Very rare lymphocytes are also seen along with occasional RBCs. No abnormality is seen. COMMENT(S): This case has been personally reviewed and interpreted by the attending (teaching) pathologist. Initial Evaluation performed by Mercia Patrick CT(ASCP). Electronically signed 06/29/2015 Final Diagnosis performed by Johnathan Chavez MD. Electronically signed 06/29/2015 [facility] ([place]) Other (qualifier value) 06/28/2015 3:32 PM CDT 06/28/2015 3:44 PM CDT Narrative [facility] ([place]) - 06/29/2015 3:49 PM CDT Diagnosis->? MS Collection Date->06/28/15 Collection Time-> 3:21 PM Specimen A->Cerebrospinal Fluid Kennedy Brooks MD LAB - PATHOLOGY/CYTO LOGY ORDERABLES [facility] ([place]) * FLOW CYTOMETRY PANEL (06/28/2015 3:32 PM CDT) Flow Cytometry Results Specimen: CSF Reference: [id number] Reason for test: CSF Markers: NA DIAGNOSIS: CEREBROSPINAL FLUID, FLOW CYTOMETRIC IMMUNOPHENOTYPIC ANALYSIS: - INSUFFICIENT CELLS FOR FLOW CYTOMETRIC ANALYSIS (SEE DESCRIPTION) Flow Cytometry Results: Differential ?Result ?Comment %VIABILITY * ? No viable cells are available for analysis Peripheral Blood Lymphocyte Adult Normal Reference Range (%) except CD4/CD8 CD1 ? 0 ? CD24 ?11-19 CD2 ? 74-94 ? CD25 ?5-17 CD3 ? 54-94 ? CD33 ?0-7 CD4 ? 40-56 ? CD34 ?0-3 CD4/CD8 ? (0.7-2.7) ?? CD38 ?15-55 CD5 ? 57-93 ? CD45 ?97-100 CD7 ? 58-82 ? CD56 ?6-26 CD8 ? 17-45 ? CD57 ?0-26 CD10 ?1-9 ? CD117 ? 0 CD11b ? 14-42 ? CD138 ? 0-1 CD11c ? 4-14 ?IgG ? 0-7 CD13 ?0-4 ? IgM ? 4-16 CD14 ?0-11 ?IgA ? 2-6 CD15 ?0-1 ? IgD ? 3-15 CD16 ?0-23 ?[place] ? 3-12 CD19 ?8-24 ?Lambda ?3-7 CD20 ?7-17 ?HLA-DR ?9-25 CD23 ?2-16 ?TdT ? 0 Peripheral Blood Monocyte Region Adult Normal Reference Range (%) CD1 ? 0-2 ? CD24 ?0-28 CD2 ? 0-28 ?CD25 ?5-17 CD3 ? 0-13 ?CD33 ?74-100 CD4 ? 20-100 ?CD34 ?0-5 CD5 ? 0-16 ?CD38 ?65-100 CD7 ? 0-3 ? CD45 ?97-100 CD8 ? 0-16 ?CD56 ?0-18 CD10 ?11-39 ? CD57 ?0-8 CD11b ? 84-100 ?CD117 ? 0-1 CD11c ? 89-100 ?CD138 ? 0-1 CD13 ?63-100 ?IgG ? 46-98 CD14 ?79-99 ? IgM ? 0-15 CD15 ?0-37 ?IgA ? 0-16 CD16 ?0-34 ?IgD ? 0-20 CD19 ?0-48 ?[place] ? 0-6 CD20 ?0-10 ?Lambda ?0-7 CD23 ?0-13 ?HLA-DR ?67-100 TdT ? 0 * The established laboratory minimum viability is 70%. Values below this minimum may result in the failure to find an abnormal population of cells. Test performed at [facility], [address] [place] [address] ??[id number] This test was developed and its performance characteristics determined by [facility]. It has not been cleared by the U.S. Food and Drug Administration. The FDA has determined that such clearance or approval is not necessary. This test is used for clinical purposes. It should not be regarded as investigational or for research. This laboratory is regulated under the Clinical Laboratory Improvement Amendments of 1998 (CLIA) as qualified to perform high complexity clinical testing. IMMUNOPHENOTYPE AND MORPHOLOGY: Preliminary analysis of the specimen designated as cerebrospinal fluid demonstrates too few cells for flow cytometric analysis. Review of the cytospin prepared from the flow cytometry specimen in the [facility] Department of Pathology for quality control coordinator purposes demonstrates rare small, mature appearing lymphocytes, rare neutrophils, and rare monocytes, rare eosinophils, in a background of mature red blood cells, and a few degenerating cells. Flow cytometry is not performed. KM/JF This case has been personally reviewed and interpreted by the attending (teaching) pathologist. Final Diagnosis performed by Briana De Jesus MD. Electronically signed 06/29/2015 [facility] ([facility]) Other (qualifier value) MISCELLANEOUS SAMPLES / Unknown 06/28/2015 3:32 PM CDT 06/28/2015 3:54 PM CDT Kennedy Brooks MD LAB - HEMATOLOGY ORD ERABLES [facility] ([facility]) * (ABNORMAL) CELL COUNT CSF (06/28/2015 3:31 PM CDT) Color Fluid Colorless Colorless, Straw [facility] Clarity Fluid Clear Clear [facility] Volume Fluid 1.5 mL [facility] WBC Calculation Fluid 5 0 - 5 /uL [facility] RBC Calculation 388(H) 0 /uL [facility] Xanthochromia Fluid Negative Negative [facility] Differential Manual Differential to follow. [facility] Spinal fluid (substance) CEREBROSPINAL FLUID SPECIMEN / Unknown 06/28/2015 3:31 PM CDT 06/28/2015 3:43 PM CDT Narrative [facility] - 06/28/2015 4:30 PM CDT Csf tube 4 Kennedy Brooks MD LAB - BODY FLUID ORD ERABLES [place] [id number] [address] [phone] * (ABNORMAL) DIFFERENTIAL MANUAL FLUID (06/28/2015 3:31 PM CDT) Segs % Fluid 30(H) 0 - 6 % [facility] Lymphocytes % Fluid 30(L) 40 - 80 % [facility] Monocytes % Fluid 30 15 - 45 % [facility] Eosinophils % Fluid 3 % [facility] Macrophages % Fluid 7 % [facility] Spinal fluid (substance) CEREBROSPINAL FLUID SPECIMEN / Unknown 06/28/2015 3:31 PM CDT 06/28/2015 4:29 PM CDT Narrative [facility] - 06/28/2015 4:36 PM CDT Only 30 cells seen on stained slide to count diff. No reference range established for other differential results. Kennedy Brooks MD LAB - BODY FLUID ORD ERABLES [facility] [address] [phone] * RECEPTOR ANTIBODY NMO/AQP4 CSF (06/28/2015 3:31 PM CDT) Pathologist [facility] NMO/AQP4-IGG CBA, CSF Negative Negative [facility] ([place]) Comment: Recommend repeat testing in 6 months if clinical suspicion is high. Negative result can occur in the setting of immunosuppression. Spinal fluid (substance) CEREBROSPINAL FLUID SPECIMEN / Unknown 06/28/2015 3:31 PM CDT 06/28/2015 3:49 PM CDT Narrative [facility] ([facility]) - 07/03/2015 8:10 PM CDT Performed at: ??01 - [facility] [address] [place], [place] ??[id number] Laboratory Animal Care Veterinarian: Kennedy Flor , Phone: ??[phone] Kennedy Brooks MD LAB - BODY FLUID ORD ERABLES [facility] ([facility]) * (ABNORMAL) OLIGOCLONAL BANDS CSF+BLOOD PANEL (06/28/2015 3:31 PM CDT) Oligoclonal Bands CSF 2(H) 0 - 1 Bands [facility] ([facility]) IgG 1100 768 - 1632 mg/dL [facility] ([facility]) Comment: REFERENCE INTERVAL: Immunoglobulin G Access complete set of age- and/or gender-specific reference intervals for this test in the [facility] Laboratory Test Directory (Synference). IgG CSF 4.1 0.0 - 6.0 mg/dL [facility] ([facility]) Albumin by Nephelometry 3880 3500 - 5200 mg/dL [facility] ([facility]) Albumin CSF 29 0 - 35 mg/dL [facility] ([facility]) Albumin Index 7.5 0.0 - 9.0 ratio [facility] ([facility]) IgG Index 0.50 0.28 - 0.66 ratio [facility] ([facility]) IgG/Albumin Ratio CSF 0.14 0.09 - 0.25 ratio [facility] ([facility]) Oligoclonal Bands CSF Positive( A) Negative [facility] ([facility]) IgG Synthesis Rate CSF <0.0 <=8.0 mg/d [facility] ([facility]) Interpretation See Note [facility] ([facility]) Comment: Isoelectric focusing/immunofixation reveals two or more unique bands in the CSF with no corresponding bands in the serum. ??There are also identical bands present in both the CSF and the serum. ?? This is consistent with intrathecal synthesis of immunoglobulin and is considered to be a positive result for oligoclonal bands. ?? Oligoclonal bands are present in approximately 95 percent of patients with multiple sclerosis but may also be present in the CSF from patients with viral or bacterial meningoencephalitis, subacute sclerosing panencephalitis, neurosyphilis, Guillain-Nisland syndrome, or meningeal carcinomatosis. Other (qualifier value) CEREBROSPINAL FLUID SPECIMEN / Unknown 06/28/2015 3:31 PM CDT 06/28/2015 3:46 PM CDT Kennedy Brooks MD LAB - BODY FLUID ORD ERABLES [facility] ([facility]) * CULTURE CSF+GRAM STAIN (06/28/2015 3:31 PM CDT) Culture CSF No Growth at 1 week [facility] Gram Stain No Organism Seen [facility] Spinal fluid (substance) CEREBROSPINAL FLUID SPECIMEN / Unknown 06/28/2015 3:31 PM CDT 06/28/2015 3:43 PM CDT Narrative [facility] - 07/05/2015 11:02 AM CDT Specimen Type->Cerebrospinal Fluid Gram Stains are routinely screened for the presence of Polymorphonuclear Cells. Kennedy Brooks MD LAB - MICROBIOLOGY O RDERABLES [address] [phone] * ANGIOTENSIN CONVERTING ENZYME CSF (06/28/2015 3:31 PM CDT) Angiotensin-Converti ng Enzyme CSF 1.6 0.0 - 2.5 U/L [facility] ([facility]) Comment: This test was developed and its performance characteristics determined by [facility]. The U.S. Food and Drug Administration has not approved or cleared this test; however, FDA clearance or approval is not currently required for clinical use. The results are not intended to be used as the sole means for clinical diagnosis or patient management decisions. Spinal fluid (substance) CEREBROSPINAL FLUID SPECIMEN / Unknown 06/28/2015 3:31 PM CDT 06/28/2015 3:48 PM CDT Kennedy Brooks MD LAB - BODY FLUID ORD ERABLES [facility] ([facility]) * CELL COUNT W DIFF CSF (06/28/2015 3:31 PM CDT) Spinal fluid (substance) CEREBROSPINAL FLUID SPECIMEN / Unknown 06/28/2015 3:31 PM CDT Narrative [facility] - 06/28/2015 4:36 PM CDT The following orders were created for panel order Spinal fluid cell count. Procedure ? Abnormality ? Status ? --------- ? ------ ? SPINAL FLUID CELL COUNT[[id number]] ? Abnormal ?Final result ? MANUAL DIFFERENTIAL FLUID[[id number]] ? Abnormal ?Final result ? Please view results for these tests on the individual orders. Kennedy Brooks MD LAB - BODY FLUID ORD ERABLES Performing Organization Address City/State/[facility] Co de Phone Number [facility] [address] * (ABNORMAL) URINALYSIS REFLEX TO MICROSCOPIC NO CULTURE (06/28/2015 1:36 PM CDT) Color UA Yellow Straw, Yellow, Colorless, Light Yellow [facility] Clarity UA Clear Clear [facility] Specific Mulberry UA 1.011 1.001 - 1.030 [facility] pH UA 6.5 5.0 - 8.0 [facility] Protein UA Trace(A) <=20 mg/dL [facility] Glucose UA 300(A) Negative mg/dL [facility] Ketone UA Negative Negative mg/dL [facility] Bilirubin UA Negative Negative mg/dL [facility] Blood UA Small(A) Negative [facility] Nitrite UA Negative Negative [facility] Leukocyte Esterase Trace(A) Negative [facility] Urobilinogen UA <2.0 <2.0 mg/dL [facility] RBC UA 12(H) 0 - 8 /HPF [facility] WBC UA 4(H) 0 - 2 /HPF [facility] Bacteria UA Rare Rare, Occasional, None /HPF [facility] Squamous Epithelial Cells UA <1 0 - 1 /HPF [facility] Renal Epithelial UA <1 0 - 1 /HPF [facility] Mucus UA Rare(A) None /LPF [facility] Urine specimen (specimen) URINE SPECIMEN OBTAINED BY CLEAN CATCH PROCEDURE / Unknown 06/28/2015 1:36 PM CDT 06/28/2015 2:01 PM CDT Kennedy Brooks MD LAB - URINALYSIS ORD ERABLES [facility] [address] [place] [address] * (ABNORMAL) COMPREHENSIVE METABOLIC PANEL (06/28/2015 11:54 AM CDT) BUN 11 7 - 26 mg/dL [facility] Creatinine 1.0 0.6 - 1.2 mg/dL [facility] Sodium 139 136 - 145 mmol/L [facility] Potassium 4.0 3.5 - 4.5 mmol/L [facility] Chloride 110(H) 98 - 107 mmol/L [facility] CO2 20(L) 22 - 29 mmol/L [facility] Glucose 213(H) 70 - 115 mg/dL [facility] Calcium 9.1 8.4 - 10.2 mg/dL [facility] Protein Total 7.0 6.0 - 8.3 g/dL [facility] Albumin 3.8 3.4 - 5.0 g/dL [facility] Bilirubin Total 0.4 0.2 - 1.2 mg/dL [facility] Alkaline Phosphatase 62 40 - 150 Units/L [facility] ALT 17 0 - 55 Units/L [facility] AST 14 5 - 34 Units/L [facility] Anion Gap 13 8 - 18 [facility] BUN/Creatinine Ratio 11 7 - 23 [facility] Osmolality Calculated 279 270 - 300 mOsm/kg [facility] Albumin/Globulin Ratio 1.2 1.1 - 2.3 [facility] eGFR >60 >60 mL/min/1.7 3 m2 [facility] Blood specimen (specimen) BLOOD SPECIMEN / Unknown 06/28/2015 11:54 AM CDT 06/28/2015 12:00 PM CDT Kennedy Brooks MD LAB - CHEMISTRY EUGENIO Larios Organization Address City/State/ZIP Co de Phone Number [address] [phone] * MRI LUMBAR SPINE WWO CONTRAST (06/17/2015 11:40 AM FIRER WATERTENDER) Anatomical Region Laterality Modality Spine Other Impressions 06/17/2015 2:09 PM FIRER WATERTENDER IMPRESSION: 1. Scattered predominantly subcortical T2 FLAIR [...] examination/study. This report was electronically signed by DOMIINC FAJARDO M.D. ??on 06/17/2015 2:09 PM . Narrative 06/17/2015 2:09 PM FIRER WATERTENDER EXAMINATION: 1. Magnetic resonance imaging (MRI) of [...] can be seen on prior study from [facility] from 05/30/2010 (series 8 image 8). [...] can be seen on prior study from [facility] from 05/30/2010 (series 8 image 8). Although [...] THORACIC SPINE WWO CONT (06/17/2015 11:40 AM FIRER WATERTENDER) Anatomical Region Laterality Modality Spine Other Impressions 06/17/2015 2:09 PM FIRER WATERTENDER IMPRESSION: 1. Scattered predominantly subcortical T2 FLAIR [...] 2:09 PM . Narrative 06/17/2015 2:09 PM FIRER WATERTENDER EXAMINATION: 1. Magnetic resonance imaging (MRI) of [...] can be seen on prior study from [facility] from 05/30/2010 (series 8 image 8). [...] can be seen on prior study from [facility] from 05/30/2010 (series 8 image 8). Although [...] CERVICAL SPINE WWO CONT (06/17/2015 11:40 AM FIRER WATERTENDER) Anatomical Region Laterality Modality Spine Other Impressions 06/17/2015 2:09 PM FIRER WATERTENDER IMPRESSION: 1. Scattered predominantly subcortical T2 FLAIR [...] of contrast enhancement makes this less likely). IDr. DOMINIC M.D. have personally reviewed and interpreted this examination/study. This report was electronically signed by DOMINIC FAJARDO M.D. ??on 06/17/2015 2:09 PM . Narrative 06/17/2015 2:09 PM FIRER WATERTENDER EXAMINATION: 1. Magnetic resonance imaging (MRI) of [...] can be seen on prior study from [facility] from 05/30/2010 (series 8 image 8). [...] can be seen on prior study from [facility] from 05/30/2010 (series 8 image 8). Although [...] MRI BRAIN WWO CONTRAST (06/17/2015 10:54 AM FIRER WATERTENDER) Anatomical Region Laterality Modality Head Other Impressions 06/17/2015 2:09 PM FIRER WATERTENDER IMPRESSION: 1. Scattered predominantly subcortical T2 FLAIR [...] of contrast enhancement makes this less likely). IDr. DOMINIC M.D. have personally reviewed and interpreted this examination/study. This report was electronically signed by DOMINIC FAJADRO M.D. ??on 06/17/2015 2:09 PM . Narrative 06/17/2015 2:09 PM FIRER WATERTENDER EXAMINATION: 1. Magnetic resonance imaging (MRI) of [...] can be seen on prior study from [facility] from 05/30/2010 (series 8 image 8). [...] can be seen on prior study from [facility] from 05/30/2010 (series 8 image 8). Although [...] ORDERABLES * CREATININE BLOOD - POCT (IP) [facility] (06/17/2015) Creatinine POCT 0.95 0.3 - 1.3 mg/dL [facility] eGFR POCT 60 60 ml/min [facility] 06/17/2015 Omero Fagan MD LAB - POINT OF CARE ORDERABLES [facility] Care Teams Cardiovascular Disease Specialist Relationship Specialty Start Date End Date Natalie Lanier MD [address] [place] [address] PCP - General Internal Medicine 01/25/19
--- OUTSIDE RECORDS SUMMARY | 2024-04-20 04:58 | XMS_ITS | Referral Summary ---
Author Organization [facility] Address [address] [place] [address] Care Team Providers Care Drawer In Hand Name Role Phone Natalie Lanier MD Primary Care Provider [phone] Source Comments [facility],non-owned Affiliates and Associated Physician Practices is amultiple site organization consisting of ambulatory clinics and hospital sitesin [place], [place], [place] and [place]. This disclosure is being madepursuant to the Care Everywhere program and may not contain all information available regarding this patient. Last updated 18.[facility] Allergies No known active allergies Medications * [...] fluticasone propionate (FLONASE) 50 MCG/ACT nasal spray [place] 1 spray into the nose 01/05/2019 Active [...] 07/04/2015 3:52 PM CDT Plan of Treatment Not on file Procedures Procedure Name Priority Date/Time Associated Diagnosis Comments HIV-1 HIV-2 ANTIGEN/ANTIBODY Routine 06/28/2015 5:57 PM CDT from Last 3 Months or Most Recently Relevant to Health Maintenance Results * HIV-1 HIV-2 ANTIGEN/ANTIBODY (06/28/2015 5:57 PM CDT) HIV Antigen/Antibod y 1 & 2 Non-reacti ve Non-react pascual [facility] Comment: Neither HIV-1 p24 Antigen nor HIV-1/HIV-2 Antibodies are detected. ? Blood specimen (specimen) BLOOD SPECIMEN / Unknown 06/28/2015 5:57 PM CDT 06/28/2015 6:06 PM CDT Kennedy Brooks MD LAB - HEMATOLOGY ORD ERABLES [facility] [address] [place] [address], [facility] [phone] from Last 3 Months or Most Recently Relevant to Health Maintenance Care Teams Drawer In Hand Relationship Specialty Start Date End Date Natalie Lanier MD [address] [place] [address] PCP - General Internal Medicine 01/25/19
--- OUTSIDE RECORDS SUMMARY | 2024-04-20 04:58 | XMS_ITS | Encounter Summary ---
Author Name [facility] [facility] [place] Address [address] [place] [address] Care Team Providers Care Molding Line Assistant Name Role Phone SHAMA LILLY Primary [...] Patient's Relationship to Policy Nichols [facility] Oct 29, 2012 Dec 27, 2026 [facility] [id number] [phone] ALEC MORATAYA PATIENT [facility] Oct 29, 2012 Dec 27, 2026 [facility] [id number] [phone] ALEC MORATAYA PATIENT Selected Encounter This section includes the information on record at [place] for the Encounter. Date/Time Encounter Type Encounter Description Reason Pro vider Source Jan 30, 2024 09:14 AM Outpatient Encounter TELEPHONE TRIAGE IHE Encounter Template Text not used by [place] Plan of Treatment: Future Appointments (+ 6 [...] 20 appointments. The data comes from all [place] treatment facilities. Appointment Date/Time Appointment Type Appointme nt Facility Name Apr 23, 2024 01:40 PM AMBULATORY - MEDICINE [facility] Jun 23, 2024 10:30 AM [facility] Jul 19, 2024 12:20 PM AMBULATORY - MEDICINE [facility] Social History: Smoking Status (Most current) and Tobacco Use (All prior to encounter date) This section includes the most current, and the historical, smoking and tobacco- related health factors from the [place] facility where the Encounter took place. Current Smoking Status This section includes the most current smoking, or tobacco-related health factor, from the [place] facility where the Encounter took place. Date/Time Current Smoking Status Comment Arnulfo galeasy Jan 06, 2023 02:41 PM VA-TOBACCO NEVER USED [facility] Tobacco Use History This section includes a history of the smoking, or tobacco-related health factors, that were collected on or before the date of the Encounter. The data comes from the [place] facility where the Encounter took place. Date/Time Smoking Status/Tobacco Use Comment F acility Jul 06, 2019 01:16 AM ORYX ADMIT TOBACCO SCREEN NO [facility] Feb 16, 2019 10:39 PM ORYX ADMIT TOBACCO SCREEN NO [facility] Nov 20, 2015 11:29 AM CURRENT TOBACCO USER [facility] Nov 20, 2015 11:29 AM TOBACCO MEDS OFFER ED BUT DECLINED [facility] Dec 26, 2014 09:53 AM CURRENT TOBACCO USER [facility] Dec 26, 2014 09:53 AM TOBACCO MEDS OFFER ED BUT DECLINED [facility] Advance Directives: All historical and current Section Date Range: From patient's date of to the date document was created. This section includes ALL of a patient's completed or amended [place] Advance and Rescinded Directives. The entries below indicate that a directive exists for the patient, but an actual copy is not included with this document. The data comes from all [place] facilities. Date Advance Directives Provider Source Jul 06, 2019 ADVANCE DIRECTIVE DISCUSSION JJ REZA [facility] Encounter Notes: All associated encounter notes This section contains the clinical notes associated to the Encounter. Date/Time Encounter Note(s) Provider Source Jan 30, 2024 09:14 AM PHARMACY NOTE: LOCAL TITLE: PHARMACY CONTACT CENTER NOTE STANDARD TITLE: PHARMACY NOTE DATE OF NOTE: JAN 30, 2024@09:14 ENTRY DATE: JAN 30, 2024@09:14:19 AUTHOR: BENJAMIN MENEZES EXP COSIGNER: URGENCY: STATUS: COMPLETED PHARMACY CONTACT CENTER NOTE Has ADDENDA MEDICATION RENEW [id number] SUBSTANCE: Who is contacting the [place]? Kitty - Contact via: Phone Requesting renewal of medication: ATORVASTATIN CALCIUM 80MG TAB [id number] 01/14/2024 01/13/2023 06/23/2023 2 CODEYMICHELLE 2.691 TAKE ONE-HALF TABLET BY MOUTH EVERY EVENING FOR CHOLESTEROL. REPORT Please send medication: Mail Disposition: Notification forwarded to provider for review of renewal request. /darwin/ BENJAMIN MENEZES CPHT VISN [address] [facility] DOCUMENT PROCESSING SPECIALIST Signed: 01/30/2024 09:15 Receipt Acknowledged By: 01/30/2024 09:22 /darwin/ JASMYN HOLLIS Staff Physician for SHAMA LILLY 01/30/2024 ADDENDUM STATUS: COMPLETED Medication renewed /darwin/ JASMYN HOLLIS Staff Physician Signed: 01/30/2024 09:23 BENJAMIN MENEZES [facility]
--- OUTSIDE RECORDS SUMMARY | 2024-04-20 05:07 | XMS_ITS | Continuity of Care Document ---
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 It does not include entries that were removed or entered in error. Problem Status Onset Date Problem Type Date of Resolution Comments Source Asthma Active Condition Jan 16 Entered By: TABITHA ROD Comment: 01/13/20 pulmonary function testing: mild restrictive abnormality [facility] Benign essential hypertension Active Condition [facility] CHF - Congestive Heart Failure ([facility] [id number]) Active Condition [facility] Chronic kidney disease stage 3A Active Condition Dec 23 Entered By: TABITHA ROD Comment: 12/24/19 bilateral renal ultrasound [facility] Chronic obstructive lung disease Active Condition [facility] Gastroesophageal reflux disease Active Condition [facility] Gout Active Condition [facility] Headache Active Condition [facility] Hyperlipidemia Active Condition [facility] Obesity ([facility] [id number]) Active Condition [facility] Obstructive Sleep Apnea Syndrome ([facility] [id number]) Active Condition Feb 01, 2020 Entered By: TABITHA ROD Comment: 11/08/19 split night sleep study: severe obstuctive sleep apnea, cpap 13 cm h2o with heated humidifier and mask [facility] Polyp of colon Active Condition [facility] Type [address] Condition [facility] Vitamin D Deficiency ([facility] [id number]) Active Condition [facility] Asthma Inactive Condition 12/23/2023 [facility] Chronic prostatitis Inactive Condition 07/09/2023 [facility] Cough ([facility] [id number]) Inactive Condition 07/09/2023 [facility] Hemangioma of spleen Inactive Condition 07/09/2023 [facility] Kidney Stone (SCT [id number]) Inactive Condition 07/09/2023 May 20, 2019 Entered By: TABITHA ROD Comment: 04/27/19 calcium oxalate stone analysis [facility] OA - Osteoarthritis ([facility] [id number]) Inactive Condition 07/09/2023 Sep 28, 2020 Entered By: TABITHA ROD Comment: 09/28/20 lumbar spinal radiograph: lumbar spinal osteoarthritis with no acute fracture [facility] Past history of procedure Inactive Condition 07/09/2023 [...] cystoscopy, right ureteroscopy, laser lithotripsy, stent exchange [facility] Prostatic abscess Inactive Condition 07/09/2023 [facility] Tobacco dependence, continuous Inactive Condition 11/12/2019 [facility] Diagnosis: ICD-10-CM Z76.0 Encounter for issue of repeat prescription Active Diagnosis [facility] Diagnosis: ICD-10-CM Z12.2 Encntr screen for malignant neoplasm of respiratory organs Active Diagnosis [facility] Diagnosis: ICD-10-CM J44.9 Chronic obstructive pulmonary disease, unspecified Active Diagnosis [facility] Diagnosis: ICD-10-CM I50.9 Heart failure, unspecified Active Diagnosis [facility] Diagnosis: ICD-10-CM N18.31 Chronic kidney disease, stage 3a Active Diagnosis [facility] Diagnosis: ICD-10-CM J45.998 Other asthma Active Diagnosis [facility] Diagnosis: ICD-10-CM J45.909 Unspecified asthma, uncomplicated Active Diagnosis [facility] Diagnosis: ICD-10-CM J45.41 Moderate persistent asthma with (acute) exacerbation Active Diagnosis [facility] Diagnosis: ICD-10-CM E78.5 Hyperlipidemia, unspecified Active Diagnosis [facility] Diagnosis: ICD-10-CM Z63.6 Dependent relative needing care at home Active Diagnosis [facility] Diagnosis: ICD-10-CM R05.1 Acute cough Active Diagnosis [facility] Diagnosis: ICD-10-CM I10 Essential (primary) hypertension Active Diagnosis [facility] Diagnosis: ICD-10-CM N18.9 Chronic kidney disease, unspecified Active Diagnosis [facility] Diagnosis: ICD-10-CM E11.9 Type 2 diabetes mellitus without complications Active Diagnosis [facility] Diagnosis: ICD-10-CM N18.32 Chronic kidney disease, stage 3b Active Diagnosis [facility] Diagnosis: ICD-10-CM Z00.00 Encntr for general adult medical exam w/o abnormal findings Active Diagnosis [facility] Medications Combined list of outpatient medications from Department of Defense and [facility] facilities.Medications provided include 1) outpatient medications from the last 15 months, and 2) patient-reported medications. Medication Details Route Status Patient Instructions Prescription Expires Prescription Number Last Dispense Date Ordering Provider Order Date Order Qty Source ALBUTEROL SO4 0.083% INHL,3ML INHALE 1 VIAL (2.5MG/3 ML) BY NEBULIZA TION EVERY 6 HOURS DIRECTED NEEDED FOR EXERCISE -INDUCED BRONCHOS PASM NEBULI ZATION ACTIVE 10/01/2024 [id number] 4 BIANCA RIVERA 2023 120 [facility] ALBUTEROL SO4 0.083% INHL,3ML INHALE 1 VIAL (2.5MG/3 ML) BY NEBULIZA TION EVERY 6 HOURS DIRECTED NEEDED FOR EXERCISE -INDUCED BRONCHOS PASM NEBULI ZATION DISCONT INUED 09/29/2024 [id number] 4 [facility] 2023 120 [facility] ALBUTEROL SO4 0.083% INHL,3ML INHALE 1 VIAL (2.5MG/3 ML) BY NEBULIZA TION EVERY 6 HOURS DIRECTED NEEDED FOR EXERCISE -INDUCED BRONCHOS PASM NEBULI ZATION 07/31/2023 [id number] 4 [facility] 2022 120 [facility] ALBUTEROL SO4 90MCG/ACTUA T (CFC-F) INHL,ORAL,8 .5GM INHALE 2 PUFFS ORAL INHALATI ON FOUR TIMES A DAY NEEDED FOR EXERCISE -INDUCED BRONCHOS PASM SHAKE WELL. RINSE MOUTHPIE CE FREQUENT LY TO PREVENT CLOGGING . RESPIR ATORY (INHAL ATION) ACTIVE 09/29/2024 [id number] 4 [facility] 2023 1 [facility] ALBUTEROL SO4 90MCG/ACTUA T (CFC-F) INHL,ORAL,8 .5GM INHALE 2 PUFFS BY ORAL INHALATI ON FOUR TIMES A DAY NEEDED SHAKE WELL. RINSE MOUTHPIE CE FREQUENT LY TO PREVENT CLOGGING . RESPIR ATORY (INHAL ATION) 08/28/2023 [id number] 4 [facility] 2022 1 [facility] ALLOPURINOL 300MG TAB TAKE ONE TABLET BY MOUTH ONCE A DAY TAKE WITH PLENTY OF WATER. ORAL ACTIVE 07/09/2024 [id number] 4 CHARITO LILLY LBVijay R 2023 90 [facility] ALLOPURINOL 300MG TAB TAKE ONE TABLET BY MOUTH ONCE A DAY FOR GOUT TAKE WITH PLENTY OF WATER. ORAL 06/19/2023 [id number] 3 ME CODEY TTISA 2022 90 [facility] ASPIRIN 81MG TAB,CHEWABL E CHEW AND SWALLOW ONE TABLET BY MOUTH ONCE A DAY ORAL ACTIVE Mary Carmen CAMPOS 2022 [facility] ATORVASTATI N CA 80MG TAB TAKE ONE-HALF TABLET BY MOUTH EVERY EVENING FOR CHOLESTE ROL. REPORT ANY UNEXPLAI RENETTA MUSCLE PAIN/WEA KNESS TO PROVIDER . ORAL ACTIVE 01/30/2025 [id number] 4 Azeem HOLLIS 2023 45 [facility] ATORVASTATI N CA 80MG TAB TAKE ONE-HALF TABLET BY MOUTH EVERY EVENING FOR CHOLESTE ROL. REPORT ANY UNEXPLAI RENETTA MUSCLE PAIN/WEA KNESS TO PROVIDER . ORAL DISCONT INUED 01/14/2024 [id number] 4 KRUPA HILLMAN 2022 45 [facility] CARVEDILOL 12.5MG TAB TAKE ONE-HALF TABLET BY MOUTH TWICE A DAY TAKE WITH FOOD. ORAL 04/01/2024 [id number] 4 Bowen WALL 2022 90 [facility] CICLESONIDE 160MCG/SPRA Y INHL,ORAL,6 .1GM INHALE 1 PUFF ORAL INHALATI ON TWICE A DAY RESPIR ATORY (INHAL ATION) ACTIVE 03/10/2025 [id number] 4 BIANCA RIVERA 2023 1 [facility] CICLESONIDE 160MCG/SPRA Y INHL,ORAL,6 .1GM INHALE 1 PUFF ORAL INHALATI ON TWICE A DAY FOR ASTHMA RESPIR ATORY (INHAL ATION) DISCONT INUED (EDIT) 06/25/2024 [id number] 4 BIANCA RIVERA 2023 1 [facility] EMPAGLIFLOZ IN 25MG TAB TAKE ONE-HALF TABLET BY MOUTH ONCE A DAY ORAL 04/01/2024 [id number] 4 Bowen WALL 2022 30 [facility] FORMOTEROL FUM DIHYD 5MCG/MOMETA SONE FUR 200MCG INHL,ORAL,1 3GM INHALE 2 INHALATI ONS BY ORAL INHALATI ON TWICE A DAY DIRECTED FOR BREATHIN G. RINSE MOUTH AND SPIT AFTER USE. DO NOT EXCEED 4 INHALATI ONS PER 24 HOURS. RESPIR ATORY (INHAL ATION) DISCONT INUED BY PROVIDE R 03/11/2024 [id number] 3 BIANCA RIVERA 2022 1 [facility] HYDRALAZINE HCL 100MG TAB TAKE ONE TABLET BY MOUTH THREE TIMES A DAY FOR BLOOD PRESSURE ORAL 02/11/2024 [id number] 4 Bowen WALLALEC S 2022 270 [facility] INSULIN,ASP ART,HUMAN (EQV-NOVOLO G) 100 UNIT/ML,FLE XPEN,3ML INJECT 18 UNITS UNDER THE SKIN BEFORE BREAKFAS T AND INJECT 18 UNITS BEFORE LUNCH AND INJECT 18 UNITS BEFORE SUPPER FOR BLOOD SUGAR CONTROL. ADMINIST ER 10 MINUTES BEFORE FOOD DIRECTED . REFRIGER ATE UN-OPENE D PENS. DISCARD CARTRIDG E 28 DAYS AFTER OPENING. SUBCUT ANEOUS ACTIVE 12/23/2024 [id number] 4 CHARITO LILLY R 2023 15 [facility] INSULIN,ASP ART,HUMAN (EQV-NOVOLO G) 100 UNIT/ML,FLE XPEN,3ML INJECT 16 UNITS UNDER THE SKIN BEFORE BREAKFAS T AND INJECT 16 UNITS BEFORE LUNCH AND INJECT 16 UNITS BEFORE SUPPER FOR BLOOD SUGAR CONTROL. ADMINIST ER 10 MINUTES BEFORE FOOD DIRECTED . REFRIGER ATE UN-OPENE D PENS. DISCARD CARTRIDG E 28 DAYS AFTER OPENING. SUBCUT ANEOUS DISCONT INUED (EDIT) 07/03/2024 [id number] 4 CHARITO LILLY R 2023 15 [facility] INSULIN,ASP ART,HUMAN (EQV-NOVOLO G) 100 UNIT/ML,FLE XPEN,3ML INJECT 16 UNITS UNDER THE SKIN BEFORE BREAKFAS T AND INJECT 16 UNITS BEFORE LUNCH AND INJECT 16 UNITS BEFORE SUPPER FOR BLOOD SUGAR CONTROL. ADMINIST ER 10 MINUTES BEFORE FOOD DIRECTED . REFRIGER ATE UN-OPENE D PENS. DISCARD CARTRIDG E 28 DAYS AFTER OPENING. SUBCUT ANEOUS DISCONT INUED 01/14/2024 [id number] 3 CODEY TTISA 2022 15 [facility] INSULIN,GLA RGINE,HUMAN 100 UNIT/ML INJ,SOLOSTA R,3ML INJECT 50 UNITS UNDER THE SKIN ONCE A DAY FOR BLOOD SUGAR CONTROL. ADMINIST ER AT SAME TIME EACH DAY DIRECTED . DISCARD ANY OPEN CARTRIDG E AFTER 28 DAYS. SUBCUT ANEOUS 04/11/2024 [id number] 4 CHARITO LILLY LBVijay R 2023 5 [facility] INSULIN,GLA RGINE-YFGN 100UNIT/ML INJ PEN,3ML INJECT 50 UNITS UNDER THE SKIN ONCE A DAY FOR BLOOD SUGAR CONTROL. ADMINIST ER AT SAME TIME EACH DAY DIRECTED . DISCARD ANY OPEN CARTRIDG E AFTER 28 DAYS. SUBCUT ANEOUS ACTIVE 06/19/2024 [id number] 4 ME CODEY TTISA 2023 15 [facility] INSULIN,GLA RGINE-YFGN 100UNIT/ML INJ PEN,3ML INJECT 50 UNITS UNDER THE SKIN ONCE A DAY FOR BLOOD SUGAR CONTROL. ADMINIST ER AT SAME TIME EACH DAY DIRECTED . DISCARD ANY OPEN CARTRIDG E AFTER 28 DAYS. SUBCUT ANEOUS DISCONT INUED 12/12/2023 [id number] 3 CODEY TTISA 2022 15 [facility] MONTELUKAST NA 10MG TAB TAKE ONE TABLET BY MOUTH EVERY EVENING FOR ASTHMA ORAL ACTIVE 09/29/2024 [id number] 4 BIANCA RIVERA 2023 90 [facility] OLODATEROL 2.5MCG/TIOT ROPIUM 2.5MCG/ACTU AT INHL,ORAL,6 0D,4GM INHALE 2 PUFFS ORAL INHALATI ON ONCE A DAY FOR ASTHMA ADMINIST ER AT SAME TIME EACH DAY RESPIR ATORY (INHAL ATION) ACTIVE 06/25/2024 [id number] 4 BIANCA RIVERA 2023 1 [facility] OMEPRAZOLE 10MG CAP,EC TAKE ONE CAPSULE BY MOUTH ONCE A DAY FOR GASTROES OPHAGEAL REFLUX DISEASE TAKE 30 MINUTES PRIOR TO FOOD. ORAL DISCONT INUED 04/27/2023 [id number] 3 ELENO SCHMID 2022 90 [facility] OMEPRAZOLE 10MG CAP,EC TAKE ONE CAPSULE BY MOUTH ONCE A DAY FOR GASTROES OPHAGEAL REFLUX DISEASE TAKE 30 MINUTES PRIOR TO FOOD. ORAL 08/07/2023 [id number] 4 ELENO SCMHID 2023 90 [facility] OMEPRAZOLE 20MG CAP,EC TAKE ONE CAPSULE BY MOUTH ONCE A DAY TAKE 30 MINUTES PRIOR TO FOOD. ORAL ACTIVE 12/23/2024 [id number] 4 CHARITO LILLY R 2023 90 [facility] POTASSIUM CHLORIDE 20MEQ TAB,SA (DISPERSIBL E) TAKE ONE TABLET BY MOUTH ONCE A DAY FOR HYPOKALE MATEO TAKE WITH FOOD ORAL 05/02/2023 [id number] 3 Bowen WALL 2022 10 [facility] PREDNISONE 10MG TAB TAKE FOUR TABLETS BY MOUTH EVERY MORNING FOR 3 DAYS, THEN TAKE THREE TABLETS EVERY MORNING FOR 3 DAYS, THEN TAKE TWO TABLETS EVERY MORNING FOR 3 DAYS, THEN TAKE ONE TABLET EVERY MORNING FOR 3 DAYS, THEN TAKE ONE-HALF TABLET EVERY MORNING FOR 3 DAYS FOR ASTHMA EXACERBA TION TAKE WITH FOOD OR MILK. ORAL 07/25/2023 [id number] 4 BIANCA RIVERA 2023 32 [facility] PREDNISONE 10MG TAB TAKE THREE TABLETS BY MOUTH EVERY MORNING FOR 3 DAYS, THEN TAKE TWO TABLETS EVERY MORNING FOR 3 DAYS, THEN TAKE ONE TABLET EVERY MORNING FOR 3 DAYS, THEN TAKE ONE-HALF TABLET EVERY MORNING FOR 3 DAYS TAKE WITH FOOD OR MILK. ORAL 04/19/2023 [id number] 3 BIANCA RIVERA 2022 20 [facility] SPIRONOLACT ONE 25MG TAB TAKE ONE TABLET BY MOUTH ONCE A DAY ORAL 02/11/2024 [id number] 4 Bowen WALL S 2022 90 [facility] TIOTROPIUM 2.5MCG/ACTU AT INHL,ORAL,6 0D,4GM INHALE 2 INHALATI ONS BY ORAL INHALATI ON ONCE A DAY FOR COPD (ADMINIS TER AT SAME TIME EACH DAY) RESPIR ATORY (INHAL ATION) DISCONT INUED BY PROVIDE R 07/31/2023 [id number] 3 BIANCA RIVERA 2022 3 [facility] TOPIRAMATE 25MG TAB TAKE ONE TABLET BY MOUTH TWICE A DAY FOR MIGRAINE PROPHYLA XIS ORAL DISCONT INUED (EDIT) 01/30/2024 [id number] 3 VIJAYA,CHARITO LBY R 2022 180 [facility] TOPIRAMATE 50MG TAB TAKE ONE TABLET BY MOUTH TWICE A DAY FOR MIGRAINE PROPHYLA XIS ORAL 02/04/2024 [id number] 3 LILLY,SHE LBY R 2022 180 [facility] TORSEMIDE 20MG TAB TAKE TWO TABLETS BY MOUTH TWICE A DAY FOR FLUID RETENTIO N (EDEMA) ORAL ACTIVE 10/28/2024 [id number] 4 ZACK MURPHY 2023 360 [facility] TORSEMIDE 20MG TAB TAKE TWO TABLETS BY MOUTH TWICE A DAY FOR FLUID RETENTIO N (EDEMA) (TAKE IN MORNING AND AFTERNOO N) ORAL 10/09/2023 [id number] 4 KRUPA HILLMAN 2022 360 [facility] VALSARTAN 160MG TAB TAKE ONE TABLET BY MOUTH TWICE A DAY TO LOWER BLOOD PRESSURE ORAL ACTIVE 07/09/2024 [id number] 4 CHARITO LILLY R 2023 180 [facility] Allergies, Adverse Reactions, Alerts Combined list of allergies from Department of Defense and Veterans Affairs facilities. It does not include entries that were removed or entered in error. Substance Category Reaction Severity Reaction type Status Date Reported Comments Source METFORMIN Propensity to adverse reactions to drug (finding) Diarrhea MILD active 10/19/2015 [facility] Immunizations Combined list of available immunizations from the Department of [facility] and Veterans Affairs facilities. Immunization Series Date Given Administered By Site Reaction Lot Number CVX Code Drug Radon Inspector Status Comments Source INFLUENZA, SPLIT VIRUS, TRIVALENT, PF 2023 RICARDO GODWIN RIGHT DELTO ID [id number] 140 complet ed [facility] INFLUENZA, INJECTABLE, QUADRIVALENT, PRESERVATIVE FREE 2022 RICARDO GODWIN RIGHT DELTO ID [id number] 150 complet ed [facility] COVID-19 (MODERNA), MRNA, LNP-S, BIVALENT BOOSTER, PF, 50 MCG/0.5 ML OR 25MCG/0.25 ML DOSE 1 2022 YISEL RYAN LEFT DELTO ID [id number] 229 complet ed [facility] INFLUENZA, UNSPECIFIED FORMULATION 2021 88 complet ed [facility] COVID-19 (MODERNA), MRNA, LNP-S, PF, 100 MCG/0.5ML DOSE OR 50 MCG/0.25ML DOSE 4 2021 NONE 207 complet ed MOD; [id number]; 2 [facility] PNEUMOCOCCAL POLYSACCHARID E PPV23 2021 NONE 33 complet ed [facility] ZOSTER RECOMBINANT 2 2021 NONE 187 complet ed [facility] COVID-19 (MODERNA), MRNA, LNP-S, PF, 100 MCG OR 50 MCG DOSE 3 2021 NONE 207 complet ed MOD; [id number]; 2 [facility] PNEUMOCOCCAL CONJUGATE PCV 13 2020 NONE 133 complet ed [facility] ZOSTER RECOMBINANT 1 2020 NONE 187 complet ed [facility] COVID-19 (MODERNA), MRNA, LNP-S, PF, 100 MCG/0.5 ML DOSE 2 2020 207 complet ed MOD; [id number]; 1 [facility] COVID-19 (MODERNA), MRNA, LNP-S, PF, 100 MCG/0.5 ML DOSE 1 2020 207 complet ed MOD; [id number]; 1 [facility] INFLUENZA, INJECTABLE, QUADRIVALENT, PRESERVATIVE FREE 2019 150 complet ed [facility] INFLUENZA, INJECTABLE, QUADRIVALENT, PRESERVATIVE FREE 2018 150 complet ed [facility] INFLUENZA, UNSPECIFIED FORMULATION 2017 88 complet ed Per pt had flu vaccinati on at [facility] on 03/2018, no paperwork at this visit to verify [facility] TDAP 2017 115 complet ed Right Deltoid [facility] Results Combined list of recent chemistry, hematology and other laboratory results from Department of Defense and Veterans Affairs, ranging from 15 months to all on record, depending upon the facility. Order Name Results Value Reference Range Date Interpretation Specimen Comments Source HGA1C HEMOGLOBIN A1C/HEMOGLO BIN.TOTAL IN BLOOD 7.9 4.0 - 6.0 12/22 H Specimen Type: BLOOD No comment entered. Ordering Provider: SRINIVAS LILLY Report Released Date/Time: Dec 23, 2023 12:37 PM Reporting Lab: [facility] [address] [facility] [phone] Performing Lab: [facility] [address] [place] [phone] [facility] LIPID PANEL (STL) CHOLESTEROL [MASS/VOLUM E] IN SERUM OR PLASMA 106 mg/dL 0 - 200 12/22 Specimen Type: PLASMA No comment entered. Ordering Provider: SRINIVAS LILLY Report Released Date/Time: Dec 23, 2023 12:37 PM Reporting Lab: [place] [phone] Performing Lab: [address] [phone] [facility] LIPID PANEL (STL) TRIGLYCERID E [MASS/VOLUM E] IN SERUM OR PLASMA 197 mg/dL 0 - 150 12/22 H Specimen Type: PLASMA No comment entered. Ordering Provider: SRINIVAS LLILY Report Released Date/Time: Dec 23, 2023 12:37 PM Reporting Lab: [place] [address] Performing Lab: [address] [phone] LIPID PANEL (STL) CHOLESTEROL IN LDL [MASS/VOLUM E] IN SERUM OR PLASMA BY CALCULATION 41 mg/dL 12/22 Specimen Type: PLASMA No comment entered. Ordering Provider: SRINIVAS LILLY Report Released Date/Time: Dec 23, 2023 12:37 PM Reporting Lab: [address] [phone] Performing Lab: [address] [phone] [place] [address] LIPID PANEL (STL) CHOLESTEROL IN HDL [MASS/VOLUM E] IN SERUM OR PLASMA 26 mg/dL 40 12/22 L Specimen Type: PLASMA No comment entered. Ordering Provider: SRINIVAS LILLY Report Released Date/Time: Dec 23, 2023 12:37 PM Reporting Lab: [place] [address] Performing Lab: [address] [phone] [facility] PROST. SPECIFIC AG.(PB-ST L) PROSTATE SPECIFIC AG [...] Dec 23, 2023 12:37 PM Reporting Lab: [place] [address] Performing Lab: [address] TSH (MA-PB) THYROTROPIN [UNITS/VOLU ME] IN SERUM [...] Dec 23, 2023 12:37 PM Reporting Lab: [place] [address] Performing Lab: [address] URIC ACID URATE [MASS/VOLUM E] IN SERUM OR PLASMA 7.7 mg/dL 3.5 - 7.2 12/22 H Specimen Type: PLASMA No comment entered. Ordering Provider: SRINIVAS LILLY Report Released Date/Time: Dec 23, 2023 12:37 PM Reporting Lab: [place] [address] Performing Lab: [address] URINALYSI S (STL-PB) COLOR OF URINE Light- [...] Dec 23, 2023 12:37 PM Reporting Lab: [facility] [address] [place] [address] Performing Lab: [address] URINALYSI S (STL-PB) BILIRUBIN.T OTAL [PRESENCE] [...] Dec 23, 2023 12:37 PM Reporting Lab: [place] [address] Performing Lab: [address] URINALYSI S (STL-PB) PH OF URINE [...] Dec 23, 2023 12:37 PM Reporting Lab: [place] [address] Performing Lab: [address] [place] [phone] [place] [address] URINALYSI S (STL-PB) LEUKOCYTES [#/AREA] IN URINE [...] Dec 23, 2023 12:37 PM Reporting Lab: [address] [phone] Performing Lab: [address] URINALYSI S (STL-PB) ERYTHROCYTE S [#/VOLUME] [...] Dec 23, 2023 12:37 PM Reporting Lab: [address] [phone] Performing Lab: [address] URINALYSI S (STL-PB) APPEARANCE OF URINE [...] Dec 23, 2023 12:37 PM Reporting Lab: [facility] [address] [facility] [phone] Performing Lab: [facility] [address] [place] [phone] [facility] URINALYSI S (STL-PB) NITRITE [PRESENCE] IN URINE [...] Dec 23, 2023 12:37 PM Reporting Lab: [address] [phone] Performing Lab: [address] [phone] [place] [address] URINALYSI S (STL-PB) BACTERIA [PRESENCE] IN URINE [...] Dec 23, 2023 12:37 PM Reporting Lab: [facility] [address] [place] [phone] Performing Lab: [place] [address] [place] [phone] [place] [address] URINALYSI S (STL-PB) EPITHELIAL CELLS [#/AREA] IN [...] Dec 23, 2023 12:37 PM Reporting Lab: [place] [address] Performing Lab: [address] URINALYSI S (L-PB) GLUCOSE [MASS/VOLUM E] [...] Dec 23, 2023 12:37 PM Reporting Lab: [facility] [address] [place] [phone] Performing Lab: [address] [phone] [place] [address] URINALYSI S (L-PB) PROTEIN [MASS/VOLUM E] IN [...] Dec 23, 2023 12:37 PM Reporting Lab: [place] [address] Performing Lab: [address] URINALYSI S (L-PB) URN.UROBILI NOGEN Normal [...] Dec 23, 2023 12:37 PM Reporting Lab: [place] [address] Performing Lab: [address] URINALYSI S (L-PB) HEMOGLOBIN [MASS/VOLUM E] [...] Dec 23, 2023 12:37 PM Reporting Lab: [place] [address] Performing Lab: [facility] [place] [address] URINALYSI S (STL-PB) KETONES [MASS/VOLUM E] [...] Dec 23, 2023 12:37 PM Reporting Lab: [place] [address] Performing Lab: [address] URINALYSI S (L-PB) URN.LEUK.ES T. Negati [...] Dec 23, 2023 12:37 PM Reporting Lab: [place] [address] Performing Lab: [address] URINALYSI S (L-PB) SPECIFIC GRAVITY OF [...] Dec 23, 2023 12:37 PM Reporting Lab: [place] [address] [facility] [address] Performing Lab: [id number] [place] [address] MICRAL/CR EAT PROFILE (STL) ALBUMIN [MASS/VOLUM E] IN URINE 341.2 mg/L 10/27 Specimen Type: URINE No comment entered. Ordering Provider: LOYDA MURPHY Report Released Date/Time: Oct 28, 2023 09:22 AM Reporting Lab: [place] [address] [facility] [phone] Performing Lab: [address] [address] [facility] MICRAL/CR EAT PROFILE (STL) ALBUMIN/CRE ATININE [MASS RATIO] IN URINE 664 mg/g 0 - 29 10/27 H Specimen Type: URINE No comment entered. Ordering Provider: LOYDA MURPHY Report Released Date/Time: Oct 28, 2023 09:22 AM Reporting Lab: [address] [phone] Performing Lab: [address] [address] [facility] MICRAL/CR EAT PROFILE (STL) CREATININE [MASS/VOLUM E] IN URINE 51.4 mg/dL 63 - 166 10/27 L Specimen Type: URINE No comment entered. Ordering Provider: LOYDA MURPHY Report Released Date/Time: Oct 28, 2023 09:22 AM Reporting Lab: [address] [address] Performing Lab: [address] [address] [facility] PTH, INTACT (STL) PARATHYRIN. INTACT [MASS/VOLUM E] IN SERUM OR PLASMA 57.70 pg/mL 8.7 - 77.7 10/27 Specimen Type: SERUM No comment entered. Ordering Provider: LOYDA MURPHY Report Released Date/Time: Oct 28, 2023 09:22 AM Reporting Lab: [place] [phone] Performing Lab: [phone] [place] [address] RENAL PANEL CREATININE [MASS/VOLUM E] IN SERUM OR PLASMA 1.69 mg/dL 0.7 - 1.3 10/27 H Specimen Type: PLASMA Comment: No hemolysis noted. Ordering Provider: LOYDA MURPHY Report Released Date/Time: Oct 28, 2023 09:22 AM Reporting Lab: [place] [address] Performing Lab: [phone] [place] [address] RENAL PANEL UREA NITROGEN [MASS/VOLUM E] IN SERUM OR PLASMA 18.6 mg/dL 9.0 - 25.0 10/27 Specimen Type: PLASMA Comment: No hemolysis noted. Ordering Provider: LOYDA MURPHY Report Released Date/Time: Oct 28, 2023 09:22 AM Reporting Lab: [place] [address] [facility] [address] Performing Lab: [phone] [place] [address] RENAL PANEL GLUCOSE [MASS/VOLUM E] IN SERUM OR PLASMA 160 mg/dL 72 - 99 10/27 H Specimen Type: PLASMA Comment: No hemolysis noted. Ordering Provider: LOYDA MURPHY Report Released Date/Time: Oct 28, 2023 09:22 AM Reporting Lab: [place] [address] Performing Lab: [facility] [address] [facility] [address] [facility] RENAL PANEL SODIUM [MOLES/VOLU ME] IN SERUM OR PLASMA 141 meq/L 136 - 145 10/27 Specimen Type: PLASMA Comment: No hemolysis noted. Ordering Provider: LOYDA MURPHY Report Released Date/Time: Oct 28, 2023 09:22 AM Reporting Lab: [facility] [address] [facility] [address] Performing Lab: [facility] [address] [facility] [address] [facility] RENAL PANEL POTASSIUM [MOLES/VOLU ME] IN SERUM OR PLASMA 4.0 meq/L 3.5 - 5 10/27 Specimen Type: PLASMA Comment: No hemolysis noted. Ordering Provider: LOYDA MURPHY Report Released Date/Time: Oct 28, 2023 09:22 AM Reporting Lab: [facility] [address] [facility] [address] Performing Lab: [facility] [address] [place] [phone] [facility] RENAL PANEL CHLORIDE [MOLES/VOLU ME] IN SERUM OR PLASMA 106 meq/L 98 - 107 10/27 Specimen Type: PLASMA Comment: No hemolysis noted. Ordering Provider: LOYDA MURPHY Report Released Date/Time: Oct 28, 2023 09:22 AM Reporting Lab: [facility] [address] [facility] [address] Performing Lab: [facility] [address] [facility] [address] [facility] RENAL PANEL CARBON DIOXIDE, TOTAL [MOLES/VOLU ME] IN SERUM OR PLASMA 25 meq/L 22 - 31 10/27 Specimen Type: PLASMA Comment: No hemolysis noted. Ordering Provider: LOYDA MURPHY Report Released Date/Time: Oct 28, 2023 09:22 AM Reporting Lab: [facility] [address] [place] [phone] Performing Lab: [facility] [address] [facility] [address] [facility] RENAL PANEL CALCIUM [MASS/VOLUM E] IN SERUM OR PLASMA 10.0 mg/dL 8.4 - 10.4 10/27 Specimen Type: PLASMA Comment: No hemolysis noted. Ordering Provider: LOYDA MURPHY Report Released Date/Time: Oct 28, 2023 09:22 AM Reporting Lab: [facility] [address] [facility] [address] Performing Lab: [address] [address] [facility] RENAL PANEL PHOSPHATE [MASS/VOLUM E] IN SERUM OR PLASMA 4.6 mg/dL 2.3 - 4.7 10/27 Specimen Type: PLASMA Comment: No hemolysis noted. Ordering Provider: LOYDA MURPHY Report Released Date/Time: Oct 28, 2023 09:22 AM Reporting Lab: [place] [id number] [facility] [address] Performing Lab: [address] [phone] [facility] RENAL PANEL ALBUMIN [MASS/VOLUM E] IN SERUM OR PLASMA 4.1 g/dL 3.4 - 5 10/27 Specimen Type: PLASMA Comment: No hemolysis noted. Ordering Provider: LOYDA MURPHY Report Released Date/Time: Oct 28, 2023 09:22 AM Reporting Lab: [place] [address] [facility] [address] Performing Lab: [address] [address] [facility] RENAL PANEL GLOMERULAR FILTRATION RATE/1.73 SQ M.PREDICTED [VOLUME RATE/AREA] IN SERUM, PLASMA OR BLOOD BY CREATININE- BASED FORMULA (CKD-EPI 2020) 45.6 60 10/27 Specimen Type: PLASMA Comment: No hemolysis noted. Ordering Provider: LOYDA MURPHY Report Released Date/Time: Oct 28, 2023 09:22 AM Reporting Lab: [facility] [address] [facility] [address] Performing Lab: [facility] [address] [facility] [address] [facility] VITAMIN D, 25-HYDROX Y 25-HYDROXYV ITAMIN D3 [MASS/VOLUM E] IN SERUM OR PLASMA 15.6 ng/mL 30 - 96 10/27 L Specimen Type: SERUM No comment entered. Ordering Provider: LOYDA MURPHY Report Released Date/Time: Oct 28, 2023 09:22 AM Reporting Lab: [place] [address] [facility] [address] Performing Lab: [place] [address] [facility] [address] [facility] Vital Signs Combined list of inpatient and outpatient Vital Signs from Department of Defense and Veterans Affairs, ranging from 12 months to all on record, depending upon the facility. Vital Sign Value Date Comments Source SYSTOLIC BLOOD PRESSURE 196 12/23/2023 12:07:24 [facility] DIASTOLIC BLOOD PRESSURE 92 12/23/2023 12:07:24 [facility] PULSE OXIMETRY 96 12/23/2023 12:07:24 [facility] WEIGHT 274.8 12/23/2023 12:07:24 [facility] BMI 42kg/m2 12/23/2023 12:07:24 [facility] PAIN 0 12/23/2023 12:07:24 [facility] TEMPERATURE 98.7 12/23/2023 12:07:24 [facility] PULSE 76 12/23/2023 12:07:24 [facility] RESPIRATION 20 12/23/2023 12:07:24 [facility] SYSTOLIC BLOOD PRESSURE 159 10/28/2023 09:12:01 [facility] DIASTOLIC BLOOD PRESSURE 74 10/28/2023 09:12:01 [facility] PULSE OXIMETRY 95 10/28/2023 09:12:01 [facility] WEIGHT 277.9 10/28/2023 09:12:01 [facility] BMI 42kg/m2 10/28/2023 09:12:01 [facility] PAIN 0 10/28/2023 09:12:01 [facility] HEIGHT 68 10/28/2023 09:12:01 [facility] TEMPERATURE 98.4 10/28/2023 09:12:01 [facility] PULSE 69 10/28/2023 09:12:01 [facility] RESPIRATION 20 10/28/2023 09:12:01 [facility] SYSTOLIC BLOOD PRESSURE 181 09/29/2023 13:14:54 [facility] DIASTOLIC BLOOD PRESSURE 77 09/29/2023 13:14:54 [facility] PULSE OXIMETRY 96 09/29/2023 13:14:54 [facility] WEIGHT 280.3 09/29/2023 13:14:54 [facility] BMI 43kg/m2 09/29/2023 13:14:54 [facility] TEMPERATURE 97.6 09/29/2023 13:14:54 [facility] PULSE 83 09/29/2023 13:14:54 [facility] RESPIRATION 16 09/29/2023 13:14:54 [facility] SYSTOLIC BLOOD PRESSURE 152 07/30/2023 10:26:23 [facility] DIASTOLIC BLOOD PRESSURE 84 07/30/2023 10:26:23 [facility] PULSE OXIMETRY 94 07/30/2023 10:26:23 [facility] WEIGHT 282.2 07/30/2023 10:26:23 [facility] BMI 43kg/m2 07/30/2023 10:26:23 [facility] TEMPERATURE 98.3 07/30/2023 10:26:23 [facility] PULSE 76 07/30/2023 10:26:23 [facility] RESPIRATION 18 07/30/2023 10:26:23 [facility] SYSTOLIC BLOOD PRESSURE 162 07/08/2023 13:49:52 [facility] DIASTOLIC BLOOD PRESSURE 71 07/08/2023 13:49:52 [facility] PULSE OXIMETRY 93 07/08/2023 13:49:52 [facility] WEIGHT 278 07/08/2023 13:49:[address] [facility] BMI 42kg/m2 07/08/2023 13:49:[facility] PAIN 0 07/08/2023 13:49:[address] [facility] TEMPERATURE 98.8 07/08/2023 13:49:[address] [facility] PULSE 67 07/08/2023 13:49:[address] [facility] RESPIRATION 20 07/08/2023 13:49:[address] [facility] Encounters Combined list of: 1) Encounters from Department of Veterans Affairs facilities going back up to thelast 18 months. 2) Encounters from the Department of Defense facilities going back up to 280 months. Location Location Details Encounter Type Encounter Number Reason For Visit Attending Provider ADM Date DC Date Status Disposition Source [facility] Outpatient Encounter [id number] Radha DEGROOT 10/23 [facility] Outpatient Encounter [id number] 11/06 [facility] Outpatient Encounter [id number] 12/[address] [facility] Encounter [id number] 01/01 [facility] HC PRO PHONE CALL 5-10 MIN [id number] TATO,CARLOS KATI C 01/06 [facility] Outpatient Encounter [id number] 01/07 [facility] [place] [id number] Diagnos is: ICD-10- CM Z00.00 Encntr for general adult medical exam w/o abnorma l finding s
COLLIN LILLY 01/07 [facility] OFFICE O/P EST MOD 30-39 MIN [id number] Diagnos is: ICD-10- CM N18.32 Chronic kidney disease , stage 3b
EDEN MURPHY 01/21 [facility] Outpatient Encounter [id number] 01/22 [facility] Outpatient Encounter [id number] 01/25 [facility] MTMS BY PHARM ADDL 15 MIN [id number] Diagnos is: ICD-10- CM E11.9 Type 2 diabete s mellitu s without complic ations< br/> MYKE CAMPOS 01/29 [facility] Outpatient Encounter [id number] 01/29 [facility] Outpatient Encounter [id number] 02/05 [facility] Outpatient Encounter [id number] KATE HUBBARD A 02/[address] [facility] [address] [facility] Outpatient Encounter [id number] URIEL BEDOLLA Terry 02/06 [facility] HC PRO PHONE CALL 5-10 MIN [id number] Diagnos is: ICD-10- CM N18.9 Chronic kidney disease , unspeci fied
ALEX HANSON S 02/07 [facility] Outpatient Encounter [id number] Diagnos is: ICD-10- CM I10 Essenti al (primar y) hyperte nsion<b r/> KREMMEL,NA THAN S 02/10 [facility] Outpatient Encounter [id number] ROBERT JONES A 02/14 [facility] Outpatient Encounter [id number] Diagnos is: ICD-10- CM R05.1 Acute cough<b r/> BIANCA RIVERA 03/20 [facility] OFFICE O/P EST HI 40-54 MIN [id number] Diagnos is: ICD-10- CM I50.9 Heart failure , unspeci fied
KREMMEL,NA THAN S 04/01 [facility] OFFICE O/P EST MOD 30-39 MIN [id number] Diagnos is: ICD-10- CM J45.998 Other asthma< br/> BIANCA RIVERA 04/01 [facility] Outpatient Encounter [id number] KYLAH ROWE C 04/01 [facility] Outpatient Encounter [id number] 04/21 [facility] HL BHV ASSMT/REAS SESSMENT [id number] Diagnos is: ICD-10- CM Z63.6 Depende nt relativ e needing care at home
LUPILLO JAMES S 04/24 [facility] Outpatient Encounter [id number] Diagnos is: ICD-10- CM E78.5 Hyperli pidemia , unspeci fied
LINDSAY WALL S 05/15 [facility] Outpatient Encounter [id number] 05/15 [facility] Outpatient Encounter [id number] CHAPINCITO GALARZA 05/28 [facility] Outpatient Encounter [id number] 06/06 [facility] OFFICE O/P EST MOD 30 MIN [id number] Diagnos is: ICD-10- CM J45.41 Moderat e persist ent asthma with (acute) exacerb ation<b r/> HERMAN RIVERAINA 06/24 [facility] Outpatient Encounter [id number] 06/24 [facility] Outpatient Encounter [id number] TATOJEANNEShaw GRAHAMSKYLAR C 06/30 [facility] OFFICE O/P EST MOD 30 MIN [id number] Diagnos is: ICD-10- CM I50.9 Heart failure , unspeci fied
COLLIN LILLY 07/07 [facility] Outpatient Encounter [id number] 07/08 [facility] Outpatient Encounter [id number] 07/09 [facility] Outpatient Encounter [id number] MYKE CAMPOS 07/09 [facility] OFFICE O/P EST MOD 30 MIN [id number] Diagnos is: ICD-10- CM J45.998 Other asthma< br/> BIANCA RIVERA 07/29 [facility] Outpatient Encounter [id number] Diagnos is: ICD-10- CM J45.909 Unspeci fied asthma, uncompl icated< br/> BO MARQUEZ 08/07 [facility] OFFICE O/P EST MOD 30 MIN [id number] Diagnos is: ICD-10- CM J45.998 Other asthma< br/> DEYSIHERMAN MARTINEZINA 09/28 [facility] Outpatient Encounter [id number] 10/21 [facility] OFFICE O/P EST MOD 30 MIN [id number] Diagnos is: ICD-10- CM N18.31 Chronic kidney disease , stage 3a
EDEN MURPHY 10/27 [facility] Outpatient Encounter [id number] 11/05 [facility] OFFICE O/P EST MOD 30 MIN [id number] Diagnos is: ICD-10- CM I50.9 Heart failure , unspeci fied
COLLIN LILLY 12/22 [facility] Outpatient Encounter [id number] 12/23 [facility] Outpatient Encounter [id number] 12/24 [facility] Outpatient Encounter [id number] 12/24 [facility] HC PRO PHONE CALL 5-10 MIN [id number] Diagnos is: ICD-10- CM J44.9 Chronic obstruc tive pulmona ry disease , unspeci fied
Terry BUI 12/[address] [facility] [address] [facility] Outpatient Encounter [id number] 01/29 [facility] Outpatient Encounter [id number] Diagnos is: ICD-10- CM Z12.2 Encntr screen for maligna nt neoplas m of respira tory organs< br/> OHLMS,PAVITHRA Y 02/01 [facility] OFF/OP EST MAY X REQ PHY/QHP [id number] Diagnos is: ICD-10- CM Z76.0 Encount er for issue of repeat prescri ption<b r/> BIANCA RIVERA 03/09 [facility] Outpatient Encounter [id number] 03/12 [facility] Outpatient Encounter [id number] ROBERT JONES A 04/08 [facility] Social History Combined list of available smoking, tobacco, and other social history from Department of Defense and Veterans Affairs facilities. Social History Type Response Date Comment Sour e Tobacco smoking status NJIS VA-TOBACCO FORMER USER 12/23/2023 Philip [facility] History of tobacco use VA-TOBACCO QUIT 15 YRS OR MORE 12/23/2023 [facility] History of tobacco use VA-TOBACCO NEVER USED 01/06/2023 [facility] History of tobacco use UT-TOBACCO QUIT 1 TO < 5 YRS 07/13/2021 [place] [facility] History of tobacco use VA-TOBACCO FORMER USER 06/30/2020 [facility] [facility] History of tobacco use VA-TOBACCO FORMER USER 05/24/2020 Philip [facility] History of tobacco use ORYX ADMIT TOBACCO SCREEN NO 07/06/2019 [facility] History of tobacco use TOBACCO OFFERED PT MEDS (PROVIDER) 05/07/2019 [facility] History of tobacco use VA-TOBACCO QUIT < 1 YEAR 04/13/2019 [facility] History of tobacco use ORYX ADMIT TOBACCO SCREEN NO 02/16/2019 [facility] History of tobacco use TOBACCO USER OFFERED MEDS 11/13/2017 [facility] History of tobacco use CURRENT TOBACCO USER 01/14/2017 [facility] History of tobacco use CURRENT TOBACCO USER 09/12/2016 [facility] History of tobacco use CURRENT TOBACCO USER 11/20/2015 [facility] History of tobacco use CURRENT TOBACCO USER 12/26/2014 [facility] Plan of Care List of future care activities from [facility] facilities. Additional future care activities may be listed in the Assessment and Plan section. Date/Time Care Activity Care Activity Detail Facili ty 04/23/2024 AMBULATORY - MEDICINE AMBULATORY - MEDICI [facility] 06/23/2024 AMBULATORY - MEDICINE AMBULATORY - MEDICI [facility] 07/19/2024 AMBULATORY - MEDICINE AMBULATORY - MEDICI [facility] Advance Directives List of completed, amended, or rescinded Advance Directives on record at [facility] Affairs facilities. An actual copy of the Directive is not included. Date Advance Directive Provider Source 07/06/2019 [facility] DIRECTIVE DISCUSSION JJ REZA [facility]
== END 2024-04-19 14:28 | disposition home or self-care (01) | DRG 280 ==
LOC: ANHED 18:41 → ANH2MED 04-13 07:51
PROVIDERS: Internal Medicine Interventional Cardiology; Physician Assistant; Admitting Provider Internal Medicine; Emergency Provider Family Medicine; PCP Family Medicine; Visit Provider Nurse Practitioner
PROC: 4A023N7 Measurement of Cardiac Sampling and Pressure, Left Heart, Percutaneous Approach (ICD-10-PCS; CPT 93452; principal; 2024-04-15 12:00)
DX: I11.0 Hypertensive heart disease with heart failure (principal); I50.23 Acute on chronic systolic (congestive) heart failure; I21.A1 Myocardial infarction type 2; Z68.41 Body mass index [BMI] 40.0-44.9, adult; I42.8 Other cardiomyopathies; D73.4 Cyst of spleen; E11.9 Type 2 diabetes mellitus without complications; E78.5 Hyperlipidemia, unspecified; E66.01 Morbid (severe) obesity due to excess calories; G47.33 Obstructive sleep apnea (adult) (pediatric); I25.10 Atherosclerotic heart disease of native coronary artery without angina pectoris; J44.9 Chronic obstructive pulmonary disease, unspecified; K21.9 Gastro-esophageal reflux disease without esophagitis; N40.0 Benign prostatic hyperplasia without lower urinary tract symptoms; Z95.1 Presence of aortocoronary bypass graft; Z20.822 Contact with and (suspected) exposure to COVID-19; Z79.4 Long term (current) use of insulin
CPT/HCPCS: 36415; 71045; 71275; 76705; 80048; 80053; 82948; 83036; 83735; 83880; 84132; 84443; 84484; 85025; 85027; 85055; 85380; 85610; 85730; 87637; 93005; 93306; 93458; 94640; 96372; 96374; 96375; 96376; 99285; A9270; C1769; C1887; C1894; G0378; J1644; J1650; J1815; J1940; J2003; J2250; J2305; J2919; J3010; J3480; J7040; J7512; Q9967